=== PATIENT | male | born 1945 | race Caucasian/White ===

== ENCOUNTER 2018-08-20 19:29 | Inpatient (IN) | payer MEDICARE, OTHER, SELFPAY ==
[2018-08-20] VITALS (14 sets, daily range): BP systolic 101–150; BP diastolic 49–90; PULSE 93–110; RESP 18–23; TEMP 36.7–37.1; O2SAT 84–95; BMI 33.4; BMI 33.9
--- NOTE | 2018-08-20 19:34 | ED.RN ---
RN CALLED FOR EKG, PULLED OLD EKGS FOR
--- NOTE | 2018-08-20 19:51 | EKG12_ITS ---
Test Reason : CP Blood Pressure : / mmHG Vent. Rate : 104 BPM Atrial Rate : 104 BPM P-R Int : 174 ms QRS Dur : 156 ms QT Int : 384 ms P-R-T Axes : 076 -17 123 degrees QTc Int : 504 ms Sinus tachycardia Non-specific intra-ventricular conduction block Abnormal ECG Confirmed by STEPHANE LAW, ESTEVAN ([id number]), order editor SHIVA LOCKWOOD ([id number]) on 08/22/2018 9:30:23 AM Referred By: Alex Patel Confirmed By:ESTEVAN CALEDRÓN MD
--- NOTE | 2018-08-20 19:51 | RAD_ITS ---
STUDY: X-RAY CHEST REASON FOR EXAM: Male, 73 years old. Chest pain TECHNIQUE: Frontal view of the chest COMPARISON: None. FINDINGS: There are mild congestive changes noted. The lungs are otherwise clear. There are no pleural effusions. There is no pneumothorax. The heart is enlarged. The patient is status post sternotomy. The visualized osseous structures are within normal limits. RAD/Chest 1 View (Portable) IMPRESSION: Cardiomegaly with mild pulmonary vascular congestion. Electronically Signed: Jimmy Deluca, at 20:09 EDT Tel , Service support ,
--- NOTE | 2018-08-20 19:52 | ED.VISSUMM ---
- ER Visit Summary Date of Service: 08/20/18 Chief Complaint: Chest pain History of Present Illness: The patient is a 73 M who presents for chest pain since yesterday. Patient states he has worse pain under the left breast but radiating into the entire anterior chest. No radiation into the back, abdomen, neck or arms. Patient has associated shortness of breath, especially with mild exertion. Patient normally has good exercise tolerance. Patient has nausea. Denies fever, vomiting or diarrhea, back pain. Patient has history of bypass x2, COPD, hypertension, diabetes. He is currently on 81 mg aspirin daily but no blood thinners. He does not smoke. Physical Examination: Vital signs: afebrile, hemodynamically stable, 92% on nasal cannula, hypoxia on room air General: well nourished, well developed, in mild distress Skin: warm, dry, no rash, no pallor HEENT: normocephalic and atraumatic; PERRL, EOMI, moist mucous membranes Cardiovascular: regular rate and rhythm without murmurs, no peripheral edema, 2+ pulses all distal extremities Respiratory: Mild increased work of breathing with tachypnea, lungs are diffusely diminished with inspiratory rales and expiratory wheezes Abdominal: Abdomen is soft, nontender with normoactive bowel sounds, no guarding or rebound, no masses MSK: Moves all extremities, no deformities, normal strength Neuro: Awake and alert, oriented ?4. No facial droop, sensation and motor function intact and symmetric Test Results: Abnormal Lab Results 08/20/18 08/20/18 08/20/18 19:40 19:40 19:40 WBC 18.2 H RBC 4.17 L Hgb 11.4 L Hct 36.1 L MCV 86.6 MCH 27.3 MCHC 31.6 L RDW 16.3 H RDW Differential 52.0 H Plt Count 183 MPV 10.6 Immature Gran % (Auto) 0.200 Neut % (Auto) 78.9 H Lymph % (Auto) 13.1 L [place] % (Auto) 7.4 Eos % (Auto) 0.3 Baso % (Auto) 0.1 Absolute Neuts (auto) 14.4 H Absolute Lymphs (auto) 2.39 Total Counted Not Reportable PT 14.9 INR 1.2 APTT 33.8 Sodium 138 Potassium 4.3 Chloride 109 H Carbon Dioxide 23.0 Anion Gap 6 BUN 36 H Creatinine 1.87 H Estim Creat Clear Calc 31.52 Est GFR (MDRD) Af Amer 46 L Est GFR (MDRD) Non-Af 38 L BUN/Creatinine Ratio 19.3 Glucose 228 H Calcium 8.6 Troponin I 3.190 H* B-Natriuretic Peptide 08/20/18 19:40 WBC RBC Hgb Hct MCV MCH MCHC RDW RDW Differential Plt Count MPV Immature Gran % (Auto) Neut % (Auto) Lymph % (Auto) [place] % (Auto) Eos % (Auto) Baso % (Auto) Absolute Neuts (auto) Absolute Lymphs (auto) Total Counted PT INR APTT Sodium Potassium Chloride Carbon Dioxide Anion Gap BUN Creatinine Estim Creat Clear Calc Est GFR (MDRD) Af Amer Est GFR (MDRD) Non-Af BUN/Creatinine Ratio Glucose Calcium Troponin I B-Natriuretic Peptide 472.5 H Clinical Impression(s) from Imaging Studies Chest X-Ray 08/20/18 19:51 IMPRESSION: Cardiomegaly with mild pulmonary vascular congestion. Electronically Signed: Jimmy Deluca, at 20:09 EDT Tel , Service support , Medications Given Discontinued Medications Aspirin (Aspirin, Baby) 324 mg PO X1 STA Stop: 08/20/18 19:52 Last Admin: 08/20/18 19:58 Dose: 324 mg Clopidogrel Bisulfate (Plavix) 300 mg PO X1 ONE Stop: 08/20/18 20:51 Last Admin: 08/20/18 21:07 Dose: 300 mg Enoxaparin Sodium (Lovenox) 90 mg SC X1 ONE Stop: 08/20/18 20:51 Last Admin: 08/20/18 21:06 Dose: 90 mg Furosemide (Lasix) 40 mg IV X1 ONE Stop: 08/20/18 20:25 Last Admin: 08/20/18 20:51 Dose: 40 mg Nitroglycerin (Nitrostat) 0.4 mg SUBLINGUAL Q5M DONA Stop: 08/20/18 20:11 Last Admin: 08/20/18 20:11 Dose: Not Given Admin: 08/20/18 20:10 Dose: Not Given Admin: 08/20/18 19:58 Dose: 0.4 mg Nitroglycerin (Nitrostat) 0.4 mg SUBLINGUAL X1 ONE Stop: 08/20/18 21:43 Last Admin: 08/20/18 21:44 Dose: 1 tab Nitroglycerin (Nitrostat) 0.4 mg SUBLINGUAL X1 ONE Stop: 08/20/18 21:46 Last Admin: 08/20/18 21:50 Dose: 1 tab Emergency Department Course and Treatment: Patient presents with chest pain, shortness of breath worse on exertion, and lung exam concerning for acute CHF. EKG showed left bundle branch block with no STEMI per Sgarbossa criteria. Chest x-ray was consistent with acute CHF. Patient had leukocytosis of 18.2. Troponin was elevated at 3.19. BNP 472. At initial presentation patient had been given aspirin and sublingual nitroglycerin. He had complete resolution of his chest discomfort after the nitro. Because his presentation was concerning for acute CHF at that point, he was also given IV Lasix. After the elevated troponin came back, patient was discussed with Dr. Maynard for evaluation of concern for acute coronary syndrome. Patient was given subcutaneous Lovenox and loading dose of Plavix. Patient was evaluated by Dr. Maynard in the emergency department. He was admitted for further management of NSTEACS. Patient did have return of chest discomfort and was given additional nitro. A repeat EKG showed no changes from the initial one. Patient was discussed with the hospitalist for admission for further management of acute coronary syndrome. Critical care time of 40 minutes for initial evaluation and stabilization, coordination of care, discussion with master merchandiser and hospitalist, frequent reevaluations, interpretation of labs and EKGs, documentation. Treatment Plan: [] Disposition: [] Impression: non-ST elevation ACS (NSTEACS), acute CHF This note was generated with ECOation software. It may contain incorrect words, spelling, and punctuation that were not noted in review of the chart prior to signing ED Disposition - Plan for ED Patient: Disposition: Acute Care [facility]
[2018-08-20] MEDS: Aspirin 81 MG TAB.CHEW 324 MG PO (19:58)
[2018-08-20 20:08] LABS: Absolute Lymphocyte Count 2.39 X10^3/ul (0.83-4.51); Absolute Neutrophil Count 14.4 X10^3/uL (2.0-7.7); Basophil# 0.02 X10^3/uL; Basophil% 0.1 % (0-1); Eosinophil# 0.05 X10^3/uL; Eosinophils% 0.3 % (0-5); Hematocrit 36.1 % (40-54); Hemoglobin 11.4 g/dl (13.0-16.5); Lymphocyte # 2.39 X10^3/ul (4.0); Lymphocyte % 13.1 % (19-41); Mean Corp Hgb Conc 31.6 g/gl (32-36); Mean Corpuscular Hgb 27.3 pg (27.0-32.0); Mean Corpuscular Volume 86.6 fL (80-94); Mean Platelet Vol. 10.6 fl (6.2-12.0); Monocyte# 1.34 X10^3/uL; Monocyte% 7.4 % (0-10); Neutrophil # 14.36 X10^3/uL (2.7-7.7); Neutrophil % 78.9 % (47-70); Platelet Count 183 K/mm3 (150-450); RBC Distribution Width CV 16.3 % (11.6-14.6); Red Blood Count 4.17 M/mm3 (4.6-6.2); White Blood Count 18.2 K/mm3 (4.4-11.0)
[2018-08-20 20:11] LABS: POSITIVE COUNT NO; POSITIVE DIFFERENTIAL NO; POSITIVE MORPHOLOGY NO
[2018-08-20 20:20] LABS: International Normalized Ratio 1.2; Partial Thromboplast Time 33.8 Seconds (24.1-36.2); Prothrombin Time (Protime)PT. 14.9 SECONDS (11.7-14.9)
[2018-08-20 20:33] LABS: Anion Gap 6 (5-15); BUN 36 mg/dL (7-18); BUN/Creat Ratio 19.3 RATIO (10-20); Calcium,Total 8.6 mg/dL (8.5-10.1); Chloride 109 mmol/L (98-107); Creatinine, Serum 1.87 mg/dL (0.70-1.30); EST Glomerular Filtration Rate 38 mL/min (>60); Est Glom Filt Rate - Afr Amer 46 mL/min (>60); Estimated Creatinine Clearance 31.52 ml/min; Glucose 228 mg/dL (74-106); Potassium 4.3 mmol/L (3.5-5.1); Sodium Level 138 mmol/L (136-145)
--- NOTE | 2018-08-20 20:35 | ED.RN ---
LAB CALLED WITH CRITICAL LAB RESULTS. TROPIN LEVEL 3.912. DR. COLLINS MADE AWARE NO NEW ORDERS AT THIS TIME
[2018-08-20 20:42] LABS: BNP,B-Type NATRIURETIC PEPTIDE 472.5 pg/mL (0-100)
[2018-08-20] MEDS: Furosemide 40 MG/4 ML Vial IV (20:51)
[2018-08-20] MEDS: Enoxaparin 100 MG/ML Syringe 90 MG SC (21:06)
[2018-08-20] MEDS: Clopidogrel Bisulfate 300 MG Tablet PO (21:07)
--- NOTE | 2018-08-20 21:32 | PCM.HP.STD ---
Problem List (1) NSTEMI (non-ST elevated myocardial infarction) Status: Acute (2) Diabetes Status: Chronic (3) HTN (hypertension) Status: Chronic History of Present Illness Date of Admission: 08/21/18 Chief Complaint: chest pain The patient is a 73 year old M with a significant history of CAD status post CABG; and coronary stent; COPD; former smoker hypertension; and diabetes mellitus who presented to the emergency department with excruciating epigastric pain and precordial pain that started 2 days before presentation. Pain is nonradiating. It began while he was a passenger in a car. His pain is continuous. He rated his chest pain severity as a 10 out of 10. He received nitroglycerin at the emergency department that helped with the pain. His pain is exacerbated with walking. Associated with his symptoms is shortness of breath at rest which increases with exertion. EKG at the emergency department showed left bundle branch block. His troponin was severely elevated. Cardiology was consulted from the emergency department and patient received Lovenox and was loaded with Plavix. Past Medical History Past Medical History (Chronic Problems): Chronic Problems Diabetes (Chronic) HTN (hypertension) (Chronic) Allergies No Known Allergies Allergy (Verified 08/20/18 19:33) Home Medications: Ambulatory Orders Medication Instructions Recorded Aspirin [Aspirin, Baby] 81 mg PO DAILY@0800 08/20/18 Clopidogrel Bisulfate [Clopidogrel] 300 mg PO DAILY 08/20/18 Gabapentin [Neurontin] 400 mg PO TID 08/20/18 Glipizide 5 mg PO DAILY 08/20/18 Hydrocodone/Ibuprofen 1 each PO DAILY 08/20/18 [Hydrocodone-Ibuprofen 7.5-200] Metformin HCl [Glucophage] 500 mg PO BID 08/20/18 Sertraline HCl [Zoloft] 50 mg PO DAILY 08/20/18 Surgical History: coronary bypass surgery, - - CAD; bilateral femoropopliteals. Lives: Spouse/ Significant Other Smoking Status: Former smoker Alcohol: None - *Family History Maternal History Items: Heart Disease Paternal History Items: Heart Disease Review of Systems Constitutional: Denies: Chills, Fever, Weight Change HEENT: Denies: Head Aches, Sinus Congestion, Sinus Drainage Cardiovascular: Reports: Chest Pain. Denies: Palpitations Respiratory: Reports: Cough - Chronic, Shortness of breath at rest, Shortness of breath upon exertion, Wheezing. Denies: Sputum production Gastrointestinal: Reports: Abdominal Pain - Epigastric pain. Denies: Nausea, Vomiting Genitourinary: Denies: Dysuria Musculoskeletal: Denies: Joint Pain, Joint Tenderness Skin: Denies: Rash, Wounds Neurological: Denies: Numbness, Tingling, Focal weakness Psychiatric: Denies: Anxiety, Depression, Homicidal Ideations, Suicidal Ideations Hematologic/ Lymphatic: Denies: Easy Bruising, Easy Bleeding VTE Information - Inpt Only VTE Present on Admission: No VTE Mechan Device Prophylaxis: None VTE Pharm Prophylaxis ordered?: No Reason prophylaxis not ordered:: Treatment Not Indicated - Received therapeutic Lovenox for N STEMI Patient Problems: Active and Suspected Problems NSTEMI (non-ST elevated myocardial infarction) (Acute) - Physical Exam General: Alert, Oriented x3, Cooperative HEENT: Atraumatic, PERRLA, EOMI, Normocephalic Neck: Supple, No JVD, Negative Carotid Bruits Lungs: Tachypneic, Using Accessory Muscles, Wheezes Cardiovascular: No murmurs, Tachycardic Abdomen: Bowel Sounds Present, Soft, Non Tender Extremities: No edema, Capillary Refill Less than 3 Seconds Skin: No rashes, No breakdown Musculoskeletal: No Tenderness to Palpation of Joints or Extremities Neurological: Neuro grossly intact Psych/Mental Status: Normal Affect, Appropriate Vital Signs Temp Pulse Resp BP Pulse Ox 98.0 F 94 22 H 130/90 H 92 08/20/18 19:29 08/20/18 21:00 08/20/18 21:00 08/20/18 21:00 08/20/18 21:00 Oxygen Flow Rate (L/min) 4.5 Oxygen Delivery Method Nasal Cannula Weight: 91.1 kg Body Mass Index (BMI) 33.4 Laboratory Tests Past 24 Hrs 08/20/18 08/20/18 08/20/18 19:40 19:40 19:40 WBC 18.2 H RBC 4.17 L Hgb 11.4 L Hct 36.1 L MCV 86.6 MCH 27.3 MCHC 31.6 L RDW 16.3 H RDW Differential 52.0 H Plt Count 183 MPV 10.6 Immature Gran % (Auto) 0.200 Neut % (Auto) 78.9 H Lymph % (Auto) 13.1 L [place] % (Auto) 7.4 Eos % (Auto) 0.3 Baso % (Auto) 0.1 Absolute Neuts (auto) 14.4 H Absolute Lymphs (auto) 2.39 Total Counted Not Reportable PT 14.9 INR 1.2 APTT 33.8 Sodium 138 Potassium 4.3 Chloride 109 H Carbon Dioxide 23.0 Anion Gap 6 BUN 36 H Creatinine 1.87 H Estim Creat Clear Calc 31.52 Est GFR (MDRD) Af Amer 46 L Est GFR (MDRD) Non-Af 38 L BUN/Creatinine Ratio 19.3 Glucose 228 H Calcium 8.6 Troponin I 3.190 H* B-Natriuretic Peptide 08/20/18 19:40 WBC RBC Hgb Hct MCV MCH MCHC RDW RDW Differential Plt Count MPV Immature Gran % (Auto) Neut % (Auto) Lymph % (Auto) [place] % (Auto) Eos % (Auto) Baso % (Auto) Absolute Neuts (auto) Absolute Lymphs (auto) Total Counted PT INR APTT Sodium Potassium Chloride Carbon Dioxide Anion Gap BUN Creatinine Estim Creat Clear Calc Est GFR (MDRD) Af Amer Est GFR (MDRD) Non-Af BUN/Creatinine Ratio Glucose Calcium Troponin I B-Natriuretic Peptide 472.5 H Assessment/Plan All Active Problems NSTEMI (non-ST elevated myocardial infarction) (Acute) The patient is a 73 year old M with a significant history of CAD status post CABG; and coronary stent; hypertension; and diabetes mellitus who presented to the emergency department with excruciating epigastric pain and precordial pain and found to have left bundle branch block; and severely elevated troponin consistent with non-ST elevation RI. Non-ST elevation RI Admit to a monitored bed on PCU CXR independently reviewed confirms diffuse infiltrates. EKG independently reviewed confirms left bundle branch block. Received aspirin 325 mg at emergency department. Received loading dose of Plavix in the emergency department Plavix continued ASA 81 mg p.o. daily continue SL NTG 0.4 mg prn as needed for chest pain Morphine as needed for pain We will check lipid panel. Started on high intensity statin by cardiology. Review of labs showed elevated troponin of 3.190. Serial cardiac enzymes ordered Stat EKG as needed for chest pain Patient kept n.p.o. Cardiology is following. Plan is for cath in a.m. Congestive heart failure. Chest x-ray and independent review confirms bilateral infiltrates. Lasix 40 mg x1 ordered by cardiology. Patient started on beta-dileep and lisinopril. Cardiac cath planned in a.m. Hypertension On presentation his blood pressure was stable Started on goal-directed medication for heart failure by cardiology. Trend blood pressure and adjust blood pressure medications. Acute hypoxemic respiratory failure. Patient noted to be on 5 L with oxygen saturation in 93%. Denies home oxygen use. Patient wheezing; using accessory muscles of respiration and tachypnea. Probable viral infection. Patient noted to be wheezing that could also be from cardiac asthma Reportedly patient has a history of COPD reported that patient has been complaining of body aches. thinks that she herself has cold-like symptoms We will order a comprehensive respiratory pathogen panel. Obstructive sleep apnea Reportedly patient does not use any NPPV because of claustrophobia. On nasal cannula at this time because of hypoxia. Diabetes mellitus Presentation his blood glucose was not within goal. Home glipizide and metformin Accucheck qachs with correction scale insulin Hypoglycemia protocol ordered. Depression Zoloft continued. DVT prophylaxis Patient received therapeutic Lovenox for NSTEMI. Code Visit Inpatient E&M: 21053 Init Hosp L3
--- NOTE | 2018-08-20 21:44 | PCM.CONS.C ---
Reason for Consult Date of Consultation: 08/20/18 Reason for Consultation: Chest discomfort and abnormal cardiac enzymes History of Present Illness: The patient is a 73 year old M with a history of coronary artery bypass surgery, severe peripheral vascular disease status post previous femorofemoral bypass surgery, hypertension, dyslipidemia who presented to the emergency room today after complaining of shortness of breath and chest discomfort which has been going on for a few days. He previously has been followed up by a poultry hatchery manager in [place]. He denies any dizziness or diaphoresis no near syncope or syncope. He apparently has been compliant with his medications. In the emergency room he was noted to be short of breath and mildly hypertensive and tachycardic. His EKG demonstrated left bundle branch block. Cardiac enzymes came back and were noted to be abnormal. Cardiology was called for further evaluation and recommendations. At this particular time he is pain-free. He had been given sublingual nitroglycerin with significant improvement. [] Past Medical History Allergies/Adverse Reactions: Allergies No Known Allergies Allergy (Verified 08/20/18 19:33) Home Medications: Ambulatory Orders Medication Instructions Recorded Aspirin [Aspirin, Baby] 81 mg PO DAILY@0800 08/20/18 Clopidogrel Bisulfate [Clopidogrel] 300 mg PO DAILY 08/20/18 Gabapentin [Neurontin] 400 mg PO TID 08/20/18 Glipizide 5 mg PO DAILY 08/20/18 Hydrocodone/Ibuprofen 1 each PO DAILY 08/20/18 [Hydrocodone-Ibuprofen 7.5-200] Metformin HCl [Glucophage] 500 mg PO BID 08/20/18 Sertraline HCl [Zoloft] 50 mg PO DAILY 08/20/18 Surgical History: coronary bypass surgery, - - Peripheral vascular surgery Lives: Spouse/ Significant Other Smoking Status: Former smoker Tobacco Use: Non-smoker Alcohol: None Drugs: None Review of Systems - Review of Systems General: Denies: Fever, Night Sweats, Fatigue HEENT: Denies: Vision Change Cardiovascular: Reports: Chest Discomfort at Rest, Chest Discomfort with Exertion, Shortness of Breath at Rest, Peripheral Edema. Denies: Chest Discomfort, Shortness of Breath, Orthopnea, PND, Palpitations, Lightheadedness, Dizziness, Near Syncope, Syncope Respiratory: Denies: Cough, Sputum Production, Hemoptysis Gastrointestinal: Reports: Indigestion. Denies: Hematemesis, Hematochezia, Melena Genitourinary: Denies: Dysuria, Hematuria Muscoloskeletal: Denies: Myalgias Skin: Denies: Rash Neurological: Reports: Dizziness Psychiatric: Reports: Anxiety Endocrine: Reports: Heat Intolerance Hematologic/ Lymphatic: Denies: Anemia Subjectve: Pleasant gentleman in no apparent distress sitting in bed Objective: Vital Signs Temp Pulse Resp BP Pulse Ox 98.0 F 94 22 H 130/90 H 92 08/20/18 19:29 08/20/18 21:00 08/20/18 21:00 08/20/18 21:00 08/20/18 21:00 Oxygen Flow Rate (L/min) 4.5 Oxygen Delivery Method Nasal Cannula Weight: 200 lb 13.458 oz Body Mass Index (BMI) 33.4 General: Awake, Alert, Oriented x 3 HEENT: PERRL, EOMI, Sclera Non Icteric Neck: Supple, Good ROM, No Lymph Node Enlargement Lungs: Diminished Adrian Bases Cardiovascular: Regular Rhythm, Normal S1, Normal S2, No Murmurs, No Rubs, No Gallops Vascular: No Carotid Bruits, Normal Femoral Pulses, Normal Radial Pulses, Normal Dorsalis Pedal Pulse, Normal Posterior Tibial Pulses Abdomen: Bowel Sounds Present, Soft, Non Tender, No HSM, No Organomegaly Extremities: No Cyanosis, No Clubbing, Bilateral Edema +1 Musculoskeletal: No Erythema Skin: No Rashes Lymphatic: No Lymph Node Enlargement Neurological: No Focal Motor or Sensory Deficit Psych/Mental Status: Appropriate 08/20/18 19:40: WBC 18.2 H, RBC 4.17 L, Hgb 11.4 L, Hct 36.1 L, MCV 86.6, MCH 27.3, MCHC 31.6 L, RDW 16.3 H, RDW Differential 52.0 H, Plt Count 183, MPV 10.6, Immature Gran % (Auto) 0.200, Neut % (Auto) 78.9 H, Lymph % (Auto) 13.1 L, [place] % (Auto) 7.4, Eos % (Auto) 0.3, Baso % (Auto) 0.1, Absolute Neuts (auto) 14.4 H, Total Counted Not Reportable 08/20/18 19:40: PT 14.9, INR 1.2, APTT 33.8 08/20/18 19:40: Sodium 138, Potassium 4.3, Chloride 109 H, Carbon Dioxide 23.0, Anion Gap 6, BUN 36 H, Creatinine 1.87 H, Est GFR (MDRD) Af Amer 46 L, Est GFR (MDRD) Non-Af 38 L, BUN/Creatinine Ratio 19.3, Glucose 228 H, Calcium 8.6, Troponin I 3.190 H* 08/20/18 19:40: B-Natriuretic Peptide 472.5 H Rhythm: EKG: Sinus tachycardia with a left bundle branch block Assessment/Plan 1. Non-ST elevation myocardial infarction Patient presents with a non-ST elevation myocardial infarction. He does have known coronary artery disease. The exact bypass graft locations are not known. I would however recommend the following Aspirin 81 mg a day Clopidogrel loading with 300 mg Clopidogrel 75 mg a day Was scheduled for cardiac catheterization tomorrow via the left radial approach and depending on the findings further recommendations will be made. 2. Mild congestive heart failure Patient is noted to have mild congestive heart failure with the above secondary to the coronary artery disease Would recommend Lasix 40 mg x1 Echocardiogram to assess left ventricular function Start beta-dileep with Coreg 3.125 mg twice a day Start lisinopril 2.5 mg a day 3. Hypertension Blood pressure appears to be under decent control at this particular time we will start beta-dileep and ANTOINE inhibitor as noted above 4. Risk factor modification Will continue with aggressive risk factor modification Thank you for allowing me to participate in the care of your patient. Please don't hesitate to call if any issues arise
--- NOTE | 2018-08-20 21:46 | ED.RN ---
PT HAD INCREASED PAIN WITH EXERTION OF TAKING PANTS OFF AND TRYING TO URINATE. MD AWARE. ORDERED REMAINING TWO NTG SL. PT STABLE. WILL MONITOR.
--- NOTE | 2018-08-20 21:48 | CON.PCM_ITS ---
Reason for Consult Date of Consultation: 08/20/18 Reason for Consultation: Chest discomfort and abnormal cardiac enzymes History of Present Illness: The patient is a 73 year old M with a history of coronary artery bypass surgery, severe peripheral vascular disease status post previous femorofemoral bypass surgery, hypertension, dyslipidemia who presented to the emergency room today after complaining of shortness of breath and chest discomfort which has been going on for a few days. He previously has been followed up by a geriatric nurse in [place]. He denies any dizziness or diaphoresis no near syncope or syncope. He apparently has been compliant with his medications. In the emergency room he was noted to be short of breath and mildly hypertensive and tachycardic. His EKG demonstrated left bundle branch block. Cardiac enzymes came back and were noted to be abnormal. Cardiology was called for further evaluation and recommendations. At this particular time he is pain-free. He had been given sublingual nitroglycerin with significant improvement. [] Past Medical History Allergies/Adverse Reactions: Allergies No Known Allergies Allergy (Verified 08/20/18 19:33) Home Medications: Ambulatory Orders Medication Instructions Recorded Aspirin [Aspirin, Baby] 81 mg PO DAILY@0800 08/20/18 Clopidogrel Bisulfate [Clopidogrel] 300 mg PO DAILY 08/20/18 Gabapentin [Neurontin] 400 mg PO TID 08/20/18 Glipizide 5 mg PO DAILY 08/20/18 Hydrocodone/Ibuprofen 1 each PO DAILY 08/20/18 [Hydrocodone-Ibuprofen 7.5-200] Metformin HCl [Glucophage] 500 mg PO BID 08/20/18 Sertraline HCl [Zoloft] 50 mg PO DAILY 08/20/18 Surgical History: coronary bypass surgery, - - Peripheral vascular surgery Lives: Spouse/ Significant Other Smoking Status: Former smoker Tobacco Use: Non-smoker Alcohol: None Drugs: None Review of Systems - Review of Systems General: Denies: Fever, Night Sweats, Fatigue HEENT: Denies: Vision Change Cardiovascular: Reports: Chest Discomfort at Rest, Chest Discomfort with Exertion, Shortness of Breath at Rest, Peripheral Edema. Denies: Chest Discomfort, Shortness of Breath, Orthopnea, PND, Palpitations, Lightheadedness, Dizziness, Near Syncope, Syncope Respiratory: Denies: Cough, Sputum Production, Hemoptysis Gastrointestinal: Reports: Indigestion. Denies: Hematemesis, Hematochezia, Melena Genitourinary: Denies: Dysuria, Hematuria Muscoloskeletal: Denies: Myalgias Skin: Denies: Rash Neurological: Reports: Dizziness Psychiatric: Reports: Anxiety Endocrine: Reports: Heat Intolerance Hematologic/ Lymphatic: Denies: Anemia Subjectve: Pleasant gentleman in no apparent distress sitting in bed Objective: Vital Signs Temp Pulse Resp BP Pulse Ox 98.0 F 94 22 H 130/90 H 92 08/20/18 19:29 08/20/18 21:00 08/20/18 21:00 08/20/18 21:00 08/20/18 21:00 Oxygen Flow Rate (L/min) 4.5 Oxygen Delivery Method Nasal Cannula Weight: 200 lb 13.458 oz Body Mass Index (BMI) 33.4 General: Awake, Alert, Oriented x 3 HEENT: PERRL, EOMI, Sclera Non Icteric Neck: Supple, Good ROM, No Lymph Node Enlargement Lungs: Diminished Adrian Bases Cardiovascular: Regular Rhythm, Normal S1, Normal S2, No Murmurs, No Rubs, No Gallops Vascular: No Carotid Bruits, Normal Femoral Pulses, Normal Radial Pulses, Normal Dorsalis Pedal Pulse, Normal Posterior Tibial Pulses Abdomen: Bowel Sounds Present, Soft, Non Tender, No HSM, No Organomegaly Extremities: No Cyanosis, No Clubbing, Bilateral Edema +1 Musculoskeletal: No Erythema Skin: No Rashes Lymphatic: No Lymph Node Enlargement Neurological: No Focal Motor or Sensory Deficit Psych/Mental Status: Appropriate 08/20/18 19:40: WBC 18.2 H, RBC 4.17 L, Hgb 11.4 L, Hct 36.1 L, MCV 86.6, MCH 27.3, MCHC 31.6 L, RDW 16.3 H, RDW Differential 52.0 H, Plt Count 183, MPV 10.6, Immature Gran % (Auto) 0.200, Neut % (Auto) 78.9 H, Lymph % (Auto) 13.1 L, [place] % (Auto) 7.4, Eos % (Auto) 0.3, Baso % (Auto) 0.1, Absolute Neuts (auto) 14.4 H , Total Counted Not Reportable 08/20/18 19:40: PT 14.9, INR 1.2, APTT 33.8 08/20/18 19:40: Sodium 138, Potassium 4.3, Chloride 109 H, Carbon Dioxide 23.0, Anion Gap 6, BUN 36 H, Creatinine 1.87 H, Est GFR (MDRD) Af Amer 46 L, Est GFR (MDRD) Non-Af 38 L, BUN/Creatinine Ratio 19.3, Glucose 228 H, Calcium 8.6, Troponin I 3.190 H* 08/20/18 19:40: B-Natriuretic Peptide 472.5 H Rhythm: EKG: Sinus tachycardia with a left bundle branch block Assessment/Plan 1. Non-ST elevation myocardial infarction * Patient presents with a non-ST elevation myocardial infarction. He does have known coronary artery disease. The exact bypass graft locations are not known. I would however recommend the following * Aspirin 81 mg a day * Clopidogrel loading with 300 mg * Clopidogrel 75 mg a day * Was scheduled for cardiac catheterization tomorrow via the left radial approach and depending on the findings further recommendations will be made. * 2. Mild congestive heart failure * Patient is noted to have mild congestive heart failure with the above secondary to the coronary artery disease * Would recommend Lasix 40 mg x1 * Echocardiogram to assess left ventricular function * Start beta-dileep with Coreg 3.125 mg twice a day * Start lisinopril 2.5 mg a day * 3. Hypertension * Blood pressure appears to be under decent control at this particular time we will start beta-dileep and ANTOINE inhibitor as noted above * 4. Risk factor modification * Will continue with aggressive risk factor modification * * Thank you for allowing me to participate in the care of your patient. Please don't hesitate to call if any issues arise
--- NOTE | 2018-08-20 22:01 | EKG12_ITS ---
Test Reason : REPEAT CP Blood Pressure : / mmHG Vent. Rate : 104 BPM Atrial Rate : 104 BPM P-R Int : 172 ms QRS Dur : 148 ms QT Int : 378 ms P-R-T Axes : 078 -16 137 degrees QTc Int : 497 ms Sinus tachycardia Possible Left atrial enlargement Nonspecific intra ventricular conduction delay Abnormal ECG Confirmed by STEPHANE LAW, ESTEVAN ([id number]), news video editor SHIVA LOCKWOOD ([id number]) on 08/22/2018 9:31:09 AM Referred By: Alex Patel Confirmed By:ESTEVAN CALDERÓN MD
[2018-08-20] MEDS: Carvedilol 3.125 MG TABLET PO (23:26)
[2018-08-20] MEDS: Atorvastatin Calcium 40 MG Tablet PO (23:26)
[2018-08-20 23:40] LABS: Bedside Glucose 217 mg/dL (70-110)
--- NOTE | 2018-08-20 23:56 | EKG12_ITS ---
Test Reason : ADM EKG Blood Pressure : / mmHG Vent. Rate : 103 BPM Atrial Rate : 103 BPM P-R Int : 166 ms QRS Dur : 150 ms QT Int : 388 ms P-R-T Axes : 077 -16 122 degrees QTc Int : 508 ms Sinus tachycardia Possible Left atrial enlargement Left bundle branch block Abnormal ECG When compared with ECG of 17-JUL-2009 12:45, Vent. rate has increased BY 40 BPM Left bundle branch block is now Present Confirmed by DAX LAW, LIS ([id number]), supervising film or videotape editor SHIVA LOCKWOOD ([id number]) on 08/23/2018 9:54:01 AM Referred By: Alex Patel Confirmed By:LIS VERDUZCO MD
[2018-08-21] VITALS (15 sets, daily range): BP systolic 99–133; BP diastolic 50–82; PULSE 80–99; RESP 14–20; TEMP 36.6–36.8; O2SAT 91–94
[2018-08-21] MEDS: 0.9% NaCl Peripheral Flush Adult/Peds IV ×3 (00:55→16:55)
[2018-08-21] MEDS: Insulin Lispro 100 UNIT/ML INSULN.PEN SQ ×2 (00:57→16:58)
--- NOTE | 2018-08-21 05:55 | EKG12_ITS ---
Test Reason : AM EKG Blood Pressure : / mmHG Vent. Rate : 093 BPM Atrial Rate : 093 BPM P-R Int : 164 ms QRS Dur : 148 ms QT Int : 396 ms P-R-T Axes : 067 -16 131 degrees QTc Int : 492 ms Normal sinus rhythm Possible Left atrial enlargement Left bundle branch block Abnormal ECG When compared with ECG of 20-AUG-2018 23:56, MANUAL COMPARISON REQUIRED, DATA IS UNCONFIRMED Confirmed by DAX LAW, LIS ([id number]), manuscript editor SHIVA LOCKWOOD ([id number]) on 08/23/2018 9:52:15 AM Referred By: Alex Patel Confirmed By:LIS VERDUZCO MD
[2018-08-21] MEDS: Gabapentin 400 MG Capsule PO ×2 (06:14→13:03)
[2018-08-21] MEDS: Aspirin E.C. 81 MG Tablet PO (06:14)
[2018-08-21] MEDS: Clopidogrel Bisulfate 75 MG Tablet PO (06:14)
[2018-08-21] MEDS: Carvedilol 3.125 MG TABLET PO (06:14)
[2018-08-21] MEDS: 0.9% Normal Saline 1,000 ML 15 ML IV (06:15)
[2018-08-21 06:32] LABS: Absolute Lymphocyte Count 1.62 X10^3/ul (0.83-4.51); Absolute Neutrophil Count 10.8 X10^3/uL (2.0-7.7); Basophil# 0.01 X10^3/uL; Basophil% 0.1 % (0-1); Eosinophil# 0.05 X10^3/uL; Eosinophils% 0.4 % (0-5); Hematocrit 35.1 % (40-54); Hemoglobin 10.9 g/dl (13.0-16.5); Lymphocyte # 1.62 X10^3/ul (4.0); Lymphocyte % 11.9 % (19-41); Mean Corp Hgb Conc 31.1 g/gl (32-36); Mean Corpuscular Hgb 26.6 pg (27.0-32.0); Mean Corpuscular Volume 85.6 fL (80-94); Mean Platelet Vol. 10.6 fl (6.2-12.0); Monocyte# 1.15 X10^3/uL; Monocyte% 8.4 % (0-10); Neutrophil # 10.81 X10^3/uL (2.7-7.7); Platelet Count 162 K/mm3 (150-450); RBC Distribution Width CV 16.2 % (11.6-14.6); White Blood Count 13.7 K/mm3 (4.4-11.0)
[2018-08-21 06:35] LABS: Bedside Glucose 133 mg/dL (70-110)
[2018-08-21 06:37] LABS: POSITIVE COUNT NO; POSITIVE DIFFERENTIAL NO; POSITIVE MORPHOLOGY NO
[2018-08-21 06:41] LABS: International Normalized Ratio 1.2; Prothrombin Time (Protime)PT. 14.7 SECONDS (11.7-14.9)
--- NOTE | 2018-08-21 07:36 | NURSING ---
report called to laborer tanbark REGLA Eid
[2018-08-21 07:37] LABS: Anion Gap 2 (5-15); BUN 34 mg/dL (7-18); BUN/Creat Ratio 20.7 RATIO (10-20); Calcium,Total 8.8 mg/dL (8.5-10.1); Chloride 108 mmol/L (98-107); Cholesterol 113 mg/dL (200); Creatinine, Serum 1.64 mg/dL (0.70-1.30); EST Glomerular Filtration Rate 44 mL/min (>60); Est Glom Filt Rate - Afr Amer 54 mL/min (>60); Estimated Creatinine Clearance 35.94 ml/min; Glucose 128 mg/dL (74-106); High Density Lipoprotein 58 mg/dL; Potassium 4.2 mmol/L (3.5-5.1); Sodium Level 137 mmol/L (136-145); Triglycerides 123 mg/dL; Very Low Density Lipoprotein 25 mg/dL (5-40)
--- NOTE | 2018-08-21 09:33 | PN.CARD_ITS ---
Subjectve: Patient seen and evaluated. Objective: Vital Signs Temp Pulse Resp BP Pulse Ox 98.3 F 94 16 121/67 H 94 08/21/18 06:09 08/21/18 07:00 08/21/18 06:09 08/21/18 06:09 08/21/18 06:40 Oxygen Flow Rate (L/min) 4.5 Oxygen Delivery Method Nasal Cannula Weight: 203 lb 11.314 oz Body Mass Index (BMI) 33.9 Intake and Output for Last 24 Hours 08/19/18 08/20/18 08/21/18 23:59 23:59 23:59 Intake Total 400 / 400 Output Total 1250 / 1250 Balance -850 / -850 General: Awake, Alert, Oriented x 3 HEENT: PERRL, EOMI, Sclera Non Icteric Neck: Supple, Good ROM, No Lymph Node Enlargement Lungs: Clear to auscultation, Rales - Adrian Bases Cardiovascular: Regular Rhythm, Normal S1, Normal S2, No Murmurs, No Rubs, No Gallops Vascular: No Carotid Bruits, Normal Femoral Pulses, Normal Radial Pulses, Normal Dorsalis Pedal Pulse, Normal Posterior Tibial Pulses Abdomen: Bowel Sounds Present, Soft, Non Tender, No HSM, No Organomegaly Extremities: No Cyanosis, No Clubbing, No edema Neurological: No Focal Motor or Sensory Deficit Psych/Mental Status: Appropriate 08/20/18 19:40: WBC 18.2 H, RBC 4.17 L, Hgb 11.4 L, Hct 36.1 L, MCV 86.6, MCH 27.3, MCHC 31.6 L, RDW 16.3 H, RDW Differential 52.0 H, Plt Count 183, MPV 10.6, Immature Gran % (Auto) 0.200, Neut % (Auto) 78.9 H, Lymph % (Auto) 13.1 L, [place] % (Auto) 7.4, Eos % (Auto) 0.3, Baso % (Auto) 0.1, Absolute Neuts (auto) 14.4 H, Total Counted Not Reportable 08/20/18 19:40: PT 14.9, INR 1.2, APTT 33.8 08/20/18 19:40: Sodium 138, Potassium 4.3, Chloride 109 H, Carbon Dioxide 23.0, Anion Gap 6, BUN 36 H, Creatinine 1.87 H, Est GFR (MDRD) Af Amer 46 L, Est GFR ( MDRD) Non-Af 38 L, BUN/Creatinine Ratio 19.3, Glucose 228 H, Calcium 8.6, Troponin I 3.190 H* 08/20/18 19:40: B-Natriuretic Peptide 472.5 H 08/21/18 00:10: Troponin I 3.650 H* 08/21/18 03:26: Troponin I 4.580 H* 08/21/18 06:00: Sodium 137, Potassium 4.2, Chloride 108 H, Carbon Dioxide 27.0, Anion Gap 2 L, BUN 34 H, Creatinine 1.64 H, Est GFR (MDRD) Af Amer 54 L, Est GFR (MDRD) Non-Af 44 L, BUN/Creatinine Ratio 20.7 H, Glucose 128 H, Calcium 8.8, Troponin I 4.480 H*, Triglycerides 123, Cholesterol 113, LDL Cholesterol 30, VLDL Cholesterol 25, HDL Cholesterol 58 08/21/18 06:00: WBC 13.7 H, RBC 4.10 L, Hgb 10.9 L, Hct 35.1 L, MCV 85.6, MCH 26.6 L, MCHC 31.1 L, RDW 16.2 H, RDW Differential 51.0 H, Plt Count 162, MPV 10.6, Immature Gran % (Auto) 0.200, Neut % (Auto) 79.0 H, Lymph % (Auto) 11.9 L, [place] % (Auto) 8.4, Eos % (Auto) 0.4, Baso % (Auto) 0.1, Absolute Neuts (auto) 10.8 H, Total Counted Not Reportable 08/21/18 06:00: PT 14.7, INR 1.2, APTT 42.0 H Rhythm: EKG: ECHO: Stress Test: Cardiac Cath: PCI: CT Surgery: Holter monitor: EPS: PPM: CXR: Chest CT Scan: Medical Necessity - Tobacco Use Smoking Status: Former smoker Tobacco Use: Non-smoker Assessment/Plan 1. Non-ST elevation myocardial infarction * Patient presents with a non-ST elevation myocardial infarction. He does have known coronary artery disease. The exact bypass graft locations are not known. I would however recommend the following * Aspirin 81 mg a day * Clopidogrel loading with 300 mg * Cardiac catheterization demonstrated the following: Distal high-grade left main coronary artery lesion. Totally occluded right coronary arteries Totally occluded left anterior descending artery. Ramus intermedius with moderate disease. Nondominant circumflex with moderate disease. Left internal mammary artery to the left anterior descending artery which is patent with collaterals from the left to right. No other saphenous vein grafts identified. Based on the above angiographic findings will consider angioplasty to the distal left main coronary artery. We will see how he does and transfer him to a tertiary care facility for the above. 2. Mild congestive heart failure * Patient is noted to have mild congestive heart failure with the above secondary to the coronary artery disease * Would recommend Lasix 40 mg x1 * Echocardiogram to assess left ventricular function * Start beta-dileep with Coreg 3.125 mg twice a day * Start lisinopril 2.5 mg a day * 3. Hypertension * Blood pressure appears to be under decent control at this particular time we will start beta-dileep and ANTOINE inhibitor as noted above * 4. Risk factor modification * Will continue with aggressive risk factor modification * * Thank you for allowing me to participate in the care of your patient. Please don't hesitate to call if any issues arise
[2018-08-21] MEDS: Sertraline 50 MG Tablet PO (09:58)
[2018-08-21 11:10] LABS: Bedside Glucose 134 mg/dL (70-110)
--- NOTE | 2018-08-21 12:34 | NURSING ---
Called [facility] transfer center, spoke with Shelby about transfer today. Shelby will call PCU with update on bed availability.Mery ARAUZ aware in PCU about probable transfer today.
--- NOTE | 2018-08-21 16:23 | RAD_ITS ---
STUDY: X-RAY CHEST REASON FOR EXAM: Male, 73 years old. Shortness breath TECHNIQUE: Frontal view of the chest COMPARISON: 08/20/2018 FINDINGS: There are minimal congestive changes noted. This is decreased when compared with the prior exam for The lungs are otherwise clear. There are no pleural effusions. There is no pneumothorax. The heart is enlarged, but stable. Again noted are sternotomy wires. The visualized osseous structures are within normal limits. RAD/Chest 1 View (Portable) IMPRESSION: Minimal pulmonary vascular congestion which is decreased when compared with the prior exam. Electronically Signed: Jimmy Deluca, at 16:48 EDT Tel , Service support ,
--- NOTE | 2018-08-21 16:30 | CL.D_ITS ---
Patient Name: JONAH ALEXANDRA Study Date: 08/21/2018 Performing: Rodrigo Maynard MD Ht: 65 inches 165 cm : 1945 Wt: 203.1 lbs 92 kg Age: 73 Gender: male BSA: 1.99 PROCEDURE(S) PERFORMED UK20-DKT/COR/CABG DC11-AO ROOT ANGIO WITH HEART CATH CLINICAL PROFILE AND INDICATIONS Indications: Suspected CAD, Stable Known CAD Heart Failure: NYHA Class: 3, Newly Diagnosed: Yes, Heart Failure Type: Systolic Stress/Imaging Stress/Image Study Performed: No CONCLUSIONS Severe coronary artery disease with distal left main high-grade stenosis, moderate disease noted in t he left circumflex artery, totally occluded right coronary artery and left anterior descending artery , patent left internal mammary artery to the left anterior descending artery. RECOMMENDATIONS Medical therapy Consider PCI to Left main DESCRIPTION OF PROCEDURE The patient arrived to the procedure lab. The risks and benefits of the procedure as well as a full d escription of our services here and current unavailability of surgical backup were fully explained to the patient and/or their significant other prior to the catheterization. The Timeout was completed, verifying the correct patient and procedure. The patient's procedural site was prepped and draped in the usual fashion. Local anesthetic was given subcutaneously to left radial region with Lidocaine 2%. Using a modified Seldinger technique, arterial access was obtained via the left radial artery, a 6Fr sheath was inserted. Left internal mammary artery graft to the LAD selective angiography was perfor med in multiple views using a 5 Fr. IM catheter. Right Coronary Artery selective angiography was then performed in multiple views using a 5 Fr. 4.0 Frederica catheter. Saphenous Vein graft to the unknown ar mike (occluded graft) selective angiography was performed in single view using a 5 Fr. 4.0 Frederica catheter. Left Coronary Artery selective angiography was performed in multiple views using a 5 Fr. 4.0 Frederica catheter. Ascending (root) aorta selective angiography was then performed in single vie w. Ascending (root) aorta selective angiography was then performed in single view. Left Coronary Hellen ry selective angiography was performed in multiple views using a 5 Fr. JL 4.5 catheter. Left Coronary Artery selective angiography was performed in multiple views using a 5 Fr. JL3.5 catheter.The arteri al sheath was pulled and a TR Band was applied for hemostasis 13 cc air CORONARY ANGIOGRAPHY DOMINANCE: Right Dominant LEFT HEART ASSESSMENT Left Ventricular Ejection Fraction: Not assessed LEFT MAIN: Distal 90 LEFT ANTERIOR DECENDING ARTERY: is occluded CIRCUMFLEX ARTERY: MID CIRC: Moderate luminal irregularities up to 50% RAMUS: No significant disease noted RIGHT CORONARY ARTERY: PROX RCA: is occluded GRAFTS: COLIN graft to the Mid LAD is patent Saphenous Vein graft to the RPDA is totally occluded COLLATERAL FLOW: Collateral flow from Left to Right AORTIC ROOT: Dilated COMPLICATIONS No Complications PROCEDURE MEDICATIONS Versed 1 mg IV Oxygen: 4.5 L/min via nasal cannula Lasix 40 mg IV 08/21/2018 08:33:26 Heparin diluted in 23cc Heparinized saline. Patient given 5cc IA of this solution. 08/21/2018 08:40:4 0 Verapamil 2.5mg, Ntg 100mcgs, 2000 units of Heparin diluted in 23cc Heparinized saline. Patient give n 5cc IA of this solution. 08/21/2018 08:40:40 SUMMARY OF HEMODYNAMIC DATA Time AIR REST ECG 08:18:48 AO 110/55 (76) SA 08:43:09 LV 130/16, 36 09:21:28 LVp 133/13, 33 09:21:33 AOp 128/65 (90) 09:21:38 Signed By Rodrigo Maynard MD On 08/21/2018 16:29:53 Rodrigo Maynard MD
[2018-08-21] MEDS: Ipratropium/Albuterol Sulfate 3 ML AMPUL.NEB INHALATION (16:46)
[2018-08-21] MEDS: Furosemide 100 MG/10 ML Vial 80 MG IV (16:54)
[2018-08-21 17:06] LABS: Bedside Glucose 163 mg/dL (70-110)
[2018-08-21] MEDS: Ceftriaxone 1 GM/50 ML BAG IV (17:22)
--- NOTE | 2018-08-21 18:44 | PCM.DC.SUM ---
Discharge Date and Diagnosis - Problem List Patient Problems: Active and Suspected Problems NSTEMI (non-ST elevated myocardial infarction) (Acute) Date of Admission: 08/21/18 Date of Discharge: 08/21/18 - Primary Discharge Diagnosis Active and Suspected Problems NSTEMI (non-ST elevated myocardial infarction) (Acute) L basilar pneumonia - Secondary Discharge Diagnosis Chronic Problems Diabetes Type II (Chronic) HTN (hypertension) (Chronic) morbid obesity Hx of JAYNE - non-compliant with CPAP Diabetic peripheral polyneuropathy Peripheral vascular disease History of CABG Normocytic anemia with an elevated RDW Chronic renal failure stage III Hospital Course and Treatment Imaging Results: 08/21/18 16:23 Chest 1 View (Portable) [RAD] Urgent Clinical Impression(s) from Imaging Studies Chest X-Ray 08/20/18 19:51 IMPRESSION: Cardiomegaly with mild pulmonary vascular congestion. Electronically Signed: Jimmy Deluca, at 20:09 EDT Tel , Service support , Chest X-Ray 08/21/18 16:23 IMPRESSION: Minimal pulmonary vascular congestion which is decreased when compared with the prior exam. Electronically Signed: Jimmy Deluca, at 16:48 EDT Tel , Service support , Laboratory Tests 08/21/18 08/21/18 08/21/18 Range/Units 16:57 11:03 06:22 WBC (4.4-11.0) K/mm3 RBC (4.6-6.2) M/mm3 Hgb (13.0-16.5) g/dl Hct (40-54) % MCV (80-94) fL MCH (27.0-32.0) pg MCHC (32-36) g/gl RDW (11.6-14.6) % RDW Differential (35.1-43.9) fl Plt Count (150-450) K/mm3 MPV (6.2-12.0) fl Immature Gran % (Auto) (0.0-0.9) % Neut % (Auto) (47-70) % Lymph % (Auto) (19-41) % [place] % (Auto) (0-10) % Eos % (Auto) (0-5) % Baso % (Auto) (0-1) % Absolute Neuts (auto) (2.0-7.7) X10^3/uL Absolute Lymphs (auto) (0.83-4.51) X10^3/ul Total Counted PT (11.7-14.9) SECONDS INR APTT (24.1-36.2) Seconds Sodium (136-145) mmol/L Potassium (3.5-5.1) mmol/L Chloride (98-107) mmol/L Carbon Dioxide (21.0-32.0) mmol/L Anion Gap (5-15) BUN (7-18) mg/dL Creatinine (0.70-1.30) mg/dL Estim Creat Clear Calc ml/min Est GFR (MDRD) Af Amer (>60) mL/min Est GFR (MDRD) Non-Af (>60) mL/min BUN/Creatinine Ratio (10-20) RATIO Glucose (74-106) mg/dL Calcium (8.5-10.1) mg/dL Troponin I (<0.045) ng/mL B-Natriuretic Peptide (0-100) pg/mL Triglycerides ( - 199) mg/dL Cholesterol (200) mg/dL LDL Cholesterol (0-130) mg/dL VLDL Cholesterol (5-40) mg/dL HDL Cholesterol (40 - ) mg/dL POC Glucose 163 H 134 H 133 H (70-110) mg/dL 08/21/18 08/21/18 08/21/18 Range/Units 06:00 06:00 06:00 WBC 13.7 H (4.4-11.0) K/mm3 RBC 4.10 L (4.6-6.2) M/mm3 Hgb 10.9 L (13.0-16.5) g/dl Hct 35.1 L (40-54) % MCV 85.6 (80-94) fL MCH 26.6 L (27.0-32.0) pg MCHC 31.1 L (32-36) g/gl RDW 16.2 H (11.6-14.6) % RDW Differential 51.0 H (35.1-43.9) fl Plt Count 162 (150-450) K/mm3 MPV 10.6 (6.2-12.0) fl Immature Gran % (Auto) 0.200 (0.0-0.9) % Neut % (Auto) 79.0 H (47-70) % Lymph % (Auto) 11.9 L (19-41) % [place] % (Auto) 8.4 (0-10) % Eos % (Auto) 0.4 (0-5) % Baso % (Auto) 0.1 (0-1) % Absolute Neuts (auto) 10.8 H (2.0-7.7) X10^3/uL Absolute Lymphs (auto) 1.62 (0.83-4.51) X10^3/ul Total Counted Not Reportable PT 14.7 (11.7-14.9) SECONDS INR 1.2 APTT 42.0 H (24.1-36.2) Seconds Sodium 137 (136-145) mmol/L Potassium 4.2 (3.5-5.1) mmol/L Chloride 108 H (98-107) mmol/L Carbon Dioxide 27.0 (21.0-32.0) mmol/L Anion Gap 2 L (5-15) BUN 34 H (7-18) mg/dL Creatinine 1.64 H (0.70-1.30) mg/dL Estim Creat Clear Calc 35.94 ml/min Est GFR (MDRD) Af Amer 54 L (>60) mL/min Est GFR (MDRD) Non-Af 44 L (>60) mL/min BUN/Creatinine Ratio 20.7 H (10-20) RATIO Glucose 128 H (74-106) mg/dL Calcium 8.8 (8.5-10.1) mg/dL Troponin I 4.480 H* (<0.045) ng/mL B-Natriuretic Peptide (0-100) pg/mL Triglycerides 123 ( - 199) mg/dL Cholesterol 113 (200) mg/dL LDL Cholesterol 30 (0-130) mg/dL VLDL Cholesterol 25 (5-40) mg/dL HDL Cholesterol 58 (40 - ) mg/dL POC Glucose (70-110) mg/dL 08/21/18 08/21/18 08/20/18 Range/Units 03:26 00:10 23:37 WBC (4.4-11.0) K/mm3 RBC (4.6-6.2) M/mm3 Hgb (13.0-16.5) g/dl Hct (40-54) % MCV (80-94) fL MCH (27.0-32.0) pg MCHC (32-36) g/gl RDW (11.6-14.6) % RDW Differential (35.1-43.9) fl Plt Count (150-450) K/mm3 MPV (6.2-12.0) fl Immature Gran % (Auto) (0.0-0.9) % Neut % (Auto) (47-70) % Lymph % (Auto) (19-41) % [place] % (Auto) (0-10) % Eos % (Auto) (0-5) % Baso % (Auto) (0-1) % Absolute Neuts (auto) (2.0-7.7) X10^3/uL Absolute Lymphs (auto) (0.83-4.51) X10^3/ul Total Counted PT (11.7-14.9) SECONDS INR APTT (24.1-36.2) Seconds Sodium (136-145) mmol/L Potassium (3.5-5.1) mmol/L Chloride (98-107) mmol/L Carbon Dioxide (21.0-32.0) mmol/L Anion Gap (5-15) BUN (7-18) mg/dL Creatinine (0.70-1.30) mg/dL Estim Creat Clear Calc ml/min Est GFR (MDRD) Af Amer (>60) mL/min Est GFR (MDRD) Non-Af (>60) mL/min BUN/Creatinine Ratio (10-20) RATIO Glucose (74-106) mg/dL Calcium (8.5-10.1) mg/dL Troponin I 4.580 H* 3.650 H* (<0.045) ng/mL B-Natriuretic Peptide (0-100) pg/mL Triglycerides ( - 199) mg/dL Cholesterol (200) mg/dL LDL Cholesterol (0-130) mg/dL VLDL Cholesterol (5-40) mg/dL HDL Cholesterol (40 - ) mg/dL POC Glucose 217 H (70-110) mg/dL 08/20/18 08/20/1819 Range/Units 19:40 19:40 19:40 WBC (4.4-11.0) K/mm3 RBC (4.6-6.2) M/mm3 Hgb (13.0-16.5) g/dl Hct (40-54) % MCV (80-94) fL MCH (27.0-32.0) pg MCHC (32-36) g/gl RDW (11.6-14.6) % RDW Differential (35.1-43.9) fl Plt Count (150-450) K/mm3 MPV (6.2-12.0) fl Immature Gran % (Auto) (0.0-0.9) % Neut % (Auto) (47-70) % Lymph % (Auto) (19-41) % [place] % (Auto) (0-10) % Eos % (Auto) (0-5) % Baso % (Auto) (0-1) % Absolute Neuts (auto) (2.0-7.7) X10^3/uL Absolute Lymphs (auto) (0.83-4.51) X10^3/ul Total Counted PT 14.9 (11.7-14.9) SECONDS INR 1.2 APTT 33.8 (24.1-36.2) Seconds Sodium 138 (136-145) mmol/L Potassium 4.3 (3.5-5.1) mmol/L Chloride 109 H (98-107) mmol/L Carbon Dioxide 23.0 (21.0-32.0) mmol/L Anion Gap 6 (5-15) BUN 36 H (7-18) mg/dL Creatinine 1.87 H (0.70-1.30) mg/dL Estim Creat Clear Calc 31.52 ml/min Est GFR (MDRD) Af Amer 46 L (>60) mL/min Est GFR (MDRD) Non-Af 38 L (>60) mL/min BUN/Creatinine Ratio 19.3 (10-20) RATIO Glucose 228 H (74-106) mg/dL Calcium 8.6 (8.5-10.1) mg/dL Troponin I 3.190 H* (<0.045) ng/mL B-Natriuretic Peptide 472.5 H (0-100) pg/mL Triglycerides ( - 199) mg/dL Cholesterol (200) mg/dL LDL Cholesterol (0-130) mg/dL VLDL Cholesterol (5-40) mg/dL HDL Cholesterol (40 - ) mg/dL POC Glucose (70-110) mg/dL 08/20/18 Range/Units 19:40 WBC 18.2 H (4.4-11.0) K/mm3 RBC 4.17 L (4.6-6.2) M/mm3 Hgb 11.4 L (13.0-16.5) g/dl Hct 36.1 L (40-54) % MCV 86.6 (80-94) fL MCH 27.3 (27.0-32.0) pg MCHC 31.6 L (32-36) g/gl RDW 16.3 H (11.6-14.6) % RDW Differential 52.0 H (35.1-43.9) fl Plt Count 183 (150-450) K/mm3 MPV 10.6 (6.2-12.0) fl Immature Gran % (Auto) 0.200 (0.0-0.9) % Neut % (Auto) 78.9 H (47-70) % Lymph % (Auto) 13.1 L (19-41) % [place] % (Auto) 7.4 (0-10) % Eos % (Auto) 0.3 (0-5) % Baso % (Auto) 0.1 (0-1) % Absolute Neuts (auto) 14.4 H (2.0-7.7) X10^3/uL Absolute Lymphs (auto) 2.39 (0.83-4.51) X10^3/ul Total Counted Not Reportable PT (11.7-14.9) SECONDS INR APTT (24.1-36.2) Seconds Sodium (136-145) mmol/L Potassium (3.5-5.1) mmol/L Chloride (98-107) mmol/L Carbon Dioxide (21.0-32.0) mmol/L Anion Gap (5-15) BUN (7-18) mg/dL Creatinine (0.70-1.30) mg/dL Estim Creat Clear Calc ml/min Est GFR (MDRD) Af Amer (>60) mL/min Est GFR (MDRD) Non-Af (>60) mL/min BUN/Creatinine Ratio (10-20) RATIO Glucose (74-106) mg/dL Calcium (8.5-10.1) mg/dL Troponin I (<0.045) ng/mL B-Natriuretic Peptide (0-100) pg/mL Triglycerides ( - 199) mg/dL Cholesterol (200) mg/dL LDL Cholesterol (0-130) mg/dL VLDL Cholesterol (5-40) mg/dL HDL Cholesterol (40 - ) mg/dL POC Glucose (70-110) mg/dL Microbiology 08/21/18 05:13 Mucosa - Nasopharyngeal Respiratory Panel (PCR) [facility] None Procedures: Cardiac catheterization - 90% stenosis of the distal left main artery, left anterior descending artery is occluded, circumflex artery has moderate luminal irregularities up to 50%, ramus has no significant disease, proximal RCA is occluded, COLIN graft to the mid LAD is patent, saphenous vein graft to the RPDA is totally occluded. Left ventricular ejection fraction was not assessed. Summary of Care Provided: The patient is a 73 year old M with a past medical history of tobacco dependence (he has quit), hypertension, hyperlipidemia, left bundle branch block stage III chronic renal failure, coronary artery disease, history of CABG, peripheral vascular disease with history of stents, obstructive sleep apnea (noncompliant with CPAP), diabetes mellitus type 2 and morbid obesity who presented to the emergency department at [facility] on 08/20/2018 complaining of excruciating epigastric pain associated with chest pain. The pain had started at rest and was continuous. It was exacerbated by walking. It was associated with shortness of breath. He was given nitroglycerin in the emergency department which improved his pain. Pulse ox at presentation to the ER on room air was 84%. EKG in the emergency room showed a left bundle branch block. Troponin was elevated at 3.19. Chest x-ray showed findings consistent with acute congestive heart failure. There was also suspicion of infiltrate in the left base. The patient had been coughing and his though they both had a virus. Labs showed an elevated white blood cell count at 18.2 with a left shift. Hemoglobin was 11.4 with an MCV of 86.6 and increased RDW at 16.3. Platelets were within normal limits. Chemistry showed an elevated BUN at 36 with a creatinine of 1.87 and he is known to have stage III chronic renal failure. BNP was 472.5. He was admitted to a monitored bed on PCU with a diagnosis of NSTEMI and serial cardiac enzymes were ordered. Consultation with Dr. Rodrigo Maynard from cardiology was also ordered. He was loaded with Plavix 300 mg and scheduled for a cardiac catheterization on 08/21/18. IV Lasix was administered and he was started on lisinopril 2.5 mg daily and Coreg 3.125 mg. On 08/21/2018 he was afebrile with stable vital signs. He was 94% saturated on a 4-1/2 L nasal cannula. Lipid panel showed an LDL of 30 and an HDL of 58. Triglycerides were 123. Troponin peaked at 4.58. Creatinine actually improved with diuresis and was 1.64 with a BUN of 34. Blood sugars were well controlled. He was taken to the [facility] which showed a 90% occlusion of the distal left main, left anterior descending artery was totally occluded but the COLIN to the mid LAD was patent. The circumflex artery had up to 50% luminal irregularities and the ramus had no significant disease. The proximal RCA was occluded. Saphenous vein graft to the RPDA was totally occluded. Dr. Maynard was in communication with [facility] and the patient is to be transferred for possible stent. Prior to transfer he became acutely short of breath and had tachypnea with accessory muscle use on a 4-1/2 L nasal cannula. He is on 3 different type inhalers at home but he could not recall the names. He was given an aerosol with DuoNeb and a chest x-ray was obtained which showed good resolution of pulmonary vascular congestion but persistent patchy infiltrates in the left base which obscure the left heart border. White blood cell count is still elevated with left shift. He was given Rocephin and azithromycin. When he was examined again approximately 1 hour later his breathing had is improved and he denied shortness of breath. He was not tachypneic and there was no accessory muscle use. He is going to be transported to [facility]. General: alert, oriented X3, appears to be SOB and he is tachypneic Neck: supple, trachea midline, no nodes, no carotid bruits appreciated Lungs: Diminished breath sounds throughout, coarse crackles in the left base that persist after several deep breaths, no wheezing, no rhonchi, right base is clear to auscultation, symmetric chest expansion, tachypneic and using accessory muscles of respiration Heart: Regular rate and rhythm, normal S1, normal S2, no murmur, no gallop, no rub Abdomen: soft, NT, ND, BS's present, obese Extremities: no edema, no calf tenderness, peripheral pulses are normal, no cyanosis Patient was reexamined one hour later and still had persistent coarse crackles in the left base but he was no longer tachypneic and denied shortness of breath. This note was generated with [employer] dictation software. It may contain incorrect words, spelling, and punctuation that were not noted in checking the note before signing. Patient Problems: Active and Suspected Problems NSTEMI (non-ST elevated myocardial infarction) (Acute) - Physical Exam Vital Signs Temp Pulse Resp BP Pulse Ox 98.3 F 80 19 H 131/69 H 92 08/21/18 15:50 08/21/18 16:46 08/21/18 16:46 08/21/18 15:50 08/21/18 16:46 Oxygen Flow Rate (L/min) 3.5 Oxygen Delivery Method Nasal Cannula Weight: 203 lb 11.314 oz Body Mass Index (BMI) 33.9 Intake and Output for Last 24 Hours 08/19/18 08/20/18 08/21/18 23:59 23:59 23:59 Intake Total 1330 / 1330 Output Total 3000 / 3000 Balance -1670 / -1670 Microbiology Past 72 Hours 08/21/18 05:13 Respiratory Panel (PCR) - Final Mucosa - Nasopharyngeal Laboratory Tests Past 24 Hrs 08/20/18 08/20/18 08/20/18 19:40 19:40 19:40 WBC 18.2 H RBC 4.17 L Hgb 11.4 L Hct 36.1 L MCV 86.6 MCH 27.3 MCHC 31.6 L RDW 16.3 H RDW Differential 52.0 H Plt Count 183 MPV 10.6 Immature Gran % (Auto) 0.200 Neut % (Auto) 78.9 H Lymph % (Auto) 13.1 L [place] % (Auto) 7.4 Eos % (Auto) 0.3 Baso % (Auto) 0.1 Absolute Neuts (auto) 14.4 H Absolute Lymphs (auto) 2.39 Total Counted Not Reportable PT 14.9 INR 1.2 APTT 33.8 Sodium 138 Potassium 4.3 Chloride 109 H Carbon Dioxide 23.0 Anion Gap 6 BUN 36 H Creatinine 1.87 H Estim Creat Clear Calc 31.52 Est GFR (MDRD) Af Amer 46 L Est GFR (MDRD) Non-Af 38 L BUN/Creatinine Ratio 19.3 Glucose 228 H Calcium 8.6 Troponin I 3.190 H* B-Natriuretic Peptide Triglycerides Cholesterol LDL Cholesterol VLDL Cholesterol HDL Cholesterol 08/20/18 08/21/18 08/21/18 19:40 00:10 03:26 WBC RBC Hgb Hct MCV MCH MCHC RDW RDW Differential Plt Count MPV Immature Gran % (Auto) Neut % (Auto) Lymph % (Auto) [place] % (Auto) Eos % (Auto) Baso % (Auto) Absolute Neuts (auto) Absolute Lymphs (auto) Total Counted PT INR APTT Sodium Potassium Chloride Carbon Dioxide Anion Gap BUN Creatinine Estim Creat Clear Calc Est GFR (MDRD) Af Amer Est GFR (MDRD) Non-Af BUN/Creatinine Ratio Glucose Calcium Troponin I 3.650 H* 4.580 H* B-Natriuretic Peptide 472.5 H Triglycerides Cholesterol LDL Cholesterol VLDL Cholesterol HDL Cholesterol 08/21/18 08/21/18 08/21/18 06:00 06:00 06:00 WBC 13.7 H RBC 4.10 L Hgb 10.9 L Hct 35.1 L MCV 85.6 MCH 26.6 L MCHC 31.1 L RDW 16.2 H RDW Differential 51.0 H Plt Count 162 MPV 10.6 Immature Gran % (Auto) 0.200 Neut % (Auto) 79.0 H Lymph % (Auto) 11.9 L [place] % (Auto) 8.4 Eos % (Auto) 0.4 Baso % (Auto) 0.1 Absolute Neuts (auto) 10.8 H Absolute Lymphs (auto) 1.62 Total Counted Not Reportable PT 14.7 INR 1.2 APTT 42.0 H Sodium 137 Potassium 4.2 Chloride 108 H Carbon Dioxide 27.0 Anion Gap 2 L BUN 34 H Creatinine 1.64 H Estim Creat Clear Calc 35.94 Est GFR (MDRD) Af Amer 54 L Est GFR (MDRD) Non-Af 44 L BUN/Creatinine Ratio 20.7 H Glucose 128 H Calcium 8.8 Troponin I 4.480 H* B-Natriuretic Peptide Triglycerides 123 Cholesterol 113 LDL Cholesterol 30 VLDL Cholesterol 25 HDL Cholesterol 58 POC Glucose 08/21/18 08/21/18 08/21/18 16:57 11:03 06:22 POC Glucose 163 H 134 H 133 H 08/20/18 23:37 POC Glucose 217 H Home Medications: Medications to take at Discharge Gabapentin [Neurontin] 400 mg PO TID 08/20/18 Glipizide 5 mg PO DAILY 08/20/18 Sertraline HCl [Zoloft] 50 mg PO DAILY 08/20/18 Aspirin E.C. [Ecotrin] 81 mg PO DAILY@0800 tablet 08/21/18 Atorvastatin Calcium [Lipitor] 40 mg PO QHS tablet 08/21/18 Azithromycin [Zithromax IVPB] 500 mg IV Q24 vial 08/21/18 Carvedilol [Coreg (Beta Enrique)] 3.125 mg PO BID tablet 08/21/18 Ceftriaxone [Rocephin] 1 gm IV Q24 bag 08/21/18 Clopidogrel Bisulfate [Plavix] 75 mg PO DAILY tablet 08/21/18 Ipratropium/Albuterol Sulfate [Duoneb] 3 ml INHALATION Q4HWA.RT ampul.neb 08/21/18 Nitroglycerin [Nitrostat] 0.4 mg SUBLINGUAL Q5M PRN tablet 08/21/18 Primary Care Physician: Mich Rosales MD [Primary Care Provider] - Disposition: Acute care Hospital Minutes spent on discharge:: 45 Patient Condition:: Stable Medical Necessity - Tobacco Use Smoking Status: Former smoker Tobacco Use: Non-smoker Meaningful Use Info Meaningful Use Diagnoses (Choose all that apply): AMI - AMI Aspirin given w/in 24hrs of arrival?: Yes ASA at discharge?: Yes Statins at discharge?: Yes Antwon/ARB at discharge?: Yes Beta Enrique at discharge?: Yes Done w/ Acute ME measure.: Yes Code Visit Inpatient E&M: 22880 Disch Hosp
--- NOTE | 2018-08-21 18:49 | NURSING ---
report called to Easton ARAUZ at [facility]
--- NOTE | 2018-08-22 14:01 | CASEMGMT ---
This RN MATT received message from that pt does have current [facility] coverage but [facility] is [facility] as [facility] at this time. requests that clinicals be faxed to [facility] at this time. Call to Karen in registration and she is aware that pt does have [facility] and states will update chart at this time. Clinical[facility]ed [facility] at this time and call placed to Melissa at [facility] and she is updated on all at this time, voices understanding. Melissa voices no further questions/concerns/needs at this time. Alysa ARAUZ CM
== END 2018-08-21 19:25 | disposition short-term general hospital (02) | DRG 280 ==
LOC: ED 20:38 → PCU 22:30
PROVIDERS: Internal Medicine Cardiovascular Disease; Admitting Provider Hospitalist; Emergency Provider Emergency Medicine; Family Provider Family Medicine; PCP Family Medicine; Referring Provider Hospitalist; Visit Provider Internal Medicine
DX: I21.4 Non-ST elevation (NSTEMI) myocardial infarction (principal); J96.01 Acute respiratory failure with hypoxia; J18.9 Pneumonia, unspecified organism; I13.0 Hypertensive heart and chronic kidney disease with heart failure and stage 1 through stage 4 chronic kidney disease, or unspecified chronic kidney disease; I25.810 Atherosclerosis of coronary artery bypass graft(s) without angina pectoris; F32.9 Major depressive disorder, single episode, unspecified; E11.42 Type 2 diabetes mellitus with diabetic polyneuropathy; E11.22 Type 2 diabetes mellitus with diabetic chronic kidney disease; N18.3 Chronic kidney disease, stage 3 (moderate); I50.9 Heart failure, unspecified; I25.10 Atherosclerotic heart disease of native coronary artery without angina pectoris; G47.33 Obstructive sleep apnea (adult) (pediatric); Z91.19 Patient's noncompliance with other medical treatment and regimen; Z95.1 Presence of aortocoronary bypass graft; Z95.5 Presence of coronary angioplasty implant and graft; Z79.84 Long term (current) use of oral hypoglycemic drugs; Z87.891 Personal history of nicotine dependence; D64.9 Anemia, unspecified; E11.51 Type 2 diabetes mellitus with diabetic peripheral angiopathy without gangrene; E66.01 Morbid (severe) obesity due to excess calories; Z68.33 Body mass index [BMI] 33.0-33.9, adult; E78.5 Hyperlipidemia, unspecified; I44.7 Left bundle-branch block, unspecified
CPT/HCPCS: 36415; 71045; 80048; 80061; 82962; 83880; 84484; 85025; 85610; 85730; 87633; 93005; 93455; 93567; 94640; 97161; 97165; 99152; 99153; 99285; J7030; A4216; C1769; C1894; J1940; Q9967

== ENCOUNTER → 2018-10-09 22:44 | Outpatient (CLI) | payer MEDICARE, OTHER, SELFPAY ==
[2018-08-20 23:01] VITALS: BMI 33.9
== END ==
PROVIDERS: Family Provider Family Medicine; PCP Family Medicine; Referring Provider Family Medicine; Visit Provider Family Medicine
DX: G47.33 Obstructive sleep apnea (adult) (pediatric) (principal)
CPT/HCPCS: 95811

== ENCOUNTER 2022-02-06 18:20 | Emergency (ER) | payer OTHER, SELFPAY ==
[2022-02-06 18:21] VITALS: BP 114/48; PULSE 91; RESP 18; TEMP 36.1; O2SAT 92; BMI 29.9
--- NOTE | 2022-02-06 18:31 | EX.ED.UPPERE ---
HPI History of Present Illness Chief Complaint: Wound Narrative Narrative: 76-year-old male presenting with superficial skin tear to the dorsum of the right distal forearm/wrist. He states he was outside looking under his car and when he stood up with his cane he fell into his car striking his left wrist and causing a skin tear. He is on Plavix. He was able to control bleeding. He denies pain. Patient feels well at this time. PFSH PFSH Home Medications gabapentin 400 mg capsule 400 mg PO TID NERVE PAIN 08/20/18 [History Last Taken 08/20/18] glipizide 5 mg tablet 5 mg PO DAILY DM 08/20/18 [History Last Taken 08/20/18] sertraline 50 mg tablet 50 mg PO DAILY DEPRESSION 08/20/18 [History Last Taken 08/20/18] aspirin 81 mg tablet,delayed release 81 mg PO DAILY@0800 08/21/18 [Rx Last Taken Unknown] atorvastatin 40 mg tablet 40 mg PO QHS 08/21/18 [Rx Last Taken Unknown] azithromycin 500 mg intravenous solution 500 mg IV Q24 08/21/18 [Rx Last Taken Unknown] carvedilol 3.125 mg tablet 3.125 mg PO BID 08/21/18 [Rx Last Taken Unknown] ceftriaxone 1 gram/50 mL in dextrose (iso-osmot) intravenous piggyback 1 g IV Q24 08/21/18 [Rx Last Taken Unknown] clopidogrel 75 mg tablet 75 mg PO DAILY 08/21/18 [Rx Last Taken Unknown] ipratropium 0.5 mg-albuterol 3 mg (2.5 mg base)/3 mL nebulization soln 3 ml inhalation Q4HWA.RT 08/21/18 [Rx Last Taken Unknown] nitroglycerin 0.4 mg sublingual tablet 0.4 mg sublingual Q5M PRN Angina pain 08/21/18 [Rx Last Taken Unknown] Allergy/AdvReac Type Severity Reaction Status Date / Time No Known Allergies Allergy Verified 02/06/22 18:21 Social History Smoking Status: Former smoker ROS ROS ED Constitutional Constitutional ED: Denies chills or fever(s) Eyes Eyes: Denies change in vision or diplopia ENT ENT ED: Denies rhinorrhea or sore throat Cardiovascular Cardiovascular: Denies chest pain or palpitations Respiratory/Chest Respiratory/Chest: Denies cough or dyspnea Gastrointestinal Gastrointestinal: Denies abdominal pain or constipation Genitourinary Genitourinary ED: Denies dysuria or hematuria Musculoskeletal Musculoskeletal: Denies back pain or myalgias Integumentary Reports other Details: Skin tear left forearm ; Denies abscess EXAM Physical Exam Const Vital Signs: 02/06/22 18:21 Temperature 97 F L Temperature Source Temporal Pulse Rate 91 Respiratory Rate 18 Blood Pressure 114/48 L Blood Pressure Mean 70 Pulse Ox 92 Oxygen Delivery Method Room Air Positive well nourished General Appearance ED: NAD HEENT Reports moist mucous membranes Resp normal respiratory effort Cardio regular rate and regular rhythm Extremity Extremity Narrative: There is a 7 cm superficial skin tear with a flap of skin extending from lateral to medially. There is no tendon, bone exposure. This is very superficial. Bleeding is controlled. There is a small 1 cm superficial skin tear on the area between the second and third MCP and the third and fourth MCP. These are not actively bleeding. Patient does not have any bony pain in the left hand, left wrist, left forearm. Patient maintains full range of motion of all of these. There is no obvious bony deformity. Neuro oriented x3, CN's II-XII intact bilaterally, moves all extremities, no focal motor deficits and no sensory deficits noted Sensorium / Orientation: alert Motor Exam: strength 5/5 throughout Psych mental status grossly normal Skin Skin Narrative: As described above MDM MDM MDM Narrative Medical decision making narrative: 76-year-old male presenting with a skin tear. This will not need to be sutured. Tetanus was updated. Wound was cleaned and dressed. He has 2 superficial small skin tears on the left hand as well which will be cleaned and dressed. He does not have any bony tenderness or deformity. He denies any pain. I do not believe he needs any x-rays. Patient counseled he will need to follow-up with his PCP to ensure resolution. Patient discharged in stable condition. Impression: 1. Mechanical fall 2. 7 cm skin tear left forearm 3. 1 cm skin tear between second and third MCP 2. 1 cm skin tear between third and fourth MCP Lab Data Attestation: I reviewed the patient's lab results. Discharge Plan Triage Chief Complaint: Wound ED Provider: Ori Vazquez Dx/Rx/DC Orders Instructions: ED Skin Avulsion Prescriptions: No Action gabapentin 400 MG capsule 400 mg PO TID sertraline 50 MG tablet 50 mg PO DAILY glipizide 5 MG tablet 5 mg PO DAILY atorvastatin 40 MG tablet 40 mg PO QHS 0RF ipratropium-albuterol 3 ML Ampul.Neb 3 ml inhalation Q4HWA.RT 0RF clopidogrel 75 MG tablet 75 mg PO DAILY 0RF aspirin 81 MG tablet 81 mg PO DAILY@0800 0RF carvedilol 3.125 MG tablet 3.125 mg PO BID 0RF azithromycin 500 MG/5 ML Vial 500 mg IV Q24 0RF nitroglycerin 0.4 MG tablet 0.4 mg sublingual Q5M PRN (Reason: Angina pain) 0RF ceftriaxone in dextrose,iso-os 1 GM/50 ML Bag 1 g IV Q24 0RF Primary Care Provider: Mich Rosales Referrals: Mich Rosales MD [Primary Care Provider] - Disposition Disposition: Home, Self Care
[2022-02-06] MEDS: Diphth,Pertuss(Acell),Tet Vac 0.5 ML Vial IM (18:40)
== END 2022-02-06 18:52 | disposition home or self-care (01) ==
LOC: ED 18:41
PROVIDERS: Emergency Provider Student in an Organized Health Care Education/Training Program; PCP Family Medicine; Visit Provider Student in an Organized Health Care Education/Training Program
DX: S51.802A Unspecified open wound of left forearm, initial encounter (principal); S61.412A Laceration without foreign body of left hand, initial encounter; Z87.891 Personal history of nicotine dependence; S61.512A Laceration without foreign body of left wrist, initial encounter; S51.801A Unspecified open wound of right forearm, initial encounter; W18.09XA Striking against other object with subsequent fall, initial encounter
CPT/HCPCS: 90715; 99283

== ENCOUNTER 2022-12-30 16:01 | Inpatient (IN) | payer OTHER, SELFPAY ==
[2022-12-30] VITALS (8 sets, daily range): BP systolic 121–156; BP diastolic 47–67; PULSE 76–98; RESP 16–20; TEMP 36.1–36.7; O2SAT 88–99; BMI 30.7; BMI 29.2
--- NOTE | 2022-12-30 16:21 | CT_ITS ---
INDICATION: weakness EXAMINATION: CT BRAIN - CT Head or Brain W/O Contrast Injection TECHNIQUE: Multiple axial images were obtained of the head without intravenous contrast. A radiation dose optimization technique was used for this scan. IV Contrast dosage and agent: None. COMPARISON: None. FINDINGS: BRAIN PARENCHYMA: No intra- or extra-axial hemorrhage. No acute territorial infarction. Small focus of encephalomalacic area right occipital lobe consistent with chronic CVA. No intracranial mass or mass effect. Posterior fossa structures are unremarkable. Volume loss with low attenuation of the periventricular white matter typical of chronic small vessel disease. CSF SPACES: Appropriate for age. No hydrocephalus. Basal cisterns are patent. CALVARIUM, SKULL BASE, PARANASAL SINUSES AND MASTOID AIR CELLS: Clear. No discrete lytic or blastic abnormalities. CT/Brain/Head without Contrast IMPRESSION: Volume loss with chronic white matter changes. No acute intracranial findings. Electronically Signed: Vignesh Herrmann MD at 17:26 EDT ,
--- NOTE | 2022-12-30 16:22 | EX.ED.DYSGE1 ---
HPI History of Present Illness Chief Complaint: Weakness Informant: patient Narrative Narrative: Presents with generalized weakness. Patient states last few days he has been too weak to get up and move around his house. He does live at home with his . He has been having burning with urination for probably 3 days to a week. For the last 3 or 4 days he has been having more coughing and a little bit more sputum production. He does have COPD but is not on oxygen. He denies known fevers or chills. He states his appetite is down but he has not had nausea vomiting or abdominal pain. No rashes. His biggest complaints are generalized weakness and burning with urination. PFSH PFSH Home Medications gabapentin 400 mg capsule 400 mg PO TID NERVE PAIN 08/20/18 [History Last Taken 08/20/18] glipizide 5 mg tablet 5 mg PO DAILY DM 08/20/18 [History Last Taken 08/20/18] sertraline 50 mg tablet 50 mg PO DAILY DEPRESSION 08/20/18 [History Last Taken 08/20/18] aspirin 81 mg tablet,delayed release 81 mg PO DAILY@0800 08/21/18 [Rx Last Taken Unknown] atorvastatin 40 mg tablet 40 mg PO QHS 08/21/18 [Rx Last Taken Unknown] azithromycin 500 mg intravenous solution 500 mg IV Q24 08/21/18 [Rx Last Taken Unknown] carvedilol 3.125 mg tablet 3.125 mg PO BID 08/21/18 [Rx Last Taken Unknown] ceftriaxone 1 gram/50 mL in dextrose (iso-osmot) intravenous piggyback 1 g (50 mL) IV Q24 08/21/18 [Rx Last Taken Unknown] clopidogrel 75 mg tablet 75 mg PO DAILY 08/21/18 [Rx Last Taken Unknown] ipratropium 0.5 mg-albuterol 3 mg (2.5 mg base)/3 mL nebulization soln 3 ml inhalation Q4HWA.RT 08/21/18 [Rx Last Taken Unknown] nitroglycerin 0.4 mg sublingual tablet 0.4 mg sublingual Q5M PRN Angina pain 08/21/18 [Rx Last Taken Unknown] albuterol 90 mcg/actuation aerosol inhaler 90 mcg inhalation .4X A DAY PRN SOB 12/30/22 [History Last Taken Unknown] mometasone 200 mcg/actuation HFA aerosol inhaler (Asmanex HFA) 2 puff inhalation BID 12/30/22 [History Last Taken Unknown] rosuvastatin 40 mg tablet (Crestor) 40 mg PO QHS 12/30/22 [History Last Taken Unknown] tiotropium 2.5 mcg-olodaterol 2.5 mcg/actuation mist for inhalation (Stiolto Respimat) 2 inh inhalation DAILY 12/30/22 [History Last Taken Unknown] Allergy/AdvReac Type Severity Reaction Status Date / Time No Known Allergies Allergy Verified 12/30/22 16:03 Social History Smoking Status: Former smoker ROS ROS ED ROS Narrative A complete review of systems was performed and is negative except as documented in the history of present illness. Some specific details below. Constitutional: No recent fevers or chills. He does have malaise and generalized weakness EYE: No visual complaints or pain. ENT: No difficulty swallowing. No swelling. No pain. CV: No chest pain or palpitations. Respiratory: He has more coughing and slight sputum production that is clear to white. More wheezing. GI: No nausea vomiting diarrhea or pain. Appetite is down. : He has both frequency and dysuria. No hematuria. Musculoskeletal: No recent trauma. No pains. Skin: No rash. Nondiaphoretic. Neuro: No focal weakness or numbness. Endocrine: No polydipsia. He does feel thirsty and like he is not drinking enough but that is because his appetite has been down. EXAM Physical Exam Narrative Exam Narrative: CONSTITUTIONAL: Patient is nontoxic in appearance. But the patient does look worn out and tired. HEENT: No notable trauma. Mucous membranes do look rather dry. No sinus tenderness. No indication of pain with swallowing. EYES: No conjunctival injection. CARDIOVASCULAR: Regular rate. Regular rhythm. No notable murmur. No JVD. No prior median sternotomy scar. RESPIRATORY: No respiratory distress. Breathing is unlabored. Saturations were 88% on room air. This is hypoxic. Sats improved to mid to low 90s on 2 L. He does have expiratory wheezing throughout. A few coarse breath sounds. No rales. GASTROINTESTINAL: Not distended. Bowel sounds are normal. No tenderness. No guarding. No rebound. No palpable mass. No bruit. GENITOURINARY: No tenderness over the bladder. No CVA tenderness. MUSCULOSKELETAL: Atraumatic. Mild peripheral edema. No cord. No tenderness along the deep venous system. No asymmetry. NEUROLOGICAL: Patient is alert and appropriate. No focal deficit noted. He does seem tired. He is initially sleeping when I walk in the room. But then he wakes up and is a good informant. SKIN: No noted rashes. No diaphoresis. PSYCHIATRIC: Patient is calm. Mood is appropriate. Const Vital Signs: 12/30/22 16:03 12/30/22 16:08 12/30/22 16:09 Temperature 97.8 F Temperature Source Oral Pulse Rate 83 Respiratory Rate 20 H Respiratory Effort Short of Breath Respiratory Pattern Blood Pressure 131/47 H Blood Pressure Mean 75 Pulse Ox 89 88 Oxygen Delivery Method Room Air Room Air Oxygen Flow Rate (L/min) 12/30/22 16:12 12/30/22 16:37 Temperature Temperature Source Pulse Rate 80 Respiratory Rate 18 Respiratory Effort Respiratory Pattern Normal Blood Pressure Blood Pressure Mean Pulse Ox 94 Oxygen Delivery Method Nasal Cannula Oxygen Flow Rate (L/min) 2 MDM MDM MDM Narrative Medical decision making narrative: Management interpretation the patient's single view chest x-ray shows no sign of acute infiltrative process. Final reading is similar. My independent her potation's CT of the head without contrast shows no sign of bleeding. There is atrophy. Patient's white count is slightly elevated at 12.9. Hemoglobin is slightly low at 11. Platelets are normal. Patient's electrolytes do show high potassium and an acute kidney injury with high BUN and creatinine. This is much higher than 2019 and I believe that this is likely acute based on his symptoms and decreased p.o. intake. Lactic acid is normal at 0.6. Patient's now tells me he has been having some frequent small urination. Although I do not feel an enlarged bladder he had pressure. For this reason a Gonzalez catheter was placed. Initially very purulent looking urine came out. He does feel much better. He is passing good amount of urine. I will give him a dose of IV antibiotics. We are pending final urinalysis. But with this patient's overall weakness, acute kidney injury dehydration inability to ambulate he will need to come in the hospital. I gave him breathing treatment here and his lungs sound good now. He is not wheezing. I do not think he is having a major COPD exacerbation I think he just needed a breathing treatment. Does have longstanding COPD. I have hospitalist on page. Lab Data Attestation: I reviewed the patient's lab results. Labs: Laboratory Results - last 24 hr 12/30/22 12/30/22 12/30/22 16:10 16:33 17:25 WBC 12.9 H RBC 3.83 L Hgb 11.0 L Hct 34.7 L MCV 90.6 MCH 28.7 MCHC 31.7 L RDW Std Deviation 60.6 H RDW Coeff of Audi 18.2 H Plt Count 205 MPV 9.5 Immature Gran % (Auto) 0.700 Neut % (Auto) 90.8 H Lymph % (Auto) 3.7 L [place] % (Auto) 4.3 Eos % (Auto) 0.2 Baso % (Auto) 0.3 Absolute Neuts (auto) 11.7 H Absolute Lymphs (auto) 0.48 L Nucleated RBC % 0 Differential Comment SCANNED Sodium 138 Potassium 6.1 H* Chloride 113 H Carbon Dioxide 16.0 L Anion Gap 9 BUN 113 H* Creatinine 7.40 H Estim Creat Clear Calc 7.50 Est GFR (MDRD) Af Amer 9 L Est GFR (MDRD) Non-Af 8 L BUN/Creatinine Ratio 15.3 Glucose 74 Lactic Acid 0.6 Calcium 8.5 Urine Color Yellow Urine Clarity Sl. Cloudy Urine pH 5.0 Ur Specific [place] 1.015 Urine Protein 30 H Urine Glucose (UA) Normal Urine Ketones Negative Urine Occult Blood 150 H Urine Nitrite Negative Urine Bilirubin Negative Urine Urobilinogen Normal Ur Leukocyte Esterase 500 H Radiography Diagnostic Testing: Clinical Impression(s) from Imaging Studies Brain CT 12/30/22 16:21 IMPRESSION: Volume loss with chronic white matter changes. No acute intracranial findings. Electronically Signed: Vignesh Herrmann MD at 17:26 EDT Reading Location ID and State: [facility] / [place] Tel , Service support , Chest X-Ray 12/30/22 16:54 IMPRESSION: No radiographic evidence of acute cardiopulmonary disease. Electronically Signed: Vignesh Herrmann MD at 17:19 EDT Reading Location ID and State: [facility] / [place] Tel , Service support , EKG Initial EKG: Comments: My independent interpretation of the patient's EKG shows a normal sinus rhythm with overall rate of 76. There is left bundle branch block. Secondary changes related to this but no sign of acute ST elevation or depression. KS interval is borderline. QRS duration and QTc are long. But this EKG is similar to 21 August 2018 Discharge Plan Triage Chief Complaint: Weakness Other Complaint: Complaint ED Provider: Brenton Gaines Dx/Rx/DC Orders Clinical Impression: Acute kidney injury, Acute urinary obstruction, Unable to walk, Dehydration, Acute hyperkalemia Prescriptions: No Action gabapentin 400 MG capsule 400 mg PO TID sertraline 50 MG tablet 50 mg PO DAILY glipizide 5 MG tablet 5 mg PO DAILY atorvastatin 40 MG tablet 40 mg PO QHS 0RF ipratropium-albuterol 3 ML solution for nebulization 3 ml inhalation Q4HWA.RT 0RF clopidogrel 75 MG tablet 75 mg PO DAILY 0RF aspirin 81 MG tablet 81 mg PO DAILY@0800 0RF carvedilol 3.125 MG tablet 3.125 mg PO BID 0RF azithromycin 500 MG/5 ML recon soln 500 mg IV Q24 0RF nitroglycerin 0.4 MG tablet 0.4 mg sublingual Q5M PRN (Reason: Angina pain) 0RF ceftriaxone in dextrose,iso-os 1 GM/50 ML piggyback 1 g IV Q24 0RF Asmanex HFA 200 mcg/actuation HFA aerosol inhaler 2 puff inhalation BID Stiolto Respimat 2.5-2.5 mcg/actuation mist 2 inh inhalation DAILY rosuvastatin [Crestor] 40 mg tablet 40 mg PO QHS albuterol 90 mcg/actuation aerosol 90 mcg inhalation .4X A DAY PRN (Reason: SOB) Primary Care Provider: Mich Rosales Referrals: Mich Rosales MD [Primary Care Provider] - Disposition Disposition: [facility]
[2022-12-30 16:35] LABS: Absolute Lymphocyte Count 0.48 X10^3/uL (0.83-4.51); Absolute Neutrophil Count 11.7 X10^3/uL (2.0-7.7); Basophil# 0.04 X10^3/uL; Basophil% 0.3 % (0-1); Eosinophil# 0.03 X10^3/uL; Eosinophils% 0.2 % (0-5); Hematocrit 34.7 % (40-54); Lymphocyte # 0.48 X10^3/ul (0.83-4.51); Lymphocyte % 3.7 % (19-41); Mean Corp Hgb Conc 31.7 g/dL (32-36); Mean Corpuscular Hgb 28.7 pg (27.0-32.0); Mean Corpuscular Volume 90.6 fL (80-94); Mean Platelet Vol. 9.5 fl (6.2-12.0); Monocyte# 0.55 X10^3/uL; Monocyte% 4.3 % (0-10); NRBC Flagged by Analyzer 0 % (0-5); Neutrophil # 11.73 X10^3/uL (2.7-7.7); Neutrophil % 90.8 % (47-70); POSITIVE DIFFERENTIAL YES; Platelet Count 205 K/mm3 (150-450); RBC Distribution Width CV 18.2 % (11.6-14.6); RBC Distribution Width SD 60.6 fl (35.1-43.9); Red Blood Count 3.83 M/mm3 (4.6-6.2); White Blood Count 12.9 K/mm3 (4.4-11.0)
[2022-12-30] MEDS: Ipratropium/Albuterol Sulfate 3 ML AMPUL.NEB INHALATION (16:37)
[2022-12-30 16:39] LABS: Differential Indicated SCAN CRITERIA MET
--- NOTE | 2022-12-30 16:54 | RAD_ITS ---
INDICATION: SOB EXAMINATION/TECHNIQUE: X-RAY - portable upright AP chest x-ray COMPARISON: 08/21/2018 FINDINGS: LINES/DEVICES: None. LUNGS: No consolidation, edema or effusion. No pneumothorax. MEDIASTINUM AND CARDIOVASCULAR STRUCTURES: Cardiac silhouette not enlarged. Stable median sternotomy changes. BONES AND SOFT TISSUES: No acute changes. RAD/Chest 1 View (Portable) IMPRESSION: No radiographic evidence of acute cardiopulmonary disease. Electronically Signed: Vignesh Herrmann MD at 17:19 EDT ,
[2022-12-30 17:00] LABS: Anion Gap 9 (5-15); BUN 113 mg/dL (7-18); BUN/Creat Ratio 15.3 RATIO (10-20); Calcium,Total 8.5 mg/dL (8.5-10.1); Chloride 113 mmol/L (98-107); EST Glomerular Filtration Rate 8 mL/min (>60); Est Glom Filt Rate - Afr Amer 9 mL/min (>60); Glucose 74 mg/dL (74-106); Potassium 6.1 mmol/L (3.5-5.1); Sodium Level 138 mmol/L (136-145)
[2022-12-30 17:12] LABS: Lactic Acid 0.6 mmol/L (0.4-1.9)
[2022-12-30 17:15] LABS: Differential Comment SCANNED
[2022-12-30] MEDS: 0.9% Normal Saline 1,000 ML 999 ML IV (17:24)
[2022-12-30 17:55] LABS: Mucous, Urine 0 SEEN /hpf (<or=2+); Red Blood Cells-Urine 0 SEEN /hpf (0-5)
[2022-12-30 17:57] LABS: Color, Urine Yellow (Yellow); Glucose, Dipstick Normal (Normal); Ketone-Dipstick Negative (Negative); Leukocyte Esterase-Dipstick 500 /ul (Negative); Nitrite-Dipstick Negative (Negative); Occult Blood-Urine 150 /ul (Negative); Protein-Dipstick 30 mg/dl (Negative); Specific Gravity, Urine 1.015 (1.002-1.030); Urine Bilirubin Dipstick Negative (Negative); Urine Clarity Sl. Cloudy (Clear); Urine Urobilinogen Normal (Normal)
--- NOTE | 2022-12-30 18:04 | HP.PCM.HOS_ITS ---
HPI - General General Date of Admission: 12/30/22 Date of Service: 12/30/22 Chief Complaint: JOHN, debility HPI Narrative JONAH ALEXANDRA is a 77 M with history of CAD s/p CABG x1, type 2 diabetes, CKD, hypertension, COPD not on home O2 and depression who presented to [facility] ED on 12/30/22 with generalized weakness. Patient seen at bedside, no family present. Patient lying comfortably in bed, appears quite fatigued. Has slightly delayed responses but is answering all questions appropriately. Patient states that he has felt quite fatigued at home over the last few weeks. Has not been able to do much for himself around the house. Lives with his at home, however she is quite chronically ill and has been in and out of the hospital several times in the last few months. Patient denies any fevers or chills. He reports generalized aches and pains, but no specific areas of pain or discomfort. He denies any suprapubic pain. He reports urinary frequency but this has been present for him for some time. Denies any dysuria. No other acute concerns at this time Labs in the ED were notable for WBC count of 12.9, hemoglobin 11.0, sodium 138, potassium 6.1, creatinine 7.40, BUN 113. UA showed 30 protein, positive leukocyte esterase, negative nitrates, 50-100 white blood cells, 1+ bacteria. Chest x-ray and CT head were nonacute. [facility] Home Medications gabapentin 400 mg capsule 400 mg PO TID NERVE PAIN 08/20/18 [History Last Taken 08/20/18] glipizide 5 mg tablet 5 mg PO .BEFORE MEALS DM 08/20/18 [History Last Taken 08/20/18] sertraline 50 mg tablet 100 mg PO DAILY DEPRESSION 08/20/18 [History Last Taken 08/20/18] carvedilol 3.125 mg tablet 3.125 mg PO BID 08/21/18 [Rx Last Taken Unknown] ceftriaxone 1 gram/50 mL in dextrose (iso-osmot) intravenous piggyback 1 g (50 mL) IV Q24 08/21/18 [Rx Last Taken Unknown] clopidogrel 75 mg tablet 75 mg PO DAILY 08/21/18 [Rx Last Taken Unknown] albuterol 90 mcg/actuation aerosol inhaler 90 mcg inhalation .4X A DAY PRN SOB 12/30/22 [History Last Taken Unknown] amlodipine 10 mg tablet 10 mg PO DAILY 12/30/22 [History Last Taken Unknown] cholecalciferol (vitamin D3) 25 mcg (1,000 unit) capsule 75 mcg PO DAILY 12/30/22 [History Last Taken Unknown] cyanocobalamin (vitamin B-12) 1,000 mcg capsule 1,000 mcg PO DAILY 12/30/22 [History Last Taken Unknown] hydrocodone-acetaminophen 5-325mg 5mg-325mg 1 tab PO TID 12/30/22 [History Last Taken Unknown] insulin glargine 100 unit/mL subcutaneous solution 50 unit subcut QHS 12/30/22 [History Last Taken Unknown] metformin 500 mg 24 hr tablet,extended release (Glumetza) 500 mg PO BID 12/30/22 [History Last Taken Unknown] mometasone 200 mcg/actuation HFA aerosol inhaler (Asmanex HFA) 2 puff inhalation BID 12/30/22 [History Last Taken Unknown] rosuvastatin 40 mg tablet (Crestor) 40 mg PO QHS 12/30/22 [History Last Taken Unknown] tiotropium 2.5 mcg-olodaterol 2.5 mcg/actuation mist for inhalation (Stiolto Respimat) 2 inh inhalation DAILY 12/30/22 [History Last Taken Unknown] Allergy/AdvReac Type Severity Reaction Status Date / Time No Known Allergies Allergy Verified 12/30/22 19:34 Social History Smoking Status: Former smoker ROS Constitutional Constitutional: Reports fatigue and weakness; Denies chills or fever(s) Eyes Eyes: Denies change in vision Cardiovascular Cardiovascular: Denies chest pain, dyspnea on exertion or lightheadedness Respiratory/Chest Respiratory/Chest: Denies cough Gastrointestinal Gastrointestinal: Denies abdominal pain Genitourinary Genitourinary: Reports nocturia and urinary frequency; Denies dysuria or urinary urgency Musculoskeletal Musculoskeletal: Reports arthralgias and myalgias Vital Signs Vital Signs Vital Signs: 12/30/22 16:03 12/30/22 16:08 12/30/22 16:09 Temperature 97.8 F Temperature Source Oral Pulse Rate 83 Respiratory Rate 20 H Respiratory Effort Short of Breath Respiratory Pattern Blood Pressure 131/47 H Blood Pressure Mean 75 Pulse Ox 89 88 Oxygen Delivery Method Room Air Room Air Oxygen Flow Rate (L/min) 12/30/22 16:12 12/30/22 16:37 Temperature Temperature Source Pulse Rate 80 Respiratory Rate 18 Respiratory Effort Respiratory Pattern Normal Blood Pressure Blood Pressure Mean Pulse Ox 94 Oxygen Delivery Method Nasal Cannula Oxygen Flow Rate (L/min) 2 Weight Weight: 83.6 kg Body Mass Index (BMI) 30.7 Physical Exam Const alert Constitutional Narrative: Obese male, lying comfortably in bed, slowed responses but answering all questions appropriately, no acute distress. General Appearance: cooperative and comfortable HEENT normocephalic, head/scalp atraumatic, hearing grossly normal bilaterally, nasal mucous membranes and turbinates normal and moist oral mucous membranes Eyes PERRL, EOMs intact bilaterally and conjunctivae normal Neck full ROM, no lymphadenopathy and supple Lymph Lymphatic: no lymphadenopathy noted Chest inspection of chest normal Resp normal respiratory effort, normal air movement, no use of accessory muscles and clear to auscultation bilaterally Cardio regular rate, regular rhythm, no murmurs and peripheral pulses 2+ throughout GI normal to inspection, nondistended, normoactive bowel sounds, soft to palpation, non-tender and non-distended GI Narrative: No suprapubic tenderness noted. Back/Spine normal ROM Extremity normal to inspection, full ROM and no pedal edema Skin no rashes or lesions noted Psych mental status grossly normal Results Lab / Micro Data 12/30/22 16:10 12/30/22 16:10 Labs: Laboratory Results - last 24 hr 12/30/22 16:10: WBC 12.9 H, RBC 3.83 L, Hgb 11.0 L, Hct 34.7 L, MCV 90.6, MCH 28.7, MCHC 31.7 L, RDW Std Deviation 60.6 H, RDW Coeff of Audi 18.2 H, Plt Count 205, MPV 9.5, Immature Gran % (Auto) 0.700, Neut % (Auto) 90.8 H, Lymph % (Auto) 3.7 L, [place] % (Auto) 4.3, Eos % (Auto) 0.2, Baso % (Auto) 0.3, Absolute Neuts (auto) 11.7 H, Absolute Lymphs (auto) 0.48 L, Nucleated RBC % 0, Differential Comment SCANNED, Sodium 138, Potassium 6.1 H*, Chloride 113 H, Carbon Dioxide 16.0 L, Anion Gap 9, BUN 113 H*, Creatinine 7.40 H, Estim Creat Clear Calc 7.50, Est GFR (MDRD) Af Amer 9 L, Est GFR (MDRD) Non-Af 8 L, BUN/Creatinine Ratio 15.3, Glucose 74, Calcium 8.5 12/30/22 16:33: Lactic Acid 0.6 12/30/22 17:25: Urine Color Yellow, Urine Clarity Sl. Cloudy, Urine pH 5.0, Ur Specific [place] 1.015, Urine Protein 30 H, Urine Glucose (UA) Normal, Urine Ketones Negative, Urine Occult Blood 150 H, Urine Nitrite Negative, Urine Bilirubin Negative, Urine Urobilinogen Normal, Ur Leukocyte Esterase 500 H Radiology Impression Brain CT 12/30/22 16:21 IMPRESSION: Volume loss with chronic white matter changes. No acute intracranial findings. Electronically Signed: Vignesh Herrmann MD at 17:26 EDT Reading Location ID and State: [facility] / [place] Tel , Service support , Chest X-Ray 12/30/22 16:54 IMPRESSION: No radiographic evidence of acute cardiopulmonary disease. Electronically Signed: Vignesh Herrmann MD at 17:19 EDT , Assessment & Plan Assessment/Plan (1) Acute kidney injury: PLAN: Plan Patient is a 77-year-old male with history of CAD s/p CABG x1, type 2 diabetes, CKD, hypertension, COPD not on home O2 and depression who presented to [facility] ED on 12/30/22 with generalized weakness. 1. Severe JOHN on CKD Suspect multifactorial with prerenal component given very poor p.o. intake at home along with obstructive etiology as noted below. Creatinine 7.40 on admission, last known baseline of 1.6-1.8 in 2019. Gonzalez placed on admission as noted below, with good urine output. CKD presumed secondary to diabetes and hypertension. ?Nephrology consulted, appreciate recs. No acute needs for dialysis at this time. Monitor BMP and urine output. Urine sodium and creatinine ordered. Renal and bladder ultrasound ordered. Continue Gonzalez for now. Avoid nephrotoxins. Continue maintenance IV fluids through tomorrow morning, reassess BMP and volume status then; if patient has component of ATN, do not want to cause overt volume overload. 2. Urinary retention No noted history. Suspect this may be due to BPH. Patient notes that he has still been able to go to the bathroom at home, albeit small amounts. -Continue Gonzalez for now. Will likely need voiding trial prior to discharge. Can consider starting Flomax while inpatient. 3. Generalized weakness Likely acute on chronic weakness. Patient lives at home with his , who is also chronically ill and has had several hospitalizations recently. Patient states has not been able to do much around the house for the last few weeks. Unclear what his baseline functional status is. -PT/OT/case management consulted. 4. Concern for UTI ? UA on admit showed 500 leukocyte esterase, negative nitrates, 50-100 white blood cells, 1+ bacteria. Given 1 dose of IV ceftriaxone in the ED. Patient reports urinary frequency but denies any dysuria. Urine culture pending. Will treat empirically with ceftriaxone for now, narrow as able. 5. Hyperkalemia ? Secondary to JOHN as above. K 6.1 on admit. No EKG changes noted. Treated with IV fluids in the ED. Monitor BMP, treat medically as needed. 6. CAD s/p CABG x1 ? Continue home aspirin, Plavix and statin. 7. Type 2 diabetes ? Home medications of glipizide and metformin. Sliding scale insulin while in patient. 8. Depression ? Stable. Continue home sertraline. 9. COPD ? Does not require oxygen at home. Continue home inhalers. 10. Anemia ? Chronic, suspect due to CKD. Hemoglobin 11.0 on admit, baseline from 2019 was around 10-11. Iron studies ordered. DVT prophylaxis: Heparin subcu CODE STATUS: Full code, unverified Expected disposition: TBD Total clinical time spent by myself addressing the patient's medical issues, reviewing all the data, and collaborating with patient's care team: 55 minutes. Charges/Coding Visit Charges Inpatient E&M: 47043 Init Hosp L2
[2022-12-30 18:05] LABS: Bacteria 1+ /hpf (None Seen); Squamous Epithelial Cells - UA 0-5 SEEN /hpf (0-5); White Blood Cells 50-100 SEEN /hpf (0-5)
[2022-12-30] MEDS: Ceftriaxone 1 GM/50 ML BAG IV (18:16)
--- NOTE | 2022-12-30 18:21 | NURSING ---
MED SURG MARANDA JOHN, DEHYDRATION, URINARY RETENTION
--- NOTE | 2022-12-30 18:24 | US_ITS ---
INDICATION: JOHN, concern for urinary retention EXAMINATION: Ultrasound US Kidney(s) complete (eg, kidneys and bladder) TECHNIQUE: Olmos scale and color doppler images were obtained of the kidneys. COMPARISON: None. FINDINGS: RIGHT KIDNEY: 10.8 x 6.4 x 6.3 cm. There is no hydronephrosis. No shadowing calculus, focal lesion or perinephric collection is demonstrated. LEFT KIDNEY: 11.7 x 6.6 x 5.0 cm. There is no hydronephrosis. No shadowing calculus, focal lesion or perinephric collection is demonstrated. URINARY BLADDER: Drained by Gonzalez catheter. US/Kidney and Bladder IMPRESSION: Negative renal ultrasound. Electronically Signed: Vignesh Herrmann MD at 19:26 EDT ,
--- NOTE | 2022-12-30 18:35 | NURSING ---
CALLED [facility] AND GAVE THEM PATIENTS INFO AND DIAGNOSES. THEY SAID WE CAN ADMIT FOR THE TIME BEING AND SOMEONE WILL BE CALLING LATER TO GET UPDATE.
[2022-12-30 18:58] LABS: Ferritin 93 ng/mL (26-388); Iron 22 ug/dL (65-175); Iron Binding Capacity,Total 233 ug/dL (250-450); PERCENT IRON SATURATION 9.4 % (15.0-55.0)
--- NOTE | 2022-12-30 19:00 | NURSING ---
[facility] CALLED AND ASKED FOR THE CHART AND I FAXED IT TO [phone]
[2022-12-30 21:09] LABS: Bedside Glucose 106 mg/dL (74-106)
[2022-12-30] MEDS: Lactated Ringers 1,000 ML 100 ML IV (21:27)
[2022-12-30 21:44] LABS: Protein, Urine (Random) 84.5 mg/dL (<11.9); Protein:Creat Ratio 1394 mg/g CRE (0-200); Urine Sodium 65 mmol/L (Not Establ.)
[2022-12-30] MEDS: Gabapentin 100 MG Capsule 200 MG PO (23:08)
[2022-12-30] MEDS: Atorvastatin Calcium 80 MG Tablet PO (23:08)
[2022-12-30] MEDS: Carvedilol 3.125 MG TABLET PO (23:08)
[2022-12-30] MEDS: HYDROcodone Bitartrate/Apap 5/325 Tablet PO (23:09)
[2022-12-30] MEDS: 0.9% Saline Lock 10 ML Syringe IV (23:20)
[2022-12-30 23:41] LABS: Bedside Glucose 81 mg/dL (74-106)
[2022-12-31] VITALS (21 sets, daily range): BP systolic 91–151; BP diastolic 47–97; PULSE 71–119; RESP 15–24; TEMP 35.8–36.6; O2SAT 91–100; BMI 29.6
[2022-12-31 01:07] LABS: Bedside Glucose 122 mg/dL (74-106)
--- NOTE | 2022-12-31 01:46 | EKG12_ITS ---
Test Reason : Blood Pressure : / mmHG Vent. Rate : 109 BPM Atrial Rate : 109 BPM P-R Int : 156 ms QRS Dur : 144 ms QT Int : 388 ms P-R-T Axes : 014 076 -87 degrees QTc Int : 522 ms Sinus tachycardia Left bundle branch block Abnormal ECG When compared with ECG of 30-DEC-2022 16:40, MANUAL COMPARISON REQUIRED, DATA IS UNCONFIRMED Confirmed by DAX LAW, LIS ([id number]), make up editor DULCE SANDOVAL ([id number]) on 02/14/2023 1:48:21 PM Referred By: Markie Confirmed By:LIS VERDUZCO MD
[2022-12-31] MEDS: Albuterol 2.5 MG/3 ML VIAL.NEB. INHALATION ×2 (01:50→06:44)
[2022-12-31] MEDS: 0.9% Normal Saline 1,000 ML 100 ML IV ×2 (02:12→14:45)
[2022-12-31] MEDS: 0.9% Saline Lock 10 ML Syringe IV ×3 (02:13→16:08)
[2022-12-31 03:05] LABS: Bedside Glucose 124 mg/dL (74-106)
--- NOTE | 2022-12-31 03:17 | PCM.HOSP.N ---
Hospitalist Note This patient was complaining of cough with sputum production and now is requiring oxygen. He did have a leukocytosis on presentation. Check COVID swab, respiratory viral panel, sputum culture. Start ceftriaxone 2 g daily and azithromycin.
[2022-12-31 06:08] LABS: Hematocrit 36.3 % (40-54); Hemoglobin 11.3 g/dL (13.0-16.5); Mean Corp Hgb Conc 31.1 g/dL (32-36); Mean Corpuscular Hgb 28.3 pg (27.0-32.0); Mean Platelet Vol. 10.2 fl (6.2-12.0); Platelet Count 224 K/mm3 (150-450); RBC Distribution Width CV 18.2 % (11.6-14.6); Red Blood Count 3.99 M/mm3 (4.6-6.2); White Blood Count 15.4 K/mm3 (4.4-11.0)
[2022-12-31] MEDS: Budesonide Respules 0.5 MG/2 ML AMPUL.NEB. INHALATION ×2 (06:44→19:03)
[2022-12-31] MEDS: HYDROcodone Bitartrate/Apap 5/325 Tablet PO ×2 (06:58→21:09)
[2022-12-31] MEDS: Insulin Lispro 100 UNIT/ML INSULN.PEN SC (06:59)
[2022-12-31 07:24] LABS: Bedside Glucose 152 mg/dL (74-106)
[2022-12-31 07:28] LABS: Anion Gap 10 (5-15); BUN 119 mg/dL (7-18); BUN/Creat Ratio 16.9 RATIO (10-20); Calcium,Total 8.7 mg/dL (8.5-10.1); Chloride 111 mmol/L (98-107); Creatinine, Serum 7.04 mg/dL (0.70-1.30); EST Glomerular Filtration Rate 8 mL/min (>60); Est Glom Filt Rate - Afr Amer 10 mL/min (>60); Estimated Creatinine Clearance 7.89 ml/min; Glucose 119 mg/dL (74-106); Potassium 7.4 mmol/L (3.5-5.1); Sodium Level 139 mmol/L (136-145)
--- NOTE | 2022-12-31 07:31 | PN.HOSP_ITS ---
Reason for Visit Reason for Visit: Diagnoses Acute kidney failure, unspecified (12/30/22) Subjective Subjective Patient is a 77-year-old male with past medical history significant for chronic kidney disease stage III, coronary artery disease with previous CABG diabetes mellitus type 2 presented with increased generalized weakness. Patient creat inine on admission was 7.40 with potassium of 6.1 admitted to a monitored bed for subsequent management Objective Data Objective Data Vital Signs: Vital Signs Temp Pulse Resp BP Pulse Ox O2 Del Method O2 Flow Rate 97.8 F 88 20 H 125/54 H 98 Nasal Cannula 3 12/31/22 04:55 12/31/22 04:55 12/31/22 04:55 12/31/22 04:55 12/31/22 04:55 12/31/22 07:10 12/31/22 07:10 Oxygen Flow Rate (L/min) 3 Oxygen Delivery Method Nasal Cannula Weight: 79.878 kg Body Mass Index (BMI) 29.2 Intake & Output: Intake and Output for Last 24 Hours 12/29/22 12/30/22 12/31/22 23:59 23:59 23:59 Intake Total 1050 / 1305 770 / 770 Output Total 750 / 750 375 / 375 Balance 300 / 555 395 / 395 Lab / Micro Data 12/31/22 05:10 12/31/22 05:10 Labs: Laboratory Results - last 24 hr 12/30/22 16:10: WBC 12.9 H, RBC 3.83 L, Hgb 11.0 L, Hct 34.7 L, MCV 90.6, MCH 28.7, MCHC 31.7 L, RDW Std Deviation 60.6 H, RDW Coeff of Audi 18.2 H, Plt Count 205, MPV 9.5, Immature Gran % (Auto) 0.700, Neut % (Auto) 90.8 H, Lymph % (Auto) 3.7 L, [place] % (Auto) 4.3, Eos % (Auto) 0.2, Baso % (Auto) 0.3, Absolute Neuts (auto) 11.7 H, Absolute Lymphs (auto) 0.48 L, Nucleated RBC % 0, Differential Comment SCANNED, Sodium 138, Potassium 6.1 H*, Chloride 113 H, Carbon Dioxide 16.0 L, Anion Gap 9, BUN 113 H*, Creatinine 7.40 H, Estim Creat Clear Calc 7.50, Est GFR (MDRD) Af Amer 9 L, Est GFR (MDRD) Non-Af 8 L, BUN/Creatinine Ratio 15.3, Glucose 74, Calcium 8.5, Iron 22 L, TIBC 233 L, Iron Saturation 9.4 L, Ferritin 93 12/30/22 16:33: Lactic Acid 0.6 12/30/22 17:25: Urine Color Yellow, Urine Clarity Sl. Cloudy, Urine pH 5.0, Ur Specific [place] 1.015, Urine Protein 30 H, Urine Glucose (UA) Normal, Urine Ketones Negative, Urine Occult Blood 150 H, Urine Nitrite Negative, Urine Bilirubin Negative, Urine Urobilinogen Normal, Ur Leukocyte Esterase 500 H, Urine RBC 0 SEEN, Urine WBC 50-100 SEEN, Ur Squamous Epith Cells 0-5 SEEN, Urine Bacteria 1+, Urine Mucus 0 SEEN 12/30/22 18:25: U Random Total Protein 84.5 H, Ur Random Sodium 65, Urine Creatinine 60.60, Protein/Creatinin Ratio 1394 H 12/30/22 20:50: POC Glucose 106 12/30/22 23:07: POC Glucose 81 12/31/22 00:46: POC Glucose 122 H 12/31/22 02:44: POC Glucose 124 H 12/31/22 05:10: WBC 15.4 H, RBC 3.99 L, Hgb 11.3 L, Hct 36.3 L, MCV 91.0, MCH 28.3, MCHC 31.1 L, RDW Std Deviation 61.0 H, RDW Coeff of Audi 18.2 H, Plt Count 224, MPV 10.2, Sodium 139, Potassium 7.4 H*, Chloride 111 H, Carbon Dioxide 18.0 L, Anion Gap 10, BUN 119 H*, Creatinine 7.04 H, Estim Creat Clear Calc 7.89, Est GFR (MDRD) Af Amer 10 L, Est GFR (MDRD) Non-Af 8 L, BUN/Creatinine Ratio 16.9, Glucose 119 H, Calcium 8.7 12/31/22 06:56: POC Glucose 152 H Micro: Microbiology 12/31/22 03:40 Mucosa - Nose Respiratory Panel (PCR) - Final 12/31/22 04:30 Urine Catheter - Catheter Legionella Antigen - Final 12/31/22 04:30 Urine Catheter - Catheter Streptococcus pneumoniae Antigen (M - Final 12/31/22 03:00 Nasal Secretion SARS-CoV-2 Antigen (Rapid) - Final Radiography Diagnostic Testing: Radiology Impression Brain CT 12/30/22 16:21 IMPRESSION: Volume loss with chronic white matter changes. No acute intracranial findings. Electronically Signed: Vignesh Herrmann MD at 17:26 EDT , Chest X-Ray 12/30/22 16:54 IMPRESSION: No radiographic evidence of acute cardiopulmonary disease. Electronically Signed: Vignesh Herrmann MD at 17:19 EDT , Renal Ultrasound 12/30/22 18:24 IMPRESSION: Negative renal ultrasound. Electronically Signed: Vignesh Herrmann MD at 19:26 EDT , Physical Exam Narrative GENERAL: cooperative HEENT: Atraumatic; normocephalic EYES; Anicteric, Normal Conjunctiva NECK; supple, normal thyroid, RESPIRATORY: Diminished to auscultation CARDIOVASCULAR: Regular S1 S2, GI: soft, normoactive bowel sounds, : No Renal angle tenderness; EXTREMITIES: No edema, no clubbing, MUSCULOSKELETAL: no muscle wasting NEURO: Awake; no lateralizing signs. SKIN: No Rash PSYCH; Flat affect Assessment & Plan Assessment/Plan (1) Acute kidney injury: PLAN: Plan Patient is a 77-year-old male with past medical history significant for chronic kidney disease stage III, coronary artery disease with previous CABG diabetes mellitus type 2 presented with increased generalized weakness. Patient creatinine on admission was 7.40 with potassium of 6.1 admitted to a monitored bed for subsequent management 1. Acute kidney injury Baseline creatinine 1.7 creatinine on admission was 7.4. Patient was initially admitted to regular nursing floor transferred to the intensive care unit with rising potassium. Case discussed with nephrology patient may need dialysis given his significant hyperkalemia 2. Hyperkalemia ? Secondary to JOHN patient transferred to intensive care unit monitored joanna nuously on telemetry Case discussed with nephrology for possible dialysis in the meantime patient did receive calcium gluconate dextrose as well as Kayexalate 3. Acute urinary retention ? Patient had a Gonzalez catheter placed. This may be attributing to patient impaired kidney function subsequently started on Flomax 4. Pneumonia - Suspected to be secondary to streptococcal pneumonia, Blood and sputum cultures sent. Patient placed on Rocephin and Zithromax and placed on oxygen titrated to keep Pulse Ox greater than 90 5. Diabetes mellitus type II -patient's oral hypoglycemics held. Placed on long acting insulin, Accu-Cheks a.c. and at bedtime and covered with sliding scale insulin 6. Hypertension - Blood pressure controlled, home medications continued with dose adjustment as needed 7. Dyslipidemia -Patient is on statin therapy, continued at home dose 8. Coronary artery disease ? With previous CABG patient is on guideline directed medical therapy 9. Depression ? Patient is on SSRI 10. COPD ? Not in exacerbation aerosol treatment as needed 11. Anemia - Secondary to chronic disorder monitoring H&H and transfuse if patient becomes symptomatic or hemoglobin falls below 7 12. Chronic kidney disease stage III ? Patient presented with JOHN management as discussed above 13. Overweight with BMI of 29.3 ? Weight loss advised 14. DVT prophylaxis ? SC heparin Critical time spent in the patient's overall evaluation,decision-making process, review of diagnostic data, adjustment of management, discussion with other providers, nursing nursing and ancillary staff involved in patient's care documentation, 80 minutes Charges/Coding Multi Select Codes Hospitalists' Procedures Procedures: 05028 Critial Care 1st Hr and 52853 Critial Care Addl 30 Min
--- NOTE | 2022-12-31 07:44 | NURSING ---
steffen house supervisor informed of orders to transfer to ICU
--- NOTE | 2022-12-31 07:47 | NURSING ---
This RN aware of ICU transfer order and informed Kelly insulation power unit tender. This RN informed patient.
--- NOTE | 2022-12-31 07:53 | NURSING ---
nephrology answering service informed of consult
--- NOTE | 2022-12-31 07:55 | NURSING ---
Primary RN informed ICU6 bed assignment
--- NOTE | 2022-12-31 08:13 | NURSING ---
Attempted to call report to RN in ICU, will call this RN back.
--- NOTE | 2022-12-31 08:34 | NURSING ---
Report given to Pauline ARAUZ at this time. Azul Mackey, patients called and informed her of move to ICU room 6.
[2022-12-31] MEDS: Insulin Lispro 10 UNIT in Syringe 0 ML 6 UNIT IV (09:22)
[2022-12-31] MEDS: Dextrose 50%-Water 25 GM/50 ML DISP.SYRIN IV (09:22)
[2022-12-31] MEDS: Calcium Gluconate 1 GM/10 ML Vial IVP (09:22)
[2022-12-31] MEDS: Aspirin E.C. 81 MG Tablet PO (09:29)
[2022-12-31] MEDS: Gabapentin 100 MG Capsule 200 MG PO (09:29)
[2022-12-31] MEDS: Clopidogrel Bisulfate 75 MG Tablet PO (09:31)
[2022-12-31] MEDS: Carvedilol 3.125 MG TABLET PO ×2 (09:31→21:09)
[2022-12-31] MEDS: Menthol/Lanolin/Calamine/Znox 113 GM Tube 1 APPLIC TOPICAL ×2 (09:31→21:10)
[2022-12-31] MEDS: Sertraline 100 MG Tablet PO (09:31)
[2022-12-31] MEDS: Albuterol 2.5 MG/3 ML VIAL.NEB. 20 MG INHALATION (09:47)
--- NOTE | 2022-12-31 10:57 | RAD_ITS ---
STUDY: X-RAY CHEST REASON FOR EXAM: Male, 77 years old. worsening lung sounds TECHNIQUE: AP COMPARISON: 12/30/2022 FINDINGS: EKG leads project over the chest. Sternal wires and mediastinal surgical clips compatible with prior CABG. Patient is rotated. No airspace consolidation. Coarsened interstitial lung markings. There is no demonstrated pleural abnormality. Normal size heart. Normal mediastinum and loco. Normal visualized pulmonary arteries. There is atherosclerotic tortuosity of the aortic arch and descending thoracic aorta. No acute bony process. There is no demonstrated abnormality of the visualized soft tissue structures of the upper abdomen. RAD/Chest 1 View (Portable) IMPRESSION: 1. Nonacute portable x-ray examination of the chest. Electronically Signed: Silvestre Poe ([place]oks), at 18:00 EDT ,
--- NOTE | 2022-12-31 10:58 | PCM.CONS.R ---
Assessment & Plan Assessment/Plan (1) Acute hyperkalemia: PLAN: In view of life-threatening, worsening and refractory hyperkalemia, we will proceed with renal replacement therapy to correct potassium level and other metabolic abnormalities. (2) Acute kidney injury: PLAN: Considering that patient had no labs that done between 2018 and now, I am not sure how acute his kidney injury is at the moment. If he had for example diabetic nephropathy him I have progressed naturally over the last 6 years and ended up having end-stage kidney disease. Patient is uremic. We will do general work-up, check sedimentation rate, immunoelectrophoresis and other markers of autoimmune conditions. HPI Consult Data Date of Consult: 12/31/22 PCP / Referring MD: HPI Narrative Reason for Consultation: Acute kidney injury, hyperkalemia. HPI Narrative: JONAH ALEXANDRA, is a 77 M who presents With failure to thrive, weakness, fatigue, poor appetite, lethargy that lasted for several weeks. He has known underlying chronic kidney disease with baseline creatinine of 1.6. Last creatinine has been checked back in 2018. Upon arrival emergency room he was found to be in kidney failure with creatinine of 7.4, bicarb of 17, potassium of 6.1. He has been placed on antibiotics, had a Gonzalez catheter placed, was treated with antibiotics, but in spite of that his potassium ended up being at 7.4 today. His mental status has deteriorated as well. [facility] Medical History Anxiety Chest pain Chronic pain COPD (chronic obstructive pulmonary disease) Diabetes DVT (deep venous thrombosis) Former smoker Hearing loss, left Hearing loss, right Hypertension Kidney disease Kidney stones Myocardial infarct Sleep apnea Home Medications gabapentin 400 mg capsule 400 mg PO TID NERVE PAIN 08/20/18 [History Last Taken 08/20/18] glipizide 5 mg tablet 5 mg PO .BEFORE MEALS DM 08/20/18 [History Last Taken 08/20/18] sertraline 50 mg tablet 100 mg PO DAILY DEPRESSION 08/20/18 [History Last Taken 08/20/18] carvedilol 3.125 mg tablet 3.125 mg PO BID 08/21/18 [Rx Last Taken Unknown] ceftriaxone 1 gram/50 mL in dextrose (iso-osmot) intravenous piggyback 1 g (50 mL) IV Q24 08/21/18 [Rx Last Taken Unknown] clopidogrel 75 mg tablet 75 mg PO DAILY 08/21/18 [Rx Last Taken Unknown] albuterol 90 mcg/actuation aerosol inhaler 90 mcg inhalation .4X A DAY PRN SOB 12/30/22 [History Last Taken Unknown] amlodipine 10 mg tablet 10 mg PO DAILY 12/30/22 [History Last Taken Unknown] cholecalciferol (vitamin D3) 25 mcg (1,000 unit) capsule 75 mcg PO DAILY 12/30/22 [History Last Taken Unknown] cyanocobalamin (vitamin B-12) 1,000 mcg capsule 1,000 mcg PO DAILY 12/30/22 [History Last Taken Unknown] hydrocodone-acetaminophen 5-325mg 5mg-325mg 1 tab PO TID 12/30/22 [History Last Taken Unknown] insulin glargine 100 unit/mL subcutaneous solution 50 unit subcut QHS 12/30/22 [History Last Taken Unknown] metformin 500 mg 24 hr tablet,extended release (Glumetza) 500 mg PO BID 12/30/22 [History Last Taken Unknown] mometasone 200 mcg/actuation HFA aerosol inhaler (Asmanex HFA) 2 puff inhalation BID 12/30/22 [History Last Taken Unknown] rosuvastatin 40 mg tablet (Crestor) 40 mg PO QHS 12/30/22 [History Last Taken Unknown] tiotropium 2.5 mcg-olodaterol 2.5 mcg/actuation mist for inhalation (Stiolto Respimat) 2 inh inhalation DAILY 12/30/22 [History Last Taken Unknown] Allergy/AdvReac Type Severity Reaction Status Date / Time No Known Allergies Allergy Verified 12/30/22 19:34 Surgical History History of coronary artery stent placement Hx of CABG Social History Smoking Status: Former smoker ROS Review of Systems ROS Unobtainable: due to encephalopathy and due to mental condition Constitutional Constitutional: Reports weakness ENT HEENT: Reports dry mouth Cardiovascular Cardiovascular: Denies chest pain, claudication, diaphoresis, dyspnea on exertion, edema, irregular heart rhythm, leg edema, orthopnea, palpitations or syncope Respiratory/Chest Respiratory/Chest: Reports dyspnea on exertion and productive cough Genitourinary Genitourinary: Denies change in urinary stream, difficulty urinating, dribbling, dysuria, flank pain, hematuria, nocturia, oliguria, post void dribbling, urinary frequency, urinary hesitancy, urinary incontinence or urinary urgency Integumentary Integumentary: Reports dry skin Physical Exam Const Constitutional Narrative: Patient answers simple questions, but has myoclonic jerks and somewhat lethargic General Appearance: well developed Orientation / Consciousness: oriented to person HEENT normocephalic Head and Scalp: atraumatic Eyes PERRL Neck no lymphadenopathy Resp Auscultation: crackles right and wheezes GI Auscultation: normoactive bowel sounds Bladder / Kidney Exam: catheter in place Skin no rashes or lesions noted Neuro Sensorium / Orientation: lethargic Psych Memory / Cognition: cognition impaired Lab / Micro Data Attestation: I reviewed the patient's lab results. 12/31/22 05:10 12/31/22 05:10 Labs: Laboratory Results - last 24 hr 12/30/22 16:10: WBC 12.9 H, RBC 3.83 L, Hgb 11.0 L, Hct 34.7 L, MCV 90.6, MCH 28.7, MCHC 31.7 L, RDW Std Deviation 60.6 H, RDW Coeff of Audi 18.2 H, Plt Count 205, MPV 9.5, Immature Gran % (Auto) 0.700, Neut % (Auto) 90.8 H, Lymph % (Auto) 3.7 L, [place] % (Auto) 4.3, Eos % (Auto) 0.2, Baso % (Auto) 0.3, Absolute Neuts (auto) 11.7 H, Absolute Lymphs (auto) 0.48 L, Nucleated RBC % 0, Differential Comment SCANNED, Sodium 138, Potassium 6.1 H*, Chloride 113 H, Carbon Dioxide 16.0 L, Anion Gap 9, BUN 113 H*, Creatinine 7.40 H, Estim Creat Clear Calc 7.50, Est GFR (MDRD) Af Amer 9 L, Est GFR (MDRD) Non-Af 8 L, BUN/Creatinine Ratio 15.3, Glucose 74, Calcium 8.5, Iron 22 L, TIBC 233 L, Iron Saturation 9.4 L, Ferritin 93 12/30/22 16:33: Lactic Acid 0.6 12/30/22 17:25: Urine Color Yellow, Urine Clarity Sl. Cloudy, Urine pH 5.0, Ur Specific [place] 1.015, Urine Protein 30 H, Urine Glucose (UA) Normal, Urine Ketones Negative, Urine Occult Blood 150 H, Urine Nitrite Negative, Urine Bilirubin Negative, Urine Urobilinogen Normal, Ur Leukocyte Esterase 500 H, Urine RBC 0 SEEN, Urine WBC 50-100 SEEN, Ur Squamous Epith Cells 0-5 SEEN, Urine Bacteria 1+, Urine Mucus 0 SEEN 12/30/22 18:25: U Random Total Protein 84.5 H, Ur Random Sodium 65, Urine Creatinine 60.60, Protein/Creatinin Ratio 1394 H 12/30/22 20:50: POC Glucose 106 12/30/22 23:07: POC Glucose 81 12/31/22 00:46: POC Glucose 122 H 12/31/22 02:44: POC Glucose 124 H 12/31/22 05:10: WBC 15.4 H, RBC 3.99 L, Hgb 11.3 L, Hct 36.3 L, MCV 91.0, MCH 28.3, MCHC 31.1 L, RDW Std Deviation 61.0 H, RDW Coeff of Audi 18.2 H, Plt Count 224, MPV 10.2, Sodium 139, Potassium 7.4 H*, Chloride 111 H, Carbon Dioxide 18.0 L, Anion Gap 10, BUN 119 H*, Creatinine 7.04 H, Estim Creat Clear Calc 7.89, Est GFR (MDRD) Af Amer 10 L, Est GFR (MDRD) Non-Af 8 L, BUN/Creatinine Ratio 16.9, Glucose 119 H, Calcium 8.7 12/31/22 06:56: POC Glucose 152 H Micro: Microbiology 12/31/22 03:40 Mucosa - Nose Respiratory Panel (PCR) - Final 12/31/22 04:30 Urine Catheter - Catheter Legionella Antigen - Final 12/31/22 04:30 Urine Catheter - Catheter Streptococcus pneumoniae Antigen (M - Final 12/31/22 03:00 Nasal Secretion SARS-CoV-2 Antigen (Rapid) - Final Radiology Impression Brain CT 12/30/22 16:21 IMPRESSION: Volume loss with chronic white matter changes. No acute intracranial findings. Electronically Signed: Vignesh Herrmann MD at 17:26 EDT , Chest X-Ray 12/30/22 16:54 IMPRESSION: No radiographic evidence of acute cardiopulmonary disease. Electronically Signed: Vignesh Herrmann MD at 17:19 EDT , Renal Ultrasound 12/30/22 18:24 IMPRESSION: Negative renal ultrasound. Electronically Signed: Vignesh Herrmann MD at 19:26 EDT ,
--- NOTE | 2022-12-31 11:00 | NURSING ---
Equipment at bedside for Dr. Hobbs, including 16 cm curved and 20 cm straight catheters, in preparation for dialysis line placement.
[2022-12-31] MEDS: Lidocaine 2% (20 ml mdv) 20 ML Vial 5 ML INFILT (11:10)
--- NOTE | 2022-12-31 11:10 | NURSING ---
Dr. Hobbs at bedside placing right femoral dialysis line with 16 cm curved catheter.
--- NOTE | 2022-12-31 11:12 | OP.PCM_ITS ---
Operative Report Date of Procedure: 12/31/22 Right femoral double-lumen dialysis catheter placement Area over the right femoral vein was prepped and draped in the usual fashion and local anesthesia was obtained after subcutaneous injection with 2% lidocaine. Afterwards using Seldinger technique 15 cm curved double-lumen hemodialysis cat heter was introduced in the right femoral vein without difficulties. Patient tolerated procedure well. Catheter was flushed, sutures placed, dressing applied
[2022-12-31] MEDS: 0.9% Normal Saline 1,000 ML IV.SOLN. IV ×2 (11:30→18:07)
[2022-12-31] MEDS: PUREFLOW B SOLUTION 2K 5,000 ML BAG 9 BAG PF (11:30)
[2022-12-31 11:43] LABS: Magnesium 2.3 mg/dL (1.6-2.6)
[2022-12-31 11:46] LABS: Ionized Calcium 5.12 mg/dL (4.36-5.20)
[2022-12-31 11:46] LABS: Bedside Glucose 95 mg/dL (74-106)
[2022-12-31 12:03] LABS: Albumin, Serum 2.3 g/dL (3.2-5.0); BUN 108 mg/dL (7-18); BUN/Creat Ratio 15.6 RATIO (10-20); Calcium,Total 8.6 mg/dL (8.5-10.1); Chloride 114 mmol/L (98-107); Creatinine, Serum 6.93 mg/dL (0.70-1.30); EST Glomerular Filtration Rate 8 mL/min (>60); Est Glom Filt Rate - Afr Amer 10 mL/min (>60); Estimated Creatinine Clearance 8.01 ml/min; Glucose 110 mg/dL (74-106); Phosphorus 7.5 mg/dL (2.5-4.9); Potassium 6.4 mmol/L (3.5-5.1); Sodium Level 141 mmol/L (136-145)
--- NOTE | 2022-12-31 12:54 | CASEMGMT ---
Social Work Pt had stated does not have LW/POA and declined any further information when asked by vice president of contracts. PARADISE Ramos
[2022-12-31 13:31] LABS: Hemoglobin 10.6 g/dL (13.0-16.5); Mean Corp Hgb Conc 30.3 g/dL (32-36); Mean Corpuscular Hgb 27.7 pg (27.0-32.0); Mean Corpuscular Volume 91.4 fL (80-94); Mean Platelet Vol. 10.1 fl (6.2-12.0); Platelet Count 218 K/mm3 (150-450); RBC Distribution Width CV 18.4 % (11.6-14.6); RBC Distribution Width SD 61.9 fl (35.1-43.9); Red Blood Count 3.83 M/mm3 (4.6-6.2); White Blood Count 15.7 K/mm3 (4.4-11.0)
[2022-12-31] MEDS: Heparin 10,000 UNITS/10 ML Vial IV (16:09)
[2022-12-31 16:19] LABS: Hematocrit 35.2 % (40-54); Hemoglobin 10.8 g/dL (13.0-16.5); Mean Corp Hgb Conc 30.7 g/dL (32-36); Mean Corpuscular Hgb 27.9 pg (27.0-32.0); Mean Platelet Vol. 9.7 fl (6.2-12.0); Platelet Count 179 K/mm3 (150-450); RBC Distribution Width CV 18.3 % (11.6-14.6); RBC Distribution Width SD 61.2 fl (35.1-43.9); Red Blood Count 3.87 M/mm3 (4.6-6.2); White Blood Count 16.1 K/mm3 (4.4-11.0)
--- NOTE | 2022-12-31 16:28 | EX.PCM.CON.S ---
Assessment & Plan Assessment/Plan (1) Acute hyperkalemia: (2) Acute kidney injury: PLAN: Plan Plan to place temporary right IJ dialysis catheter for dialysis. Discussed the procedure with the patient including risk and benefits. He had no further questions this time. Also plan to pull the femoral catheter as well. Alix Koenig M.D. Pager: [phone] [facility] [address] [place] [address], [facility], [address] [place] [address] Office: [phone] HPI Consult Data Date of Consult: 12/31/22 HPI Narrative Reason for Consultation: Dialysis catheter HPI Narrative: JONAH ALEXANDRA, is a 77 M who who was initially mated to the floor change the ICU due to increasing creatinine as well as potassium. Nephrology saw patient and placed a femoral dialysis catheter however this is only able to run for about 4 hours due to multiple alarms and also clotting off the entire machine. Request for a new dialysis catheter. [facility] Medical History Anxiety Chest pain Chronic pain COPD (chronic obstructive pulmonary disease) Diabetes DVT (deep venous thrombosis) Former smoker Hearing loss, left Hearing loss, right Hypertension Kidney disease Kidney stones Myocardial infarct Sleep apnea Home Medications gabapentin 400 mg capsule 400 mg PO TID NERVE PAIN 08/20/18 [History Last Taken 08/20/18] glipizide 5 mg tablet 5 mg PO .BEFORE MEALS DM 08/20/18 [History Last Taken 08/20/18] sertraline 50 mg tablet 100 mg PO DAILY DEPRESSION 08/20/18 [History Last Taken 08/20/18] carvedilol 3.125 mg tablet 3.125 mg PO BID 08/21/18 [Rx Last Taken Unknown] ceftriaxone 1 gram/50 mL in dextrose (iso-osmot) intravenous piggyback 1 g (50 mL) IV Q24 08/21/18 [Rx Last Taken Unknown] clopidogrel 75 mg tablet 75 mg PO DAILY 08/21/18 [Rx Last Taken Unknown] albuterol 90 mcg/actuation aerosol inhaler 90 mcg inhalation .4X A DAY PRN SOB 12/30/22 [History Last Taken Unknown] amlodipine 10 mg tablet 10 mg PO DAILY 12/30/22 [History Last Taken Unknown] cholecalciferol (vitamin D3) 25 mcg (1,000 unit) capsule 75 mcg PO DAILY 12/30/22 [History Last Taken Unknown] cyanocobalamin (vitamin B-12) 1,000 mcg capsule 1,000 mcg PO DAILY 12/30/22 [History Last Taken Unknown] hydrocodone-acetaminophen 5-325mg 5mg-325mg 1 tab PO TID 12/30/22 [History Last Taken Unknown] insulin glargine 100 unit/mL subcutaneous solution 50 unit subcut QHS 12/30/22 [History Last Taken Unknown] metformin 500 mg 24 hr tablet,extended release (Glumetza) 500 mg PO BID 12/30/22 [History Last Taken Unknown] mometasone 200 mcg/actuation HFA aerosol inhaler (Asmanex HFA) 2 puff inhalation BID 12/30/22 [History Last Taken Unknown] rosuvastatin 40 mg tablet (Crestor) 40 mg PO QHS 12/30/22 [History Last Taken Unknown] tiotropium 2.5 mcg-olodaterol 2.5 mcg/actuation mist for inhalation (Stiolto Respimat) 2 inh inhalation DAILY 12/30/22 [History Last Taken Unknown] Allergy/AdvReac Type Severity Reaction Status Date / Time No Known Allergies Allergy Verified 12/30/22 19:34 Surgical History History of coronary artery stent placement Hx of CABG Social History Smoking Status: Former smoker Physical Exam Const alert and no apparent distress HEENT normocephalic Neck supple Resp normal respiratory effort Cardio Rate: regular rate GI soft to palpation, non-tender and non-distended Extremity normal to inspection Lab / Micro Data 12/31/22 16:00 12/31/22 16:00 Labs: Laboratory Results - last 24 hr 12/30/22 16:10: WBC 12.9 H, RBC 3.83 L, Hgb 11.0 L, Hct 34.7 L, MCV 90.6, MCH 28.7, MCHC 31.7 L, RDW Std Deviation 60.6 H, RDW Coeff of Audi 18.2 H, Plt Count 205, MPV 9.5, Immature Gran % (Auto) 0.700, Neut % (Auto) 90.8 H, Lymph % (Auto) 3.7 L, Barbour % (Auto) 4.3, Eos % (Auto) 0.2, Baso % (Auto) 0.3, Absolute Neuts (auto) 11.7 H, Absolute Lymphs (auto) 0.48 L, Nucleated RBC % 0, Differential Comment SCANNED, Sodium 138, Potassium 6.1 H*, Chloride 113 H, Carbon Dioxide 16.0 L, Anion Gap 9, BUN 113 H*, Creatinine 7.40 H, Estim Creat Clear Calc 7.50, Est GFR (MDRD) Af Amer 9 L, Est GFR (MDRD) Non-Af 8 L, BUN/Creatinine Ratio 15.3, Glucose 74, Calcium 8.5, Iron 22 L, TIBC 233 L, Iron Saturation 9.4 L, Ferritin 93 12/30/22 16:33: Lactic Acid 0.6 12/30/22 17:25: Urine Color Yellow, Urine Clarity Sl. Cloudy, Urine pH 5.0, Ur Specific Elwood 1.015, Urine Protein 30 H, Urine Glucose (UA) Normal, Urine Ketones Negative, Urine Occult Blood 150 H, Urine Nitrite Negative, Urine Bilirubin Negative, Urine Urobilinogen Normal, Ur Leukocyte Esterase 500 H, Urine RBC 0 SEEN, Urine WBC 50-100 SEEN, Ur Squamous Epith Cells 0-5 SEEN, Urine Bacteria 1+, Urine Mucus 0 SEEN 12/30/22 18:25: U Random Total Protein 84.5 H, Ur Random Sodium 65, Urine Creatinine 60.60, Protein/Creatinin Ratio 1394 H 12/30/22 20:50: POC Glucose 106 12/30/22 23:07: POC Glucose 81 12/31/22 00:46: POC Glucose 122 H 12/31/22 02:44: POC Glucose 124 H 12/31/22 05:10: WBC 15.4 H, RBC 3.99 L, Hgb 11.3 L, Hct 36.3 L, MCV 91.0, MCH 28.3, MCHC 31.1 L, RDW Std Deviation 61.0 H, RDW Coeff of Audi 18.2 H, Plt Count 224, MPV 10.2, Sodium 139, Potassium 7.4 H*, Chloride 111 H, Carbon Dioxide 18.0 L, Anion Gap 10, BUN 119 H*, Creatinine 7.04 H, Estim Creat Clear Calc 7.89, Est GFR (MDRD) Af Amer 10 L, Est GFR (MDRD) Non-Af 8 L, BUN/Creatinine Ratio 16.9, Glucose 119 H, Calcium 8.7 12/31/22 06:56: POC Glucose 152 H 12/31/22 11:00: WBC 15.7 H, RBC 3.83 L, Hgb 10.6 L, Hct 35.0 L, MCV 91.4, MCH 27.7, MCHC 30.3 L, RDW Std Deviation 61.9 H, RDW Coeff of Audi 18.4 H, Plt Count 218, MPV 10.1, Sodium 141, Potassium 6.4 H*, Chloride 114 H, Carbon Dioxide 16.0 L, BUN 108 H*, Creatinine 6.93 H, Estim Creat Clear Calc 8.01, Est GFR (MDRD) Af Amer 10 L, Est GFR (MDRD) Non-Af 8 L, BUN/Creatinine Ratio 15.6, Glucose 110 H, Calcium 8.6, Phosphorus 7.5 H, C-React Prot Ext Range 54.30 H, Albumin 2.3 L 12/31/22 11:25: Magnesium 2.3, POC Glucose 95 12/31/22 11:43: Ionized Calcium 5.12 12/31/22 16:00: WBC 16.1 H, RBC 3.87 L, Hgb 10.8 L, Hct 35.2 L, MCV 91.0, MCH 27.9, MCHC 30.7 L, RDW Std Deviation 61.2 H, RDW Coeff of Audi 18.3 H, Plt Count 179, MPV 9.7 Micro: Microbiology 12/30/22 17:25 Urine, Catheterized Urine Culture - Preliminary Presumptive E. coli 12/31/22 03:40 Mucosa - Nose Respiratory Panel (PCR) - Final 12/31/22 04:30 Urine Catheter - Catheter Legionella Antigen - Final 12/31/22 04:30 Urine Catheter - Catheter Streptococcus pneumoniae Antigen (M - Final 12/31/22 03:00 Nasal Secretion SARS-CoV-2 Antigen (Rapid) - Final Radiology Impression Brain CT 12/30/22 16:21 IMPRESSION: Volume loss with chronic white matter changes. No acute intracranial findings. Electronically Signed: Vignesh Herrmann MD at 17:26 EDT , Chest X-Ray 12/30/22 16:54 IMPRESSION: No radiographic evidence of acute cardiopulmonary disease. Electronically Signed: Vignesh Herrmann MD at 17:19 EDT , Renal Ultrasound 12/30/22 18:24 IMPRESSION: Negative renal ultrasound. Electronically Signed: Vignesh Herrmann MD at 19:26 EDT , Charges/Coding Visit Charges Inpatient E&M: 16266 Init Hosp L2
[2022-12-31 16:38] LABS: Albumin, Serum 2.3 g/dL (3.2-5.0); BUN 100 mg/dL (7-18); BUN/Creat Ratio 16.1 RATIO (10-20); Calcium,Total 8.6 mg/dL (8.5-10.1); Chloride 115 mmol/L (98-107); EST Glomerular Filtration Rate 9 mL/min (>60); Est Glom Filt Rate - Afr Amer 11 mL/min (>60); Estimated Creatinine Clearance 8.95 ml/min; Glucose 97 mg/dL (74-106); Phosphorus 6.2 mg/dL (2.5-4.9); Potassium 5.8 mmol/L (3.5-5.1); Sodium Level 139 mmol/L (136-145)
[2022-12-31 16:41] LABS: Bedside Glucose 93 mg/dL (74-106)
--- NOTE | 2022-12-31 16:45 | NURSING ---
Dr. Koenig at bedside to place RIJ temporary dialysis line
--- NOTE | 2022-12-31 17:00 | CASEMGMT ---
REGLA GUTIERREZ DC Planning assessment attempted. Pt undergoing a procedure. Will follow-up on Monday. Muriel Billingsley RN CM
--- NOTE | 2022-12-31 17:00 | OP.PCM_ITS ---
Report of Operation Date of Procedure: 12/31/22 Pre-Operative Diagnosis: Hyperkalemia, acute kidney injury Post-Operative Diagnosis: Same Surgery/Procedure Performed:: Insertion of right IJ dialysis catheter temporary, removal of right femoral dialysis catheter Surgeon: Alix Koenig Type of Anesthesia: Local Estimated Blood Loss (mL): < 10 cc Description of Procedure: Procedure: A time-out was completed to verify correct patient, indication, medication allergies, procedure, coagulation studies, informed consent signed, and equipment needed. The patient was placed in the supine position for a central line placement to the right IJ vein. The patients right neck was prepped using chlorhexidine and a full body sterile drape was applied. 1% lidocaine was used to anesthetize the surrounding skin. A Mahurkar Elite 11.5 Dominican x16 cm (ref [id number] lot [id number]) Temporary hemodialysis catheter introduced into the internal jugular vein using the modified Seldinger technique with the assistance of ultrasound. The site was dilated up twice in a stepwise fashion. The catheter was threaded smoothly over the guidewire, the guidewire was removed easily, nonpulsatile blood returned. All ports were aspirated of air and flushed with sterile saline ?was not flushed with heparin as patient will be starting on dialysis directly after x-ray. The catheter was sutured in place and covered with an occlusive dressing impregnated with chlorhexidine. Chest x-ray ordered. Addendum: X-ray shows dialysis catheter in place. No pneumothorax Patient's right femoral dialysis catheter was pulled after the suture was cut. Pressure was held for 15 minutes hemostasis was assured. Pressure dressing was placed. Grafts/Implants Used: Mahurkar Elite 11.5 Dominican x16 cm (ref [id number] lot [id number]) Complications none
--- NOTE | 2022-12-31 17:05 | RAD_ITS ---
STUDY: X-RAY CHEST REASON FOR EXAM: Male, 77 years old. line placement TECHNIQUE: AP COMPARISON: Earlier today FINDINGS: Right jugular dialysis catheter with tip overlying the lower SVC. Sternal wires and mediastinal surgical clips compatible with prior CABG. EKG leads project over the chest. Coarse interstitial lung markings stable. No airspace consolidation. There is no demonstrated pleural abnormality. Normal size heart. Normal mediastinum and loco. Normal visualized pulmonary arteries. Normal visualized aortic arch and descending thoracic aorta. No acute bony process. There is no demonstrated abnormality of the visualized soft tissue structures of the upper abdomen. RAD/CXR for Line Placement IMPRESSION: Right jugular dialysis catheter terminates in the lower SVC. No pneumothorax. Electronically Signed: Silvestre Poe ([place]), at 17:55 EDT ,
[2022-12-31] MEDS: Atorvastatin Calcium 80 MG Tablet PO (21:10)
[2022-12-31 21:20] LABS: Bedside Glucose 98 mg/dL (74-106)
[2022-12-31 22:10] LABS: Hematocrit 31.4 % (40-54); Hemoglobin 10.1 g/dL (13.0-16.5); Mean Corp Hgb Conc 32.2 g/dL (32-36); Mean Corpuscular Hgb 28.9 pg (27.0-32.0); Mean Corpuscular Volume 89.7 fL (80-94); Mean Platelet Vol. 9.5 fl (6.2-12.0); Platelet Count 159 K/mm3 (150-450); RBC Distribution Width CV 18.3 % (11.6-14.6); RBC Distribution Width SD 59.9 fl (35.1-43.9); White Blood Count 13.3 K/mm3 (4.4-11.0)
[2022-12-31 22:34] LABS: Albumin, Serum 2.1 g/dL (3.2-5.0); BUN 77 mg/dL (7-18); BUN/Creat Ratio 16.5 RATIO (10-20); Calcium,Total 8.5 mg/dL (8.5-10.1); Chloride 112 mmol/L (98-107); Creatinine, Serum 4.67 mg/dL (0.70-1.30); EST Glomerular Filtration Rate 13 mL/min (>60); Est Glom Filt Rate - Afr Amer 16 mL/min (>60); Estimated Creatinine Clearance 11.89 ml/min; Glucose 115 mg/dL (74-106); Phosphorus 4.9 mg/dL (2.5-4.9); Sodium Level 138 mmol/L (136-145)
[2022-12-31 23:51] LABS: Magnesium 1.8 mg/dL (1.6-2.6)
[2023-01-01] VITALS (27 sets, daily range): BP systolic 103–155; BP diastolic 45–94; PULSE 76–105; RESP 15–25; TEMP 36.1–37.7; O2SAT 90–98; BMI 28.8
[2023-01-01 02:38] LABS: Bedside Glucose 85 mg/dL (74-106)
[2023-01-01 04:15] LABS: Hematocrit 31.7 % (40-54); Hemoglobin 10.2 g/dL (13.0-16.5); Mean Corp Hgb Conc 32.2 g/dL (32-36); Mean Corpuscular Hgb 28.4 pg (27.0-32.0); Mean Corpuscular Volume 88.3 fL (80-94); Mean Platelet Vol. 9.5 fl (6.2-12.0); Platelet Count 159 K/mm3 (150-450); RBC Distribution Width CV 17.9 % (11.6-14.6); RBC Distribution Width SD 57.7 fl (35.1-43.9); Red Blood Count 3.59 M/mm3 (4.6-6.2); White Blood Count 13.1 K/mm3 (4.4-11.0)
[2023-01-01 04:39] LABS: Albumin, Serum 2.2 g/dL (3.2-5.0); BUN 50 mg/dL (7-18); BUN/Creat Ratio 15.8 RATIO (10-20); Calcium,Total 8.6 mg/dL (8.5-10.1); Chloride 110 mmol/L (98-107); Creatinine, Serum 3.17 mg/dL (0.70-1.30); EST Glomerular Filtration Rate 20 mL/min (>60); Est Glom Filt Rate - Afr Amer 25 mL/min (>60); Estimated Creatinine Clearance 17.51 ml/min; Glucose 85 mg/dL (74-106); Phosphorus 3.8 mg/dL (2.5-4.9); Potassium 4.4 mmol/L (3.5-5.1); Sodium Level 141 mmol/L (136-145)
[2023-01-01 05:05] LABS: Magnesium 1.8 mg/dL (1.6-2.6)
[2023-01-01] MEDS: HYDROcodone Bitartrate/Apap 5/325 Tablet PO ×3 (06:07→20:59)
[2023-01-01] MEDS: Budesonide Respules 0.5 MG/2 ML AMPUL.NEB. INHALATION ×2 (06:49→19:04)
--- NOTE | 2023-01-01 07:23 | PN.HOSP_ITS ---
Reason for Visit Reason for Visit: Diagnoses Hyperkalemia (12/30/22) Acute kidney failure, unspecified (12/30/22) Subjective Subjective Patient seen currently undergoing CRRT. Creatinine down to 3.17, potassium down to 4.4 Objective Data Objective Data Vital Signs: Vital Signs Temp Pulse Resp BP Pulse Ox O2 Del Method O2 Flow Rate 98.4 F 88 18 129/82 H 97 Nasal Cannula 3 01/01/23 07:00 01/01/23 07:00 01/01/23 07:00 01/01/23 07:00 01/01/23 07:00 01/01/23 06:51 01/01/23 07:00 Oxygen Flow Rate (L/min) 3 Oxygen Delivery Method Nasal Cannula Weight: 80.7 kg Body Mass Index (BMI) 29.6 Intake & Output: Intake and Output for Last 24 Hours 12/30/22 12/31/22 01/01/23 23:59 23:59 23:59 Intake Total 1050 / 1305 2250 / 2250 Output Total 750 / 750 407 / 407 Balance 300 / 555 1843 / 1843 Lab / Micro Data 01/01/23 04:00 01/01/23 04:00 Labs: Laboratory Results - last 24 hr 12/31/22 05:10: Sodium 139, Potassium 7.4 H*, Chloride 111 H, Carbon Dioxide 18.0 L, Anion Gap 10, BUN 119 H*, Creatinine 7.04 H, Estim Creat Clear Calc 7.89, Est GFR (MDRD) Af Amer 10 L, Est GFR (MDRD) Non-Af 8 L, BUN/Creatinine Ratio 16.9, Glucose 119 H, Calcium 8.7 12/31/22 06:56: POC Glucose 152 H 12/31/22 11:00: WBC 15.7 H, RBC 3.83 L, Hgb 10.6 L, Hct 35.0 L, MCV 91.4, MCH 27.7, MCHC 30.3 L, RDW Std Deviation 61.9 H, RDW Coeff of Audi 18.4 H, Plt Count 218, MPV 10.1, Sodium 141, Potassium 6.4 H*, Chloride 114 H, Carbon Dioxide 16.0 L, BUN 108 H*, Creatinine 6.93 H, Estim Creat Clear Calc 8.01, Est GFR (MDRD) Af Amer 10 L, Est GFR (MDRD) Non-Af 8 L, BUN/Creatinine Ratio 15.6, Glucose 110 H, Calcium 8.6, Phosphorus 7.5 H, C-React Prot Ext Range 54.30 H, Albumin 2.3 L 12/31/22 11:25: Magnesium 2.3, POC Glucose 95 12/31/22 11:43: Ionized Calcium 5.12 12/31/22 16:00: WBC 16.1 H, RBC 3.87 L, Hgb 10.8 L, Hct 35.2 L, MCV 91.0, MCH 27.9, MCHC 30.7 L, RDW Std Deviation 61.2 H, RDW Coeff of Audi 18.3 H, Plt Count 179, MPV 9.7, Sodium 139, Potassium 5.8 H, Chloride 115 H, Carbon Dioxide 18.0 L , BUN 100 H, Creatinine 6.20 H, Estim Creat Clear Calc 8.95, Est GFR (MDRD) Af Amer 11 L, Est GFR (MDRD) Non-Af 9 L, BUN/Creatinine Ratio 16.1, Glucose 97, Calcium 8.6, Phosphorus 6.2 H, Magnesium 2.0, Albumin 2.3 L 12/31/22 16:02: POC Glucose 93 12/31/22 20:59: POC Glucose 98 12/31/22 22:00: WBC 13.3 H, RBC 3.50 L, Hgb 10.1 L, Hct 31.4 L, MCV 89.7, MCH 28.9, MCHC 32.2, RDW Std Deviation 59.9 H, RDW Coeff of Audi 18.3 H, Plt Count 159, MPV 9.5, Sodium 138, Potassium 5.0, Chloride 112 H, Carbon Dioxide 21.0, BUN 77 H, Creatinine 4.67 H, Estim Creat Clear Calc 11.89, Est GFR (MDRD) Af Amer 16 L, Est GFR (MDRD) Non-Af 13 L, BUN/Creatinine Ratio 16.5, Glucose 115 H, Calcium 8.5, Phosphorus 4.9, Magnesium 1.8, Albumin 2.1 L 01/01/23 02:20: POC Glucose 85 01/01/23 04:00: WBC 13.1 H, RBC 3.59 L, Hgb 10.2 L, Hct 31.7 L, MCV 88.3, MCH 28.4, MCHC 32.2, RDW Std Deviation 57.7 H, RDW Coeff of Audi 17.9 H, Plt Count 159, MPV 9.5, Sodium 141, Potassium 4.4, Chloride 110 H, Carbon Dioxide 24.0, BUN 50 H, Creatinine 3.17 H, Estim Creat Clear Calc 17.51, Est GFR (MDRD) Af Amer 25 L, Est GFR (MDRD) Non-Af 20 L, BUN/Creatinine Ratio 15.8, Glucose 85, Calcium 8.6, Phosphorus 3.8, Magnesium 1.8, Albumin 2.2 L Micro: Microbiology 12/30/22 17:25 Urine, Catheterized Urine Culture - Preliminary Presumptive E. coli 12/31/22 03:40 Mucosa - Nose Respiratory Panel (PCR) - Final 12/31/22 04:30 Urine Catheter - Catheter Legionella Antigen - Final 12/31/22 04:30 Urine Catheter - Catheter Streptococcus pneumoniae Antigen (M - Final 12/31/22 03:00 Nasal Secretion SARS-CoV-2 Antigen (Rapid) - Final Radiography Diagnostic Testing: Radiology Impression Chest X-Ray 12/31/22 10:57 IMPRESSION: 1. Nonacute portable x-ray examination of the chest. Electronically Signed: Silvestre AnnaAlfreditoRickie Poe, at 18:00 EDT , Chest X-Ray 12/31/22 17:05 IMPRESSION: Right jugular dialysis catheter terminates in the lower SVC. No pneumothorax. Electronically Signed: Silvestre CastilloGlaserRickie Poe, at 17:55 EDT , Physical Exam Const alert Constitutional Narrative: Obese male, lying comfortably in bed, slowed responses but answering all questions appropriately, no acute distress. General Appearance: cooperative and comfortable HEENT normocephalic, head/scalp atraumatic, hearing grossly normal bilaterally, nasal mucous membranes and turbinates normal and moist oral mucous membranes Eyes PERRL, EOMs intact bilaterally and conjunctivae normal Neck full ROM, no lymphadenopathy and supple Lymph Lymphatic: no lymphadenopathy noted Chest inspection of chest normal Resp normal respiratory effort, normal air movement, no use of accessory muscles and clear to auscultation bilaterally Cardio regular rate, regular rhythm, no murmurs and peripheral pulses 2+ throughout GI normal to inspection, nondistended, normoactive bowel sounds, soft to palpation, non-tender and non-distended GI Narrative: No suprapubic tenderness noted. Back/Spine normal ROM Extremity normal to inspection, full ROM and no pedal edema Skin no rashes or lesions noted Psych mental status grossly normal Assessment & Plan Assessment/Plan (1) Acute kidney injury: PLAN: Plan Patient is a 77-year-old male with past medical history significant for chronic kidney disease stage III, coronary artery disease with previous CABG diabetes mellitus type 2 presented with increased generalized weakness. Patient creatinine on admission was 7.40 with potassium of 6.1 admitted to a monitored bed for subsequent management 1. Acute kidney injury Baseline creatinine 1.7 creatinine on admission was 7.4. Patient was initially admitted to regular nursing floor transferred to the intensive care unit with rising potassium. Case discussed with nephrology patient may need dialysis given his significant hyperkalemia -01/01/2023 patient did receive CRRT. Creatinine down to 3.17, potassium down to 4.4 2. Hyperkalemia ? Secondary to JOHN patient transferred to intensive care unit monitored continuously on telemetry Case discussed with nephrology for possible dialysis in the meantime patient did receive calcium gluconate dextrose as well as Kayexalate ? 01/01/2023 treated with CRRT 3. Acute urinary retention ? Patient had a Gonzalez catheter placed. This may be attributing to patient impaired kidney function subsequently started on Flomax 4. Pneumonia - Suspected to be secondary to streptococcal pneumonia, Blood and sputum cultures sent. Patient placed on Rocephin and Zithromax and placed on oxygen titrated to keep Pulse Ox greater than 90 5. Diabetes mellitus type II -patient's oral hypoglycemics held. Placed on long acting insulin, Accu-Cheks a.c. and at bedtime and covered with sliding scale insulin 6. Hypertension - Blood pressure controlled, home medications continued with dose adjustment as needed 7. Dyslipidemia -Patient is on statin therapy, continued at home dose 8. Coronary artery disease ? With previous CABG patient is on guideline directed medical therapy 9. Depression ? Patient is on SSRI 10. COPD ? Not in exacerbation aerosol treatment as needed 11. Anemia - Secondary to chronic disorder monitoring H&H and transfuse if patient becomes symptomatic or hemoglobin falls below 7 12. Chronic kidney disease stage III ? Patient presented with JOHN management as discussed above 13. Overweight with BMI of 29.3 ? Weight loss advised 14. DVT prophylaxis ? SC heparin Critical time spent in the patient's overall evaluation,decision-making process, review of diagnostic data, adjustment of management, discussion with other providers, nursing nursing and ancillary staff involved in patient's care documentation, 50 minutes Charges/Coding Visit Charges Inpatient E&M: 53129 Subs Hosp L3
[2023-01-01 08:31] LABS: Bedside Glucose 99 mg/dL (74-106)
[2023-01-01] MEDS: Gabapentin 100 MG Capsule 200 MG PO ×3 (08:58→17:46)
[2023-01-01] MEDS: Menthol/Lanolin/Calamine/Znox 113 GM Tube 1 APPLIC TOPICAL ×2 (08:59→20:59)
[2023-01-01] MEDS: Sertraline 100 MG Tablet PO (08:59)
[2023-01-01] MEDS: Carvedilol 3.125 MG TABLET PO ×2 (08:59→20:59)
[2023-01-01] MEDS: Clopidogrel Bisulfate 75 MG Tablet PO (08:59)
[2023-01-01] MEDS: Aspirin E.C. 81 MG Tablet PO (08:59)
[2023-01-01] MEDS: 0.9% Saline Lock 10 ML Syringe IV (09:03)
--- NOTE | 2023-01-01 09:54 | PCM.PN.SRG ---
Subjective Subjective Patient's right IJ catheter working well for dialysis, right femoral site no signs of hematoma Objective Data Objective Data Vital Signs: Vital Signs Temp Pulse Resp BP Pulse Ox O2 Del Method O2 Flow Rate 98.3 F 90 18 134/59 H 97 Nasal Cannula 2 01/01/23 09:00 01/01/23 09:00 01/01/23 09:00 01/01/23 09:00 01/01/23 09:00 01/01/23 09:00 01/01/23 09:00 Oxygen Flow Rate (L/min) 2 Oxygen Delivery Method Nasal Cannula Weight: 177 lb 14.609 oz Body Mass Index (BMI) 29.6 Intake & Output: Intake and Output for Last 24 Hours 12/30/22 12/31/22 01/01/23 23:59 23:59 23:59 Intake Total 1050 / 1305 2250 / 2250 Output Total 750 / 750 407 / 407 Balance 300 / 555 1843 / 1843 Lab / Micro Data 01/01/23 04:00 01/01/23 04:00 Labs: Laboratory Results - last 24 hr 12/31/22 11:00: WBC 15.7 H, RBC 3.83 L, Hgb 10.6 L, Hct 35.0 L, MCV 91.4, MCH 27.7, MCHC 30.3 L, RDW Std Deviation 61.9 H, RDW Coeff of Audi 18.4 H, Plt Count 218, MPV 10.1, Sodium 141, Potassium 6.4 H*, Chloride 114 H, Carbon Dioxide 16.0 L, BUN 108 H*, Creatinine 6.93 H, Estim Creat Clear Calc 8.01, Est GFR (MDRD) Af Amer 10 L, Est GFR (MDRD) Non-Af 8 L, BUN/Creatinine Ratio 15.6, Glucose 110 H, Calcium 8.6, Phosphorus 7.5 H, C-React Prot Ext Range 54.30 H, Albumin 2.3 L 12/31/22 11:25: Magnesium 2.3, POC Glucose 95 12/31/22 11:43: Ionized Calcium 5.12 12/31/22 16:00: WBC 16.1 H, RBC 3.87 L, Hgb 10.8 L, Hct 35.2 L, MCV 91.0, MCH 27.9, MCHC 30.7 L, RDW Std Deviation 61.2 H, RDW Coeff of Audi 18.3 H, Plt Count 179, MPV 9.7, Sodium 139, Potassium 5.8 H, Chloride 115 H, Carbon Dioxide 18.0 L, BUN 100 H, Creatinine 6.20 H, Estim Creat Clear Calc 8.95, Est GFR (MDRD) Af Amer 11 L, Est GFR (MDRD) Non-Af 9 L, BUN/Creatinine Ratio 16.1, Glucose 97, Calcium 8.6, Phosphorus 6.2 H, Magnesium 2.0, Albumin 2.3 L 12/31/22 16:02: POC Glucose 93 12/31/22 20:59: POC Glucose 98 12/31/22 22:00: WBC 13.3 H, RBC 3.50 L, Hgb 10.1 L, Hct 31.4 L, MCV 89.7, MCH 28.9, MCHC 32.2, RDW Std Deviation 59.9 H, RDW Coeff of Audi 18.3 H, Plt Count 159, MPV 9.5, Sodium 138, Potassium 5.0, Chloride 112 H, Carbon Dioxide 21.0, BUN 77 H, Creatinine 4.67 H, Estim Creat Clear Calc 11.89, Est GFR (MDRD) Af Amer 16 L, Est GFR (MDRD) Non-Af 13 L, BUN/Creatinine Ratio 16.5, Glucose 115 H, Calcium 8.5, Phosphorus 4.9, Magnesium 1.8, Albumin 2.1 L 01/01/23 02:20: POC Glucose 85 01/01/23 04:00: WBC 13.1 H, RBC 3.59 L, Hgb 10.2 L, Hct 31.7 L, MCV 88.3, MCH 28.4, MCHC 32.2, RDW Std Deviation 57.7 H, RDW Coeff of Audi 17.9 H, Plt Count 159, MPV 9.5, Sodium 141, Potassium 4.4, Chloride 110 H, Carbon Dioxide 24.0, BUN 50 H, Creatinine 3.17 H, Estim Creat Clear Calc 17.51, Est GFR (MDRD) Af Amer 25 L, Est GFR (MDRD) Non-Af 20 L, BUN/Creatinine Ratio 15.8, Glucose 85, Calcium 8.6, Phosphorus 3.8, Magnesium 1.8, Albumin 2.2 L 01/01/23 08:07: POC Glucose 99 Micro: Microbiology 12/30/22 17:25 Urine, Catheterized Urine Culture - Final Presumptive E. coli 12/31/22 03:40 Mucosa - Nose Respiratory Panel (PCR) - Final 12/31/22 04:30 Urine Catheter - Catheter Legionella Antigen - Final 12/31/22 04:30 Urine Catheter - Catheter Streptococcus pneumoniae Antigen (M - Final 12/31/22 03:00 Nasal Secretion SARS-CoV-2 Antigen (Rapid) - Final Radiography Diagnostic Testing: Radiology Impression Chest X-Ray 12/31/22 10:57 IMPRESSION: 1. Nonacute portable x-ray examination of the chest. Electronically Signed: Silvestre Poe ([place]), at 18:00 EDT , Chest X-Ray 12/31/22 17:05 IMPRESSION: Right jugular dialysis catheter terminates in the lower SVC. No pneumothorax. Electronically Signed: Silvestre Poe ([place]), at 17:55 EDT , Physical Exam Narrative She is withCurrently running dialysis right IJ dialysis catheter Const oriented x3 Resp normal respiratory effort Cardio regular rate Extremity Extremity Narrative: Right femoral previous dialysis catheter site dressed no signs of hematoma?soft Assessment & Plan Assessment/Plan (1) Acute hyperkalemia: (2) Acute kidney injury: PLAN: Plan No issues with current dialysis catheter right femoral site also no concerns or hematoma. Alix Koenig M.D. Pager: [phone] [facility] [address] [place] [address], [facility], [address] [place] [id number] Office: [phone] Charges/Coding Visit Charges Inpatient E&M: 28127 Subs Hosp L2
[2023-01-01 10:31] LABS: Hematocrit 31.7 % (40-54); Hemoglobin 10.3 g/dL (13.0-16.5); Mean Corp Hgb Conc 32.5 g/dL (32-36); Mean Corpuscular Hgb 28.9 pg (27.0-32.0); Mean Corpuscular Volume 88.8 fL (80-94); Mean Platelet Vol. 9.6 fl (6.2-12.0); Platelet Count 153 K/mm3 (150-450); RBC Distribution Width CV 17.7 % (11.6-14.6); RBC Distribution Width SD 57.4 fl (35.1-43.9); Red Blood Count 3.57 M/mm3 (4.6-6.2); White Blood Count 12.3 K/mm3 (4.4-11.0)
--- NOTE | 2023-01-01 10:38 | NURSING ---
1015 Pt upset and states that he wants all tubes out an he would like to leave. Pt educated about the lines/tubes and necessity. Educated pt on his current status. Distraction attempted. Pt A/O x3 Despite education pt still wants to leave AMA. called and updated. [address] Jc at to talk with patient about the risks of leaving AMA. Pt agreed to discuss with . 1035 , Azul, called and updated on patients status and wanting to pull tubes/ leave AMA. stated that she will be in with son to visit.
[2023-01-01 10:44] LABS: Albumin, Serum 2.2 g/dL (3.2-5.0); BUN 36 mg/dL (7-18); BUN/Creat Ratio 14.8 RATIO (10-20); Calcium,Total 8.6 mg/dL (8.5-10.1); Chloride 107 mmol/L (98-107); Creatinine, Serum 2.43 mg/dL (0.70-1.30); EST Glomerular Filtration Rate 28 mL/min (>60); Est Glom Filt Rate - Afr Amer 34 mL/min (>60); Estimated Creatinine Clearance 22.85 ml/min; Glucose 111 mg/dL (74-106); Phosphorus 3.1 mg/dL (2.5-4.9); Potassium 4.1 mmol/L (3.5-5.1); Sodium Level 137 mmol/L (136-145)
[2023-01-01 10:58] LABS: Magnesium 1.8 mg/dL (1.6-2.6)
[2023-01-01] MEDS: Heparin 10,000 UNITS/10 ML Vial IV (11:05)
[2023-01-01 12:44] LABS: Bedside Glucose 145 mg/dL (74-106)
[2023-01-01] MEDS: CHLORHEXIDINE GLUC 2% CLOTH 1 EACH TOWELETTE TOPICAL (13:51)
[2023-01-01 17:56] LABS: Bedside Glucose 129 mg/dL (74-106)
[2023-01-01] MEDS: Insulin Lispro 100 UNIT/ML INSULN.PEN SC (20:58)
[2023-01-01] MEDS: Atorvastatin Calcium 80 MG Tablet PO (20:59)
[2023-01-01] MEDS: Heparin Injection (Vial) 5,000 UNIT/ML VIAL 5000 UNIT SC (21:00)
[2023-01-01 21:29] LABS: Bedside Glucose 292 mg/dL (74-106)
[2023-01-02] VITALS (13 sets, daily range): BP systolic 98–150; BP diastolic 47–86; PULSE 83–100; RESP 18–22; TEMP 36.3–37.5; O2SAT 89–98
[2023-01-02] MEDS: HYDROcodone Bitartrate/Apap 5/325 Tablet PO ×3 (05:00→20:36)
[2023-01-02 06:31] LABS: Bedside Glucose 116 mg/dL (74-106)
[2023-01-02 07:16] LABS: Anion Gap 6 (5-15); BUN 42 mg/dL (7-18); BUN/Creat Ratio 12.9 RATIO (10-20); Calcium,Total 8.7 mg/dL (8.5-10.1); Chloride 107 mmol/L (98-107); Creatinine, Serum 3.25 mg/dL (0.70-1.30); EST Glomerular Filtration Rate 20 mL/min (>60); Est Glom Filt Rate - Afr Amer 24 mL/min (>60); Estimated Creatinine Clearance 17.08 ml/min; Glucose 121 mg/dL (74-106); Potassium 4.4 mmol/L (3.5-5.1); Sodium Level 139 mmol/L (136-145)
[2023-01-02] MEDS: Budesonide Respules 0.5 MG/2 ML AMPUL.NEB. INHALATION ×2 (08:07→18:56)
[2023-01-02] MEDS: Albuterol 2.5 MG/3 ML VIAL.NEB. INHALATION ×3 (08:09→18:56)
--- NOTE | 2023-01-02 08:21 | PCM.PN.SRG ---
Subjective Subjective Patient states he is ready to go home Objective Data Objective Data Vital Signs: Vital Signs Temp Pulse Resp BP Pulse Ox O2 Del Method O2 Flow Rate 97.3 F L 89 20 H 138/54 H 94 Nasal Cannula 2 01/02/23 05:00 01/02/23 05:00 01/02/23 05:00 01/02/23 05:00 01/02/23 05:00 01/02/23 05:00 01/02/23 05:00 Oxygen Flow Rate (L/min) 2 Oxygen Delivery Method Nasal Cannula Weight: 172 lb 13.478 oz Body Mass Index (BMI) 28.8 Intake & Output: Intake and Output for Last 24 Hours 12/31/22 01/01/23 01/02/23 23:59 23:59 23:59 Intake Total 2250 / 2250 305 / 305 Output Total 407 / 407 505 / 505 400 / 400 Balance 1843 / 1843 -200 / -200 -400 / -400 Lab / Micro Data 01/01/23 10:20 01/02/23 05:20 Labs: Laboratory Results - last 24 hr 01/01/23 08:07: POC Glucose 99 01/01/23 10:20: WBC 12.3 H, RBC 3.57 L, Hgb 10.3 L, Hct 31.7 L, MCV 88.8, MCH 28.9, MCHC 32.5, RDW Std Deviation 57.4 H, RDW Coeff of Audi 17.7 H, Plt Count 153, MPV 9.6, Sodium 137, Potassium 4.1, Chloride 107, Carbon Dioxide 26.0, BUN 36 H, Creatinine 2.43 H, Estim Creat Clear Calc 22.85, Est GFR (MDRD) Af Amer 34 L, Est GFR (MDRD) Non-Af 28 L, BUN/Creatinine Ratio 14.8, Glucose 111 H, Calcium 8.6, Phosphorus 3.1, Magnesium 1.8, Albumin 2.2 L 01/01/23 11:52: POC Glucose 145 H 01/01/23 17:38: POC Glucose 129 H 01/01/23 20:58: POC Glucose 292 H 01/02/23 02:12: POC Glucose 116 H 01/02/23 05:20: Sodium 139, Potassium 4.4, Chloride 107, Carbon Dioxide 26.0, Anion Gap 6, BUN 42 H, Creatinine 3.25 H, Estim Creat Clear Calc 17.08, Est GFR (MDRD) Af Amer 24 L, Est GFR (MDRD) Non-Af 20 L, BUN/Creatinine Ratio 12.9, Glucose 121 H, Calcium 8.7 Micro: Microbiology 12/30/22 17:25 Urine, Catheterized Urine Culture - Final Presumptive E. coli 12/31/22 03:40 Mucosa - Nose Respiratory Panel (PCR) - Final 12/31/22 04:30 Urine Catheter - Catheter Legionella Antigen - Final 12/31/22 04:30 Urine Catheter - Catheter Streptococcus pneumoniae Antigen (M - Final 12/31/22 03:00 Nasal Secretion SARS-CoV-2 Antigen (Rapid) - Final Physical Exam Narrative right IJ dialysis catheter in place Const oriented x3 Resp normal respiratory effort Cardio regular rate Assessment & Plan Assessment/Plan (1) Acute hyperkalemia: (2) Acute kidney injury: PLAN: Plan Right IJ dialysis catheter working well. We will continue to follow. Alix Koenig M.D. Pager: [phone] [facility] [address] [place] [address], [facility], [address] [place] [address] Office: [phone] Charges/Coding Visit Charges Inpatient E&M: 22999 Subs Hosp L2
[2023-01-02] MEDS: Carvedilol 3.125 MG TABLET PO ×2 (08:37→20:37)
[2023-01-02] MEDS: Menthol/Lanolin/Calamine/Znox 113 GM Tube 1 APPLIC TOPICAL ×2 (08:37→20:37)
[2023-01-02] MEDS: Clopidogrel Bisulfate 75 MG Tablet PO (08:37)
[2023-01-02] MEDS: Aspirin E.C. 81 MG Tablet PO (08:37)
[2023-01-02] MEDS: Sertraline 100 MG Tablet PO (08:37)
[2023-01-02] MEDS: Heparin Injection (Vial) 5,000 UNIT/ML VIAL 5000 UNIT SC ×2 (08:38→20:38)
[2023-01-02] MEDS: Gabapentin 100 MG Capsule 200 MG PO ×3 (08:40→16:30)
--- NOTE | 2023-01-02 09:33 | PCM.PN.REN ---
Subjective Subjective Sitting in chair. No overnight events. Hoping to go home today. Objective Data Objective Data Vital Signs: Vital Signs Temp Pulse Resp BP Pulse Ox O2 Del Method O2 Flow Rate 98.3 F 92 18 130/63 H 95 Nasal Cannula 2 01/02/23 09:32 01/02/23 09:32 01/02/23 09:32 01/02/23 09:32 01/02/23 09:32 01/02/23 09:32 01/02/23 09:32 Oxygen Flow Rate (L/min) 2 Oxygen Delivery Method Nasal Cannula Weight: 78.4 kg Body Mass Index (BMI) 28.8 Intake & Output: Intake and Output for Last 24 Hours 12/31/22 01/01/23 01/02/23 23:59 23:59 23:59 Intake Total 2250 / 2250 305 / 305 Output Total 407 / 407 505 / 505 400 / 400 Balance 1843 / 1843 -200 / -200 -400 / -400 Lab / Micro Data 01/01/23 10:20 01/02/23 05:20 Labs: Laboratory Results - last 24 hr 01/01/23 10:20: WBC 12.3 H, RBC 3.57 L, Hgb 10.3 L, Hct 31.7 L, MCV 88.8, MCH 28.9, MCHC 32.5, RDW Std Deviation 57.4 H, RDW Coeff of Audi 17.7 H, Plt Count 153, MPV 9.6, Sodium 137, Potassium 4.1, Chloride 107, Carbon Dioxide 26.0, BUN 36 H, Creatinine 2.43 H, Estim Creat Clear Calc 22.85, Est GFR (MDRD) Af Amer 34 L, Est GFR (MDRD) Non-Af 28 L, BUN/Creatinine Ratio 14.8, Glucose 111 H, Calcium 8.6, Phosphorus 3.1, Magnesium 1.8, Albumin 2.2 L 01/01/23 11:52: POC Glucose 145 H 01/01/23 17:38: POC Glucose 129 H 01/01/23 20:58: POC Glucose 292 H 01/02/23 02:12: POC Glucose 116 H 01/02/23 05:20: Sodium 139, Potassium 4.4, Chloride 107, Carbon Dioxide 26.0, Anion Gap 6, BUN 42 H, Creatinine 3.25 H, Estim Creat Clear Calc 17.08, Est GFR (MDRD) Af Amer 24 L, Est GFR (MDRD) Non-Af 20 L, BUN/Creatinine Ratio 12.9, Glucose 121 H, Calcium 8.7 Micro: Microbiology 12/30/22 17:25 Urine, Catheterized Urine Culture - Final Presumptive E. coli 12/31/22 03:40 Mucosa - Nose Respiratory Panel (PCR) - Final 12/31/22 04:30 Urine Catheter - Catheter Legionella Antigen - Final 12/31/22 04:30 Urine Catheter - Catheter Streptococcus pneumoniae Antigen (M - Final 12/31/22 03:00 Nasal Secretion SARS-CoV-2 Antigen (Rapid) - Final Physical Exam Narrative Alert and oriented x3, no apparent distress Cardiac: Rhythm and rate regular Respiratory: Lung sounds clear anteriorly and posteriorly GI: Abdomen soft, nontender Bull with clear yellow urine in bag Right IJ non-tunneled HD catheter dressing clean, dry and intact Assessment & Plan Assessment/Plan (1) Acute hyperkalemia: (2) Acute kidney injury: PLAN: 77-year-old male with past medical history significant for diabetes mellitus type 2, CAD status post CABG x1, COPD not on home O2, hypertension and CKD who presented to the emergency room on 12/30 with complaints of generalized weakness. Nephrology consulted for JOHN and hyperkalemia -JOHN versus CKD at baseline. Serum creatinine on admission 7.40 mg/dL. Last labs able to review are from August 2018. 08/21/2018 creatinine 1.64 mg/dL. 09/20/2016 creatinine 1.85 mg/dL. [facility] [place] [facility] We will obtain labs to determine baseline creatinine. -Because of JOHN, uremia and hyperkalemia (bicarb 16, K+ peaked 7.4) patient was started on CRRT 12/31 via femoral line. Femoral line was sluggish not functioning well for CRRT therefore femoral line removed and non-tunneled right IJ temporary HD catheter placed. Patient was taken off of CRRT 01/01 at 1050. Today SCr 3.25mg/dL. No uremic symptoms at this time, K+ 4.4, bicarb 26. UOP 400ml so far for this morning. Off metformin. Reviewed med list and does not look like patient was on ANTOINE-I, ARB or diuretic. Volume status stable and patient appears near euvolemic. No plan for GOLF TOURNAMENT CONSULTANT today. -Unclear if this is JOHN on CKD, unclear CKD stage versus ESRD. Discussed that with patient however patient is wanting to go home today. We will follow renal function trajectory. Serologies ordered and pending. UPC 1394mg/g. Renal US no hydro. CXR clear. - urinary retention s/p bull placed - pneumonia on antibiotics.
[2023-01-02 11:34] LABS: Bedside Glucose 166 mg/dL (74-106)
--- NOTE | 2023-01-02 12:22 | PN_ITS ---
Subjective Subjective Patient seen and examined. He had no complaints and had an uneventful night. He says he wants to go home. Review of systems is otherwise negative. Review of systems is otherwise negative. Objective Data Objective Data Vital Signs: Vital Signs Temp Pulse Resp BP Pulse Ox O2 Del Method O2 Flow Rate 98.3 F 92 18 130/63 H 95 Nasal Cannula 2 01/02/23 09:32 01/02/23 09:32 01/02/23 09:32 01/02/23 09:32 01/02/23 09:32 01/02/23 09:32 01/02/23 09:32 Oxygen Flow Rate (L/min) 2 Oxygen Delivery Method Nasal Cannula Weight: 172 lb 13.478 oz Body Mass Index (BMI) 28.8 Intake & Output: Intake and Output for Last 24 Hours 12/31/22 01/01/23 01/02/23 23:59 23:59 23:59 Intake Total 2250 / 2250 305 / 305 Output Total 407 / 407 505 / 505 700 / 700 Balance 1843 / 1843 -200 / -200 -700 / -700 Lab / Micro Data 01/01/23 10:20 01/02/23 05:20 Labs: Laboratory Results - last 24 hr 01/01/23 11:52: POC Glucose 145 H 01/01/23 17:38: POC Glucose 129 H 01/01/23 20:58: POC Glucose 292 H 01/02/23 02:12: POC Glucose 116 H 01/02/23 05:20: Sodium 139, Potassium 4.4, Chloride 107, Carbon Dioxide 26.0, Anion Gap 6, BUN 42 H, Creatinine 3.25 H, Estim Creat Clear Calc 17.08, Est GFR (MDRD) Af Amer 24 L, Est GFR (MDRD) Non-Af 20 L, BUN/Creatinine Ratio 12.9, Glucose 121 H, Calcium 8.7 01/02/23 11:16: POC Glucose 166 H Micro: Microbiology 01/01/23 08:45 Sputum, Expectorated/Coughed Respiratory Culture - Preliminary Gram negative pema 12/30/22 17:25 Urine, Catheterized Urine Culture - Final Presumptive E. coli 12/31/22 03:40 Mucosa - Nose Respiratory Panel (PCR) - Final 12/31/22 04:30 Urine Catheter - Catheter Legionella Antigen - Final 12/31/22 04:30 Urine Catheter - Catheter Streptococcus pneumoniae Antigen (M - Final 12/31/22 03:00 Nasal Secretion SARS-CoV-2 Antigen (Rapid) - Final Physical Exam Const alert, oriented x3 and no apparent distress HEENT normocephalic, head/scalp atraumatic and moist oral mucous membranes Eyes PERRL and EOMs intact bilaterally Neck no lymphadenopathy, supple and no JVD Lymph Lymphatic: no lymphadenopathy noted and no lymphedema noted Resp normal respiratory effort, normal air movement and clear to auscultation bilaterally Cardio regular rate, regular rhythm, S1 normal heart sound, S2 normal heart sound and no murmurs GI normal to inspection, nondistended, normoactive bowel sounds, soft to palpation, non-tender and non-distended Extremity normal capillary refill, no clubbing, cyanosis or edema and no calf tenderness Skin General Skin Exam: no breakdown and turgor normal Neuro CN's II-XII intact bilaterally, no focal motor deficits, no sensory deficits noted and deep tendon reflexes 2+ bilaterally Motor Exam: strength 5/5 throughout Psych thought process normal, cooperative and affect normal Appearance: appropriate Assessment & Plan Assessment/Plan (1) Acute kidney injury: PLAN: Plan #JHON with hyperkalemia * Cr on admissionw as 7.4. Now down to 3.35 * nephrology on board. Had CRRT over the weekend. * management as per nephrology * records requested from [place] in [place] where patient usually goes to get care to evaluate his renal function. * hyperkalemia has resolved. * * #Acute urinary retention: has Gonzalez catheter in place. On flomax #Community acquired pneumonia * thought to be due to Strep pneumoniae. * blood and sputum cultures pending. On rocephin and azithromycin. * titrate oxygen to maintain sats >90% * #Type 2 Diabetes mellitus with neuropathy * on lantus. ISS. Accuchecks ACHS * on gabapentin * #Hypertension: on carvedilol. #Hyperlipidemia: on statin #CAD: s/p CABG. On aspirin and statin as well as plavix. #Anemia: stable. Transfuse if Hb <7 #Depression; on sertraline. DVT prophylaxis: heparin Charges/Coding Visit Charges Inpatient E&M: 24770 Subs Hosp L2
--- NOTE | 2023-01-02 12:25 | CASEMGMT ---
Addendum entered by Lexa Temple 01/03/23 10:54: RN MATT spoke w/Shyla @ [facility]. She was made aware undetermined at this time when pt will be medically ready for discharge. She states they will re-look at the referral when pt is closer to discharge. Original Note: RN?CM?RN COMPLIANCE?CM?to room to meet with patient for initial transition planning/care coordination?assessment.?RN?CM?introduced self and role at [facility].? Pt voices understanding and consents to?assessment?at this time.? Pt sitting up in chair in room in no distress at this time.? Pt is A/O at this time and answers all questions appropriately.?? Care providers, pharmacy, and demographics verified/updated at this time. PCP: Dr Rosales Specialists:none Preferred Pharmacy: [facility] Retail Insurance: [facility], MCR A/B Prescription Benefit:?VA only Living Will/HPOA: Pt does not currently have LW/HCPOA and declines info at this time.? Pt made aware that he can contact as an out-pt and make appt in the future if he decides he would like to talk with someone about this or would like to utilize [facility] social work for advanced directive completion.?? LNOK: , Azul. 3 dtrs: Sara, Katheryn, and Cinda. GS: Jefry Living Arrangements: Lives w/his in bi-level home w/one step to enter into they foyer. Pt states he then has 7 steps to go up to the main level or 6 steps to go down to the basement. Pt states he is independent w/ADL's. does the home mgnt tasks. Jefry does the outside work. Transportation:?Pt states drives self and states no transportation concerns at this time.? DME: States has the following DME:?shower chair, grab bars, pulse ox, walker, and functioning glucometer w/supplies. Pt also has a PAP, but does not use it. Pt states no need for further DME at this time.? HHC/SNF: No hx of either. Pt denies need for SNF, stating he wants to go home. Discussed HHC and pt is interested in this. Pt wants [facility] and declines wanting of other HHC options. Call to Shyla @ [facility] and referral made for SN and PT/OT. Awaiting response. Pt wishes to return home and states has no concerns with going home at time of discharge.??CM?to follow for any further discharge planning/needs.? Pt voices no further concerns/needs at this time.? Advised pt to ask for?CM?if any further questions/concerns/needs arise.? Voices understanding. PLAN:??Home w/HHC. Rl BSN?RN?CM
[2023-01-02 13:07] LABS: ANTINUCLEAR ANTIBODIES DIRECT Negative (Negative)
--- NOTE | 2023-01-02 14:09 | CHAPLAIN ---
Type of Pastoral Visit _x__ Initial Visit ___ Follow-up Visit ___ On-call Visit ___ General Patient Visit ___ Spiritual Assessment ___ Family Conference ___ Bereavement ___ Rapid Response ___ Code Blue ___ Other (describe below) Pastoral Care Referral From _x__ Patient ___ Family ___ Nurse ___ Physician ___ Casting Director ___ Benzol Still Operator ___ Other (describe below) Sacrament/Intervention _x__ Active listening ___ Anointing ___ Nondenominational ___ Bereavement ___ Communion ___ Soha exploration ___ ___ Life review _x__ Prayer ___ Reconciliation ___ Sacrament of Sick _x__ Supportive presence ___ Wedding ___ Other (describe below) Pastoral Comments casual conversation and offer of presence and support given; patient was not able to answer question of where he lives; pt is pleasant but may not be a reliable source of answers; pt could not think of any needs or worries but did welcome a spoken prayer
[2023-01-02 16:09] LABS: Complement C3 131 mg/dL (82-167); Cytoplasmic Ab (C-ANCA) <1:20 titer (Neg:<1:20); Perinuclear Ab (P-ANCA) <1:20 titer (Neg:<1:20)
[2023-01-02] MEDS: Insulin Lispro 100 UNIT/ML INSULN.PEN SC ×2 (16:27→20:47)
--- NOTE | 2023-01-02 16:40 | CASEMGMT ---
REGLA GUTIERREZ NOTE: Call received from [place] transfer center requesting update on pt. Given at this time. He states he will call back in a couple of days for an update. Rl MCNAMARA RN CM
[2023-01-02 16:46] LABS: Bedside Glucose 188 mg/dL (74-106)
[2023-01-02] MEDS: Atorvastatin Calcium 80 MG Tablet PO (20:37)
[2023-01-02 21:09] LABS: Bedside Glucose 185 mg/dL (74-106)
[2023-01-03] VITALS (22 sets, daily range): BP systolic 106–209; BP diastolic 47–87; PULSE 86–100; RESP 14–20; TEMP 36.1–36.4; O2SAT 91–100; BMI 28.8; BMI 27.4
[2023-01-03 03:45] LABS: Absolute Lymphocyte Count 1.49 X10^3/uL (0.83-4.51); Absolute Neutrophil Count 9.3 X10^3/uL (2.0-7.7); Basophil# 0.07 X10^3/uL; Basophil% 0.5 % (0-1); Eosinophil# 0.68 X10^3/uL; Eosinophils% 5.3 % (0-5); Hematocrit 30.2 % (40-54); Hemoglobin 9.4 g/dL (13.0-16.5); Lymphocyte # 1.49 X10^3/ul (0.83-4.51); Lymphocyte % 11.7 % (19-41); Mean Corp Hgb Conc 31.1 g/dL (32-36); Mean Corpuscular Hgb 28.2 pg (27.0-32.0); Mean Corpuscular Volume 90.7 fL (80-94); Mean Platelet Vol. 9.6 fl (6.2-12.0); Monocyte# 1.14 X10^3/uL; NRBC Flagged by Analyzer 0 % (0-5); Neutrophil # 9.27 X10^3/uL (2.7-7.7); Neutrophil % 72.9 % (47-70); Platelet Count 152 K/mm3 (150-450); RBC Distribution Width SD 56.7 fl (35.1-43.9); Red Blood Count 3.33 M/mm3 (4.6-6.2); White Blood Count 12.7 K/mm3 (4.4-11.0)
[2023-01-03 03:57] LABS: Bedside Glucose 145 mg/dL (74-106)
[2023-01-03 04:02] LABS: Albumin, Serum 2.3 g/dL (3.2-5.0); BUN 53 mg/dL (7-18); BUN/Creat Ratio 12.9 RATIO (10-20); Calcium,Total 8.4 mg/dL (8.5-10.1); Chloride 108 mmol/L (98-107); Creatinine, Serum 4.11 mg/dL (0.70-1.30); EST Glomerular Filtration Rate 15 mL/min (>60); Est Glom Filt Rate - Afr Amer 18 mL/min (>60); Estimated Creatinine Clearance 13.51 ml/min; Glucose 163 mg/dL (74-106); Potassium 4.3 mmol/L (3.5-5.1); Sodium Level 140 mmol/L (136-145)
[2023-01-03 04:03] LABS: Anion Gap 6 (5-15); BUN 53 mg/dL (7-18); Calcium,Total 8.4 mg/dL (8.5-10.1); Chloride 108 mmol/L (98-107); Creatinine, Serum 4.08 mg/dL (0.70-1.30); EST Glomerular Filtration Rate 15 mL/min (>60); Est Glom Filt Rate - Afr Amer 19 mL/min (>60); Estimated Creatinine Clearance 13.61 ml/min; Glucose 161 mg/dL (74-106); Potassium 4.3 mmol/L (3.5-5.1); Sodium Level 140 mmol/L (136-145)
[2023-01-03] MEDS: HYDROcodone Bitartrate/Apap 5/325 Tablet PO ×3 (05:16→20:56)
[2023-01-03] MEDS: Budesonide Respules 0.5 MG/2 ML AMPUL.NEB. INHALATION ×2 (07:20→19:12)
--- NOTE | 2023-01-03 08:30 | PN.SURG_ITS ---
Subjective Subjective Patient's creatinine is 4.08 nephrology is currently looking into his baseline deciding if he will get dialysis again today or not. Objective Data Objective Data Vital Signs: Vital Signs Temp Pulse Resp BP Pulse Ox O2 Del Method O2 Flow Rate 97.5 F L 86 20 H 142/63 H 98 Nasal Cannula 2 01/03/23 02:30 01/03/23 02:30 01/03/23 02:30 01/03/23 02:30 01/03/23 02:30 01/03/23 02:30 01/03/23 02:30 Oxygen Flow Rate (L/min) 2 Oxygen Delivery Method Nasal Cannula Weight: 172 lb 13.478 oz Body Mass Index (BMI) 28.8 Intake & Output: Intake and Output for Last 24 Hours 01/01/23 01/02/23 01/03/23 23:59 23:59 23:59 Intake Total 305 / 305 545 / 545 Output Total 505 / 505 1300 / 1300 550 / 550 Balance -200 / -200 -755 / -755 -550 / -550 Lab / Micro Data 01/03/23 03:30 01/03/23 03:30 Labs: Laboratory Results - last 24 hr 12/31/22 11:25: YARELI Screen Negative, c-ANCA Antibody <1:20, Atypical p-ANCA <1:20, p-ANCA Antibody <1:20, JUNIOR-1 Antibody Not Reportable, SS-A/Ro IgG Antibody Not Reportable, SS-B/La IgG Antibody Not Reportable, Sm (Ceballos) Antibody Not Reportable, CHEESE FACTORY WORKER Antibody Not Reportable, Scl-70 Scleroderma Ab Not Reportable, Double Strand DNA Ab Not Reportable, Centromere B Antibody Not Reportable, Complement C3 131, Complement C4 32 01/02/23 11:16: POC Glucose 166 H 01/02/23 16:26: POC Glucose 188 H 01/02/23 20:46: POC Glucose 185 H 01/03/23 03:29: POC Glucose 145 H 01/03/23 03:30: WBC 12.7 H, RBC 3.33 L, Hgb 9.4 L, Hct 30.2 L, MCV 90.7, MCH 28.2, MCHC 31.1 L, RDW Std Deviation 56.7 H, RDW Coeff of Audi 17.0 H, Plt Count 152, MPV 9.6, Immature Gran % (Auto) 0.600, Neut % (Auto) 72.9 H, Lymph % (Auto) 11.7 L, Sharp % (Auto) 9.0, Eos % (Auto) 5.3 H, Baso % (Auto) 0.5, Absolute Neuts (auto) 9.3 H, Absolute Lymphs (auto) 1.49, Nucleated RBC % 0, Sodium 140 01/03/23 03:30: Sodium 140, Potassium 4.3 01/03/23 03:30: Potassium 4.3, Chloride 108 H 01/03/23 03:30: Chloride 108 H, Carbon Dioxide 27.0 01/03/23 03:30: Carbon Dioxide 26.0, Anion Gap 6, BUN 53 H 01/03/23 03:30: BUN 53 H, Creatinine 4.11 H 01/03/23 03:30: Creatinine 4.08 H, Estim Creat Clear Calc 13.51 01/03/23 03:30: Estim Creat Clear Calc 13.61, Est GFR (MDRD) Af Amer 18 L 01/03/23 03:30: Est GFR (MDRD) Af Amer 19 L, Est GFR (MDRD) Non-Af 15 L 01/03/23 03:30: Est GFR (MDRD) Non-Af 15 L, BUN/Creatinine Ratio 12.9 01/03/23 03:30: BUN/Creatinine Ratio 13.0, Glucose 163 H 01/03/23 03:30: Glucose 161 H, Calcium 8.4 L 01/03/23 03:30: Calcium 8.4 L, Phosphorus 5.0 H, Albumin 2.3 L Micro: Microbiology 12/30/22 16:33 Blood Culture (Wb) - Left Hand Blood Culture - Preliminary No growth in 48 hours. 12/30/22 16:33 Blood Culture (Wb) - Anticubital Left Blood Culture - Preliminary No growth in 48 hours. 01/01/23 08:45 Sputum, Expectorated/Coughed Gram Stain - Final 01/01/23 08:45 Sputum, Expectorated/Coughed Respiratory Culture - Preliminary Gram negative pema 12/30/22 17:25 Urine, Catheterized Urine Culture - Final Presumptive E. coli 12/31/22 03:40 Mucosa - Nose Respiratory Panel (PCR) - Final 12/31/22 04:30 Urine Catheter - Catheter Legionella Antigen - Final 12/31/22 04:30 Urine Catheter - Catheter Streptococcus pneumoniae Antigen (M - Final 12/31/22 03:00 Nasal Secretion SARS-CoV-2 Antigen (Rapid) - Final Physical Exam Narrative right IJ dialysis catheter in place Const oriented x3 Resp normal respiratory effort Cardio regular rate Assessment & Plan Assessment/Plan (1) Acute hyperkalemia: (2) Acute kidney injury: PLAN: Plan We will continue to follow. When initially asked patient did not seem to be completely against the idea of dialysis long-term if he needed it however he was also not completely understand the situation as he initially thought I was talking about something would help his breathing which he said he had a machine for at home. Alix Koenig M.D. Pager: [phone] [facility] [address] [place] [address], [address] [place] [address] Office: [phone] Charges/Coding Visit Charges Inpatient E&M: 39759 Subs Hosp L2
--- NOTE | 2023-01-03 09:25 | PCM.PN.REN ---
Subjective Subjective Resting in bed. No overnight events. Denies any complaints today. Denies any diarrhea. Objective Data Objective Data Vital Signs: Vital Signs Temp Pulse Resp BP Pulse Ox O2 Del Method O2 Flow Rate 97.5 F L 94 20 H 129/86 H 97 Nasal Cannula 2 01/03/23 09:20 01/03/23 09:20 01/03/23 09:20 01/03/23 09:20 01/03/23 09:20 01/03/23 09:20 01/03/23 09:20 Oxygen Flow Rate (L/min) 2 Oxygen Delivery Method Nasal Cannula Weight: 78.4 kg Body Mass Index (BMI) 28.8 Intake & Output: Intake and Output for Last 24 Hours 01/01/23 01/02/23 01/03/23 23:59 23:59 23:59 Intake Total 305 / 305 545 / 545 Output Total 505 / 505 1300 / 1300 550 / 550 Balance -200 / -200 -755 / -755 -550 / -550 Lab / Micro Data 01/03/23 03:30 01/03/23 03:30 Labs: Laboratory Results - last 24 hr 12/31/22 11:25: YARELI Screen Negative, c-ANCA Antibody <1:20, Atypical p-ANCA <1:20, p-ANCA Antibody <1:20, JUNIOR-1 Antibody Not Reportable, SS-A/Ro IgG Antibody Not Reportable, SS-B/La IgG Antibody Not Reportable, Sm (Ceballos) Antibody Not Reportable, TOGGLE PRESS OPERATOR Antibody Not Reportable, Scl-70 Scleroderma Ab Not Reportable, Double Strand DNA Ab Not Reportable, Centromere B Antibody Not Reportable, Complement C3 131, Complement C4 32 01/02/23 11:16: POC Glucose 166 H 01/02/23 16:26: POC Glucose 188 H 01/02/23 20:46: POC Glucose 185 H 01/03/23 03:29: POC Glucose 145 H 01/03/23 03:30: WBC 12.7 H, RBC 3.33 L, Hgb 9.4 L, Hct 30.2 L, MCV 90.7, MCH 28.2, MCHC 31.1 L, RDW Std Deviation 56.7 H, RDW Coeff of Audi 17.0 H, Plt Count 152, MPV 9.6, Immature Gran % (Auto) 0.600, Neut % (Auto) 72.9 H, Lymph % (Auto) 11.7 L, [place] % (Auto) 9.0, Eos % (Auto) 5.3 H, Baso % (Auto) 0.5, Absolute Neuts (auto) 9.3 H, Absolute Lymphs (auto) 1.49, Nucleated RBC % 0, Sodium 140 01/03/23 03:30: Sodium 140, Potassium 4.3 01/03/23 03:30: Potassium 4.3, Chloride 108 H 01/03/23 03:30: Chloride 108 H, Carbon Dioxide 27.0 01/03/23 03:30: Carbon Dioxide 26.0, Anion Gap 6, BUN 53 H 01/03/23 03:30: BUN 53 H, Creatinine 4.11 H 01/03/23 03:30: Creatinine 4.08 H, Estim Creat Clear Calc 13.51 01/03/23 03:30: Estim Creat Clear Calc 13.61, Est GFR (MDRD) Af Amer 18 L 01/03/23 03:30: Est GFR (MDRD) Af Amer 19 L, Est GFR (MDRD) Non-Af 15 L 01/03/23 03:30: Est GFR (MDRD) Non-Af 15 L, BUN/Creatinine Ratio 12.9 01/03/23 03:30: BUN/Creatinine Ratio 13.0, Glucose 163 H 01/03/23 03:30: Glucose 161 H, Calcium 8.4 L 01/03/23 03:30: Calcium 8.4 L, Phosphorus 5.0 H, Albumin 2.3 L Micro: Microbiology 12/30/22 16:33 Blood Culture (Wb) - Left Hand Blood Culture - Preliminary No growth in 48 hours. 12/30/22 16:33 Blood Culture (Wb) - Anticubital Left Blood Culture - Preliminary No growth in 48 hours. 01/01/23 08:45 Sputum, Expectorated/Coughed Gram Stain - Final 01/01/23 08:45 Sputum, Expectorated/Coughed Respiratory Culture - Preliminary Gram negative pema 12/30/22 17:25 Urine, Catheterized Urine Culture - Final Presumptive E. coli 12/31/22 03:40 Mucosa - Nose Respiratory Panel (PCR) - Final 12/31/22 04:30 Urine Catheter - Catheter Legionella Antigen - Final 12/31/22 04:30 Urine Catheter - Catheter Streptococcus pneumoniae Antigen (M - Final 12/31/22 03:00 Nasal Secretion SARS-CoV-2 Antigen (Rapid) - Final Physical Exam Narrative Alert and oriented x3, no apparent distress S1, S2, RRR Lung sounds clear Abdomen soft, nontender No edema Bull with clear urine in bag Right IJ non-tunneled HD catheter dressing clean, dry and intact Assessment & Plan Assessment/Plan (1) Acute hyperkalemia: (2) Acute kidney injury: PLAN: 77-year-old male with past medical history significant for diabetes mellitus type 2, CAD status post CABG x1, COPD not on home O2, hypertension [facility]30 with complaints of generalized weakness. Nephrology consulted for JOHN and hyperkalemia -JOHN superimposed on CKD stage IIIb (SCr 2.05 November 2022). Serum creatinine on admission 7.40 mg/dL. -Because of JOHN, uremia and hyperkalemia (bicarb 16, K+ peaked 7.4) patient was started on CRRT 12/31 via femoral line. Femoral line was sluggish not functioning well for CRRT therefore femoral line removed and non-tunneled right IJ temporary HD catheter placed. Patient was taken off of CRRT 01/01 at 1050. Today SCr up to 4.08mg/dL. We will plan for dialysis today. Monitor for renal recovery. Had 1.3L UOP yesterday. Off metformin. Reviewed med list and does not look like patient was on ANTOINE-I, ARB or diuretic. Volume status stable and patient appears near euvolemic. If no noted renal recovery patient will need tunneled HD catheter and outpatient dialysis arrangements. - Serologies ordered: YARELI, p-ANCA, c-ANCA negative, complements normal, rest of serologies pending. UPC 1394mg/g. Renal US no hydro. CXR clear. - urinary retention s/p bull placed - pneumonia on antibiotics.
[2023-01-03] MEDS: PureFlow B 2K Dialysis Soln 1 BAG 6 BAG PF (09:55)
[2023-01-03] MEDS: 0.9% Normal Saline 1,000 ML IV.SOLN. 1000 ML OPERA.SITE (09:55)
[2023-01-03] MEDS: 0.9% Saline Lock 10 ML Syringe IV ×2 (09:55→12:32)
--- NOTE | 2023-01-03 10:50 | PN_ITS ---
Subjective Subjective Patient seen and examined. Was about to get dialysis. He had no complaints and had an uneventful night. Review systems otherwise negative. He has remained hemodynamically stable. Objective Data Objective Data Vital Signs: Vital Signs Temp Pulse Resp BP Pulse Ox O2 Del Method O2 Flow Rate 96.9 F L 100 17 151/64 H 91 Nasal Cannula 3 01/03/23 09:45 01/03/23 10:45 01/03/23 10:45 01/03/23 10:45 01/03/23 10:45 01/03/23 10:45 01/03/23 10:45 Oxygen Flow Rate (L/min) 3 Oxygen Delivery Method Nasal Cannula Weight: 164 lb 14.492 oz Body Mass Index (BMI) 27.4 Intake & Output: Intake and Output for Last 24 Hours 01/01/23 01/02/23 01/03/23 23:59 23:59 23:59 Intake Total 305 / 305 545 / 545 Output Total 505 / 505 1300 / 1300 550 / 550 Balance -200 / -200 -755 / -755 -550 / -550 Lab / Micro Data 01/03/23 03:30 01/03/23 03:30 Labs: Laboratory Results - last 24 hr 12/31/22 11:25: YARELI Screen Negative, c-ANCA Antibody <1:20, Atypical p-ANCA <1:20, p-ANCA Antibody <1:20, JUNIOR-1 Antibody Not Reportable, SS-A/Ro IgG Antibody Not Reportable, SS-B/La IgG Antibody Not Reportable, Sm (Ceballos) Antibody Not Reportable, EVENTS [employer]ER Antibody Not Reportable, Scl-70 Scleroderma Ab Not Reportable, Double Strand DNA Ab Not Reportable, Centromere B Antibody Not Reportable, Complement C3 131, Complement C4 32 01/02/23 11:16: POC Glucose 166 H 01/02/23 16:26: POC Glucose 188 H 01/02/23 20:46: POC Glucose 185 H 01/03/23 03:29: POC Glucose 145 H 01/03/23 03:30: WBC 12.7 H, RBC 3.33 L, Hgb 9.4 L, Hct 30.2 L, MCV 90.7, MCH 28.2, MCHC 31.1 L, RDW Std Deviation 56.7 H, RDW Coeff of Audi 17.0 H, Plt Count 152, MPV 9.6, Immature Gran % (Auto) 0.600, Neut % (Auto) 72.9 H, Lymph % (Auto) 11.7 L, [place] % (Auto) 9.0, Eos % (Auto) 5.3 H, Baso % (Auto) 0.5, Absolute Neuts (auto) 9.3 H, Absolute Lymphs (auto) 1.49, Nucleated RBC % 0, Sodium 140 01/03/23 03:30: Sodium 140, Potassium 4.3 01/03/23 03:30: Potassium 4.3, Chloride 108 H 01/03/23 03:30: Chloride 108 H, Carbon Dioxide 27.0 01/03/23 03:30: Carbon Dioxide 26.0, Anion Gap 6, BUN 53 H 01/03/23 03:30: BUN 53 H, Creatinine 4.11 H 01/03/23 03:30: Creatinine 4.08 H, Estim Creat Clear Calc 13.51 01/03/23 03:30: Estim Creat Clear Calc 13.61, Est GFR (MDRD) Af Amer 18 L 01/03/23 03:30: Est GFR (MDRD) Af Amer 19 L, Est GFR (MDRD) Non-Af 15 L 01/03/23 03:30: Est GFR (MDRD) Non-Af 15 L, BUN/Creatinine Ratio 12.9 01/03/23 03:30: BUN/Creatinine Ratio 13.0, Glucose 163 H 01/03/23 03:30: Glucose 161 H, Calcium 8.4 L 01/03/23 03:30: Calcium 8.4 L, Phosphorus 5.0 H, Albumin 2.3 L Micro: Microbiology 01/01/23 08:45 Sputum, Expectorated/Coughed Gram Stain - Final 01/01/23 08:45 Sputum, Expectorated/Coughed Respiratory Culture - Final Achromobacter xylosoxidans 12/30/22 16:33 Blood Culture (Wb) - Left Hand Blood Culture - Preliminary No growth in 48 hours. 12/30/22 16:33 Blood Culture (Wb) - Anticubital Left Blood Culture - Preliminary No growth in 48 hours. 12/30/22 17:25 Urine, Catheterized Urine Culture - Final Presumptive E. coli 12/31/22 03:40 Mucosa - Nose Respiratory Panel (PCR) - Final 12/31/22 04:30 Urine Catheter - Catheter Legionella Antigen - Final 12/31/22 04:30 Urine Catheter - Catheter Streptococcus pneumoniae Antigen (M - Final 12/31/22 03:00 Nasal Secretion SARS-CoV-2 Antigen (Rapid) - Final Physical Exam Const alert, oriented x3 and no apparent distress Constitutional Narrative: Obese male, lying comfortably in bed, slowed responses but answering all questions appropriately, no acute distress. General Appearance: cooperative and comfortable HEENT normocephalic, head/scalp atraumatic, hearing grossly normal bilaterally, nasal mucous membranes and turbinates normal and moist oral mucous membranes Eyes PERRL, EOMs intact bilaterally and conjunctivae normal Neck full ROM, no lymphadenopathy, supple and no JVD Lymph Lymphatic: no lymphadenopathy noted and no lymphedema noted Chest inspection of chest normal Resp normal respiratory effort, normal air movement, no use of accessory muscles and clear to auscultation bilaterally Cardio regular rate, regular rhythm, S1 normal heart sound, S2 normal heart sound, no murmurs and peripheral pulses 2+ throughout GI normal to inspection, nondistended, normoactive bowel sounds, soft to palpation, non-tender and non-distended Back/Spine normal ROM Extremity normal to inspection, full ROM, normal capillary refill, no clubbing, cyanosis or edema, no calf tenderness and no pedal edema Extremity Narrative: dialysis catheter in situ in chest Skin no rashes or lesions noted General Skin Exam: no breakdown and turgor normal Neuro CN's II-XII intact bilaterally, no focal motor deficits, no sensory deficits noted and deep tendon reflexes 2+ bilaterally Motor Exam: strength 5/5 throughout Psych mental status grossly normal, thought process normal, cooperative and affect normal Appearance: appropriate Assessment & Plan Assessment/Plan (1) Acute kidney injury: PLAN: Plan #JOHN with hyperkalemia * Cr on admissionw as 7.4. Cr is 4.08. * nephrology on board. Had CRRT over the weekend. * management as per nephrology * records requested from [facility] in [place] where patient usually goes to get care to evaluate his renal function. * hyperkalemia has resolved. * now on hemodialysis. To get dialysis today. * renal USG was negative * #Acute urinary retention: has Gonzalez catheter in place. On flomax #Community acquired pneumonia * thought to be due to Strep pneumoniae. * blood and sputum cultures pending. On rocephin and azithromycin. * titrate oxygen to maintain sats >90% * #Type 2 Diabetes mellitus with neuropathy * on lantus. ISS. Accuchecks ACHS * on gabapentin * #Hypertension: on carvedilol. #Hyperlipidemia: on statin #CAD: s/p CABG. On aspirin and statin as well as plavix. #Anemia: stable. Transfuse if Hb <7. Hb today is 9.4. #Depression; on sertraline. DVT prophylaxis: heparin Charges/Coding Visit Charges Inpatient E&M: 56578 Subs Hosp L2
[2023-01-03] MEDS: Carvedilol 3.125 MG TABLET PO ×2 (11:54→20:56)
[2023-01-03] MEDS: Heparin 10,000 UNITS/10 ML Vial IV (12:33)
[2023-01-03 14:09] LABS: Albumin 2.3 g/dL (2.9-4.4); Alpha-1-Globulins 0.3 g/dL (0.0-0.4); Alpha-2-Globulins 1.1 g/dL (0.4-1.0); Gamma Globulin 0.8 g/dL (0.4-1.8); Immunoglobulin A 433 mg/dL (61-437); Immunoglobulin G 914 mg/dL (603-1613); Immunoglobulin M 31 mg/dL (15-143); PROEL- TOTAL PROTEIN 5.4 g/dL (6.0-8.5)
[2023-01-03] MEDS: Aspirin E.C. 81 MG Tablet PO (14:21)
[2023-01-03] MEDS: Sertraline 100 MG Tablet PO (14:22)
[2023-01-03] MEDS: Clopidogrel Bisulfate 75 MG Tablet PO (14:22)
[2023-01-03] MEDS: Gabapentin 100 MG Capsule 200 MG PO (14:22)
[2023-01-03] MEDS: Menthol/Lanolin/Calamine/Znox 113 GM Tube 1 APPLIC TOPICAL ×2 (14:22→21:39)
[2023-01-03 14:46] LABS: Bedside Glucose 133 mg/dL (74-106)
[2023-01-03] MEDS: Atorvastatin Calcium 80 MG Tablet PO (20:56)
[2023-01-03] MEDS: Heparin Injection (Vial) 5,000 UNIT/ML VIAL 5000 UNIT SC (20:56)
[2023-01-03] MEDS: Insulin Lispro 100 UNIT/ML INSULN.PEN SC (20:56)
[2023-01-03 21:20] LABS: Bedside Glucose 219 mg/dL (74-106)
[2023-01-04 02:15] VITALS: BP 134/56; PULSE 85; RESP 20; TEMP 36.6; O2SAT 95
[2023-01-04 03:55] LABS: Absolute Lymphocyte Count 1.46 X10^3/uL (0.83-4.51); Absolute Neutrophil Count 8.6 X10^3/uL (2.0-7.7); Basophil# 0.06 X10^3/uL; Basophil% 0.5 % (0-1); Eosinophil# 0.87 X10^3/uL; Eosinophils% 7.2 % (0-5); Hematocrit 30.5 % (40-54); Hemoglobin 9.6 g/dL (13.0-16.5); Lymphocyte # 1.46 X10^3/ul (0.83-4.51); Lymphocyte % 12.1 % (19-41); Mean Corp Hgb Conc 31.5 g/dL (32-36); Mean Corpuscular Hgb 28.2 pg (27.0-32.0); Mean Corpuscular Volume 89.7 fL (80-94); Mean Platelet Vol. 10.6 fl (6.2-12.0); Monocyte# 1.07 X10^3/uL; Monocyte% 8.8 % (0-10); NRBC Flagged by Analyzer 0 % (0-5); Neutrophil # 8.58 X10^3/uL (2.7-7.7); Neutrophil % 70.8 % (47-70); Platelet Count 171 K/mm3 (150-450); RBC Distribution Width CV 16.9 % (11.6-14.6); RBC Distribution Width SD 55.2 fl (35.1-43.9); White Blood Count 12.1 K/mm3 (4.4-11.0)
[2023-01-04 04:03] LABS: Bedside Glucose 126 mg/dL (74-106)
[2023-01-04 04:10] LABS: Anion Gap 7 (5-15); BUN 43 mg/dL (7-18); BUN/Creat Ratio 12.5 RATIO (10-20); Calcium,Total 8.6 mg/dL (8.5-10.1); Chloride 107 mmol/L (98-107); Creatinine, Serum 3.45 mg/dL (0.70-1.30); EST Glomerular Filtration Rate 19 mL/min (>60); Est Glom Filt Rate - Afr Amer 22 mL/min (>60); Estimated Creatinine Clearance 16.09 ml/min; Glucose 155 mg/dL (74-106); Potassium 4.2 mmol/L (3.5-5.1); Sodium Level 140 mmol/L (136-145)
[2023-01-04] MEDS: HYDROcodone Bitartrate/Apap 5/325 Tablet PO ×3 (05:18→21:50)
[2023-01-04 07:26] VITALS: PULSE 88; RESP 18; O2SAT 98
[2023-01-04] MEDS: Budesonide Respules 0.5 MG/2 ML AMPUL.NEB. INHALATION ×2 (07:28→18:51)
--- NOTE | 2023-01-04 08:13 | PCM.PN.SRG ---
Subjective Subjective Tolerated dialysis yesterday --no issues with the dialysis catheter Objective Data Objective Data Vital Signs: Vital Signs Temp Pulse Resp BP Pulse Ox O2 Del Method O2 Flow Rate 98 F 85 20 H 134/56 H 95 Nasal Cannula 2 01/04/23 02:15 01/04/23 02:15 01/04/23 02:15 01/04/23 02:15 01/04/23 02:15 01/04/23 02:15 01/04/23 02:15 Oxygen Flow Rate (L/min) 2 Oxygen Delivery Method Nasal Cannula Weight: 164 lb 14.492 oz Body Mass Index (BMI) 27.4 Intake & Output: Intake and Output for Last 24 Hours 01/02/23 01/03/23 01/04/23 23:59 23:59 23:59 Intake Total 545 / 545 305 / 305 Output Total 1300 / 1300 2049 / 2049 350 / 350 Balance -755 / -755 -1745 / -1745 -350 / -350 Lab / Micro Data 01/04/23 03:40 01/04/23 03:40 Labs: Laboratory Results - last 24 hr 12/31/22 13:29: Total Protein (PEP) 5.4 L, Globulin 3.1, IgG 914, IgA 433, IgM 31, Immunofixation Screen Comment, Albumin (JEMMA) 2.3 L, Albumin/Globulin (JEMMA) 0.8, Deejn-5-Vjxdztmjr JEMMA 0.3, Ihpgu-4-Vuhfzqauq JEMMA 1.1 H, Beta-Globulins (JEMMA) 0.9, Gamma Globulins (JEMMA) 0.8, JEMMA M-Delvis , JEMMA Comments Comment 01/03/23 14:11: POC Glucose 133 H 01/03/23 20:51: POC Glucose 219 H 01/04/23 03:37: POC Glucose 126 H 01/04/23 03:40: WBC 12.1 H, RBC 3.40 L, Hgb 9.6 L, Hct 30.5 L, MCV 89.7, MCH 28.2, MCHC 31.5 L, RDW Std Deviation 55.2 H, RDW Coeff of Audi 16.9 H, Plt Count 171, MPV 10.6, Immature Gran % (Auto) 0.600, Neut % (Auto) 70.8 H, Lymph % (Auto) 12.1 L, [place] % (Auto) 8.8, Eos % (Auto) 7.2 H, Baso % (Auto) 0.5, Absolute Neuts (auto) 8.6 H, Absolute Lymphs (auto) 1.46, Nucleated RBC % 0, Sodium 140, Potassium 4.2, Chloride 107, Carbon Dioxide 26.0, Anion Gap 7, BUN 43 H, Creatinine 3.45 H, Estim Creat Clear Calc 16.09, Est GFR (MDRD) Af Amer 22 L, Est GFR (MDRD) Non-Af 19 L, BUN/Creatinine Ratio 12.5, Glucose 155 H, Calcium 8.6 Micro: Microbiology 01/01/23 08:45 Sputum, Expectorated/Coughed Gram Stain - Final 01/01/23 08:45 Sputum, Expectorated/Coughed Respiratory Culture - Final Achromobacter xylosoxidans 12/30/22 16:33 Blood Culture (Wb) - Left Hand Blood Culture - Preliminary No growth in 48 hours. 12/30/22 16:33 Blood Culture (Wb) - Anticubital Left Blood Culture - Preliminary No growth in 48 hours. 12/30/22 17:25 Urine, Catheterized Urine Culture - Final Presumptive E. coli 12/31/22 03:40 Mucosa - Nose Respiratory Panel (PCR) - Final 12/31/22 04:30 Urine Catheter - Catheter Legionella Antigen - Final 12/31/22 04:30 Urine Catheter - Catheter Streptococcus pneumoniae Antigen (M - Final 12/31/22 03:00 Nasal Secretion SARS-CoV-2 Antigen (Rapid) - Final Physical Exam Narrative right IJ dialysis catheter in place Resp normal respiratory effort Cardio regular rate Assessment & Plan Assessment/Plan (1) Acute hyperkalemia: (2) Acute kidney injury: PLAN: Plan We will continue to follow. I will be out on Monday and Monday one of my partners will be covering. Alix Koenig M.D. Pager: [phone] [facility] [address] [place] [address], [facility], [address] [place] [id number] Office: [phone]
[2023-01-04 08:15] VITALS: BP 134/85; PULSE 84; RESP 15; TEMP 36.3; O2SAT 96
[2023-01-04] MEDS: Insulin Lispro 100 UNIT/ML INSULN.PEN SC ×3 (08:16→21:51)
[2023-01-04] MEDS: Carvedilol 3.125 MG TABLET PO ×2 (08:17→21:50)
[2023-01-04] MEDS: Gabapentin 100 MG Capsule 200 MG PO ×3 (08:17→17:18)
[2023-01-04] MEDS: Heparin Injection (Vial) 5,000 UNIT/ML VIAL 5000 UNIT SC ×2 (08:17→21:50)
[2023-01-04] MEDS: Aspirin E.C. 81 MG Tablet PO (08:17)
[2023-01-04] MEDS: Menthol/Lanolin/Calamine/Znox 113 GM Tube 1 APPLIC TOPICAL ×2 (08:18→21:49)
[2023-01-04] MEDS: Clopidogrel Bisulfate 75 MG Tablet PO (08:18)
[2023-01-04] MEDS: Sertraline 100 MG Tablet PO (08:18)
--- NOTE | 2023-01-04 10:47 | PN_ITS ---
Subjective Subjective Patient seen and examined. He had no complaints. He had an uneventful night. Review of systems is otherwise negative. He has remained hemodynamically stable. Objective Data Objective Data Vital Signs: Vital Signs Temp Pulse Resp BP Pulse Ox O2 Del Method O2 Flow Rate 97.3 F L 84 15 134/85 H 96 Nasal Cannula 2 01/04/23 08:15 01/04/23 08:15 01/04/23 08:15 01/04/23 08:15 01/04/23 08:15 01/04/23 09:00 01/04/23 09:00 Oxygen Flow Rate (L/min) 2 Oxygen Delivery Method Nasal Cannula Weight: 164 lb 14.492 oz Body Mass Index (BMI) 27.4 Intake & Output: Intake and Output for Last 24 Hours 01/02/23 01/03/23 01/04/23 23:59 23:59 23:59 Intake Total 545 / 545 305 / 305 Output Total 1300 / 1300 2050 / 2050 350 / 350 Balance -755 / -755 -1745 / -1745 -350 / -350 Lab / Micro Data 01/04/23 03:40 01/04/23 03:40 Labs: Laboratory Results - last 24 hr 12/31/22 13:29: Total Protein (PEP) 5.4 L, Globulin 3.1, IgG 914, IgA 433, IgM 31, Immunofixation Screen Comment, Albumin (JEMMA) 2.3 L, Albumin/Globulin (JEMMA) 0.8, Iplzm-0-Hvkxvhynx JEMMA 0.3, Cnvwe-1-Ttkaulxef JEMMA 1.1 H, Beta-Globulins (JEMMA) 0.9, Gamma Globulins (JEMMA) 0.8, JEMMA M-Delvis , JEMMA Comments Comment 01/03/23 14:11: POC Glucose 133 H 01/03/23 20:51: POC Glucose 219 H 01/04/23 03:37: POC Glucose 126 H 01/04/23 03:40: WBC 12.1 H, RBC 3.40 L, Hgb 9.6 L, Hct 30.5 L, MCV 89.7, MCH 28.2, MCHC 31.5 L, RDW Std Deviation 55.2 H, RDW Coeff of Audi 16.9 H, Plt Count 171, MPV 10.6, Immature Gran % (Auto) 0.600, Neut % (Auto) 70.8 H, Lymph % (Auto) 12.1 L, [place] % (Auto) 8.8, Eos % (Auto) 7.2 H, Baso % (Auto) 0.5, Absolute Neuts (auto) 8.6 H, Absolute Lymphs (auto) 1.46, Nucleated RBC % 0, Sodium 140, Potassium 4.2, Chloride 107, Carbon Dioxide 26.0, Anion Gap 7, BUN 43 H, Creatinine 3.45 H, Estim Creat Clear Calc 16.09, Est GFR (MDRD) Af Amer 22 L, Est GFR (MDRD) Non-Af 19 L, BUN/Creatinine Ratio 12.5, Glucose 155 H, Calcium 8.6 Micro: Microbiology 01/01/23 08:45 Sputum, Expectorated/Coughed Gram Stain - Final 01/01/23 08:45 Sputum, Expectorated/Coughed Respiratory Culture - Final Achromobacter xylosoxidans 12/30/22 16:33 Blood Culture (Wb) - Left Hand Blood Culture - Preliminary No growth in 48 hours. 12/30/22 16:33 Blood Culture (Wb) - Anticubital Left Blood Culture - Preliminary No growth in 48 hours. 12/30/22 17:25 Urine, Catheterized Urine Culture - Final Presumptive E. coli 12/31/22 03:40 Mucosa - Nose Respiratory Panel (PCR) - Final 12/31/22 04:30 Urine Catheter - Catheter Legionella Antigen - Final 12/31/22 04:30 Urine Catheter - Catheter Streptococcus pneumoniae Antigen (M - Final 12/31/22 03:00 Nasal Secretion SARS-CoV-2 Antigen (Rapid) - Final Physical Exam Const alert, oriented x3 and no apparent distress General Appearance: cooperative and comfortable HEENT normocephalic, head/scalp atraumatic, hearing grossly normal bilaterally, nasal mucous membranes and turbinates normal and moist oral mucous membranes Eyes PERRL, EOMs intact bilaterally and conjunctivae normal Neck full ROM, no lymphadenopathy, supple and no JVD Lymph Lymphatic: no lymphadenopathy noted and no lymphedema noted Chest inspection of chest normal Resp normal respiratory effort, normal air movement, no use of accessory muscles and clear to auscultation bilaterally Cardio regular rate, regular rhythm, S1 normal heart sound, S2 normal heart sound, no murmurs and peripheral pulses 2+ throughout GI normal to inspection, nondistended, normoactive bowel sounds, soft to palpation, non-tender and non-distended Back/Spine normal ROM Extremity normal to inspection, full ROM, normal capillary refill, no clubbing, cyanosis or edema, no calf tenderness and no pedal edema Extremity Narrative: dialysis catheter in situ in chest Skin no rashes or lesions noted General Skin Exam: no breakdown and turgor normal Neuro CN's II-XII intact bilaterally, no focal motor deficits, no sensory deficits noted and deep tendon reflexes 2+ bilaterally Motor Exam: strength 5/5 throughout Psych mental status grossly normal, thought process normal, cooperative and affect normal Appearance: appropriate Assessment & Plan Assessment/Plan (1) Acute kidney injury: PLAN: Plan #JOHN with hyperkalemia * Cr on admissionw as 7.4. Cr is 3.45 today * nephrology on board. Had CRRT over the weekend. * management as per nephrology * records requested from [facility] in [place] where patient usually goes to get care to evaluate his renal function. * hyperkalemia has resolved. * now on hemodialysis.Had dialysis yesterday; per nephro no dialysis today. * renal USG was negative for any acute renal pathology * #Acute urinary retention: has Gonzalez catheter in place. On flomax #Community acquired pneumonia * thought to be due to Strep pneumoniae. * blood and sputum cultures pending. On rocephin and azithromycin. * titrate oxygen to maintain sats >90% * #Type 2 Diabetes mellitus with neuropathy * on lantus. ISS. Accuchecks ACHS * on gabapentin * #Hypertension: on carvedilol. #Hyperlipidemia: on statin #CAD: s/p CABG. On aspirin and statin as well as plavix. #Anemia: stable. Transfuse if Hb <7. Hb today is 9.6. #Depression; on sertraline. DVT prophylaxis: heparin Charges/Coding Visit Charges Inpatient E&M: 39684 Subs Hosp L2
--- NOTE | 2023-01-04 11:17 | PCM.PN.REN ---
Subjective Subjective no new complaints. says he was wiped out after HD yesterday. urine output has improved. Objective Data Objective Data Vital Signs: Vital Signs Temp Pulse Resp BP Pulse Ox O2 Del Method O2 Flow Rate 97.3 F L 84 15 134/85 H 96 Nasal Cannula 2 01/04/23 08:15 01/04/23 08:15 01/04/23 08:15 01/04/23 08:15 01/04/23 08:15 01/04/23 09:00 01/04/23 09:00 Oxygen Flow Rate (L/min) 2 Oxygen Delivery Method Nasal Cannula Weight: 74.8 kg Body Mass Index (BMI) 27.4 Intake & Output: Intake and Output for Last 24 Hours 01/02/23 01/03/23 01/04/23 23:59 23:59 23:59 Intake Total 545 / 545 305 / 305 Output Total 1300 / 1300 2049 / 2049 350 / 350 Balance -755 / -755 -1745 / -1745 -350 / -350 Lab / Micro Data 01/04/23 03:40 01/04/23 03:40 Labs: Laboratory Results - last 24 hr 12/31/22 13:29: Total Protein (PEP) 5.4 L, Globulin 3.1, IgG 914, IgA 433, IgM 31, Immunofixation Screen Comment, Albumin (JEMMA) 2.3 L, Albumin/Globulin (JEMMA) 0.8, Rqpva-9-Cydsxydza JEMMA 0.3, Qtoid-4-Pimqnyqrz JEMMA 1.1 H, Beta-Globulins (JEMMA) 0.9, Gamma Globulins (JEMMA) 0.8, JEMMA M-Delvis , JEMMA Comments Comment 01/03/23 14:11: POC Glucose 133 H 01/03/23 20:51: POC Glucose 219 H 01/04/23 03:37: POC Glucose 126 H 01/04/23 03:40: WBC 12.1 H, RBC 3.40 L, Hgb 9.6 L, Hct 30.5 L, MCV 89.7, MCH 28.2, MCHC 31.5 L, RDW Std Deviation 55.2 H, RDW Coeff of Audi 16.9 H, Plt Count 171, MPV 10.6, Immature Gran % (Auto) 0.600, Neut % (Auto) 70.8 H, Lymph % (Auto) 12.1 L, [place] % (Auto) 8.8, Eos % (Auto) 7.2 H, Baso % (Auto) 0.5, Absolute Neuts (auto) 8.6 H, Absolute Lymphs (auto) 1.46, Nucleated RBC % 0, Sodium 140, Potassium 4.2, Chloride 107, Carbon Dioxide 26.0, Anion Gap 7, BUN 43 H, Creatinine 3.45 H, Estim Creat Clear Calc 16.09, Est GFR (MDRD) Af Amer 22 L, Est GFR (MDRD) Non-Af 19 L, BUN/Creatinine Ratio 12.5, Glucose 155 H, Calcium 8.6 Micro: Microbiology 01/01/23 08:45 Sputum, Expectorated/Coughed Gram Stain - Final 01/01/23 08:45 Sputum, Expectorated/Coughed Respiratory Culture - Final Achromobacter xylosoxidans 12/30/22 16:33 Blood Culture (Wb) - Left Hand Blood Culture - Preliminary No growth in 48 hours. 12/30/22 16:33 Blood Culture (Wb) - Anticubital Left Blood Culture - Preliminary No growth in 48 hours. 12/30/22 17:25 Urine, Catheterized Urine Culture - Final Presumptive E. coli 12/31/22 03:40 Mucosa - Nose Respiratory Panel (PCR) - Final 12/31/22 04:30 Urine Catheter - Catheter Legionella Antigen - Final 12/31/22 04:30 Urine Catheter - Catheter Streptococcus pneumoniae Antigen (M - Final 12/31/22 03:00 Nasal Secretion SARS-CoV-2 Antigen (Rapid) - Final Physical Exam Narrative Alert and oriented x3, no apparent distress S1, S2, RRR Lung sounds clear Abdomen soft, nontender No edema Bull with clear urine in bag Right IJ non-tunneled HD catheter dressing clean, dry and intact Const Constitutional Narrative: Patient answers simple questions, but has myoclonic jerks and somewhat lethargic General Appearance: well developed Orientation / Consciousness: oriented to person HEENT normocephalic Eyes PERRL Neck no lymphadenopathy Resp Auscultation: crackles right and wheezes GI Auscultation: normoactive bowel sounds Bladder / Kidney Exam: catheter in place Skin no rashes or lesions noted Neuro Sensorium / Orientation: lethargic Psych Memory / Cognition: cognition impaired Assessment & Plan Assessment/Plan (1) Acute hyperkalemia: (2) Acute kidney injury: PLAN: 77-year-old male with past medical history significant for diabetes mellitus type 2, CAD status post CABG x1, COPD not on home O2, hypertension and CKD followed by the [facility] who presented to the emergency room on 12/30 with complaints of generalized weakness. Nephrology consulted for JOHN and hyperkalemia -JOHN superimposed on CKD stage IIIb (SCr 2.05 November 2022). Serum creatinine on admission 7.40 mg/dL. -Because of JOHN, uremia and hyperkalemia (bicarb 16, K+ peaked 7.4) patient was started on CRRT 12/31 via femoral line. Femoral line was sluggish not functioning well for CRRT therefore femoral line removed and non-tunneled right IJ temporary HD catheter placed. Patient was taken off of CRRT 01/01 at 1050. - Serologies ordered: YARELI, p-ANCA, c-ANCA negative, complements normal, SPEP negative. UPC 1394mg/g. Renal US no hydro. CXR clear. - urinary retention s/p bull placed -urine output somewhat better. monitor for recovery. likely ATN. will assess for dialysis tomorrow again - pneumonia on antibiotics.
[2023-01-04 13:31] VITALS: BP 124/54; PULSE 88; RESP 20; TEMP 36.7; O2SAT 96
[2023-01-04 18:51] VITALS: PULSE 84; RESP 20
[2023-01-04] MEDS: Albuterol 2.5 MG/3 ML VIAL.NEB. INHALATION (18:51)
[2023-01-04 19:35] LABS: Bedside Glucose 169 mg/dL (74-106)
[2023-01-04 20:00] VITALS: BP 116/46; PULSE 81; RESP 19; TEMP 36; O2SAT 96
[2023-01-04] MEDS: Atorvastatin Calcium 80 MG Tablet PO (21:50)
[2023-01-04 22:24] LABS: Bedside Glucose 254 mg/dL (74-106)
[2023-01-05] VITALS (12 sets, daily range): BP systolic 114–149; BP diastolic 48–70; PULSE 76–91; RESP 13–20; TEMP 35.8–36.8; O2SAT 91–100
[2023-01-05] MEDS: Insulin Lispro 100 UNIT/ML INSULN.PEN SC ×4 (03:08→22:19)
[2023-01-05 03:27] LABS: Absolute Lymphocyte Count 1.88 X10^3/uL (0.83-4.51); Absolute Neutrophil Count 7.2 X10^3/uL (2.0-7.7); Basophil# 0.04 X10^3/uL; Basophil% 0.4 % (0-1); Eosinophil# 0.76 X10^3/uL; Eosinophils% 6.9 % (0-5); Hematocrit 29.5 % (40-54); Lymphocyte # 1.88 X10^3/ul (0.83-4.51); Lymphocyte % 17.1 % (19-41); Mean Corp Hgb Conc 30.5 g/dL (32-36); Mean Corpuscular Hgb 27.8 pg (27.0-32.0); Mean Platelet Vol. 10.2 fl (6.2-12.0); Monocyte# 1.04 X10^3/uL; Monocyte% 9.5 % (0-10); NRBC Flagged by Analyzer 0 % (0-5); Neutrophil # 7.23 X10^3/uL (2.7-7.7); Neutrophil % 65.6 % (47-70); Platelet Count 176 K/mm3 (150-450); RBC Distribution Width CV 16.7 % (11.6-14.6); RBC Distribution Width SD 55.8 fl (35.1-43.9); Red Blood Count 3.24 M/mm3 (4.6-6.2)
[2023-01-05 03:34] LABS: Bedside Glucose 163 mg/dL (74-106)
[2023-01-05] MEDS: HYDROcodone Bitartrate/Apap 5/325 Tablet PO ×3 (05:27→22:19)
[2023-01-05] MEDS: 0.9% Saline Lock 10 ML Syringe IV (05:28)
--- NOTE | 2023-01-05 07:07 | PN.HOSP_ITS ---
Reason for Visit Reason for Visit: Diagnoses Hyperkalemia (12/30/22) Acute kidney failure, unspecified (12/30/22) Subjective Subjective Decreased sats today. Objective Data Objective Data Vital Signs: Vital Signs Temp Pulse Resp BP Pulse Ox O2 Del Method O2 Flow Rate 36.0 C L 78 15 147/67 H 94 Nasal Cannula 2 01/05/23 02:00 01/05/23 02:00 01/05/23 02:00 01/05/23 02:00 01/05/23 02:00 01/05/23 03:00 01/05/23 03:00 Oxygen Flow Rate (L/min) 2 Oxygen Delivery Method Nasal Cannula Weight: 74.8 kg Body Mass Index (BMI) 27.4 Intake & Output: Intake and Output for Last 24 Hours 01/03/23 01/04/23 01/05/23 23:59 23:59 23:59 Intake Total 305 / 305 305 / 305 Output Total 2050 / 2050 700 / 1000 900 / 900 Balance -1745 / -1745 -395 / -695 -900 / -900 Lab / Micro Data 01/05/23 03:15 01/05/23 03:15 Labs: Laboratory Results - last 24 hr 01/04/23 17:17: POC Glucose 169 H 01/04/23 21:47: POC Glucose 254 H 01/05/23 03:01: POC Glucose 163 H 01/05/23 03:15: WBC 11.0, RBC 3.24 L, Hgb 9.0 L, Hct 29.5 L, MCV 91.0, MCH 27.8, MCHC 30.5 L, RDW Std Deviation 55.8 H, RDW Coeff of Audi 16.7 H, Plt Count 176, MPV 10.2, Immature Gran % (Auto) 0.500, Neut % (Auto) 65.6, Lymph % (Auto) 17.1 L, [place] % (Auto) 9.5, Eos % (Auto) 6.9 H, Baso % (Auto) 0.4, Absolute Neuts (auto) 7.2, Absolute Lymphs (auto) 1.88, Nucleated RBC % 0 Micro: Microbiology 12/30/22 16:33 Blood Culture (Wb) - Anticubital Left Blood Culture - Final No growth in 5 days. 12/30/22 16:33 Blood Culture (Wb) - Left Hand Blood Culture - Final No growth in 5 days. 01/01/23 08:45 Sputum, Expectorated/Coughed Gram Stain - Final 01/01/23 08:45 Sputum, Expectorated/Coughed Respiratory Culture - Final Achromobacter xylosoxidans 12/30/22 17:25 Urine, Catheterized Urine Culture - Final Presumptive E. coli 12/31/22 03:40 Mucosa - Nose Respiratory Panel (PCR) - Final 12/31/22 04:30 Urine Catheter - Catheter Legionella Antigen - Final 12/31/22 04:30 Urine Catheter - Catheter Streptococcus pneumoniae Antigen (M - Final 12/31/22 03:00 Nasal Secretion SARS-CoV-2 Antigen (Rapid) - Final Physical Exam Const alert and no apparent distress Neck Neck Narrative: subtle JVD. Resp Resp Narrative: diminished BS Cardio regular rate, regular rhythm, S1 normal heart sound and S2 normal heart sound GI normal to inspection, nondistended, normoactive bowel sounds, soft to palpation, non-tender and non-distended Extremity Extremity Narrative: non-pitting LE edema. Assessment & Plan Assessment/Plan (1) Acute kidney injury: PLAN: 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 Admission creatinine 7.4. Started on CRRT on 12/31 w femoral line. Transitioned to RIJ temporary HD catheter placed and CRRT completed on 01/01. Transitioned to HD Immunology work up unremarkable Kidney US negative. If tunneled catheter needed, will need to hold clopidogrel. Received 01/05. Curr ently on hold. (2) Acute urinary obstruction: PLAN: Acute urinary retention: has Gonzalez catheter in place. On flomax (3) Pneumonia: QUALIFIERS: Laterality: unspecified laterality Lung location: unspecified part of lung Pneumonia type: due to unspecified organism Qualified Code(s): J18.9 - Pneumonia, unspecified organism PLAN: Doubt true infection. SCx positive for Achromobacter xylosoxidans (Gram negative), sensitive to TMP/SMX CXR on 12/31 negative for infiltrate Repeat CXR not suggestive of pneumonia on 01/05 (4) UTI (urinary tract infection): QUALIFIERS: Hematuria presence: without hematuria Urinary tract infection type: acute cystitis Qualified Code(s): N30.00 - Acute cystitis without hematuria PLAN: E. coli, chin-sensitive on UCx Continue CTX () (5) COPD exacerbation: PLAN: Continue BDs Add methylprednisolone. 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 ISS. Accuchecks ACHS.on gabapentin * hypertension: on carvedilol. * Hyperlipidemia: on statin * CAD: s/p CABG. On aspirin and statin. Clopidogrel held. * Anemia: stable. Transfuse if Hb <7. Hb today is 9.6. * Depression; on sertraline. DVT prophylaxis: heparin Charges/Coding Visit Charges Inpatient E&M: 36905 Subs Hosp L2
--- NOTE | 2023-01-05 07:55 | RAD_ITS ---
STUDY: X-RAY CHEST REASON FOR EXAM: Male, 77 years old. Fever and cough TECHNIQUE: Single AP portable view of the chest. COMPARISON: 12/31/2022 FINDINGS: EKG leads overlie the chest. Stable appearance of the right IJ central venous catheter. Chronic interstitial changes in both lung harmon with persistent superimposed interstitial edema and opacification the right cardiophrenic angle, likely atelectasis or early infiltrate. No demonstrated effusion. Follow-up recommended to ensure resolution Sternal cerclage wires and vascular clips are present from a prior sternotomy and coronary artery bypass graft procedure (CABG). Normal mediastinum and loco. Normal visualized pulmonary arteries. Normal visualized aortic arch and descending thoracic aorta. Normal visualized thoracic spine. Normal visualized ribs, clavicles, and shoulders. There is no demonstrated abnormality of the visualized soft tissue structures of the upper abdomen. RAD/Chest PA and Lateral IMPRESSION: Chronic interstitial changes with persistent interstitial edema and opacification in the right cardiophrenic angle likely atelectasis or early infiltrate. Electronically Signed: Rodríguez Hector MD at 8:19 EDT ,
[2023-01-05] MEDS: Aspirin E.C. 81 MG Tablet PO (08:21)
[2023-01-05] MEDS: Budesonide Respules 0.5 MG/2 ML AMPUL.NEB. INHALATION ×2 (08:31→18:59)
[2023-01-05] MEDS: Albuterol 2.5 MG/3 ML VIAL.NEB. INHALATION ×2 (08:31→10:47)
--- NOTE | 2023-01-05 08:42 | PCM.PN.SRG ---
Subjective Subjective no dialysis today- planning for tomorrow Objective Data Objective Data Vital Signs: Vital Signs Temp Pulse Resp BP Pulse Ox O2 Del Method O2 Flow Rate 96.5 F L 84 20 H 132/56 H 93 Nasal Cannula 2 01/05/23 07:34 01/05/23 07:34 01/05/23 07:34 01/05/23 07:34 01/05/23 07:34 01/05/23 07:34 01/05/23 07:34 Oxygen Flow Rate (L/min) 2 Oxygen Delivery Method Nasal Cannula Weight: 164 lb 14.492 oz Body Mass Index (BMI) 27.4 Intake & Output: Intake and Output for Last 24 Hours 01/03/23 01/04/23 01/05/23 23:59 23:59 23:59 Intake Total 305 / 305 305 / 305 21.25 / 21.25 Output Total 2049 / 2049 700 / 1000 900 / 900 Balance -1745 / -1745 -395 / -695 -878.75 / -878.75 Lab / Micro Data 01/05/23 03:15 01/05/23 03:15 Labs: Laboratory Results - last 24 hr 01/04/23 17:17: POC Glucose 169 H 01/04/23 21:47: POC Glucose 254 H 01/05/23 03:01: POC Glucose 163 H 01/05/23 03:15: WBC 11.0, RBC 3.24 L, Hgb 9.0 L, Hct 29.5 L, MCV 91.0, MCH 27.8, MCHC 30.5 L, RDW Std Deviation 55.8 H, RDW Coeff of Audi 16.7 H, Plt Count 176, MPV 10.2, Immature Gran % (Auto) 0.500, Neut % (Auto) 65.6, Lymph % (Auto) 17.1 L, [place] % (Auto) 9.5, Eos % (Auto) 6.9 H, Baso % (Auto) 0.4, Absolute Neuts (auto) 7.2, Absolute Lymphs (auto) 1.88, Nucleated RBC % 0 Micro: Microbiology 12/30/22 16:33 Blood Culture (Wb) - Anticubital Left Blood Culture - Final No growth in 5 days. 12/30/22 16:33 Blood Culture (Wb) - Left Hand Blood Culture - Final No growth in 5 days. 01/01/23 08:45 Sputum, Expectorated/Coughed Gram Stain - Final 01/01/23 08:45 Sputum, Expectorated/Coughed Respiratory Culture - Final Achromobacter xylosoxidans 12/30/22 17:25 Urine, Catheterized Urine Culture - Final Presumptive E. coli 12/31/22 03:40 Mucosa - Nose Respiratory Panel (PCR) - Final 12/31/22 04:30 Urine Catheter - Catheter Legionella Antigen - Final 12/31/22 04:30 Urine Catheter - Catheter Streptococcus pneumoniae Antigen (M - Final 12/31/22 03:00 Nasal Secretion SARS-CoV-2 Antigen (Rapid) - Final Radiography Diagnostic Testing: Radiology Impression Chest X-Ray 01/05/23 07:55 IMPRESSION: Chronic interstitial changes with persistent interstitial edema and opacification in the right cardiophrenic angle likely atelectasis or early infiltrate. Electronically Signed: Rodríguez Hector MD at 8:19 EDT , Physical Exam Narrative right IJ dialysis catheter in place Resp normal respiratory effort Cardio regular rate Assessment & Plan Assessment/Plan (1) Acute hyperkalemia: (2) Acute kidney injury: PLAN: Plan We will continue to follow. I will be out on Monday and Monday Dr. Harrington will be covering. I would be able to place a tunneled dialysis catheter on Monday or after --Plavix currently being held Alix Koenig M.D. Pager: [phone] [facility] [address] [place] [address], [facility], [address] [place] [address] Office: [phone] Charges/Coding Visit Charges Inpatient E&M: 89993 Subs Hosp L2
[2023-01-05 08:47] LABS: Bedside Glucose 148 mg/dL (74-106)
[2023-01-05 09:10] LABS: Anion Gap 6 (5-15); BUN 55 mg/dL (7-18); BUN/Creat Ratio 13.8 RATIO (10-20); Calcium,Total 8.6 mg/dL (8.5-10.1); Chloride 107 mmol/L (98-107); Creatinine, Serum 3.98 mg/dL (0.70-1.30); EST Glomerular Filtration Rate 16 mL/min (>60); Est Glom Filt Rate - Afr Amer 19 mL/min (>60); Estimated Creatinine Clearance 13.95 ml/min; Glucose 183 mg/dL (74-106); Sodium Level 140 mmol/L (136-145)
[2023-01-05] MEDS: Gabapentin 100 MG Capsule 200 MG PO ×3 (10:06→16:57)
[2023-01-05] MEDS: Carvedilol 3.125 MG TABLET PO ×2 (10:06→22:54)
[2023-01-05] MEDS: Sertraline 100 MG Tablet PO (10:06)
[2023-01-05] MEDS: Heparin Injection (Vial) 5,000 UNIT/ML VIAL 5000 UNIT SC ×2 (10:06→22:18)
[2023-01-05] MEDS: Clopidogrel Bisulfate 75 MG Tablet PO (10:06)
[2023-01-05] MEDS: Menthol/Lanolin/Calamine/Znox 113 GM Tube 1 APPLIC TOPICAL ×2 (10:07→22:17)
[2023-01-05] MEDS: Methylprednisolone Sod Succ 40 MG/ML VIAL IV ×2 (12:16→22:18)
[2023-01-05 12:18] LABS: Bedside Glucose 228 mg/dL (74-106)
--- NOTE | 2023-01-05 15:00 | PN.RENAL_ITS ---
Subjective Subjective no new complanints urine output is good Objective Data Objective Data Vital Signs: Vital Signs Temp Pulse Resp BP Pulse Ox O2 Del Method O2 Flow Rate 97.5 F L 76 18 146/70 H 100 Venturi Mask 6 01/05/23 12:58 01/05/23 12:58 01/05/23 12:58 01/05/23 12:58 01/05/23 12:58 01/05/23 12:58 01/05/23 12:58 FiO2 31 01/05/23 11:24 Oxygen Flow Rate (L/min) 6 Oxygen Delivery Method Venturi Mask Weight: 74.8 kg Body Mass Index (BMI) 27.4 Intake & Output: Intake and Output for Last 24 Hours 01/03/23 01/04/23 01/05/23 23:59 23:59 23:59 Intake Total 305 / 305 305 / 305 21.25 / 21.25 Output Total 2049 / 2049 700 / 1000 1200 / 1200 Balance -1745 / -1745 -395 / -695 -1178.75 / -1178.75 Lab / Micro Data 01/05/23 03:15 01/05/23 03:15 Labs: Laboratory Results - last 24 hr 01/04/23 17:17: POC Glucose 169 H 01/04/23 21:47: POC Glucose 254 H 01/05/23 03:01: POC Glucose 163 H 01/05/23 03:15: WBC 11.0, RBC 3.24 L, Hgb 9.0 L, Hct 29.5 L, MCV 91.0, MCH 27.8, MCHC 30.5 L, RDW Std Deviation 55.8 H, RDW Coeff of Audi 16.7 H, Plt Count 176, MPV 10.2, Immature Gran % (Auto) 0.500, Neut % (Auto) 65.6, Lymph % (Auto) 17.1 L, [place] % (Auto) 9.5, Eos % (Auto) 6.9 H, Baso % (Auto) 0.4, Absolute Neuts (auto) 7.2, Absolute Lymphs (auto) 1.88, Nucleated RBC % 0, Sodium 140, Potassium 4.0, Chloride 107, Carbon Dioxide 27.0, Anion Gap 6, BUN 55 H, Creati nine 3.98 H, Estim Creat Clear Calc 13.95, Est GFR (MDRD) Af Amer 19 L, Est GFR (MDRD) Non-Af 16 L, BUN/Creatinine Ratio 13.8, Glucose 183 H, Calcium 8.6 01/05/23 08:25: POC Glucose 148 H 01/05/23 12:00: POC Glucose 228 H Micro: Microbiology 12/30/22 16:33 Blood Culture (Wb) - Anticubital Left Blood Culture - Final No growth in 5 days. 12/30/22 16:33 Blood Culture (Wb) - Left Hand Blood Culture - Final No growth in 5 days. 01/01/23 08:45 Sputum, Expectorated/Coughed Gram Stain - Final 01/01/23 08:45 Sputum, Expectorated/Coughed Respiratory Culture - Final Achromobacter xylosoxidans 12/30/22 17:25 Urine, Catheterized Urine Culture - Final Presumptive E. coli 12/31/22 03:40 Mucosa - Nose Respiratory Panel (PCR) - Final 12/31/22 04:30 Urine Catheter - Catheter Legionella Antigen - Final 12/31/22 04:30 Urine Catheter - Catheter Streptococcus pneumoniae Antigen (M - Final 12/31/22 03:00 Nasal Secretion SARS-CoV-2 Antigen (Rapid) - Final Radiography Diagnostic Testing: Radiology Impression Chest X-Ray 01/05/23 07:55 IMPRESSION: Chronic interstitial changes with persistent interstitial edema and opacification in the right cardiophrenic angle likely atelectasis or early infiltrate. Electronically Signed: Rodríguez Hector MD at 8:19 EDT Reading Location ID and State: [address] [place] [address] , Service support , Physical Exam Narrative Alert and oriented x3, no apparent distress S1, S2, RRR Lung sounds clear Abdomen soft, nontender No edema Bull with clear urine in bag Right IJ non-tunneled HD catheter dressing clean, dry and intact Const Constitutional Narrative: Patient answers simple questions, but has myoclonic jerks and somewhat lethargic General Appearance: well developed Orientation / Consciousness: oriented to person HEENT normocephalic Eyes PERRL Neck no lymphadenopathy Resp Auscultation: crackles right and wheezes GI Auscultation: normoactive bowel sounds Bladder / Kidney Exam: catheter in place Skin no rashes or lesions noted Neuro Sensorium / Orientation: lethargic Psych Memory / Cognition: cognition impaired Assessment & Plan Assessment/Plan (1) Acute hyperkalemia: (2) Acute kidney injury: PLAN: 77-year-old male with past medical history significant for diabetes mellitus type 2, CAD status post CABG x1, COPD not on home O2, hypertension and CKD followed by the [place] who presented to the emergency room on 12/30 with complaints of generalized weakness. Nephrology consulted for JOHN and hyperkalemia -JOHN superimposed on CKD stage IIIb (SCr 2.05 November 2022). Serum creatinine on admission 7.40 mg/dL. -Because of JOHN, uremia and hyperkalemia (bicarb 16, K+ peaked 7.4) patient was started on CRRT 12/31 via femoral line. Femoral line was sluggish not functioning well for CRRT therefore femoral line removed and non-tunneled right IJ temporary HD catheter placed. Patient was taken off of CRRT 01/01 at 1050. - Serologies ordered: YARELI, p-ANCA, c-ANCA negative, complements normal, SPEP negative. UPC 1394mg/g. Renal US no hydro. CXR clear. - urinary retention s/p bull placed -urine output somewhat better. monitor for recovery. likely ATN. hold HD today. - pneumonia on antibiotics.
[2023-01-05 17:38] LABS: Bedside Glucose 260 mg/dL (74-106)
[2023-01-05 20:39] LABS: Bedside Glucose 296 mg/dL (74-106)
[2023-01-05] MEDS: Atorvastatin Calcium 80 MG Tablet PO (22:18)
[2023-01-06] VITALS (9 sets, daily range): BP systolic 125–145; BP diastolic 50–74; PULSE 73–88; RESP 14–20; TEMP 36.1–36.8; O2SAT 93–99
[2023-01-06] MEDS: Insulin Lispro 100 UNIT/ML INSULN.PEN SC ×5 (03:06→21:57)
[2023-01-06 03:28] LABS: Bedside Glucose 199 mg/dL (74-106)
[2023-01-06 05:59] LABS: Absolute Lymphocyte Count 0.92 X10^3/uL (0.83-4.51); Basophil# 0.02 X10^3/uL; Basophil% 0.2 % (0-1); Eosinophil# 0.01 X10^3/uL; Eosinophils% 0.1 % (0-5); Hemoglobin 8.8 g/dL (13.0-16.5); Lymphocyte # 0.92 X10^3/ul (0.83-4.51); Lymphocyte % 8.9 % (19-41); Mean Corp Hgb Conc 30.3 g/dL (32-36); Mean Corpuscular Hgb 27.5 pg (27.0-32.0); Mean Corpuscular Volume 90.6 fL (80-94); Mean Platelet Vol. 10.5 fl (6.2-12.0); Monocyte# 0.36 X10^3/uL; Monocyte% 3.5 % (0-10); NRBC Flagged by Analyzer 0 % (0-5); Neutrophil # 8.99 X10^3/uL (2.7-7.7); Neutrophil % 86.4 % (47-70); Platelet Count 181 K/mm3 (150-450); RBC Distribution Width CV 16.5 % (11.6-14.6); RBC Distribution Width SD 54.6 fl (35.1-43.9); White Blood Count 10.4 K/mm3 (4.4-11.0)
[2023-01-06] MEDS: HYDROcodone Bitartrate/Apap 5/325 Tablet PO ×3 (06:07→21:46)
[2023-01-06] MEDS: Methylprednisolone Sod Succ 40 MG/ML VIAL IV ×3 (06:07→21:40)
[2023-01-06 06:39] LABS: Bedside Glucose 192 mg/dL (74-106)
[2023-01-06 06:41] LABS: Anion Gap 7 (5-15); BUN 62 mg/dL (7-18); BUN/Creat Ratio 14.6 RATIO (10-20); Calcium,Total 8.4 mg/dL (8.5-10.1); Chloride 107 mmol/L (98-107); Creatinine, Serum 4.24 mg/dL (0.70-1.30); EST Glomerular Filtration Rate 15 mL/min (>60); Est Glom Filt Rate - Afr Amer 18 mL/min (>60); Estimated Creatinine Clearance 13.09 ml/min; Glucose 204 mg/dL (74-106); Potassium 4.8 mmol/L (3.5-5.1); Sodium Level 139 mmol/L (136-145)
[2023-01-06] MEDS: Budesonide Respules 0.5 MG/2 ML AMPUL.NEB. INHALATION ×2 (07:08→19:14)
--- NOTE | 2023-01-06 07:50 | PN.HOSP_ITS ---
Reason for Visit Reason for Visit: Diagnoses Hyperkalemia (12/30/22) Pneumonia, unspecified organism (12/30/22) Chronic obstructive pulmonary disease with (acute) exacerbation (12/30/22) Obstructive and reflux uropathy, unspecified (12/30/22) Acute kidney failure, unspecified (12/30/22) Acute cystitis without hematuria (12/30/22) Subjective Subjective Concerned about his as there is no one there to care for her. Thinks he may need to leave. Objective Data Objective Data Vital Signs: Vital Signs Temp Pulse Resp BP Pulse Ox O2 Del Method O2 Flow Rate 36.8 C 83 14 145/74 H 97 Nasal Cannula 3 01/06/23 03:00 01/06/23 03:00 01/06/23 03:00 01/06/23 03:00 01/06/23 03:00 01/06/23 03:00 01/06/23 03:00 FiO2 31 01/05/23 11:24 Oxygen Flow Rate (L/min) 3 Oxygen Delivery Method Nasal Cannula Weight: 74.8 kg Body Mass Index (BMI) 27.4 Intake & Output: Intake and Output for Last 24 Hours 01/04/23 01/05/23 01/06/23 23:59 23:59 23:59 Intake Total 305 / 305 446.25 / 446.25 50 / 50 Output Total 700 / 1000 1950 / 1950 Balance -395 / -695 -1503.75 / -1503.75 50 / 50 Lab / Micro Data 01/06/23 05:15 01/06/23 05:15 Labs: Laboratory Results - last 24 hr 01/05/23 03:15: Sodium 140, Potassium 4.0, Chloride 107, Carbon Dioxide 27.0, Anion Gap 6, BUN 55 H, Creatinine 3.98 H, Estim Creat Clear Calc 13.95, Est GFR (MDRD) Af Amer 19 L, Est GFR (MDRD) Non-Af 16 L, BUN/Creatinine Ratio 13.8, Glucose 183 H, Calcium 8.6 01/05/23 08:25: POC Glucose 148 H 01/05/23 12:00: POC Glucose 228 H 01/05/23 16:51: POC Glucose 260 H 01/05/23 20:14: POC Glucose 296 H 01/06/23 03:04: POC Glucose 199 H 01/06/23 05:15: WBC 10.4, RBC 3.20 L, Hgb 8.8 L, Hct 29.0 L, MCV 90.6, MCH 27.5, MCHC 30.3 L, RDW Std Deviation 54.6 H, RDW Coeff of Audi 16.5 H, Plt Count 181, MPV 10.5, Immature Gran % (Auto) 0.900, Neut % (Auto) 86.4 H, Lymph % (Auto) 8.9 L, [place] % (Auto) 3.5, Eos % (Auto) 0.1, Baso % (Auto) 0.2, Absolute Neuts (auto) 9.0 H, Absolute Lymphs (auto) 0.92, Nucleated RBC % 0, Sodium 139, Potassium 4.8, Chloride 107, Carbon Dioxide 25.0, Anion Gap 7, BUN 62 H, Creatinine 4.24 H , Estim Creat Clear Calc 13.09, Est GFR (MDRD) Af Amer 18 L, Est GFR (MDRD) Non- Af 15 L, BUN/Creatinine Ratio 14.6, Glucose 204 H, Calcium 8.4 L 01/06/23 06:06: POC Glucose 192 H Micro: Microbiology 12/30/22 16:33 Blood Culture (Wb) - Anticubital Left Blood Culture - Final No growth in 5 days. 12/30/22 16:33 Blood Culture (Wb) - Left Hand Blood Culture - Final No growth in 5 days. 01/01/23 08:45 Sputum, Expectorated/Coughed Gram Stain - Final 01/01/23 08:45 Sputum, Expectorated/Coughed Respiratory Culture - Final Achromobacter xylosoxidans 12/30/22 17:25 Urine, Catheterized Urine Culture - Final Presumptive E. coli 12/31/22 03:40 Mucosa - Nose Respiratory Panel (PCR) - Final 12/31/22 04:30 Urine Catheter - Catheter Legionella Antigen - Final 12/31/22 04:30 Urine Catheter - Catheter Streptococcus pneumoniae Antigen (M - Final 12/31/22 03:00 Nasal Secretion SARS-CoV-2 Antigen (Rapid) - Final Radiography Diagnostic Testing: Radiology Impression Chest X-Ray 01/05/23 07:55 IMPRESSION: Chronic interstitial changes with persistent interstitial edema and opacification in the right cardiophrenic angle likely atelectasis or early infiltrate. Electronically Signed: Rodríguez Hector MD at 8:19 EDT , Physical Exam Const alert and no apparent distress HEENT head/scalp atraumatic Resp Resp Narrative: bibasilar crackles. Cardio regular rate, regular rhythm, S1 normal heart sound and S2 normal heart sound GI normal to inspection, nondistended, normoactive bowel sounds, soft to palpation, non-tender and non-distended Neuro Sensorium / Orientation: awake and alert Assessment & Plan Assessment/Plan (1) Acute kidney injury: PLAN: 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 Admission creatinine 7.4. Started on CRRT on 12/31 w femoral line. Transitioned to RIJ temporary HD catheter placed and CRRT completed on 01/01. Transitioned to HD Immunology work up unremarkable Kidney US negative. If tunneled catheter needed, will need to hold clopidogrel. Received 01/05. Currently on hold. (2) Acute urinary obstruction: PLAN: Acute urinary retention 2/2 B[address] catheter in [address] Continue tamsulosin (3) Pneumonia: QUALIFIERS: Laterality: unspecified laterality Lung location: unspecified part of lung Pneumonia type: due to unspecified organism Qualified Code(s): J18.9 - Pneumonia, unspecified organism PLAN: Doubt true infection. SCx positive for Achromobacter xylosoxidans (Gram negative), sensitive to TMP/SMX CXR on 12/31 negative for infiltrate Repeat CXR not suggestive of pneumonia on 01/05 (4) UTI (urinary tract infection): QUALIFIERS: Hematuria presence: without hematuria Urinary tract infection type: acute cystitis Qualified Code(s): N30.00 - Acute cystitis w ithout hematuria PLAN: E. coli, chin-sensitive on UCx Continue CTX (12/31-) (5) COPD exacerbation: PLAN: Improving Continue BDs methylprednisolone. 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 ISS. Accuchecks ACHS.on gabapentin * hypertension: on carvedilol. * Hyperlipidemia: on statin * CAD: s/p CABG. On aspirin and statin. Clopidogrel held. * Anemia: stable. Transfuse if Hb <7. Hb today is 9.6. * Depression; on sertraline. DVT prophylaxis: heparin Patient was talking about leaving so he could care for his . I discouraged it stating that we are waiting on improvement of his kidney function and also he is on oxygen. I recommended staying until he is determined stable for discharge. I told him to think about it and let us know. I did also tell him that if he leaves A, that we would remove his dialysis catheter. Charges/Coding Visit Charges Inpatient E&M: 61364 Subs Hosp L2
[2023-01-06] MEDS: Heparin Injection (Vial) 5,000 UNIT/ML VIAL 5000 UNIT SC ×2 (08:48→21:39)
[2023-01-06] MEDS: Gabapentin 100 MG Capsule 200 MG PO ×3 (08:49→15:59)
[2023-01-06] MEDS: Menthol/Lanolin/Calamine/Znox 113 GM Tube 1 APPLIC TOPICAL ×2 (08:50→21:39)
--- NOTE | 2023-01-06 09:56 | PCM.PN.REN ---
Subjective Subjective Resting in bed eating breakfast. No overnight events. Denies any complaints. Denies any nausea, vomiting or diarrhea Objective Data Objective Data Vital Signs: Vital Signs Temp Pulse Resp BP Pulse Ox O2 Del Method O2 Flow Rate 97.0 F L 83 18 138/59 H 93 Nasal Cannula 3 01/06/23 08:34 01/06/23 08:34 01/06/23 08:34 01/06/23 08:34 01/06/23 08:34 01/06/23 08:37 01/06/23 08:37 FiO2 31 01/05/23 11:24 Oxygen Flow Rate (L/min) 3 Oxygen Delivery Method Nasal Cannula Weight: 74.8 kg Body Mass Index (BMI) 27.4 Intake & Output: Intake and Output for Last 24 Hours 01/04/23 01/05/23 01/06/23 23:59 23:59 23:59 Intake Total 305 / 305 446.25 / 446.25 50 / 50 Output Total 700 / 1000 1950 / 1950 Balance -395 / -695 -1503.75 / -1503.75 50 / 50 Lab / Micro Data 01/06/23 05:15 01/06/23 05:15 Labs: Laboratory Results - last 24 hr 01/05/23 12:00: POC Glucose 228 H 01/05/23 16:51: POC Glucose 260 H 01/05/23 20:14: POC Glucose 296 H 01/06/23 03:04: POC Glucose 199 H 01/06/23 05:15: WBC 10.4, RBC 3.20 L, Hgb 8.8 L, Hct 29.0 L, MCV 90.6, MCH 27.5, MCHC 30.3 L, RDW Std Deviation 54.6 H, RDW Coeff of Audi 16.5 H, Plt Count 181, MPV 10.5, Immature Gran % (Auto) 0.900, Neut % (Auto) 86.4 H, Lymph % (Auto) 8.9 L, [place] % (Auto) 3.5, Eos % (Auto) 0.1, Baso % (Auto) 0.2, Absolute Neuts (auto) 9.0 H, Absolute Lymphs (auto) 0.92, Nucleated RBC % 0, Sodium 139, Potassium 4.8, Chloride 107, Carbon Dioxide 25.0, Anion Gap 7, BUN 62 H, Creatinine 4.24 H, Estim Creat Clear Calc 13.09, Est GFR (MDRD) Af Amer 18 L, Est GFR (MDRD) Non-Af 15 L, BUN/Creatinine Ratio 14.6, Glucose 204 H, Calcium 8.4 L 01/06/23 06:06: POC Glucose 192 H Micro: Microbiology 12/30/22 16:33 Blood Culture (Wb) - Anticubital Left Blood Culture - Final No growth in 5 days. 12/30/22 16:33 Blood Culture (Wb) - Left Hand Blood Culture - Final No growth in 5 days. 01/01/23 08:45 Sputum, Expectorated/Coughed Gram Stain - Final 01/01/23 08:45 Sputum, Expectorated/Coughed Respiratory Culture - Final Achromobacter xylosoxidans 12/30/22 17:25 Urine, Catheterized Urine Culture - Final Presumptive E. coli 12/31/22 03:40 Mucosa - Nose Respiratory Panel (PCR) - Final 12/31/22 04:30 Urine Catheter - Catheter Legionella Antigen - Final 12/31/22 04:30 Urine Catheter - Catheter Streptococcus pneumoniae Antigen (M - Final 12/31/22 03:00 Nasal Secretion SARS-CoV-2 Antigen (Rapid) - Final Physical Exam Narrative Alert and oriented x3, no apparent distress Cardiac: Rhythm and rate regular Respiratory: Lung sounds clear anteriorly and posteriorly GI: Abdomen soft, nontender Bull with clear yellow urine in bag Right IJ non-tunneled HD catheter dressing clean, dry and intact Assessment & Plan Assessment/Plan (1) Acute hyperkalemia: (2) Acute kidney injury: PLAN: 77-year-old male with past medical history significant for diabetes mellitus type 2, CAD status post CABG x1, COPD not on home O2, hypertension and CKD followed by the [place] who presented to the emergency room on 12/30 with complaints of generalized weakness. Nephrology consulted for JOHN and hyperkalemia -JOHN superimposed on CKD stage IIIb (SCr 2.05 November 2022). Serum creatinine on admission 7.40 mg/dL. -Because of JOHN, uremia and hyperkalemia (bicarb 16, K+ peaked 7.4) patient was started on CRRT 12/31 via femoral line. Femoral line was sluggish not functioning well for CRRT therefore femoral line removed and non-tunneled right IJ temporary HD catheter placed. Patient was taken off of CRRT 01/01 at 1050. Patient had intermittent hemodialysis on 01/03 with no fluid removal. - Serologies ordered: YARELI, p-ANCA, c-ANCA negative, complements normal, SPEP negative. UPC 1394mg/g. Renal US no hydro. CXR clear. - urinary retention s/p bull placed -Though serum creatinine 4.24 mg/dL today, there is no acute indication for PNEUMATIC RIVETER today, potassium and bicarb normal, volume status euvolemic. Urine output somewhat better. Monitor for recovery. JOHN likely secondary to ATN. Last dialysis 01/03. Labs ordered for morning. We will keep temporary HD line in in case acute need for PNEUMATIC RIVETER. - pneumonia on antibiotics and IV steroids. - discussed nephrology plan with Dr. Redd.
[2023-01-06] MEDS: Carvedilol 3.125 MG TABLET PO ×2 (12:01→21:40)
[2023-01-06 12:20] LABS: Bedside Glucose 326 mg/dL (74-106)
[2023-01-06] MEDS: 0.9% Saline Lock 10 ML Syringe IV ×2 (14:53→21:48)
[2023-01-06] MEDS: Aspirin E.C. 81 MG Tablet PO (15:59)
[2023-01-06] MEDS: Sertraline 100 MG Tablet PO (15:59)
[2023-01-06 16:25] LABS: Bedside Glucose 264 mg/dL (74-106)
[2023-01-06] MEDS: Albuterol 2.5 MG/3 ML VIAL.NEB. INHALATION (19:14)
[2023-01-06] MEDS: Atorvastatin Calcium 80 MG Tablet PO (21:39)
[2023-01-07] VITALS (10 sets, daily range): BP systolic 128–144; BP diastolic 50–70; PULSE 74–90; RESP 17–80; TEMP 36.1–36.6; O2SAT 94–99
[2023-01-07 00:16] LABS: Bedside Glucose 296 mg/dL (74-106)
[2023-01-07] MEDS: Insulin Lispro 100 UNIT/ML INSULN.PEN SC ×5 (02:50→20:54)
[2023-01-07 03:13] LABS: Bedside Glucose 306 mg/dL (74-106)
[2023-01-07] MEDS: HYDROcodone Bitartrate/Apap 5/325 Tablet PO ×3 (06:21→20:53)
[2023-01-07] MEDS: Methylprednisolone Sod Succ 40 MG/ML VIAL IV ×3 (06:21→20:54)
[2023-01-07] MEDS: 0.9% Saline Lock 10 ML Syringe IV (06:23)
[2023-01-07 06:48] LABS: Bedside Glucose 298 mg/dL (74-106)
[2023-01-07] MEDS: Albuterol 2.5 MG/3 ML VIAL.NEB. INHALATION (07:32)
[2023-01-07] MEDS: Budesonide Respules 0.5 MG/2 ML AMPUL.NEB. INHALATION ×2 (07:32→19:45)
[2023-01-07 07:36] LABS: Basophil# 0.01 X10^3/uL; Basophil% 0.1 % (0-1); Hematocrit 28.4 % (40-54); Hemoglobin 8.7 g/dL (13.0-16.5); Lymphocyte % 10.9 % (19-41); Mean Corp Hgb Conc 30.6 g/dL (32-36); Mean Corpuscular Hgb 28.2 pg (27.0-32.0); Mean Corpuscular Volume 91.9 fL (80-94); Mean Platelet Vol. 10.5 fl (6.2-12.0); Monocyte% 4.2 % (0-10); NRBC Flagged by Analyzer 0 % (0-5); Neutrophil # 10.04 X10^3/uL (2.7-7.7); Platelet Count 194 K/mm3 (150-450); RBC Distribution Width CV 16.6 % (11.6-14.6); RBC Distribution Width SD 55.8 fl (35.1-43.9); Red Blood Count 3.09 M/mm3 (4.6-6.2); White Blood Count 11.9 K/mm3 (4.4-11.0)
--- NOTE | 2023-01-07 07:44 | PN.HOSP_ITS ---
Reason for Visit Reason for Visit: Diagnoses Hyperkalemia (12/30/22) Pneumonia, unspecified organism (12/30/22) Chronic obstructive pulmonary disease with (acute) exacerbation (12/30/22) Obstructive and reflux uropathy, unspecified (12/30/22) Acute kidney failure, unspecified (12/30/22) Acute cystitis without hematuria (12/30/22) Subjective Subjective No new events. Objective Data Objective Data Vital Signs: Vital Signs Temp Pulse Resp BP Pulse Ox O2 Del Method O2 Flow Rate 36.2 C L 74 18 142/50 H 97 Nasal Cannula 2 01/07/23 04:05 01/07/23 04:05 01/07/23 04:05 01/07/23 04:05 01/07/23 04:05 01/07/23 04:27 01/07/23 04:27 FiO2 31 01/05/23 11:24 Oxygen Flow Rate (L/min) 2 Oxygen Delivery Method Nasal Cannula Weight: 74.8 kg Body Mass Index (BMI) 27.4 Intake & Output: Intake and Output for Last 24 Hours 01/05/23 01/06/23 01/07/23 23:59 23:59 23:59 Intake Total 446.25 / 446.25 950 / 1190 695 / 695 Output Total 1950 / 1950 600 / 1050 750 / 750 Balance -1503.75 / -1503.75 350 / 140 -55 / -55 Lab / Micro Data 01/07/23 06:50 01/07/23 06:50 Labs: Laboratory Results - last 24 hr 01/06/23 11:59: POC Glucose 326 H 01/06/23 16:01: POC Glucose 264 H 01/06/23 21:57: POC Glucose 296 H 01/07/23 02:48: POC Glucose 306 H 01/07/23 06:26: POC Glucose 298 H 01/07/23 06:50: WBC 11.9 H, RBC 3.09 L, Hgb 8.7 L, Hct 28.4 L, MCV 91.9, MCH 28.2, MCHC 30.6 L, RDW Std Deviation 55.8 H, RDW Coeff of Audi 16.6 H, Plt Count 194, MPV 10.5, Immature Gran % (Auto) 0.800, Neut % (Auto) 84.0 H, Lymph % (Aut o) 10.9 L, [place] % (Auto) 4.2, Eos % (Auto) 0.0, Baso % (Auto) 0.1, Absolute N euts (auto) 10.0 H, Absolute Lymphs (auto) 1.30, Nucleated RBC % 0 Micro: Microbiology 12/30/22 16:33 Blood Culture (Wb) - Anticubital Left Blood Culture - Final No growth in 5 days. 12/30/22 16:33 Blood Culture (Wb) - Left Hand Blood Culture - Final No growth in 5 days. 01/01/23 08:45 Sputum, Expectorated/Coughed Gram Stain - Final 01/01/23 08:45 Sputum, Expectorated/Coughed Respiratory Culture - Final Achromobacter xylosoxidans 12/30/22 17:25 Urine, Catheterized Urine Culture - Final Presumptive E. coli 12/31/22 03:40 Mucosa - Nose Respiratory Panel (PCR) - Final 12/31/22 04:30 Urine Catheter - Catheter Legionella Antigen - Final 12/31/22 04:30 Urine Catheter - Catheter Streptococcus pneumoniae Antigen (M - Final 12/31/22 03:00 Nasal Secretion SARS-CoV-2 Antigen (Rapid) - Final Physical Exam Const alert and no apparent distress Resp Resp Narrative: improved air movement. faint wheezes. bilateral crackles. Cardio regular rate and regular rhythm Assessment & Plan Assessment/Plan (1) Acute kidney injury: PLAN: 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 Admission creatinine 7.4. Started on CRRT on 12/31 w femoral line. Transitioned to [facility] temporary HD catheter placed and CRRT completed on 01/01. Transitioned to HD. Last HD was 01/03 Immunology work up unremarkable Kidney US negative. If tunneled catheter needed, will need to hold clopidogrel. Received 01/05. Currently on hold. (2) Acute urinary obstruction: PLAN: Acute urinary retention 2/[address] B[address] catheter in [address] Continue tamsulosin Follow up with urology as outpt. (3) Pneumonia: QUALIFIERS: Laterality: unspecified laterality Lung location: uns pecified part of lung Pneumonia type: due to unspecified organism Qualified Code(s): J18.9 - Pneumonia, unspecified organism PLAN: Doubt true infection. SCx positive for Achromobacter xylosoxidans (Gram negative), sensitive to TMP/SMX CXR on 12/31 negative for infiltrate Repeat CXR not suggestive of pneumonia on 01/05 (4) UTI (urinary tract infection): QUALIFIERS: Hematuria presence: without hematuria Urinary tract infection type: acute cystitis Qualified Code(s): N30.00 - Acute cystitis without hematuria PLAN: E. coli, chin-sensitive on UCx Completed CTX (12/31-) (5) COPD exacerbation: PLAN: Improving Continue BDs methylprednisolone. 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 ISS. Accuchecks ACHS.on gabapentin * hypertension: on carvedilol. * Hyperlipidemia: on statin * CAD: s/p CABG. On aspirin and statin. Clopidogrel held. * Anemia: stable. Transfuse if Hb <7. Hb today is 9.6. * Depression; on sertraline. DVT prophylaxis: heparin 01/06: Patient was talking about leaving so he could care for his . I discouraged it stating that we are waiting on improvement of his kidney function and also he is on oxygen. I recommended staying until he is determined stable for discharge. I told him to think about it and let us know. I did also tell him that if he leaves AMA, that we would remove his dialysis catheter. 01/07: discussed need for more time to see how patient does. Obviously, the hope is that he will not require HD, but no sign that is the case at this time. Recommended following daily labs for improvement/worsening. Pt expressed understanding. Charges/Coding Visit Charges Inpatient E&M: 52922 Subs Hosp L2
[2023-01-07 08:01] LABS: Albumin, Serum 2.4 g/dL (3.2-5.0); BUN 73 mg/dL (7-18); BUN/Creat Ratio 16.6 RATIO (10-20); Calcium,Total 8.6 mg/dL (8.5-10.1); Chloride 102 mmol/L (98-107); Creatinine, Serum 4.39 mg/dL (0.70-1.30); EST Glomerular Filtration Rate 14 mL/min (>60); Est Glom Filt Rate - Afr Amer 17 mL/min (>60); Estimated Creatinine Clearance 12.65 ml/min; Glucose 288 mg/dL (74-106); Phosphorus 5.3 mg/dL (2.5-4.9); Potassium 4.6 mmol/L (3.5-5.1); Sodium Level 137 mmol/L (136-145)
--- NOTE | 2023-01-07 10:26 | PCM.PN.BLA ---
Progress Note Patient seen and examined briefly during AM rounds. He is found resting in bed. He denies any issues with dialysis of late. He denies any complaints and is waiting for breakfast this morning. His catheter is examined and appears appropriate in the right neck with scant crusted blood around the insertion site. The lumens appear locked. Is noted that he has an elevated white blood cell count again today. Should he fever recommend repeating blood cultures. For now, however, continue to hold antiplatelet therapy in anticipation for probable tunneled hemodialysis catheter insertion next week with Dr. Koenig.
[2023-01-07] MEDS: Aspirin E.C. 81 MG Tablet PO (10:36)
[2023-01-07] MEDS: Carvedilol 3.125 MG TABLET PO ×2 (10:37→20:54)
[2023-01-07] MEDS: Menthol/Lanolin/Calamine/Znox 113 GM Tube 1 APPLIC TOPICAL ×2 (10:37→20:52)
[2023-01-07] MEDS: Sertraline 100 MG Tablet PO (10:38)
[2023-01-07] MEDS: Heparin Injection (Vial) 5,000 UNIT/ML VIAL 5000 UNIT SC ×2 (10:39→20:53)
[2023-01-07] MEDS: Gabapentin 100 MG Capsule 200 MG PO ×3 (10:45→18:06)
[2023-01-07 13:10] LABS: Bedside Glucose 413 mg/dL (74-106)
[2023-01-07 17:22] LABS: Bedside Glucose 319 mg/dL (74-106)
[2023-01-07] MEDS: Atorvastatin Calcium 80 MG Tablet PO (20:53)
[2023-01-07] MEDS: Insulin Glargine-YFGN 100 UNIT/ML Pen 50 UNIT SC (21:00)
[2023-01-07 21:08] LABS: Bedside Glucose 365 mg/dL (74-106)
[2023-01-08] VITALS (11 sets, daily range): BP systolic 116–161; BP diastolic 49–90; PULSE 68–83; RESP 16–18; TEMP 36.4–36.7; O2SAT 90–99; BMI 29.2
[2023-01-08] MEDS: Insulin Lispro 100 UNIT/ML INSULN.PEN SC ×6 (02:32→23:39)
[2023-01-08 02:53] LABS: Bedside Glucose 322 mg/dL (74-106)
[2023-01-08] MEDS: HYDROcodone Bitartrate/Apap 5/325 Tablet PO ×3 (06:33→23:13)
[2023-01-08] MEDS: Methylprednisolone Sod Succ 40 MG/ML VIAL IV (06:33)
[2023-01-08 06:34] LABS: Absolute Lymphocyte Count 1.14 X10^3/uL (0.83-4.51); Absolute Neutrophil Count 11.5 X10^3/uL (2.0-7.7); Basophil# 0.01 X10^3/uL; Basophil% 0.1 % (0-1); Hematocrit 28.5 % (40-54); Hemoglobin 8.9 g/dL (13.0-16.5); Lymphocyte # 1.14 X10^3/ul (0.83-4.51); Lymphocyte % 8.5 % (19-41); Mean Corp Hgb Conc 31.2 g/dL (32-36); Mean Corpuscular Hgb 28.5 pg (27.0-32.0); Mean Corpuscular Volume 91.3 fL (80-94); Mean Platelet Vol. 10.4 fl (6.2-12.0); Monocyte# 0.65 X10^3/uL; Monocyte% 4.8 % (0-10); NRBC Flagged by Analyzer 0 % (0-5); Neutrophil # 11.49 X10^3/uL (2.7-7.7); Neutrophil % 85.7 % (47-70); Platelet Count 212 K/mm3 (150-450); RBC Distribution Width CV 16.6 % (11.6-14.6); RBC Distribution Width SD 55.8 fl (35.1-43.9); Red Blood Count 3.12 M/mm3 (4.6-6.2); White Blood Count 13.4 K/mm3 (4.4-11.0)
[2023-01-08 07:06] LABS: Bedside Glucose 263 mg/dL (74-106)
[2023-01-08] MEDS: Budesonide Respules 0.5 MG/2 ML AMPUL.NEB. INHALATION ×2 (07:07→20:00)
--- NOTE | 2023-01-08 07:14 | PN.HOSP_ITS ---
Reason for Visit Reason for Visit: Diagnoses Hyperkalemia (12/30/22) Pneumonia, unspecified organism (12/30/22) Chronic obstructive pulmonary disease with (acute) exacerbation (12/30/22) Obstructive and reflux uropathy, unspecified (12/30/22) Acute kidney failure, unspecified (12/30/22) Acute cystitis without hematuria (12/30/22) Subjective Subjective No new issues. Objective Data Objective Data Vital Signs: Vital Signs Temp Pulse Resp BP Pulse Ox O2 Del Method O2 Flow Rate 36.4 C L 80 18 161/90 H 97 Nasal Cannula 2 01/08/23 02:30 01/08/23 02:30 01/08/23 02:30 01/08/23 02:30 01/08/23 02:30 01/08/23 04:40 01/08/23 04:40 FiO2 2 01/08/23 02:30 Oxygen Flow Rate (L/min) 2 Oxygen Delivery Method Nasal Cannula Weight: 79.7 kg Body Mass Index (BMI) 29.2 Intake & Output: Intake and Output for Last 24 Hours 01/06/23 01/07/23 01/08/23 23:59 23:59 23:59 Intake Total 950 / 1190 1910 / 1910 0 / 0 Output Total 600 / 1050 1770 / 2220 850 / 850 Balance 350 / 140 140 / -310 -850 / -850 Lab / Micro Data 01/08/23 05:52 01/08/23 05:32 Labs: Laboratory Results - last 24 hr 01/07/23 06:50: WBC 11.9 H, RBC 3.09 L, Hgb 8.7 L, Hct 28.4 L, MCV 91.9, MCH 28.2, MCHC 30.6 L, RDW Std Deviation 55.8 H, RDW Coeff of Audi 16.6 H, Plt Count 194, MPV 10.5, Immature Gran % (Auto) 0.800, Neut % (Auto) 84.0 H, Lymph % (Auto) 10.9 L, [place] % (Auto) 4.2, Eos % (Auto) 0.0, Baso % (Auto) 0.1, Absolute Neuts (auto) 10.0 H, Absolute Lymphs (auto) 1.30, Nucleated RBC % 0, Sodium 137, Potassium 4.6, Chloride 102, Carbon Dioxide 25.0, BUN 73 H, Creatinine 4.39 H, Estim Creat Clear Calc 12.65, Est GFR (MDRD) Af Amer 17 L, Est GFR (MDRD) Non-Af 14 L, BUN/Creatinine Ratio 16.6, Glucose 288 H, Calcium 8.6, Phosphorus 5.3 H, Albumin 2.4 L 01/07/23 12:47: POC Glucose 413 H 01/07/23 16:58: POC Glucose 319 H 01/07/23 20:50: POC Glucose 365 H 01/08/23 02:31: POC Glucose 322 H 01/08/23 05:52: WBC 13.4 H, RBC 3.12 L, Hgb 8.9 L, Hct 28.5 L, MCV 91.3, MCH 28.5, MCHC 31.2 L, RDW Std Deviation 55.8 H, RDW Coeff of Audi 16.6 H, Plt Count 212, MPV 10.4, Immature Gran % (Auto) 0.900, Neut % (Auto) 85.7 H, Lymph % (Auto) 8.5 L, [place] % (Auto) 4.8, Eos % (Auto) 0.0, Baso % (Auto) 0.1, Absolute Neuts (auto) 11.5 H, Absolute Lymphs (auto) 1.14, Nucleated RBC % 0 01/08/23 06:48: POC Glucose 263 H Micro: Microbiology 12/30/22 16:33 Blood Culture (Wb) - Anticubital Left Blood Culture - Final No growth in 5 days. 12/30/22 16:33 Blood Culture (Wb) - Left Hand Blood Culture - Final No growth in 5 days. 01/01/23 08:45 Sputum, Expectorated/Coughed Gram Stain - Final 01/01/23 08:45 Sputum, Expectorated/Coughed Respiratory Culture - Final Achromobacter xylosoxidans 12/30/22 17:25 Urine, Catheterized Urine Culture - Final Presumptive E. coli 12/31/22 03:40 Mucosa - Nose Respiratory Panel (PCR) - Final 12/31/22 04:30 Urine Catheter - Catheter Legionella Antigen - Final 12/31/22 04:30 Urine Catheter - Catheter Streptococcus pneumoniae Antigen (M - Final 12/31/22 03:00 Nasal Secretion SARS-CoV-2 Antigen (Rapid) - Final Physical Exam Const alert and no apparent distress Resp normal respiratory effort, no retractions, no use of accessory muscles and clear to auscultation bilaterally Cardio regular rate, regular rhythm, S1 normal heart sound and S2 normal heart sound GI normal to inspection, nondistended, normoactive bowel sounds, soft to palpation, non-tender and non-distended Assessment & Plan Assessment/Plan (1) Acute kidney injury: PLAN: 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 Admission creatinine 7.4. Started on CRRT on 12/31 w femoral line. Transitioned to RIJ temporary HD catheter placed and CRRT completed on 01/01. Transitioned to HD. Last HD was 01/03 Immunology work up unremarkable Kidney US negative. If tunneled catheter needed, will need to hold clopidogrel. Received 01/05. Currently on hold. (2) Acute urinary obstruction: PLAN: Acute urinary retention / BPH Gonzalez catheter in place. Continue tamsulosin Follow up with urology as outpt. (3) Pneumonia: QUALIFIERS: Laterality: unspecified laterality Lung location: unspecified part of lung Pneumonia type: due to unspecified organism Qualified Code(s): J18.9 - Pneumonia, unspecified organism PLAN: Doubt true infection. SCx positive for Achromobacter xylosoxidans (Gram negative), sensitive to TMP/SMX CXR on 12/31 negative for infiltrate Repeat CXR not suggestive of pneumonia on 01/05 (4) UTI (urinary tract infection): QUALIFIERS: Hematuria presence: without hematuria Urinary tract infection type: acute cystitis Qualified Code(s): N30.00 - Acute cystitis w ithout hematuria PLAN: E. coli, chin-sensitive on UCx Completed CTX (12/31-) (5) COPD exacerbation: PLAN: Improving Continue BDs Change methylprednisolone to prednisone burst. 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 ISS. Accuchecks ACHS.on gabapentin * hypertension: on carvedilol. * Hyperlipidemia: on statin * CAD: s/p CABG. On aspirin and statin. Clopidogrel held. * Anemia: stable. Transfuse if Hb <7. Hb today is 9.6. * Depression; on sertraline. DVT prophylaxis: heparin 01/06: Patient was talking about leaving so he could care for his . I discouraged it stating that we are waiting on improvement of his kidney function and also he is on oxygen. I recommended staying until he is determined stable for discharge. I told him to think about it and let us know. I did also tell him that if he leaves AMA, that we would remove his dialysis catheter. 01/07: discussed need for more time to see how patient does. Obviously, the hope is that he will not require HD, but no sign that is the case at this time. Recommended following daily labs for improvement/worsening. Pt expressed understanding. Charges/Coding Visit Charges Inpatient E&M: 35195 Subs Hosp L2
--- NOTE | 2023-01-08 08:15 | PN.RENAL_ITS ---
Objective Data Objective Data Vital Signs: Vital Signs Temp Pulse Resp BP Pulse Ox O2 Del Method O2 Flow Rate 97.5 F L 75 16 161/90 H 93 Nasal Cannula 2 01/08/23 02:30 01/08/23 07:07 01/08/23 07:07 01/08/23 02:30 01/08/23 07:07 01/08/23 07:07 01/08/23 07:07 FiO2 2 01/08/23 02:30 Oxygen Flow Rate (L/min) 2 Oxygen Delivery Method Nasal Cannula Weight: 79.7 kg Body Mass Index (BMI) 29.2 Intake & Output: Intake and Output for Last 24 Hours 01/06/23 01/07/23 01/08/23 23:59 23:59 23:59 Intake Total 950 / 1190 1910 / 1910 0 / 0 Output Total 600 / 1050 1770 / 2220 850 / 850 Balance 350 / 140 140 / -310 -850 / -850 Lab / Micro Data 01/08/23 05:52 01/07/23 06:50 Labs: Laboratory Results - last 24 hr 01/07/23 12:47: POC Glucose 413 H 01/07/23 16:58: POC Glucose 319 H 01/07/23 20:50: POC Glucose 365 H 01/08/23 02:31: POC Glucose 322 H 01/08/23 05:52: WBC 13.4 H, RBC 3.12 L, Hgb 8.9 L, Hct 28.5 L, MCV 91.3, MCH 28.5, MCHC 31.2 L, RDW Std Deviation 55.8 H, RDW Coeff of Audi 16.6 H, Plt Count 212, MPV 10.4, Immature Gran % (Auto) 0.900, Neut % (Auto) 85.7 H, Lymph % (Auto) 8.5 L, [place] % (Auto) 4.8, Eos % (Auto) 0.0, Baso % (Auto) 0.1, Absolute Neuts (auto) 11.5 H, Absolute Lymphs (auto) 1.14, Nucleated RBC % 0 01/08/23 06:48: POC Glucose 263 H Micro: Microbiology 12/30/22 16:33 Blood Culture (Wb) - Anticubital Left Blood Culture - Final No growth in 5 days. 12/30/22 16:33 Blood Culture (Wb) - Left Hand Blood Culture - Final No growth in 5 days. 01/01/23 08:45 Sputum, Expectorated/Coughed Gram Stain - Final 01/01/23 08:45 Sputum, Expectorated/Coughed Respiratory Culture - Final Achromobacter xylosoxidans 12/30/22 17:25 Urine, Catheterized Urine Culture - Final Presumptive E. coli 12/31/22 03:40 Mucosa - Nose Respiratory Panel (PCR) - Final 12/31/22 04:30 Urine Catheter - Catheter Legionella Antigen - Final 12/31/22 04:30 Urine Catheter - Catheter Streptococcus pneumoniae Antigen (M - Final 12/31/22 03:00 Nasal Secretion SARS-CoV-2 Antigen (Rapid) - Final Physical Exam Narrative Alert and oriented x3, no apparent distress Cardiac: Rhythm and rate regular Respiratory: Lung sounds clear anteriorly and posteriorly GI: Abdomen soft, nontender Bull with clear yellow urine in bag Right IJ non-tunneled HD catheter dressing clean, dry and intact Const Constitutional Narrative: Patient answers simple questions, but has myoclonic jerks and somewhat lethargic General Appearance: well developed Orientation / Consciousness: oriented to person HEENT normocephalic Eyes PERRL Neck no lymphadenopathy Resp Auscultation: crackles right and wheezes GI Auscultation: normoactive bowel sounds Bladder / Kidney Exam: catheter in place Skin no rashes or lesions noted Neuro Sensorium / Orientation: lethargic Psych Memory / Cognition: cognition impaired Assessment & Plan Assessment/Plan (1) Acute hyperkalemia: (2) Acute kidney injury: PLAN: 77-year-old male with past medical history significant for diabetes mellitus type 2, CAD status post CABG x1, COPD not on home O2, hypertension and CKD followed by the [facility] who presented to the emergency room on 12/30 with complaints of generalized weakness. Nephrology consulted for JOHN and hyperkalemia -JOHN superimposed on CKD stage IIIb (SCr 2.05 November 2022). Serum creatinine on admission 7.40 mg/dL. JOHN is likely due to ATN. -Because of JOHN, uremia and hyperkalemia (bicarb 16, K+ peaked 7.4) patient was started on CRRT 12/31 via femoral line. Femoral line was sluggish not functioning well for CRRT therefore femoral line removed and non-tunneled right IJ temporary HD catheter placed. Patient was taken off of CRRT 01/01 at 1050. Patient last had intermittent hemodialysis on 01/03 with no fluid removal. - Serologies ordered: YARELI, p-ANCA, c-ANCA negative, complements normal, SPEP negative. UPC 1394mg/g. Renal US no hydro. CXR clear. -The patient does have urinary retention s/p bull placed -Though serum creatinine 4.39 on 01/07/2023 mg/dL yesterday, there is no urgent indication for [employer], potassium and bicarb normal, volume status is acceptable. Urine output has been adequate. Monitor for recovery. Labs ordered for morning. We will keep temporary HD line in for now in case acute need for [employer] SCI[employer]. -Awaiting labs today. - pneumonia on antibiotics and IV steroids. Hyperphosphatemia. Serum phosphorus is 5.3 mg/dL on 01/07/2023. Hyperphosphatemia is likely due to JOHN/CKD. However, phosphorus not high enough to require phosphorus binder. Will monitor levels.
[2023-01-08 08:35] LABS: Bedside Glucose 233 mg/dL (74-106)
[2023-01-08 08:44] LABS: Anion Gap 7 (5-15); BUN 89 mg/dL (7-18); BUN/Creat Ratio 19.7 RATIO (10-20); Calcium,Total 8.6 mg/dL (8.5-10.1); Chloride 104 mmol/L (98-107); Creatinine, Serum 4.51 mg/dL (0.70-1.30); EST Glomerular Filtration Rate 14 mL/min (>60); Est Glom Filt Rate - Afr Amer 16 mL/min (>60); Estimated Creatinine Clearance 12.31 ml/min; Glucose 278 mg/dL (74-106); Potassium 4.8 mmol/L (3.5-5.1); Sodium Level 135 mmol/L (136-145)
[2023-01-08] MEDS: Aspirin E.C. 81 MG Tablet PO (09:48)
[2023-01-08] MEDS: Menthol/Lanolin/Calamine/Znox 113 GM Tube 1 APPLIC TOPICAL ×2 (09:48→20:53)
[2023-01-08] MEDS: Gabapentin 100 MG Capsule 200 MG PO ×3 (09:48→17:14)
[2023-01-08] MEDS: Sertraline 100 MG Tablet PO (09:49)
[2023-01-08] MEDS: Heparin Injection (Vial) 5,000 UNIT/ML VIAL 5000 UNIT SC ×2 (09:49→23:06)
[2023-01-08] MEDS: Carvedilol 3.125 MG TABLET PO ×2 (09:49→23:07)
[2023-01-08 11:47] LABS: Bedside Glucose 396 mg/dL (74-106)
[2023-01-08] MEDS: predniSONE 20 MG Tablet 40 MG PO (13:03)
[2023-01-08 17:38] LABS: Bedside Glucose 347 mg/dL (74-106)
--- NOTE | 2023-01-08 18:22 | NURSING ---
between 1600 and 1800 this nurse attempted to wean PT. off O2. Tolerated @ 1L, SpO2 staying between 96-98%. Once moved to room air, SpO2 fluctuated between 86-90%. Placed back on 1L- SpO2 @ 96%.
[2023-01-08] MEDS: 0.9% Saline Lock 10 ML Syringe IV (20:52)
[2023-01-08] MEDS: Insulin Glargine-YFGN 100 UNIT/ML Pen 50 UNIT SC (23:06)
[2023-01-08] MEDS: Atorvastatin Calcium 80 MG Tablet PO (23:07)
[2023-01-08] MEDS: Senna/Docusate Sodium 1 Tablet 2 TABLET PO (23:07)
[2023-01-08 23:34] LABS: Bedside Glucose > 500 mg/dL (74-106)
[2023-01-08 23:34] LABS: Glucose 555 mg/dL (74-106)
[2023-01-09] VITALS (9 sets, daily range): BP systolic 134–143; BP diastolic 56–63; PULSE 75–90; RESP 16–18; TEMP 36.6–36.9; O2SAT 96–98; BMI 29.1
[2023-01-09] MEDS: Insulin Lispro 100 UNIT/ML INSULN.PEN SC ×5 (02:23→21:40)
[2023-01-09 02:53] LABS: Bedside Glucose 361 mg/dL (74-106)
[2023-01-09 04:25] LABS: Absolute Lymphocyte Count 0.96 X10^3/uL (0.83-4.51); Absolute Neutrophil Count 10.6 X10^3/uL (2.0-7.7); Basophil# 0.01 X10^3/uL; Basophil% 0.1 % (0-1); Hematocrit 29.9 % (40-54); Hemoglobin 9.3 g/dL (13.0-16.5); Lymphocyte # 0.96 X10^3/ul (0.83-4.51); Lymphocyte % 7.9 % (19-41); Mean Corp Hgb Conc 31.1 g/dL (32-36); Mean Corpuscular Hgb 28.4 pg (27.0-32.0); Mean Corpuscular Volume 91.4 fL (80-94); Mean Platelet Vol. 9.9 fl (6.2-12.0); Monocyte# 0.53 X10^3/uL; Monocyte% 4.3 % (0-10); NRBC Flagged by Analyzer 0 % (0-5); Neutrophil # 10.57 X10^3/uL (2.7-7.7); Neutrophil % 86.5 % (47-70); Platelet Count 202 K/mm3 (150-450); RBC Distribution Width CV 16.7 % (11.6-14.6); RBC Distribution Width SD 55.8 fl (35.1-43.9); Red Blood Count 3.27 M/mm3 (4.6-6.2); White Blood Count 12.2 K/mm3 (4.4-11.0)
[2023-01-09 05:08] LABS: Anion Gap 8 (5-15); BUN 96 mg/dL (7-18); Calcium,Total 8.6 mg/dL (8.5-10.1); Chloride 106 mmol/L (98-107); Creatinine, Serum 4.58 mg/dL (0.70-1.30); EST Glomerular Filtration Rate 13 mL/min (>60); Est Glom Filt Rate - Afr Amer 16 mL/min (>60); Estimated Creatinine Clearance 12.12 ml/min; Glucose 305 mg/dL (74-106); Potassium 4.6 mmol/L (3.5-5.1); Sodium Level 137 mmol/L (136-145)
[2023-01-09 05:26] LABS: Phosphorus 4.8 mg/dL (2.5-4.9)
[2023-01-09] MEDS: HYDROcodone Bitartrate/Apap 5/325 Tablet PO ×3 (06:39→23:03)
[2023-01-09 07:06] LABS: Bedside Glucose 251 mg/dL (74-106)
[2023-01-09] MEDS: Budesonide Respules 0.5 MG/2 ML AMPUL.NEB. INHALATION ×2 (07:26→18:48)
--- NOTE | 2023-01-09 08:06 | PN.SURG_ITS ---
Subjective Subjective Patient seen and examined during AM rounds. He is found sitting out of bed eating breakfast. He denies any neck discomfort or shortness of breath. He states he is unaware of what nephrology's plans are ultimately for dialysis. He does report an awareness that he may require a new catheter if dialysis is sought long-term. Objective Data Objective Data Vital Signs: Vital Signs Temp Pulse Resp BP Pulse Ox O2 Del Method O2 Flow Rate 98.4 F 83 17 136/63 H 97 Nasal Cannula 2 01/09/23 06:38 01/09/23 06:38 01/09/23 06:38 01/09/23 06:38 01/09/23 06:38 01/09/23 06:38 01/09/23 06:38 FiO2 2 01/08/23 02:30 Oxygen Flow Rate (L/min) 2 Oxygen Delivery Method Nasal Cannula Weight: 175 lb 4.28 oz Body Mass Index (BMI) 29.1 Intake & Output: Intake and Output for Last 24 Hours 01/07/23 01/08/23 01/09/23 23:59 23:59 23:59 Intake Total 1910 / 1910 1842.5 / 1842.5 Output Total 1770 / 2220 2200 / 2200 850 / 850 Balance 140 / -310 -357.5 / -357.5 -850 / -850 Lab / Micro Data 01/09/23 04:00 01/09/23 04:00 Labs: Laboratory Results - last 24 hr 01/08/23 05:32: Sodium 135 L, Potassium 4.8, Chloride 104, Carbon Dioxide 24.0, Anion Gap 7, BUN 89 H, Creatinine 4.51 H, Estim Creat Clear Calc 12.31, Est GFR (MDRD) Af Amer 16 L, Est GFR (MDRD) Non-Af 14 L, BUN/Creatinine Ratio 19.7, Glucose 278 H, Calcium 8.6 01/08/23 08:09: POC Glucose 233 H 01/08/23 11:28: POC Glucose 396 H 01/08/23 17:07: POC Glucose 347 H 01/08/23 22:30: POC Glucose > 500 H* 01/08/23 22:41: Glucose 555 H* 01/09/23 02:20: POC Glucose 361 H 01/09/23 04:00: WBC 12.2 H, RBC 3.27 L, Hgb 9.3 L, Hct 29.9 L, MCV 91.4, MCH 28.4, MCHC 31.1 L, RDW Std Deviation 55.8 H, RDW Coeff of Audi 16.7 H, Plt Count 202, MPV 9.9, Immature Gran % (Auto) 1.200 H, Neut % (Auto) 86.5 H, Lymph % (Auto) 7.9 L, [place] % (Auto) 4.3, Eos % (Auto) 0.0, Baso % (Auto) 0.1, Absolute Neuts (auto) 10.6 H, Absolute Lymphs (auto) 0.96, Nucleated RBC % 0, Sodium 137, Potassium 4.6, Chloride 106, Carbon Dioxide 23.0, Anion Gap 8, BUN 96 H, Creatinine 4.58 H, Estim Creat Clear Calc 12.12, Est GFR (MDRD) Af Amer 16 L, Est GFR (MDRD) Non-Af 13 L, BUN/Creatinine Ratio 21.0 H, Glucose 305 H, Calcium 8.6, Phosphorus 4.8 01/09/23 06:37: POC Glucose 251 H Micro: Microbiology 12/30/22 16:33 Blood Culture (Wb) - Anticubital Left Blood Culture - Final No growth in 5 days. 12/30/22 16:33 Blood Culture (Wb) - Left Hand Blood Culture - Final No growth in 5 days. 01/01/23 08:45 Sputum, Expectorated/Coughed Gram Stain - Final 01/01/23 08:45 Sputum, Expectorated/Coughed Respiratory Culture - Final Achromobacter xylosoxidans 12/30/22 17:25 Urine, Catheterized Urine Culture - Final Presumptive E. coli 12/31/22 03:40 Mucosa - Nose Respiratory Panel (PCR) - Final 12/31/22 04:30 Urine Catheter - Catheter Legionella Antigen - Final 12/31/22 04:30 Urine Catheter - Catheter Streptococcus pneumoniae Antigen (M - Final 12/31/22 03:00 Nasal Secretion SARS-CoV-2 Antigen (Rapid) - Final Physical Exam Const oriented x3 and no apparent distress Neck Neck Narrative: Right IJ temporary hemodialysis catheter in place with chlorhexidine dressing intact. Lumens appear to be locked. Resp normal respiratory effort Assessment & Plan Assessment/Plan (1) Acute kidney injury: PLAN: This is a 77-year-old male with JOHN superimposed on CKD who is currently undergoing hemodialysis per nephrology via a temporary hemodialysis catheter in the right IJ position. According to nephrology, there is no strong indication to pursue dialysis today based on electrolytes and volume status. However, patient's creatinine has deteriorated further since labs were last checked. Anticipation of possible long-term dialysis plans, I do recommend that patient is made n.p.o. past midnight so he may be eligible for placement of a tunneled hemodialysis catheter tomorrow if that becomes the ultimate decision. Plan was discussed with patient and primary team. Continue to hold Plavix. Charges/Coding Visit Charges Inpatient E&M: 34674 Subs Hosp L2
[2023-01-09] MEDS: Gabapentin 100 MG Capsule 200 MG PO ×3 (09:06→16:38)
[2023-01-09] MEDS: predniSONE 20 MG Tablet 40 MG PO (09:09)
[2023-01-09] MEDS: Heparin Injection (Vial) 5,000 UNIT/ML VIAL 5000 UNIT SC ×2 (09:09→21:40)
[2023-01-09] MEDS: Carvedilol 3.125 MG TABLET PO ×2 (09:09→21:41)
[2023-01-09] MEDS: Senna/Docusate Sodium 1 Tablet 2 TABLET PO (09:09)
[2023-01-09] MEDS: Aspirin E.C. 81 MG Tablet PO (09:09)
[2023-01-09] MEDS: Sertraline 100 MG Tablet PO (09:09)
[2023-01-09] MEDS: Menthol/Lanolin/Calamine/Znox 113 GM Tube 1 APPLIC TOPICAL ×2 (09:10→21:39)
--- NOTE | 2023-01-09 09:26 | PCM.PN.REN ---
Subjective Subjective Following for JOHN on CKD. The patient denies current chest pain, shortness of breath, or nausea. Appetite is good. Objective Data Objective Data Vital Signs: Vital Signs Temp Pulse Resp BP Pulse Ox O2 Del Method O2 Flow Rate 97.9 F 80 18 143/58 H 98 Nasal Cannula 2 01/09/23 09:00 01/09/23 09:00 01/09/23 09:00 01/09/23 09:00 01/09/23 09:00 01/09/23 09:01 01/09/23 09:01 FiO2 2 01/08/23 02:30 Oxygen Flow Rate (L/min) 2 Oxygen Delivery Method Nasal Cannula Weight: 79.5 kg Body Mass Index (BMI) 29.1 Intake & Output: Intake and Output for Last 24 Hours 01/07/23 01/08/23 01/09/23 23:59 23:59 23:59 Intake Total 1910 / 1910 1842.5 / 1842.5 Output Total 1770 / 2220 2200 / 2200 850 / 850 Balance 140 / -310 -357.5 / -357.5 -850 / -850 Lab / Micro Data 01/09/23 04:00 01/09/23 04:00 Labs: Laboratory Results - last 24 hr 01/08/23 11:28: POC Glucose 396 H 01/08/23 17:07: POC Glucose 347 H 01/08/23 22:30: POC Glucose > 500 H* 01/08/23 22:41: Glucose 555 H* 01/09/23 02:20: POC Glucose 361 H 01/09/23 04:00: WBC 12.2 H, RBC 3.27 L, Hgb 9.3 L, Hct 29.9 L, MCV 91.4, MCH 28.4, MCHC 31.1 L, RDW Std Deviation 55.8 H, RDW Coeff of Audi 16.7 H, Plt Count 202, MPV 9.9, Immature Gran % (Auto) 1.200 H, Neut % (Auto) 86.5 H, Lymph % (Auto) 7.9 L, [place] % (Auto) 4.3, Eos % (Auto) 0.0, Baso % (Auto) 0.1, Absolute Neuts (auto) 10.6 H, Absolute Lymphs (auto) 0.96, Nucleated RBC % 0, Sodium 137, Potassium 4.6, Chloride 106, Carbon Dioxide 23.0, Anion Gap 8, BUN 96 H, Creatinine 4.58 H, Estim Creat Clear Calc 12.12, Est GFR (MDRD) Af Amer 16 L, Est GFR (MDRD) Non-Af 13 L, BUN/Creatinine Ratio 21.0 H, Glucose 305 H, Calcium 8.6, Phosphorus 4.8 01/09/23 06:37: POC Glucose 251 H Micro: Microbiology 12/30/22 16:33 Blood Culture (Wb) - Anticubital Left Blood Culture - Final No growth in 5 days. 12/30/22 16:33 Blood Culture (Wb) - Left Hand Blood Culture - Final No growth in 5 days. 01/01/23 08:45 Sputum, Expectorated/Coughed Gram Stain - Final 01/01/23 08:45 Sputum, Expectorated/Coughed Respiratory Culture - Final Achromobacter xylosoxidans 12/30/22 17:25 Urine, Catheterized Urine Culture - Final Presumptive E. coli 12/31/22 03:40 Mucosa - Nose Respiratory Panel (PCR) - Final 12/31/22 04:30 Urine Catheter - Catheter Legionella Antigen - Final 12/31/22 04:30 Urine Catheter - Catheter Streptococcus pneumoniae Antigen (M - Final 12/31/22 03:00 Nasal Secretion SARS-CoV-2 Antigen (Rapid) - Final Physical Exam Narrative Alert and oriented x3, no apparent distress Cardiac: Rhythm and rate regular Respiratory: Lung sounds clear anteriorly and posteriorly GI: Abdomen soft, nontender Gonzalez with clear yellow urine in bag Right IJ non-tunneled HD catheter dressing clean, dry and intact Const Constitutional Narrative: Patient answers simple questions, but has myoclonic jerks and somewhat lethargic General Appearance: well developed Orientation / Consciousness: oriented to person HEENT normocephalic Eyes PERRL Neck no lymphadenopathy Resp Auscultation: crackles right and wheezes GI Auscultation: normoactive bowel sounds Bladder / Kidney Exam: catheter in place Skin no rashes or lesions noted Neuro Sensorium / Orientation: lethargic Psych Memory / Cognition: cognition impaired Assessment & Plan Assessment/Plan (1) Acute hyperkalemia: (2) Acute kidney injury: PLAN: Impression/Plan: 77-year-old male with past medical history significant for diabetes mellitus type 2, CAD status post CABG x1, COPD not on home O2, hypertension and CKD followed by the [facility] who presented to the emergency room on 12/30 with complaints of generalized weakness. Nephrology consulted for JOHN and hyperkalemia -JOHN superimposed on CKD stage IIIb (SCr 2.05 November 2022). Serum creatinine on admission 7.40 mg/dL. JOHN is likely due to ATN. -Because of JOHN, uremia and hyperkalemia (bicarb 16, K+ peaked 7.4) patient was started on CRRT 12/31 via femoral line. Femoral line was sluggish not functioning well for CRRT therefore femoral line removed and non-tunneled right IJ temporary HD catheter placed. Patient was taken off of CRRT 01/01 at 1050. Patient last had intermittent hemodialysis on 01/03 with no fluid removal. - Serologies ordered: YARELI, p-ANCA, c-ANCA negative, complements normal, SPEP negative. UPC 1394mg/g. Renal US no hydro. CXR clear. -The patient does have urinary retention s/p Gonzalez catheter placement. -Although serum creatinine has been rising slowly since 01/04/2023 (serum creatinine has increased from 3.45 mg/dL on 01/04/2023 up to 4.58 mg/dL today on 01/09/2023), there is no urgent need for dialysis today. He is not hyperkalemic or acidotic. He does not appear to be volume overloaded. -Recheck renal function, volume status, acid-base status and electrolytes again tomorrow. Leave dialysis catheter in for now. Hyperphosphatemia. Serum phosphorus is 5.3 mg/dL on 01/07/2023. Hyperphosphatemia is likely due to JOHN/CKD. However, phosphorus not high enough to require phosphorus binder. Phosphorus level is better today at 4.8 mg/dL on 01/09/2023. Will monitor levels.
[2023-01-09] MEDS: Polyethylene Glycol 3350 17 GM PACKET PO ×2 (09:30→23:04)
--- NOTE | 2023-01-09 11:21 | PN.HOSP_ITS ---
Subjective Subjective Feels better, no issues overnight. Would like to go home however understands the need to decide whether or not hemodialysis is necessary at this point Objective Data Objective Data Vital Signs: Vital Signs Temp Pulse Resp BP Pulse Ox O2 Del Method O2 Flow Rate 97.9 F 80 18 143/58 H 98 Nasal Cannula 2 01/09/23 09:00 01/09/23 09:00 01/09/23 09:00 01/09/23 09:00 01/09/23 09:00 01/09/23 09:01 01/09/23 09:01 FiO2 2 01/08/23 02:30 Oxygen Flow Rate (L/min) 2 Oxygen Delivery Method Nasal Cannula Weight: 175 lb 4.28 oz Body Mass Index (BMI) 29.1 Intake & Output: Intake and Output for Last 24 Hours 01/08/23 01/09/23 01/10/23 03:59 03:59 03:59 Intake Total 1415 / 1415 1842.5 / 1842.5 Output Total 1770 / 1770 1750 / 1750 850 / 850 Balance -355 / -355 92.5 / 92.5 -850 / -850 Lab / Micro Data 01/09/23 04:00 01/09/23 04:00 Labs: Laboratory Results - last 24 hr 01/08/23 11:28: POC Glucose 396 H 01/08/23 17:07: POC Glucose 347 H 01/08/23 22:30: POC Glucose > 500 H* 01/08/23 22:41: Glucose 555 H* 01/09/23 02:20: POC Glucose 361 H 01/09/23 04:00: WBC 12.2 H, RBC 3.27 L, Hgb 9.3 L, Hct 29.9 L, MCV 91.4, MCH 28.4, MCHC 31.1 L, RDW Std Deviation 55.8 H, RDW Coeff of Audi 16.7 H, Plt Count 202, MPV 9.9, Immature Gran % (Auto) 1.200 H, Neut % (Auto) 86.5 H, Lymph % (Auto) 7.9 L, Hall % (Auto) 4.3, Eos % (Auto) 0.0, Baso % (Auto) 0.1, Absolute Neuts (auto) 10.6 H, Absolute Lymphs (auto) 0.96, Nucleated RBC % 0, Sodium 137, Potassium 4.6, Chloride 106, Carbon Dioxide 23.0, Anion Gap 8, BUN 96 H, Creatinine 4.58 H, Estim Creat Clear Calc 12.12, Est GFR (MDRD) Af Amer 16 L, Est GFR (MDRD) Non-Af 13 L, BUN/Creatinine Ratio 21.0 H, Glucose 305 H, Calcium 8.6, Phosphorus 4.8 01/09/23 06:37: POC Glucose 251 H Micro: Microbiology 12/30/22 16:33 Blood Culture (Wb) - Anticubital Left Blood Culture - Final No growth in 5 days. 12/30/22 16:33 Blood Culture (Wb) - Left Hand Blood Culture - Final No growth in 5 days. 01/01/23 08:45 Sputum, Expectorated/Coughed Gram Stain - Final 01/01/23 08:45 Sputum, Expectorated/Coughed Respiratory Culture - Final Achromobacter xylosoxidans 12/30/22 17:25 Urine, Catheterized Urine Culture - Final Presumptive E. coli 12/31/22 03:40 Mucosa - Nose Respiratory Panel (PCR) - Final 12/31/22 04:30 Urine Catheter - Catheter Legionella Antigen - Final 12/31/22 04:30 Urine Catheter - Catheter Streptococcus pneumoniae Antigen (M - Final 12/31/22 03:00 Nasal Secretion SARS-CoV-2 Antigen (Rapid) - Final Physical Exam Narrative General: Alert, Oriented x3, Cooperative, No apparent distress HEENT: Atraumatic, PERRLA, EOMI, Normocephalic Oral: Moist Mucosa Neck: Supple, No JVD, dialysis catheter in his right neck Lungs: Diminished, Normal air movement, No rhonchi, No wheeze, No rales Cardiovascular: Regular rate, Regular Rhythm, Normal S1, Normal S2, No murmurs Abdomen: Soft, Non Tender, Non-Distended, No Hepato-splenomegaly Extremities: No edema, Capillary Refill Less than 3 Seconds Skin: No rashes, No breakdown Musculoskeletal: No Tenderness to Palpation of Joints or Extremities Neurological: Motor Exam 5/5 strength throughout, Sensory exam intact to light touch and pain, nonfocal Psych/Mental Status: Normal Affect, Appropriate Assessment & Plan Assessment/Plan (1) Acute kidney injury: PLAN: 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 Admission creatinine 7.4. Started on CRRT on 12/31 w femoral line. Transitioned to RIJ temporary HD catheter placed and CRRT completed on 01/01. Transitioned to HD. Last HD was 01/03 Immunology work up unremarkable Kidney US negative. If tunneled catheter needed, will need to hold clopidogrel. Received 01/05. Currently on hold. 01/09/2023: Creatinine continues to climb though slowly, he is making urine output we will leave it up to nephrology to decide on trigger for tunneled catheter and hemodialysis (2) Acute urinary obstruction: PLAN: Acute urinary retention 2/2 BPH Gonzalez catheter in place. Continue tamsulosin 01/09/2023: Follow up with urology as outpt. We will leave Gonzalez ice (3) Pneumonia: QUALIFIERS: Pneumonia type: due to unspecified organism Laterality: unspecified laterality Lung location: unspecified part of lung Qualified Code(s): J18.9 - Pneumonia, unspecified organism PLAN: Doubt true infection. SCx positive for Achromobacter xylosoxidans (Gram negative), sensitive to T MP/SMX CXR on 12/31 negative for infiltrate Repeat CXR not suggestive of pneumonia on 01/05 (4) UTI (urinary tract infection): QUALIFIERS: Urinary tract infection type: acute cystitis Hematuria presence: without hematuria Qualified Code(s): N30.00 - Acute cystitis without hematuria PLAN: E. coli, chin-sensitive on UCx Completed CTX (12/31-) (5) COPD exacerbation: PLAN: Improving Continue BDs Change methylprednisolone to prednisone burst. 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 ISS. Accuchecks ACHS.on gabapentin * hypertension: on carvedilol. * Hyperlipidemia: on statin * CAD: s/p CABG. On aspirin and statin. Clopidogrel held. * Anemia: stable. Transfuse if Hb <7. Will monitor * Depression; on sertraline. DVT prophylaxis: heparin Charges/Coding Visit Charges Inpatient E&M: 42698 Subs Hosp L2
[2023-01-09 12:16] LABS: Bedside Glucose 344 mg/dL (74-106)
[2023-01-09 17:05] LABS: Bedside Glucose 422 mg/dL (74-106)
[2023-01-09] MEDS: Atorvastatin Calcium 80 MG Tablet PO (21:39)
[2023-01-09] MEDS: Insulin Glargine-YFGN 100 UNIT/ML Pen 50 UNIT SC (21:41)
[2023-01-09 23:25] LABS: Bedside Glucose 423 mg/dL (74-106)
[2023-01-10] VITALS (17 sets, daily range): BP systolic 118–255; BP diastolic 44–78; PULSE 65–86; RESP 12–20; TEMP 36.1–36.8; O2SAT 91–100; BMI 29.0; BMI 28.8
[2023-01-10] MEDS: Insulin Lispro 100 UNIT/ML INSULN.PEN SC ×4 (05:43→21:29)
[2023-01-10 06:03] LABS: Bedside Glucose 268 mg/dL (74-106)
[2023-01-10] MEDS: HYDROcodone Bitartrate/Apap 5/325 Tablet PO ×3 (06:30→21:29)
[2023-01-10] MEDS: Budesonide Respules 0.5 MG/2 ML AMPUL.NEB. INHALATION ×2 (06:55→19:25)
[2023-01-10 07:09] LABS: Absolute Lymphocyte Count 1.78 X10^3/uL (0.83-4.51); Absolute Neutrophil Count 12.6 X10^3/uL (2.0-7.7); Basophil# 0.02 X10^3/uL; Basophil% 0.1 % (0-1); Eosinophil# 0.01 X10^3/uL; Eosinophils% 0.1 % (0-5); Hematocrit 30.2 % (40-54); Hemoglobin 9.2 g/dL (13.0-16.5); Lymphocyte # 1.78 X10^3/ul (0.83-4.51); Lymphocyte % 11.3 % (19-41); Mean Corp Hgb Conc 30.5 g/dL (32-36); Mean Corpuscular Hgb 27.6 pg (27.0-32.0); Mean Corpuscular Volume 90.7 fL (80-94); Mean Platelet Vol. 10.3 fl (6.2-12.0); Monocyte# 1.16 X10^3/uL; Monocyte% 7.4 % (0-10); NRBC Flagged by Analyzer 0 % (0-5); Neutrophil # 12.59 X10^3/uL (2.7-7.7); Neutrophil % 79.8 % (47-70); Platelet Count 228 K/mm3 (150-450); RBC Distribution Width CV 16.6 % (11.6-14.6); RBC Distribution Width SD 55.2 fl (35.1-43.9); Red Blood Count 3.33 M/mm3 (4.6-6.2); White Blood Count 15.8 K/mm3 (4.4-11.0)
--- NOTE | 2023-01-10 07:15 | PN.SURG_ITS ---
Subjective Subjective labs pending--possible dialysis today Objective Data Objective Data Vital Signs: Vital Signs Temp Pulse Resp BP Pulse Ox O2 Del Method O2 Flow Rate 97.9 F 90 18 136/62 H 98 Nasal Cannula 2 01/09/23 22:42 01/09/23 22:42 01/09/23 22:42 01/09/23 22:42 01/09/23 22:42 01/10/23 04:33 01/10/23 04:33 FiO2 2 01/08/23 02:30 Oxygen Flow Rate (L/min) 2 Oxygen Delivery Method Nasal Cannula Weight: 174 lb 13.225 oz Body Mass Index (BMI) 29.0 Intake & Output: Intake and Output for Last 24 Hours 01/08/23 01/09/23 01/10/23 23:59 23:59 23:59 Intake Total 1842.5 / 1842.5 400 / 400 Output Total 2200 / 2200 1250 / 1750 800 / 800 Balance -357.5 / -357.5 -850 / -1350 -800 / -800 Lab / Micro Data 01/10/23 06:07 01/10/23 06:07 Labs: Laboratory Results - last 24 hr 01/09/23 11:16: POC Glucose 344 H 01/09/23 16:36: POC Glucose 422 H 01/09/23 21:34: POC Glucose 423 H 01/10/23 05:40: POC Glucose 268 H 01/10/23 06:07: WBC 15.8 H, RBC 3.33 L, Hgb 9.2 L, Hct 30.2 L, MCV 90.7, MCH 27.6, MCHC 30.5 L, RDW Std Deviation 55.2 H, RDW Coeff of Audi 16.6 H, Plt Count 228, MPV 10.3, Immature Gran % (Auto) 1.300 H, Neut % (Auto) 79.8 H, Lymph % (Auto) 11.3 L, [place] % (Auto) 7.4, Eos % (Auto) 0.1, Baso % (Auto) 0.1, Absolute Neuts (auto) 12.6 H, Absolute Lymphs (auto) 1.78, Nucleated RBC % 0 Micro: Microbiology 12/30/22 16:33 Blood Culture (Wb) - Anticubital Left Blood Culture - Final No growth in 5 days. 12/30/22 16:33 Blood Culture (Wb) - Left Hand Blood Culture - Final No growth in 5 days. 01/01/23 08:45 Sputum, Expectorated/Coughed Gram Stain - Final 01/01/23 08:45 Sputum, Expectorated/Coughed Respiratory Culture - Final Achromobacter xylosoxidans 12/30/22 17:25 Urine, Catheterized Urine Culture - Final Presumptive E. coli 12/31/22 03:40 Mucosa - Nose Respiratory Panel (PCR) - Final 12/31/22 04:30 Urine Catheter - Catheter Legionella Antigen - Final 12/31/22 04:30 Urine Catheter - Catheter Streptococcus pneumoniae Antigen (M - Final 12/31/22 03:00 Nasal Secretion SARS-CoV-2 Antigen (Rapid) - Final Physical Exam Narrative right IJ dialysis catheter in place Resp normal respiratory effort Cardio regular rate Assessment & Plan Assessment/Plan (1) Acute hyperkalemia: (2) Acute kidney injury: PLAN: Plan Await labs this morning and nephrology decision if patient needs a tunneled. Okay for diet today--Plavix currently being held. addendum- will plan for tunnelled dialysis catheter- tomorrow. Alix Koenig M.D. Pager: [phone] [facility] [address] [place] [address], [facility], [address] [place] [id number] Office: [phone]
[2023-01-10 07:55] LABS: Anion Gap 10 (5-15); BUN 114 mg/dL (7-18); BUN/Creat Ratio 25.6 RATIO (10-20); Calcium,Total 8.7 mg/dL (8.5-10.1); Chloride 104 mmol/L (98-107); Creatinine, Serum 4.46 mg/dL (0.70-1.30); EST Glomerular Filtration Rate 14 mL/min (>60); Est Glom Filt Rate - Afr Amer 17 mL/min (>60); Estimated Creatinine Clearance 12.45 ml/min; Glucose 265 mg/dL (74-106); Potassium 4.2 mmol/L (3.5-5.1); Sodium Level 135 mmol/L (136-145)
[2023-01-10] MEDS: predniSONE 20 MG Tablet 40 MG PO (07:59)
[2023-01-10] MEDS: Aspirin E.C. 81 MG Tablet PO (07:59)
[2023-01-10] MEDS: Gabapentin 100 MG Capsule 200 MG PO ×3 (08:01→18:12)
--- NOTE | 2023-01-10 08:42 | PCM.PN.HOSP ---
Subjective Subjective Doing well today, no issues overnight. Awaiting lab work to decide on tunneled catheter and hemodialysis or not Objective Data Objective Data Vital Signs: Vital Signs Temp Pulse Resp BP Pulse Ox O2 Del Method O2 Flow Rate 98.1 F 79 18 144/57 H 94 Nasal Cannula 2 01/10/23 07:56 01/10/23 07:56 01/10/23 07:56 01/10/23 07:56 01/10/23 07:56 01/10/23 07:56 01/10/23 07:56 FiO2 2 01/08/23 02:30 Oxygen Flow Rate (L/min) 2 Oxygen Delivery Method Nasal Cannula Weight: 174 lb 13.225 oz Body Mass Index (BMI) 29.0 Intake & Output: Intake and Output for Last 24 Hours 01/09/23 01/10/23 01/11/23 03:59 03:59 03:59 Intake Total 1842.5 / 1842.5 400 / 400 Output Total 1750 / 1750 1750 / 1750 300 / 300 Balance 92.5 / 92.5 -1350 / -1350 -300 / -300 Lab / Micro Data 01/10/23 06:07 01/10/23 06:07 Labs: Laboratory Results - last 24 hr 01/09/23 11:16: POC Glucose 344 H 01/09/23 16:36: POC Glucose 422 H 01/09/23 21:34: POC Glucose 423 H 01/10/23 05:40: POC Glucose 268 H 01/10/23 06:07: WBC 15.8 H, RBC 3.33 L, Hgb 9.2 L, Hct 30.2 L, MCV 90.7, MCH 27.6, MCHC 30.5 L, RDW Std Deviation 55.2 H, RDW Coeff of Audi 16.6 H, Plt Count 228, MPV 10.3, Immature Gran % (Auto) 1.300 H, Neut % (Auto) 79.8 H, Lymph % (Auto) 11.3 L, [place] % (Auto) 7.4, Eos % (Auto) 0.1, Baso % (Auto) 0.1, Absolute Neuts (auto) 12.6 H, Absolute Lymphs (auto) 1.78, Nucleated RBC % 0, Sodium 135 L, Potassium 4.2, Chloride 104, Carbon Dioxide 21.0, Anion Gap 10, BUN 114 H*, Creatinine 4.46 H, Estim Creat Clear Calc 12.45, Est GFR (MDRD) Af Amer 17 L, Est GFR (MDRD) Non-Af 14 L, BUN/Creatinine Ratio 25.6 H, Glucose 265 H, Calcium 8.7 Micro: Microbiology 12/30/22 16:33 Blood Culture (Wb) - Anticubital Left Blood Culture - Final No growth in 5 days. 12/30/22 16:33 Blood Culture (Wb) - Left Hand Blood Culture - Final No growth in 5 days. 01/01/23 08:45 Sputum, Expectorated/Coughed Gram Stain - Final 01/01/23 08:45 Sputum, Expectorated/Coughed Respiratory Culture - Final Achromobacter xylosoxidans 12/30/22 17:25 Urine, Catheterized Urine Culture - Final Presumptive E. coli 12/31/22 03:40 Mucosa - Nose Respiratory Panel (PCR) - Final 12/31/22 04:30 Urine Catheter - Catheter Legionella Antigen - Final 12/31/22 04:30 Urine Catheter - Catheter Streptococcus pneumoniae Antigen (M - Final 12/31/22 03:00 Nasal Secretion SARS-CoV-2 Antigen (Rapid) - Final Physical Exam Narrative General: Alert, Oriented x3, Cooperative, No apparent distress HEENT: Atraumatic, PERRLA, EOMI, Normocephalic Oral: Moist Mucosa Neck: Supple, No JVD, dialysis catheter in his right neck Lungs: Diminished, Normal air movement, No rhonchi, No wheeze, No rales Cardiovascular: Regular rate, Regular Rhythm, Normal S1, Normal S2, No murmurs Abdomen: Soft, Non Tender, Non-Distended, No Hepato-splenomegaly Extremities: No edema, Capillary Refill Less than 3 Seconds Skin: No rashes, No breakdown Musculoskeletal: No Tenderness to Palpation of Joints or Extremities Neurological: Motor Exam 5/5 strength throughout, Sensory exam intact to light touch and pain, nonfocal Psych/Mental Status: Normal Affect, Appropriate Assessment & Plan Assessment/Plan (1) Acute kidney injury: PLAN: 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 Admission creatinine 7.4. Started on CRRT on 12/31 w femoral line. Transitioned to RIJ temporary HD catheter placed and CRRT completed on 01/01. Transitioned to HD. Last HD was 01/03 Immunology work up unremarkable Kidney US negative. If tunneled catheter needed, will need to hold clopidogrel. Received 01/05. Currently on hold. 01/09/2023: Creatinine continues to climb though slowly, he is making urine output we will leave it up to nephrology to decide on trigger for tunneled catheter and hemodialysis 01/10/2023: Awaiting BMP to monitor renal function to decide on dialysis or not (2) Acute urinary obstruction: PLAN: Acute urinary retention 2/2 BPH Gonzalez catheter in place. Continue tamsulosin 01/09/2023: Follow up with urology as outpt. We will leave Gonzalez ice (3) Pneumonia: QUALIFIERS: Pneumonia type: due to unspecified organism Laterality: unspecified laterality Lung location: unspecified part of lung Qualified Code(s): J18.9 - Pneumonia, unspecified organism PLAN: Doubt true infection. SCx positive for Achromobacter xylosoxidans (Gram negative), sensitive to TMP/SMX CXR on 12/31 negative for infiltrate Repeat CXR not suggestive of pneumonia on 01/05 (4) UTI (urinary tract infection): QUALIFIERS: Urinary tract infection type: acute cystitis Hematuria presence: without hematuria Qualified Code(s): N30.00 - Acute cystitis without hematuria PLAN: E. coli, chin-sensitive on UCx Completed CTX (12/31-) (5) COPD exacerbation: PLAN: Improving Continue BDs Change methylprednisolone to prednisone burst. 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 ISS. Accuchecks ACHS.on gabapentin, will monitor and make adjustments as necessary hypertension: on carvedilol. Hyperlipidemia: on statin CAD: s/p CABG. On aspirin and statin. Clopidogrel held. Anemia: stable. Transfuse if Hb <7. Will monitor Depression; on sertraline. DVT: Heparin Charges/Coding Visit Charges Inpatient E&M: 46038 Subs Hosp L2
[2023-01-10] MEDS: 0.9% Normal Saline 1,000 ML IV.SOLN. 1000 ML OPERA.SITE (09:40)
[2023-01-10] MEDS: PureFlow B 2K Dialysis Soln 1 BAG 6 BAG PF (09:41)
[2023-01-10] MEDS: 0.9% Saline Lock 10 ML Syringe IV (09:41)
[2023-01-10] MEDS: Heparin Injection (Vial) 5,000 UNIT/ML VIAL 5000 UNIT SC ×2 (10:36→21:31)
[2023-01-10 13:38] LABS: Bedside Glucose 186 mg/dL (74-106)
[2023-01-10] MEDS: Menthol/Lanolin/Calamine/Znox 113 GM Tube 1 APPLIC TOPICAL ×2 (14:13→21:28)
[2023-01-10] MEDS: Insulin Lispro 100 UNIT/ML INSULN.PEN 10 UNIT SC (16:57)
[2023-01-10 17:17] LABS: Bedside Glucose 156 mg/dL (74-106)
--- NOTE | 2023-01-10 18:56 | PCM.PN.REN ---
Subjective Subjective no new complaints. urine output is good. however BUN and cr remains high Objective Data Objective Data Vital Signs: Vital Signs Temp Pulse Resp BP Pulse Ox O2 Del Method O2 Flow Rate 97.4 F L 73 13 139/56 H 100 Nasal Cannula 2 01/10/23 12:37 01/10/23 12:37 01/10/23 12:37 01/10/23 12:37 01/10/23 12:37 01/10/23 14:38 01/10/23 14:38 FiO2 2 01/08/23 02:30 Oxygen Flow Rate (L/min) 2 Oxygen Delivery Method Nasal Cannula Weight: 78.4 kg Body Mass Index (BMI) 28.8 Intake & Output: Intake and Output for Last 24 Hours 01/08/23 01/09/23 01/10/23 23:59 23:59 23:59 Intake Total 1842.5 / 1842.5 400 / 400 Output Total 2200 / 2200 1250 / 1750 2350 / 2350 Balance -357.5 / -357.5 -850 / -1350 -2350 / -2350 Lab / Micro Data 01/10/23 06:07 01/10/23 06:07 Labs: Laboratory Results - last 24 hr 01/09/23 21:34: POC Glucose 423 H 01/10/23 05:40: POC Glucose 268 H 01/10/23 06:07: WBC 15.8 H, RBC 3.33 L, Hgb 9.2 L, Hct 30.2 L, MCV 90.7, MCH 27.6, MCHC 30.5 L, RDW Std Deviation 55.2 H, RDW Coeff of Audi 16.6 H, Plt Count 228, MPV 10.3, Immature Gran % (Auto) 1.300 H, Neut % (Auto) 79.8 H, Lymph % (Auto) 11.3 L, [place] % (Auto) 7.4, Eos % (Auto) 0.1, Baso % (Auto) 0.1, Absolute Neuts (auto) 12.6 H, Absolute Lymphs (auto) 1.78, Nucleated RBC % 0, Sodium 135 L, Potassium 4.2, Chloride 104, Carbon Dioxide 21.0, Anion Gap 10, BUN 114 H*, Creatinine 4.46 H, Estim Creat Clear Calc 12.45, Est GFR (MDRD) Af Amer 17 L, Est GFR (MDRD) Non-Af 14 L, BUN/Creatinine Ratio 25.6 H, Glucose 265 H, Calcium 8.7 01/10/23 10:34: POC Glucose 186 H 01/10/23 16:52: POC Glucose 156 H Micro: Microbiology 12/30/22 16:33 Blood Culture (Wb) - Anticubital Left Blood Culture - Final No growth in 5 days. 12/30/22 16:33 Blood Culture (Wb) - Left Hand Blood Culture - Final No growth in 5 days. 01/01/23 08:45 Sputum, Expectorated/Coughed Gram Stain - Final 01/01/23 08:45 Sputum, Expectorated/Coughed Respiratory Culture - Final Achromobacter xylosoxidans 12/30/22 17:25 Urine, Catheterized Urine Culture - Final Presumptive E. coli 12/31/22 03:40 Mucosa - Nose Respiratory Panel (PCR) - Final 12/31/22 04:30 Urine Catheter - Catheter Legionella Antigen - Final 12/31/22 04:30 Urine Catheter - Catheter Streptococcus pneumoniae Antigen (M - Final 12/31/22 03:00 Nasal Secretion SARS-CoV-2 Antigen (Rapid) - Final Physical Exam Narrative Alert and oriented x3, no apparent distress Cardiac: Rhythm and rate regular Respiratory: Lung sounds clear anteriorly and posteriorly GI: Abdomen soft, nontender Gonzalez with clear yellow urine in bag Right IJ non-tunneled HD catheter dressing clean, dry and intact Const Constitutional Narrative: Patient answers simple questions, but has myoclonic jerks and somewhat lethargic General Appearance: well developed Orientation / Consciousness: oriented to person HEENT normocephalic Eyes PERRL Neck no lymphadenopathy Resp Auscultation: crackles right and wheezes GI Auscultation: normoactive bowel sounds Bladder / Kidney Exam: catheter in place Skin no rashes or lesions noted Neuro Sensorium / Orientation: lethargic Psych Memory / Cognition: cognition impaired Assessment & Plan Assessment/Plan (1) Acute hyperkalemia: (2) Acute kidney injury: PLAN: Impression/Plan: 77-year-old male with past medical history significant for diabetes mellitus type 2, CAD status post CABG x1, COPD not on home O2, hypertension [facility] with complaints of generalized weakness. Nephrology consulted for JOHN and hyperkalemia -JOHN superimposed on CKD stage IIIb (SCr 2.05 November 2022). Serum creatinine on admission 7.40 mg/dL. JOHN is likely due to ATN. -Because of JOHN, uremia and hyperkalemia (bicarb 16, K+ peaked 7.4) patient was started on CRRT 12/31 via femoral line. Femoral line was sluggish not functioning well for CRRT therefore femoral line removed and non-tunneled right IJ temporary HD catheter placed. Patient was taken off of CRRT 01/01 at 1050. Patient last had intermittent hemodialysis on 01/03 with no fluid removal. - Serologies ordered: YARELI, p-ANCA, c-ANCA negative, complements normal, SPEP negative. UPC 1394mg/g. Renal US no hydro. CXR clear. -The patient does have urinary retention s/p Gonzalez catheter placement. -BUN and cr remain high. dont think I can send him home with these numbers. will likely take a little longer to recover. resume HD. seen on HD today. dw surgery. tunneled line will be placed. dc plans Hyperphosphatemia. Serum phosphorus is 5.3 mg/dL on 01/07/2023. Hyperphosphatemia is likely due to JOHN/CKD. However, phosphorus not high enough to require phosphorus binder. Phosphorus level is better today at 4.8 mg/dL on 01/09/2023. Will monitor levels.
--- NOTE | 2023-01-10 19:14 | NURSING ---
Reviewed charting with Nicol Tolliver RN
[2023-01-10] MEDS: Insulin Glargine-YFGN 100 UNIT/ML Pen 30 UNIT SC (21:30)
[2023-01-10] MEDS: Carvedilol 3.125 MG TABLET PO (21:31)
[2023-01-10] MEDS: Atorvastatin Calcium 80 MG Tablet PO (21:31)
[2023-01-10 21:53] LABS: Bedside Glucose 418 mg/dL (74-106)
[2023-01-11] VITALS (19 sets, daily range): BP systolic 82–133; BP diastolic 36–81; PULSE 67–92; RESP 14–20; TEMP 36.1–36.9; O2SAT 90–97; BMI 28.8; BMI 29.5
[2023-01-11] MEDS: Insulin Lispro 100 UNIT/ML INSULN.PEN SC ×2 (02:46→21:25)
[2023-01-11 03:06] LABS: Bedside Glucose 281 mg/dL (74-106)
[2023-01-11 05:53] LABS: Anion Gap 6 (5-15); BUN 82 mg/dL (7-18); BUN/Creat Ratio 23.8 RATIO (10-20); Calcium,Total 8.5 mg/dL (8.5-10.1); Chloride 108 mmol/L (98-107); Creatinine, Serum 3.45 mg/dL (0.70-1.30); EST Glomerular Filtration Rate 19 mL/min (>60); Est Glom Filt Rate - Afr Amer 22 mL/min (>60); Estimated Creatinine Clearance 16.09 ml/min; Glucose 172 mg/dL (74-106); Sodium Level 140 mmol/L (136-145)
[2023-01-11] MEDS: HYDROcodone Bitartrate/Apap 5/325 Tablet PO ×3 (06:11→21:36)
[2023-01-11 06:42] LABS: Bedside Glucose 150 mg/dL (74-106)
[2023-01-11] MEDS: Budesonide Respules 0.5 MG/2 ML AMPUL.NEB. INHALATION ×2 (06:51→18:50)
--- NOTE | 2023-01-11 08:21 | PCM.PN.SRG ---
Subjective Subjective Temporary dialysis catheter removed yesterday after dialysis. Objective Data Objective Data Vital Signs: Vital Signs Temp Pulse Resp BP Pulse Ox O2 Del Method O2 Flow Rate 98.0 F 73 18 128/55 H 94 Nasal Cannula 2 01/11/23 07:35 01/11/23 07:35 01/11/23 07:35 01/11/23 07:35 01/11/23 07:35 01/11/23 07:40 01/11/23 07:40 FiO2 2 01/08/23 02:30 Oxygen Flow Rate (L/min) 2 Oxygen Delivery Method Nasal Cannula Weight: 173 lb 1.006 oz Body Mass Index (BMI) 28.8 Intake & Output: Intake and Output for Last 24 Hours 01/09/23 01/10/23 01/11/23 23:59 23:59 23:59 Intake Total 400 / 400 400 / 400 Output Total 1250 / 1750 3200 / 4200 1500 / 1500 Balance -850 / -1350 -2800 / -3800 -1500 / -1500 Lab / Micro Data 01/10/23 06:07 01/11/23 04:56 Labs: Laboratory Results - last 24 hr 01/10/23 10:34: POC Glucose 186 H 01/10/23 16:52: POC Glucose 156 H 01/10/23 21:26: POC Glucose 418 H 01/11/23 02:44: POC Glucose 281 H 01/11/23 04:56: Sodium 140, Potassium 4.0, Chloride 108 H, Carbon Dioxide 26.0, Anion Gap 6, BUN 82 H, Creatinine 3.45 H, Estim Creat Clear Calc 16.09, Est GFR (MDRD) Af Amer 22 L, Est GFR (MDRD) Non-Af 19 L, BUN/Creatinine Ratio 23.8 H, Glucose 172 H, Calcium 8.5 01/11/23 06:13: POC Glucose 150 H Micro: Microbiology 12/30/22 16:33 Blood Culture (Wb) - Anticubital Left Blood Culture - Final No growth in 5 days. 12/30/22 16:33 Blood Culture (Wb) - Left Hand Blood Culture - Final No growth in 5 days. 01/01/23 08:45 Sputum, Expectorated/Coughed Gram Stain - Final 01/01/23 08:45 Sputum, Expectorated/Coughed Respiratory Culture - Final Achromobacter xylosoxidans 12/30/22 17:25 Urine, Catheterized Urine Culture - Final Presumptive E. coli 12/31/22 03:40 Mucosa - Nose Respiratory Panel (PCR) - Final 12/31/22 04:30 Urine Catheter - Catheter Legionella Antigen - Final 12/31/22 04:30 Urine Catheter - Catheter Streptococcus pneumoniae Antigen (M - Final 12/31/22 03:00 Nasal Secretion SARS-CoV-2 Antigen (Rapid) - Final Physical Exam Narrative Right neck dressed clean dry and intact Const oriented x3 and no apparent distress Resp normal respiratory effort Cardio regular rate Assessment & Plan Assessment/Plan (1) Acute hyperkalemia: (2) Acute kidney injury: PLAN: Plan Insertion tunneled dialysis catheter today about 1 PM. Discussed procedure with patient and no further questions at this time. Alix Koenig M.D. Pager: [phone] [facility] [address] [place] [address], [facility], [address] [place] [address] Office: [phone]
--- NOTE | 2023-01-11 08:50 | PN.HOSP_ITS ---
Subjective Subjective Doing well, no issues overnight. His temporary dialysis catheter was removed in anticipation of a tunneled dialysis catheter today around 1 PM Objective Data Objective Data Vital Signs: Vital Signs Temp Pulse Resp BP Pulse Ox O2 Del Method O2 Flow Rate 98.5 F 71 19 H 100/81 H 95 Nasal Cannula 2 01/11/23 08:33 01/11/23 08:33 01/11/23 08:33 01/11/23 08:33 01/11/23 08:33 01/11/23 08:33 01/11/23 08:33 FiO2 2 01/08/23 02:30 Oxygen Flow Rate (L/min) 2 Oxygen Delivery Method Nasal Cannula Weight: 173 lb 1.006 oz Body Mass Index (BMI) 28.8 Intake & Output: Intake and Output for Last 24 Hours 01/10/23 01/11/23 01/12/23 03:59 03:59 03:59 Intake Total 400 / 400 400 / 400 Output Total 1750 / 1750 3700 / 3700 500 / 500 Balance -1350 / -1350 -3300 / -3300 -500 / -500 Lab / Micro Data 01/10/23 06:07 01/11/23 04:56 Labs: Laboratory Results - last 24 hr 01/10/23 10:34: POC Glucose 186 H 01/10/23 16:52: POC Glucose 156 H 01/10/23 21:26: POC Glucose 418 H 01/11/23 02:44: POC Glucose 281 H 01/11/23 04:56: Sodium 140, Potassium 4.0, Chloride 108 H, Carbon Dioxide 26.0, Anion Gap 6, BUN 82 H, Creatinine 3.45 H, Estim Creat Clear Calc 16.09, Est GFR (MDRD) Af Amer 22 L, Est GFR (MDRD) Non-Af 19 L, BUN/Creatinine Ratio 23.8 H, Glucose 172 H, Calcium 8.5 01/11/23 06:13: POC Glucose 150 H Micro: Microbiology 12/30/22 16:33 Blood Culture (Wb) - Anticubital Left Blood Culture - Final No growth in 5 days. 12/30/22 16:33 Blood Culture (Wb) - Left Hand Blood Culture - Final No growth in 5 days. 01/01/23 08:45 Sputum, Expectorated/Coughed Gram Stain - Final 01/01/23 08:45 Sputum, Expectorated/Coughed Respiratory Culture - Final Achromobacter xylosoxidans 12/30/22 17:25 Urine, Catheterized Urine Culture - Final Presumptive E. coli 12/31/22 03:40 Mucosa - Nose Respiratory Panel (PCR) - Final 12/31/22 04:30 Urine Catheter - Catheter Legionella Antigen - Final 12/31/22 04:30 Urine Catheter - Catheter Streptococcus pneumoniae Antigen (M - Final 12/31/22 03:00 Nasal Secretion SARS-CoV-2 Antigen (Rapid) - Final Physical Exam Narrative General: Alert, Oriented x3, Cooperative, No apparent distress HEENT: Atraumatic, PERRLA, EOMI, Normocephalic Oral: Moist Mucosa Neck: Supple, No JVD Lungs: Diminished, Normal air movement, No rhonchi, No wheeze, No rales Cardiovascular: Regular rate, Regular Rhythm, Normal S1, Normal S2, No murmurs Abdomen: Soft, Non Tender, Non-Distended, No Hepato-splenomegaly Extremities: No edema, Capillary Refill Less than 3 Seconds Skin: No rashes, No breakdown Musculoskeletal: No Tenderness to Palpation of Joints or Extremities Neurological: Motor Exam 5/5 strength throughout, Sensory exam intact to light touch and pain, nonfocal Psych/Mental Status: Normal Affect, Appropriate Assessment & Plan Assessment/Plan (1) Acute kidney injury: PLAN: 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 Admission creatinine 7.4. Started on CRRT on 12/31 w femoral line. Transitioned to [facility] temporary HD catheter placed and CRRT completed on 01/01. Transitioned to HD. Last HD was 01/03 Immunology work up unremarkable Kidney US negative. If tunneled catheter needed, will need to hold clopidogrel. Received 01/05. Currently on hold. 01/09/2023: Creatinine continues to climb though slowly, he is making urine output we will leave it up to nephrology to decide on trigger for tunneled catheter and hemodialysis 01/10/2023: Awaiting BMP to monitor renal function to decide on dialysis or not 01/11/2023: Creatinine is down to 3.45 today BUN is improved anticipate tunneled dialysis catheter today (2) Acute urinary obstruction: PLAN: Acute urinary retention 2/2 B[address] catheter in [address] Continue tamsulosin 01/09/2023: Follow up with urology as outpt. We will leave Gonzalez in place (3) Pneumonia: QUALIFIERS: Pneumonia type: due to unspecified organism Laterality: unspecified laterality Lung location: unspecified part of lung Qualified Code(s): J18.9 - Pneumonia, unspecified organism PLAN: Doubt true infection. SCx positive for Achromobacter xylosoxidans (Gram negative), sensitive to TMP/SMX CXR on 12/31 negative for infiltrate Repeat CXR not suggestive of pneumonia on 01/05 (4) UTI (urinary tract infection): QUALIFIERS: Urinary tract infection type: acute cystitis Hematuria presence: without hematuria Qualified Code(s): N30.00 - Acute cystitis without hematuria PLAN: E. coli, chin-sensitive on UCx Completed CTX (12/31-) (5) COPD exacerbation: PLAN: Improving Continue BDs Change methylprednisolone to prednisone burst. 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 ISS. Accuchecks ACHS.on gabapentin, will monitor and make adjustments as necessary * hypertension: on carvedilol. * Hyperlipidemia: on statin * CAD: s/p CABG. On aspirin and statin. Clopidogrel held. * Anemia: stable. Transfuse if Hb <7. Will monitor * Depression; on sertraline. DVT: Heparin Charges/Coding Visit Charges Inpatient E&M: 14041 Subs Hosp L2
[2023-01-11 08:57] LABS: Bedside Glucose 104 mg/dL (74-106)
[2023-01-11 12:07] LABS: Bedside Glucose 115 mg/dL (74-106)
[2023-01-11] MEDS: Cefazolin 2 GM in 0.9% Normal Saline 100 ML IV (12:57)
[2023-01-11] MEDS: Bupivacaine 0.25% 30 ML Vial (13:20)
[2023-01-11] MEDS: Heparin 10,000 UNITS/10 ML Vial 10000 UNITS (13:20)
[2023-01-11] MEDS: Lidocaine 1% /Epi 1:100 (20ml) 20 ML Vial (13:20)
--- NOTE | 2023-01-11 13:31 | PCM.OPRPT ---
Report of Operation Date of Procedure: 01/11/23 Pre-Operative Diagnosis: Acute kidney failure Post-Operative Diagnosis: Same Surgery/Procedure Performed:: Insertion of right IJ tunneled dialysis catheter Use of fluoroscopy Use of ultrasound Surgeon: Alix Koenig Type of Anesthesia: Local MAC Anesthesiologist: Bartolo Westbrook Special Medications: Ancef 2 g IV x1 Estimated Blood Loss (mL): < 10 cc Description of Procedure: After informed consent was given, the patient was brought to the operating room and placed in the supine position. Appropriate time out protocol was followed. He was then given IV conscious sedation for anesthesia. The patient's right upper chest and neck were then prepped with a surgical skin preparation and sterile surgical drapes were placed. After proper landmarks were ascertained, the skin at the upper right chest area was then infiltrated with 1% lidocaine with epinephrine A needle trocar was then inserted into the right internal jugular vein with ultrasound guidance-multiple vessels were viewed with u/s and the right IJ was chosen-- and there was good aspiration of venous blood. A wire was then threaded into the needle trocar and this was visualized under fluoroscopy to ensure that the wire was in the superior vena cava. Once this was done, then the needle trocar was removed. A small incision was made with an 11 blade knife at the wire entrance site. The dilator x2 with the introducer sheath attached was then placed over the wire into the right internal jugular vein via the Seldinger technique and this was visualized under fluoroscopy. Next the introducer and sheath were in proper position as visualized by fluoroscopy. The location of the cuffed was estimated on the skin, an incision was made with a 15 blade scalpel. The 14.5 Fr x 19 cm Palindrome dual lumen (Lot [id number] reference [id number]) was tunneled from the chest incision to the right neck incision. The sheath was removed. The catheter was placed through the introducer and was positioned with its tip at the junction of the superior vena cava and the right atrium as visualized under fluoroscopy. The cuff of the catheter was in the subcutaneous tissue. The catheter flushed and tonya well with saline. Catheter was also flushed with 1.6 cc of 1-10,000 of heparin. Hemostasis was assured. Silver dressing was placed at the catheter exit site. Catheter was sutured with 3-0 nylon sutures. The neck incision was sutured with interrupted 3-0 Vicryl interrupted sutures x2 and Steri-Strips were placed. A large OpSite was placed over the catheter site and a small OpSite over the neck incision. The patient tolerated the procedure well. Grafts/Implants Used: 14.5 Fr x 19 cm Palindrome dual lumen (Lot [id number] reference [id number] Complications none
--- NOTE | 2023-01-11 13:51 | RAD_ITS ---
STUDY: X-RAY CHEST REASON FOR EXAM: Male, 77 years old. Dialysis catheter -- pacu TECHNIQUE: Single AP portable view of the chest. COMPARISON: Comparison is made with prior study January 05, 2023. FINDINGS: A right-sided temporary dialysis catheter has been placed with the tip at the junction of the superior vena cava and right atrium. EKG electrodes are seen. The lungs are clear and expanded. There is no demonstrated pleural abnormality. Sternal cerclage wires and vascular clips are present from a prior sternotomy and coronary artery bypass graft procedure (CABG). Borderline cardiomegaly. Normal mediastinum and loco. Normal visualized pulmonary arteries. Normal visualized aortic arch and descending thoracic aorta. Normal visualized thoracic spine. Normal visualized ribs, clavicles, and shoulders. There is no demonstrated abnormality of the visualized soft tissue structures of the upper abdomen. RAD/Chest 1 View (Portable) IMPRESSION: The tip of the temporary dialysis catheter is at the junction of the superior vena cava and right atrium. Electronically Signed: Randolph Joyce MD at 14:28 EDT ,
--- NOTE | 2023-01-11 15:30 | CASEMGMT ---
REGLA GUTIERREZ notified that patient will need outpatient HD at discharge. REGLA CM in to discuss outpatient HD setup. Patient prefers [facility] for outpatient HD. [facility]RE[email or web address] CM will continue to follow this patient and plan for a safe discharge.
[2023-01-11] MEDS: Menthol/Lanolin/Calamine/Znox 113 GM Tube 1 APPLIC TOPICAL ×2 (15:44→21:25)
[2023-01-11] MEDS: predniSONE 20 MG Tablet 40 MG PO (15:52)
[2023-01-11] MEDS: Sertraline 100 MG Tablet PO (15:52)
[2023-01-11] MEDS: Senna/Docusate Sodium 1 Tablet 2 TABLET PO ×2 (15:52→21:26)
--- NOTE | 2023-01-11 16:37 | PCM.PN.REN ---
Subjective Subjective No new complaints today. Objective Data Objective Data Vital Signs: Vital Signs Temp Pulse Resp BP Pulse Ox O2 Del Method O2 Flow Rate 97.6 F L 73 18 133/58 H 94 Nasal Cannula 2 01/11/23 14:41 01/11/23 14:41 01/11/23 14:41 01/11/23 14:41 01/11/23 14:41 01/11/23 14:48 01/11/23 14:41 FiO2 2 01/08/23 02:30 Oxygen Flow Rate (L/min) 2 Oxygen Delivery Method Nasal Cannula Weight: 78.5 kg Body Mass Index (BMI) 28.8 Intake & Output: Intake and Output for Last 24 Hours 01/09/23 01/10/23 01/11/23 23:59 23:59 23:59 Intake Total 400 / 400 400 / 400 166.75 / 166.75 Output Total 1250 / 1750 3200 / 4200 1974 / 1974 Balance -850 / -1350 -2800 / -3800 -1808.25 / -1808.25 Lab / Micro Data 01/10/23 06:07 01/11/23 04:56 Labs: Laboratory Results - last 24 hr 01/10/23 16:52: POC Glucose 156 H 01/10/23 21:26: POC Glucose 418 H 01/11/23 02:44: POC Glucose 281 H 01/11/23 04:56: Sodium 140, Potassium 4.0, Chloride 108 H, Carbon Dioxide 26.0, Anion Gap 6, BUN 82 H, Creatinine 3.45 H, Estim Creat Clear Calc 16.09, Est GFR (MDRD) Af Amer 22 L, Est GFR (MDRD) Non-Af 19 L, BUN/Creatinine Ratio 23.8 H, Glucose 172 H, Calcium 8.5 01/11/23 06:13: POC Glucose 150 H 01/11/23 08:30: POC Glucose 104 01/11/23 11:49: POC Glucose 115 H Micro: Microbiology 12/30/22 16:33 Blood Culture (Wb) - Anticubital Left Blood Culture - Final No growth in 5 days. 12/30/22 16:33 Blood Culture (Wb) - Left Hand Blood Culture - Final No growth in 5 days. 01/01/23 08:45 Sputum, Expectorated/Coughed Gram Stain - Final 01/01/23 08:45 Sputum, Expectorated/Coughed Respiratory Culture - Final Achromobacter xylosoxidans 12/30/22 17:25 Urine, Catheterized Urine Culture - Final Presumptive E. coli 12/31/22 03:40 Mucosa - Nose Respiratory Panel (PCR) - Final 12/31/22 04:30 Urine Catheter - Catheter Legionella Antigen - Final 12/31/22 04:30 Urine Catheter - Catheter Streptococcus pneumoniae Antigen (M - Final 12/31/22 03:00 Nasal Secretion SARS-CoV-2 Antigen (Rapid) - Final Radiography Diagnostic Testing: Radiology Impression Chest X-Ray 01/11/23 13:51 IMPRESSION: The tip of the temporary dialysis catheter is at the junction of the superior vena cava and right atrium. Electronically Signed: Randolph Joyce MD at 14:28 EDT , Physical Exam Narrative Alert and oriented x3, no apparent distress Cardiac: Rhythm and rate regular Respiratory: Lung sounds clear anteriorly and posteriorly GI: Abdomen soft, nontender Gonzalez with clear yellow urine in bag Const Constitutional Narrative: Patient answers simple questions, but has myoclonic jerks and somewhat lethargic General Appearance: well developed Orientation / Consciousness: oriented to person HEENT normocephalic Eyes PERRL Neck no lymphadenopathy Resp Auscultation: crackles right and wheezes GI Auscultation: normoactive bowel sounds Bladder / Kidney Exam: catheter in place Skin no rashes or lesions noted Neuro Sensorium / Orientation: lethargic Psych Memory / Cognition: cognition impaired Assessment & Plan Assessment/Plan (1) Acute hyperkalemia: (2) Acute kidney injury: PLAN: Impression/Plan: 77-year-old male with past medical history significant for diabetes mellitus type 2, CAD status post CABG x1, COPD not on home O2, [facility] with complaints of generalized weakness. Nephrology consulted for JOHN and hyperkalemia -JOHN superimposed on CKD stage IIIb (SCr 2.05 November 2022). Serum creatinine on admission 7.40 mg/dL. JOHN is likely due to ATN. -Because of JOHN, uremia and hyperkalemia (bicarb 16, K+ peaked 7.4) patient was started on CRRT 12/31 via femoral line. Femoral line was sluggish not functioning well for CRRT therefore femoral line removed and non-tunneled right IJ temporary HD catheter placed. Patient was taken off of CRRT 01/01 at 1050. Patient last had intermittent hemodialysis on 01/03 with no fluid removal. - Serologies ordered: YARELI, p-ANCA, c-ANCA negative, complements normal, SPEP negative. UPC 1394mg/g. Renal US no hydro. CXR clear. -The patient does have urinary retention s/p Gonzalez catheter placement. -BUN and cr remain high. Restarted dialysis 01/10/2023. Will maintain a Monday, , Monday schedule. Right IJ temporary dialysis catheter has been removed yesterday. He is on scheduled for a tunneled dialysis catheter placement today. Okay to make discharge plans. Diagnosis is acute renal failure. Hyperphosphatemia. Stable
[2023-01-11] MEDS: Gabapentin 100 MG Capsule 200 MG PO (16:57)
[2023-01-11 17:16] LABS: Hepatitis B Surface Antigen Non-Reactive (Nonreactive)
[2023-01-11 17:16] LABS: Bedside Glucose 129 mg/dL (74-106)
[2023-01-11] MEDS: Albuterol 2.5 MG/3 ML VIAL.NEB. INHALATION (18:50)
[2023-01-11] MEDS: Carvedilol 3.125 MG TABLET PO (21:25)
[2023-01-11] MEDS: Insulin Glargine-YFGN 100 UNIT/ML Pen 30 UNIT SC (21:26)
[2023-01-11] MEDS: Polyethylene Glycol 3350 17 GM PACKET PO (21:27)
[2023-01-11] MEDS: Atorvastatin Calcium 80 MG Tablet PO (21:27)
[2023-01-12] VITALS (12 sets, daily range): BP systolic 123–217; BP diastolic 39–59; PULSE 64–88; RESP 12–18; TEMP 36.2–37.2; O2SAT 96–100; BMI 29.0; BMI 28.3
[2023-01-12 01:30] LABS: Bedside Glucose 392 mg/dL (74-106)
[2023-01-12] MEDS: Insulin Lispro 100 UNIT/ML INSULN.PEN SC ×4 (02:33→22:26)
[2023-01-12 02:53] LABS: Bedside Glucose 403 mg/dL (74-106)
[2023-01-12 06:15] LABS: Absolute Lymphocyte Count 1.66 X10^3/uL (0.83-4.51); Absolute Neutrophil Count 12.7 X10^3/uL (2.0-7.7); Basophil# 0.02 X10^3/uL; Basophil% 0.1 % (0-1); Hematocrit 29.4 % (40-54); Hemoglobin 8.9 g/dL (13.0-16.5); Lymphocyte # 1.66 X10^3/ul (0.83-4.51); Lymphocyte % 10.6 % (19-41); Mean Corp Hgb Conc 30.3 g/dL (32-36); Mean Corpuscular Hgb 27.6 pg (27.0-32.0); Mean Corpuscular Volume 91.3 fL (80-94); Mean Platelet Vol. 10.4 fl (6.2-12.0); Monocyte# 1.08 X10^3/uL; Monocyte% 6.9 % (0-10); NRBC Flagged by Analyzer 0 % (0-5); Neutrophil # 12.65 X10^3/uL (2.7-7.7); Neutrophil % 80.9 % (47-70); Platelet Count 217 K/mm3 (150-450); RBC Distribution Width CV 17.1 % (11.6-14.6); RBC Distribution Width SD 57.1 fl (35.1-43.9); Red Blood Count 3.22 M/mm3 (4.6-6.2); White Blood Count 15.7 K/mm3 (4.4-11.0)
[2023-01-12 06:50] LABS: Anion Gap 5 (5-15); BUN 92 mg/dL (7-18); BUN/Creat Ratio 23.7 RATIO (10-20); Calcium,Total 8.4 mg/dL (8.5-10.1); Chloride 110 mmol/L (98-107); Creatinine, Serum 3.89 mg/dL (0.70-1.30); EST Glomerular Filtration Rate 16 mL/min (>60); Est Glom Filt Rate - Afr Amer 20 mL/min (>60); Estimated Creatinine Clearance 14.27 ml/min; Glucose 215 mg/dL (74-106); Potassium 4.7 mmol/L (3.5-5.1); Sodium Level 141 mmol/L (136-145)
[2023-01-12] MEDS: Albuterol 2.5 MG/3 ML VIAL.NEB. INHALATION (07:18)
[2023-01-12] MEDS: Budesonide Respules 0.5 MG/2 ML AMPUL.NEB. INHALATION (07:18)
[2023-01-12 08:18] LABS: Bedside Glucose 154 mg/dL (74-106)
[2023-01-12] MEDS: 0.9% Normal Saline 1,000 ML IV.SOLN. 1000 ML OPERA.SITE (08:35)
[2023-01-12] MEDS: PureFlow B 2K Dialysis Soln 1 BAG 6 BAG PF (08:36)
[2023-01-12] MEDS: 0.9% Saline Lock 10 ML Syringe IV ×2 (08:36→10:05)
--- NOTE | 2023-01-12 08:50 | PN.HOSP_ITS ---
Subjective Subjective Doing well, receiving dialysis today. No issues overnight Objective Data Objective Data Vital Signs: Vital Signs Temp Pulse Resp BP Pulse Ox O2 Del Method O2 Flow Rate 98.9 F 67 12 138/39 H 100 Nasal Cannula 2 01/12/23 03:23 01/12/23 08:30 01/12/23 08:30 01/12/23 08:30 01/12/23 08:30 01/12/23 08:30 01/12/23 08:30 FiO2 2 01/08/23 02:30 Oxygen Flow Rate (L/min) 2 Oxygen Delivery Method Nasal Cannula Weight: 174 lb 9.698 oz Body Mass Index (BMI) 29.0 Intake & Output: Intake and Output for Last 24 Hours 01/11/23 01/12/23 01/13/23 03:59 03:59 03:59 Intake Total 400 / 400 736.75 / 736.75 100 / 100 Output Total 3700 / 3700 1625 / 1625 300 / 300 Balance -3300 / -3300 -888.25 / -888.25 -200 / -200 Lab / Micro Data 01/12/23 05:32 01/12/23 05:32 Labs: Laboratory Results - last 24 hr 01/11/23 06:07: Hep Bs Antigen Non-Reactive 01/11/23 08:30: POC Glucose 104 01/11/23 11:49: POC Glucose 115 H 01/11/23 16:56: POC Glucose 129 H 01/11/23 21:22: POC Glucose 392 H 01/12/23 02:32: POC Glucose 403 H 01/12/23 05:32: WBC 15.7 H, RBC 3.22 L, Hgb 8.9 L, Hct 29.4 L, MCV 91.3, MCH 27.6, MCHC 30.3 L, RDW Std Deviation 57.1 H, RDW Coeff of Audi 17.1 H, Plt Count 217, MPV 10.4, Immature Gran % (Auto) 1.500 H, Neut % (Auto) 80.9 H, Lymph % (Auto) 10.6 L, Coal % (Auto) 6.9, Eos % (Auto) 0.0, Baso % (Auto) 0.1, Absolute Neuts (auto) 12.7 H, Absolute Lymphs (auto) 1.66, Nucleated RBC % 0, Sodium 141, Potassium 4.7, Chloride 110 H, Carbon Dioxide 26.0, Anion Gap 5, BUN 92 H, Creatinine 3.89 H, Estim Creat Clear Calc 14.27, Est GFR (MDRD) Af Amer 20 L, Est GFR (MDRD) Non-Af 16 L, BUN/Creatinine Ratio 23.7 H, Glucose 215 H, Calcium 8.4 L 01/12/23 07:58: POC Glucose 154 H Micro: Microbiology 12/30/22 16:33 Blood Culture (Wb) - Anticubital Left Blood Culture - Final No growth in 5 days. 12/30/22 16:33 Blood Culture (Wb) - Left Hand Blood Culture - Final No growth in 5 days. 01/01/23 08:45 Sputum, Expectorated/Coughed Gram Stain - Final 01/01/23 08:45 Sputum, Expectorated/Coughed Respiratory Culture - Final Achromobacter xylosoxidans 12/30/22 17:25 Urine, Catheterized Urine Culture - Final Presumptive E. coli 12/31/22 03:40 Mucosa - Nose Respiratory Panel (PCR) - Final 12/31/22 04:30 Urine Catheter - Catheter Legionella Antigen - Final 12/31/22 04:30 Urine Catheter - Catheter Streptococcus pneumoniae Antigen (M - Final 12/31/22 03:00 Nasal Secretion SARS-CoV-2 Antigen (Rapid) - Final Radiography Diagnostic Testing: Radiology Impression Chest X-Ray 01/11/23 13:51 IMPRESSION: The tip of the temporary dialysis catheter is at the junction of the superior vena cava and right atrium. Electronically Signed: Randolph Joyce MD at 14:28 EDT , Physical Exam Narrative General: Alert, Oriented x3, Cooperative, No apparent distress HEENT: Atraumatic, PERRLA, EOMI, Normocephalic Oral: Moist Mucosa Neck: Supple, No JVD Lungs: Diminished, Normal air movement, No rhonchi, No wheeze, No rales Cardiovascular: Regular rate, Regular Rhythm, Normal S1, Normal S2, No murmurs, tunneled dialysis catheter right chest Abdomen: Soft, Non Tender, Non-Distended, No Hepato-splenomegaly Extremities: No edema, Capillary Refill Less than 3 Seconds Skin: No rashes, No breakdown Musculoskeletal: No Tenderness to Palpation of Joints or Extremities Neurological: Motor Exam 5/5 strength throughout, Sensory exam intact to light touch and pain, nonfocal Psych/Mental Status: Normal Affect, Appropriate Assessment & Plan Assessment/Plan (1) Acute kidney injury: PLAN: 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 Admission creatinine 7.4. Started on CRRT on 12/31 w femoral line. Transitioned to RIJ temporary HD catheter placed and CRRT completed on 01/01. Transitioned to HD. Last HD was 01/03 Immunology work up unremarkable Kidney US negative. If tunneled catheter needed, will need to hold clopidogrel. Received 01/05. Currently on hold. 01/09/2023: Creatinine continues to climb though slowly, he is making urine output we will leave it up to nephrology to decide on trigger for tunneled catheter and hemodialysis 01/10/2023: Awaiting BMP to monitor renal function to decide on dialysis or not 01/11/2023: Creatinine is down to 3.45 today BUN is improved anticipate tunneled dialysis catheter today 01/12/2023: Creatinine today is 3.89, receiving dialysis as long as he tolerates today and we can guarantee that he has dialysis spot can plan for discharge in the next 24 to 48 hours pending response to HD (2) Acute urinary obstruction: PLAN: Acute urinary retention 2/2 BPH [address] catheter in place. Continue tamsulosin 01/09/2023: Follow up with urology as outpt. We will leave Gonzalez in place (3) Pneumonia: QUALIFIERS: Pneumonia type: due to unspecified organism Laterality: unspecified laterality Lung location: unspecified part of lung Qualified Code(s): J18.9 - Pneumonia, unspecified organism PLAN: Doubt true infection. SCx positive for Achromobacter xylosoxidans (Gram negative), sensitive to TMP/SMX CXR on 12/31 negative for infiltrate Repeat CXR not suggestive of pneumonia on 01/05 (4) UTI (urinary tract infection): QUALIFIERS: Urinary tract infection type: acute cystitis Hematuria presence: without hematuria Qualified Code(s): N30.00 - Acute cystitis without hematuria PLAN: E. coli, chin-sensitive on UCx Completed CTX (12/31-) (5) COPD exacerbation: PLAN: Improving Continue BDs Change methylprednisolone to prednisone burst. 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 ISS. Accuchecks ACHS.on gabapentin, will monitor and make adjustments as necessary * hypertension: on carvedilol. * Hyperlipidemia: on statin * CAD: s/p CABG. On aspirin and statin. Clopidogrel held. * Anemia: stable. Transfuse if Hb <7. Will monitor * Depression; on sertraline. DVT: Heparin Charges/Coding Visit Charges Inpatient E&M: 77109 Subs Hosp L2
--- NOTE | 2023-01-12 09:56 | PCM.PN.REN ---
Subjective Subjective Seen and examined on dialysis today. No overnight events. Patient reports feeling better overall. Objective Data Objective Data Vital Signs: Vital Signs Temp Pulse Resp BP Pulse Ox O2 Del Method O2 Flow Rate 98.9 F 64 12 151/59 H 100 Nasal Cannula 2 01/12/23 03:23 01/12/23 09:27 01/12/23 09:27 01/12/23 09:27 01/12/23 09:27 01/12/23 09:27 01/12/23 09:27 FiO2 2 01/08/23 02:30 Oxygen Flow Rate (L/min) 2 Oxygen Delivery Method Nasal Cannula Weight: 79.2 kg Body Mass Index (BMI) 29.0 Intake & Output: Intake and Output for Last 24 Hours 01/10/23 01/11/23 01/12/23 23:59 23:59 23:59 Intake Total 400 / 400 736.75 / 736.75 100 / 100 Output Total 3200 / 4200 2625 / 2625 300 / 300 Balance -2800 / -3800 -1888.25 / -1888.25 -200 / -200 Lab / Micro Data 01/12/23 05:32 01/12/23 05:32 Labs: Laboratory Results - last 24 hr 01/11/23 06:07: Hep Bs Antigen Non-Reactive 01/11/23 11:49: POC Glucose 115 H 01/11/23 16:56: POC Glucose 129 H 01/11/23 21:22: POC Glucose 392 H 01/12/23 02:32: POC Glucose 403 H 01/12/23 05:32: WBC 15.7 H, RBC 3.22 L, Hgb 8.9 L, Hct 29.4 L, MCV 91.3, MCH 27.6, MCHC 30.3 L, RDW Std Deviation 57.1 H, RDW Coeff of Audi 17.1 H, Plt Count 217, MPV 10.4, Immature Gran % (Auto) 1.500 H, Neut % (Auto) 80.9 H, Lymph % (Auto) 10.6 L, [place] % (Auto) 6.9, Eos % (Auto) 0.0, Baso % (Auto) 0.1, Absolute Neuts (auto) 12.7 H, Absolute Lymphs (auto) 1.66, Nucleated RBC % 0, Sodium 141, Potassium 4.7, Chloride 110 H, Carbon Dioxide 26.0, Anion Gap 5, BUN 92 H, Creatinine 3.89 H, Estim Creat Clear Calc 14.27, Est GFR (MDRD) Af Amer 20 L, Est GFR (MDRD) Non-Af 16 L, BUN/Creatinine Ratio 23.7 H, Glucose 215 H, Calcium 8.4 L 01/12/23 07:58: POC Glucose 154 H Micro: Microbiology 12/30/22 16:33 Blood Culture (Wb) - Anticubital Left Blood Culture - Final No growth in 5 days. 12/30/22 16:33 Blood Culture (Wb) - Left Hand Blood Culture - Final No growth in 5 days. 01/01/23 08:45 Sputum, Expectorated/Coughed Gram Stain - Final 01/01/23 08:45 Sputum, Expectorated/Coughed Respiratory Culture - Final Achromobacter xylosoxidans 12/30/22 17:25 Urine, Catheterized Urine Culture - Final Presumptive E. coli 12/31/22 03:40 Mucosa - Nose Respiratory Panel (PCR) - Final 12/31/22 04:30 Urine Catheter - Catheter Legionella Antigen - Final 12/31/22 04:30 Urine Catheter - Catheter Streptococcus pneumoniae Antigen (M - Final 12/31/22 03:00 Nasal Secretion SARS-CoV-2 Antigen (Rapid) - Final Radiography Diagnostic Testing: Radiology Impression Chest X-Ray 01/11/23 13:51 IMPRESSION: The tip of the temporary dialysis catheter is at the junction of the superior vena cava and right atrium. Electronically Signed: Randolph Joyce MD at 14:28 EDT , Physical Exam Narrative Alert and oriented x3, no apparent distress S1, S2, RRR Lung sounds clear anteriorly, diminished breath sounds posterior bases. On nasal O2 Abdomen soft, nontender Trace edema bilateral legs Bull with clear urine in bag Tunneled HD catheter dressing clean, dry and intact. Accessed for hemodialysis Assessment & Plan Assessment/Plan (1) Acute hyperkalemia: (2) Acute kidney injury: PLAN: Impression/Plan: 77-year-old male with past medical history significant for diabetes mellitus type 2, CAD status post CABG x1, COPD not on home O2, hypertension [facility] with complaints of generalized weakness. Nephrology consulted for JOHN and hyperkalemia -JOHN superimposed on CKD stage IIIb (SCr 2.05 November 2022). Serum creatinine on admission 7.40 mg/dL. JOHN is likely due to ATN. -Because of JOHN, uremia and hyperkalemia (bicarb 16, K+ peaked 7.4) patient was started on CRRT 12/31 via femoral line. Femoral line was sluggish not functioning well for CRRT therefore femoral line removed and non-tunneled right IJ temporary HD catheter placed. Patient was taken off of CRRT 01/01. Patient last had intermittent hemodialysis on 01/03 with no fluid removal. - Serologies ordered: YARELI, p-ANCA, c-ANCA negative, complements normal, SPEP negative. UPC 1394mg/g. Renal US no hydro. CXR clear. -The patient does have urinary retention s/p Bull catheter placement. To be discharged home with bull -BUN and cr remained high. Restarted dialysis 01/10/2023. Tunneled HD catheter placed. Patient to dialyze today and attempt around 2 L fluid removal as patient/blood pressure tolerates. We will evaluate for dialysis needs tomorrow. -Discharge planning in progress, to arrange for outpatient dialysis at [facility], diagnosis JOHN. Once outpatient dialysis arranged and confirmed with patient then okay for discharge per renal when cleared by primary team.
[2023-01-12] MEDS: Heparin 10,000 UNITS/10 ML Vial IV (10:03)
[2023-01-12] MEDS: Menthol/Lanolin/Calamine/Znox 113 GM Tube 1 APPLIC TOPICAL ×2 (11:27→22:21)
[2023-01-12] MEDS: Gabapentin 100 MG Capsule 200 MG PO ×2 (11:27→18:08)
[2023-01-12] MEDS: Polyethylene Glycol 3350 17 GM PACKET PO (11:28)
[2023-01-12] MEDS: Carvedilol 3.125 MG TABLET PO ×2 (11:28→22:22)
[2023-01-12] MEDS: Insulin Glargine-YFGN 100 UNIT/ML Pen 30 UNIT SC ×2 (11:30→22:27)
--- NOTE | 2023-01-12 11:46 | CASEMGMT ---
REGLA CM called [facility]. Referral made. Awaiting call back for acceptance. CM will continue to follow this patient and plan for a safe discharge. Grace CASTILLON. RN, CM
[2023-01-12] MEDS: Senna/Docusate Sodium 1 Tablet 2 TABLET PO ×2 (12:24→22:22)
[2023-01-12] MEDS: Sertraline 100 MG Tablet PO (12:24)
--- NOTE | 2023-01-12 12:37 | PN.SURG_ITS ---
Subjective Subjective Patient tolerated dialysis well today with the new tunneled dialysis catheter. Patient currently eating has no complaints. Objective Data Objective Data Vital Signs: Vital Signs Temp Pulse Resp BP Pulse Ox O2 Del Method O2 Flow Rate 97.8 F 73 18 132/57 H 97 Nasal Cannula 2 01/12/23 11:22 01/12/23 11:22 01/12/23 11:22 01/12/23 11:22 01/12/23 11:22 01/12/23 11:22 01/12/23 11:22 FiO2 2 01/08/23 02:30 Oxygen Flow Rate (L/min) 2 Oxygen Delivery Method Nasal Cannula Weight: 170 lb 10.205 oz Body Mass Index (BMI) 28.3 Intake & Output: Intake and Output for Last 24 Hours 01/10/23 01/11/23 01/12/23 23:59 23:59 23:59 Intake Total 400 / 400 736.75 / 736.75 460 / 460 Output Total 3200 / 4200 2625 / 2625 4450 / 4450 Balance -2800 / -3800 -1888.25 / -1888.25 -3990 / -3990 Lab / Micro Data 01/12/23 05:32 01/12/23 05:32 Labs: Laboratory Results - last 24 hr 01/11/23 06:07: Hep Bs Antigen Non-Reactive 01/11/23 16:56: POC Glucose 129 H 01/11/23 21:22: POC Glucose 392 H 01/12/23 02:32: POC Glucose 403 H 01/12/23 05:32: WBC 15.7 H, RBC 3.22 L, Hgb 8.9 L, Hct 29.4 L, MCV 91.3, MCH 27.6, MCHC 30.3 L, RDW Std Deviation 57.1 H, RDW Coeff of Audi 17.1 H, Plt Count 217, MPV 10.4, Immature Gran % (Auto) 1.500 H, Neut % (Auto) 80.9 H, Lymph % (Auto) 10.6 L, [place] % (Auto) 6.9, Eos % (Auto) 0.0, Baso % (Auto) 0.1, Absolute Neuts (auto) 12.7 H, Absolute Lymphs (auto) 1.66, Nucleated RBC % 0, Sodium 141, Potassium 4.7, Chloride 110 H, Carbon Dioxide 26.0, Anion Gap 5, BUN 92 H, Creatinine 3.89 H, Estim Creat Clear Calc 14.27, Est GFR (MDRD) Af Amer 20 L, Est GFR (MDRD) Non-Af 16 L, BUN/Creatinine Ratio 23.7 H, Glucose 215 H, Calcium 8.4 L 01/12/23 07:58: POC Glucose 154 H Micro: Microbiology 12/30/22 16:33 Blood Culture (Wb) - Anticubital Left Blood Culture - Final No growth in 5 days. 12/30/22 16:33 Blood Culture (Wb) - Left Hand Blood Culture - Final No growth in 5 days. 01/01/23 08:45 Sputum, Expectorated/Coughed Gram Stain - Final 01/01/23 08:45 Sputum, Expectorated/Coughed Respiratory Culture - Final Achromobacter xylosoxidans 12/30/22 17:25 Urine, Catheterized Urine Culture - Final Presumptive E. coli 12/31/22 03:40 Mucosa - Nose Respiratory Panel (PCR) - Final 12/31/22 04:30 Urine Catheter - Catheter Legionella Antigen - Final 12/31/22 04:30 Urine Catheter - Catheter Streptococcus pneumoniae Antigen (M - Final 12/31/22 03:00 Nasal Secretion SARS-CoV-2 Antigen (Rapid) - Final Radiography Diagnostic Testing: Radiology Impression Chest X-Ray 01/11/23 13:51 IMPRESSION: The tip of the temporary dialysis catheter is at the junction of the superior vena cava and right atrium. Electronically Signed: Randolph Joyce MD at 14:28 EDT Reading Location ID and State: [facility] / [place] , Service support , Physical Exam Narrative Right IJ tunneled dialysis catheter in place no signs of infection Const oriented x3 and no apparent distress Assessment & Plan Assessment/Plan (1) Acute hyperkalemia: (2) Acute kidney injury: PLAN: Plan Tunneled dialysis catheter working well. Follow-up prn. Alix Koenig M.D. Pager: [phone] [facility] [address] [place] [address], Outpatient Pavilion, [address] [place] [address] Office: [phone]
--- NOTE | 2023-01-12 13:41 | CASEMGMT ---
REGLA GUTIERREZ received call back from Tana at [facility]. Patient is scheduled for [facility] on TTS at 9am. REGLA GUTIERREZ updated trust evaluation supervisor and hospitalist. REGLA GUTIERREZ received call back from [facility] and they are able to accept the patient with planned start of care for Monday01/18/23. REGLA GUTIERREZ to update patient. CM will continue to follow this patient and plan for safe discharge.
[2023-01-12] MEDS: HYDROcodone Bitartrate/Apap 5/325 Tablet PO ×2 (14:12→22:22)
[2023-01-12 17:38] LABS: Bedside Glucose 153 mg/dL (74-106)
[2023-01-12] MEDS: Insulin Lispro 100 UNIT/ML INSULN.PEN 10 UNIT SC (18:08)
[2023-01-12 18:35] LABS: Bedside Glucose 342 mg/dL (74-106)
[2023-01-12] MEDS: Atorvastatin Calcium 80 MG Tablet PO (22:22)
[2023-01-12 22:57] LABS: Bedside Glucose 207 mg/dL (74-106)
[2023-01-13 04:01] VITALS: BMI 28.4
[2023-01-13 04:06] VITALS: BP 111/44; PULSE 81; RESP 16; TEMP 36.3; O2SAT 97
[2023-01-13] MEDS: Insulin Lispro 100 UNIT/ML INSULN.PEN SC ×2 (04:12→11:44)
[2023-01-13 05:05] LABS: Absolute Lymphocyte Count 2.48 X10^3/uL (0.83-4.51); Absolute Neutrophil Count 8.6 X10^3/uL (2.0-7.7); Basophil# 0.02 X10^3/uL; Basophil% 0.2 % (0-1); Eosinophil# 0.25 X10^3/uL; Hematocrit 29.1 % (40-54); Hemoglobin 9.2 g/dL (13.0-16.5); Lymphocyte # 2.48 X10^3/ul (0.83-4.51); Lymphocyte % 19.7 % (19-41); Mean Corp Hgb Conc 31.6 g/dL (32-36); Mean Corpuscular Hgb 28.8 pg (27.0-32.0); Mean Corpuscular Volume 90.9 fL (80-94); Mean Platelet Vol. 11.1 fl (6.2-12.0); Monocyte% 8.7 % (0-10); NRBC Flagged by Analyzer 0 % (0-5); Neutrophil # 8.59 X10^3/uL (2.7-7.7); Neutrophil % 68.2 % (47-70); Platelet Count 208 K/mm3 (150-450); RBC Distribution Width CV 17.2 % (11.6-14.6); RBC Distribution Width SD 57.2 fl (35.1-43.9); White Blood Count 12.6 K/mm3 (4.4-11.0)
[2023-01-13 05:30] LABS: Anion Gap 4 (5-15); BUN 73 mg/dL (7-18); BUN/Creat Ratio 21.9 RATIO (10-20); Calcium,Total 8.2 mg/dL (8.5-10.1); Chloride 110 mmol/L (98-107); Creatinine, Serum 3.34 mg/dL (0.70-1.30); EST Glomerular Filtration Rate 19 mL/min (>60); Est Glom Filt Rate - Afr Amer 23 mL/min (>60); Estimated Creatinine Clearance 16.62 ml/min; Glucose 200 mg/dL (74-106); Potassium 4.2 mmol/L (3.5-5.1); Sodium Level 141 mmol/L (136-145)
[2023-01-13 06:06] LABS: Bedside Glucose 176 mg/dL (74-106)
[2023-01-13] MEDS: HYDROcodone Bitartrate/Apap 5/325 Tablet PO ×2 (06:23→13:41)
[2023-01-13 07:08] VITALS: PULSE 85; RESP 20; O2SAT 96
[2023-01-13] MEDS: Budesonide Respules 0.5 MG/2 ML AMPUL.NEB. INHALATION (07:08)
[2023-01-13 07:52] VITALS: BP 116/51; PULSE 74; RESP 16; TEMP 36.2; O2SAT 95
[2023-01-13] MEDS: Sertraline 100 MG Tablet PO (07:55)
[2023-01-13] MEDS: Carvedilol 3.125 MG TABLET PO (07:55)
[2023-01-13] MEDS: Menthol/Lanolin/Calamine/Znox 113 GM Tube 1 APPLIC TOPICAL (07:55)
[2023-01-13] MEDS: Gabapentin 100 MG Capsule 200 MG PO ×2 (07:58→11:43)
[2023-01-13 08:07] VITALS: O2SAT 94
[2023-01-13 08:29] LABS: Bedside Glucose 106 mg/dL (74-106)
[2023-01-13 11:01] VITALS: O2SAT 94
[2023-01-13] MEDS: Insulin Glargine-YFGN 100 UNIT/ML Pen 30 UNIT SC (11:43)
[2023-01-13] MEDS: Insulin Lispro 100 UNIT/ML INSULN.PEN 10 UNIT SC (11:44)
--- NOTE | 2023-01-13 11:52 | DCINST_ITS ---
Discharge Instructions Diet Discharge Diet: Low fat / Low cholesterol Activity Discharge Activity: Return to Normal Activity Weight Bearing Status: Weight bearing as tolerated Dressing / Incision Call your doctor if you observe: Fever of 101 or Higher, Shortness of breath, Swelling in the ankles, Chest pain and Increased palpitations (irregular heartbeat) Follow Up Care Test Results: Test results from this visit will be discussed in further detail at your follow- up appointment, if applicable. Discharge Plan Admission Admit Date/Time: 12/30/22 18:18 Primary Reason for Your Visit: JOHN Attending Provider: Rubina Townsend Primary Care Provider: Mich Rosales Consulting Providers: Gera Aden; Derrell Vann; Alix Koenig; Richard Jc; Rubina Townsend; rBo Redd; Christofer Hernandez Instructions Patient Instructions: ED Hemodialysis Additional Instructions / Restrictions: to have dialysis on outpatient basis Tuesdays, and Saturdays as scheduled. Discharge Orders/Prescriptions Prescriptions: Continued gabapentin 400 MG capsule 400 mg PO TID sertraline 50 MG tablet 100 mg PO DAILY glipizide 5 MG tablet 5 mg PO .BEFORE MEALS clopidogrel 75 MG tablet 75 mg PO DAILY 0RF carvedilol 3.125 MG tablet 3.125 mg PO BID 0RF ceftriaxone in dextrose,iso-os 1 GM/50 ML piggyback 1 g IV Q24 0RF Asmanex HFA 200 mcg/actuation HFA aerosol inhaler 2 puff inhalation BID Stiolto Respimat 2.5-2.5 mcg/actuation mist 2 inh inhalation DAILY rosuvastatin [Crestor] 40 mg tablet 40 mg PO QHS albuterol 90 mcg/actuation aerosol 90 mcg inhalation .4X A DAY PRN (Reason: SOB) amlodipine 10 mg tablet 10 mg PO DAILY cyanocobalamin (vitamin B-12) 1,000 mcg capsule 1,000 mcg PO DAILY cholecalciferol (vitamin D3) 25 mcg (1,000 unit) capsule 75 mcg PO DAILY hydrocodone-acetaminophen 5-325 mg tablet 1 tab PO TID Patient Comments: Take 1 tablet by mouth every 8 hours as needed for pain. insulin glargine 100 unit/mL solution 50 unit subcut QHS Discontinued metformin [Glumetza] 500 mg tablet,ER mando.retention 24 hr 500 mg PO BID Referrals / Follow Up: Derrell Vann MD [Med Staff - Consulting] - Within 1 Week Mich Rosales MD [Primary Care Provider] - Within 2 Weeks Disposition Disposition (needs filled in before D/C Order can be placed): Home, Self Care
--- NOTE | 2023-01-13 11:53 | DS.PCM_ITS ---
Providers Date of Admission: 12/30/22 Primary Care Physician: Dr. Mich Rosales MD Consultations 12/31/22 07:21 Consult: Nephrology Routine Consulting Provider: Danita Jackson Reason for Consult: bun 113 creat 7.4 EMERGENT Consult: No Notified: No Date Notified: 12/31/22 Time Notified: 07:21 12/31/22 07:34 Consult: Nephrology Routine Consulting Provider: Derrell Vann Reason for Consult: JOHN EMERGENT Consult: Yes MD Notified: Yes Date Notified: 12/31/22 Time Notified: 07:35 Method of Notification: Verbal 12/31/22 16:07 Consult: General Surgery Routine Consulting Provider: Alix Koenig Reason for Consult: dialysis line placement EMERGENT Consult: No Notified: Yes Date Notified: 12/31/22 Time Notified: 16:07 Method of Notification: Verbal Reason For Visit: JOHN, DEBILITY Diagnosis Discharge Diagnosis (1) Acute hyperkalemia: Status: Acute Code(s): E87.5 - Hyperkalemia (2) Acute kidney injury: Status: Acute Code(s): N17.9 - Acute kidney failure, unspecified Plan #JOHN with hyperkalemia * Cr on admissionw as 7.4. Cr is 3.45 today * nephrology on board. Had CRRT over the weekend. * management as per nephrology * records requested from [place] in [place] where patient usually goes to get care to evaluate his renal function. * hyperkalemia has resolved. * now on hemodialysis.Had dialysis yesterday; per nephro no dialysis today. * renal USG was negative for any acute renal pathology * #Acute urinary retention: has Gonzalez catheter in place. On flomax #Community acquired pneumonia * thought to be due to Strep pneumoniae. * blood and sputum cultures pending. On rocephin and azithromycin. * titrate oxygen to maintain sats >90% * #Type 2 Diabetes mellitus with neuropathy * on lantus. ISS. Accuchecks ACHS * on gabapentin * #Hypertension: on carvedilol. #Hyperlipidemia: on statin #CAD: s/p CABG. On aspirin and statin as well as plavix. #Anemia: stable. Transfuse if Hb <7. Hb today is 9.6. #Depression; on sertraline. DVT prophylaxis: heparin Medications at Discharge Home Medications gabapentin 400 mg capsule 400 mg PO TID NERVE PAIN 08/20/18 glipizide 5 mg tablet 5 mg PO .BEFORE MEALS DM 08/20/18 sertraline 50 mg tablet 100 mg PO DAILY DEPRESSION 08/20/18 carvedilol 3.125 mg tablet 3.125 mg PO BID 08/21/18 clopidogrel 75 mg tablet 75 mg PO DAILY 08/21/18 albuterol 90 mcg/actuation aerosol inhaler 90 mcg inhalation .4X A DAY PRN SOB 12/30/22 amlodipine 10 mg tablet 10 mg PO DAILY 12/30/22 cholecalciferol (vitamin D3) 25 mcg (1,000 unit) capsule 75 mcg PO DAILY 12/30/22 cyanocobalamin (vitamin B-12) 1,000 mcg capsule 1,000 mcg PO DAILY 12/30/22 hydrocodone-acetaminophen 5-325mg 5mg-325mg 1 tab PO TID 12/30/22 insulin glargine 100 unit/mL subcutaneous solution 50 unit subcut QHS 12/30/22 mometasone 200 mcg/actuation HFA aerosol inhaler (Asmanex HFA) 2 puff inhalation BID 12/30/22 rosuvastatin 40 mg tablet (Crestor) 40 mg PO QHS 12/30/22 tiotropium 2.5 mcg-olodaterol 2.5 mcg/actuation mist for inhalation (Stiolto Respimat) 2 inh inhalation DAILY 12/30/22 tamsulosin 0.4 mg capsule 0.4 mg PO DAILY #30 caps 01/13/23 Hospital Course Procedures Dialysis and - (dialysis catheter insertion) Summary of Care Provided Minutes Spent on Discharge: 45 Hospital Course: Patient is a 77-year-old male with past medical history as outlined was admitted through the ED on 12/30/2022 with a complaint of generalized weakness. He had b een feeling fatigued for several weeks prior to admission and could not do much at home. He denied any fever or chills but admitted to generalized aches and pains. He complained of urinary frequency though this was chronic. On admission potassium was 6.1 and creatinine was 7.4. Urinalysis showed 1+ bacteria. Chest x-ray showed no acute cardiopulmonary pathology and CT of the brain showed no acute intracranial pathology. He was admitted and managed for JOHN on CKD stage IV. He was also managed for urinary retention. Nephrology was consulted and he was started on hydration with IV fluids. Was started on IV ceftriaxone for UTI as well and treated with Kayexalate for her hyperkalemia. Darrian lane had a temporary dialysis catheter inserted by general surgery. He was started on CRRT and subsequently converted to hemodialysis. Metformin was discontinued. Serologies were ordered and YARELI, p-ANCA and c-ANCA were negative. Renal ultrasound showed no evidence of hydronephrosis. Creatinine gradually trended downwards. Gonzalez catheter had to be inserted on account of BPH and urinary retention. Of note urine cultures were positive for, back to her which was sensitive to Bactrim. He completed a course of antibiotics. It was determined by nephrology that patient needed outpatient dialysis and this was set up for patient to have dialysis on Tuesdays, and Saturdays. His metformin was discontinued. Of note, JOHN was thought to be due to ATN he remained stable and was discharged home on 01/13/2023. He was discharged with a Gonzalez catheter in situ and was started on p.o. Flomax 0.4 mg daily. He is to follow-up with his primary care doctor and nephrology and was also referred to urology on outpatient basis. Physical Exam Const alert, oriented x3 and no apparent distress General Appearance: cooperative, comfortable and well kempt HEENT normocephalic, head/scalp atraumatic, hearing grossly normal bilaterally, nasal mucous membranes and turbinates normal and moist oral mucous membranes Mouth: oral and palatal mucosa normal Eyes PERRL, EOMs intact bilaterally and conjunctivae normal Neck full ROM, no lymphadenopathy, supple and no JVD Lymph Lymphatic: no lymphadenopathy noted and no lymphedema noted Chest inspection of chest normal Resp normal respiratory effort, normal air movement, no retractions, no use of accessory muscles and clear to auscultation bilaterally Cardio regular rate, regular rhythm, S1 normal heart sound, S2 normal heart sound, no murmurs and peripheral pulses 2+ throughout GI normal to inspection, nondistended, normoactive bowel sounds, soft to palpation, non-tender and non-distended Back/Spine normal ROM Extremity normal to inspection, full ROM, normal capillary refill, no clubbing, cyanosis or edema, no calf tenderness and no pedal edema Skin no rashes or lesions noted Skin Narrative: tunneled dialysis catheter in situ General Skin Exam: no breakdown and turgor normal Neuro oriented x3, CN's II-XII intact bilaterally, moves all extremities, no focal motor deficits, no sensory deficits noted and deep tendon reflexes 2+ bilate rally Sensorium / Orientation: awake and alert Motor Exam: strength 5/5 throughout Psych mental status grossly normal, thought process normal, cooperative and affect normal Appearance: appropriate Weight / BMI Weight Weight: 171 lb 1.259 oz Body Mass Index (BMI) 28.4 ABG / Lab / Microbiology Data 01/13/23 04:20 01/13/23 04:20 Laboratory: Laboratory Results - last 24 hr 01/12/23 11:26: POC Glucose 153 H 01/12/23 18:07: POC Glucose 342 H 01/12/23 22:25: POC Glucose 207 H 01/13/23 04:11: POC Glucose 176 H 01/13/23 04:20: WBC 12.6 H, RBC 3.20 L, Hgb 9.2 L, Hct 29.1 L, MCV 90.9, MCH 28.8, MCHC 31.6 L, RDW Std Deviation 57.2 H, RDW Coeff of Audi 17.2 H, Plt Count 208, MPV 11.1, Immature Gran % (Auto) 1.200 H, Neut % (Auto) 68.2, Lymph % (Auto) 19.7, [place] % (Auto) 8.7, Eos % (Auto) 2.0, Baso % (Auto) 0.2, Absolute Neuts (auto) 8.6 H, Absolute Lymphs (auto) 2.48, Nucleated RBC % 0, Sodium 141, Potassium 4.2, Chloride 110 H, Carbon Dioxide 27.0, Anion Gap 4 L, BUN 73 H, Creatinine 3.34 H, Estim Creat Clear Calc 16.62, Est GFR (MDRD) Af Amer 23 L, Est GFR (MDRD) Non-Af 19 L, BUN/Creatinine Ratio 21.9 H, Glucose 200 H, Calcium 8.2 L 01/13/23 07:49: POC Glucose 106 Microbiology: Microbiology 12/30/22 16:33 Blood Culture (Wb) - Anticubital Left Blood Culture - Final No growth in 5 days. 12/30/22 16:33 Blood Culture (Wb) - Left Hand Blood Culture - Final No growth in 5 days. 01/01/23 08:45 Sputum, Expectorated/Coughed Gram Stain - Final 01/01/23 08:45 Sputum, Expectorated/Coughed Respiratory Culture - Final Achromobacter xylosoxidans 12/30/22 17:25 Urine, Catheterized Urine Culture - Final Presumptive E. coli 12/31/22 03:40 Mucosa - Nose Respiratory Panel (PCR) - Final 12/31/22 04:30 Urine Catheter - Catheter Legionella Antigen - Final 12/31/22 04:30 Urine Catheter - Catheter Streptococcus pneumoniae Antigen (M - Final 12/31/22 03:00 Nasal Secretion SARS-CoV-2 Antigen (Rapid) - Final D/C Instructions Discharge Diet: Low fat / Low cholesterol Discharge Activity: Return to Normal Activity Weight Bearing Status: Weight bearing as tolerated Call your doctor if you observe: Fever of 101 or Higher, Shortness of breath, Swelling in the ankles, Chest pain and Increased palpitations (irregular heartbeat) Meaningful Use Info Meaningful Use Diagnoses (Choose all that apply): None applicable Discharge Plan Admission Admit Date/Time: 12/30/22 18:18 Primary Reason for Your Visit: JOHN Attending Provider: Rubina Townsend Primary Care Provider: Mich Rosales Consulting Providers: Gera Aden; Derrell Vann; Alix Koeing; Richard Jc; Rubina Townsend; Bro Redd; Christofer Hernandez Instructions Patient Instructions: ED Hemodialysis Additional Instructions / Restrictions: to have dialysis on outpatient basis Tuesdays, and Saturdays as scheduled. TO go with Gonzalez catheter in situ Discharge Orders/Prescriptions Prescriptions: New tamsulosin 0.4 mg capsule 0.4 mg PO DAILY Qty: 30 2RF Continued gabapentin 400 MG capsule 400 mg PO TID sertraline 50 MG tablet 100 mg PO DAILY glipizide 5 MG tablet 5 mg PO .BEFORE MEALS clopidogrel 75 MG tablet 75 mg PO DAILY 0RF carvedilol 3.125 MG tablet 3.125 mg PO BID 0RF Asmanex HFA 200 mcg/actuation HFA aerosol inhaler 2 puff inhalation BID Stiolto Respimat 2.5-2.5 mcg/actuation mist 2 inh inhalation DAILY rosuvastatin [Crestor] 40 mg tablet 40 mg PO QHS albuterol 90 mcg/actuation aerosol 90 mcg inhalation .4X A DAY PRN (Reason: SOB) amlodipine 10 mg tablet 10 mg PO DAILY cyanocobalamin (vitamin B-12) 1,000 mcg capsule 1,000 mcg PO DAILY cholecalciferol (vitamin D3) 25 mcg (1,000 unit) capsule 75 mcg PO DAILY hydrocodone-acetaminophen 5-325 mg tablet 1 tab PO TID Patient Comments: Take 1 tablet by mouth every 8 hours as needed for pain. insulin glargine 100 unit/mL solution 50 unit subcut QHS Discontinued ceftriaxone in dextrose,iso-os 1 GM/50 ML piggyback 1 g IV Q24 0RF metformin [Glumetza] 500 mg tablet,ER mando.retention 24 hr 500 mg PO BID Referrals / Follow Up: [facility] [Outside] - 01/14/23 5:30 am (First visit is 01/14/23 at 5:30am. Then Wednesday 01/17 at 9:00am) Derrell Vann MD [Med Staff - Consulting] - 01/19/23 2:30 pm (Appointment is in the [place] Office due to scheduling needs. Future appointments will be in [place].) David Caal MD [Med Staff - Active Staff] - Within 2 Weeks (follow with urology for evaluation for urinary retention) Mich Rosales MD [Primary Care Provider] - 01/24/23 10:00 am Disposition Disposition (needs filled in before D/C Order can be placed): Home, Self Care Charges/Coding Visit Charges Inpatient E&M: 25228 Disch Hosp >30min
[2023-01-13 12:08] LABS: Bedside Glucose 285 mg/dL (74-106)
[2023-01-13 13:42] VITALS: BP 110/54; PULSE 87; RESP 16; TEMP 36.5; O2SAT 97
--- NOTE | 2023-01-13 14:13 | PCM.PN.REN ---
Subjective Subjective No new complaints Objective Data Objective Data Vital Signs: Vital Signs Temp Pulse Resp BP Pulse Ox O2 Del Method O2 Flow Rate 97.7 F L 87 16 110/54 L 97 Room Air 2 01/13/23 13:42 01/13/23 13:42 01/13/23 13:42 01/13/23 13:42 01/13/23 13:42 01/13/23 13:48 01/13/23 07:52 FiO2 2 01/08/23 02:30 Oxygen Flow Rate (L/min) 2 Oxygen Delivery Method Room Air Weight: 77.6 kg Body Mass Index (BMI) 28.4 Intake & Output: Intake and Output for Last 24 Hours 01/11/23 01/12/23 01/13/23 23:59 23:59 23:59 Intake Total 736.75 / 736.75 1020 / 1220 320 / 320 Output Total 2625 / 2625 4850 / 5450 1400 / 1400 Balance -1888.25 / -1888.25 -3830 / -4230 -1080 / -1080 Lab / Micro Data 01/13/23 04:20 01/13/23 04:20 Labs: Laboratory Results - last 24 hr 01/12/23 11:26: POC Glucose 153 H 01/12/23 18:07: POC Glucose 342 H 01/12/23 22:25: POC Glucose 207 H 01/13/23 04:11: POC Glucose 176 H 01/13/23 04:20: WBC 12.6 H, RBC 3.20 L, Hgb 9.2 L, Hct 29.1 L, MCV 90.9, MCH 28.8, MCHC 31.6 L, RDW Std Deviation 57.2 H, RDW Coeff of Audi 17.2 H, Plt Count 208, MPV 11.1, Immature Gran % (Auto) 1.200 H, Neut % (Auto) 68.2, Lymph % (Auto) 19.7, [place] % (Auto) 8.7, Eos % (Auto) 2.0, Baso % (Auto) 0.2, Absolute Neuts (auto) 8.6 H, Absolute Lymphs (auto) 2.48, Nucleated RBC % 0, Sodium 141, Potassium 4.2, Chloride 110 H, Carbon Dioxide 27.0, Anion Gap 4 L, BUN 73 H, Creatinine 3.34 H, Estim Creat Clear Calc 16.62, Est GFR (MDRD) Af Amer 23 L, Est GFR (MDRD) Non-Af 19 L, BUN/Creatinine Ratio 21.9 H, Glucose 200 H, Calcium 8.2 L 01/13/23 07:49: POC Glucose 106 01/13/23 11:42: POC Glucose 285 H Micro: Microbiology 12/30/22 16:33 Blood Culture (Wb) - Anticubital Left Blood Culture - Final No growth in 5 days. 12/30/22 16:33 Blood Culture (Wb) - Left Hand Blood Culture - Final No growth in 5 days. 01/01/23 08:45 Sputum, Expectorated/Coughed Gram Stain - Final 01/01/23 08:45 Sputum, Expectorated/Coughed Respiratory Culture - Final Achromobacter xylosoxidans 12/30/22 17:25 Urine, Catheterized Urine Culture - Final Presumptive E. coli 12/31/22 03:40 Mucosa - Nose Respiratory Panel (PCR) - Final 12/31/22 04:30 Urine Catheter - Catheter Legionella Antigen - Final 12/31/22 04:30 Urine Catheter - Catheter Streptococcus pneumoniae Antigen (M - Final 12/31/22 03:00 Nasal Secretion SARS-CoV-2 Antigen (Rapid) - Final Physical Exam Narrative Alert and oriented x3, no apparent distress S1, S2, RRR Lung sounds clear anteriorly, diminished breath sounds posterior bases. On nasal O2 Abdomen soft, nontender Trace edema bilateral legs Bull with clear urine in bag Tunneled HD catheter dressing clean, dry and intact Const Constitutional Narrative: Patient answers simple questions, but has myoclonic jerks and somewhat lethargic General Appearance: well developed Orientation / Consciousness: oriented to person HEENT normocephalic Eyes PERRL Neck no lymphadenopathy Resp Auscultation: crackles right and wheezes GI Auscultation: normoactive bowel sounds Bladder / Kidney Exam: catheter in place Skin no rashes or lesions noted Neuro Sensorium / Orientation: lethargic Psych Memory / Cognition: cognition impaired Assessment & Plan Assessment/Plan (1) Acute hyperkalemia: (2) Acute kidney injury: PLAN: Impression/Plan: 77-year-old male with past medical history significant for diabetes mellitus type 2, CAD status post CABG x1, COPD not on home O2, hypertension [facility] with complaints of generalized weakness. Nephrology consulted for JOHN and hyperkalemia -JOHN superimposed on CKD stage IIIb (SCr 2.05 November 2022). Serum creatinine on admission 7.40 mg/dL. JOHN is likely due to ATN. -Because of JOHN, uremia and hyperkalemia (bicarb 16, K+ peaked 7.4) patient was started on CRRT 12/31 via femoral line. Femoral line was sluggish not functioning well for CRRT therefore femoral line removed and non-tunneled right IJ temporary HD catheter placed. Patient was taken off of CRRT 01/01. Patient last had intermittent hemodialysis on 01/03 with no fluid removal. - Serologies ordered: YARELI, p-ANCA, c-ANCA negative, complements normal, SPEP negative. UPC 1394mg/g. Renal US no hydro. CXR clear. -The patient does have urinary retention s/p Bull catheter placement. To be discharged home with bull -BUN and cr remained high. Restarted dialysis 01/10/2023. Tunneled HD catheter placed. -Discharge today, dialysis tomorrow
--- NOTE | 2023-01-13 14:47 | CASEMGMT ---
REGLA GUTIERREZ received call from Tana at [facility] and patient is able to have start of care for outpatient HD for tomorrow at 5:30 and then will start at 9:00am TTS on 01/17/23. REGLA GUTIERREZ updated patient regarding plan for discharge today with HD starting tomorrow. REGLA GUTIERREZ updated patient that [facility] will be starting 01/18 and patient agreeable. With patient's permission, REGLA GUTIERREZ updated son and regarding progress with therapy, [facility] setup, and HD start of care for tomorrow. REGLA GUTIERREZ updated by son that patient will need help with transport to HD, REGLA GUTIERREZ told son that [facility] would be able to facility transport but son would need to assist for first week or two, son voiced understanding. REGLA GUTIERREZ called [facility] and updated regard request for assistance with transport. Patient and family had no further questions or concerns at this time.
[2023-01-13 19:07] LABS: Anti-Glomerular Basement Memb < 0.2 units (0.0-0.9)
== END 2023-01-13 15:16 | disposition home or self-care (01) | DRG 682 ==
LOC: ED 18:05 → MS3 19:27 → ICU 12-31 09:47 → PCU 01-05 12:23
PROVIDERS: Family Medicine; Hospitalist; Internal Medicine; Internal Medicine Nephrology; Nurse Practitioner Adult Health; Surgery; Admitting Provider Hospitalist; Emergency Provider Emergency Medicine; PCP Family Medicine; Visit Provider Student in an Organized Health Care Education/Training Program
PROC: 02HV33Z Insertion of Infusion Device into Superior Vena Cava, Percutaneous Approach (ICD-10-PCS; principal; 2023-01-11 12:45)
DX: N17.0 Acute kidney failure with tubular necrosis (principal); J15.4 Pneumonia due to other streptococci; J44.1 Chronic obstructive pulmonary disease with (acute) exacerbation; N30.00 Acute cystitis without hematuria; D63.1 Anemia in chronic kidney disease; E11.22 Type 2 diabetes mellitus with diabetic chronic kidney disease; B96.20 Unspecified Escherichia coli [E. coli] as the cause of diseases classified elsewhere; N18.4 Chronic kidney disease, stage 4 (severe); I12.9 Hypertensive chronic kidney disease with stage 1 through stage 4 chronic kidney disease, or unspecified chronic kidney disease; F32.A Depression, unspecified; E87.5 Hyperkalemia; E78.5 Hyperlipidemia, unspecified; I25.10 Atherosclerotic heart disease of native coronary artery without angina pectoris; E66.3 Overweight; G89.29 Other chronic pain; Z79.02 Long term (current) use of antithrombotics/antiplatelets; Z87.891 Personal history of nicotine dependence; N13.9 Obstructive and reflux uropathy, unspecified; Z79.84 Long term (current) use of oral hypoglycemic drugs; Z79.899 Other long term (current) drug therapy; Z95.5 Presence of coronary angioplasty implant and graft; Z79.51 Long term (current) use of inhaled steroids; N40.1 Benign prostatic hyperplasia with lower urinary tract symptoms; Z95.1 Presence of aortocoronary bypass graft
CPT/HCPCS: 36415; 51702; 70450; 71045; 71046; 76770; 77001; 80048; 80069; 81001; 82330; 82570; 82728; 82784; 82947; 82962; 83520; 83540; 83550; 83605; 83735; 84100; 84156; 84165; 84300; 85025; 85027; 86038; 86140; 86160; 86225; 86235; 86256; 86334; 87040; 87070; 87077; 87086; 87088; 87186; 87205; 87340; 87426; 87449; 87633; 90937; 90947; 93005; 94640; 94668; 97110; 97116; 97162; 97166; 97530; 97535; 99285; J7030; J7040; J7050; J7120; A4216; C1750; C1752; G0257; J0612; J0696; J2405

== ENCOUNTER 2023-01-24 22:20 | Emergency (ER) | payer OTHER, SELFPAY ==
[2023-01-24 22:21] VITALS: BP 95/52; PULSE 93; RESP 15; TEMP 36.6; O2SAT 94; BMI 27.9
[2023-01-24 23:40] LABS: Mucous, Urine 0 SEEN /hpf (<or=2+); Squamous Epithelial Cells - UA 0 SEEN /hpf (0-5)
[2023-01-24 23:42] LABS: Color, Urine Yellow (Yellow); Glucose, Dipstick 50 mg/dl (Normal); Ketone-Dipstick Negative (Negative); Leukocyte Esterase-Dipstick 500 /ul (Negative); Nitrite-Dipstick Negative (Negative); Occult Blood-Urine 250 /ul (Negative); Protein-Dipstick 100 mg/dl (Negative); Urine Bilirubin Dipstick Negative (Negative); Urine Clarity Cloudy (Clear); Urine Urobilinogen Normal (Normal)
--- NOTE | 2023-01-24 23:47 | EDS_ITS ---
HPI History of Present Illness Chief Complaint: Complaint Informant: patient Narrative Narrative: Patient presents because he wants his catheter out. He did note a little bit of pink in there today. He states he has had a catheter for 3 weeks and it was placed because he could not urinate. He was placed on Flomax and has been taking it. He is also started on dialysis about 10 days ago. He had full term of dialysis earlier this evening with no difficulties. He states he feels perfectly fine. He does not feel pain in the bladder or abdomen. No nausea vomiting trouble eating's. His only complaint is that he noticed a little bit of pink color to the urine and he wants the catheter out. No fevers or chills. He is on Plavix and aspirin but no other blood thinners. He denies Eliquis, Xarelto or Coumadin. [facility] Medical History Acute kidney injury Anxiety Chest pain Chronic pain COPD (chronic obstructive pulmonary disease) Diabetes DVT (deep venous thrombosis) Former smoker Hearing loss, left Hearing loss, right Hypertension Kidney disease Kidney stones Myocardial infarct Sleep apnea Unable to walk Home Medications gabapentin 400 mg capsule 400 mg PO TID NERVE PAIN 08/20/18 [History Last Taken 08/20/18] glipizide 5 mg tablet 5 mg PO .BEFORE MEALS DM 08/20/18 [History Last Taken 08/20/18] sertraline 50 mg tablet 100 mg PO DAILY DEPRESSION 08/20/18 [History Last Taken 08/20/18] carvedilol 3.125 mg tablet 3.125 mg PO BID 08/21/18 [Rx Last Taken Unknown] clopidogrel 75 mg tablet 75 mg PO DAILY 08/21/18 [Rx Last Taken Unknown] albuterol 90 mcg/actuation aerosol inhaler 90 mcg inhalation .4X A DAY PRN SOB 12/30/22 [History Last Taken Unknown] amlodipine 10 mg tablet 10 mg PO DAILY 12/30/22 [History Last Taken Unknown] cholecalciferol (vitamin D3) 25 mcg (1,000 unit) capsule 75 mcg PO DAILY 12/30/22 [History Last Taken Unknown] cyanocobalamin (vitamin B-12) 1,000 mcg capsule 1,000 mcg PO DAILY 12/30/22 [History Last Taken Unknown] hydrocodone-acetaminophen 5-325mg 5mg-325mg 1 tab PO TID 12/30/22 [History Last Taken Unknown] insulin glargine 100 unit/mL subcutaneous solution 50 unit subcut QHS 12/30/22 [History Last Taken Unknown] mometasone 200 mcg/actuation HFA aerosol inhaler (Asmanex HFA) 2 puff inhalation BID 12/30/22 [History Last Taken Unknown] rosuvastatin 40 mg tablet (Crestor) 40 mg PO QHS 12/30/22 [History Last Taken Unknown] tiotropium 2.5 mcg-olodaterol 2.5 mcg/actuation mist for inhalation (Stiolto Respimat) 2 inh inhalation DAILY 12/30/22 [History Last Taken Unknown] tamsulosin 0.4 mg capsule 0.4 mg PO DAILY #30 caps 01/13/23 [Rx Last Taken Unknown] cephalexin 250 mg capsule 250 mg PO BID #14 caps 01/25/23 [Rx Last Taken Unknown] Allergy/AdvReac Type Severity Reaction Status Date / Time No Known Allergies Allergy Verified 01/24/23 22:25 Surgical History History of coronary artery stent placement Hx of CABG Social History Smoking Status: Former smoker ROS ROS ED Constitutional Constitutional ED: Denies chills, fever(s) or subjective ENT ENT ED: Denies rhinorrhea Cardiovascular Cardiovascular: Denies chest pain or palpitations Respiratory/Chest Respiratory/Chest: Denies cough or dyspnea Gastrointestinal Gastrointestinal: Denies abdominal pain, diarrhea, nausea or vomiting Genitourinary Genitourinary ED: Reports hematuria and other Details: As he has normal output of about 2 bags a day. That has not changed. ; Denies dysuria or urinary frequency Musculoskeletal Musculoskeletal: Denies back pain Integumentary Denies rash Neurologic Neurologic: Denies headache(s) Hematologic/Lymphatic Hematologic/Lymphatic: Reports easy bleeding and easy bruising Allergic/Immunologic Allergic/Immunologic ED: Denies urticaria EXAM Physical Exam Narrative Exam Narrative: Is awake alert no acute distress. HEENT shows no trauma. Mucous membranes seem reasonably moist. Neck is supple. There is no JVD that I note. Lungs are clear. No rhonchi or rales. No trouble with a deep breath. Saturations are normal at 95% on room air showing no hypoxia. Heart actually sounds regular. Rate is about 85?90. Abdomen is soft nondistended. He has some bruising from insulin shots. But he has no tenderness. He is not distended. His bowel sounds are normal. Overall benign exam. Gonzalez catheter does have cloudy urine. But he states its look that way for a while. We have a sample that has just the absolute minimal amount of pink. No clots are seen. The Gonzalez does seem to be draining well. He has no CVA or suprapubic tenderness. Const Vital Signs: 01/24/23 22:21 Temperature 97.9 F Temperature Source Temporal Pulse Rate 93 Respiratory Rate 15 Blood Pressure 95/52 L Blood Pressure Mean 66 Pulse Ox 94 Oxygen Delivery Method Room Air MDM MDM MDM Narrative Medical decision making narrative: When in the room, the patient stated he wants his catheter out. He states if we do not take it out he will pull it. I talked to him about why it was placed. I explained that although he has been on tamsulosin for 3 weeks, there is a high likelihood that when we take this catheter out, he will not be able to urinate. This puts him at risk of return, potential trauma getting the catheter back in, and possibly worsening kidney function that could even lead to . He states if he cannot pee he will come back but he wants the catheter out now. He states he will pull it if we do not take it out. I will follow with the patient's request. He has the capacity to make his own decisions and can repeat back the risks to me. Patient's urine is cloudy with greater than 100 red cells white cells and 4+ bacteria. He is not having fevers chills nausea vomiting. But I would treat this urine is potentially infected based on its appearance pending cultures. I will give him 1 dose of Keflex here. I will then give him 250 twice daily because of his renal failure. We discussed reasons to return. He has an appointment with his urologist in 5 days. Lab Data Labs: Laboratory Results - last 24 hr 01/24/23 23:30 Urine Color Yellow Urine Clarity Cloudy Urine pH 6.0 Ur Specific [place] 1.010 Urine Protein 100 H Urine Glucose (UA) 50 H Urine Ketones Negative Urine Occult Blood 250 H Urine Nitrite Negative Urine Bilirubin Negative Urine Urobilinogen Normal Ur Leukocyte Esterase 500 H Urine RBC > 100 SEEN Urine WBC >100 SEEN Ur Squamous Epith Cells 0 SEEN Urine Bacteria 4+ Urine Mucus 0 SEEN Discharge Plan Triage Chief Complaint: Complaint ED Provider: Brenton Gaines Dx/Rx/DC Orders Clinical Impression: Urinary catheter present, Acute UTI Instructions: ED Urinary Tract Infections in Men Prescriptions: New cephalexin 250 mg capsule 250 mg PO BID Qty: 14 0RF No Action gabapentin 400 MG capsule 400 mg PO TID sertraline 50 MG tablet 100 mg PO DAILY glipizide 5 MG tablet 5 mg PO .BEFORE MEALS clopidogrel 75 MG tablet 75 mg PO DAILY 0RF carvedilol 3.125 MG tablet 3.125 mg PO BID 0RF Asmanex HFA 200 mcg/actuation HFA aerosol inhaler 2 puff inhalation BID Stiolto Respimat 2.5-2.5 mcg/actuation mist 2 inh inhalation DAILY rosuvastatin [Crestor] 40 mg tablet 40 mg PO QHS albuterol 90 mcg/actuation aerosol 90 mcg inhalation .4X A DAY PRN (Reason: SOB) amlodipine 10 mg tablet 10 mg PO DAILY cyanocobalamin (vitamin B-12) 1,000 mcg capsule 1,000 mcg PO DAILY cholecalciferol (vitamin D3) 25 mcg (1,000 unit) capsule 75 mcg PO DAILY hydrocodone-acetaminophen 5-325 mg tablet 1 tab PO TID Patient Comments: Take 1 tablet by mouth every 8 hours as needed for pain. insulin glargine 100 unit/mL solution 50 unit subcut QHS tamsulosin 0.4 mg capsule 0.4 mg PO DAILY Qty: 30 2RF Primary Care Provider: Mich Rosales Referrals: Mich Rosales MD [Primary Care Provider] - Activity Restrictions/Additional Instructions: Follow-up with your urologist as scheduled on Monday. Disposition Disposition: Home, Self Care
[2023-01-25 00:07] LABS: Bacteria 4+ /hpf (None Seen); Red Blood Cells-Urine > 100 SEEN /hpf (0-5); White Blood Cells >100 SEEN /hpf (0-5)
[2023-01-25] MEDS: Cephalexin 250 MG Capsule 500 MG PO (01:54)
[2023-01-25 01:55] VITALS: BP 100/52; PULSE 88; RESP 18; O2SAT 95
== END 2023-01-25 01:57 | disposition home or self-care (01) ==
PROVIDERS: Emergency Provider Emergency Medicine; PCP Family Medicine; Visit Provider Emergency Medicine
DX: N39.0 Urinary tract infection, site not specified (principal); J44.9 Chronic obstructive pulmonary disease, unspecified; E11.9 Type 2 diabetes mellitus without complications; N19 Unspecified kidney failure; I10 Essential (primary) hypertension; Z87.891 Personal history of nicotine dependence; I25.2 Old myocardial infarction; Z87.442 Personal history of urinary calculi; Z86.718 Personal history of other venous thrombosis and embolism
CPT/HCPCS: 81001; 87077; 87086; 87088; 87186; 99283

== ENCOUNTER 2023-01-30 11:46 | Outpatient (CLI) | payer MEDICARE, OTHER, SELFPAY ==
[2023-01-30 12:21] LABS: Hematocrit 35.2 % (40-54); Hemoglobin 10.6 g/dL (13.0-16.5); Mean Corp Hgb Conc 30.1 g/dL (32-36); Mean Corpuscular Hgb 29.9 pg (27.0-32.0); Mean Corpuscular Volume 99.4 fL (80-94); Mean Platelet Vol. 9.9 fl (6.2-12.0); Platelet Count 181 K/mm3 (150-450); RBC Distribution Width CV 16.9 % (11.6-14.6); Red Blood Count 3.54 M/mm3 (4.6-6.2); White Blood Count 8.9 K/mm3 (4.4-11.0)
[2023-01-30 12:56] LABS: ALB/GLOB Ratio 0.7 RATIO (0.9-2.4); AST(SGOT) 20 U/L (15-37); Alanine Aminotransfer ALT/SGPT 18 U/L (16-61); Albumin, Serum 2.9 g/dL (3.2-5.0); Alkaline Phosphatase 93 U/L (45-117); Anion Gap 8 (5-15); BUN 30 mg/dL (7-18); BUN/Creat Ratio 9.9 RATIO (10-20); Calcium,Total 8.5 mg/dL (8.5-10.1); Chloride 102 mmol/L (98-107); Creatinine, Serum 3.04 mg/dL (0.70-1.30); EST Glomerular Filtration Rate 21 mL/min (>60); Est Glom Filt Rate - Afr Amer 26 mL/min (>60); Globulin 4.2 g/dL (2.2-4.2); Glucose 187 mg/dL (74-106); PSA,Total- Diagnostic 0.96 ng/mL (0.0-4.0); Potassium 3.4 mmol/L (3.5-5.1); Protein, Total 7.1 g/dL (6.4-8.2); Sodium Level 136 mmol/L (136-145)
== END 2023-01-30 23:59 | disposition home or self-care (01) ==
LOC: LAB 11:50
PROVIDERS: PCP Family Medicine; Referring Provider Urology; Visit Provider Urology
DX: N40.1 Benign prostatic hyperplasia with lower urinary tract symptoms (principal); Z12.5 Encounter for screening for malignant neoplasm of prostate; R33.8 Other retention of urine
CPT/HCPCS: 36415; 80053; 84153; 85027

== ENCOUNTER 2023-12-05 17:53 | Inpatient (IN) | payer OTHER, SELFPAY ==
[2023-12-05] VITALS (13 sets, daily range): BP systolic 101–128; BP diastolic 57–85; PULSE 80–95; RESP 16–20; TEMP 35.6–36.6; O2SAT 81–96; BMI 26.5
--- NOTE | 2023-12-05 17:59 | EKG12_ITS ---
Test Reason : SOB Blood Pressure : / mmHG Vent. Rate : 095 BPM Atrial Rate : 095 BPM P-R Int : 160 ms QRS Dur : 164 ms QT Int : 404 ms P-R-T Axes : 074 -59 081 degrees QTc Int : 507 ms Normal sinus rhythm Possible Left atrial enlargement Left axis deviation Left bundle branch block Abnormal ECG Confirmed by RUPSEH LAW, ANDREI ([id number]), editorial director DULCE SANDOVAL ([id number]) on 12/08/2023 10:20:02 AM Referred By: ASIA Confirmed By:SUZETTE GODDARD MD
[2023-12-05 18:14] LABS: Absolute Lymphocyte Count 1.22 X10^3/uL (0.83-4.51); Absolute Neutrophil Count 6.8 X10^3/uL (2.0-7.7); Basophil# 0.07 X10^3/uL; Basophil% 0.8 % (0-1); Eosinophil# 0.05 X10^3/uL; Eosinophils% 0.6 % (0-5); Hematocrit 45.9 % (40-54); Hemoglobin 14.2 g/dL (13.0-16.5); Lymphocyte # 1.22 X10^3/ul (0.83-4.51); Mean Corp Hgb Conc 30.9 g/dL (32-36); Mean Corpuscular Hgb 28.8 pg (27.0-32.0); Mean Corpuscular Volume 93.1 fL (80-94); Mean Platelet Vol. 10.7 fl (6.2-12.0); Monocyte# 0.54 X10^3/uL; Monocyte% 6.2 % (0-10); NRBC Flagged by Analyzer 0 % (0-5); Neutrophil # 6.79 X10^3/uL (2.7-7.7); Neutrophil % 78.1 % (47-70); Platelet Count 167 K/mm3 (150-450); RBC Distribution Width CV 15.4 % (11.6-14.6); RBC Distribution Width SD 52.1 fl (35.1-43.9); Red Blood Count 4.93 M/mm3 (4.6-6.2); White Blood Count 8.7 K/mm3 (4.4-11.0)
[2023-12-05 18:14] LABS: Base Excess 6 mmol/L (-2 to +2); Bicarbonate 31.6 mmol/L (22-26); Blood Gas Specimen Type ART; Mode Not entered; O2 Delivery Device Venti Mask; PO2 71 mmHG (75-100); SITE L Radial; SO2 92 % (95-99); Total Carbon Dioxide 34 mmol/L; pCO2 60.5 mmHg (35-45); pH 7.33 (7.35-7.45)
--- NOTE | 2023-12-05 18:18 | RAD_ITS ---
EXAM: XR CHEST, 1 VIEW CLINICAL INDICATION: Respiratory failure, bilateral rales TECHNIQUE: Frontal view of the chest. COMPARISON: 01/11/2023 FINDINGS: LUNGS AND PLEURAL SPACES: There is bilateral airspace disease which may represent edema. There are small bilateral pleural effusions. No pneumothorax. HEART: Unremarkable. Cardiac silhouette not enlarged. MEDIASTINUM: Central airways and mediastinal contour are unremarkable. BONES/JOINTS: Unremarkable. No acute fracture. SOFT TISSUES: See above. RAD/Chest 1 View (Portable) IMPRESSION: Bilateral effusions with patchy bilateral airspace disease which may represent edema. Electronically Signed: Kris Burdick MD at 18:55 EDT ,
[2023-12-05 18:32] LABS: BNP,B-Type NATRIURETIC PEPTIDE 293.4 pg/mL (0-100)
[2023-12-05] MEDS: Furosemide 20 MG/2 ML VIAL IV (18:41)
[2023-12-05 18:43] LABS: Lactic Acid 1.1 mmol/L (0.4-1.9)
[2023-12-05 18:45] LABS: ALB/GLOB Ratio 0.6 RATIO (0.9-2.4); AST(SGOT) 14 U/L (15-37); Alanine Aminotransfer ALT/SGPT 15 U/L (16-61); Albumin, Serum 2.8 g/dL (3.2-5.0); Alkaline Phosphatase 76 U/L (45-117); Anion Gap 5 (5-15); BUN 43 mg/dL (7-18); BUN/Creat Ratio 18.5 RATIO (10-20); Calcium,Total 8.9 mg/dL (8.5-10.1); Chloride 101 mmol/L (98-107); Creatinine, Serum 2.33 mg/dL (0.70-1.30); EST Glomerular Filtration Rate 29 mL/min (>60); Est Glom Filt Rate - Afr Amer 35 mL/min (>60); Estimated Creatinine Clearance 23.46 ml/min; Globulin 4.6 g/dL (2.2-4.2); Glucose 205 mg/dL (74-106); Protein, Total 7.4 g/dL (6.4-8.2); Sodium Level 137 mmol/L (136-145); Troponin-I HS (w/2H Reflex) 140 pg/mL (3.0-78.0)
--- NOTE | 2023-12-05 18:56 | EDS_ITS ---
HPI History of Present Illness Chief Complaint: Shortness of Breath Detail of Chief Complaint: Shortness of breath got worse today and called squad Informant: patient and EMS (Pulse ox 65% on room air.) Onset/Context/Timing Onset: Weeks (Shortness of breath started 2 to 3 weeks ago with orthopnea.) Timing: Continuous and Waxes and wanes Current Severity: Mild Maximum Severity: Severe Worsened by: Exertion and Lying flat Relieved by: Nothing Associated Symptoms cough and clear sputum; Negative for rhinorrhea, post nasal drip, ear pain, fever, sore throat, subjective, chills, sweats, white sputum, yellow sputum or green sputum Chest Pain: Positive for Intermittent and Pressure Narrative Narrative: Patient is a 78-year-old male. He has history of diabetes, hypertension, renal disease and non-ST elevation CO who presents from home by squad because of worsening shortness of breath over the past 2 to 3 weeks with increasing orthopnea. Denies PND. He has had intermittent chest pressure over the past week. He cannot tell me how long the discomfort lasted for. He did have associated increased shortness of breath. He denies leg pain or discoloration. He does report swelling which started 3 weeks ago. He denies fever, chills night sweats. Denies headache, visual, ocular auditory symptoms. He denies rhinorrhea, congestion, postnasal drainage sore throat. Denies ear pain. He denies abdominal pain, nausea, vomiting or diarrhea. He denies dysuria, frequency, urgency or hematuria. PE Risk Factors: Negative for Cancer, OCP + Smoking + > 35, Prior DVT or PE, Recent immobilization, Recent surgery or Recent travel Prior similar symptoms: No Recent Illness/Hospitalization: No [facility] Medical History Hearing loss, left Hearing loss, right Anxiety Diabetes Chronic pain Kidney stones Kidney disease Former smoker Sleep apnea COPD (chronic obstructive pulmonary disease) Chest pain Myocardial infarct Hypertension DVT (deep venous thrombosis) Unable to walk Acute kidney injury Home Medications ?Medication ?Instructions ?Recorded ?Last Taken ?Type gabapentin 400 mg capsule 400 mg PO TID NERVE PAIN 08/20/18 08/20/18 History glipizide 5 mg tablet 5 mg PO .BEFORE MEALS DM 08/20/18 08/20/18 History sertraline 50 mg tablet 100 mg PO DAILY DEPRESSION 08/20/18 08/20/18 History carvedilol 3.125 mg tablet 3.125 mg PO BID 08/21/18 Unknown Rx clopidogrel 75 mg tablet 75 mg PO DAILY 08/21/18 Unknown Rx albuterol 90 mcg/actuation aerosol 90 mcg inhalation .4X A DAY PRN SOB 12/30/22 Unknown History inhaler amlodipine 10 mg tablet 10 mg PO DAILY 12/30/22 Unknown History cholecalciferol (vitamin D3) 25 75 mcg PO DAILY 12/30/22 Unknown History mcg (1,000 unit) capsule cyanocobalamin (vitamin B-12) 1,000 mcg PO DAILY 12/30/22 Unknown History 1,000 mcg capsule hydrocodone-acetaminophen 5-325mg 1 tab PO TID 12/30/22 Unknown History 5mg-325mg insulin glargine 100 unit/mL 50 unit subcut QHS 12/30/22 Unknown History subcutaneous solution mometasone 200 mcg/actuation HFA 2 puff inhalation BID 12/30/22 Unknown History aerosol inhaler (Asmanex HFA) rosuvastatin 40 mg tablet (Crestor) 40 mg PO QHS 12/30/22 Unknown History tiotropium 2.5 mcg-olodaterol 2.5 2 inh inhalation DAILY 12/30/22 Unknown History mcg/actuation mist for inhalation (Stiolto Respimat) tamsulosin 0.4 mg capsule 0.4 mg PO DAILY #30 caps 01/13/23 Unknown Rx cephalexin 250 mg capsule 250 mg PO BID #14 caps 01/25/23 Unknown Rx Allergy/AdvReac Type Severity Reaction Status Date / Time No Known Allergies Allergy Verified 04/27/23 08:45 Surgical History Hx of CABG History of coronary artery stent placement Social History (Updated 12/05/23 @ 18:[address] Vern Wells MD) household members: spouse Smoking Status: Former smoker ROS ROS ED Constitutional Constitutional ED: Denies chills, fever(s) or sweats Eyes Eyes: Denies blurry vision or change in vision ENT ENT ED: Denies ear pain, rhinorrhea or sore throat Cardiovascular Cardiovascular: Reports chest pain and orthopnea; Denies palpitations, paroxysmal nocturnal dyspnea or racing heartbeat Respiratory/Chest Respiratory/Chest: Reports cough, dyspnea, dyspnea on exertion, orthopnea and other Details: Patient states she is sitting in a chair to sleep. ; Denies paroxysmal nocturnal dyspnea Gastrointestinal Gastrointestinal: Denies abdominal pain, melena, nausea or vomiting Genitourinary Genitourinary ED: Denies dysuria, hematuria or urinary frequency Musculoskeletal Musculoskeletal: Denies back pain or neck pain Integumentary Denies abscess or Abrasions Neurologic Neurologic: Denies headache(s), paresthesias or weakness Endocrine Endocrinology: Denies cold intolerance or heat intolerance Hematologic/Lymphatic Hematologic/Lymphatic: Denies easy bleeding or easy bruising EXAM Physical Exam Const Vital Signs: 12/05/23 17:54 12/05/23 17:58 12/05/23 17:59 Temperature 96.0 F L 96.0 F L Temperature Source Temporal Temporal Pulse Rate 95 95 Respiratory Rate 20 H 18 Respiratory Effort Respiratory Depth Respiratory Pattern Blood Pressure 112/63 110/85 H Blood Pressure Mean 79 93 Blood Pressure Source Pulse Ox 92 89 94 Oxygen Delivery Method Nasal Cannula Nasal Cannula Venturi Mask Oxygen Flow Rate (L/min) 6 6 12 Fraction of Inspired Oxygen (FIO2) 12 12/05/23 18:01 12/05/23 18:19 12/05/23 18:58 Temperature 97.8 F Temperature Source Temporal Pulse Rate 90 Respiratory Rate 18 Respiratory Effort Short of Breath Respiratory Depth Shallow Respiratory Pattern Irregular Blood Pressure 119/68 Blood Pressure Mean 85 Blood Pressure Source Pulse Ox 95 96 Oxygen Delivery Method Venturi Mask Venturi Mask Venturi Mask Oxygen Flow Rate (L/min) 12 12 12 Fraction of Inspired Oxygen (FIO2) 50 50 50 12/05/23 18:58 12/05/23 19:08 Temperature 97.8 F Temperature Source Temporal Pulse Rate 91 89 Respiratory Rate 18 Respiratory Effort Respiratory Depth Respiratory Pattern Blood Pressure 119/68 119/68 Blood Pressure Mean 85 85 Blood Pressure Source Monitor Pulse Ox 95 Oxygen Delivery Method Venturi Mask Oxygen Flow Rate (L/min) 12 Fraction of Inspired Oxygen (FIO2) 50 Positive well nourished and well developed Constitutional Narrative: Patient is tachypneic with use of accessory muscles. General Appearance ED: well developed; Negative for NAD HEENT Reports TM's clear and dry mucous membranes atraumatic; Negative for tenderness Tympanic Membrane ED: Yes TM's clear Mouth ED: Yes dry mucous membranes Mouth: dry mucous membranes Eyes PERRL and EOMs intact bilaterally General Eye ED: Negative for pale conjunctiva or scleral icterus Neck no lymphadenopathy, supple, no meningeal signs and no JVD Resp No normal respiratory effort and No clear to auscultation bilaterally Auscultation: rales bilateral and diffuse and wheezes expiratory wheezes and scattered wheezes Cardio regular rate, regular rhythm, S1 normal heart sound, S2 normal heart sound and no murmurs GI non-tender, non-distended and no masses Auscultation: normoactive bowel sounds Palpation: soft Back/Spine no CVA tenderness and normal to inspection Extremity General Extremety ED: Yes edema General Extremity: edema Neuro oriented x3, CN's II-XII intact bilaterally and no sensory deficits noted [place] Coma Scale: document GCS findings Spontaneous Obeys Commands Oriented 15 Sensorium / Orientation: alert Psych mental status grossly normal Thought Process: normal thought process Skin no wounds and skin turgor normal Lesions: no lesions Rashes: no rashes MDM MDM MDM Narrative Medical decision making narrative: Differential diagnosis includes CHF, cardiac ischemia, pneumonia, pneumothorax, exacerbation of COPD. Suspect patient had a cardiac event causing him to have heart failure. EKG, chest x-ray appropriate laboratory studies were obtained. History & Record Review Discussion w/independent historian: EMS personnel and Patient Lab Data Attestation: I reviewed the patient's lab results. Lab results narrative: White count is normal with a normal H&H. Indices are normal. Electrolyte panel is remarkable for BUN of 43 and a creatinine of 2.33. Estimated GFR 29. Glucose is elevated at 205 with a normal CO2 anion gap. Troponin is elevated 140. BNP is elevated at 293. Labs: Laboratory Results - last 24 hr 12/05/23 18:00 WBC 8.7 RBC 4.93 Hgb 14.2 Hct 45.9 MCV 93.1 MCH 28.8 MCHC 30.9 L RDW Std Deviation 52.1 H RDW Coeff of Audi 15.4 H Plt Count 167 MPV 10.7 Immature Gran % (Auto) 0.300 Neut % (Auto) 78.1 H Lymph % (Auto) 14.0 L [place] % (Auto) 6.2 Eos % (Auto) 0.6 Baso % (Auto) 0.8 Absolute Neuts (auto) 6.8 Absolute Lymphs (auto) 1.22 Nucleated RBC % 0 Sodium 137 Potassium 4.0 Chloride 101 Carbon Dioxide 31.0 Anion Gap 5 BUN 43 H Creatinine 2.33 H Estim Creat Clear Calc 23.46 Est GFR (MDRD) Af Amer 35 L Est GFR (MDRD) Non-Af 29 L BUN/Creatinine Ratio 18.5 Glucose 205 H Lactic Acid 1.1 Calcium 8.9 Total Bilirubin 0.30 AST 14 L ALT 15 L Alkaline Phosphatase 76 Troponin I High Sens 140 H* B-Natriuretic Peptide 293.4 H Total Protein 7.4 Albumin 2.8 L Globulin 4.6 H Albumin/Globulin Ratio 0.6 L ABG Data Attestation: I personally reviewed and interpreted this ABG as follows: Interpretation: Acidosis with acute on chronic CO2 retention and significant AA gradient. Patient on 50% Venturi mask. ABG results: ABG 12/05/23 12/05/23 18:09 18:54 Specimen Type ART ART Sample Site L Radial L Radial pH 7.33 L 7.32 L Bicarbonate Actual 31.6 H 30.0 H Total CO2 34 32 Base Excess 6 H 4 H O2 Saturation 92 L 89 L O2 % 50.0 50.0 ABG pCO2 60.5 H 58.4 H ABG pO2 71 L 63 L [place] Test Positive O2 Delivery Device Venti Mask Venti Mask Vent Mode Not entered Not entered Radiography Chest X-Ray - ED: 1 View and Read by ED Physician (Single portable chest x-ray shows bilateral pleural effusion with interstitial increased markings consistent with edema. Clinically patient's and heart failure.) Diagnostic Testing: Clinical Impression(s) from Imaging Studies Chest X-Ray 12/05/23 18:18 IMPRESSION: Bilateral effusions with patchy bilateral airspace disease which may represent edema. Electronically Signed: Kris Burdick MD at 18:55 EDT , EKG Initial EKG: Attestation: I personally reviewed and interpreted this EKG as follows: Interpretation: Sinus Rhythm (Rate is 95. Patient has a left bundle branch block with left axis. NV interval is 160 ms. QRS duration 164 ms. QT duration 3 and 52 ms.) Management Discussion w/another healthcare provider: Hospitalist (Dr. Redd will see patient and determine placement.) and Drying Machine Back Tender Treatment and Re-Evaluation :: 20 mg of Lasix was ordered after reviewing the x-ray. He also started on nitro drip for CHF. Patient appears more somnolent. Repeat ABG reveals no increased CO2 retention. Since patient's had a non-STEMI respiratory failure with significant CHF squilgeer was paged to discuss anticoagulation. Critical Care Time Critical Care Time: Yes Critical care time (excluding procedures): 30-74 minutes (49), Including time spent: (History, physical, documentation, review of prior records, independent rotation laboratory results, images and EKG), Discussing w/Patient &/or Family/Horticulture/Floriculture Teacher, Discussing w/Consultants and Arranging Admission or Transfer Discharge Plan Dx/Rx/DC Orders Clinical Impression: Acute respiratory failure with hypoxia and hypercarbia, Non-ST elevated myocardial infarction, Diabetes, HTN (hypertension), Acute cardiac pulmonary edema, Bilateral pleural effusion, Chronic kidney disease Disposition Disposition: Acute Care Hospital [facility]
[2023-12-05 18:59] LABS: Allen Test Positive; Base Excess 4 mmol/L (-2 to +2); Blood Gas Specimen Type ART; Mode Not entered; O2 Delivery Device Venti Mask; PO2 63 mmHG (75-100); SITE L Radial; SO2 89 % (95-99); Total Carbon Dioxide 32 mmol/L; pCO2 58.4 mmHg (35-45); pH 7.32 (7.35-7.45)
[2023-12-05] MEDS: Nitroglycerin Infusion 250 ML 3 MG CONT INF (19:08)
[2023-12-05] MEDS: Heparin Injection (Vial) 5,000 UNIT/ML VIAL 4000 UNIT IV (19:29)
[2023-12-05] MEDS: HEPARIN/D5w 25,000 UNITS 25,000 UNITS/250 ML IV.SOLN. 9 UNITS CONT INF (19:29)
[2023-12-05 19:37] LABS: International Normalized Ratio 1.1
--- NOTE | 2023-12-05 20:01 | HP.PCM.HOS_ITS ---
HPI - General General Date of Service: 12/05/23 Chief Complaint: Shortness of breath HPI Narrative JONAH ALEXANDRA, is a 78 M who presents with shortness of breath. Symptoms have been developing over the past few weeks, more short of breath. Reached the peak today where he was very short of breath and EMS was called. When EMS arrived his pulse ox was in 60s. Patient was placed on nasal cannula and subsequently on a Ventimask and he was breathing better. In the emergency room, it was noted that his troponins were elevated at 140. He was started on heparin drip, nitroglycerin drip and received 20 mg of IV furosemide. By time I had seen him he was feeling much better at that time. He states that he does have lower extremity edema but is been no change with that and states that he has been actually losing weight. States he is also been having chest pain during this time as well. [facility] Medical History Hearing loss, left Hearing loss, right Anxiety Diabetes Chronic pain Kidney stones Kidney disease Former smoker Sleep apnea COPD (chronic obstructive pulmonary disease) Chest pain Myocardial infarct Hypertension DVT (deep venous thrombosis) Unable to walk Acute kidney injury Home Medications ?Medication ?Instructions ?Recorded ?Last Taken ?Type gabapentin 400 mg capsule 400 mg PO TID NERVE PAIN 08/20/18 12/05/23 History glipizide 5 mg tablet 5 mg PO .BEFORE MEALS DM 08/20/18 12/05/23 History sertraline 50 mg tablet 100 mg PO DAILY DEPRESSION 08/20/18 12/05/23 History carvedilol 3.125 mg tablet 3.125 mg PO BID 08/21/18 12/05/23 Rx clopidogrel 75 mg tablet 75 mg PO DAILY 08/21/18 12/05/23 Rx albuterol 90 mcg/actuation aerosol 90 mcg inhalation .4X A DAY PRN SOB 12/30/22 Unknown History inhaler amlodipine 10 mg tablet 10 mg PO DAILY 12/30/22 Unknown History cholecalciferol (vitamin D3) 25 75 mcg PO DAILY 12/30/22 12/05/23 History mcg (1,000 unit) capsule cyanocobalamin (vitamin B-12) 1,000 mcg PO DAILY 12/30/22 12/05/23 History 1,000 mcg capsule hydrocodone-acetaminophen 5-325mg 1 tab PO TID 12/30/22 12/05/23 History 5mg-325mg insulin glargine 100 unit/mL 50 unit subcut QHS 12/30/22 12/04/23 History subcutaneous solution mometasone 200 mcg/actuation HFA 2 puff inhalation BID 12/30/22 12/05/23 History aerosol inhaler (Asmanex HFA) rosuvastatin 40 mg tablet (Crestor) 40 mg PO QHS 12/30/22 12/04/23 History tiotropium 2.5 mcg-olodaterol 2.5 2 inh inhalation DAILY 12/30/22 12/05/23 History mcg/actuation mist for inhalation (Stiolto Respimat) aspirin 81 mg tablet,delayed 81 mg PO DAILY 12/05/23 12/05/23 History release (Adult Aspirin Regimen) furosemide 40 mg tablet 40 mg PO DAILY 12/05/23 12/05/23 History Allergy/AdvReac Type Severity Reaction Status Date / Time No Known Allergies Allergy Verified 04/27/23 08:45 Surgical History Hx of CABG History of coronary artery stent placement Social History household members: spouse Smoking Status: Former smoker ROS ROS Narrative No fever or chills. No nausea or vomiting. No abdominal pain. All review of systems were negative except as mentioned above in the history of present illness and the other review of systems. Vital Signs Vital Signs Vital Signs: 12/05/23 17:54 12/05/23 17:58 12/05/23 17:59 Temperature 35.6 C L 35.6 C L Temperature Source Temporal Temporal Pulse Rate 95 95 Respiratory Rate 20 H 18 Respiratory Effort Respiratory Depth Respiratory Pattern Blood Pressure 112/63 110/85 H Blood Pressure Mean 79 93 Blood Pressure Source Pulse Ox 92 89 94 Oxygen Delivery Method Nasal Cannula Nasal Cannula Venturi Mask Oxygen Flow Rate (L/min) 6 6 12 Fraction of Inspired Oxygen (FIO2) 12 12/05/23 18:01 12/05/23 18:19 12/05/23 18:58 Temperature 36.6 C Temperature Source Temporal Pulse Rate 90 Respiratory Rate 18 Respiratory Effort Short of Breath Respiratory Depth Shallow Respiratory Pattern Irregular Blood Pressure 119/68 Blood Pressure Mean 85 Blood Pressure Source Pulse Ox 95 96 Oxygen Delivery Method Venturi Mask Venturi Mask Venturi Mask Oxygen Flow Rate (L/min) 12 12 12 Fraction of Inspired Oxygen (FIO2) 50 50 50 12/05/23 18:58 12/05/23 19:08 12/05/23 19:40 Temperature 36.6 C 36.3 C L Temperature Source Temporal Pulse Rate 91 89 84 Respiratory Rate 18 17 Respiratory Effort Respiratory Depth Respiratory Pattern Blood Pressure 119/68 119/68 119/57 L Blood Pressure Mean 85 85 77 Blood Pressure Source Monitor Pulse Ox 95 94 Oxygen Delivery Method Venturi Mask Oxygen Flow Rate (L/min) 12 Fraction of Inspired Oxygen (FIO2) 50 Weight Weight: 72.4 kg Body Mass Index (BMI) 26.5 Physical Exam Const alert and no apparent distress Constitutional Narrative: In bed. On Venturi mask. No respiratory distress. No conversational dyspnea. HEENT normocephalic and head/scalp atraumatic Eyes Eyes Narrative: No icterus. Glasses. Neck no lymphadenopathy and no JVD Resp normal respiratory effort and no use of accessory muscles Resp Narrative: Bilateral crackles Cardio regular rate, regular rhythm, S1 normal heart sound and S2 normal heart sound GI normal to inspection, nondistended, normoactive bowel sounds, soft to palpation, non-tender, non-distended and hepatosplenomegaly Extremity Extremity Narrative: Bilateral lower extremity edema Skin Skin Narrative: Dry skin lower extremities. Neuro moves all extremities and no focal motor deficits Sensorium / Orientation: awake and alert Psych affect normal Results Lab / Micro Data Attestation: I reviewed the patient's lab results. 12/05/23 18:00 12/05/23 18:00 Labs: Laboratory Results - last 24 hr 12/05/23 18:00: WBC 8.7, RBC 4.93, Hgb 14.2, Hct 45.9, MCV 93.1, MCH 28.8, MCHC 30.9 L, RDW Std Deviation 52.1 H, RDW Coeff of Audi 15.4 H, Plt Count 167, MPV 10.7, Immature Gran % (Auto) 0.300, Neut % (Auto) 78.1 H, Lymph % (Auto) 14.0 L, [place] % (Auto) 6.2, Eos % (Auto) 0.6, Baso % (Auto) 0.8, Absolute Neuts (auto) 6.8, Absolute Lymphs (auto) 1.22, Nucleated RBC % 0, PT 14.0, INR 1.1, APTT 32.0, Sodium 137, Potassium 4.0, Chloride 101, Carbon Dioxide 31.0, Anion Gap 5, BUN 43 H, Creatinine 2.33 H, Estim Creat Clear Calc 23.46, Est GFR (MDRD) Af Amer 35 L, Est GFR (MDRD) Non-Af 29 L, BUN/Creatinine Ratio 18.5, Glucose 205 H, Lactic Acid 1.1, Calcium 8.9, Total Bilirubin 0.30, AST 14 L, ALT 15 L, Alkaline Phosphatase 76, Troponin I High Sens 140 H*, B-Natriuretic Peptide 293.4 H, Total Protein 7.4, Albumin 2.8 L, Globulin 4.6 H, Albumin/Globulin Ratio 0.6 L ABG Data ABG results: ABG 12/05/23 12/05/23 18:09 18:54 Specimen Type ART ART Sample Site L Radial L Radial pH 7.33 L 7.32 L Bicarbonate Actual 31.6 H 30.0 H Total CO2 34 32 Base Excess 6 H 4 H O2 Saturation 92 L 89 L O2 % 50.0 50.0 ABG pCO2 60.5 H 58.4 H ABG pO2 71 L 63 L [place] Test Positive O2 Delivery Device Venti Mask Venti Mask Vent Mode Not entered Not entered EKG Initial EKG: Attestation: I personally reviewed and interpreted this EKG as follows: Prior EKG tracings: available for review EKG Rhythm Intrepretation: Sinus Rhythm (Left bundle branch block) Imaging Radiology Impression Chest X-Ray 12/05/23 18:18 IMPRESSION: Bilateral effusions with patchy bilateral airspace disease which may represent edema. Electronically Signed: Kris Burdick MD at 18:55 EDT , Assessment & Plan Assessment/Plan (1) Acute respiratory failure with hypoxia and hypercarbia: (2) Non-ST elevated myocardial infarction: (3) CHF exacerbation: PLAN: Plan Acute hypoxic and hypercapnic respiratory failure * Pulse ox was in the 60s EMS arrived. This is due to CHF exacerbation, pleural effusions. Currently doing well on Venturi mask and I feel the patient can likely be weaned down to nasal cannula. Patient had been on 6 L but was satting around 89%. But after the treatments that he is received in the emergency room he can probably be weaned down. * Bronchodilators as needed. Acute heart failure exacerbation * Unclear type at this time * Patient received 20 mg of IV furosemide in the emergency room. Will initiate an IV furosemide drip. * Given the patient's chronic kidney disease, not a candidate for ANTOINE inhibitors nor angiotensin receptor blockers at this time. * Continue without carvedilol. * Check echo Non-STEMI * Suspect type II given the severe hypoxia experiencing. * Continue to cycle troponins * Consult cardiology. Check echo. Chronic conditions * Diabetes mellitus type 2, insulin-dependent. Continue with insulin glargine, glipizide. Add sliding scale insulin. Check an A1c. * Depression: Continue sertraline * Hyperlipidemia: Continue rosuvastatin. * CAD: Continue with aspirin, statin and clopidogrel. * Chronic kidney disease a stage IV: Appears improved from previous. Patient had been on dialysis temporarily which was discontinued around April. Patient had his dialysis catheter subsequently removed thereafter. I will monitor his kidney function closely particularly while he is on the IV furosemide. VTE prophylaxis with enoxaparin CODE STATUS: Addressed with the patient. Patient wishes to be full code. Charges/Coding Visit Charges Inpatient E&M: 66721 Init Hosp L3
[2023-12-05 20:08] LABS: Reflex Troponin-HS? (from REC) Y
[2023-12-05 20:48] LABS: Troponin-I HS 163 pg/mL (3.0-78.0)
--- NOTE | 2023-12-05 22:06 | ECHOCS_ITS ---
Reason For Study: CONGESTIVE HEART FAILURE Procedure This was a 2D Doppler, Color Flow transthoracic echocardiogram. The study was technically difficult. Contrast injection was performed. Exam performed portable in patient room. Left Ventricle Mildly dilated left ventricle. The estimated ejection fraction is 20-25 %. There is evidence of diastolic dysfunction. There is severe global hypokinesis of the left ventricle. Right Ventricle Normal RV size. Normal systolic function. Atria There is mild biatrial dilatation. No doppler evidence for ASD. Mitral Valve There is no mitral valve stenosis. No mitral valve insufficiency. Tricuspid Valve There is no tricuspid stenosis. Unable to estimate RV systolic pressure due to inadequate jet, pulmonary artery pressure probably normal. Aortic Valve Trisinus/trileaflet aortic valve. There is no aortic stenosis. No aortic valve insufficiency. Pulmonic Valve There is no pulmonic valvular stenosis. No pulmonic valve insufficiency. Great Vessels Normal aortic root. Pericardium/Pleural No pericardial effusion. Medication Diluted definity 3ml given slow IV push to enhance endocardial definition. MMode/2D Measurements & Calculations LVIDd: 5.1 cm IVSd: 1.1 cm LVOT diam: 1.9 cm LVIDs: 4.2 cm LVPWd: 1.1 cm RVDd: 4.1 cm FS: 16.7 % LVOT area: 2.7 cm2 Ao root diam: 2.9 cm LAV(MOD-bp): 41.5 ml LVAd ap4: 34.5 cm2 LAV(MOD-bp) Indexed: 23.1 ml/m2 LVLd ap4: 7.9 cm LAV(MOD-sp2): 37.1 ml EDV(MOD-sp4): 123.9 ml LAV(MOD-sp4): 43.0 ml EDV(sp4-el): 127.5 ml LVAs ap4: 29.4 cm2 LVLs ap4: 7.5 cm ESV(MOD-sp4): 95.3 ml ESV(sp4-el): 97.4 ml EF(MOD-sp4): 23.1 % EF(sp4-el): 23.6 % LVAd ap2: 39.6 cm2 SV(MOD-sp4): 28.6 ml SV(MOD-sp2): 50.0 ml LVLd ap2: 8.4 cm EDV(MOD-sp2): 155.8 ml EDV(sp2-el): 158.8 ml LVAs ap2: 31.1 cm2 LVLs ap2: 7.4 cm ESV(MOD-sp2): 105.8 ml ESV(sp2-el): 110.6 ml EF(MOD-sp2): 32.1 % SV(sp4-el): 30.2 ml LA dimension(2D): 4.0 cm LA A4 area: 16.5 cm2 RA A4 area: 11.5 cm2 TAPSE: 1.6 cm Time Measurements MV dec time: 0.11 sec Doppler Measurements & Calculations MV E max vini: 80.8 cm/sec Lat Peak E' Vini: 6.7 cm/sec Med Peak E' Vini: 4.3 cm/sec MV A max vini: 109.3 cm/sec E/E' lat: 12.1 E/E' med: 18.7 MV E/A: 0.74 Ao V2 max: 141.4 cm/sec LV V1 max: 96.9 cm/sec MV dec slope: 759.1 cm/sec2 Ao max P.0 mmHg LV V1 max P.8 mmHg Ao V2 mean: 114.5 cm/sec LV V1 mean P.5 mmHg Ao mean P.4 mmHg LV V1 mean: 77.6 cm/sec Ao V2 VTI: 29.7 cm LV V1 VTI: 17.9 cm AV (velocity ratio): 0.60 GEOVANI(I,D): 1.6 cm2 GEOVANI(V,D): 1.8 cm2 SV(LVOT): 48.4 ml PA V2 max: 79.4 cm/sec PA max PG (full): 1.7 mmHg ECHO/Echo Complete W/ Contrast Interpretation Summary Mildly dilated left ventricle. The estimated ejection fraction is 20-25 %. There is severe global hypokinesis of the left ventricle. There is evidence of diastolic dysfunction. Ordering Physician: Bro Redd Referring Physician: MD Mich Rosales Performed By: Fausto, Olga, RDCS
[2023-12-05] MEDS: Insulin Glargine-YFGN 100 UNIT/ML Pen 50 UNIT SC (22:43)
[2023-12-05] MEDS: Furosemide 500 MG in Empty Viaflex 50 mL 1 EACH CONT INF (22:45)
[2023-12-05] MEDS: 0.9% Saline Lock 10 ML Syringe IV (22:55)
[2023-12-05 22:56] LABS: Bedside Glucose 133 mg/dL (74-106)
[2023-12-05] MEDS: Ipratropium/Albuterol Sulfate 3 ML AMPUL.NEB INHALATION (23:55)
[2023-12-06] VITALS (16 sets, daily range): BP systolic 104–126; BP diastolic 45–63; PULSE 77–93; RESP 14–22; TEMP 36.3–36.9; O2SAT 90–99; BMI 26.1
[2023-12-06 00:49] LABS: Troponin-I HS 192 pg/mL (3.0-78.0)
[2023-12-06 01:56] LABS: Partial Thromboplast Time 77.4 Seconds (24.1-36.2)
[2023-12-06] MEDS: HYDROcodone Bitartrate/Apap 5/325 Tablet PO (05:17)
[2023-12-06] MEDS: CLARIFY ORDER NOTE (05:17)
[2023-12-06] MEDS: Menthol/Lanolin/Calamine/Znox 113 GM Tube 1 APPLIC TOPICAL ×3 (05:18→21:20)
[2023-12-06] MEDS: Gabapentin 400 MG Capsule PO ×3 (05:18→21:21)
[2023-12-06 06:15] LABS: Hematocrit 42.2 % (40-54); Hemoglobin 13.3 g/dL (13.0-16.5); Mean Corp Hgb Conc 31.5 g/dL (32-36); Mean Corpuscular Hgb 29.1 pg (27.0-32.0); Mean Corpuscular Volume 92.3 fL (80-94); Mean Platelet Vol. 10.8 fl (6.2-12.0); Platelet Count 155 K/mm3 (150-450); RBC Distribution Width CV 15.2 % (11.6-14.6); RBC Distribution Width SD 51.4 fl (35.1-43.9); Red Blood Count 4.57 M/mm3 (4.6-6.2); White Blood Count 10.7 K/mm3 (4.4-11.0)
[2023-12-06] MEDS: Ipratropium/Albuterol Sulfate 3 ML AMPUL.NEB INHALATION ×3 (06:38→19:32)
[2023-12-06] MEDS: Budesonide Respules 0.5 MG/2 ML AMPUL.NEB. INHALATION ×2 (06:38→19:32)
[2023-12-06 07:11] LABS: Bedside Glucose 67 mg/dL (74-106)
[2023-12-06 07:11] LABS: Bedside Glucose 55 mg/dL (74-106)
[2023-12-06 07:11] LABS: Bedside Glucose 100 mg/dL (74-106)
[2023-12-06 07:55] LABS: Anion Gap 9 (5-15); BUN 42 mg/dL (7-18); BUN/Creat Ratio 21.1 RATIO (10-20); Calcium,Total 8.9 mg/dL (8.5-10.1); Chloride 102 mmol/L (98-107); Cholesterol 113 mg/dL (200); Creatinine, Serum 1.99 mg/dL (0.70-1.30); EST Glomerular Filtration Rate 35 mL/min (>60); Est Glom Filt Rate - Afr Amer 42 mL/min (>60); Estimated Creatinine Clearance 27.47 ml/min; Glucose 88 mg/dL (74-106); High Density Lipoprotein 60 mg/dL; Potassium 3.5 mmol/L (3.5-5.1); Sodium Level 141 mmol/L (136-145); Triglycerides 81 mg/dL; Very Low Density Lipoprotein 16 mg/dL (5-40)
[2023-12-06] MEDS: Aspirin E.C. 81 MG Tablet PO (08:56)
[2023-12-06] MEDS: Sertraline 100 MG Tablet PO (08:56)
[2023-12-06] MEDS: amLODIPine 10 MG Tablet PO (08:56)
[2023-12-06] MEDS: Carvedilol 3.125 MG TABLET PO ×2 (08:56→21:21)
[2023-12-06] MEDS: Clopidogrel Bisulfate 75 MG Tablet PO (08:56)
--- NOTE | 2023-12-06 09:54 | CASEMGMT ---
REGLA GUTIERREZ Assessment Face to Face with patient for initial transition planning/care coordination assessment. REGLA GUTIERREZ introduced self and role at [facility], pt voices understanding. Pt is A&Ox4 and is resting comfortably in bed and is calm. Care providers, pharmacy, and demographics verified. Admitting dx: CHF Exacerbation PCP: Mich Rosales Specialists: Pt denies seeing any specialists Preferred Pharmacy: [facility] [place]: [place], [facility] A/B Prescription Benefit: Yes LNOK: Azul Mackey (W), Sara Calderon (Josselin) Living Arrangements: Pt lives with his in a Bi-Level home with one step to enter ADLs/IADLs: Pt states that he is ind at baseline Transportation: Pt states that he and his drive and denies concerns DME: Pt utilizes a cane.Pt states that he also has a FWW. Pt is currently on 10L of additional O2. A verbal list of local in network DME companies provided to the pt at this time. Pt prefers [employer] for potential DME needs. HHC/SNF: Pt states that his has had [facility] HHC before but he personally has not. Pt denies SNF Hx HD: Pt states that he used to attend HD at [facility] T/Th/S but states that he does not need to anymore. Pt states that if he is advised to f/u with HD after DC that he prefers to return to [facility]. CM to follow. Pt?s goal: Return to PLOF Plan: TBD. PT/OT Pending. If pt DC's home, follow for oxygen, HD, and HHC/OP Tx needs. CM and SW to follow pt progression in the hospital to determine the safest DC plan moving forward. Report given to LINOLEUM PRINTERIsael Tavarez RN, CM
[2023-12-06 10:11] LABS: Hemoglobin A1c 7.3 % (3.8-5.6)
[2023-12-06 10:41] LABS: Partial Thromboplast Time 46.9 Seconds (24.1-36.2)
[2023-12-06] MEDS: Dextrose 10%-Water 250 ML 999 ML IV ×2 (11:27→16:47)
[2023-12-06] MEDS: 0.9% Saline Lock 10 ML Syringe IV ×4 (11:28→16:58)
[2023-12-06 11:40] LABS: Bedside Glucose 59 mg/dL (74-106)
[2023-12-06 12:26] LABS: Bedside Glucose 97 mg/dL (74-106)
--- NOTE | 2023-12-06 12:46 | PCM.PROGNOTE ---
Subjective Subjective Patient seen and examined. He is being managed for acute hypoxic respiratory failure due to heart failure with unknown EF. He states he feels his breathing is improving. He denies any cough, chest pain, palpitations, dizziness, nausea or vomiting or any other symptoms. Review of systems otherwise negative. He is now off BiPAP and on 10 L of oxygen. Troponins also trended up slightly to a peak of 192. Objective Data Objective Data Vital Signs: Vital Signs Temp Pulse Resp BP Pulse Ox O2 Del Method O2 Flow Rate 97.8 F 81 22 H 122/45 H 92 Nasal Cannula 10 12/06/23 08:55 12/06/23 12:28 12/06/23 12:28 12/06/23 08:55 12/06/23 08:55 12/06/23 08:55 12/06/23 08:55 FiO2 40 12/06/23 04:00 Oxygen Flow Rate (L/min) 10 Oxygen Delivery Method Nasal Cannula Weight: 156 lb 11.979 oz Body Mass Index (BMI) 26.1 Intake & Output: Intake and Output for Last 24 Hours 12/04/23 12/05/23 12/06/23 23:59 23:59 23:59 Intake Total 8.9 / 8.9 265.17 / 265.17 Output Total 1950 / 1950 Balance 8.9 / -391.1 -1684.83 / -1684.83 Lab / Micro Data 12/06/23 06:00 12/06/23 06:00 Labs: Laboratory Results - last 24 hr 12/05/23 18:00: WBC 8.7, RBC 4.93, Hgb 14.2, Hct 45.9, MCV 93.1, MCH 28.8, MCHC 30.9 L, RDW Std Deviation 52.1 H, RDW Coeff of Audi 15.4 H, Plt Count 167, MPV 10.7, Immature Gran % (Auto) 0.300, Neut % (Auto) 78.1 H, Lymph % (Auto) 14.0 L, Sibley % (Auto) 6.2, Eos % (Auto) 0.6, Baso % (Auto) 0.8, Absolute Neuts (auto) 6.8, Absolute Lymphs (auto) 1.22, Nucleated RBC % 0, PT 14.0, INR 1.1, APTT 32.0, Sodium 137, Potassium 4.0, Chloride 101, Carbon Dioxide 31.0, Anion Gap 5, BUN 43 H, Creatinine 2.33 H, Estim Creat Clear Calc 23.46, Est GFR (MDRD) Af Amer 35 L, Est GFR (MDRD) Non-Af 29 L, BUN/Creatinine Ratio 18.5, Glucose 205 H, Lactic Acid 1.1, Calcium 8.9, Total Bilirubin 0.30, AST 14 L, ALT 15 L, Alkaline Phosphatase 76, Troponin I High Sens 140 H*, B-Natriuretic Peptide 293.4 H, Total Protein 7.4, Albumin 2.8 L, Globulin 4.6 H, Albumin/Globulin Ratio 0.6 L 12/05/23 20:14: Troponin I High Sens 163 H* 12/05/23 22:33: POC Glucose 133 H 12/06/23 00:00: Troponin I High Sens 192 H* 12/06/23 01:30: APTT 77.4 H 12/06/23 05:25: POC Glucose 55 L 12/06/23 05:46: POC Glucose 67 L 12/06/23 06:00: WBC 10.7, RBC 4.57 L, Hgb 13.3, Hct 42.2, MCV 92.3, MCH 29.1, MCHC 31.5 L, RDW Std Deviation 51.4 H, RDW Coeff of Audi 15.2 H, Plt Count 155, MPV 10.8, Sodium 141, Potassium 3.5, Chloride 102, Carbon Dioxide 30.0, Anion Gap 9, BUN 42 H, Creatinine 1.99 H, Estim Creat Clear Calc 27.47, Est GFR (MDRD) Af Amer 42 L, Est GFR (MDRD) Non-Af 35 L, BUN/Creatinine Ratio 21.1 H, Glucose 88, Hemoglobin A1c 7.3 H, Calcium 8.9, Triglycerides 81, Cholesterol 113, LDL Cholesterol 37, VLDL Cholesterol 16, HDL Cholesterol 60 12/06/23 06:11: POC Glucose 100 12/06/23 10:21: APTT 46.9 H 12/06/23 11:20: POC Glucose 59 L 12/06/23 12:06: POC Glucose 97 ABG Data ABG results: ABG 12/05/23 12/05/23 18:09 18:54 Specimen Type ART ART Sample Site L Radial L Radial pH 7.33 L 7.32 L Bicarbonate Actual 31.6 H 30.0 H Total CO2 34 32 Base Excess 6 H 4 H O2 Saturation 92 L 89 L O2 % 50.0 50.0 ABG pCO2 60.5 H 58.4 H ABG pO2 71 L 63 L Meliton Test Positive O2 Delivery Device Venti Mask Venti Mask Vent Mode Not entered Not entered Radiography Diagnostic Testing: Radiology Impression Chest X-Ray 12/05/23 18:18 IMPRESSION: Bilateral effusions with patchy bilateral airspace disease which may represent edema. Electronically Signed: Kris Burdick MD at 18:55 EDT , Echocardiogram 12/05/23 22:06 Interpretation Summary Mildly dilated left ventricle. The estimated ejection fraction is 20-25 %. There is severe global hypokinesis of the left ventricle. There is evidence of diastolic dysfunction. Ordering Physician: Bro Redd Referring Physician: MD Connie Mich Performed By: Olga Lambert, [facility] Physical Exam Const alert, oriented x3 and no apparent distress General Appearance: cooperative HEENT normocephalic, head/scalp atraumatic, moist oral mucous membranes and oropharynx normal Eyes PERRL and EOMs intact bilaterally Neck supple and no JVD Lymph Lymphatic: no lymphadenopathy noted and no lymphedema noted Resp Resp Narrative: Moderately diminished breath sounds bilaterally. Mild wheezes and few crackles bilaterally. On 10 L of oxygen via nasal cannula. Cardio regular rate, regular rhythm, S1 normal heart sound, S2 normal heart sound and no murmurs GI normal to inspection, nondistended, normoactive bowel sounds, soft to palpation, non-tender and non-distended Extremity normal capillary refill, no clubbing, cyanosis or edema and no calf tenderness General Extremity: no tenderness to palpation of joints or extremities Skin General Skin Exam: no breakdown Neuro CN's II-XII intact bilaterally and no focal motor deficits Coordination / Balance: [id number] test normal Motor Exam: strength 5/5 throughout and general weakness Psych thought process normal and cooperative Appearance: appropriate Assessment & Plan Assessment/Plan (1) CHF exacerbation: (2) Non-ST elevated myocardial infarction: PLAN: Plan #Acute hypoxic and hypercapnic respiratory failure due to acute heart failure with reduced EF Now off BiPAP and down to 10 L of oxygen. Chest x-ray showed bilateral pleural effusions and evidence of fluid overload. 2D echo ordered showed EF of 20 to 25% and severe global hypokinesis of left ventricle ventricle with evidence of diastolic dysfunction and mildly dilated left ventricle. On IV Lasix drip. Breathing treatments and bronchodilators. Titrate oxygen to maintain saturation above 90%. Cardiology consulted on account of non-STEMI also. #Non-STEMI: Initial troponin was elevated and trended up somewhat with peak of 192. On heparin drip and aspirin as well as high intensity statin. This may also be due to troponin leak from the respiratory failure as patient denies any chest pain. Cardiology consulted. Await recs. 2D echo done and results pending. #Type 2 diabetes mellitus: On Lantus and glipizide. Insulin sliding scale. Accu-Cheks ACHS. #Depression: On sertraline #Hyperlipidemia: On statin CAD: On aspirin, statin and Plavix #CKD stage IV: Patient used to be on dialysis but this was Discontinued in April 2024 per nephrology. Monitor kidney function. Creatinine is 1.99 today down from 2.33 on admission. His baseline seems to be around 3-3.4 CODE STATUS: Full code Charges/Coding Visit Charges Inpatient E&M: 73391 Subs Hosp L3
--- NOTE | 2023-12-06 14:07 | CON.PCM.CA_ITS ---
Assessment & Plan Assessment/Plan (1) CHF exacerbation: QUALIFIERS: Heart failure type: systolic Qualified Code(s): I 50.23 - Acute on chronic systolic (congestive) heart failure PLAN: Agree with continuing Lasix drip for another day. Continue Coreg. No ANTOINE inhibitor because of CKD. In the past patient had presented with severe hyperkalemia and acute on chronic renal failure requiring dialysis for a brief time. (2) Non-ST elevated myocardial infarction: PLAN: Likely type II ID secondary to hypoxia and CHF. As an outpatient stress test could be considered. Okay to discontinue heparin. (3) Chronic kidney disease: QUALIFIERS: Chronic kidney disease stage: unspecified stage Q ualified Code(s): N18.9 - Chronic kidney disease, unspecified HPI Consult Data Date of Consult: 12/06/23 HPI Narrative Reason for Consultation: Shortness of breath, CHF HPI Narrative: JONAH ALEXANDRA, is a 78 M who presents with shortness of breath. He was found to be volume overloaded and was started on a Lasix drip. His shortness of breath has improved significantly. Patient has history of coronary artery disease status post CABG, possible left main stent after that, CKD with acute on chronic renal failure last admission requiring dialysis for a brief period, history of CHF, hypertension. He has not been following with a yard worker for some time. He was last seen by our cardiology service in 2019. At that time he had a yard worker in [place]. 2D echo done today revealed an EF of 20 to 25%. In 2019 coronary angiography revealed patent COLIN to LAD. He had severe left main stenosis for which he was sent to [facility] for PCI. Patient states he had PCI at that time. [facility] Medical History Hearing loss, left Hearing loss, right Anxiety Diabetes Chronic pain Kidney stones Kidney disease Former smoker Sleep apnea COPD (chronic obstructive pulmonary disease) Chest pain Myocardial infarct Hypertension DVT (deep venous thrombosis) Unable to walk Acute kidney injury Home Medications ?Medication ?Instructions ?Recorded ?Last Taken ?Type gabapentin 400 mg capsule 400 mg PO TID NERVE PAIN 08/20/18 12/05/23 History glipizide 5 mg tablet 5 mg PO .BEFORE MEALS DM 08/20/18 12/05/23 History sertraline 50 mg tablet 100 mg PO DAILY DEPRESSION 08/20/18 12/05/23 History carvedilol 3.125 mg tablet 3.125 mg PO BID 08/21/18 12/05/23 Rx clopidogrel 75 mg tablet 75 mg PO DAILY 08/21/18 12/05/23 Rx albuterol 90 mcg/actuation aerosol 90 mcg inhalation .4X A DAY PRN SOB 12/30/22 Unknown History inhaler amlodipine 10 mg tablet 10 mg PO DAILY 12/30/22 Unknown History cholecalciferol (vitamin D3) 25 75 mcg PO DAILY 12/30/22 12/05/23 History mcg (1,000 unit) capsule cyanocobalamin (vitamin B-12) 1,000 mcg PO DAILY 12/30/22 12/05/23 History 1,000 mcg capsule hydrocodone-acetaminophen 5-325mg 1 tab PO TID 12/30/22 12/05/23 History 5mg-325mg insulin glargine 100 unit/mL 50 unit subcut QHS 12/30/22 12/04/23 History subcutaneous solution mometasone 200 mcg/actuation HFA 2 puff inhalation BID 12/30/22 12/05/23 History aerosol inhaler (Asmanex HFA) rosuvastatin 40 mg tablet (Crestor) 40 mg PO QHS 12/30/22 12/04/23 History tiotropium 2.5 mcg-olodaterol 2.5 2 inh inhalation DAILY 12/30/22 12/05/23 History mcg/actuation mist for inhalation (Stiolto Respimat) aspirin 81 mg tablet,delayed 81 mg PO DAILY 12/05/23 12/05/23 History release (Adult Aspirin Regimen) furosemide 40 mg tablet 40 mg PO DAILY 12/05/23 12/05/23 History Allergy/AdvReac Type Severity Reaction Status Date / Time No Known Allergies Allergy Verified 04/27/23 08:45 Surgical History Hx of CABG History of coronary artery stent placement Social History household members: spouse Smoking Status: Former smoker Physical Exam Const alert and oriented x3 HEENT normocephalic Eyes no scleral icterus Resp normal respiratory effort Resp Narrative: Bibasal crackles. Auscultation: wheezes expiratory wheezes and throughout Extremity no pedal edema Risk Stratification Risk Stratification Applicable: No Charges/Coding Visit Charges Inpatient E&M: 50583 Init Hosp L2 Objective Data Vital Signs: Vital Signs Temp Pulse Resp BP Pulse Ox O2 Del Method O2 Flow Rate 97.8 F 81 22 H 122/45 H 92 Nasal Cannula 10 12/06/23 08:55 12/06/23 12:28 12/06/23 12:28 12/06/23 08:55 12/06/23 08:55 12/06/23 08:55 12/06/23 08:55 FiO2 40 12/06/23 04:00 Oxygen Flow Rate (L/min) 10 Oxygen Delivery Method Nasal Cannula Weight: 156 lb 11.979 oz Body Mass Index (BMI) 26.1 Intake & Output: Intake and Output for Last 24 Hours 12/04/23 12/05/23 12/06/23 23:59 23:59 23:59 Intake Total 8.9 / 8.9 265.17 / 265.17 Output Total 1950 / 1950 Balance 8.9 / -391.1 -1684.83 / -1684.83 Lab / Micro Data 12/06/23 06:00 12/06/23 06:00 Labs: Laboratory Results - last 24 hr 12/05/23 18:00: WBC 8.7, RBC 4.93, Hgb 14.2, Hct 45.9, MCV 93.1, MCH 28.8, MCHC 30.9 L, RDW Std Deviation 52.1 H, RDW Coeff of Audi 15.4 H, Plt Count 167, MPV 10.7, Immature Gran % (Auto) 0.300, Neut % (Auto) 78.1 H, Lymph % (Auto) 14.0 L, Alpine % (Auto) 6.2, Eos % (Auto) 0.6, Baso % (Auto) 0.8, Absolute Neuts (auto) 6.8, Absolute Lymphs (auto) 1.22, Nucleated RBC % 0, PT 14.0, INR 1.1, APTT 32.0, Sodium 137, Potassium 4.0, Chloride 101, Carbon Dioxide 31.0, Anion Gap 5, BUN 43 H, Creatinine 2.33 H, Estim Creat Clear Calc 23.46, Est GFR (MDRD) Af Amer 35 L, Est GFR (MDRD) Non-Af 29 L, BUN/Creatinine Ratio 18.5, Glucose 205 H, Lactic Acid 1.1, Calcium 8.9, Total Bilirubin 0.30, AST 14 L, ALT 15 L, Alkaline Phosphatase 76, Troponin I High Sens 140 H*, B-Natriuretic Peptide 293.4 H, Total Protein 7.4, Albumin 2.8 L, Globulin 4.6 H, Albumin/Globulin Ratio 0.6 L 12/05/23 20:14: Troponin I High Sens 163 H* 12/05/23 22:33: POC Glucose 133 H 12/06/23 00:00: Troponin I High Sens 192 H* 12/06/23 01:30: APTT 77.4 H 12/06/23 05:25: POC Glucose 55 L 12/06/23 05:46: POC Glucose 67 L 12/06/23 06:00: WBC 10.7, RBC 4.57 L, Hgb 13.3, Hct 42.2, MCV 92.3, MCH 29.1, M CHC 31.5 L, RDW Std Deviation 51.4 H, RDW Coeff of Audi 15.2 H, Plt Count 155, MPV 10.8, Sodium 141, Potassium 3.5, Chloride 102, Carbon Dioxide 30.0, Anion Gap 9, BUN 42 H, Creatinine 1.99 H, Estim Creat Clear Calc 27.47, Est GFR (MDRD) Af Amer 42 L, Est GFR (MDRD) Non-Af 35 L, BUN/Creatinine Ratio 21.1 H, Glucose 88, Hemoglobin A1c 7.3 H, Calcium 8.9, Triglycerides 81, Cholesterol 113, LDL Cholesterol 37, VLDL Cholesterol 16, HDL Cholesterol 60 12/06/23 06:11: POC Glucose 100 12/06/23 10:21: APTT 46.9 H 12/06/23 11:20: POC Glucose 59 L 12/06/23 12:06: POC Glucose 97 ABG Data ABG results: ABG 12/05/23 12/05/23 18:09 18:54 Specimen Type ART ART Sample Site L Radial L Radial pH 7.33 L 7.32 L Bicarbonate Actual 31.6 H 30.0 H Total CO2 34 32 Base Excess 6 H 4 H O2 Saturation 92 L 89 L O2 % 50.0 50.0 ABG pCO2 60.5 H 58.4 H ABG pO2 71 L 63 L Meliton Test Positive O2 Delivery Device Venti Mask Venti Mask Vent Mode Not entered Not entered Cardiology Labs/Tests 12/05/23 18:00: WBC 8.7, RBC 4.93, Hgb 14.2, Hct 45.9, MCV 93.1, MCH 28.8, MCHC 30.9 L, Plt Count 167, MPV 10.7, Immature Gran % (Auto) 0.300, Neut % (Auto) 78.1 H, Lymph % (Auto) 14.0 L, Alpine % (Auto) 6.2, Eos % (Auto) 0.6, Baso % (Auto) 0.8, Absolute Neuts (auto) 6.8, Nucleated RBC % 0, PT 14.0, INR 1.1, APTT 32.0, Sodium 137, Potassium 4.0, Chloride 101, Carbon Dioxide 31.0, Anion Gap 5, BUN 43 H, Creatinine 2.33 H, Est GFR (MDRD) Af Amer 35 L, Est GFR (MDRD) Non-Af 29 L, BUN/Creatinine Ratio 18.5, Glucose 205 H, Lactic Acid 1.1, Calcium 8.9, Total Bilirubin 0.30, B-Natriuretic Peptide 293.4 H 12/05/23 18:09: pH 7.33 L, Bicarbonate Actual 31.6 H, Base Excess 6 H, O2 Saturation 92 L, ABG pCO2 60.5 H, ABG pO2 71 L 12/05/23 18:54: pH 7.32 L, Bicarbonate Actual 30.0 H, Base Excess 4 H, O2 Saturation 89 L, ABG pCO2 58.4 H, ABG pO2 63 L, Meliton Test Positive 12/06/23 01:30: APTT 77.4 H 12/06/23 06:00: WBC 10.7, RBC 4.57 L, Hgb 13.3, Hct 42.2, MCV 92.3, MCH 29.1, M CHC 31.5 L, Plt Count 155, MPV 10.8, Sodium 141, Potassium 3.5, Chloride 102, Carbon Dioxide 30.0, Anion Gap 9, BUN 42 H, Creatinine 1.99 H, Est GFR (MDRD) Af Amer 42 L, Est GFR (MDRD) Non-Af 35 L, BUN/Creatinine Ratio 21.1 H, Glucose 88, Hemoglobin A1c 7.3 H, Calcium 8.9, Triglycerides 81, Cholesterol 113, LDL Cholesterol 37, VLDL Cholesterol 16, HDL Cholesterol 60 12/06/23 10:21: APTT 46.9 H Rhythm: EKG: ECHO: Stress Test: Cardiac Cath: PCI: CT Surgery: Holter monitor: EPS: PPM: CXR: Chest CT Scan: Radiography Diagnostic Testing: Radiology Impression Chest X-Ray 12/05/23 18:18 IMPRESSION: Bilateral effusions with patchy bilateral airspace disease which may represent edema. Electronically Signed: Kris Burdick MD at 18:55 EDT , Echocardiogram 12/05/23 22:06 Interpretation Summary Mildly dilated left ventricle. The estimated ejection fraction is 20-25 %. There is severe global hypokinesis of the left ventricle. There is evidence of diastolic dysfunction. Ordering Physician: Bro Redd Referring Physician: MD Mich Rosales Performed By: Olga Lambert RDCS
--- NOTE | 2023-12-06 14:18 | CASEMGMT ---
Per admission questions patient does not have advance directives and patient is not interested in documents. Chen [employer] DAVID
[2023-12-06 16:57] LABS: Bedside Glucose 46 mg/dL (74-106)
[2023-12-06 17:37] LABS: Bedside Glucose 142 mg/dL (74-106)
--- NOTE | 2023-12-06 18:22 | NURSING ---
Reviewed and agreed on charting with Jenna Whitaker RN
[2023-12-06] MEDS: ROSUVASTATIN CALCIUM 40 MG TABLET PO (21:21)
[2023-12-06 22:42] LABS: Bedside Glucose 127 mg/dL (74-106)
[2023-12-07] VITALS (14 sets, daily range): BP systolic 97–128; BP diastolic 47–77; PULSE 21–94; RESP 18–78; TEMP 36–36.7; O2SAT 92–100; BMI 25.1
[2023-12-07] MEDS: HYDROcodone Bitartrate/Apap 5/325 Tablet PO ×3 (01:50→21:48)
[2023-12-07] MEDS: Menthol/Lanolin/Calamine/Znox 113 GM Tube 1 APPLIC TOPICAL ×3 (05:59→21:50)
[2023-12-07] MEDS: Gabapentin 400 MG Capsule PO ×3 (05:59→21:49)
[2023-12-07] MEDS: Budesonide Respules 0.5 MG/2 ML AMPUL.NEB. INHALATION ×2 (06:33→18:51)
[2023-12-07] MEDS: Ipratropium/Albuterol Sulfate 3 ML AMPUL.NEB INHALATION ×3 (06:33→18:51)
[2023-12-07 06:41] LABS: Bedside Glucose 110 mg/dL (74-106)
[2023-12-07] MEDS: Furosemide 500 MG in Empty Viaflex 50 mL 1 EACH CONT INF (07:34)
[2023-12-07 08:10] LABS: Absolute Neutrophil Count 7.4 X10^3/uL (2.0-7.7); Basophil# 0.05 X10^3/uL; Basophil% 0.5 % (0-1); Eosinophil# 0.11 X10^3/uL; Eosinophils% 1.1 % (0-5); Hematocrit 45.7 % (40-54); Hemoglobin 14.4 g/dL (13.0-16.5); Lymphocyte % 17.3 % (19-41); Mean Corp Hgb Conc 31.5 g/dL (32-36); Mean Corpuscular Hgb 29.3 pg (27.0-32.0); Mean Corpuscular Volume 93.1 fL (80-94); Monocyte# 1.04 X10^3/uL; NRBC Flagged by Analyzer 0 % (0-5); Neutrophil # 7.38 X10^3/uL (2.7-7.7); Neutrophil % 70.7 % (47-70); Platelet Count 163 K/mm3 (150-450); RBC Distribution Width CV 15.1 % (11.6-14.6); RBC Distribution Width SD 51.3 fl (35.1-43.9); Red Blood Count 4.91 M/mm3 (4.6-6.2); White Blood Count 10.4 K/mm3 (4.4-11.0)
[2023-12-07 08:51] LABS: Anion Gap 3 (5-15); BUN 42 mg/dL (7-18); BUN/Creat Ratio 20.1 RATIO (10-20); Chloride 99 mmol/L (98-107); Creatinine, Serum 2.09 mg/dL (0.70-1.30); EST Glomerular Filtration Rate 33 mL/min (>60); Est Glom Filt Rate - Afr Amer 40 mL/min (>60); Estimated Creatinine Clearance 26.16 ml/min; Glucose 112 mg/dL (74-106); Potassium 3.6 mmol/L (3.5-5.1); Sodium Level 138 mmol/L (136-145)
[2023-12-07] MEDS: amLODIPine 10 MG Tablet PO (09:16)
[2023-12-07] MEDS: Aspirin E.C. 81 MG Tablet PO (09:16)
[2023-12-07] MEDS: Carvedilol 3.125 MG TABLET PO ×2 (09:16→21:47)
[2023-12-07] MEDS: Clopidogrel Bisulfate 75 MG Tablet PO (09:17)
[2023-12-07] MEDS: Sertraline 100 MG Tablet PO (09:17)
--- NOTE | 2023-12-07 09:31 | EX.PCM.CONCC ---
Assessment & Plan Assessment/Plan (1) Acute respiratory failure with hypoxia and hypercarbia: PLAN: Plan RECOMMENDATIONS: 1. Continue ongoing attempts at diuresis as tolerated by hemodynamics and renal function. 2. Monitor bicarbonate closely. If continues to rise, I would advocate decreasing diuresis to prevent further contraction alkalosis. 3. Agree with scheduled bronchodilators. 4. Will obtain follow-up chest x-ray and check respiratory viral panel. 5. Continue to wean FiO2 to maintain saturations at or above 90%. IMPRESSIONS: 1. Acute respiratory failure with hypoxemia and hypercapnia Clinical suspicion for underlying decompensated heart failure coupled with possible chronic obstructive pulmonary disease. The patient does have a tobacco abuse history, but is not currently followed by a geospatial imagery intelligence analyst. He is being actively diuresed, but remains tenuous from a respiratory perspective. Will plan to obtain follow-up chest x-ray today and obtain respiratory viral panel. The patient's chemistry profile will need to be followed closely for further elevation in his serum bicarbonate. If this continues to rise, I would advocate that we decrease his Lasix to prevent further contraction alkalosis and compensatory CO2 retention. The patient is afebrile with a normal white blood cell count and no cough. Therefore, I do not see an indication for antimicrobials. Continue supportive care with supplemental oxygen to maintain saturations at or above 90%. I agree with continuing scheduled bronchodilator therapy. 2. NSTEMI Agree that this was most likely secondary to presenting hypoxemia. Cardiology is currently following. Will defer additional medical management accordingly. 3. History of tobacco dependency/coronary artery disease/chronic kidney disease/diabetes mellitus Complicates care, management, recovery and prognosis. Continue current supportive care as noted above. This note was generated with [employer] dictation software. It may contain incorrect words, spelling, and punctuation that were not noted in checking the note before signing. HPI Consult Data Date of Consult: 12/07/23 HPI Narrative Reason for Consultation: Respiratory failure HPI Narrative: The patient is a 78-year-old male, with a history as outlined below, who presented to the emergency department on December 04 with reported shortness of breath. The patient does have a tobacco abuse history and questionable COPD, but has not followed by a geospatial imagery intelligence analyst on an outpatient basis. He reported that he does not regularly utilize supplemental oxygen at his baseline. The patient currently denies the presence of a cough or sputum production. On presentation to the emergency department, the patient was documented to have a temperature of 96 ?F. He was otherwise hemodynamically stable maintaining saturation of 92% on 6 L/min. Laboratory evaluation revealed a normal white blood cell count. Chemistry profile was notable for a BUN of 43 and creatinine of 2.3. Lactate was within normal limits. Troponin was elevated at 140 with a BNP of 293. Chest x-ray demonstrated bilateral pleural effusions with patchy airspace disease. Surface echocardiogram completed on December 05 demonstrated severe hypokinesis of the LV with an ejection fraction of 20 to 25%. The patient was seen in consultation by cardiology, who recommended ongoing attempts at diuresis. This morning, the patient's bicarbonate has increased to 36. Creatinine is relatively stable at 2.09. [facility] Medical History Hearing loss, left Hearing loss, right Anxiety Diabetes Chronic pain Kidney stones Kidney disease Former smoker Sleep apnea COPD (chronic obstructive pulmonary disease) Chest pain Myocardial infarct Hypertension DVT (deep venous thrombosis) Unable to walk Acute kidney injury Home Medications ?Medication ?Instructions ?Recorded ?Last Taken ?Type gabapentin 400 mg capsule 400 mg PO TID NERVE PAIN 08/20/18 12/05/23 History glipizide 5 mg tablet 5 mg PO .BEFORE MEALS DM 08/20/18 12/05/23 History sertraline 50 mg tablet 100 mg PO DAILY DEPRESSION 08/20/18 12/05/23 History carvedilol 3.125 mg tablet 3.125 mg PO BID 08/21/18 12/05/23 Rx clopidogrel 75 mg tablet 75 mg PO DAILY 08/21/18 12/05/23 Rx albuterol 90 mcg/actuation aerosol 90 mcg inhalation .4X A DAY PRN SOB 12/30/22 Unknown History inhaler amlodipine 10 mg tablet 10 mg PO DAILY 12/30/22 Unknown History cholecalciferol (vitamin D3) 25 75 mcg PO DAILY 12/30/22 12/05/23 History mcg (1,000 unit) capsule cyanocobalamin (vitamin B-12) 1,000 mcg PO DAILY 12/30/22 12/05/23 History 1,000 mcg capsule hydrocodone-acetaminophen 5-325mg 1 tab PO TID 12/30/22 12/05/23 History 5mg-325mg insulin glargine 100 unit/mL 50 unit subcut QHS 12/30/22 12/04/23 History subcutaneous solution mometasone 200 mcg/actuation HFA 2 puff inhalation BID 12/30/22 12/05/23 History aerosol inhaler (Asmanex HFA) rosuvastatin 40 mg tablet (Crestor) 40 mg PO QHS 12/30/22 12/04/23 History tiotropium 2.5 mcg-olodaterol 2.5 2 inh inhalation DAILY 12/30/22 12/05/23 History mcg/actuation mist for inhalation (Stiolto Respimat) aspirin 81 mg tablet,delayed 81 mg PO DAILY 12/05/23 12/05/23 History release (Adult Aspirin Regimen) furosemide 40 mg tablet 40 mg PO DAILY 12/05/23 12/05/23 History Allergy/AdvReac Type Severity Reaction Status Date / Time No Known Allergies Allergy Verified 04/27/23 08:45 Surgical History Hx of CABG History of coronary artery stent placement Social History household members: spouse Smoking Status: Former smoker ROS ROS Narrative 10 systems were reviewed with pertinent positives as noted in the HPI above. Physical Exam Const alert and no apparent distress Constitutional Narrative: Sitting in bedside recliner. General Appearance: cooperative HEENT normocephalic and head/scalp atraumatic Eyes PERRL, EOMs intact bilaterally and conjunctivae normal Neck supple General: trachea midline Chest inspection of chest normal Resp normal respiratory effort Auscultation: rales and diminished lung sounds Cardio regular rate and regular rhythm GI normal to inspection, nondistended, normoactive bowel sounds Extremity no clubbing, cyanosis or edema Skin no rashes or lesions noted Neuro CN's II-XII intact bilaterally, moves all extremities and no focal motor deficits Psych cooperative and affect normal Lab / Micro Data 12/07/23 07:33 12/07/23 07:33 Labs: Laboratory Results - last 24 hr 12/06/23 06:00: Hemoglobin A1c 7.3 H 12/06/23 10:21: APTT 46.9 H 12/06/23 11:20: POC Glucose 59 L 12/06/23 12:06: POC Glucose 97 12/06/23 16:39: POC Glucose 46 L 12/06/23 17:18: POC Glucose 142 H 12/06/23 21:27: POC Glucose 127 H 12/07/23 06:03: POC Glucose 110 H 12/07/23 07:33: WBC 10.4, RBC 4.91, Hgb 14.4, Hct 45.7, MCV 93.1, MCH 29.3, MCHC 31.5 L, RDW Std Deviation 51.3 H, RDW Coeff of Audi 15.1 H, Plt Count 163, MPV 11.0, Immature Gran % (Auto) 0.400, Neut % (Auto) 70.7 H, Lymph % (Auto) 17.3 L, [place] % (Auto) 10.0, Eos % (Auto) 1.1, Baso % (Auto) 0.5, Absolute Neuts (auto) 7.4, Absolute Lymphs (auto) 1.80, Nucleated RBC % 0, Sodium 138, Potassium 3.6, Chloride 99, Carbon Dioxide 36.0 H, Anion Gap 3 L, BUN 42 H, Creatinine 2.09 H, Estim Creat Clear Calc 26.16, Est GFR (MDRD) Af Amer 40 L, Est GFR (MDRD) Non-Af 33 L, BUN/Creatinine Ratio 20.1 H, Glucose 112 H, Calcium 9.0 Imaging Radiology Impression Echocardiogram 12/05/23 22:06 Interpretation Summary Mildly dilated left ventricle. The estimated ejection fraction is 20-25 %. There is severe global hypokinesis of the left ventricle. There is evidence of diastolic dysfunction. Ordering Physician: Bro Redd Referring Physician: MD Connie Mich Performed By: Olga Lambert, RDCS Charges/Coding Visit Charges Inpatient E&M: 24298 Init Hosp L3
[2023-12-07 10:17] LABS: Procalcitonin 0.21 ng/mL (0.00-0.09)
[2023-12-07 11:25] LABS: Bedside Glucose 170 mg/dL (74-106)
[2023-12-07] MEDS: Insulin Lispro 100 UNIT/ML INSULN.PEN SC ×2 (11:33→16:12)
--- NOTE | 2023-12-07 12:01 | PN_ITS ---
Subjective Subjective Patient seen and examined. His oxygen requirements have gone up and he is on AirVO. He says he feels worse than before and finds his bed also very uncomfortable. His creatinine today is 2.09. He is on Airvo at FiO2 of 55 and 30 L/min. Objective Data Objective Data Vital Signs: Vital Signs Temp Pulse Resp BP Pulse Ox O2 Del Method O2 Flow Rate 96.8 F L 94 20 H 128/77 H 93 Airvo 30 12/07/23 08:22 12/07/23 10:59 12/07/23 10:59 12/07/23 08:22 12/07/23 10:59 12/07/23 08:22 12/07/23 08:22 FiO2 55 12/07/23 10:59 Oxygen Flow Rate (L/min) 30 Oxygen Delivery Method Airvo Weight: 151 lb 3.794 oz Body Mass Index (BMI) 25.1 Intake & Output: Intake and Output for Last 24 Hours 12/05/23 12/06/23 12/07/23 23:59 23:59 23:59 Intake Total 8.9 / 8.9 921.32 / 1501.32 852.82 / 852.82 Output Total 2500 / 4100 2450 / 2450 Balance 8.9 / -391.1 -1578.68 / -2598.68 -1597.18 / -1597.18 Lab / Micro Data 12/07/23 07:33 12/07/23 07:33 Labs: Laboratory Results - last 24 hr 12/06/23 12:06: POC Glucose 97 12/06/23 16:39: POC Glucose 46 L 12/06/23 17:18: POC Glucose 142 H 12/06/23 21:27: POC Glucose 127 H 12/07/23 06:03: POC Glucose 110 H 12/07/23 07:33: WBC 10.4, RBC 4.91, Hgb 14.4, Hct 45.7, MCV 93.1, MCH 29.3, MCHC 31.5 L, RDW Std Deviation 51.3 H, RDW Coeff of Audi 15.1 H, Plt Count 163, MPV 11.0, Immature Gran % (Auto) 0.400, Neut % (Auto) 70.7 H, Lymph % (Auto) 17.3 L, [place] % (Auto) 10.0, Eos % (Auto) 1.1, Baso % (Auto) 0.5, Absolute Neuts (auto) 7.4, Absolute Lymphs (auto) 1.80, Nucleated RBC % 0, Sodium 138, Potassium 3.6, Chloride 99, Carbon Dioxide 36.0 H, Anion Gap 3 L, BUN 42 H, Creatinine 2.09 H, Estim Creat Clear Calc 26.16, Est GFR (MDRD) Af Amer 40 L, Est GFR (MDRD) Non-Af 33 L, BUN/Creatinine Ratio 20.1 H, Glucose 112 H, Calcium 9.0, Procalcitonin 0.21 H 12/07/23 11:06: POC Glucose 170 H Micro: Microbiology 12/07/23 10:49 Mucosa - Nasopharyngeal Coronavirus COVID-19 PCR - Final Physical Exam Const alert and oriented x3 Constitutional Narrative: In bed. on Airvo. in mild respiratory distress though he is able to finish his sentences. General Appearance: cooperative HEENT normocephalic, head/scalp atraumatic, moist oral mucous membranes and oropharynx normal Eyes PERRL and EOMs intact bilaterally Neck no lymphadenopathy, supple and no JVD Lymph Lymphatic: no lymphadenopathy noted and no lymphedema noted Resp Resp Narrative: Moderately diminished breath sounds bilaterally. Mild wheezes and few crackles bilaterally. On Airvo with oxygen flow rate of 30 L/min and FiO2 of 55%. Cardio regular rate, regular rhythm, S1 normal heart sound, S2 normal heart sound and no murmurs GI normal to inspection, nondistended, normoactive bowel sounds, soft to palpation, non-tender, non-distended and hepatosplenomegaly Extremity normal capillary refill, no clubbing, cyanosis or edema and no calf tenderness Extremity Narrative: Bilateral lower extremity edema General Extremity: no tenderness to palpation of joints or extremities Skin General Skin Exam: no breakdown Neuro CN's II-XII intact bilaterally, moves all extremities and no focal motor deficits Sensorium / Orientation: awake and alert Coordination / Balance: [id number] test normal Motor Exam: strength 5/5 throughout and general weakness Psych thought process normal, cooperative and affect normal Appearance: appropriate Assessment & Plan Assessment/Plan (1) CHF exacerbation: QUALIFIERS: Heart failure type: systolic Qualified Code(s): I 50.23 - Acute on chronic systolic (congestive) heart failure (2) Non-ST elevated myocardial infarction: PLAN: Plan #Acute hypoxic and hypercapnic respiratory failure due to acute heart failure with reduced EF * Now on Airvo and is on 30 L per admitted at FiO2 of 55%. * Chest x-ray showed bilateral pleural effusions and evidence of fluid overload. * 2D echo ordered showed EF of 20 to 25% and severe global hypokinesis of left ventricle ventricle with evidence of diastolic dysfunction and mildly dilated left ventricle. On IV Lasix drip. * Breathing treatments and bronchodilators. Titrate oxygen to maintain saturation above 90%. * Cardiology reviewed patient and recommends continuing diuresis with Lasix drip. * Pulmonology also consulted today due to increasing oxygen requirements. * #Non-STEMI: * Initial troponin was elevated and trended up somewhat with peak of 192. * On heparin drip and aspirin as well as high intensity statin. * This may also be due to troponin leak from the respiratory failure as patient denies any chest pain. Cardiology consulted. Await recs. * 2D echo done and results pending. * #Elevated bicarb: Bicarb is up to 36 from 30 yesterday. Feels likely due to diuresis with Lasix. If bicarb continues to trend upwards, will have to hold diuresis to prevent contraction alkalosis #Type 2 diabetes mellitus: On Lantus and glipizide. Insulin sliding scale. Accu-Cheks ACHS. #Depression: On sertraline #Hyperlipidemia: On statin CAD: On aspirin, statin and Plavix #CKD stage IV: * Patient used to be on dialysis but this was Discontinued in April 2024 per nephrology. * Monitor kidney function. Creatinine is 2.09 today down from 2.33 on admission. His baseline seems to be around 3-3.4 DVT prophylaxis: Subcu heparin. Heparin drip discontinued per cardiology. CODE STATUS: Full code Charges/Coding Visit Charges Inpatient E&M: 64817 Subs Hosp L3
--- NOTE | 2023-12-07 12:30 | RAD_ITS ---
STUDY: X-RAY CHEST REASON FOR EXAM: Male, 78 years old. Respiratory Failure TECHNIQUE: Single AP portable view of the chest. COMPARISON: Comparison is made with prior study dated December 05, 2023. FINDINGS: Since prior study, there is been a mild improvement in the lateral pleural effusions with bilateral airspace disease worse in the left hemithorax. Vascular congestion has improved. Sternal cerclage wires and vascular clips are present from a prior sternotomy and coronary artery bypass graft procedure (CABG). Normal mediastinum and loco. Normal visualized pulmonary arteries. There is atherosclerotic tortuosity of the aortic arch and descending thoracic aorta. There are diffuse degenerative changes of the visualized thoracic spine. Normal visualized ribs, clavicles, and shoulders. There is no demonstrated abnormality of the visualized soft tissue structures of the upper abdomen. RAD/Chest 1 View (Portable) IMPRESSION: Mild improvement in the lung aeration. Residual bilateral pleural effusions and patchy infiltrates worse in the left hemithorax. The CHF has improved. Electronically Signed: Randolph Joyce MD at 13:30 EDT ,
[2023-12-07 16:28] LABS: Bedside Glucose 203 mg/dL (74-106)
[2023-12-07] MEDS: 0.9% Saline Lock 10 ML Syringe IV ×2 (16:58→21:51)
--- NOTE | 2023-12-07 17:13 | PCM.PN.CARD ---
Subjective Subjective Shortness of breath is improved. Objective Data Vital Signs: Vital Signs Temp Pulse Resp BP Pulse Ox O2 Del Method O2 Flow Rate 97.3 F L 75 18 108/47 L 96 Airvo 10 12/07/23 16:59 12/07/23 16:59 12/07/23 16:59 12/07/23 16:59 12/07/23 16:59 12/07/23 16:59 12/07/23 16:59 FiO2 55 12/07/23 10:59 Oxygen Flow Rate (L/min) 10 Oxygen Delivery Method Airvo Weight: 151 lb 3.794 oz Body Mass Index (BMI) 25.1 Intake & Output: Intake and Output for Last 24 Hours 12/05/23 12/06/23 12/07/23 23:59 23:59 23:59 Intake Total 8.9 / 8.9 921.32 / 1501.32 1112.10 / 1112.10 Output Total 2500 / 4100 2750 / 2750 Balance 8.9 / -391.1 -1578.68 / -2598.68 -1637.90 / -1637.90 Lab / Micro Data 12/07/23 07:33 12/07/23 07:33 Labs: Laboratory Results - last 24 hr 12/06/23 17:18: POC Glucose 142 H 12/06/23 21:27: POC Glucose 127 H 12/07/23 06:03: POC Glucose 110 H 12/07/23 07:33: WBC 10.4, RBC 4.91, Hgb 14.4, Hct 45.7, MCV 93.1, MCH 29.3, MCHC 31.5 L, RDW Std Deviation 51.3 H, RDW Coeff of Audi 15.1 H, Plt Count 163, MPV 11.0, Immature Gran % (Auto) 0.400, Neut % (Auto) 70.7 H, Lymph % (Auto) 17.3 L, [place] % (Auto) 10.0, Eos % (Auto) 1.1, Baso % (Auto) 0.5, Absolute Neuts (auto) 7.4, Absolute Lymphs (auto) 1.80, Nucleated RBC % 0, Sodium 138, Potassium 3.6, Chloride 99, Carbon Dioxide 36.0 H, Anion Gap 3 L, BUN 42 H, Creatinine 2.09 H, Estim Creat Clear Calc 26.16, Est GFR (MDRD) Af Amer 40 L, Est GFR (MDRD) Non-Af 33 L, BUN/Creatinine Ratio 20.1 H, Glucose 112 H, Calcium 9.0, Procalcitonin 0.21 H 12/07/23 11:06: POC Glucose 170 H 12/07/23 16:09: POC Glucose 203 H Micro: Microbiology 12/07/23 10:49 Mucosa - Nasopharyngeal Coronavirus COVID-19 PCR - Final Cardiology Labs/Tests 12/07/23 07:33: WBC 10.4, RBC 4.91, Hgb 14.4, Hct 45.7, MCV 93.1, MCH 29.3, MCHC 31.5 L, Plt Count 163, MPV 11.0, Immature Gran % (Auto) 0.400, Neut % (Auto) 70.7 H, Lymph % (Auto) 17.3 L, [place] % (Auto) 10.0, Eos % (Auto) 1.1, Baso % (Auto) 0.5, Absolute Neuts (auto) 7.4, Nucleated RBC % 0, Sodium 138, Potassium 3.6, Chloride 99, Carbon Dioxide 36.0 H, Anion Gap 3 L, BUN 42 H, Creatinine 2.09 H, Est GFR (MDRD) Af Amer 40 L, Est GFR (MDRD) Non-Af 33 L, BUN/Creatinine Ratio 20.1 H, Glucose 112 H, Calcium 9.0 Rhythm: EKG: ECHO: Stress Test: Cardiac Cath: PCI: CT Surgery: Holter monitor: EPS: PPM: CXR: Chest CT Scan: Radiography Diagnostic Testing: Radiology Impression Chest X-Ray 12/07/23 12:30 IMPRESSION: Mild improvement in the lung aeration. Residual bilateral pleural effusions and patchy infiltrates worse in the left hemithorax. The CHF has improved. Electronically Signed: Randolph Joyce MD at 13:30 EDT , Physical Exam Const alert and oriented x3 HEENT normocephalic Eyes no scleral icterus Resp normal respiratory effort Resp Narrative: Bilateral crackles right>left Extremity no pedal edema Psych mental status grossly normal Assessment & Plan Assessment/Plan (1) CHF exacerbation: QUALIFIERS: Heart failure type: systolic Qualified Code(s): I50.23 - Acute on chronic systolic (congestive) heart failure PLAN: DC Lasix drip. Will switch to Lasix 40 mg IV daily starting from tomorrow. Continue Coreg. No ANTOINE inhibitor because of CKD. In the past patient had presented with severe hyperkalemia and acute on chronic renal failure requiring dialysis for a brief time. (2) Non-ST elevated myocardial infarction: PLAN: Likely type II NE secondary to hypoxia and CHF. As an outpatient stress test could be considered. (3) Chronic kidney disease: QUALIFIERS: Chronic kidney disease stage: unspecified stage Qualified Code(s): N18.9 - Chronic kidney disease, unspecified Charges/Coding Visit Charges Inpatient E&M: 60447 Subs Hosp L2
--- NOTE | 2023-12-07 17:22 | CASEMGMT ---
REGLA GUTIERREZ NOTE: Therapy note reviewed. Pt ambulated 8 ft x 2 w/CGA and WW today. Additional therapy recommended. Discussed therapy recommendations and discharge plan. Pt does not want to go to a SNF, he wants to go home and states feels he will be safe @ home. Discussed HHC and he and family are agreeable. Pt and would like [facility] as their 1st choice and decline wanting list of other options unless [facility] unable to accept him. Order for HHC: SN and PT/OT placed. Message left for Dona ARAUZ CM, that referral needs sent tomorrow for HHC. Rl MCNAMARA RN, CM
[2023-12-07] MEDS: ROSUVASTATIN CALCIUM 40 MG TABLET PO (21:47)
[2023-12-07 23:01] LABS: Bedside Glucose 156 mg/dL (74-106)
[2023-12-08] VITALS (12 sets, daily range): BP systolic 94–120; BP diastolic 47–80; PULSE 78–96; RESP 14–26; TEMP 36.1–36.4; O2SAT 91–99; BMI 24.8
[2023-12-08] MEDS: Gabapentin 400 MG Capsule PO ×3 (06:27→21:42)
[2023-12-08] MEDS: Insulin Lispro 100 UNIT/ML INSULN.PEN SC ×3 (06:27→16:52)
[2023-12-08] MEDS: Menthol/Lanolin/Calamine/Znox 113 GM Tube 1 APPLIC TOPICAL ×3 (06:27→21:42)
[2023-12-08 07:11] LABS: Bedside Glucose 171 mg/dL (74-106)
[2023-12-08] MEDS: Ipratropium/Albuterol Sulfate 3 ML AMPUL.NEB INHALATION ×3 (07:12→18:45)
[2023-12-08] MEDS: Albuterol 2.5 MG/3 ML VIAL.NEB. INHALATION (07:12)
[2023-12-08 07:44] LABS: Absolute Lymphocyte Count 1.48 X10^3/uL (0.83-4.51); Absolute Neutrophil Count 8.5 X10^3/uL (2.0-7.7); Basophil# 0.05 X10^3/uL; Basophil% 0.4 % (0-1); Eosinophil# 0.32 X10^3/uL; Eosinophils% 2.8 % (0-5); Hematocrit 46.4 % (40-54); Hemoglobin 14.3 g/dL (13.0-16.5); Lymphocyte # 1.48 X10^3/ul (0.83-4.51); Mean Corp Hgb Conc 30.8 g/dL (32-36); Mean Corpuscular Hgb 28.9 pg (27.0-32.0); Mean Corpuscular Volume 93.7 fL (80-94); Mean Platelet Vol. 10.7 fl (6.2-12.0); Monocyte# 0.99 X10^3/uL; Monocyte% 8.7 % (0-10); NRBC Flagged by Analyzer 0 % (0-5); Neutrophil # 8.51 X10^3/uL (2.7-7.7); Neutrophil % 74.7 % (47-70); Platelet Count 160 K/mm3 (150-450); RBC Distribution Width SD 51.4 fl (35.1-43.9); Red Blood Count 4.95 M/mm3 (4.6-6.2); White Blood Count 11.4 K/mm3 (4.4-11.0)
[2023-12-08 08:05] LABS: Anion Gap 4 (5-15); BUN 52 mg/dL (7-18); BUN/Creat Ratio 25.1 RATIO (10-20); Calcium,Total 8.9 mg/dL (8.5-10.1); Chloride 98 mmol/L (98-107); Creatinine, Serum 2.07 mg/dL (0.70-1.30); EST Glomerular Filtration Rate 33 mL/min (>60); Est Glom Filt Rate - Afr Amer 40 mL/min (>60); Estimated Creatinine Clearance 26.41 ml/min; Glucose 185 mg/dL (74-106); Potassium 3.6 mmol/L (3.5-5.1); Sodium Level 137 mmol/L (136-145)
[2023-12-08] MEDS: HYDROcodone Bitartrate/Apap 5/325 Tablet PO ×2 (08:19→21:45)
[2023-12-08] MEDS: Aspirin E.C. 81 MG Tablet PO (08:19)
--- NOTE | 2023-12-08 08:35 | PN.CC_ITS ---
Assessment & Plan Assessment/Plan (1) Acute respiratory failure with hypoxia and hypercarbia: PLAN: Plan RECOMMENDATIONS: 1. Continue ongoing attempts at diuresis as tolerated by hemodynamics and renal function. 2. Monitor bicarbonate closely. If continues to rise, I would advocate decreasing diuresis to prevent further contraction alkalosis. 3. Continue scheduled bronchodilators and steroids. 4. Continue to wean FiO2 to maintain saturations at or above 90%. IMPRESSIONS: 1. Acute respiratory failure with hypoxemia and hypercapnia Clinical suspicion for underlying decompensated heart failure coupled with possible chronic obstructive pulmonary disease. 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 He is being actively diuresed, but remains tenuous from a respiratory perspective. The patient's chemistry profile will need to be followed closely for further elevation in his serum bicarbonate. If this continues to rise, I would advocate that we decrease his Lasix to prevent further contraction alkalosis and compensatory CO2 retention. Ultimately, acetazolamide may need to be administered if bicarb continues to rise. The patient is afebrile with a normal white blood cell count and no cough. Therefore, I do not see an indication for antimicrobials. Continue supportive care with supplemental oxygen to maintain saturations at or above 90%. I agree with continuing scheduled bronchodilator therapy and steroids, as ordered. 2. NSTEMI Agree that this was most likely secondary to presenting hypoxemia. Cardiology is currently following. Will defer additional medical management accordingly. 3. History of tobacco dependency/coronary artery disease/chronic kidney disease/diabetes mellitus Complicates care, management, recovery and prognosis. Continue current supportive care as noted above. This note was generated with [employer] dictation software. It may contain incorrect words, spelling, and punctuation that were not noted in checking the note before signing. Subjective Subjective The patient was seen and examined at the bedside this morning. Events from the last 24 hours have been reviewed. The patient is currently afebrile, hemodynamically stable and maintaining appropriate oxygen saturations on heated high flow oxygen with an FiO2 requirement of 60%. The patient does report some mild shortness of breath this morning. He was transitioned yesterday from continuous Lasix infusion to once daily IV dosing. His creatinine is relatively stable at 2.07. Bicarbonate is stable at 35. Objective Data Objective Data The patient's most recent lab work, culture data and imaging studies have all been personally reviewed. Surface echocardiogram demonstrated severe global hypokinesis of the LV with an ejection fraction of 20 to 25%. Respiratory viral panel was negative. COVID PCR was negative. Vital Signs: Vital Signs Temp Pulse Resp BP Pulse Ox O2 Del Method O2 Flow Rate 96.9 F L 83 14 105/80 93 Airvo 50 12/08/23 03:13 12/08/23 04:07 12/08/23 04:07 12/08/23 03:13 12/08/23 04:07 12/08/23 03:15 12/08/23 03:15 FiO2 65 12/08/23 04:07 Oxygen Flow Rate (L/min) 50 Oxygen Delivery Method Airvo Weight: 149 lb 7.574 oz Body Mass Index (BMI) 24.8 Intake & Output: Intake and Output for Last 24 Hours 12/06/23 12/07/23 12/08/23 23:59 23:59 23:59 Intake Total 921.32 / 1501.32 1682.10 / 1682.10 Output Total 2500 / 4100 3550 / 3550 200 / 200 Balance -1578.68 / -2598.68 -1867.90 / -1867.90 -200 / -200 Lab / Micro Data Attestation: I reviewed the patient's lab results. 12/08/23 06:39 12/08/23 06:39 Labs: Laboratory Results - last 24 hr 12/07/23 07:33: Sodium 138, Potassium 3.6, Chloride 99, Carbon Dioxide 36.0 H, A nion Gap 3 L, BUN 42 H, Creatinine 2.09 H, Estim Creat Clear Calc 26.16, Est GFR (MDRD) Af Amer 40 L, Est GFR (MDRD) Non-Af 33 L, BUN/Creatinine Ratio 20.1 H, G lucose 112 H, Calcium 9.0, Procalcitonin 0.21 H 12/07/23 11:06: POC Glucose 170 H 12/07/23 16:09: POC Glucose 203 H 12/07/23 21:41: POC Glucose 156 H 12/08/23 06:26: POC Glucose 171 H 12/08/23 06:39: WBC 11.4 H, RBC 4.95, Hgb 14.3, Hct 46.4, MCV 93.7, MCH 28.9, M CHC 30.8 L, RDW Std Deviation 51.4 H, RDW Coeff of Audi 15.0 H, Plt Count 160, MPV 10.7, Immature Gran % (Auto) 0.400, Neut % (Auto) 74.7 H, Lymph % (Auto) 13.0 L, [place] % (Auto) 8.7, Eos % (Auto) 2.8, Baso % (Auto) 0.4, Absolute Neuts (auto) 8.5 H, Absolute Lymphs (auto) 1.48, Nucleated RBC % 0, Sodium 137, Potassium 3.6, Chloride 98, Carbon Dioxide 35.0 H, Anion Gap 4 L, BUN 52 H, C reatinine 2.07 H, Estim Creat Clear Calc 26.41, Est GFR (MDRD) Af Amer 40 L, Est GFR (MDRD) Non-Af 33 L, BUN/Creatinine Ratio 25.1 H, Glucose 185 H, Calcium 8.9 Micro: Microbiology 12/07/23 10:49 Mucosa - Nasopharyngeal Respiratory Panel (PCR) - Final 12/07/23 10:49 Mucosa - Nasopharyngeal Coronavirus COVID-19 PCR - Final Radiography Diagnostic Testing: Radiology Impression Chest X-Ray 12/07/23 12:30 IMPRESSION: Mild improvement in the lung aeration. Residual bilateral pleural effusions and patchy infiltrates worse in the left hemithorax. The CHF has improved. Electronically Signed: Randolph Joyce MD at 13:30 EDT Reading Location ID and State: [facility] / [place] , Service support , Physical Exam Const alert and no apparent distress Constitutional Narrative: Sitting in bedside recliner. General Appearance: cooperative HEENT normocephalic and head/scalp atraumatic Eyes PERRL, EOMs intact bilaterally and conjunctivae normal Neck supple General: trachea midline Chest inspection of chest normal Resp normal respiratory effort Auscultation: rales, wheezes and diminished lung sounds Cardio regular rate and regular rhythm GI normal to inspection, nondistended, normoactive bowel sounds Extremity no clubbing, cyanosis or edema Skin no rashes or lesions noted Neuro CN's II-XII intact bilaterally, moves all extremities and no focal motor deficits Psych cooperative and affect normal Charges/Coding Visit Charges Inpatient E&M: 56039 Subs Hosp L2
--- NOTE | 2023-12-08 09:37 | CASEMGMT ---
RN MATT sent referral to [facility], preferred provider, awaiting acceptance. CM will continue to follow this patient and plan for a safe discharge.
--- NOTE | 2023-12-08 09:39 | PCM.PROGNOTE ---
Subjective Subjective Patient seen and examined. He remains on AirVo. FiO2 is 64% and oxygen flow rate is 50L/min. He still feels short of breath. Review of systems is otherwise negative. Objective Data Objective Data Vital Signs: Vital Signs Temp Pulse Resp BP Pulse Ox O2 Del Method O2 Flow Rate 96.9 F L 83 14 105/80 97 Airvo 50 12/08/23 03:13 12/08/23 04:07 12/08/23 04:07 12/08/23 03:13 12/08/23 07:35 12/08/23 08:10 12/08/23 08:10 FiO2 64 12/08/23 08:10 Oxygen Flow Rate (L/min) 50 Oxygen Delivery Method Airvo Weight: 149 lb 7.574 oz Body Mass Index (BMI) 24.8 Intake & Output: Intake and Output for Last 24 Hours 12/06/23 12/07/23 12/08/23 23:59 23:59 23:59 Intake Total 921.32 / 1501.32 1682.10 / 1682.10 Output Total 2500 / 4100 3550 / 3550 200 / 200 Balance -1578.68 / -2598.68 -1867.90 / -1867.90 -200 / -200 Lab / Micro Data 12/08/23 06:39 12/08/23 06:39 Labs: Laboratory Results - last 24 hr 12/07/23 07:33: Procalcitonin 0.21 H 12/07/23 11:06: POC Glucose 170 H 12/07/23 16:09: POC Glucose 203 H 12/07/23 21:41: POC Glucose 156 H 12/08/23 06:26: POC Glucose 171 H 12/08/23 06:39: WBC 11.4 H, RBC 4.95, Hgb 14.3, Hct 46.4, MCV 93.7, MCH 28.9, MCHC 30.8 L, RDW Std Deviation 51.4 H, RDW Coeff of Audi 15.0 H, Plt Count 160, MPV 10.7, Immature Gran % (Auto) 0.400, Neut % (Auto) 74.7 H, Lymph % (Auto) 13.0 L, [place] % (Auto) 8.7, Eos % (Auto) 2.8, Baso % (Auto) 0.4, Absolute Neuts (auto) 8.5 H, Absolute Lymphs (auto) 1.48, Nucleated RBC % 0, Sodium 137, Potassium 3.6, Chloride 98, Carbon Dioxide 35.0 H, Anion Gap 4 L, BUN 52 H, Creatinine 2.07 H, Estim Creat Clear Calc 26.41, Est GFR (MDRD) Af Amer 40 L, Est GFR (MDRD) Non-Af 33 L, BUN/Creatinine Ratio 25.1 H, Glucose 185 H, Calcium 8.9 Micro: Microbiology 12/07/23 10:49 Mucosa - Nasopharyngeal Respiratory Panel (PCR) - Final 12/07/23 10:49 Mucosa - Nasopharyngeal Coronavirus COVID-19 PCR - Final Radiography Diagnostic Testing: Radiology Impression Chest X-Ray 12/07/23 12:30 IMPRESSION: Mild improvement in the lung aeration. Residual bilateral pleural effusions and patchy infiltrates worse in the left hemithorax. The CHF has improved. Electronically Signed: Randolph Joyce MD at 13:30 EDT , Physical Exam Const alert, oriented x3 and no apparent distress Constitutional Narrative: on Airvo. General Appearance: cooperative HEENT normocephalic, head/scalp atraumatic, moist oral mucous membranes and oropharynx normal Eyes PERRL and EOMs intact bilaterally Eyes Narrative: No icterus. Glasses. Neck no lymphadenopathy, supple and no JVD Lymph Lymphatic: no lymphadenopathy noted and no lymphedema noted Resp normal respiratory effort and no use of accessory muscles Resp Narrative: Moderately diminished breath sounds bilaterally. Mild wheezes and few crackles bilaterally. On Airvo with oxygen flow rate of 50 L/min and FiO2 of 64%. Cardio regular rate, regular rhythm, S1 normal heart sound, S2 normal heart sound and no murmurs GI normal to inspection, nondistended, normoactive bowel sounds, soft to palpation, non-tender, non-distended and hepatosplenomegaly Extremity normal capillary refill and no calf tenderness Extremity Narrative: Bilateral lower extremity edema General Extremity: no tenderness to palpation of joints or extremities Skin Skin Narrative: Dry skin lower extremities. General Skin Exam: no breakdown Neuro CN's II-XII intact bilaterally, moves all extremities and no focal motor deficits Sensorium / Orientation: awake and alert Coordination / Balance: [id number] test normal Motor Exam: strength 5/5 throughout and general weakness Psych thought process normal, cooperative and affect normal Appearance: appropriate Assessment & Plan Assessment/Plan (1) CHF exacerbation: QUALIFIERS: Heart failure type: systolic Qualified Code(s): I50.23 - Acute on chronic systolic (congestive) heart failure (2) Non-ST elevated myocardial infarction: PLAN: Plan #Acute hypoxic and hypercapnic respiratory failure due to acute heart failure with reduced EF Now on Airvo and is on 50 L/min at FiO2 of 55%. Chest x-ray showed bilateral pleural effusions and evidence of fluid overload. 2D echo ordered showed EF of 20 to 25% and severe global hypokinesis of left ventricle ventricle with evidence of diastolic dysfunction and mildly dilated left ventricle. Now off IV Lasix drip and on IV lasix 40mg bid. Breathing treatments with bronchodilators. Titrate oxygen to maintain saturation above 90%. Cardiology reviewed patient and recommends continuing diuresis with Lasix drip. Pulmonology on board. #Non-STEMI: Initial troponin was elevated and trended up somewhat with peak of 192. On aspirin as well as high intensity statin. This may also be due to troponin leak from the respiratory failure as patient denies any chest pain. Cardiology on board. Await recs. 2D echo as above heparin drip discontinued #Elevated bicarb: Bicarb today is 35 from 36 yesterday. Likely due to diuresis with Lasix. If bicarb continues to trend upwards, will have to hold diuresis to prevent contraction alkalosis #Type 2 diabetes mellitus: On Lantus and glipizide. Insulin sliding scale. Accu-Cheks ACHS. #Depression: On sertraline #Hyperlipidemia: On statin CAD: On aspirin, statin and Plavix #CKD stage IV: Patient used to be on dialysis but this was Discontinued in April 2024 per nephrology. Monitor kidney function. Creatinine is 2.07 today down from 2.33 on admission. His baseline seems to be around 3-3.4 DVT prophylaxis: Subcu heparin. Heparin drip discontinued per cardiology. CODE STATUS: Full code Charges/Coding Visit Charges Inpatient E&M: 88919 Subs Hosp L3
[2023-12-08] MEDS: Sertraline 100 MG Tablet PO (09:41)
[2023-12-08] MEDS: Clopidogrel Bisulfate 75 MG Tablet PO (09:41)
[2023-12-08] MEDS: 0.9% Saline Lock 10 ML Syringe IV ×4 (09:50→21:47)
[2023-12-08] MEDS: Furosemide 40 MG/4 ML Vial IV (09:50)
[2023-12-08] MEDS: Carvedilol 3.125 MG TABLET PO ×2 (11:33→21:42)
[2023-12-08 12:12] LABS: Bedside Glucose 210 mg/dL (74-106)
[2023-12-08] MEDS: Acetaminophen 325 MG Tablet 650 MG PO (14:44)
[2023-12-08 17:17] LABS: Bedside Glucose 252 mg/dL (74-106)
[2023-12-08] MEDS: Budesonide Respules 0.5 MG/2 ML AMPUL.NEB. INHALATION (18:45)
[2023-12-08] MEDS: ROSUVASTATIN CALCIUM 40 MG TABLET PO (21:42)
[2023-12-08 22:38] LABS: Bedside Glucose 291 mg/dL (74-106)
[2023-12-08] MEDS: Insulin Lispro 100 UNIT/ML INSULN.PEN 10 UNIT SC (23:13)
[2023-12-08 23:33] LABS: Bedside Glucose 281 mg/dL (74-106)
[2023-12-09] VITALS (9 sets, daily range): BP systolic 105–135; BP diastolic 59–85; PULSE 78–96; RESP 16–24; TEMP 36.1–36.7; O2SAT 93–99; BMI 24.9
[2023-12-09] MEDS: Budesonide Respules 0.5 MG/2 ML AMPUL.NEB. INHALATION ×2 (06:28→19:00)
[2023-12-09] MEDS: Ipratropium/Albuterol Sulfate 3 ML AMPUL.NEB INHALATION ×3 (06:28→19:00)
[2023-12-09] MEDS: Gabapentin 400 MG Capsule PO ×3 (06:43→21:14)
[2023-12-09] MEDS: 0.9% Saline Lock 10 ML Syringe IV ×4 (06:44→21:15)
[2023-12-09] MEDS: Menthol/Lanolin/Calamine/Znox 113 GM Tube 1 APPLIC TOPICAL ×2 (06:44→14:07)
[2023-12-09] MEDS: Insulin Lispro 100 UNIT/ML INSULN.PEN SC ×4 (06:44→21:52)
[2023-12-09] MEDS: HYDROcodone Bitartrate/Apap 5/325 Tablet PO ×2 (06:48→21:14)
[2023-12-09 07:13] LABS: Bedside Glucose 203 mg/dL (74-106)
[2023-12-09] MEDS: Carvedilol 3.125 MG TABLET PO ×2 (09:45→21:13)
[2023-12-09] MEDS: amLODIPine 10 MG Tablet PO (09:45)
[2023-12-09] MEDS: Furosemide 40 MG/4 ML Vial IV (09:45)
[2023-12-09] MEDS: Aspirin E.C. 81 MG Tablet PO (09:45)
[2023-12-09] MEDS: Sertraline 100 MG Tablet PO (09:46)
[2023-12-09] MEDS: Clopidogrel Bisulfate 75 MG Tablet PO (09:46)
[2023-12-09 10:01] LABS: Absolute Lymphocyte Count 0.81 X10^3/uL (0.83-4.51); Absolute Neutrophil Count 11.1 X10^3/uL (2.0-7.7); Basophil# 0.01 X10^3/uL; Basophil% 0.1 % (0-1); Hematocrit 49.3 % (40-54); Hemoglobin 15.5 g/dL (13.0-16.5); Lymphocyte # 0.81 X10^3/ul (0.83-4.51); Lymphocyte % 6.6 % (19-41); Mean Corp Hgb Conc 31.4 g/dL (32-36); Mean Corpuscular Hgb 29.1 pg (27.0-32.0); Mean Corpuscular Volume 92.7 fL (80-94); Mean Platelet Vol. 10.5 fl (6.2-12.0); Monocyte# 0.34 X10^3/uL; Monocyte% 2.8 % (0-10); NRBC Flagged by Analyzer 0 % (0-5); Neutrophil # 11.06 X10^3/uL (2.7-7.7); Platelet Count 166 K/mm3 (150-450); RBC Distribution Width CV 14.8 % (11.6-14.6); RBC Distribution Width SD 50.3 fl (35.1-43.9); Red Blood Count 5.32 M/mm3 (4.6-6.2); White Blood Count 12.3 K/mm3 (4.4-11.0)
[2023-12-09 10:27] LABS: Anion Gap 5 (5-15); BUN 63 mg/dL (7-18); Calcium,Total 9.5 mg/dL (8.5-10.1); Chloride 97 mmol/L (98-107); EST Glomerular Filtration Rate 33 mL/min (>60); Est Glom Filt Rate - Afr Amer 40 mL/min (>60); Estimated Creatinine Clearance 26.03 ml/min; Glucose 234 mg/dL (74-106); Potassium 4.1 mmol/L (3.5-5.1); Sodium Level 135 mmol/L (136-145)
[2023-12-09 11:57] LABS: Bedside Glucose 277 mg/dL (74-106)
--- NOTE | 2023-12-09 12:31 | PN_ITS ---
Subjective Subjective Patient seen and examined. He remains on high flow oxygen via AirVo. He denies any cough, chest pain, palpitations, dizziness, nausea, vomiting or any other symptoms. Review of systems is otherwise negative. He has remained hemodynamically stable. Objective Data Objective Data Vital Signs: Vital Signs Temp Pulse Resp BP Pulse Ox O2 Del Method O2 Flow Rate 97.7 F L 89 20 H 135/68 H 95 Airvo 50 12/09/23 09:27 12/09/23 09:27 12/09/23 09:27 12/09/23 09:27 12/09/23 09:27 12/09/23 09:37 12/09/23 09:37 FiO2 54 12/09/23 09:37 Oxygen Flow Rate (L/min) 50 Oxygen Delivery Method Airvo Weight: 149 lb 14.629 oz Body Mass Index (BMI) 24.9 Intake & Output: Intake and Output for Last 24 Hours 12/07/23 12/08/23 12/09/23 23:59 23:59 23:59 Intake Total 1682.10 / 1682.10 1080 / 1080 150 / 150 Output Total 3550 / 3550 1000 / 1000 350 / 350 Balance -1867.90 / -1867.90 80 / 80 -200 / -200 Lab / Micro Data 12/09/23 09:45 12/09/23 09:45 Labs: Laboratory Results - last 24 hr 12/08/23 16:50: POC Glucose 252 H 12/08/23 21:39: POC Glucose 291 H 12/08/23 23:12: POC Glucose 281 H 12/09/23 06:41: POC Glucose 203 H 12/09/23 09:45: WBC 12.3 H, RBC 5.32, Hgb 15.5, Hct 49.3, MCV 92.7, MCH 29.1, M CHC 31.4 L, RDW Std Deviation 50.3 H, RDW Coeff of Audi 14.8 H, Plt Count 166, MPV 10.5, Immature Gran % (Auto) 0.500, Neut % (Auto) 90.0 H, Lymph % (Auto) 6.6 L, [place] % (Auto) 2.8, Eos % (Auto) 0.0, Baso % (Auto) 0.1, Absolute Neuts (auto) 11.1 H, Absolute Lymphs (auto) 0.81 L, Nucleated RBC % 0, Sodium 135 L, Potassium 4.1, Chloride 97 L, Carbon Dioxide 33.0 H, Anion Gap 5, BUN 63 H, C reatinine 2.10 H, Estim Creat Clear Calc 26.03, Est GFR (MDRD) Af Amer 40 L, Est GFR (MDRD) Non-Af 33 L, BUN/Creatinine Ratio 30.0 H, Glucose 234 H, Calcium 9.5 12/09/23 11:39: POC Glucose 277 H Micro: Microbiology 12/07/23 10:49 Mucosa - Nasopharyngeal Respiratory Panel (PCR) - Final 12/07/23 10:49 Mucosa - Nasopharyngeal Coronavirus COVID-19 PCR - Final Physical Exam Const alert and oriented x3 Constitutional Narrative: on Airvo. General Appearance: cooperative HEENT normocephalic, head/scalp atraumatic, moist oral mucous membranes and oropharynx normal Eyes PERRL and EOMs intact bilaterally Eyes Narrative: No icterus. Glasses. Neck no lymphadenopathy, supple and no JVD Lymph Lymphatic: no lymphadenopathy noted and no lymphedema noted Resp normal respiratory effort and no use of accessory muscles Resp Narrative: Moderately diminished breath sounds bilaterally. Mild wheezes and few crackles bilaterally. On Airvo with oxygen flow rate of 50 L/min and FiO2 of 54%. Cardio regular rate, regular rhythm, S1 normal heart sound, S2 normal heart sound and no murmurs GI normal to inspection, nondistended, normoactive bowel sounds, soft to palpation, non-tender, non-distended and hepatosplenomegaly Extremity normal capillary refill, no clubbing, cyanosis or edema and no calf tenderness Extremity Narrative: Bilateral lower extremity edema General Extremity: no tenderness to palpation of joints or extremities Skin General Skin Exam: no breakdown Neuro CN's II-XII intact bilaterally, moves all extremities and no focal motor deficits Sensorium / Orientation: awake and alert Coordination / Balance: [id number] test normal Motor Exam: strength 5/5 throughout and general weakness Psych thought process normal, cooperative and affect normal Appearance: appropriate Assessment & Plan Assessment/Plan (1) CHF exacerbation: QUALIFIERS: Heart failure type: systolic Qualified Code(s): I 50.23 - Acute on chronic systolic (congestive) heart failure (2) Non-ST elevated myocardial infarction: PLAN: Plan #Acute hypoxic and hypercapnic respiratory failure due to acute heart failure with reduced EF * Now on Airvo and is on 50 L/min at FiO2 of 54%. * Chest x-ray showed bilateral pleural effusions and evidence of fluid overload. * 2D echo ordered showed EF of 20 to 25% and severe global hypokinesis of left ventricle ventricle with evidence of diastolic dysfunction and mildly dilated left ventricle. Now off IV Lasix drip and on IV lasix 40mg bid. * Breathing treatments with bronchodilators. Titrate oxygen to maintain saturation above 90%. * Cardiology on board. switched from lasix drip to IV lasix. * Pulmonology on board. * #Non-STEMI: * Initial troponin was elevated and trended up somewhat with peak of 192. * On aspirin as well as high intensity statin. * This may also be due to troponin leak from the respiratory failure as patient denies any chest pain. Cardiology on board. Await recs. * 2D echo as above * heparin drip discontinued * #Elevated bicarb: Bicarb today is down to 33. Will monitor closely. If bicarb continues to trend upwards, will have to hold diuresis to prevent contraction alkalosis #Type 2 diabetes mellitus: On Lantus and glipizide. Insulin sliding scale. Accu-Cheks ACHS. #Depression: On sertraline #Hyperlipidemia: On statin CAD: On aspirin, statin and Plavix #CKD stage IV: * Patient used to be on dialysis but this was Discontinued in April 2024 per nephrology. * Monitor kidney function. Creatinine is 2.10 today down from 2.33 on admission. His baseline seems to be around 3-3.4 DVT prophylaxis: Subcu heparin. Heparin drip discontinued per cardiology. CODE STATUS: Full code Charges/Coding Visit Charges Inpatient E&M: 19618 Subs Hosp L3
[2023-12-09 15:24] LABS: Bedside Glucose 244 mg/dL (74-106)
--- NOTE | 2023-12-09 18:40 | PN.CC_ITS ---
Objective Data Objective Data Vital Signs: Vital Signs Last response 3 Temperature 36.3 C L 12/09/23 15:11 Temperature Source Oral 12/09/23 15:11 Pulse Rate 78 12/09/23 15:11 Pulse Strength Weak (1+) 12/07/23 10:00 Respiratory Rate 16 12/09/23 15:11 Respiratory Effort Non-Labored 12/09/23 14:13 Respiratory Depth Normal 12/09/23 14:13 Respiratory Pattern Normal 12/09/23 14:13 Blood Pressure 105/59 L 12/09/23 15:11 Blood Pressure Mean 74 12/09/23 15:11 Blood Pressure Source Monitor 12/09/23 15:11 Blood Pressure Position Sitting 12/09/23 15:11 Blood Pressure Location Right Arm 12/09/23 15:11 Pulse Ox 99 12/09/23 15:11 Oxygen Delivery Method Airvo 12/09/23 15:11 Oxygen Flow Rate (L/min) 50 12/09/23 14:13 Fraction of Inspired Oxygen (FIO2) 53 12/09/23 15:11 I&O: I&O Last 24 Hours 3 12/08/23 12/09/23 12/09/23 23:59 11:59 23:59 Intake Total 1080 / 1080 150 / 670 520 / 670 Output Total 800 / 1000 350 / 700 350 / 700 Balance 280 / 80 -200 / -30 170 / -30 I&O: Total Stay 3 12/05/23 17:53 thru 12/09/23 12:00 Intake Total 4362.32 Output Total 7750 Balance -3387.68 Current Meds Ordered / Administered: Current meds ordered / Administered 3 Generic Name Dose Route Start Last Admin Trade Name Freq PRN Reason Stop Dose Admin Acetaminophen 650 mg 12/05/23 22:06 12/08/23 14:44 Acetaminophen 325 Mg Tablet PO 650 mg Q6H PRN PRN Administration Pain 1-10 Or Fever >100.7 Hydrocodone Bitart/Acetaminophen 1 tablet 12/05/23 22:49 12/09/23 06:48 Hydrocodone Bitartrate/Apap 5/325 Tablet PO 1 tablet Q8H PRN Administration PAIN 4-10 Albuterol Sulfate 2.5 mg 12/05/23 22:06 12/08/23 07:12 Albuterol 2.5 Mg/3 Ml Vial.Neb. INHALATION 2.5 mg Q2H PRN PRN Administration SOB &/OR WHEEZING Albuterol/Ipratropium 3 ml 12/05/23 22:15 12/09/23 12:49 Ipratropium/Albuterol Sulfate 3 Ml Ampul.Neb INHALATION 3 ml Q6HWA.RT DONA Administration Amlodipine Besylate 10 mg 12/06/23 10:00 12/09/23 09:45 Amlodipine 10 Mg Tablet PO 10 mg DAILY DONA Administration Protocol Aspirin 81 mg 12/06/23 08:00 12/09/23 09:45 Aspirin E.C. 81 Mg Tablet PO 81 mg DAILYCM DONA Administration Budesonide 0.5 mg 12/05/23 22:15 12/09/23 06:28 Budesonide Respules 0.5 Mg/2 Ml Ampul.Neb. INHALATION 0.5 mg Q12H.RT DONA Administration Calamine/Phenol 1 applic 12/06/23 06:00 12/09/23 14:07 Menthol/Lanolin/Calamine/Znox 113 Gm Tube TOPICAL 1 applic TID DONA Administration Protocol Carvedilol 3.125 mg 12/05/23 22:06 12/09/23 09:45 Carvedilol 3.125 Mg Tablet PO 3.125 mg BID DONA Administration Protocol Clopidogrel Bisulfate 75 mg 12/06/23 10:00 12/09/23 09:46 Clopidogrel Bisulfate 75 Mg Tablet PO 75 mg DAILY DONA Administration Furosemide 40 mg 12/08/23 10:00 12/09/23 09:45 Furosemide 40 Mg/4 Ml Vial IV 40 mg DAILY DONA Administration Protocol Gabapentin 400 mg 12/05/23 22:06 12/09/23 14:07 Gabapentin 400 Mg Capsule PO 400 mg TID DONA Administration Glipizide 5 mg 12/06/23 07:30 12/07/23 08:48 Glipizide 5 Mg Tablet PO Not Given BID@0730,1630 DONA Glucagon 1 mg 12/05/23 22:06 Glucagon 1 Mg/Ml Syringe IM X1 PRN HYPOGLYCEMIA Protocol Dextrose 250 mls @ 0 mls/hr 12/05/23 22:06 12/06/23 16:55 Dextrose 10%-Water IV Infused .Q0M PRN Infusion HYPOGLYCEMIA Protocol As Directed Insulin Glargine 50 unit 12/05/23 22:06 12/07/23 00:15 Insulin Glargine-Yfgn 100 Unit/Ml Pen SC Not Given QHS DONA Insulin Human Lispro 0 unit 12/06/23 07:00 12/09/23 15:13 Insulin Lispro 100 Unit/Ml Insuln.Pen SC 3 u TIDAC DONA Administration Protocol Methylprednisolone 40 mg 12/08/23 08:40 12/09/23 14:07 Methylprednisolone 40 Mg/Ml Vial IV 40 mg Q8 DONA Administration Ondansetron HCl 4 mg 12/05/23 22:06 Ondansetron 4 Mg/2 Ml Vial IV Q8H PRN PRN NAUSEA/VOMITING Rosuvastatin Calcium 40 mg 12/05/23 22:06 12/08/23 21:42 Rosuvastatin Calcium 40 Mg Tablet PO 40 mg QHS DONA Administration Sertraline HCl 100 mg 12/06/23 10:00 12/09/23 09:46 Sertraline 100 Mg Tablet PO 100 mg DAILY DONA Administration Sodium Chloride 10 - 40 ml 12/05/23 22:18 12/09/23 14:07 0.9% Saline Lock 10 Ml Syringe IV 10 ml UD PRN Administration SALINE FLUSH Lab / Micro Data 12/09/23 09:45 12/09/23 09:45 Labs: Laboratory Results - last 24 hr 12/08/23 21:39: POC Glucose 291 H 12/08/23 23:12: POC Glucose 281 H 12/09/23 06:41: POC Glucose 203 H 12/09/23 09:45: WBC 12.3 H, RBC 5.32, Hgb 15.5, Hct 49.3, MCV 92.7, MCH 29.1, M CHC 31.4 L, RDW Std Deviation 50.3 H, RDW Coeff of Audi 14.8 H, Plt Count 166, MPV 10.5, Immature Gran % (Auto) 0.500, Neut % (Auto) 90.0 H, Lymph % (Auto) 6.6 L, [place] % (Auto) 2.8, Eos % (Auto) 0.0, Baso % (Auto) 0.1, Absolute Neuts (auto) 11.1 H, Absolute Lymphs (auto) 0.81 L, Nucleated RBC % 0, Sodium 135 L, Potassium 4.1, Chloride 97 L, Carbon Dioxide 33.0 H, Anion Gap 5, BUN 63 H, C reatinine 2.10 H, Estim Creat Clear Calc 26.03, Est GFR (MDRD) Af Amer 40 L, Est GFR (MDRD) Non-Af 33 L, BUN/Creatinine Ratio 30.0 H, Glucose 234 H, Calcium 9.5 12/09/23 11:39: POC Glucose 277 H 12/09/23 15:05: POC Glucose 244 H Assessment and Plan . Assessment and plan: Patient seen and examined Chart and data reviewed Elderly man w/ chronic CHF, reduced LVSF, admitted w/ dyspnea d/t decompensated CHF. He is breathing O2 via HHFNC - SpO2 98% NAD at rest Cumulative I/O (-) w/ furosemide Looks to have significant CKD as well EXAM GEN NAD HEENT o/p clear NECK JVD COR RRR CHEST basilar crackles ABD soft EXT minimal edema RAMIRO NF A/P 1. Dyspnea/hypoxemia, d/t decompensated CHF 2. CKD 3. CMP w/ severely reduced LVSF 4. Suspected underlying COPD -supplemental O2 - should be able to transition to simple N/C -loop diuretics -continue inhaled BD -short course steroids -added sq LMWH for VTE ppx The entirety of this encounter was done via Telemedicine
[2023-12-09] MEDS: ROSUVASTATIN CALCIUM 40 MG TABLET PO (21:14)
[2023-12-09 22:35] LABS: Bedside Glucose 315 mg/dL (74-106)
[2023-12-10] VITALS (12 sets, daily range): BP systolic 91–137; BP diastolic 50–70; PULSE 78–90; RESP 16–24; TEMP 36.1–36.7; O2SAT 88–98
[2023-12-10 05:39] LABS: Absolute Lymphocyte Count 0.85 X10^3/uL (0.83-4.51); Absolute Neutrophil Count 9.4 X10^3/uL (2.0-7.7); Basophil# 0.01 X10^3/uL; Basophil% 0.1 % (0-1); Hematocrit 43.6 % (40-54); Hemoglobin 13.6 g/dL (13.0-16.5); Lymphocyte # 0.85 X10^3/ul (0.83-4.51); Mean Corp Hgb Conc 31.2 g/dL (32-36); Mean Corpuscular Hgb 29.1 pg (27.0-32.0); Mean Corpuscular Volume 93.4 fL (80-94); Mean Platelet Vol. 11.5 fl (6.2-12.0); Monocyte# 0.39 X10^3/uL; Monocyte% 3.7 % (0-10); NRBC Flagged by Analyzer 0 % (0-5); Neutrophil # 9.35 X10^3/uL (2.7-7.7); Neutrophil % 87.6 % (47-70); Platelet Count 161 K/mm3 (150-450); RBC Distribution Width CV 14.7 % (11.6-14.6); RBC Distribution Width SD 50.3 fl (35.1-43.9); Red Blood Count 4.67 M/mm3 (4.6-6.2); White Blood Count 10.7 K/mm3 (4.4-11.0)
[2023-12-10 06:09] LABS: Anion Gap 7 (5-15); BUN 75 mg/dL (7-18); BUN/Creat Ratio 36.6 RATIO (10-20); Calcium,Total 9.2 mg/dL (8.5-10.1); Chloride 96 mmol/L (98-107); Creatinine, Serum 2.05 mg/dL (0.70-1.30); EST Glomerular Filtration Rate 34 mL/min (>60); Est Glom Filt Rate - Afr Amer 41 mL/min (>60); Estimated Creatinine Clearance 26.67 ml/min; Glucose 252 mg/dL (74-106); Potassium 4.1 mmol/L (3.5-5.1); Sodium Level 136 mmol/L (136-145)
[2023-12-10] MEDS: Ipratropium/Albuterol Sulfate 3 ML AMPUL.NEB INHALATION ×3 (06:23→18:35)
[2023-12-10] MEDS: Budesonide Respules 0.5 MG/2 ML AMPUL.NEB. INHALATION ×2 (06:23→18:35)
[2023-12-10] MEDS: Insulin Lispro 100 UNIT/ML INSULN.PEN SC ×4 (06:27→20:46)
[2023-12-10] MEDS: Gabapentin 400 MG Capsule PO ×3 (06:27→20:45)
[2023-12-10 06:39] LABS: Bedside Glucose 246 mg/dL (74-106)
[2023-12-10] MEDS: Aspirin E.C. 81 MG Tablet PO (09:02)
[2023-12-10] MEDS: Clopidogrel Bisulfate 75 MG Tablet PO (09:03)
[2023-12-10] MEDS: Sertraline 100 MG Tablet PO (09:03)
[2023-12-10] MEDS: Carvedilol 3.125 MG TABLET PO ×2 (09:03→20:45)
[2023-12-10] MEDS: Furosemide 40 MG/4 ML Vial IV ×2 (09:03→18:35)
[2023-12-10] MEDS: Enoxaparin 30 MG/0.3 ML Syringe SC (09:05)
[2023-12-10] MEDS: 0.9% Saline Lock 10 ML Syringe IV ×3 (09:06→20:46)
[2023-12-10] MEDS: amLODIPine 10 MG Tablet PO (09:09)
[2023-12-10] MEDS: HYDROcodone Bitartrate/Apap 5/325 Tablet PO ×2 (09:25→20:45)
--- NOTE | 2023-12-10 10:32 | PN.HOSP_ITS ---
Reason for Visit Reason for Visit: Diagnoses Non-ST elevation (NSTEMI) myocardial infarction (12/05/23) Acute on chronic systolic (congestive) heart failure (12/05/23) Heart failure, unspecified (12/05/23) Acute respiratory failure with hypoxia (12/05/23) Acute respiratory failure with hypercapnia (12/05/23) Chronic kidney disease, unspecified (12/05/23) Objective Data Objective Data Vital Signs: Vital Signs Temp Pulse Resp BP Pulse Ox O2 Del Method O2 Flow Rate 98.1 F 85 16 113/50 L 97 Airvo 50 12/10/23 09:36 12/10/23 09:36 12/10/23 09:36 12/10/23 09:36 12/10/23 09:36 12/10/23 09:36 12/10/23 09:36 FiO2 55 12/10/23 09:36 Oxygen Flow Rate (L/min) 50 Oxygen Delivery Method Airvo Weight: 149 lb 14.629 oz Body Mass Index (BMI) 24.9 Intake & Output: Intake and Output for Last 24 Hours 12/08/23 12/09/23 12/10/23 23:59 23:59 23:59 Intake Total 1080 / 1080 995 / 1235 390 / 390 Output Total 1000 / 1000 820 / 1020 600 / 600 Balance 80 / 80 175 / 215 -210 / -210 Lab / Micro Data 12/10/23 04:05 12/10/23 04:05 Labs: Laboratory Results - last 24 hr 12/09/23 11:39: POC Glucose 277 H 12/09/23 15:05: POC Glucose 244 H 12/09/23 21:12: POC Glucose 315 H 12/10/23 04:05: WBC 10.7, RBC 4.67, Hgb 13.6, Hct 43.6, MCV 93.4, MCH 29.1, MCHC 31.2 L, RDW Std Deviation 50.3 H, RDW Coeff of Audi 14.7 H, Plt Count 161, MPV 11.5, Immature Gran % (Auto) 0.600, Neut % (Auto) 87.6 H, Lymph % (Auto) 8.0 L, [place] % (Auto) 3.7, Eos % (Auto) 0.0, Baso % (Auto) 0.1, Absolute Neuts (auto) 9.4 H, Absolute Lymphs (auto) 0.85, Nucleated RBC % 0, Sodium 136, Potassium 4.1, Chloride 96 L, Carbon Dioxide 33.0 H, Anion Gap 7, BUN 75 H, Creatinine 2.05 H, Estim Creat Clear Calc 26.67, Est GFR (MDRD) Af Amer 41 L, Est GFR (MDRD) Non-Af 34 L, BUN/Creatinine Ratio 36.6 H, Glucose 252 H, Calcium 9.2 12/10/23 06:21: POC Glucose 246 H Micro: Microbiology 12/07/23 10:49 Mucosa - Nasopharyngeal Respiratory Panel (PCR) - Final 12/07/23 10:49 Mucosa - Nasopharyngeal Coronavirus COVID-19 PCR - Final Physical Exam Narrative Patient having cough no wheezing. Seen and examined General: Alert, Oriented x3, Cooperative HEENT: Atraumatic, PERRLA, EOMI, Normocephalic Oral: No Gingival or Mucosal Lesions/ Ulcerations Neck: Supple, No JVD, Negative Carotid Bruits Chest wall/Lungs: Air entry diminished in bilateral lungs. Mild wheezing and crepitations bilaterally. On Airvo, 55% FiO2 Cardiovascular: Regular rate, Regular Rhythm, Normal S1, Normal S2, No M/G/R Abdomen: Bowel Sounds Present, Soft, Non Tender, Non-Distended : No dysuria. No renal angle tenderness. No suprapubic tenderness. Extremities: Bilateral lower extremity edema. Capillary Refill Less than 3 Seconds Skin: No rashes, No breakdown Musculoskeletal: No Tenderness to Palpation of Joints or Extremities Neurological: Cranial nerves II-XII grossly intact, DTR 2+/4. No acute focal neurological deficit. Psych/Mental Status: Flat affect Assessment & Plan Assessment/Plan (1) CHF exacerbation: QUALIFIERS: Heart failure type: systolic Qualified Code(s): I 50.23 - Acute on chronic systolic (congestive) heart failure (2) Non-ST elevated myocardial infarction: PLAN: Plan #Acute hypoxic and hypercapnic respiratory failure due to acute heart failure with reduced EF * Now on Airvo and is on 50 L/min at FiO2 of 54%. * Chest x-ray showed bilateral pleural effusions and evidence of fluid overload. * 2D echo ordered showed EF of 20 to 25% and severe global hypokinesis of left ventricle ventricle with evidence of diastolic dysfunction and mildly dilated left ventricle. Now off IV Lasix drip and on IV lasix 40mg bid. * Breathing treatments with bronchodilators. Titrate oxygen to maintain saturation above 90%. * Cardiology on board. switched from lasix drip to IV lasix. * Pulmonology on board. 12/09: Lasix increased to 40 every 12 hourly. Creatinine around 2.05. Bilateral leg swelling. #Non-STEMI: * Initial troponin was elevated and trended up somewhat with peak of 192. * On aspirin as well as high intensity statin. * This may also be due to troponin leak from the respiratory failure as patient denies any chest pain. Cardiology on board. Await recs. * 2D echo as above * heparin drip discontinued #Elevated bicarb: Bicarb today is down to 33. Will monitor closely. If bicarb continues to trend upwards, will have to hold diuresis to prevent contraction alkalosis #Type 2 diabetes mellitus: On Lantus and glipizide. Insulin sliding scale. Accu-Cheks ACHS. 12/09: Glucose level is high, 250-350. A1c 7.3. Started on scheduled Humalog insulin. #Depression: On sertraline #Hyperlipidemia: On statin CAD: On aspirin, statin and Plavix #CKD stage IV: * Patient used to be on dialysis but this was Discontinued in April 2024 per nephrology. * Monitor kidney function. Creatinine is 2.10 today down from 2.33 on admission. His baseline seems to be around 3-3.4 DVT prophylaxis: Subcu heparin. Heparin drip discontinued per cardiology. CODE STATUS: Full code Charges/Coding Visit Charges Inpatient E&M: 17207 Subs Hosp L2
[2023-12-10 13:21] LABS: Bedside Glucose 265 mg/dL (74-106)
[2023-12-10] MEDS: Menthol/Lanolin/Calamine/Znox 113 GM Tube 1 APPLIC TOPICAL ×2 (14:48→20:44)
[2023-12-10 17:27] LABS: Bedside Glucose 255 mg/dL (74-106)
[2023-12-10] MEDS: Dext 5%-0.45% NS 1,000 ML 30 ML IV (18:35)
--- NOTE | 2023-12-10 20:21 | PN.CC_ITS ---
Objective Data Objective Data Vital Signs: Vital Signs Last response 3 Temperature 36.2 C L 12/10/23 15:30 Temperature Source Temporal 12/10/23 15:30 Pulse Rate 80 12/10/23 18:35 Pulse Strength Weak (1+) 12/09/23 21:10 Respiratory Rate 24 H 12/10/23 18:35 Respiratory Effort Normal, Non-Labored 12/10/23 14:56 Respiratory Depth Normal 12/10/23 14:56 Respiratory Pattern Tachypnea 12/10/23 18:35 Blood Pressure 108/53 L 12/10/23 18:33 Blood Pressure Mean 71 12/10/23 18:33 Blood Pressure Source Monitor 12/10/23 15:30 Blood Pressure Position Semi-Fowlers 12/10/23 15:30 Blood Pressure Location Right Arm 12/10/23 15:30 Pulse Ox 94 12/10/23 18:35 Oxygen Delivery Method Airvo 12/10/23 15:30 Oxygen Flow Rate (L/min) 50 12/10/23 09:36 Fraction of Inspired Oxygen (FIO2) 52 12/10/23 18:35 I&O: I&O Last 24 Hours 3 12/09/23 12/10/23 12/10/23 23:59 11:59 23:59 Intake Total 845 / 1235 710 / 1190 480 / 1190 Output Total 470 / 1020 850 / 1200 350 / 1200 Balance 375 / 215 -140 / -10 130 / -10 I&O: Total Stay 3 12/05/23 17:53 thru 12/10/23 17:09 Intake Total 5877.32 Output Total 9070 Balance -3192.68 Current Meds Ordered / Administered: Current meds ordered / Administered 3 Generic Name Dose Route Start Last Admin Trade Name Freq PRN Reason Stop Dose Admin Acetaminophen 650 mg 12/05/23 22:06 12/08/23 14:44 Acetaminophen 325 Mg Tablet PO 650 mg Q6H PRN PRN Administration Pain 1-10 Or Fever >100.7 Hydrocodone Bitart/Acetaminophen 1 tablet 12/05/23 22:49 12/10/23 09:25 Hydrocodone Bitartrate/Apap 5/325 Tablet PO 1 tablet Q8H PRN Administration PAIN 4-10 Albuterol Sulfate 2.5 mg 12/05/23 22:06 12/08/23 07:12 Albuterol 2.5 Mg/3 Ml Vial.Neb. INHALATION 2.5 mg Q2H PRN PRN Administration SOB &/OR WHEEZING Albuterol/Ipratropium 3 ml 12/05/23 22:15 12/10/23 18:35 Ipratropium/Albuterol Sulfate 3 Ml Ampul.Neb INHALATION 3 ml Q6HWA.RT DONA Administration Amlodipine Besylate 10 mg 12/06/23 10:00 12/10/23 09:09 Amlodipine 10 Mg Tablet PO 10 mg DAILY DONA Administration Protocol Aspirin 81 mg 12/06/23 08:00 12/10/23 09:02 Aspirin E.C. 81 Mg Tablet PO 81 mg DAILYCM DONA Administration Budesonide 0.5 mg 12/05/23 22:15 12/10/23 18:35 Budesonide Respules 0.5 Mg/2 Ml Ampul.Neb. INHALATION 0.5 mg Q12H.RT DONA Administration Calamine/Phenol 1 applic 12/06/23 06:00 12/10/23 14:48 Menthol/Lanolin/Calamine/Znox 113 Gm Tube TOPICAL 1 applic TID DONA Administration Protocol Carvedilol 3.125 mg 12/05/23 22:06 12/10/23 09:03 Carvedilol 3.125 Mg Tablet PO 3.125 mg BID DONA Administration Protocol Clopidogrel Bisulfate 75 mg 12/06/23 10:00 12/10/23 09:03 Clopidogrel Bisulfate 75 Mg Tablet PO 75 mg DAILY DONA Administration Enoxaparin Sodium 30 mg 12/10/23 10:00 12/10/23 09:05 Enoxaparin 30 Mg/0.3 Ml Syringe SC 30 mg DAILY DONA Administration Furosemide 40 mg 12/10/23 17:00 12/10/23 18:35 Furosemide 40 Mg/4 Ml Vial IV 40 mg BIDBRS DONA Administration Protocol Gabapentin 400 mg 12/05/23 22:06 12/10/23 14:49 Gabapentin 400 Mg Capsule PO 400 mg TID DONA Administration Glipizide 5 mg 12/06/23 07:30 12/07/23 08:48 Glipizide 5 Mg Tablet PO Not Given BID@0730,1630 DONA Glucagon 1 mg 12/05/23 22:06 Glucagon 1 Mg/Ml Syringe IM X1 PRN HYPOGLYCEMIA Protocol Dextrose 250 mls @ 0 mls/hr 12/05/23 22:06 12/06/23 16:55 Dextrose 10%-Water IV Infused .Q0M PRN Infusion HYPOGLYCEMIA Protocol As Directed Dextrose/Sodium Chloride 1,000 mls @ 30 mls/hr 12/10/23 18:10 12/10/23 18:35 IV 30 mls/hr .[id number] DONA Administration Insulin Glargine 10 unit 12/10/23 22:00 Insulin Glargine-Yfgn 100 Unit/Ml Pen SC QHS DONA Insulin Human Lispro 0 unit 12/09/23 22:00 12/10/23 18:35 Insulin Lispro 100 Unit/Ml Insuln.Pen SC 3 unit ACHS DONA Administration Protocol Methylprednisolone 40 mg 12/08/23 08:40 12/10/23 14:49 Methylprednisolone 40 Mg/Ml Vial IV 40 mg Q8 DONA Administration Ondansetron HCl 4 mg 12/05/23 22:06 Ondansetron 4 Mg/2 Ml Vial IV Q8H PRN PRN NAUSEA/VOMITING Rosuvastatin Calcium 40 mg 12/05/23 22:06 12/09/23 21:14 Rosuvastatin Calcium 40 Mg Tablet PO 40 mg QHS DONA Administration Sertraline HCl 100 mg 12/06/23 10:00 12/10/23 09:03 Sertraline 100 Mg Tablet PO 100 mg DAILY DONA Administration Sodium Chloride 10 - 40 ml 12/05/23 22:18 12/10/23 14:49 0.9% Saline Lock 10 Ml Syringe IV 10 ml UD PRN Administration SALINE FLUSH Lab / Micro Data 12/10/23 04:05 12/10/23 04:05 Labs: Laboratory Results - last 24 hr 12/09/23 21:12: POC Glucose 315 H 12/10/23 04:05: WBC 10.7, RBC 4.67, Hgb 13.6, Hct 43.6, MCV 93.4, MCH 29.1, MCHC 31.2 L, RDW Std Deviation 50.3 H, RDW Coeff of Audi 14.7 H, Plt Count 161, MPV 11.5, Immature Gran % (Auto) 0.600, Neut % (Auto) 87.6 H, Lymph % (Auto) 8.0 L, [place] % (Auto) 3.7, Eos % (Auto) 0.0, Baso % (Auto) 0.1, Absolute Neuts (auto) 9.4 H, Absolute Lymphs (auto) 0.85, Nucleated RBC % 0, Sodium 136, Potassium 4.1, Chloride 96 L, Carbon Dioxide 33.0 H, Anion Gap 7, BUN 75 H, Creatinine 2.05 H, Estim Creat Clear Calc 26.67, Est GFR (MDRD) Af Amer 41 L, Est GFR (MDRD) Non-Af 34 L, BUN/Creatinine Ratio 36.6 H, Glucose 252 H, Calcium 9.2 12/10/23 06:21: POC Glucose 246 H 12/10/23 10:57: POC Glucose 265 H 12/10/23 17:07: POC Glucose 255 H Assessment and Plan . Assessment and plan: Patient seen and examined Chart and data reviewed Elderly man w/ chronic CHF, reduced LVSF, admitted w/ dyspnea d/t decompensated CHF. He is breathing O2 via HHFNC - SpO2 98% NAD at rest Cumulative I/O (-) w/ furosemide, but less UOP over past 48 hours Looks to have significant CKD as well EXAM GEN NAD - O2 HHFNC HEENT o/p clear NECK JVD COR RRR CHEST basilar crackles ABD soft EXT modest edema RAMIRO NF A/P 1. Dyspnea/hypoxemia, d/t decompensated CHF 2. CKD 3. CMP w/ severely reduced LVSF 4. Suspected underlying COPD -supplemental O2 - hopefully transition to simple N/C soon -loop diuretics - increase dose today - needs (-) I/O daily -add diamox for any contraction alkalosis -repeat BNP in am -continue inhaled BD -short course steroids - can probably stop soon -added sq LMWH for VTE ppx The entirety of this encounter was done via Telemedicine
[2023-12-10] MEDS: ROSUVASTATIN CALCIUM 40 MG TABLET PO (20:45)
[2023-12-10] MEDS: Insulin Glargine-YFGN 100 UNIT/ML Pen 10 UNIT SC (20:45)
[2023-12-10 21:16] LABS: Bedside Glucose 227 mg/dL (74-106)
[2023-12-11] VITALS (15 sets, daily range): BP systolic 108–135; BP diastolic 43–62; PULSE 73–90; RESP 18–20; TEMP 36.4–36.6; O2SAT 90–98
[2023-12-11 05:58] LABS: Absolute Lymphocyte Count 1.04 X10^3/uL (0.83-4.51); Basophil# 0.01 X10^3/uL; Basophil% 0.1 % (0-1); Hematocrit 47.1 % (40-54); Hemoglobin 14.8 g/dL (13.0-16.5); Lymphocyte # 1.04 X10^3/ul (0.83-4.51); Lymphocyte % 9.6 % (19-41); Mean Corp Hgb Conc 31.4 g/dL (32-36); Mean Corpuscular Hgb 29.2 pg (27.0-32.0); Mean Corpuscular Volume 93.1 fL (80-94); Mean Platelet Vol. 10.9 fl (6.2-12.0); Monocyte% 6.5 % (0-10); NRBC Flagged by Analyzer 0 % (0-5); Neutrophil # 9.04 X10^3/uL (2.7-7.7); Neutrophil % 83.3 % (47-70); Platelet Count 177 K/mm3 (150-450); RBC Distribution Width CV 14.8 % (11.6-14.6); RBC Distribution Width SD 50.6 fl (35.1-43.9); Red Blood Count 5.06 M/mm3 (4.6-6.2); White Blood Count 10.8 K/mm3 (4.4-11.0)
[2023-12-11 06:21] LABS: Anion Gap 7 (5-15); BUN 78 mg/dL (7-18); BUN/Creat Ratio 41.7 RATIO (10-20); Calcium,Total 9.1 mg/dL (8.5-10.1); Chloride 96 mmol/L (98-107); Creatinine, Serum 1.87 mg/dL (0.70-1.30); EST Glomerular Filtration Rate 37 mL/min (>60); Est Glom Filt Rate - Afr Amer 45 mL/min (>60); Estimated Creatinine Clearance 29.23 ml/min; Glucose 255 mg/dL (74-106); Potassium 4.3 mmol/L (3.5-5.1); Sodium Level 134 mmol/L (136-145)
[2023-12-11] MEDS: Insulin Lispro 100 UNIT/ML INSULN.PEN SC ×4 (06:46→21:52)
[2023-12-11] MEDS: Gabapentin 400 MG Capsule PO ×3 (06:47→22:01)
[2023-12-11] MEDS: Menthol/Lanolin/Calamine/Znox 113 GM Tube 1 APPLIC TOPICAL ×3 (06:47→21:51)
[2023-12-11] MEDS: HYDROcodone Bitartrate/Apap 5/325 Tablet PO ×2 (06:51→15:04)
[2023-12-11 07:14] LABS: Bedside Glucose 239 mg/dL (74-106)
[2023-12-11] MEDS: Ipratropium/Albuterol Sulfate 3 ML AMPUL.NEB INHALATION ×3 (07:15→19:23)
[2023-12-11] MEDS: Budesonide Respules 0.5 MG/2 ML AMPUL.NEB. INHALATION ×2 (07:15→19:24)
[2023-12-11 08:00] LABS: BNP,B-Type NATRIURETIC PEPTIDE 131.4 pg/mL (0-100)
[2023-12-11] MEDS: Acetaminophen 325 MG Tablet 650 MG PO (08:54)
[2023-12-11] MEDS: Clopidogrel Bisulfate 75 MG Tablet PO (08:55)
[2023-12-11] MEDS: Sertraline 100 MG Tablet PO (08:56)
[2023-12-11] MEDS: Aspirin E.C. 81 MG Tablet PO (08:56)
[2023-12-11] MEDS: Carvedilol 3.125 MG TABLET PO ×2 (08:56→22:01)
[2023-12-11] MEDS: amLODIPine 10 MG Tablet PO (08:56)
[2023-12-11] MEDS: Furosemide 40 MG/4 ML Vial IV ×2 (08:58→16:40)
[2023-12-11] MEDS: Enoxaparin 30 MG/0.3 ML Syringe SC (09:01)
--- NOTE | 2023-12-11 10:49 | CASEMGMT ---
Discharge Planning CC updated that pt remains on Airvo and should discharge in the next day or two. Rebecca Sloan DC Planning Asst.
--- NOTE | 2023-12-11 12:59 | PN.CC_ITS ---
Objective Data Objective Data Vital Signs: Vital Signs Last response 3 Temperature 36.4 C L 12/11/23 09:00 Temperature Source Oral 12/11/23 09:00 Pulse Rate 74 12/11/23 09:51 Pulse Strength Weak (1+) 12/11/23 07:46 Respiratory Rate 20 H 12/11/23 09:51 Respiratory Effort Normal, Non-Labored 12/11/23 12:30 Respiratory Depth Normal 12/11/23 12:30 Respiratory Pattern Normal 12/11/23 12:30 Blood Pressure 108/53 L 12/11/23 09:00 Blood Pressure Mean 71 12/11/23 09:00 Blood Pressure Source Monitor 12/11/23 09:00 Blood Pressure Position Sitting 12/11/23 09:00 Blood Pressure Location Right Arm 12/11/23 09:00 Pulse Ox 94 12/11/23 09:58 Oxygen Delivery Method Airvo 12/11/23 12:30 Oxygen Flow Rate (L/min) 50 12/11/23 09:58 Fraction of Inspired Oxygen (FIO2) 50 12/11/23 09:51 I&O: I&O Last 24 Hours 3 12/10/23 12/11/23 12/11/23 23:59 11:59 23:59 Intake Total 480 / 1190 Output Total 350 / 2200 1375 / 1575 200 / 1575 Balance 130 / -1010 -1375 / -1575 -200 / -1575 I&O: Total Stay 3 12/05/23 17:53 thru 12/11/23 12:00 Intake Total 5877.32 Output Total 13861 Balance -4767.68 Current Meds Ordered / Administered: Current meds ordered / Administered 3 Generic Name Dose Route Start Last Admin Trade Name Freq PRN Reason Stop Dose Admin Acetaminophen 650 mg 12/05/23 22:06 12/11/23 08:54 Acetaminophen 325 Mg Tablet PO 650 mg Q6H PRN PRN Administration Pain 1-10 Or Fever >100.7 Hydrocodone Bitart/Acetaminophen 1 tablet 12/05/23 22:49 12/11/23 06:51 Hydrocodone Bitartrate/Apap 5/325 Tablet PO 1 tablet Q8H PRN Administration PAIN 4-10 Albuterol Sulfate 2.5 mg 12/05/23 22:06 12/08/23 07:12 Albuterol 2.5 Mg/3 Ml Vial.Neb. INHALATION 2.5 mg Q2H PRN PRN Administration SOB &/OR WHEEZING Albuterol/Ipratropium 3 ml 12/05/23 22:15 12/11/23 07:15 Ipratropium/Albuterol Sulfate 3 Ml Ampul.Neb INHALATION 3 ml Q6HWA.RT DONA Administration Amlodipine Besylate 10 mg 12/06/23 10:00 12/11/23 08:56 Amlodipine 10 Mg Tablet PO 10 mg DAILY DONA Administration Protocol Aspirin 81 mg 12/06/23 08:00 12/11/23 08:56 Aspirin E.C. 81 Mg Tablet PO 81 mg DAILYCM DONA Administration Budesonide 0.5 mg 12/05/23 22:15 12/11/23 07:15 Budesonide Respules 0.5 Mg/2 Ml Ampul.Neb. INHALATION 0.5 mg Q12H.RT DONA Administration Calamine/Phenol 1 applic 12/06/23 06:00 12/11/23 06:47 Menthol/Lanolin/Calamine/Znox 113 Gm Tube TOPICAL 1 applic TID DONA Administration Protocol Carvedilol 3.125 mg 12/05/23 22:06 12/11/23 08:56 Carvedilol 3.125 Mg Tablet PO 3.125 mg BID DONA Administration Protocol Clopidogrel Bisulfate 75 mg 12/06/23 10:00 12/11/23 08:55 Clopidogrel Bisulfate 75 Mg Tablet PO 75 mg DAILY DONA Administration Enoxaparin Sodium 30 mg 12/10/23 10:00 12/11/23 09:01 Enoxaparin 30 Mg/0.3 Ml Syringe SC 30 mg DAILY DONA Administration Furosemide 40 mg 12/10/23 17:00 12/11/23 08:58 Furosemide 40 Mg/4 Ml Vial IV 40 mg BIDBRS DONA Administration Protocol Gabapentin 400 mg 12/05/23 22:06 12/11/23 06:47 Gabapentin 400 Mg Capsule PO 400 mg TID DONA Administration Glipizide 5 mg 12/06/23 07:30 12/07/23 08:48 Glipizide 5 Mg Tablet PO Not Given BID@0730,1630 DONA Glucagon 1 mg 12/05/23 22:06 Glucagon 1 Mg/Ml Syringe IM X1 PRN HYPOGLYCEMIA Protocol Dextrose 250 mls @ 0 mls/hr 12/05/23 22:06 12/06/23 16:55 Dextrose 10%-Water IV Infused .Q0M PRN Infusion HYPOGLYCEMIA Protocol As Directed Dextrose/Sodium Chloride 1,000 mls @ 30 mls/hr 12/10/23 18:10 12/10/23 18:35 IV 30 mls/hr .[id number] DONA Administration Insulin Glargine 10 unit 12/10/23 22:00 12/10/23 20:45 Insulin Glargine-Yfgn 100 Unit/Ml Pen SC 10 unit QHS DONA Administration Insulin Human Lispro 0 unit 12/09/23 22:00 12/11/23 12:09 Insulin Lispro 100 Unit/Ml Insuln.Pen SC 3 unit ACHS DONA Administration Protocol Nystatin 500,000 unit 12/11/23 12:45 Nystatin 500,000 Unit/5 Ml Udc PO 4X/DAY DONA Ondansetron HCl 4 mg 12/05/23 22:06 Ondansetron 4 Mg/2 Ml Vial IV Q8H PRN PRN NAUSEA/VOMITING Rosuvastatin Calcium 40 mg 12/05/23 22:06 12/10/23 20:45 Rosuvastatin Calcium 40 Mg Tablet PO 40 mg QHS DONA Administration Sertraline HCl 100 mg 12/06/23 10:00 12/11/23 08:56 Sertraline 100 Mg Tablet PO 100 mg DAILY DONA Administration Sodium Chloride 10 - 40 ml 12/05/23 22:18 12/10/23 20:46 0.9% Saline Lock 10 Ml Syringe IV 10 ml UD PRN Administration SALINE FLUSH Lab / Micro Data 12/11/23 05:10 12/11/23 05:10 Labs: Laboratory Results - last 24 hr 12/10/23 10:57: POC Glucose 265 H 12/10/23 17:07: POC Glucose 255 H 12/10/23 20:40: POC Glucose 227 H 12/11/23 05:10: WBC 10.8, RBC 5.06, Hgb 14.8, Hct 47.1, MCV 93.1, MCH 29.2, MCHC 31.4 L, RDW Std Deviation 50.6 H, RDW Coeff of Audi 14.8 H, Plt Count 177, MPV 10.9, Immature Gran % (Auto) 0.500, Neut % (Auto) 83.3 H, Lymph % (Auto) 9.6 L, [place] % (Auto) 6.5, Eos % (Auto) 0.0, Baso % (Auto) 0.1, Absolute Neuts (auto) 9.0 H, Absolute Lymphs (auto) 1.04, Nucleated RBC % 0, Sodium 134 L, Potassium 4.3, Chloride 96 L, Carbon Dioxide 31.0, Anion Gap 7, BUN 78 H, Creatinine 1.87 H, Estim Creat Clear Calc 29.23, Est GFR (MDRD) Af Amer 45 L, Est GFR (MDRD) Non-Af 37 L, BUN/Creatinine Ratio 41.7 H, Glucose 255 H, Calcium 9.1, B- Natriuretic Peptide 131.4 H 12/11/23 06:43: POC Glucose 239 H Assessment and Plan . Assessment and plan: 1. Resp Failure: acute/hypoxemic. ? Chronic hypercapnea. At current working theory is 2/2 decompensated HF. CXR showed asymmetry on admit(L >>>> R infiltrates). Continue HHFNC. Wean FIO2 as tolerated. 2. CHF Exac: acute on chronic. Systolic. Diuresing but no dramatic change in CXR. Cr improving. Continue current diuretics. 3. COPD exac: Continue nebs. Change steroids to oral. Will need 2 week taper. 4. ? Pneumonia: Mild cough on admit. No other signs of infection. CXR on admit with asymmetry. Check CT. Also check serologies for atypical bacterial pathogens: Mycoplasma/Legionella. 5. FEN: oral diet 6. CKD: Cr improving. UOP excellent 7. PX: Chemical. Critical Care Time:50 minutes The entirety of this encounter was done via Telemedicine Physical Exam Narrative awake, NAD Pupils = o/p:clear No JVD CV: RRR Chest: diffuse end exp wheezing, good a/e, crackles onleft Abd: soft , nt, +bs Ext: no c/e/c Skin: no rashes Subjective Subjective chart reviewed. Pt stable. Continues on HHFNC at 45%/
--- NOTE | 2023-12-11 13:15 | CT_ITS ---
STUDY: CT CHEST WITHOUT CONTRAST REASON FOR EXAM: Male, 78 years old. Pneumonia RADIATION DOSAGE (If Supplied By Facility): CTDIvol = ( 14.47 ) mGy, DLP = ( 517.08 ) mGycm TECHNIQUE: Transaxial imaging was performed without the administration of intravenous contrast material. Multiplanar coronal and sagittal images were reformatted. Individualized dose optimization techniques were used for this CT. COMPARISON: Comparison is made with prior chest radiograph dated December 07, 2023. FINDINGS: CHEST Dense consolidation in the posterior aspect of the lingular segment of the left upper lobe with a small left pleural effusion. Mild increased markings at the right lung base suggestive of a possible scarring. There are calcifications of the coronary arteries. Enlarged mediastinal lymph nodes. There is narrowing of the left intermediate stem bronchus. A neoplastic process in the left hilar region with postobstructive pneumonitis should BE ruled out. Correlation with a PET scan is recommended. There is prominence of the pulmonary hilar arteries without peripheral pulmonary vascular congestion, suggesting pulmonary hypertension. There is atherosclerotic calcification of the aortic arch with tortuosity and elongation of the aortic arch and descending thoracic aorta. There are multi-level degenerative changes of the thoracic spine. Minimal loss of height of the superior endplate of a lower dorsal vertebrae. Pancreatic atrophy. CT/Chest without Contrast IMPRESSION: Mediastinal lymphadenopathy. Small left pleural effusion with dense consolidation in the posterior aspect of the lingular segment of the left upper lobe with narrowing of the intermediate stem bronchus Prominence of both pulmonary arteries suggestive of a pulmonary hypertension.. Left hilar mass with postobstructive pneumonitis should BE ruled out. Correlation with a PET scan is recommended. Electronically Signed: Randolph Joyce MD at 14:02 EDT ,
[2023-12-11] MEDS: NYSTATIN 500,000 UNIT/5 ML UDC 500000 UNIT PO ×3 (13:41→21:56)
--- NOTE | 2023-12-11 14:05 | SP.FEES_ITS ---
FEES Patient Information Date of Evaluation: 12/11/23 Time of Evaluation: 11:00 Diagnosis: PNA J18.9 Referring Physician: Roberth Stevens Staff Providing this Care/Treatment:: DENISE Direct Billable Minutes: 120 History: Past Medical History:: PMH: Bilateral hearing loss, Anxiety, Diabetes, Chronic pain, Kidney stones, Kidney disease, Former smoker, Sleep apnea, COPD, Chest pain, NC, HTN, DVT, Unable to walk, JOHN (See EMR for full PMH). The patient presented to [facility] ED 12/05/2023 with shortness of breath. Symptoms had been developing over the past few weeks, more short of breath, which peaked day of admission prompting EMS being called. Hypoxic (pulse ox 60s) and patient was placed on a nasal cannula, then ventimask, and brought to the ED. After work up in the ED, he was admitted to the hospital for management of CHF exacerbation and NSTEMI amongst other comorbidities. Patient was referred for ST consult due to concerns for aspiration 12/10/23. On 12/10/23, MOISTURE METER OPERATOR recommended NPO with plans for MBSS today to assess aspiration risk prior to diet advancement due to desaturation with trials of oral intake; however, patient is still on Airvo and can't be transferred to radiology. This MOISTURE METER OPERATOR recommended proceeding with FEES to objectively assess swallow function and aspiration risk. Consent for completing FEES was obtained from the patient prior to the assessment. Current Diet: Comment:: NPO Respiratory Status Observation:: Airvo, expiratory wheezes and rhonchi throughout lung sounds per most recent RN Shift Clinical Findings Vocal Quality: Observations:: Hoarse Cognition: Observations:: WFL Position During FEES: Position During FEES:: Upright Location: In Chair Fiberoptic Endoscope: Size: 3.4 mm Nare Used:: Right Comments: Scope was passed through the R nare without any difficuties or abnormalities Anatomical Findings: Anatomical Findings:: Oral and pharyngeal mucosa pink, moist with the exception of white plaque-like substance on the posterior portion of the patient's tongue concerning for oral thrush. MOISTURE METER OPERATOR informed physician of concern. Protrusion of R greater horn of the hyoid bone visible in the R oropharynx. Mild edema of the arytenoids. True vocal fold adduction slightly incomplete with adduction of ventricular folds during phonation tasks. Decreased pharyngeal contraction evident with pitch glides. Secretions: Description:: Thin, Clear and White Penetration-Aspiration Scale Penetration-Aspiration Scale Thin Liquids by Teaspoon Food/Drink Provided:: Water w/ green food coloring Swallow Onset Location:: Vallecula PAS Score: PAS Score *1 Visual Analysis of Swallowing Efficiency and Safety (VASES) after the swallow: Oropharynx and Hypopharynx VASES Comments:: 10% vallecula, <5% R and L Pyriform Sinuses Thin Liquids by Single Cup Food/Drink Provided:: Water w/ green food coloring Swallow Onset Location:: Vallecula PAS Score: PAS Score *5 Visual Analysis of Swallowing Efficiency and Safety (VASES) after the swallow: Oropharynx and Hypopharynx Comments:: 10% vallecula, <5% R aryepiglottic fold, <5% R and L Pyriform Sinuses Strategies Trialed:: Effortful swallow - Not effective. Additional Comments:: PAS of 5 with trial employing Effortful swallow. Other trials of thin via cup completed with PAS of 1. Thin Liquids by Single Straw Food/Drink Provided:: Water w/ green food coloring Swallow Onset Location:: Vallecula PAS Score: PAS Score *5 Visual Analysis of Swallowing Efficiency and Safety (VASES) after the swallow: Oropharynx and Hypopharynx Comments:: 10% vallecula, <5% R and L Pyriform Sinuses, <5% on true vocal folds Thin Liquids by Sequential Straw Food/Drink Provided:: Water w/ green food coloring Swallow Onset Location:: Pyriform Sinuses and Laryngeal Vestibule PAS Score: PAS Score *7 Visual Analysis of Swallowing Efficiency and Safety (VASES) after the swallow: Oropharynx, Hypopharynx, Laryngeal Vestibule, Vocal Folds and Subglottis Comments:: 10% hypopharynx, 30% R and L pyriforms, and 50% laryngeal vestibule. Strategies Trialed:: Patient had reflexive coughing and multiple swallows to eventually clear pharyngeal residues. Additional Comments:: First trial consumed via patient. He took first sip with rapid rate. Mildly Thick Liquids by Teaspoon Food/Drink Provided:: Mildly thick water w/ green food coloring Swallow Onset Location:: Tongue Base PAS Score: PAS Score *1 Visual Analysis of Swallowing Efficiency and Safety (VASES) after the swallow: Oropharynx and Hypopharynx Comments:: 10% vallecula, <5% R and L Pyriform Sinuses Mildly Thick Liquids by Single Cup Food/Drink Provided:: Mildly thick water w/ green food coloring Swallow Onset Location:: Pyriform Sinuses PAS Score: PAS Score *1 Visual Analysis of Swallowing Efficiency and Safety (VASES) after the swallow: Oropharynx and Hypopharynx Comments:: 10% vallecula, <5% R and L Pyriform Sinuses Diagnosis/Impressions Diagnosis: Mild-moderate oropharyngeal dysphagia R13.12 Impressions: The oral phase is primarily marked by... -Decreased bolus control most notable with sequential sips of thin liquids The pharyngeal phase is primarily marked by... -Decreased pharyngeal contraction with independent use of multiple swallows to clear pharyngeal residues as needed. -Decreased airway closure during the swallow with laryngeal penetration of thin liquids via straw and via cup w/ effortful swallow. Overt aspiration of sequential thin via straw. Recommendations Diet: Easy to Chew Textures and Thin Liquids Medication Administration:: Whole in puree Comments: Oral care after meals. Ok for water at bedside between meals. For meals, ensure SpO2 remains in the 90s. Compensatory Strategies: Small Bites, Small Sips, No Straws, Slow Rate, Multiple Swallows, Sitting upright and Remain sitting upright for 30 minutes after PO intake Supervision: 1:1 Close Supervision Recommend Repeat Instrumental Swallow Assessment: TBD Need for Skilled Speech Therapy Services: Yes Comments: Ongoing assessment of diet tolerance. Train patient and staff in strategies to decrease risk for aspiration. Implement oropharyngeal strengthening (effortful, Patrice, CTAR). Education Completed: 1. Described result of evaluation., 2. Pt understands evaluation & agrees with goals and treatment plan. and 7. Pt requires further education on strategies & risks. Comments: MOISTURE METER OPERATOR reviewed recommendations and results of FEES with patient, slime plant operator, and RN.
--- NOTE | 2023-12-11 15:33 | PN.HOSP_ITS ---
Reason for Visit Reason for Visit: Diagnoses Non-ST elevation (NSTEMI) myocardial infarction (12/05/23) Acute on chronic systolic (congestive) heart failure (12/05/23) Heart failure, unspecified (12/05/23) Acute respiratory failure with hypoxia (12/05/23) Acute respiratory failure with hypercapnia (12/05/23) Chronic kidney disease, unspecified (12/05/23) Objective Data Objective Data Vital Signs: Vital Signs Temp Pulse Resp BP Pulse Ox O2 Del Method O2 Flow Rate 97.7 F L 76 18 135/59 H 96 High Flow 7 12/11/23 15:07 12/11/23 15:07 12/11/23 15:07 12/11/23 15:07 12/11/23 15:07 12/11/23 15:07 12/11/23 15:07 FiO2 50 12/11/23 09:51 Oxygen Flow Rate (L/min) 7 Oxygen Delivery Method High Flow Weight: 149 lb 14.629 oz Body Mass Index (BMI) 24.9 Intake & Output: Intake and Output for Last 24 Hours 12/09/23 12/10/23 12/11/23 23:59 23:59 23:59 Intake Total 995 / 1235 1190 / 1190 624 / 624 Output Total 820 / 1020 1200 / 2200 1575 / 1575 Balance 175 / 215 -10 / -1010 -951 / -951 Lab / Micro Data 12/11/23 05:10 12/11/23 05:10 Labs: Laboratory Results - last 24 hr 12/10/23 17:07: POC Glucose 255 H 12/10/23 20:40: POC Glucose 227 H 12/11/23 05:10: WBC 10.8, RBC 5.06, Hgb 14.8, Hct 47.1, MCV 93.1, MCH 29.2, MCHC 31.4 L, RDW Std Deviation 50.6 H, RDW Coeff of Audi 14.8 H, Plt Count 177, MPV 10.9, Immature Gran % (Auto) 0.500, Neut % (Auto) 83.3 H, Lymph % (Auto) 9.6 L, [place] % (Auto) 6.5, Eos % (Auto) 0.0, Baso % (Auto) 0.1, Absolute Neuts (auto) 9.0 H, Absolute Lymphs (auto) 1.04, Nucleated RBC % 0, Sodium 134 L, Potassium 4.3, Chloride 96 L, Carbon Dioxide 31.0, Anion Gap 7, BUN 78 H, Creatinine 1.87 H, Estim Creat Clear Calc 29.23, Est GFR (MDRD) Af Amer 45 L, Est GFR (MDRD) Non-Af 37 L, BUN/Creatinine Ratio 41.7 H, Glucose 255 H, Calcium 9.1, B- Natriuretic Peptide 131.4 H 12/11/23 06:43: POC Glucose 239 H Micro: Microbiology 12/07/23 10:49 Mucosa - Nasopharyngeal Respiratory Panel (PCR) - Final 12/07/23 10:49 Mucosa - Nasopharyngeal Coronavirus COVID-19 PCR - Final Radiography Diagnostic Testing: Radiology Impression Chest CT 12/11/23 13:15 IMPRESSION: Mediastinal lymphadenopathy. Small left pleural effusion with dense consolidation in the posterior aspect of the lingular segment of the left upper lobe with narrowing of the intermediate stem bronchus Prominence of both pulmonary arteries suggestive of a pulmonary hypertension.. Left hilar mass with postobstructive pneumonitis should BE ruled out. Correlation with a PET scan is recommended. Electronically Signed: Randolph Joyce MD at 14:02 EDT , Physical Exam Narrative Patient having cough no wheezing. Seen and examined General: Alert, Oriented x3, Cooperative HEENT: Atraumatic, PERRLA, EOMI, Normocephalic Oral: No Gingival or Mucosal Lesions/ Ulcerations Neck: Supple, No JVD, Negative Carotid Bruits Chest wall/Lungs: Air entry diminished in bilateral lungs. Mild wheezing and crepitations bilaterally. On Airvo/high flow oxygen Cardiovascular: Regular rate, Regular Rhythm, Normal S1, Normal S2, No M/G/R Abdomen: Bowel Sounds Present, Soft, Non Tender, Non-Distended : No dysuria. No renal angle tenderness. No suprapubic tenderness. Extremities: Lower extremity edema is improved. Capillary Refill Less than 3 Seconds Skin: No rashes, No breakdown Musculoskeletal: No Tenderness to Palpation of Joints or Extremities Neurological: Cranial nerves II-XII grossly intact, DTR 2+/4. No acute focal neurological deficit. Psych/Mental Status: Flat affect Assessment & Plan Assessment/Plan (1) CHF exacerbation: QUALIFIERS: Heart failure type: systolic Qualified Code(s): I 50.23 - Acute on chronic systolic (congestive) heart failure (2) Non-ST elevated myocardial infarction: PLAN: Plan #Acute hypoxic and hypercapnic respiratory failure due to acute heart failure with reduced EF * Now on Airvo and is on 50 L/min at FiO2 of 54%. * Chest x-ray showed bilateral pleural effusions and evidence of fluid overload. * 2D echo ordered showed EF of 20 to 25% and severe global hypokinesis of left ventricle ventricle with evidence of diastolic dysfunction and mildly dilated left ventricle. Now off IV Lasix drip and on IV lasix 40mg bid. * Breathing treatments with bronchodilators. Titrate oxygen to maintain saturation above 90%. * Cardiology on board. switched from lasix drip to IV lasix. * Pulmonology on board. 12/09: Lasix increased to 40 every 12 hourly. Creatinine around 2.05. Bilateral leg swelling. 12/10: Creatinine is improving. Continue Lasix. On 7 L of high flow oxygen. Chest CT scan shows dense consolidation in the posterior aspect of the lingular segment of the left upper lobe with narrowing of the intermediate stem bronchus with suspicion of left hilar mass leading to post obstructive pneumonitis. [employer] Tanner note reviewed. Mycoplasma serology pending. #Non-STEMI: * Initial troponin was elevated and trended up somewhat with peak of 192. * On aspirin as well as high intensity statin. * This may also be due to troponin leak from the respiratory failure as patient denies any chest pain. Cardiology on board. Await recs. * 2D echo as above * heparin drip discontinued #Elevated bicarb: Bicarb today is down to 33. Will monitor closely. If bicarb continues to trend upwards, will have to hold diuresis to prevent contraction alkalosis #Type 2 diabetes mellitus: On Lantus and glipizide. Insulin sliding scale. Accu-Cheks ACHS. 12/09: Glucose level is high, 250-350. A1c 7.3. Started on scheduled Humalog insulin. 12/10: Humalog and Lantus insulin dosages were increased #Depression: On sertraline #Hyperlipidemia: On statin CAD: On aspirin, statin and Plavix #CKD stage IV: * Patient used to be on dialysis but this was Discontinued in April 2024 per nephrology. * Monitor kidney function. Creatinine is 2.10 today down from 2.33 on admission. His baseline seems to be around 3-3.4 DVT prophylaxis: Subcu heparin. Heparin drip discontinued per cardiology. CODE STATUS: Full code Clinical Impression(s) from Imaging Studies Chest X-Ray 12/05/23 18:18 IMPRESSION: Bilateral effusions with patchy bilateral airspace disease which may represent edema. Electronically Signed: Kris Burdick MD at 18:55 EDT , Echocardiogram 12/05/23 22:06 Interpretation Summary Mildly dilated left ventricle. The estimated ejection fraction is 20-25 %. There is severe global hypokinesis of the left ventricle. There is evidence of diastolic dysfunction. Ordering Physician: Bro Redd Referring Physician: MD Connie Mich Performed By: Olga Lambert [facility] Chest X-Ray 12/07/23 12:30 IMPRESSION: Mild improvement in the lung aeration. Residual bilateral pleural effusions and patchy infiltrates worse in the left hemithorax. The CHF has improved. Chest CT 12/11/23 13:15 IMPRESSION: Mediastinal lymphadenopathy. Small left pleural effusion with dense consolidation in the posterior aspect of the lingular segment of the left upper lobe with narrowing of the intermediate stem bronchus Prominence of both pulmonary arteries suggestive of a pulmonary hypertension.. Left hilar mass with postobstructive pneumonitis should BE ruled out. Correlation with a PET scan is recommended. Electronically Signed: Randolph Joyce MD at 14:02 EDT , Charges/Coding Visit Charges Inpatient E&M: 67624 Subs Hosp L2
[2023-12-11] MEDS: Insulin Lispro 100 UNIT/ML INSULN.PEN 6 UNIT SC (16:40)
[2023-12-11 17:05] LABS: Bedside Glucose 273 mg/dL (74-106)
[2023-12-11] MEDS: Insulin Glargine-YFGN 100 UNIT/ML Pen 15 UNIT SC (21:55)
[2023-12-11] MEDS: ROSUVASTATIN CALCIUM 40 MG TABLET PO (21:56)
[2023-12-11 22:13] LABS: Bedside Glucose 244 mg/dL (74-106)
[2023-12-12] VITALS (12 sets, daily range): BP systolic 94–121; BP diastolic 40–65; PULSE 74–82; RESP 16–24; TEMP 36–36.7; O2SAT 90–96
[2023-12-12] MEDS: Albuterol 2.5 MG/3 ML VIAL.NEB. INHALATION (03:19)
[2023-12-12] MEDS: Menthol/Lanolin/Calamine/Znox 113 GM Tube 1 APPLIC TOPICAL ×3 (05:18→21:35)
[2023-12-12] MEDS: Gabapentin 400 MG Capsule PO ×3 (05:19→22:29)
[2023-12-12] MEDS: Acetaminophen 325 MG Tablet 650 MG PO ×3 (05:23→22:28)
[2023-12-12 06:15] LABS: Absolute Lymphocyte Count 1.61 X10^3/uL (0.83-4.51); Absolute Neutrophil Count 9.3 X10^3/uL (2.0-7.7); Basophil# 0.02 X10^3/uL; Basophil% 0.2 % (0-1); Eosinophil# 0.13 X10^3/uL; Hematocrit 46.4 % (40-54); Hemoglobin 14.4 g/dL (13.0-16.5); Lymphocyte # 1.61 X10^3/ul (0.83-4.51); Lymphocyte % 12.9 % (19-41); Mean Corpuscular Hgb 28.9 pg (27.0-32.0); Mean Platelet Vol. 10.6 fl (6.2-12.0); Monocyte# 1.24 X10^3/uL; NRBC Flagged by Analyzer 0 % (0-5); Neutrophil # 9.34 X10^3/uL (2.7-7.7); Neutrophil % 75.1 % (47-70); Platelet Count 163 K/mm3 (150-450); RBC Distribution Width CV 14.6 % (11.6-14.6); RBC Distribution Width SD 50.2 fl (35.1-43.9); Red Blood Count 4.99 M/mm3 (4.6-6.2); White Blood Count 12.4 K/mm3 (4.4-11.0)
[2023-12-12 06:43] LABS: Anion Gap 6 (5-15); BUN 84 mg/dL (7-18); Calcium,Total 9.2 mg/dL (8.5-10.1); Chloride 99 mmol/L (98-107); Creatinine, Serum 1.91 mg/dL (0.70-1.30); EST Glomerular Filtration Rate 37 mL/min (>60); Est Glom Filt Rate - Afr Amer 44 mL/min (>60); Estimated Creatinine Clearance 28.62 ml/min; Glucose 156 mg/dL (74-106); Potassium 4.2 mmol/L (3.5-5.1); Sodium Level 138 mmol/L (136-145)
[2023-12-12] MEDS: Ipratropium/Albuterol Sulfate 3 ML AMPUL.NEB INHALATION ×3 (07:01→19:10)
[2023-12-12] MEDS: Budesonide Respules 0.5 MG/2 ML AMPUL.NEB. INHALATION ×2 (07:01→19:10)
[2023-12-12] MEDS: Enoxaparin 30 MG/0.3 ML Syringe SC (08:26)
[2023-12-12] MEDS: HYDROcodone Bitartrate/Apap 5/325 Tablet PO ×2 (08:26→17:29)
[2023-12-12] MEDS: Insulin Lispro 100 UNIT/ML INSULN.PEN SC ×5 (08:27→22:25)
[2023-12-12] MEDS: Insulin Lispro 100 UNIT/ML INSULN.PEN 6 UNIT SC ×3 (08:27→17:24)
[2023-12-12] MEDS: Clopidogrel Bisulfate 75 MG Tablet PO (08:28)
[2023-12-12] MEDS: Sertraline 100 MG Tablet PO (08:28)
[2023-12-12] MEDS: Piperacil/Tazobactam 3.375 GM in 0.9% Normal Saline (50mL MB+) 50 ML IV ×3 (08:28→21:32)
[2023-12-12] MEDS: Aspirin E.C. 81 MG Tablet PO (08:28)
[2023-12-12] MEDS: predniSONE 20 MG Tablet 40 MG PO (08:28)
[2023-12-12] MEDS: NYSTATIN 500,000 UNIT/5 ML UDC 500000 UNIT PO ×2 (08:29→14:13)
[2023-12-12 09:02] LABS: Bedside Glucose 200 mg/dL (74-106)
[2023-12-12] MEDS: Furosemide 40 MG/4 ML Vial IV (11:27)
[2023-12-12 12:25] LABS: Bedside Glucose 361 mg/dL (74-106)
--- NOTE | 2023-12-12 14:20 | PN.HOSP_ITS ---
Reason for Visit Reason for Visit: Diagnoses Non-ST elevation (NSTEMI) myocardial infarction (12/05/23) Acute on chronic systolic (congestive) heart failure (12/05/23) Heart failure, unspecified (12/05/23) Acute respiratory failure with hypoxia (12/05/23) Acute respiratory failure with hypercapnia (12/05/23) Chronic kidney disease, unspecified (12/05/23) Objective Data Objective Data Vital Signs: Vital Signs Temp Pulse Resp BP Pulse Ox O2 Del Method O2 Flow Rate 97.7 F L 77 20 H 115/51 L 93 Nasal Cannula 5 12/12/23 11:23 12/12/23 13:03 12/12/23 13:03 12/12/23 11:23 12/12/23 11:23 12/12/23 11:23 12/12/23 11:23 FiO2 50 12/11/23 09:51 Oxygen Flow Rate (L/min) 5 Oxygen Delivery Method Nasal Cannula Weight: 149 lb 14.629 oz Body Mass Index (BMI) 24.9 Intake & Output: Intake and Output for Last 24 Hours 12/10/23 12/11/23 12/12/23 23:59 23:59 23:59 Intake Total 1190 / 1190 1024 / 1024 230 / 230 Output Total 1200 / 2200 2575 / 2575 900 / 900 Balance -10 / -1010 -1551 / -1551 -670 / -670 Lab / Micro Data 12/12/23 05:20 12/12/23 05:20 Labs: Laboratory Results - last 24 hr 12/11/23 16:37: POC Glucose 273 H 12/11/23 21:42: POC Glucose 244 H 12/12/23 05:20: WBC 12.4 H, RBC 4.99, Hgb 14.4, Hct 46.4, MCV 93.0, MCH 28.9, M CHC 31.0 L, RDW Std Deviation 50.2 H, RDW Coeff of Audi 14.6, Plt Count 163, MPV 10.6, Immature Gran % (Auto) 0.800, Neut % (Auto) 75.1 H, Lymph % (Auto) 12.9 L, [place] % (Auto) 10.0, Eos % (Auto) 1.0, Baso % (Auto) 0.2, Absolute Neuts (auto) 9.3 H, Absolute Lymphs (auto) 1.61, Nucleated RBC % 0, Sodium 138, Potassium 4.2, Chloride 99, Carbon Dioxide 33.0 H, Anion Gap 6, BUN 84 H, Creatinine 1.91 H, Estim Creat Clear Calc 28.62, Est GFR (MDRD) Af Amer 44 L, Est GFR (MDRD) Non-Af 37 L, BUN/Creatinine Ratio 44.0 H, Glucose 156 H, Calcium 9.2 12/12/23 08:10: POC Glucose 200 H 12/12/23 11:28: POC Glucose 361 H Micro: Microbiology 12/11/23 15:15 Urine, Clean Catch Streptococcus pneumoniae Antigen (M - Final Streptococcus pneumonia Ag 12/11/23 15:15 Urine, Clean Catch Legionella Antigen - Final 12/07/23 10:49 Mucosa - Nasopharyngeal Respiratory Panel (PCR) - Final 12/07/23 10:49 Mucosa - Nasopharyngeal Coronavirus COVID-19 PCR - Final Physical Exam Narrative Patient having cough no wheezing. Overall respiratory status is improving. On 5 L of high flow oxygen. No fever. Seen and examined General: Alert, Oriented x3, Cooperative HEENT: Atraumatic, PERRLA, EOMI, Normocephalic Oral: No Gingival or Mucosal Lesions/ Ulcerations Neck: Supple, No JVD, Negative Carotid Bruits Chest wall/Lungs: Air entry diminished in bilateral lungs. Mild wheezing and crepitations bilaterally. On high flow oxygen Cardiovascular: Regular rate, Regular Rhythm, Normal S1, Normal S2, No M/G/R Abdomen: Bowel Sounds Present, Soft, Non Tender, Non-Distended : No dysuria. No renal angle tenderness. No suprapubic tenderness. Extremities: Lower extremity edema has improved. Capillary Refill Less than 3 Seconds Skin: No rashes, No breakdown Musculoskeletal: No Tenderness to Palpation of Joints or Extremities Neurological: Cranial nerves II-XII grossly intact, DTR 2+/4. No acute focal neurological deficit. Psych/Mental Status: Flat affect Assessment & Plan Assessment/Plan (1) CHF exacerbation: QUALIFIERS: Heart failure type: systolic Qualified Code(s): I 50.23 - Acute on chronic systolic (congestive) heart failure (2) Non-ST elevated myocardial infarction: PLAN: Plan #Acute hypoxic and hypercapnic respiratory failure due to acute heart failure with reduced EF * Now on Airvo and is on 50 L/min at FiO2 of 54%. * Chest x-ray showed bilateral pleural effusions and evidence of fluid overload. * 2D echo ordered showed EF of 20 to 25% and severe global hypokinesis of left ventricle ventricle with evidence of diastolic dysfunction and mildly dilated left ventricle. Now off IV Lasix drip and on IV lasix 40mg bid. * Breathing treatments with bronchodilators. Titrate oxygen to maintain saturation above 90%. * Cardiology on board. switched from lasix drip to IV lasix. * Pulmonology on board. 12/09: Lasix increased to 40 every 12 hourly. Creatinine around 2.05. Bilateral leg swelling. 12/10: Creatinine is improving. Continue Lasix. On 7 L of high flow oxygen. Chest CT scan shows dense consolidation in the posterior aspect of the lingular segment of the left upper lobe with narrowing of the intermediate stem bronchus with suspicion of left hilar mass leading to post obstructive pneumonitis. [employer] Technician note reviewed. Mycoplasma serology pending. 12/11: Creatinine went up from 1.87-1.91 but seems still on the baseline. Continue IV Lasix 40 mg daily. Aggressive incentive spirometry. Patient on IV Zosyn started on 12/11 by industry consultant. Oxygen improving, 5 L/min #Non-STEMI: * Initial troponin was elevated and trended up somewhat with peak of 192. * On aspirin as well as high intensity statin. * This may also be due to troponin leak from the respiratory failure as patient denies any chest pain. Cardiology on board. Await recs. * 2D echo as above * heparin drip discontinued #Elevated bicarb: Bicarb today is down to 33. Will monitor closely. If bicarb continues to trend upwards, will have to hold diuresis to prevent contraction alkalosis #Type 2 diabetes mellitus: On Lantus and glipizide. Insulin sliding scale. Accu-Cheks ACHS. 12/09: Glucose level is high, 250-350. A1c 7.3. Started on scheduled Humalog insulin. 12/10: Humalog and Lantus insulin dosages were increased #Depression: On sertraline #Hyperlipidemia: On statin CAD: On aspirin, statin and Plavix #CKD stage IV: * Patient used to be on dialysis but this was Discontinued in April 2024 per nephrology. * Monitor kidney function. Creatinine is 2.10 today down from 2.33 on admission. His baseline seems to be around 3-3.4 8/6: Creatinine on baseline. DVT prophylaxis: Subcu heparin. Heparin drip discontinued per cardiology. CODE STATUS: Full code Clinical Impression(s) from Imaging Studies Chest X-Ray 12/05/23 18:18 IMPRESSION: Bilateral effusions with patchy bilateral airspace disease which may represent edema. Electronically Signed: Kris Burdick MD at 18:55 EDT , Echocardiogram 12/05/23 22:06 Interpretation Summary Mildly dilated left ventricle. The estimated ejection fraction is 20-25 %. There is severe global hypokinesis of the left ventricle. There is evidence of diastolic dysfunction. Ordering Physician: Bro Redd Referring Physician: MD Connie Mich Performed By: Olga Lambert, [facility] Chest X-Ray 12/07/23 12:30 IMPRESSION: Mild improvement in the lung aeration. Residual bilateral pleural effusions and patchy infiltrates worse in the left hemithorax. The CHF has improved. Chest CT 12/11/23 13:15 IMPRESSION: Mediastinal lymphadenopathy. Small left pleural effusion with dense consolidation in the posterior aspect of the lingular segment of the left upper lobe with narrowing of the intermediate stem bronchus Prominence of both pulmonary arteries suggestive of a pulmonary hypertension.. Left hilar mass with postobstructive pneumonitis should BE ruled out. Correlation with a PET scan is recommended. Electronically Signed: Randolph Joyce MD at 14:02 EDT , Charges/Coding Visit Charges Inpatient E&M: 53944 Subs Hosp L2
--- NOTE | 2023-12-12 15:56 | CASEMGMT ---
REGLA GUTIERREZ in to discuss discharge planning with patient. Patient doing well with therapy. REGLA GUTIERREZ updated patient regarding [facility] setup, patient voiced appreciation. REGLA GUTIERREZ to monitor for home oxygen at discharge, patient states he prefers [employer]. Patient denied further needs or concerns at this time.
--- NOTE | 2023-12-12 15:57 | PN.CC_ITS ---
Objective Data Objective Data Vital Signs: Vital Signs Last response 3 Temperature 36.6 C 12/12/23 14:18 Temperature Source Oral 12/12/23 14:18 Pulse Rate 80 12/12/23 14:18 Pulse Strength Weak (1+) 12/11/23 07:46 Respiratory Rate 16 12/12/23 14:18 Respiratory Effort Normal, Non-Labored 12/12/23 10:00 Respiratory Depth Normal 12/12/23 10:00 Respiratory Pattern Normal 12/12/23 13:03 Blood Pressure 97/58 L 12/12/23 14:18 Blood Pressure Mean 71 12/12/23 14:18 Blood Pressure Source Monitor 12/12/23 14:18 Blood Pressure Position Sitting 12/12/23 14:18 Blood Pressure Location Right Arm 12/12/23 14:18 Pulse Ox 94 12/12/23 14:18 Oxygen Delivery Method Nasal Cannula 12/12/23 14:18 Oxygen Flow Rate (L/min) 5 12/12/23 14:18 Fraction of Inspired Oxygen (FIO2) 50 12/11/23 09:51 I&O: I&O Last 24 Hours 3 12/11/23 12/12/23 12/12/23 23:59 11:59 23:59 Intake Total 1024 / 1024 180 / 230 50 / 230 Output Total 1200 / 2575 900 / 900 Balance -176 / -1551 -720 / -670 50 / -670 I&O: Total Stay 3 12/05/23 17:53 thru 12/12/23 12:28 Intake Total 7131.32 Output Total 70108 Balance -5413.68 Current Meds Ordered / Administered: Current meds ordered / Administered 3 Generic Name Dose Route Start Last Admin Trade Name Freq PRN Reason Stop Dose Admin Acetaminophen 650 mg 12/05/23 22:06 12/12/23 14:17 Acetaminophen 325 Mg Tablet PO 650 mg Q6H PRN PRN Administration Pain 1-10 Or Fever >100.7 Hydrocodone Bitart/Acetaminophen 1 tablet 12/05/23 22:49 12/12/23 08:26 Hydrocodone Bitartrate/Apap 5/325 Tablet PO 1 tablet Q8H PRN Administration PAIN 4-10 Albuterol Sulfate 2.5 mg 12/05/23 22:06 12/12/23 03:19 Albuterol 2.5 Mg/3 Ml Vial.Neb. INHALATION 2.5 mg Q2H PRN PRN Administration SOB &/OR WHEEZING Albuterol/Ipratropium 3 ml 12/05/23 22:15 12/12/23 13:03 Ipratropium/Albuterol Sulfate 3 Ml Ampul.Neb INHALATION 3 ml Q6HWA.RT DONA Administration Aspirin 81 mg 12/06/23 08:00 12/12/23 08:28 Aspirin E.C. 81 Mg Tablet PO 81 mg DAILYCM DONA Administration Budesonide 0.5 mg 12/05/23 22:15 12/12/23 07:01 Budesonide Respules 0.5 Mg/2 Ml Ampul.Neb. INHALATION 0.5 mg Q12H.RT DONA Administration Calamine/Phenol 1 applic 12/06/23 06:00 12/12/23 14:13 Menthol/Lanolin/Calamine/Znox 113 Gm Tube TOPICAL 1 applic TID DONA Administration Protocol Carvedilol 3.125 mg 12/05/23 22:06 12/12/23 08:14 Carvedilol 3.125 Mg Tablet PO Not Given BID DONA Protocol Clopidogrel Bisulfate 75 mg 12/06/23 10:00 12/12/23 08:28 Clopidogrel Bisulfate 75 Mg Tablet PO 75 mg DAILY DONA Administration Enoxaparin Sodium 30 mg 12/10/23 10:00 12/12/23 08:26 Enoxaparin 30 Mg/0.3 Ml Syringe SC 30 mg DAILY DONA Administration Furosemide 40 mg 12/12/23 10:00 12/12/23 11:27 Furosemide 40 Mg/4 Ml Vial IV 40 mg DAILY DONA Administration Protocol Gabapentin 400 mg 12/05/23 22:06 12/12/23 14:16 Gabapentin 400 Mg Capsule PO 400 mg TID DONA Administration Glipizide 5 mg 12/06/23 07:30 12/07/23 08:48 Glipizide 5 Mg Tablet PO Not Given BID@0730,1630 DONA Glucagon 1 mg 12/05/23 22:06 Glucagon 1 Mg/Ml Syringe IM X1 PRN HYPOGLYCEMIA Protocol Dextrose 250 mls @ 0 mls/hr 12/05/23 22:06 12/06/23 16:55 Dextrose 10%-Water IV Infused .Q0M PRN Infusion HYPOGLYCEMIA Protocol As Directed Piperacillin Sod/Tazobactam 50 mls @ 12.5 mls/hr 12/12/23 06:50 12/12/23 14:16 Sod 3.375 gm/ Sodium Chloride IV 12.5 mls/hr Q8 DONA Administration Insulin Glargine 15 unit 12/11/23 22:00 12/11/23 21:55 Insulin Glargine-Yfgn 100 Unit/Ml Pen SC 15 unit QHS DONA Administration Insulin Human Lispro 0 unit 12/09/23 22:00 12/12/23 11:29 Insulin Lispro 100 Unit/Ml Insuln.Pen SC 6 unit ACHS DONA Administration Protocol Insulin Human Lispro 6 unit 12/11/23 16:00 12/12/23 11:29 Insulin Lispro 100 Unit/Ml Insuln.Pen SC 6 unit TIDAC DONA Administration Nystatin 500,000 unit 12/11/23 12:45 12/12/23 14:13 Nystatin 500,000 Unit/5 Ml Udc PO 500,000 unit 4X/DAY DONA Administration Nystatin 500,000 unit 12/12/23 14:00 12/12/23 14:13 Nystatin 500,000 Unit/5 Ml Po.Syringe ([facility]) PO Not Given 4X/DAY [facility] Ondansetron HCl 4 mg 12/05/23 22:06 Ondansetron 4 Mg/2 Ml Vial IV Q8H PRN PRN NAUSEA/VOMITING Prednisone 40 mg 12/12/23 08:00 12/12/23 08:28 Prednisone 20 Mg Tablet PO 40 mg BREAKFAST DONA Administration Rosuvastatin Calcium 40 mg 12/05/23 22:06 12/11/23 21:56 Rosuvastatin Calcium 40 Mg Tablet PO 40 mg QHS DONA Administration Sertraline HCl 100 mg 12/06/23 10:00 12/12/23 08:28 Sertraline 100 Mg Tablet PO 100 mg DAILY [facility] Administration Sodium Chloride 10 - 40 ml 12/05/23 22:18 12/10/23 20:46 0.9% Saline Lock 10 Ml Syringe IV 10 ml UD PRN Administration SALINE FLUSH Lab / Micro Data 12/12/23 05:20 12/12/23 05:20 Labs: Laboratory Results - last 24 hr 12/11/23 16:37: POC Glucose 273 H 12/11/23 21:42: POC Glucose 244 H 12/12/23 05:20: WBC 12.4 H, RBC 4.99, Hgb 14.4, Hct 46.4, MCV 93.0, MCH 28.9, M CHC 31.0 L, RDW Std Deviation 50.2 H, RDW Coeff of Audi 14.6, Plt Count 163, MPV 10.6, Immature Gran % (Auto) 0.800, Neut % (Auto) 75.1 H, Lymph % (Auto) 12.9 L, [place] % (Auto) 10.0, Eos % (Auto) 1.0, Baso % (Auto) 0.2, Absolute Neuts (auto) 9.3 H, Absolute Lymphs (auto) 1.61, Nucleated RBC % 0, Sodium 138, Potassium 4.2, Chloride 99, Carbon Dioxide 33.0 H, Anion Gap 6, BUN 84 H, Creatinine 1.91 H, Estim Creat Clear Calc 28.62, Est GFR (MDRD) Af Amer 44 L, Est GFR (MDRD) Non-Af 37 L, BUN/Creatinine Ratio 44.0 H, Glucose 156 H, Calcium 9.2 12/12/23 08:10: POC Glucose 200 H 12/12/23 11:28: POC Glucose 361 H Micro: Microbiology 12/11/23 15:15 Urine, Clean Catch Streptococcus pneumoniae Antigen (M - Final Streptococcus pneumonia Ag 12/11/23 15:15 Urine, Clean Catch Legionella Antigen - Final Assessment and Plan . Assessment and plan: 1. Resp Failure: acute/hypoxemic. ? Chronic hypercapnea. 2/2 decompensated HF + pneumonia(post obstructive). Better today. Down to 5L. Wean as tolerated. Will need home O2. 2. CHF Exac: acute on chronic. Systolic. Continue current diuretics. 3. COPD exac: Continue nebs. Continue oral steroids- Will need 2 week taper. 4. Pneumonia: CT showed Lingular consolidation. Hilar mass. Appears post obstructive. Continue zosyn. Change to augmentin for 10-14 day course when ready for d/c. 5. Hilar mass: will need bronch + EBUS as outpt. 5. FEN: oral diet 6. CKD: Cr improving. UOP excellent 7. PX: Chemical. The entirety of this encounter was done via Telemedicine Physical Exam Narrative awake, NAD pupils:= O/p:clear CV: RRR Chest: CTA B ,wheezing better Abd:soft, Nt Ext: no c/c/e Skim: no rashes Subjective Subjective O2 req better
[2023-12-12 17:09] LABS: Bedside Glucose 316 mg/dL (74-106)
[2023-12-12] MEDS: Nystatin 500,000 UNIT/5 ML PO.SYRINGE (WCH) 500000 UNIT PO (17:23)
[2023-12-12] MEDS: Carvedilol 3.125 MG TABLET PO (21:38)
[2023-12-12] MEDS: ROSUVASTATIN CALCIUM 40 MG TABLET PO (21:39)
[2023-12-12] MEDS: Insulin Glargine-YFGN 100 UNIT/ML Pen 15 UNIT SC (22:31)
[2023-12-13] VITALS (8 sets, daily range): BP systolic 111–127; BP diastolic 47–71; PULSE 72–83; RESP 17–20; TEMP 35.8–36.7; O2SAT 94–100
[2023-12-13 00:54] LABS: Bedside Glucose 357 mg/dL (74-106)
[2023-12-13] MEDS: HYDROcodone Bitartrate/Apap 5/325 Tablet PO ×3 (02:15→22:11)
[2023-12-13 05:34] LABS: Absolute Lymphocyte Count 1.42 X10^3/uL (0.83-4.51); Absolute Neutrophil Count 7.7 X10^3/uL (2.0-7.7); Basophil# 0.01 X10^3/uL; Basophil% 0.1 % (0-1); Eosinophil# 0.16 X10^3/uL; Eosinophils% 1.5 % (0-5); Hematocrit 46.3 % (40-54); Hemoglobin 14.6 g/dL (13.0-16.5); Lymphocyte # 1.42 X10^3/ul (0.83-4.51); Lymphocyte % 13.7 % (19-41); Mean Corp Hgb Conc 31.5 g/dL (32-36); Mean Corpuscular Hgb 29.7 pg (27.0-32.0); Mean Corpuscular Volume 94.3 fL (80-94); Mean Platelet Vol. 11.3 fl (6.2-12.0); Monocyte# 1.02 X10^3/uL; Monocyte% 9.8 % (0-10); NRBC Flagged by Analyzer 0 % (0-5); Neutrophil # 7.71 X10^3/uL (2.7-7.7); Neutrophil % 74.3 % (47-70); Platelet Count 144 K/mm3 (150-450); RBC Distribution Width CV 14.6 % (11.6-14.6); RBC Distribution Width SD 50.4 fl (35.1-43.9); Red Blood Count 4.91 M/mm3 (4.6-6.2); White Blood Count 10.4 K/mm3 (4.4-11.0)
[2023-12-13] MEDS: Gabapentin 400 MG Capsule PO ×3 (05:56→22:11)
[2023-12-13] MEDS: Piperacil/Tazobactam 3.375 GM in 0.9% Normal Saline (50mL MB+) 50 ML IV ×2 (05:56→13:40)
[2023-12-13] MEDS: Menthol/Lanolin/Calamine/Znox 113 GM Tube 1 APPLIC TOPICAL ×2 (05:56→22:04)
[2023-12-13] MEDS: Insulin Lispro 100 UNIT/ML INSULN.PEN 6 UNIT SC ×3 (06:07→16:08)
[2023-12-13 06:10] LABS: Anion Gap 2 (5-15); BUN 81 mg/dL (7-18); BUN/Creat Ratio 35.5 RATIO (10-20); Chloride 96 mmol/L (98-107); Creatinine, Serum 2.28 mg/dL (0.70-1.30); EST Glomerular Filtration Rate 30 mL/min (>60); Est Glom Filt Rate - Afr Amer 36 mL/min (>60); Estimated Creatinine Clearance 23.98 ml/min; Glucose 218 mg/dL (74-106); Potassium 3.9 mmol/L (3.5-5.1); Sodium Level 137 mmol/L (136-145)
[2023-12-13 06:56] LABS: Bedside Glucose 185 mg/dL (74-106)
[2023-12-13] MEDS: Ipratropium/Albuterol Sulfate 3 ML AMPUL.NEB INHALATION ×3 (06:56→19:18)
[2023-12-13] MEDS: Budesonide Respules 0.5 MG/2 ML AMPUL.NEB. INHALATION ×2 (06:56→19:18)
--- NOTE | 2023-12-13 07:42 | PN.HOSP_ITS ---
Reason for Visit Reason for Visit: Diagnoses Non-ST elevation (NSTEMI) myocardial infarction (12/05/23) Acute on chronic systolic (congestive) heart failure (12/05/23) Heart failure, unspecified (12/05/23) Acute respiratory failure with hypoxia (12/05/23) Acute respiratory failure with hypercapnia (12/05/23) Chronic kidney disease, unspecified (12/05/23) Objective Data Objective Data Vital Signs: Vital Signs Temp Pulse Resp BP Pulse Ox O2 Del Method O2 Flow Rate 96.5 F L 80 20 H 122/49 H 95 Nasal Cannula 5 12/13/23 04:00 12/13/23 07:00 12/13/23 07:00 12/13/23 04:00 12/13/23 07:37 12/13/23 07:37 12/13/23 07:37 FiO2 50 12/11/23 09:51 Oxygen Flow Rate (L/min) 5 Oxygen Delivery Method Nasal Cannula Weight: 149 lb 14.629 oz Body Mass Index (BMI) 24.9 Intake & Output: Intake and Output for Last 24 Hours 12/11/23 12/12/23 12/13/23 23:59 23:59 23:59 Intake Total 1024 / 1024 280 / 630 400 / 400 Output Total 2575 / 2575 1500 / 1800 300 / 300 Balance -1551 / -1551 -1220 / -1170 100 / 100 Lab / Micro Data 12/13/23 04:30 12/13/23 04:30 Labs: Laboratory Results - last 24 hr 12/12/23 08:10: POC Glucose 200 H 12/12/23 11:28: POC Glucose 361 H 12/12/23 16:45: POC Glucose 316 H 12/12/23 21:30: POC Glucose 357 H 12/13/23 04:30: WBC 10.4, RBC 4.91, Hgb 14.6, Hct 46.3, MCV 94.3 H, MCH 29.7, M CHC 31.5 L, RDW Std Deviation 50.4 H, RDW Coeff of Audi 14.6, Plt Count 144 L, MPV 11.3, Immature Gran % (Auto) 0.600, Neut % (Auto) 74.3 H, Lymph % (Auto) 13.7 L, [place] % (Auto) 9.8, Eos % (Auto) 1.5, Baso % (Auto) 0.1, Absolute Neuts (auto) 7.7, Absolute Lymphs (auto) 1.42, Nucleated RBC % 0, Sodium 137, Potassium 3.9, Chloride 96 L, Carbon Dioxide 39.0 H, Anion Gap 2 L, BUN 81 H, C reatinine 2.28 H, Estim Creat Clear Calc 23.98, Est GFR (MDRD) Af Amer 36 L, Est GFR (MDRD) Non-Af 30 L, BUN/Creatinine Ratio 35.5 H, Glucose 218 H, Calcium 9.0 12/13/23 06:00: POC Glucose 185 H Micro: Microbiology 12/11/23 15:15 Urine, Clean Catch Streptococcus pneumoniae Antigen (M - Final Streptococcus pneumonia Ag 12/11/23 15:15 Urine, Clean Catch Legionella Antigen - Final 12/07/23 10:49 Mucosa - Nasopharyngeal Respiratory Panel (PCR) - Final 12/07/23 10:49 Mucosa - Nasopharyngeal Coronavirus COVID-19 PCR - Final Physical Exam Narrative Patient having cough no wheezing. Overall respiratory status is improving. On 5 L of high flow oxygen. No fever. No significant improvement. Seen and examined General: Alert, Oriented x3, Cooperative HEENT: Atraumatic, PERRLA, EOMI, Normocephalic Oral: No Gingival or Mucosal Lesions/ Ulcerations Neck: Supple, No JVD, Negative Carotid Bruits Chest wall/Lungs: Air entry diminished in bilateral lungs. Mild wheezing and crepitations bilaterally. On high flow oxygen Cardiovascular: Regular rate, Regular Rhythm, Normal S1, Normal S2, No M/G/R Abdomen: Bowel Sounds Present, Soft, Non Tender, Non-Distended : No dysuria. No renal angle tenderness. No suprapubic tenderness. Extremities: Lower extremity edema has improved. Capillary Refill Less than 3 Seconds Skin: No rashes, No breakdown Musculoskeletal: No Tenderness to Palpation of Joints or Extremities Neurological: Cranial nerves II-XII grossly intact, DTR 2+/4. No acute focal neurological deficit. Psych/Mental Status: Flat affect Const alert, oriented x3 and no apparent distress Constitutional Narrative: on Airvo. General Appearance: cooperative HEENT normocephalic, head/scalp atraumatic, moist oral mucous membranes and oropharynx normal Eyes PERRL and EOMs intact bilaterally Eyes Narrative: No icterus. Glasses. Neck no lymphadenopathy, supple and no JVD Lymph Lymphatic: no lymphadenopathy noted and no lymphedema noted Resp normal respiratory effort and no use of accessory muscles Resp Narrative: Moderately diminished breath sounds bilaterally. Mild wheezes and few crackles bilaterally. On Airvo with oxygen flow rate of 50 L/min and FiO2 of 54%. Cardio regular rate, regular rhythm, S1 normal heart sound, S2 normal heart sound and no murmurs GI normal to inspection, nondistended, normoactive bowel sounds, soft to palpation, non-tender, non-distended and hepatosplenomegaly Extremity normal capillary refill, no clubbing, cyanosis or edema and no calf tenderness Extremity Narrative: Bilateral lower extremity edema General Extremity: no tenderness to palpation of joints or extremities Skin Skin Narrative: Dry skin lower extremities. General Skin Exam: no breakdown Neuro CN's II-XII intact bilaterally, moves all extremities and no focal motor deficits Sensorium / Orientation: awake and alert Coordination / Balance: [id number] test normal Motor Exam: strength 5/5 throughout and general weakness Psych thought process normal, cooperative and affect normal Appearance: appropriate Assessment & Plan Assessment/Plan (1) CHF exacerbation: QUALIFIERS: Heart failure type: systolic Qualified Code(s): I 50.23 - Acute on chronic systolic (congestive) heart failure (2) Non-ST elevated myocardial infarction: PLAN: Plan #Acute hypoxic and hypercapnic respiratory failure due to acute heart failure with reduced EF, left upper lobe pneumonia possible due to Streptococcus pneumonia * Now on Airvo and is on 50 L/min at FiO2 of 54%. * Chest x-ray showed bilateral pleural effusions and evidence of fluid overload. * 2D echo ordered showed EF of 20 to 25% and severe global hypokinesis of left ventricle ventricle with evidence of diastolic dysfunction and mildly dilated left ventricle. Now off IV Lasix drip and on IV lasix 40mg bid. * Breathing treatments with bronchodilators. Titrate oxygen to maintain saturation above 90%. * Cardiology on board. switched from lasix drip to IV lasix. * Pulmonology on board. 12/09: Lasix increased to 40 every 12 hourly. Creatinine around 2.05. Bilateral leg swelling. 12/10: Creatinine is improving. Continue Lasix. On 7 L of high flow oxygen. Chest CT scan shows dense consolidation in the posterior aspect of the lingular segment of the left upper lobe with narrowing of the intermediate stem bronchus with suspicion of left hilar mass leading to post obstructive pneumonitis. Professor Of [employer] note reviewed. Mycoplasma serology pending. 12/11: Creatinine went up from 1.87-1.91 but seems still on the baseline. Continue IV Lasix 40 mg daily. Aggressive incentive spirometry. Patient on IV Zosyn started on 12/11 by gear tooth grinding machine operator. Oxygen improving, 5 L/min 12/12: Probably chronic hypercapnia. Due to decompensated heart failure and postobstructive pneumonia. After discharge, patient will need to follow-up in pulmonary clinic and require EBUS with biopsy. Discussed with the gear tooth grinding machine operator. Urine antigen positive for Streptococcus pneumonia. Modified barium swallow showed silent aspiration of thin liquid. Recommended nectar thick full liquid diet due to poor esophageal clearance of pudding and liquids. Therefore probably patient also has aspiration pneumonia. Currently on Zosyn will narrow down to Unasyn #Non-STEMI: * Initial troponin was elevated and trended up somewhat with peak of 192. * On aspirin as well as high intensity statin. * This may also be due to troponin leak from the respiratory failure as patient denies any chest pain. Cardiology on board. Await recs. * 2D echo as above * heparin drip discontinued # Acute on chronic metabolic alkalosis Usually his bicarb is around 33. Patient bicarb increased to 39. Sodium potassium in normal range. Anion gap low 2. #Type 2 diabetes mellitus: On Lantus and glipizide. Insulin sliding scale. Accu-Cheks ACHS. 12/09: Glucose level is high, 250-350. A1c 7.3. Started on scheduled Humalog insulin. 12/10: Humalog and Lantus insulin dosages were increased #Depression: On sertraline #Hyperlipidemia: On statin CAD: On aspirin, statin and Plavix #CKD stage IV: * Patient used to be on dialysis but this was Discontinued in April 2024 per nephrology. * Monitor kidney function. Creatinine is 2.10 today down from 2.33 on admission. His baseline seems to be around 3-3.4 12/11: Creatinine on baseline. 12/12: Hold the Lasix. Creatinine also increased to 2.28. Monitor kidney functio DVT prophylaxis: Subcu heparin. Heparin drip discontinued per cardiology. CODE STATUS: Full code Clinical Impression(s) from Imaging Studies Chest X-Ray 12/05/23 18:18 IMPRESSION: Bilateral effusions with patchy bilateral airspace disease which may represent edema. Electronically Signed: Kris Burdick MD at 18:55 EDT , Echocardiogram 12/05/23 22:06 Interpretation Summary Mildly dilated left ventricle. The estimated ejection fraction is 20-25 %. There is severe global hypokinesis of the left ventricle. There is evidence of diastolic dysfunction. Ordering Physician: Bro Redd Referring Physician: MD Connie Mich Performed By: Olga Lambert, CS Chest X-Ray 12/07/23 12:30 IMPRESSION: Mild improvement in the lung aeration. Residual bilateral pleural effusions and patchy infiltrates worse in the left hemithorax. The CHF has improved. Chest CT 12/11/23 13:15 IMPRESSION: Mediastinal lymphadenopathy. Small left pleural effusion with dense consolidation in the posterior aspect of the lingular segment of the left upper lobe with narrowing of the intermediate stem bronchus Prominence of both pulmonary arteries suggestive of a pulmonary hypertension.. Left hilar mass with postobstructive pneumonitis should BE ruled out. Correlation with a PET scan is recommended. Electronically Signed: Randolph Joyce MD at 14:02 EDT , Charges/Coding Visit Charges Inpatient E&M: 37076 Subs Hosp L2
[2023-12-13] MEDS: Aspirin E.C. 81 MG Tablet PO (08:14)
[2023-12-13] MEDS: Clopidogrel Bisulfate 75 MG Tablet PO (08:14)
[2023-12-13] MEDS: predniSONE 20 MG Tablet 40 MG PO (08:14)
[2023-12-13] MEDS: Sertraline 100 MG Tablet PO (08:14)
[2023-12-13] MEDS: Enoxaparin 30 MG/0.3 ML Syringe SC (08:14)
--- NOTE | 2023-12-13 11:29 | SP.MBSS_ITS ---
Modified Barium Swallow Patient Information Study Date: 12/13/23 Study Time: 13:00 Direct Billable Minutes: 104 Total Minutes procedure & reportin Diagnosis: PNA J18.9 Referring Physician: Roberth Stevens Reason for Referral: Objectively assess swallow function, assess risk for aspiration, and determine recommendations for least restrictive diet textures and compensatory strategies to improve safety of swallow. Medical History: Past Medical History:: PMH: Bilateral hearing loss, Anxiety, Diabetes, Chronic pain, Kidney stones, Kidney disease, Former smoker, Sleep apnea, COPD, Chest pain, NM, HTN, DVT, Unable to walk, JOHN (See EMR for full PMH). The patient presented to [facility] ED 12/05/2023 with shortness of breath. Symptoms had been developing over the past few weeks, more short of breath, which peaked day of admission prompting EMS being called. Hypoxic (pulse ox 60s) and patient was placed on a nasal cannula, then ventimask, and brought to the ED. After work up in the ED, he was admitted to the hospital for management of CHF exacerbation and NSTEMI amongst other comorbidities. Patient was referred for ST consult due to concerns for aspiration 12/10/23. On 12/10/23, VEHICLE RETURN ASSOCIATE recommended NPO with plans for MBSS today to assess aspiration risk prior to diet advancement due to desaturation with trials of oral intake; however, patient is still on Airvo and can't be transferred to radiology. This VEHICLE RETURN ASSOCIATE recommended proceeding with FEES to objectively assess swallow function and aspiration risk. FEES 12/11/2023 revealed mild-moderate oropharyngeal dysphagia. Patient had aspiration of thin liquids via straw. He was recommended for Easy to Chew Textures and Thin Liquids, meds whole in puree; oral care after meals, ok for water at bedside between meals; for meals, ensure SpO2 remains in the 90s; Compensatory Strategies: Small Bites, Small Sips, No Straws, Slow Rate, Multiple Swallows, Sitting upright and Remain sitting upright for 30 minutes after PO intake; Supervision: 1:1 Close Supervision. The patient has since been weaned from Airvo to nasal cannula, but has continued s/s of aspiration with thin liquids. VEHICLE RETURN ASSOCIATE recommends MBSS Current Diet Ordered: Easy to Chew textures / Thin liquids - No straws Mental Status: WNL (Followed commands for implementing swallowing strategies with minimal repetition) Respiratory Status: Oxygenating on 4L/M nasal cannula (5L via nasal cannula) Penetration-Aspiration Scale Penetration-Aspiration Scale: OBJECTIVE ASSESSMENT OF SWALLOW FUNCTION (QUANTITATIVE ? PER TRIAL): PENETRATION / ASPIRATION SCALE (RUVALCABA): 1 = does not enter airway 2 = enters airway/above vocal folds/ejected 3 = enters airway/above vocal folds/not ejected 4 = enters airway/contacts vocal folds/ejected 5 = enters airway/contacts vocal folds/not ejected 6 = enters airway/below vocal folds/ejected 7 = enters airway/below vocal folds/not ejected despite effort 8 = enters airway/below vocal folds/no effort VIDEOFLOROSCOPIC SCALE SCORE (RUVALCABA): Grade I = aspiration of material that has penetrated into the laryngeal vestibule, intact cough reflex Grade II = aspiration < 10 % of the bolus, intact cough reflex Grade III = aspiration of < 10 % of the bolus, reduced cough reflex or aspiration of > 10 % of the bolus, intact cough reflex Grade IV = aspiration of > 10 % of the bolus, reduced cough reflex Penetration-Aspiration Scale Score Thin Liquid via teaspoon: Result: 3= enters airways/above vocal folds/not ejected Thin Liquid via teaspoon Trial 2: Result: 3= enters airways/above vocal folds/not ejected Thin Liquid via large single sip: cup: Result: 8= enters airway/below vocal folds/no effort Comment: VEHICLE RETURN ASSOCIATE had cued a small sip. Patient was cued to cough and re-swallow, which was somewhat effective in clearing residues from the laryngeal vestibule. Thin Liquid via small single sip: cup: Result: 5= enters airways/contacts vocal folds/not ejected Bishop Thick Liquid via large single sip: cup: Result: 5= enters airways/contacts vocal folds/not ejected Pudding via teaspoon: Result: 1= does not enter airway Comment: Esophageal screen - Retention throughout the esophagus. Thin Liquid via small single sip: cup Chin tuck: Result: 1= does not enter airway Comment: Esophageal screen - Retention in mid esophagus with retrograde flow to upper esophagus. Thin Liquid via small single sip: cup Chin tuck Trial 2: Result: 8= enters airway/below vocal folds/no effort Thin Liquid via small single sip: cup Effortful swallow: Result: 8= enters airway/below vocal folds/no effort Bishop Thick Liquid via small single sip: cup: Result: 1= does not enter airway Comment: VEHICLE RETURN ASSOCIATE cued chin tuck, but patient did not execute Bishop Thick Liquid via small single sip: cup Chin tuck: Result: 1= does not enter airway Bishop Thick Liquid via small single sip: cup Chin tuck Trial 2: Result: 1= does not enter airway Bishop Thick Liquid via small single sip: cup Trial 3: Result: 1= does not enter airway Comment: Esophageal screen - Retention of barium throughout esophagus with retrograde flow. Lower esophagus appears tortuous. Oral Phase Labial Seal: Interlabial escape, no progression to anterior lip Tongue Control During Bolus Hold: Posterior escape of greater than half of bolus Bolus Transport/Lingual Motion: Repetitive/disorganized tongue motion Oral Residue: Residue collection on oral structures Pharyngeal Phase Initiation of Pharyngeal Swallow: Bolus head in pyriforms Soft Palate Elevation: No bolus between soft palate and pharyngeal wall Laryngeal Elevation: Partial superior movement thyroid cart/partial apprx aryt- epig petiole Anterior Hyoid Excursion: Partial anterior movement Epiglottic Movement: Complete inversion Laryngeal Vestibule Closure at Height of Swallow: Incomplete; narrow column of air/contrast in laryngeal vestibule Pharyngeal Stripping Wave: Present - diminished Pharyngoesophageal Segment Opening: Parital distension and partial duration; parital obstruction of flow Tongue Base Retraction: Wide column of contrast between tongue base & post. pharyngeal wall Pharyngeal Residue: Collection of residue within or on pharyngeal structures Esophageal Phase Esophageal Clearance: Esophageal retention w/ retrograde flow below pharyngoesophageal seg. Diagnosis/Impression Diagnosis: Moderate oropharyngeal dysphagia R13.12; Esophageal dysphagia R13.14 Impression: The oral phase is primarily marked by... -Decreased bolus control with premature posterior loss of >1/2 the bolus to the pyriforms prior to swallow onset. -Slowed and repetitive tongue motion for A-P transport most notable with pudding. -Did not assess cookie during MBSS due to poor esophageal clearance of liquids and pudding. The pharyngeal phase is primarily marked by... -Delayed swallow onset. -Decreased airway closure due to decreased anterior hyoid excursion and laryngeal elevation. -Mild-moderate pharyngeal residues due to decreased pharyngeal stripping wave, tongue base retraction, and UES opening/duration. -SILENT aspiration of thin liquids via large sip by cup and with use of chin tuck and effortful swallow. Deep laryngeal penetration of thin liquids via small sip by cup and mildly thick liquids via large sip by cup, placing the patient at increased risk for post prandial aspiration. Decreased bolus size and chin tuck were most effective in decreasing risk for aspiration. The esophageal phase is primarily marked by... -Retention of liquids and pudding in the esophagus with retrograde flow. -Tortuous appearing lower esophagus. Recommendations Diet: Bishop-thick Liquids (FULL MILDLY THICK LIQUID DIET) Comment: After GI consult, patient is ok to advance to Easy to Chew textures if cleared by Dr. Chew. Compensatory Strategies: Small Bites, Small Sips, No Straws, Slow Rate, Chin Tuck, Sitting upright and Remain sitting upright for 30 minutes after PO intake Supervision: 1:1 Close Supervision Recommend Repeat Modified Barium Swallow: Yes (1-2 weeks after implementation of oropharyngeal exercise program) Need for Skilled Speech Therapy Services: Yes Comment: -Train the patient in use of strategies to decrease risk for aspiration and reflux aspiration. -Ongoing assessment of diet tolerance of recommended textures. After GI consult, patient is ok to advance to Easy to Chew textures if cleared by Dr. Chew. -Train the patient in oropharyngeal exercise program to improve bolus control, swallow onset, airway closure, tongue base retraction, and pharyngeal contraction (lingual resistance, Patrice, Effortful, Loren). Recommended Referrals: GI Consult Education Completed: 1. Described result of evaluation. Status Active ST Patient: Active Contact Information [facility] Speech Therapy:: Beverly West M.A. [facility]-VEHICLE RETURN ASSOCIATE? Speech-Language Pathologist?? [facility] [address] [place] [address]? [email or web address]?? [phone]
[2023-12-13] MEDS: Insulin Lispro 100 UNIT/ML INSULN.PEN SC ×3 (11:38→22:05)
[2023-12-13 11:50] LABS: Bedside Glucose 334 mg/dL (74-106)
--- NOTE | 2023-12-13 13:18 | PN.CC_ITS ---
Objective Data Objective Data Vital Signs: Vital Signs Last response 3 Temperature 36.4 C L 12/13/23 08:11 Temperature Source Oral 12/13/23 08:11 Pulse Rate 72 12/13/23 08:11 Pulse Strength Weak (1+) 12/12/23 22:00 Respiratory Rate 18 12/13/23 08:11 Respiratory Effort Short of Breath 12/12/23 22:00 Respiratory Depth Normal 12/13/23 08:19 Respiratory Pattern Normal 12/13/23 08:19 Blood Pressure 111/47 L 12/13/23 08:11 Blood Pressure Mean 68 12/13/23 08:11 Blood Pressure Source Monitor 12/13/23 08:11 Blood Pressure Position Sitting 12/13/23 08:11 Blood Pressure Location Right Arm 12/13/23 08:11 Pulse Ox 94 12/13/23 08:11 Oxygen Delivery Method Nasal Cannula 12/13/23 08:19 Oxygen Flow Rate (L/min) 5 12/13/23 09:25 Fraction of Inspired Oxygen (FIO2) 50 12/11/23 09:51 I&O: I&O Last 24 Hours 3 12/12/23 12/13/23 12/13/23 23:59 11:59 23:59 Intake Total 100 / 630 450 / 450 Output Total 600 / 1800 300 / 300 Balance -500 / -1170 150 / 150 I&O: Total Stay 3 12/05/23 17:53 thru 12/13/23 10:04 Intake Total 7631.32 Output Total 90107 Balance -5813.68 Current Meds Ordered / Administered: Current meds ordered / Administered 3 Generic Name Dose Route Start Last Admin Trade Name Divya PRN Reason Stop Dose Admin Acetaminophen 650 mg 12/05/23 22:06 12/12/23 22:28 Acetaminophen 325 Mg Tablet PO 650 mg Q6H PRN PRN Administration Pain 1-10 Or Fever >100.7 Hydrocodone Bitart/Acetaminophen 1 tablet 12/05/23 22:49 12/13/23 10:14 Hydrocodone Bitartrate/Apap 5/325 Tablet PO 1 tablet Q8H PRN Administration PAIN 4-10 Albuterol Sulfate 2.5 mg 12/05/23 22:06 12/12/23 03:19 Albuterol 2.5 Mg/3 Ml Vial.Neb. INHALATION 2.5 mg Q2H PRN PRN Administration SOB &/OR WHEEZING Albuterol/Ipratropium 3 ml 12/05/23 22:15 12/13/23 06:56 Ipratropium/Albuterol Sulfate 3 Ml Ampul.Neb INHALATION 3 ml Q6HWA.RT DONA Administration Aspirin 81 mg 12/06/23 08:00 12/13/23 08:14 Aspirin E.C. 81 Mg Tablet PO 81 mg DAILYCM DONA Administration Budesonide 0.5 mg 12/05/23 22:15 12/13/23 06:56 Budesonide Respules 0.5 Mg/2 Ml Ampul.Neb. INHALATION 0.5 mg Q12H.RT DONA Administration Calamine/Phenol 1 applic 12/06/23 06:00 12/13/23 05:56 Menthol/Lanolin/Calamine/Znox 113 Gm Tube TOPICAL 1 applic TID DONA Administration Protocol Carvedilol 3.125 mg 12/05/23 22:06 12/13/23 08:14 Carvedilol 3.125 Mg Tablet PO Not Given BID DONA Protocol Clopidogrel Bisulfate 75 mg 12/06/23 10:00 12/13/23 08:14 Clopidogrel Bisulfate 75 Mg Tablet PO 75 mg DAILY DONA Administration Enoxaparin Sodium 30 mg 12/10/23 10:00 12/13/23 08:14 Enoxaparin 30 Mg/0.3 Ml Syringe SC 30 mg DAILY DONA Administration Gabapentin 400 mg 12/05/23 22:06 12/13/23 05:56 Gabapentin 400 Mg Capsule PO 400 mg TID DONA Administration Glipizide 5 mg 12/06/23 07:30 12/07/23 08:48 Glipizide 5 Mg Tablet PO Not Given BID@0730,1630 DONA Glucagon 1 mg 12/05/23 22:06 Glucagon 1 Mg/Ml Syringe IM X1 PRN HYPOGLYCEMIA Protocol Guaifenesin 10 ml 12/13/23 06:32 Guaifenesin 10 Ml Udc (200mg/10ml) PO Q4H PRN PRN COUGH/CONGESTION Dextrose 250 mls @ 0 mls/hr 12/05/23 22:06 12/06/23 16:55 Dextrose 10%-Water IV Infused .Q0M PRN Infusion HYPOGLYCEMIA Protocol As Directed Piperacillin Sod/Tazobactam 50 mls @ 12.5 mls/hr 12/12/23 06:50 08/07/24 10:04 Sod 3.375 gm/ Sodium Chloride IV Infused Q8 DONA Infusion Insulin Glargine 15 unit 12/11/23 22:00 12/12/23 22:31 Insulin Glargine-Yfgn 100 Unit/Ml Pen SC 15 unit QHS DONA Administration Insulin Human Lispro 0 unit 12/09/23 22:00 12/13/23 11:38 Insulin Lispro 100 Unit/Ml Insuln.Pen SC 5 unit ACHS DONA Administration Protocol Insulin Human Lispro 6 unit 12/11/23 16:00 12/13/23 11:38 Insulin Lispro 100 Unit/Ml Insuln.Pen SC 6 unit TIDAC DONA Administration Nystatin 500,000 unit 12/12/23 18:00 12/13/23 11:49 Nystatin 500,000 Unit/5 Ml Po.Syringe ([facility]) PO Not Given 4X/DAY [facility] Ondansetron HCl 4 mg 12/05/23 22:06 Ondansetron 4 Mg/2 Ml Vial IV Q8H PRN PRN NAUSEA/VOMITING Prednisone 40 mg 12/12/23 08:00 12/13/23 08:14 Prednisone 20 Mg Tablet PO 40 mg BREAKFAST DONA Administration Rosuvastatin Calcium 40 mg 12/05/23 22:06 12/12/23 21:39 Rosuvastatin Calcium 40 Mg Tablet PO 40 mg QHS DONA Administration Sertraline HCl 100 mg 12/06/23 10:00 12/13/23 08:14 Sertraline 100 Mg Tablet PO 100 mg DAILY DONA Administration Sodium Chloride 10 - 40 ml 12/05/23 22:18 12/10/23 20:46 0.9% Saline Lock 10 Ml Syringe IV 10 ml UD PRN Administration SALINE FLUSH Lab / Micro Data 12/13/23 04:30 12/13/23 04:30 Labs: Laboratory Results - last 24 hr 12/12/23 16:45: POC Glucose 316 H 12/12/23 21:30: POC Glucose 357 H 12/13/23 04:30: WBC 10.4, RBC 4.91, Hgb 14.6, Hct 46.3, MCV 94.3 H, MCH 29.7, M CHC 31.5 L, RDW Std Deviation 50.4 H, RDW Coeff of Audi 14.6, Plt Count 144 L, MPV 11.3, Immature Gran % (Auto) 0.600, Neut % (Auto) 74.3 H, Lymph % (Auto) 13.7 L, [place] % (Auto) 9.8, Eos % (Auto) 1.5, Baso % (Auto) 0.1, Absolute Neuts (auto) 7.7, Absolute Lymphs (auto) 1.42, Nucleated RBC % 0, Sodium 137, Potassium 3.9, Chloride 96 L, Carbon Dioxide 39.0 H, Anion Gap 2 L, BUN 81 H, C reatinine 2.28 H, Estim Creat Clear Calc 23.98, Est GFR (MDRD) Af Amer 36 L, Est GFR (MDRD) Non-Af 30 L, BUN/Creatinine Ratio 35.5 H, Glucose 218 H, Calcium 9.0 12/13/23 06:00: POC Glucose 185 H 12/13/23 11:18: POC Glucose 334 H Micro: Microbiology 12/11/23 15:15 Urine, Clean Catch Streptococcus pneumoniae Antigen (M - Final Streptococcus pneumonia Ag Assessment and Plan . Assessment and plan: . Resp Failure: acute/hypoxemic. ? Chronic hypercapnea. 2/2 decompensated HF + pneumonia(post obstructive). Stable today. On 5L. Wean as tolerated. Will need home O2. 2. CHF Exac: acute on chronic. Systolic. HCO3 and Cr higher. Will hold diuretics today. 3. COPD exac: Continue nebs. Continue oral steroids- Will need 2 week taper. 4. Pneumonia: CT showed Lingular consolidation. Hilar mass. Appears post obstructive. Continue zosyn. Change to augmentin for 10-14 day course when ready for d/c. 5. Hilar mass: will need bronch + EBUS as outpt. 5. FEN: oral diet 6. CKD: Cr improving. UOP excellent 7. PX: Chemical. Will sign off. Call with questions. The entirety of this encounter was done via Telemedicine Physical Exam Const Constitutional Narrative: awake, sitting in chair puipls = o/p:clear CV RRR Chest: diffuse wheezing, good a/e, crackles in left mid lung field Abd: soft, nt, +bs Ext: no c/e/c Skin: no rashes Subjective Subjective no events.
[2023-12-13 15:08] LABS: Mycoplasma Pneum AB IgG < 100 U/mL (0-99); Mycoplasma pneum. AB IgM < 770 U/mL (0-769)
[2023-12-13] MEDS: Nystatin 500,000 UNIT/5 ML PO.SYRINGE (WCH) 500000 UNIT PO ×2 (15:41→22:03)
[2023-12-13 15:50] LABS: Bedside Glucose 230 mg/dL (74-106)
[2023-12-13 15:50] LABS: Bedside Glucose 248 mg/dL (74-106)
--- NOTE | 2023-12-13 17:40 | EX.PCM.CON.G ---
HPI Consult Data Date of Consult: 12/13/23 HPI Narrative Reason for Consultation: Abnormal swallowing study HPI Narrative: JONAH ALEXANDRA, is a 78 M who presents with shortness of breath. Symptoms have been developing over the past few weeks, more short of breath. He was found to be volume overloaded and was started on a Lasix drip. His shortness of breath has improved significantly. Patient has history of coronary artery disease status post CABG, possible left main stent after that, CKD with acute on chronic renal failure last admission requiring dialysis for a brief period, history of CHF, hypertension. He has not been following with a railroad firer for some time. 2D echo done on this admission revealed an EF of 20 to 25%. In 2019 coronary angiography revealed patent COLIN to LAD. He had severe left main stenosis for which he was sent to [facility] for PCI. He was also diagnosed with COPD exacerbation and hypoxic respiratory failure. He has been seen by hot man service and is on medical therapy. I was asked to see him because he underwent swallowing study and it showed poor clearance in his esophagus. He says that he has a history of esophageal dysphagia. He does have liquid and solid food dysphagia. He also admits to dysphagia and occasional painful swallowing with pills. [facility] Medical History Hearing loss, left Hearing loss, right Anxiety Diabetes Chronic pain Kidney stones Kidney disease Former smoker Sleep apnea COPD (chronic obstructive pulmonary disease) Chest pain Myocardial infarct Hypertension DVT (deep venous thrombosis) Unable to walk Acute kidney injury Home Medications ?Medication ?Instructions ?Recorded ?Last Taken ?Type gabapentin 400 mg capsule 400 mg PO TID NERVE PAIN 08/20/18 12/05/23 History glipizide 5 mg tablet 5 mg PO .BEFORE MEALS DM 08/20/18 12/05/23 History sertraline 50 mg tablet 100 mg PO DAILY DEPRESSION 08/20/18 12/05/23 History carvedilol 3.125 mg tablet 3.125 mg PO BID 08/21/18 12/05/23 Rx clopidogrel 75 mg tablet 75 mg PO DAILY 08/21/18 12/05/23 Rx albuterol 90 mcg/actuation aerosol 90 mcg inhalation .4X A DAY PRN SOB 12/30/22 Unknown History inhaler amlodipine 10 mg tablet 10 mg PO DAILY 08/25/23 Unknown History cholecalciferol (vitamin D3) 25 75 mcg PO DAILY 12/30/22 12/05/23 History mcg (1,000 unit) capsule cyanocobalamin (vitamin B-12) 1,000 mcg PO DAILY 12/30/22 12/05/23 History 1,000 mcg capsule hydrocodone-acetaminophen 5-325mg 1 tab PO TID 12/30/22 12/05/23 History 5mg-325mg insulin glargine 100 unit/mL 50 unit subcut QHS 12/30/22 12/04/23 History subcutaneous solution mometasone 200 mcg/actuation HFA 2 puff inhalation BID 12/30/22 12/05/23 History aerosol inhaler (Asmanex HFA) rosuvastatin 40 mg tablet (Crestor) 40 mg PO QHS 12/30/22 12/04/23 History tiotropium 2.5 mcg-olodaterol 2.5 2 inh inhalation DAILY 12/30/22 12/05/23 History mcg/actuation mist for inhalation (Stiolto Respimat) aspirin 81 mg tablet,delayed 81 mg PO DAILY 12/05/23 12/05/23 History release (Adult Aspirin Regimen) furosemide 40 mg tablet 40 mg PO DAILY 12/05/23 12/05/23 History Allergy/AdvReac Type Severity Reaction Status Date / Time No Known Allergies Allergy Verified 04/27/23 08:45 Surgical History Hx of CABG History of coronary artery stent placement Social History household members: spouse Smoking Status: Former smoker ROS ROS Narrative No fever or chills. No nausea or vomiting. No abdominal pain. All review of systems were negative except as mentioned above in the history of present illness and the other review of systems. Physical Exam Narrative Patient having cough Seen and examined General: Alert, Oriented x3, Cooperative HEENT: Atraumatic, PERRLA, EOMI, Normocephalic Oral: No Gingival or Mucosal Lesions/ Ulcerations Neck: Supple, No JVD, Negative Carotid Bruits Chest wall/Lungs: Air entry diminished in bilateral lungs. Mild wheezing and crepitations bilaterally. On high flow oxygen Cardiovascular: Regular rate, Regular Rhythm, Normal S1, Normal S2, No M/G/R Abdomen: Bowel Sounds Present, Soft, Non Tender, Non-Distended : No dysuria. No renal angle tenderness. No suprapubic tenderness. Extremities: Lower extremity edema has improved. Capillary Refill Less than 3 Seconds Skin: No rashes, No breakdown Musculoskeletal: No Tenderness to Palpation of Joints or Extremities Neurological: Cranial nerves II-XII grossly intact, DTR 2+/4. No acute focal neurological deficit. Psych/Mental Status: Flat affect Const alert, oriented x3 and no apparent distress Constitutional Narrative: on Airvo. General Appearance: cooperative HEENT normocephalic, head/scalp atraumatic, moist oral mucous membranes and oropharynx normal Eyes PERRL and EOMs intact bilaterally Eyes Narrative: No icterus. Glasses. Neck no lymphadenopathy, supple and no JVD Lymph Lymphatic: no lymphadenopathy noted and no lymphedema noted Resp normal respiratory effort and no use of accessory muscles Resp Narrative: Moderately diminished breath sounds bilaterally. Mild wheezes and few crackles bilaterally. On Airvo with oxygen flow rate of 50 L/min and FiO2 of 54%. Cardio regular rate, regular rhythm, S1 normal heart sound, S2 normal heart sound and no murmurs GI normal to inspection, nondistended, normoactive bowel sounds, soft to palpation, non-tender, non-distended and hepatosplenomegaly Extremity normal capillary refill, no clubbing, cyanosis or edema and no calf tenderness Extremity Narrative: Bilateral lower extremity edema General Extremity: no tenderness to palpation of joints or extremities Skin Skin Narrative: Dry skin lower extremities. General Skin Exam: no breakdown Neuro CN's II-XII intact bilaterally, moves all extremities and no focal motor deficits Sensorium / Orientation: awake and alert Coordination / Balance: [id number] test normal Motor Exam: strength 5/5 throughout and general weakness Psych thought process normal, cooperative and affect normal Appearance: appropriate Lab / Micro Data 12/13/23 04:30 12/13/23 04:30 Labs: Laboratory Results - last 24 hr 12/11/23 11:00: POC Glucose 230 H 12/11/23 11:14: POC Glucose 248 H 12/11/23 14:09: Mycoplasma pneumon IgG < 100, Mycoplasma pneumon IgM < 770 12/12/23 21:30: POC Glucose 357 H 12/13/23 04:30: WBC 10.4, RBC 4.91, Hgb 14.6, Hct 46.3, MCV 94.3 H, MCH 29.7, MCHC 31.5 L, RDW Std Deviation 50.4 H, RDW Coeff of Audi 14.6, Plt Count 144 L, MPV 11.3, Immature Gran % (Auto) 0.600, Neut % (Auto) 74.3 H, Lymph % (Auto) 13.7 L, [place] % (Auto) 9.8, Eos % (Auto) 1.5, Baso % (Auto) 0.1, Absolute Neuts (auto) 7.7, Absolute Lymphs (auto) 1.42, Nucleated RBC % 0, Sodium 137, Potassium 3.9, Chloride 96 L, Carbon Dioxide 39.0 H, Anion Gap 2 L, BUN 81 H, Creatinine 2.28 H, Estim Creat Clear Calc 23.98, Est GFR (MDRD) Af Amer 36 L, Est GFR (MDRD) Non-Af 30 L, BUN/Creatinine Ratio 35.5 H, Glucose 218 H, Calcium 9.0 12/13/23 06:00: POC Glucose 185 H 12/13/23 11:18: POC Glucose 334 H Micro: Microbiology 12/11/23 15:15 Urine, Clean Catch Streptococcus pneumoniae Antigen (M - Final Streptococcus pneumonia Ag Assessment & Plan Assessment/Plan (1) Dysphagia: PLAN: Differential diagnosis for him does include esophageal dysphagia secondary to Amy esophagitis, esophageal stricture, esophageal ring, erosive esophagitis from coughing. Results from swallow study today: Esophageal screen - Retention throughout the esophagus. Thin Liquid via small single sip: cup Chin tuck: Esophageal screen - Retention in mid esophagus with retrograde flow to upper esophagus. Also interval diagnosis includes diabetic gastroparesis with bile induced reflux disease. He should undergo upper endoscopy with possible dilation and biopsies of the esophagus. He was explained alternatives, risk, benefits including outstanding bleeding, infection, sepsis, perforation, need for emergent surgery and . Have an ASA of 3. Charges/Coding Visit Charges Inpatient E&M: 80266 Init Hosp L3
[2023-12-13 18:40] LABS: Bedside Glucose 316 mg/dL (74-106)
[2023-12-13] MEDS: ROSUVASTATIN CALCIUM 40 MG TABLET PO (22:04)
[2023-12-13] MEDS: Carvedilol 3.125 MG TABLET PO (22:04)
[2023-12-13] MEDS: Insulin Glargine-YFGN 100 UNIT/ML Pen 15 UNIT SC (22:06)
[2023-12-13] MEDS: Ampicillin/Sulbactam 3 GM in 0.9% Normal Saline (100mL MB+) 100 ML IV (22:16)
[2023-12-13 23:37] LABS: Bedside Glucose 284 mg/dL (74-106)
[2023-12-14] VITALS (17 sets, daily range): BP systolic 95–125; BP diastolic 46–74; PULSE 73–83; RESP 16–22; TEMP 36.4–36.7; O2SAT 92–986; BMI 24.9
--- NOTE | 2023-12-14 | IMM_PTH ---
PATIENT: JONAH ALEXANDRA LOC: [facility] U#:[id number] AGE/SX: 78/M ROOM: [facility] RE12/05/[address]: Dr. Roberth Stevens MD : 1945 BED: 1 DIS: 12/15/2023 SPEC #: [id number] RECD: 12/18/23 10:32 STATUS: SOUT REQ #: [id number] NICHOLAS: 12/14/23 00:[address]: Frederick Chew DEPT: IMMUNOHISTOCHEMISTRY RECD BY: Prince Downing ENTERED: 12/18/23 10:32 SP TYPE: IMMUNO OTHR DR: DO Dr. Mich Vitale MD Dr. Nana Yaa Koram, MD Dr. Nagapradee Nagajothi, MD Dr. Prakash Chand, MD Tissues: A - Stomach, NOS Procedures: P53 (initial) KI-67 (add) Comments: @ Ordering doctor for P53 edited from to @ by JOSE M at 12/18/23 1033 @ Ordering doctor for KI67. edited from to @ by JOSE M at 12/18/23 1033 @ Submitting doctor edited from to @ rhina SALGUERO at 12/18/23 1033 PHYSICIAN & INSTITUTION [address] [address] SPECIMEN INFORMATION: Tissue Source: A- Stomach ulcer Clinical Info: Dysphagia Specimen Number: [id number] CPT code: 77230,37002 METHODOLOGY: Deparaffinized sections of prefer/formalin-fixed tissue or PAP/DQ stained slides are incubated with monoclonal/polyclonal antibodies/oligonucleotide probes. Localization is made via biotin free immunoperoxidase method. Appropriate controls are performed and reacted as expected. Results on target cell population are indicated in the following table: RESULTS: ANTIBODY / CLONE RESULT Block A P53 (DO-7) negative, null pattern Ki-67 (30-9) negative These tests were developed and their performance characteristics determined by [facility]. They may not have been cleared or approved by the U.S. Food and Drug Administration. The FDA has determined that such clearance or approval is not necessary. The above immunohistochemical/dualISH markers are ordered and reviewed by the Pathologist. INTERPRETATION: A. Stomach, biopsy: No evidence of dysplasia. MONROE/ 12/19/2023
[2023-12-14 06:01] LABS: Absolute Neutrophil Count 9.6 X10^3/uL (2.0-7.7); Basophil# 0.01 X10^3/uL; Basophil% 0.1 % (0-1); Eosinophil# 0.16 X10^3/uL; Eosinophils% 1.3 % (0-5); Hematocrit 47.7 % (40-54); Hemoglobin 14.9 g/dL (13.0-16.5); Lymphocyte % 13.4 % (19-41); Mean Corp Hgb Conc 31.2 g/dL (32-36); Mean Corpuscular Hgb 28.8 pg (27.0-32.0); Mean Corpuscular Volume 92.3 fL (80-94); Mean Platelet Vol. 11.3 fl (6.2-12.0); Monocyte# 1.19 X10^3/uL; Monocyte% 9.4 % (0-10); NRBC Flagged by Analyzer 0 % (0-5); Neutrophil # 9.58 X10^3/uL (2.7-7.7); Neutrophil % 75.2 % (47-70); Platelet Count 151 K/mm3 (150-450); RBC Distribution Width CV 14.6 % (11.6-14.6); RBC Distribution Width SD 49.4 fl (35.1-43.9); Red Blood Count 5.17 M/mm3 (4.6-6.2); White Blood Count 12.7 K/mm3 (4.4-11.0)
[2023-12-14 06:22] LABS: Anion Gap 5 (5-15); BUN 66 mg/dL (7-18); BUN/Creat Ratio 36.9 RATIO (10-20); Chloride 99 mmol/L (98-107); Creatinine, Serum 1.79 mg/dL (0.70-1.30); EST Glomerular Filtration Rate 39 mL/min (>60); Est Glom Filt Rate - Afr Amer 48 mL/min (>60); Estimated Creatinine Clearance 30.54 ml/min; Glucose 149 mg/dL (74-106); Potassium 3.9 mmol/L (3.5-5.1); Sodium Level 137 mmol/L (136-145)
[2023-12-14] MEDS: Menthol/Lanolin/Calamine/Znox 113 GM Tube 1 APPLIC TOPICAL ×3 (06:36→22:56)
[2023-12-14 06:55] LABS: Bedside Glucose 135 mg/dL (74-106)
[2023-12-14] MEDS: Budesonide Respules 0.5 MG/2 ML AMPUL.NEB. INHALATION ×2 (07:14→19:41)
[2023-12-14] MEDS: Ipratropium/Albuterol Sulfate 3 ML AMPUL.NEB INHALATION ×2 (07:14→19:41)
--- NOTE | 2023-12-14 07:34 | PN.HOSP_ITS ---
Reason for Visit Reason for Visit: Diagnoses Non-ST elevation (NSTEMI) myocardial infarction (12/05/23) Acute on chronic systolic (congestive) heart failure (12/05/23) Heart failure, unspecified (12/05/23) Acute respiratory failure with hypoxia (12/05/23) Acute respiratory failure with hypercapnia (12/05/23) Chronic kidney disease, unspecified (12/05/23) Objective Data Objective Data Vital Signs: Vital Signs Temp Pulse Resp BP Pulse Ox O2 Del Method O2 Flow Rate 98.0 F 78 20 H 95/74 97 Nasal Cannula 4 12/14/23 06:31 12/14/23 07:15 12/14/23 07:15 12/14/23 06:31 12/14/23 07:15 12/14/23 07:15 12/14/23 07:15 FiO2 50 12/11/23 09:51 Oxygen Flow Rate (L/min) 4 Oxygen Delivery Method Nasal Cannula Weight: 149 lb 14.629 oz Body Mass Index (BMI) 24.9 Intake & Output: Intake and Output for Last 24 Hours 12/12/23 12/13/23 12/14/23 23:59 23:59 23:59 Intake Total 280 / 630 972 / 972 Output Total 1500 / 1800 1000 / 1000 320 / 320 Balance -1220 / -1170 -28 / -28 -320 / -320 Lab / Micro Data 12/14/23 05:21 12/14/23 05:21 Labs: Laboratory Results - last 24 hr 12/11/23 11:00: POC Glucose 230 H 12/11/23 11:14: POC Glucose 248 H 12/11/23 14:09: Mycoplasma pneumon IgG < 100, Mycoplasma pneumon IgM < 770 12/13/23 11:18: POC Glucose 334 H 12/13/23 16:07: POC Glucose 316 H 12/13/23 22:01: POC Glucose 284 H 12/14/23 05:21: WBC 12.7 H, RBC 5.17, Hgb 14.9, Hct 47.7, MCV 92.3, MCH 28.8, M CHC 31.2 L, RDW Std Deviation 49.4 H, RDW Coeff of Audi 14.6, Plt Count 151, MPV 11.3, Immature Gran % (Auto) 0.600, Neut % (Auto) 75.2 H, Lymph % (Auto) 13.4 L, Burke % (Auto) 9.4, Eos % (Auto) 1.3, Baso % (Auto) 0.1, Absolute Neuts (auto) 9.6 H, Absolute Lymphs (auto) 1.70, Nucleated RBC % 0, Sodium 137, Potassium 3.9, Chloride 99, Carbon Dioxide 33.0 H, Anion Gap 5, BUN 66 H, Creatinine 1.79 H, Estim Creat Clear Calc 30.54, Est GFR (MDRD) Af Amer 48 L, Est GFR (MDRD) Non-Af 39 L, BUN/Creatinine Ratio 36.9 H, Glucose 149 H, Calcium 9.0 12/14/23 06:30: POC Glucose 135 H Micro: Microbiology 12/11/23 15:15 Urine, Clean Catch Streptococcus pneumoniae Antigen (M - Final Streptococcus pneumonia Ag 12/11/23 15:15 Urine, Clean Catch Legionella Antigen - Final 12/07/23 10:49 Mucosa - Nasopharyngeal Respiratory Panel (PCR) - Final 12/07/23 10:49 Mucosa - Nasopharyngeal Coronavirus COVID-19 PCR - Final Physical Exam Narrative Patient having no cough or audible wheezing. Overall respiratory status is improving. On 3 L of high flow oxygen. No fever. No significant improvement. Has oral and esophageal dysphagia. GI consulted going for EGD today Seen and examined General: Alert, Oriented x3, Cooperative HEENT: Atraumatic, PERRLA, EOMI, Normocephalic Oral: No Gingival or Mucosal Lesions/ Ulcerations Neck: Supple, No JVD, Negative Carotid Bruits Chest wall/Lungs: Air entry diminished in bilateral lungs. Mild wheezing and crepitations bilaterally. On 3 L of oxygen Cardiovascular: Regular rate, Regular Rhythm, Normal S1, Normal S2, No M/G/R Abdomen: Bowel Sounds Present, Soft, Non Tender, Non-Distended : No dysuria. No renal angle tenderness. No suprapubic tenderness. Extremities: Lower extremity edema has improved. Capillary Refill Less than 3 Seconds Skin: No rashes, No breakdown Musculoskeletal: No Tenderness to Palpation of Joints or Extremities Neurological: Cranial nerves II-XII grossly intact, DTR 2+/4. No acute focal neurological deficit. Psych/Mental Status: Flat affect Assessment & Plan Assessment/Plan (1) CHF exacerbation: QUALIFIERS: Heart failure type: systolic Qualified Code(s): I 50.23 - Acute on chronic systolic (congestive) heart failure (2) Non-ST elevated myocardial infarction: PLAN: Plan #Acute hypoxic and hypercapnic respiratory failure due to acute heart failure with reduced EF, left upper lobe pneumonia possible due to Streptococcus pneumonia * Now on Airvo and is on 50 L/min at FiO2 of 54%. * Chest x-ray showed bilateral pleural effusions and evidence of fluid overload. * 2D echo ordered showed EF of 20 to 25% and severe global hypokinesis of left ventricle ventricle with evidence of diastolic dysfunction and mildly dilated left ventricle. Now off IV Lasix drip and on IV lasix 40mg bid. * Breathing treatments with bronchodilators. Titrate oxygen to maintain saturation above 90%. * Cardiology on board. switched from lasix drip to IV lasix. * Pulmonology on board. 12/09: Lasix increased to 40 every 12 hourly. Creatinine around 2.05. Bilateral leg swelling. 12/10: Creatinine is improving. Continue Lasix. On 7 L of high flow oxygen. Chest CT scan shows dense consolidation in the posterior aspect of the lingular segment of the left upper lobe with narrowing of the intermediate stem bronchus with suspicion of left hilar mass leading to post obstructive pneumonitis. Frontend Engineer note reviewed. Mycoplasma serology pending. 12/11: Creatinine went up from 1.87-1.91 but seems still on the baseline. Continue IV Lasix 40 mg daily. Aggressive incentive spirometry. Patient on IV Zosyn started on 12/11 by analysis engineer. Oxygen improving, 5 L/min 12/12: Probably chronic hypercapnia. Due to decompensated heart failure and postobstructive pneumonia. After discharge, patient will need to follow-up in pulmonary clinic and require EBUS with biopsy. Discussed with the analysis engineer. Urine antigen positive for Streptococcus pneumonia. Modified barium swallow showed silent aspiration of thin liquid. Recommended nectar thick full liquid diet due to poor esophageal clearance of pudding and liquids. Therefore probably patient also has aspiration pneumonia. Currently on Zosyn will narrow down to Unasyn 12/13: Bicarb and creatinine is better. Patient on 3 L of oxygen. Lasix 1 dose 40 mg about 10 AM. Blood pressure borderline 95/74 in AM. Moderate oropharyngeal and esophageal dysphagia: Modified barium swallow study shows retention throughout the esophagus. Patient also has diabetic gastroparesis and induced reflux disease. Plan for EGD. #Non-STEMI: * Initial troponin was elevated and trended up somewhat with peak of 192. * On aspirin as well as high intensity statin. * This may also be due to troponin leak from the respiratory failure as patient denies any chest pain. Cardiology on board. Await recs. * 2D echo as above * heparin drip discontinued # Acute on chronic metabolic alkalosis Usually his bicarb is around 33. Patient bicarb increased to 39. Sodium potassium in normal range. Anion gap low 2. #Type 2 diabetes mellitus: On Lantus and glipizide. Insulin sliding scale. Accu-Cheks ACHS. 12/09: Glucose level is high, 250-350. A1c 7.3. Started on scheduled Humalog insulin. 12/10: Humalog and Lantus insulin dosages were increased 12/11: Glucose 135 in the morning. Will continue same regimen of Accu-Chek before meals and at bedtime with Humalog sliding scale coverage and hypoglycemia protocol. #Depression: On sertraline #Hyperlipidemia: On statin CAD: On aspirin, statin and Plavix #CKD stage IV: * Patient used to be on dialysis but this was Discontinued in April 2024 per nephrology. * Monitor kidney function. Creatinine is 2.10 today down from 2.33 on admission. His baseline seems to be around 3-3.4 12/11: Creatinine on baseline. 12/12: Hold the Lasix. Creatinine also increased to 2.28. Monitor kidney function 12/13: Creatinine on baseline. DVT prophylaxis: Subcu heparin. Heparin drip discontinued per cardiology. CODE STATUS: Full code Clinical Impression(s) from Imaging Studies Chest X-Ray 12/05/23 18:18 IMPRESSION: Bilateral effusions with patchy bilateral airspace disease which may represent edema. Electronically Signed: Kris Burdick MD at 18:55 EDT , Echocardiogram 12/05/23 22:06 Interpretation Summary Mildly dilated left ventricle. The estimated ejection fraction is 20-25 %. There is severe global hypokinesis of the left ventricle. There is evidence of diastolic dysfunction. Ordering Physician: Bro Redd Referring Physician: MD Connie Mich Performed By: Olga Lambert [facility] Chest X-Ray 12/07/23 12:30 IMPRESSION: Mild improvement in the lung aeration. Residual bilateral pleural effusions and patchy infiltrates worse in the left hemithorax. The CHF has improved. Chest CT 12/11/23 13:15 IMPRESSION: Mediastinal lymphadenopathy. Small left pleural effusion with dense consolidation in the posterior aspect of the lingular segment of the left upper lobe with narrowing of the intermediate stem bronchus Prominence of both pulmonary arteries suggestive of a pulmonary hypertension.. Left hilar mass with postobstructive pneumonitis should BE ruled out. Correlation with a PET scan is recommended. Electronically Signed: Randolph Joyce MD at 14:02 EDT , Charges/Coding Visit Charges Inpatient E&M: 10303 Subs Hosp L2
[2023-12-14] MEDS: HYDROcodone Bitartrate/Apap 5/325 Tablet PO ×2 (08:46→19:45)
[2023-12-14] MEDS: Ampicillin/Sulbactam 3 GM in 0.9% Normal Saline (100mL MB+) 100 ML IV ×2 (08:49→23:09)
[2023-12-14] MEDS: Carvedilol 3.125 MG TABLET PO (08:50)
[2023-12-14 11:29] LABS: Bedside Glucose 151 mg/dL (74-106)
[2023-12-14] MEDS: Furosemide 40 MG/4 ML Vial IV (11:39)
--- NOTE | 2023-12-14 12:18 | PCM.PRE.AN2 ---
ASA Classification* ASA Classification ASA Classification: 3 and E Assessment & Plan Anesthesia* Anesthesia Assessment Anesthesia Assessment: Discussed sedation and/or anesthesia options, risks, benefits, and alternatives with patient/parents/legal guardian/POA. Questions invited. The patient/parents/legal guardian/POA seems to understand and agrees to proceed with anesthesia plan. Reviewed the physical assessment, medical history, allergy history and patient home medications list prior to surgery/procedure/anesthetic and documented any changes. Performed airway and anesthesia risk assessments. Anesthesia Type Anesthesia Type: MAC (see written pre anesthesia record for full assessment) Anesthesia Focused Assessment* Temperature: 97.5 F Pulse Rate: 78 Blood Pressure: 109/55 Respiratory Rate: 18 Pulse Ox: 94 Fraction of Inspired Oxygen (FIO2): 50 Airway Assessment Mouth opens: >3 cm Mallampati Score: II Focused Labs Anesthesia Preop lab: CBC WBC 12.7 K/mm3 (4.4-11.0) H 12/14/23 05:21 RBC 5.17 M/mm3 (4.6-6.2) 12/14/23 05:21 Hgb 14.9 g/dL (13.0-16.5) 12/14/23 05:21 Hct 47.7 % (40-54) 12/14/23 05:21 Plt Count 151 K/mm3 (150-450) 12/14/23 05:21 CHEMISTRY Potassium 3.9 mmol/L (3.5-5.1) 12/14/23 05:21 Sodium 137 mmol/L (136-145) 12/14/23 05:21 Magnesium 1.8 mg/dL (1.6-2.6) 01/01/23 10:20 Phosphorus 4.8 mg/dL (2.5-4.9) 01/09/23 04:00 BUN 66 mg/dL (7-18) H 12/14/23 05:21 Creatinine 1.79 mg/dL (0.70-1.30) H 12/14/23 05:21 Glucose 149 mg/dL (74-106) H 12/14/23 05:21 POC Glucose 151 mg/dL (74-106) H 12/14/23 11:11 COAG PT 14.0 SECONDS (11.7-14.9) 12/05/23 18:00 Pre-Assessment Diagnosis/Proposed Procedure Planned Operative Procedure(s): egd Anesthesia History Anesthesia History - marklogic developer: Anesthesia History - marklogic developer Hx Hospitalization Any Problems With Anesthesia No 12/14/23 03:53 Cholinesterase deficiency No 12/14/23 03:53 You/Your Family Experience No 12/14/23 03:53 fever (hyperthermia) with Relationship Recent Exposure to Contagious No 12/14/23 03:53 Disease Does patient have nerve No 12/14/23 03:53 stimulator Patient instructed to have device shut off --Does patient have Pacemaker No 12/14/23 02:09 or ICD? When Was Last Pacemaker Check QUESTION #4 FULL TEXT: You/Your Family Experience fever (hyperthermia) with Anesthesia Last Oral Intake Last Oral intake: Last Oral Intake NPO since 00:00 12/14/23 02:09 Meds taken in AM with sips of water? Meds patient instructed to take am of surgery PONV PONV - marklogic developer: PONV - marklogic developer Female HX of Motion Sickness HX of N/V After Surgery Non-Smoker Duration of Surgery greater than 60 minutes Number of Risk Factors PONV Score Height & Weight Height & Weight: Anesthesia: Height & Weight Height 5 ft 5 in 12/14/23 11:04 Weight: 68 kg 12/14/23 11:04 Body Mass Index (BMI) 24.9 12/14/23 02:09 Respiratory Assessment Respiratory Assessment - marklogic developer: Respiratory Tract Infection Hx - marklogic developer Hx Respiratory Tract Infection No 12/14/23 03:53 STOP Sleep Apnea STOP Sleep Apnea - marklogic developer: STOP Sleep Apnea - marklogic developer Hx Hypertension Yes 12/07/23 13:05 Hx Sleep Apnea Yes 12/05/23 22:08 CPAP No 12/05/23 22:08 BIPAP No 12/05/23 22:08 Do you snore loudly (louder than talking or can be heard Do you often feel tired/ fatigued/ sleepy during daytime? Has anyone observed you stop breathing during sleep? STOP Results Positive 12/05/23 22:08 QUESTION #5 FULL TEXT : Do you snore loudly (louder than talking or can be heard through closed doors)? 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 Specify any problems Hx of Preganancy in last 3 N/A 12/05/23 22:08 Months Nurse Filling Out Transfusion ENMANUELYCAPPLE 12/05/23 22:08 & Questions: Date: 12/05/23 12/05/23 22:08 Time: 22:29 12/05/23 22:08 Patient unable to answer at this time (ie. confused, unrespo /Reproduction History /Reproductive History - marklogic developer: /Reproductive Hx- marklogic developer Hx Now No 12/14/23 03:53 Gestational Age (in weeks): EDC: Hx Hx Para Hx Section SAB No 12/14/23 03:53 Active Medications Active Medications: Current Medications Generic Name Dose Route Start Last Admin Trade Name Freq PRN Reason Stop Dose Admin Acetaminophen 650 mg 12/05/23 22:06 12/12/23 22:28 Acetaminophen 325 Mg Tablet PO 650 mg Q6H PRN PRN Administration Pain 1-10 Or Fever >100.7 Hydrocodone Bitart/Acetaminophen 1 tablet 12/05/23 22:49 12/14/23 08:46 Hydrocodone Bitartrate/Apap 5/325 Tablet PO 1 tablet Q8H PRN Administration PAIN 4-10 Albuterol Sulfate 2.5 mg 12/05/23 22:06 12/12/23 03:19 Albuterol 2.5 Mg/3 Ml Vial.Neb. INHALATION 2.5 mg Q2H PRN PRN Administration SOB &/OR WHEEZING Albuterol/Ipratropium 3 ml 12/05/23 22:15 12/14/23 07:14 Ipratropium/Albuterol Sulfate 3 Ml Ampul.Neb INHALATION 3 ml Q6HWA.RT DONA Administration Aspirin 81 mg 12/06/23 08:00 12/14/23 08:27 Aspirin E.C. 81 Mg Tablet PO Not Given DAILYCM DONA Budesonide 0.5 mg 12/05/23 22:15 12/14/23 07:14 Budesonide Respules 0.5 Mg/2 Ml Ampul.Neb. INHALATION 0.5 mg Q12H.RT DONA Administration Calamine/Phenol 1 applic 12/06/23 06:00 12/14/23 06:36 Menthol/Lanolin/Calamine/Znox 113 Gm Tube TOPICAL 1 applic TID DONA Administration Protocol Carvedilol 3.125 mg 12/05/23 22:06 12/14/23 08:50 Carvedilol 3.125 Mg Tablet PO 3.125 mg BID DONA Administration Protocol Clopidogrel Bisulfate 75 mg 12/06/23 10:00 12/14/23 08:48 Clopidogrel Bisulfate 75 Mg Tablet PO Not Given DAILY DONA Enoxaparin Sodium 30 mg 12/10/23 10:00 12/14/23 08:49 Enoxaparin 30 Mg/0.3 Ml Syringe SC Not Given DAILY DONA Gabapentin 400 mg 12/05/23 22:06 12/14/23 06:35 Gabapentin 400 Mg Capsule PO Not Given TID DONA Glipizide 5 mg 12/06/23 07:30 12/07/23 08:48 Glipizide 5 Mg Tablet PO Not Given BID@0730,1630 [facility] Glucagon 1 mg 12/05/23 22:06 Glucagon 1 Mg/Ml Syringe IM X1 PRN HYPOGLYCEMIA Protocol Guaifenesin 10 ml 12/13/23 06:32 Guaifenesin 10 Ml Udc (200mg/10ml) PO Q4H PRN PRN COUGH/CONGESTION Dextrose 250 mls @ 0 mls/hr 12/05/23 22:06 12/06/23 16:55 Dextrose 10%-Water IV Infused .Q0M PRN Infusion HYPOGLYCEMIA Protocol As Directed Ampicillin Sodium/Sulbactam 112 mls @ 150 mls/hr 12/13/23 22:00 12/14/23 11:16 Sodium 3 gm/ Sodium Chloride IV Infused Q12 DONA Infusion Insulin Glargine 15 unit 12/11/23 22:00 12/13/23 22:06 Insulin Glargine-Yfgn 100 Unit/Ml Pen SC 15 unit QHS [facility] Administration Insulin Human Lispro 0 unit 12/09/23 22:00 12/14/23 11:13 Insulin Lispro 100 Unit/Ml Insuln.Pen SC Not Given ACHS [facility] Protocol Insulin Human Lispro 6 unit 12/11/23 16:00 12/14/23 11:14 Insulin Lispro 100 Unit/Ml Insuln.Pen SC Not Given TIDAC [facility] Nystatin 500,000 unit 12/12/23 18:00 12/14/23 08:49 Nystatin 500,000 Unit/5 Ml Po.Syringe ([facility]) PO Not Given 4X/DAY [facility] Ondansetron HCl 4 mg 12/05/23 22:06 Ondansetron 4 Mg/2 Ml Vial IV Q8H PRN PRN NAUSEA/VOMITING Prednisone 40 mg 12/12/23 08:00 12/14/23 08:28 Prednisone 20 Mg Tablet PO Not Given BREAKFAST [facility] Rosuvastatin Calcium 40 mg 12/05/23 22:06 12/13/23 22:04 Rosuvastatin Calcium 40 Mg Tablet PO 40 mg QHS [facility] Administration Sertraline HCl 100 mg 12/06/23 10:00 12/14/23 08:49 Sertraline 100 Mg Tablet PO Not Given DAILY [facility] Sodium Chloride 10 - 40 ml 12/05/23 22:18 12/10/23 20:46 0.9% Saline Lock 10 Ml Syringe IV 10 ml UD PRN Administration SALINE FLUSH PFSH Medical History Hearing loss, left Hearing loss, right Anxiety Diabetes Chronic pain Kidney stones Kidney disease Former smoker Sleep apnea COPD (chronic obstructive pulmonary disease) Chest pain Myocardial infarct Hypertension DVT (deep venous thrombosis) Unable to walk Acute kidney injury Home Medications ?Medication ?Instructions ?Recorded ?Last Taken ?Type gabapentin 400 mg capsule 400 mg PO TID NERVE PAIN 08/20/18 12/05/23 History glipizide 5 mg tablet 5 mg PO .BEFORE MEALS DM 08/20/18 12/05/23 History sertraline 50 mg tablet 100 mg PO DAILY DEPRESSION 08/20/18 12/05/23 History carvedilol 3.125 mg tablet 3.125 mg PO BID 08/21/18 12/05/23 Rx clopidogrel 75 mg tablet 75 mg PO DAILY 08/21/18 12/05/23 Rx albuterol 90 mcg/actuation aerosol 90 mcg inhalation .4X A DAY PRN SOB 12/30/22 Unknown History inhaler amlodipine 10 mg tablet 10 mg PO DAILY 12/30/22 Unknown History cholecalciferol (vitamin D3) 25 75 mcg PO DAILY 12/30/22 12/05/23 History mcg (1,000 unit) capsule cyanocobalamin (vitamin B-12) 1,000 mcg PO DAILY 12/30/22 12/05/23 History 1,000 mcg capsule hydrocodone-acetaminophen 5-325mg 1 tab PO TID 12/30/22 12/05/23 History 5mg-325mg insulin glargine 100 unit/mL 50 unit subcut QHS 12/30/22 12/04/23 History subcutaneous solution mometasone 200 mcg/actuation HFA 2 puff inhalation BID 12/30/22 12/05/23 History aerosol inhaler (Asmanex HFA) rosuvastatin 40 mg tablet (Crestor) 40 mg PO QHS 12/30/22 12/04/23 History tiotropium 2.5 mcg-olodaterol 2.5 2 inh inhalation DAILY 12/30/22 12/05/23 History mcg/actuation mist for inhalation (Stiolto Respimat) aspirin 81 mg tablet,delayed 81 mg PO DAILY 12/05/23 12/05/23 History release (Adult Aspirin Regimen) furosemide 40 mg tablet 40 mg PO DAILY 12/05/23 12/05/23 History Allergy/AdvReac Type Severity Reaction Status Date / Time No Known Allergies Allergy Verified 04/27/23 08:45 Surgical History Hx of CABG History of coronary artery stent placement Social History household members: spouse Smoking Status: Former smoker Review of Systems (Anesthesia) ROS Narrative System reviewed and no additional complaints, except as documented.
[2023-12-14] MEDS: Lactated Ringers 1,000 ML 15 ML IV (12:30)
--- NOTE | 2023-12-14 13:06 | PCM.POST.ANE ---
Anesthesia: Postop Eval I Current Vital Signs Temperature: 97.5 F Pulse Rate: 74 Blood Pressure: 119/53 Respiratory Rate: 16 Pulse Ox: 99 Oxygen Delivery Method: Simple Mask Oxygen Flow Rate (L/min): 4 Assessment Airway patent: Yes Spontaneous unlabored respirations: Yes Mental status: Asleep nausea: No Vomiting: No Anesthesia Complication: No Fluid Hydration Crystalloid volume administer (ml): 400 Total IV fluid infused: 400 Progress Note Anesthesia document: Postop Eval 1 completed: Yes
--- NOTE | 2023-12-14 15:11 | PCM.POSTANE2 ---
Anesthesia Postop Eval I Sum Postop Eval Completion status Anesthesia document: Postop Eval 1 completed: Yes Anesthesia Postop Eval I Summary Anesthesia Postop Eval I Summary: Anesthesia Postop Eval I: Assessment Summary Airway patent Yes 12/14/23 13:07 [email or web address] Spontaneous unlabored Yes 12/14/23 13:07 [email or web address] respirations Mental status Asleep 12/14/23 13:07 [email or web address] nausea No 12/14/23 13:07 [email or web address] Vomiting No 12/14/23 13:07 [email or web address] Anesthesia Postop Eval I: Fluid Summary Crystalloid volume administer 400 12/14/23 13:07 [email or web address] (ml) Colloids volume administered ( ml) Blood Product volume administered (ml) Total IV fluid infused 400 12/14/23 13:07 [email or web address] Anesthesia Postop Eval I: Summary Notes Anesthesia Complication No 12/14/23 13:07 [email or web address] Anesthesia Complication Comment: Post-operative progress note Anesthesia: Postop Eval II Evaluation Mental status: Awake Pain Level: 0 nausea: No Vomiting: No
--- NOTE | 2023-12-14 15:30 | EGD_PTH ---
PATIENT: JONAH ALEXANDRA LOC: [facility] U#:[id number] AGE/SX: 78/M ROOM: [facility] RE12/05/[address]: Dr. Roberth Stevens MD : 1945 BED: 1 DIS: 12/15/2023 SPEC #: [id number] RECD: 12/14/23 16:23 STATUS: DEIDRE REJess #: [id number] NICHOLAS: 12/14/23 15:[address]: Frederick Chew DEPT: SURGICAL PATHOLOGY RECD BY: Cynthia Clark ENTERED: 12/15/23 07:13 SP TYPE: EGD BIOPSY OTHR DR: DO Dr. Mich Vitale MD Dr. Nana Yaa Koram, MD Dr. Nagapradee Nagajothi, MD Dr. Prakash Chand, MD Tissues: A - Stomach, NOS B - Esophagus, NOS Procedures: Special Stain Group I Surgery Specimen Level IV Alcian Blue/PAS (control) Comments: @ Ordering doctor for SUIV edited from to @ rhina SALGUERO at 12/15/23 08 @ Submitting doctor edited from to @ rhina SALGUERO at 12/15/23 0803 HEADER OPERATION: EGD with biopsy PRE-OP DIAGNOSIS: Dysphagia TISSUE SUBMITTED: A- Stomach biopsy, B- Random esophagus biopsy MICROSCOPIC DIAGNOSIS A. Gastric mucosa, biopsy: Chronic gastritis, moderately severe with focal active gastritis. Intestinal metaplasia. No evidence of dysplasia. See comment. B. Esophagus, random biopsy: Gastroesophageal junctional mucosa with mild chronic inflammation. No evidence of goblet cell metaplasia. See comment. MONROE/ 12/18/2023 COMMENT A. Immunohistochemistry ([id number]) for P53 and Ki-67 will be performed and results will be reported separately. Alcian blue/PAS stain with matched control supports the above diagnosis. B. Alcian blue/PAS stain with matched control supports the above diagnosis. MICROSCOPIC DESCRIPTION Slides are reviewed. GROSS DESCRIPTION A. Received in fixative is one container labeled with the patient's name and designated Stomach biopsy. The specimen consists of multiple irregular fragments of light waller soft tissue that in aggregate measure 1.5 x 0.5 x 0.1 cm. The specimen is totally submitted in one cassette. B. Received in fixative is one container labeled with the patient's name and designated Random esophagus biopsy. The specimen consists of multiple irregular fragments of light waller soft tissue that in aggregate measure 1.0 x 0.5 x 0.1 cm. The specimen is totally submitted in one cassette. ANUEL/ 12/15/2023 TC:3 CPT:97288e9,71501e7
[2023-12-14 16:56] LABS: Bedside Glucose 127 mg/dL (74-106)
[2023-12-14] MEDS: Nystatin 500,000 UNIT/5 ML PO.SYRINGE (WCH) 500000 UNIT PO ×2 (17:16→22:59)
[2023-12-14] MEDS: Acetaminophen 325 MG Tablet 650 MG PO (22:55)
[2023-12-14] MEDS: 0.9% Saline Lock 10 ML Syringe IV (22:55)
[2023-12-14] MEDS: Gabapentin 400 MG Capsule PO (22:56)
[2023-12-14] MEDS: ROSUVASTATIN CALCIUM 40 MG TABLET PO (22:57)
[2023-12-14] MEDS: Insulin Lispro 100 UNIT/ML INSULN.PEN SC (22:58)
[2023-12-14] MEDS: Insulin Glargine-YFGN 100 UNIT/ML Pen 15 UNIT SC (22:59)
[2023-12-15] VITALS (10 sets, daily range): BP systolic 97–106; BP diastolic 48–82; PULSE 79–88; RESP 18–20; TEMP 36.5–36.6; O2SAT 86–98
[2023-12-15 00:35] LABS: Bedside Glucose 381 mg/dL (74-106)
[2023-12-15] MEDS: Menthol/Lanolin/Calamine/Znox 113 GM Tube 1 APPLIC TOPICAL ×2 (04:58→15:00)
[2023-12-15] MEDS: HYDROcodone Bitartrate/Apap 5/325 Tablet PO ×2 (05:00→15:00)
[2023-12-15] MEDS: Gabapentin 400 MG Capsule PO ×2 (05:00→15:00)
[2023-12-15 06:09] LABS: Absolute Lymphocyte Count 1.98 X10^3/uL (0.83-4.51); Absolute Neutrophil Count 9.1 X10^3/uL (2.0-7.7); Basophil# 0.02 X10^3/uL; Basophil% 0.2 % (0-1); Eosinophil# 0.18 X10^3/uL; Eosinophils% 1.4 % (0-5); Hematocrit 48.4 % (40-54); Hemoglobin 14.9 g/dL (13.0-16.5); Lymphocyte # 1.98 X10^3/ul (0.83-4.51); Lymphocyte % 15.9 % (19-41); Mean Corp Hgb Conc 30.8 g/dL (32-36); Mean Corpuscular Hgb 29.1 pg (27.0-32.0); Mean Corpuscular Volume 94.5 fL (80-94); Mean Platelet Vol. 11.5 fl (6.2-12.0); Monocyte# 1.13 X10^3/uL; Monocyte% 9.1 % (0-10); NRBC Flagged by Analyzer 0 % (0-5); Neutrophil # 9.07 X10^3/uL (2.7-7.7); Neutrophil % 72.8 % (47-70); Platelet Count 163 K/mm3 (150-450); RBC Distribution Width CV 14.7 % (11.6-14.6); RBC Distribution Width SD 51.5 fl (35.1-43.9); Red Blood Count 5.12 M/mm3 (4.6-6.2); White Blood Count 12.5 K/mm3 (4.4-11.0)
[2023-12-15 06:49] LABS: Anion Gap 6 (5-15); BUN 63 mg/dL (7-18); BUN/Creat Ratio 34.1 RATIO (10-20); Calcium,Total 9.2 mg/dL (8.5-10.1); Chloride 99 mmol/L (98-107); Creatinine, Serum 1.85 mg/dL (0.70-1.30); EST Glomerular Filtration Rate 38 mL/min (>60); Est Glom Filt Rate - Afr Amer 46 mL/min (>60); Estimated Creatinine Clearance 29.55 ml/min; Glucose 146 mg/dL (74-106); Potassium 3.9 mmol/L (3.5-5.1); Sodium Level 137 mmol/L (136-145)
[2023-12-15] MEDS: Ipratropium/Albuterol Sulfate 3 ML AMPUL.NEB INHALATION ×2 (06:59→12:37)
[2023-12-15] MEDS: Budesonide Respules 0.5 MG/2 ML AMPUL.NEB. INHALATION (06:59)
[2023-12-15] MEDS: predniSONE 20 MG Tablet 40 MG PO (08:57)
[2023-12-15] MEDS: Carvedilol 3.125 MG TABLET PO (08:57)
[2023-12-15] MEDS: Aspirin E.C. 81 MG Tablet PO (08:57)
[2023-12-15] MEDS: Clopidogrel Bisulfate 75 MG Tablet PO (08:57)
[2023-12-15] MEDS: Nystatin 500,000 UNIT/5 ML PO.SYRINGE (WCH) 500000 UNIT PO (08:58)
[2023-12-15] MEDS: Enoxaparin 30 MG/0.3 ML Syringe SC (08:58)
[2023-12-15] MEDS: Sertraline 100 MG Tablet PO (08:58)
[2023-12-15] MEDS: Ampicillin/Sulbactam 3 GM in 0.9% Normal Saline (100mL MB+) 100 ML IV (09:21)
--- NOTE | 2023-12-15 09:58 | DCINST_ITS ---
Discharge Instructions Diet Discharge Diet: 8 Cup Fluid Restriction and 2000 mg Sodium Diet Activity Discharge Activity: Return to Normal Activity Weight Bearing Status: Weight bearing as tolerated Dressing / Incision Call your doctor if you observe: Fever of 101 or Higher, Coldness, Increased Pain, Numbness or Tingling, Change in Color, Inability to urinate, Inability to have a bowel movement, Shortness of breath, Dizziness, Fainting spells, Swelling in the ankles, Chest pain, Prolonged hiccupping, Increased palpitations (irregular heartbeat) and Calf discomfort Follow Up Care When: IN 2 WEEKS Test Results: Test results from this visit will be discussed in further detail at your follow- up appointment, if applicable. Discharge Plan Admission Admit Date/Time: 12/05/23 19:54 Primary Reason for Your Visit: Acute on chronic heart failure Attending Provider: Roberth Stevens Primary Care Provider: Mich Rosales Consulting Providers: Estephanie Muniz; Bro Redd; Rubina Townsend Discharge Orders/Prescriptions Prescriptions: New prednisone 20 mg Tablet 40 mg PO BREAKFAST 5 Days Qty: 10 0RF insulin lispro [Humalog KwikPen Insulin] 100 unit/mL Insulin Pen 5 unit subcut TIDAC 30 Days Qty: 15 3RF Rx Instructions: Hold if glucose less than 130 mg/dl insulin lispro [Humalog KwikPen Insulin] 100 unit/mL Insulin Pen See Protocol subcut ACHS Qty: 0 0RF Protocol: 3. Sliding Scale Insulin Med Dosing Condition: 150-189 mg/dl = 1 unit Condition: 190-229 mg/dl = 2 units Condition: 230-269 mg/dl = 3 units Condition: 270-309 mg/dl = 4 units Condition: 310-349 mg/dl = 5 units Condition: 350-399 mg/dl = 6 units Condition: 400-449 mg/dl = 7 units Condition: Greater than 449 call physician Protocol Text: Suggested for: - Patients on Total Daily Insulin Dose of 37-55 units - Obese, infected, or steroid patients MEDIUM DOSING ALGORITHIM furosemide 20 mg tablet 20 mg PO .evening 30 Days Qty: 30 2RF Rx Instructions: Take extra 20 mg dose at 5 PM for increased leg swelling or weight gain 5 pounds in 1 week. amoxicillin-pot clavulanate [Augmentin] 500-125 mg tablet 1 tab PO BID 5 Days Qty: 10 0RF Continued gabapentin 400 MG capsule 400 mg PO TID sertraline 50 MG tablet 100 mg PO DAILY glipizide 5 MG tablet 5 mg PO .BEFORE MEALS clopidogrel 75 MG tablet 75 mg PO DAILY 0RF carvedilol 3.125 MG tablet 3.125 mg PO BID 0RF Asmanex HFA 200 mcg/actuation HFA aerosol inhaler 2 puff inhalation BID Stiolto Respimat 2.5-2.5 mcg/actuation mist 2 inh inhalation DAILY rosuvastatin [Crestor] 40 mg tablet 40 mg PO QHS albuterol 90 mcg/actuation aerosol 90 mcg inhalation .4X A DAY PRN (Reason: SOB) cyanocobalamin (vitamin B-12) 1,000 mcg capsule 1,000 mcg PO DAILY cholecalciferol (vitamin D3) 25 mcg (1,000 unit) capsule 75 mcg PO DAILY hydrocodone-acetaminophen 5-325 mg tablet 1 tab PO TID Patient Comments: Take 1 tablet by mouth every 8 hours as needed for pain. furosemide 40 mg tablet 40 mg PO DAILY aspirin [Adult Aspirin Regimen] 81 mg tablet,delayed release (DR/EC) 81 mg PO DAILY Changed insulin glargine 100 unit/mL solution 18 unit subcut QHS 30 Days Qty: 0 0RF Rx Instructions: Hold if glucose less than 130 mg/dl Held amlodipine 10 mg tablet 10 mg PO DAILY Hold Instructions: Hold amlodipine for 2 weeks and might need decreased dose, 2.5 mg daily or be discontinued. Referrals / Follow Up: Prashanth Wood DO [Med Staff - Active Staff] - Within 2 Weeks (For hypoxia from heart failure.) Derrell Vann MD [Med Staff - Consulting] - Within 2 Weeks Mich Rosales MD [Primary Care Provider] - Within 1 Week Lokesh Solorio MD [Med Staff - Active Staff] - Within 2 Weeks (For heart failure) Disposition Disposition (needs filled in before D/C Order can be placed): Home Health Service
[2023-12-15] MEDS: Insulin Lispro 100 UNIT/ML INSULN.PEN SC (11:30)
[2023-12-15] MEDS: Furosemide 40 MG/4 ML Vial IV (11:31)
[2023-12-15] MEDS: Insulin Lispro 100 UNIT/ML INSULN.PEN 6 UNIT SC (11:31)
[2023-12-15 11:57] LABS: Bedside Glucose 307 mg/dL (74-106)
--- NOTE | 2023-12-15 13:35 | DS.PCM_ITS ---
Providers Date of Admission: 12/05/23 Date of Discharge: 12/15/23 Primary Care Physician: Dr. Mich Rosales MD Consultations 12/05/23 22:06 Consult: Cardiology Routine Consulting Provider: Estephanie Muniz Reason for Consult: CHF EMERGENT Consult: No Notified: Yes Date Notified: 12/05/23 Time Notified: 20:00 Method of Notification: Text Reason For Visit: CHF EXAC Diagnosis Discharge Diagnosis (1) CHF exacerbation: Status: Chronic Code(s): I50.9 - Heart failure, unspecified Qualifiers: Heart failure type: systolic Qualified Code(s): I50.23 - Acute on chronic systolic (congestive) heart failure (2) Non-ST elevated myocardial infarction: Status: Acute Code(s): I21.4 - Non-ST elevation (NSTEMI) myocardial infarction Plan #Acute hypoxic and hypercapnic respiratory failure due to acute heart failure with reduced EF, left upper lobe pneumonia possible due to Streptococcus pneumonia * Now on Airvo and is on 50 L/min at FiO2 of 54%. * Chest x-ray showed bilateral pleural effusions and evidence of fluid overload. * 2D echo ordered showed EF of 20 to 25% and severe global hypokinesis of left ventricle ventricle with evidence of diastolic dysfunction and mildly dilated left ventricle. Now off IV Lasix drip and on IV lasix 40mg bid. * Breathing treatments with bronchodilators. Titrate oxygen to maintain saturation above 90%. * Cardiology on board. switched from lasix drip to IV lasix. * Pulmonology on board. 12/09: Lasix increased to 40 every 12 hourly. Creatinine around 2.05. Bilateral leg swelling. 12/10: Creatinine is improving. Continue Lasix. On 7 L of high flow oxygen. Chest CT scan shows dense consolidation in the posterior aspect of the lingular segment of the left upper lobe with narrowing of the intermediate stem bronchus with suspicion of left hilar mass leading to post obstructive pneumonitis. [employer] Roll Maker note reviewed. Mycoplasma serology pending. 12/11: Creatinine went up from 1.87-1.91 but seems still on the baseline. Continue IV Lasix 40 mg daily. Aggressive incentive spirometry. Patient on IV Zosyn started on 12/11 by fitter/welder. Oxygen improving, 5 L/min 12/12: Probably chronic hypercapnia. Due to decompensated heart failure and postobstructive pneumonia. After discharge, patient will need to follow-up in pulmonary clinic and require EBUS with biopsy. Discussed with the fitter/welder. Urine antigen positive for Streptococcus pneumonia. Modified barium swallow showed silent aspiration of thin liquid. Recommended nectar thick full liquid diet due to poor esophageal clearance of pudding and liquids. Therefore probably patient also has aspiration pneumonia. Currently on Zosyn will narrow down to Unasyn 12/13: Bicarb and creatinine is better. Patient on 3 L of oxygen. Lasix 1 dose 40 mg about 10 AM. Blood pressure borderline 95/74 in AM. Moderate oropharyngeal and esophageal dysphagia: Modified barium swallow study shows retention throughout the esophagus. Patient also has diabetic gastroparesis and induced reflux disease. Plan for EGD. 12/14: On 5 L of oxygen. Lasix 40 mg IV 1 dose was given. Home oxygen qualification test ordered. Patient was on furosemide 40 mg daily at home increased to 40 mg in a.m. and 20 mg in evening. Prescription given. Advised to take extra 20 mg dose at 5 PM for increased leg swelling or weight gain 5 pounds in 1 week. The patient had EGD for dysphagia. EGD procedure note not in the EMR chart. Follow-up in cardiology and pulmonary clinic. #Non-STEMI: * Initial troponin was elevated and trended up somewhat with peak of 192. * On aspirin as well as high intensity statin. * This may also be due to troponin leak from the respiratory failure as patient denies any chest pain. Cardiology on board. Await recs. * 2D echo as above * heparin drip discontinued 12/14: Patient was seen by sr. director product management. Increased troponin was thought to be due to type II TX secondary to hypoxia and CHF exacerbation. Advised follow-up in cardiology clinic for outpatient stress test. # Acute on chronic metabolic alkalosis Usually his bicarb is around 33. Patient bicarb increased to 39. Sodium potassium in normal range. Anion gap low 2. 12/14: Bicarb 32 on baseline. Increases with Lasix. #Type 2 diabetes mellitus: On Lantus and glipizide. Insulin sliding scale. Accu-Cheks ACHS. 12/09: Glucose level is high, 250-350. A1c 7.3. Started on scheduled Humalog insulin. 12/10: Humalog and Lantus insulin dosages were increased 12/11: Glucose 135 in the morning. Will continue same regimen of Accu-Chek before meals and at bedtime with Humalog sliding scale coverage and hypoglycemia protocol. 12/14: Glucose in the range of 150-200. Patient on glipizide 5 mg twice daily at home resumed. Lantus and Humalog insulin increased and optimized accordingly. Follow-up with PCP for better control of diabetes. #Depression: On sertraline #Hyperlipidemia: On statin CAD: On aspirin, statin and Plavix #CKD stage IV: * Patient used to be on dialysis but this was Discontinued in April 2024 per nephrology. * Monitor kidney function. Creatinine is 2.10 today down from 2.33 on admission. His baseline seems to be around 3-3.4 12/11: Creatinine on baseline. 12/12: Hold the Lasix. Creatinine also increased to 2.28. Monitor kidney function 12/13: Creatinine on baseline. 12/14: Creatinine on baseline 1.85. I talked to car dealer Gege LUNDBERG and gave a clinical update regarding this hospital stay. Advised follow-up with nephrology clinic in 2 weeks. I also updated about changing Lasix regimen, 40 mg in a.m. and 20 mg in the p.m. and follow-up with electrolytes and kidney functions closely DVT prophylaxis: Subcu heparin. Heparin drip discontinued per cardiology. CODE STATUS: Full code Clinical Impression(s) from Imaging Studies Chest X-Ray 12/05/23 18:18 IMPRESSION: Bilateral effusions with patchy bilateral airspace disease which may represent edema. Electronically Signed: Kris Burdick MD at 18:55 EDT , Echocardiogram 12/05/23 22:06 Interpretation Summary Mildly dilated left ventricle. The estimated ejection fraction is 20-25 %. There is severe global hypokinesis of the left ventricle. There is evidence of diastolic dysfunction. Ordering Physician: Bro Redd Referring Physician: MD Connie Mich Performed By: Olga Lambert [facility] Chest X-Ray 12/07/23 12:30 IMPRESSION: Mild improvement in the lung aeration. Residual bilateral pleural effusions and patchy infiltrates worse in the left hemithorax. The CHF has improved. Chest CT 12/11/23 13:15 IMPRESSION: Mediastinal lymphadenopathy. Small left pleural effusion with dense consolidation in the posterior aspect of the lingular segment of the left upper lobe with narrowing of the intermediate stem bronchus Prominence of both pulmonary arteries suggestive of a pulmonary hypertension.. Left hilar mass with postobstructive pneumonitis should BE ruled out. Correlation with a PET scan is recommended. Electronically Signed: Randolph Joyce MD at 14:02 EDT , Medications at Discharge Home Medications gabapentin 400 mg capsule 400 mg PO TID NERVE PAIN 08/20/18 glipizide 5 mg tablet 5 mg PO .BEFORE MEALS DM 08/20/18 sertraline 50 mg tablet 100 mg PO DAILY DEPRESSION 08/20/18 carvedilol 3.125 mg tablet 3.125 mg PO BID 08/21/18 clopidogrel 75 mg tablet 75 mg PO DAILY 08/21/18 albuterol 90 mcg/actuation aerosol inhaler 90 mcg inhalation .4X A DAY PRN SOB 12/30/22 amlodipine 10 mg tablet 10 mg PO DAILY 12/30/22 cholecalciferol (vitamin D3) 25 mcg (1,000 unit) capsule 75 mcg PO DAILY 12/30/22 cyanocobalamin (vitamin B-12) 1,000 mcg capsule 1,000 mcg PO DAILY 12/30/22 hydrocodone-acetaminophen 5-325mg 5mg-325mg 1 tab PO TID 12/30/22 mometasone 200 mcg/actuation HFA aerosol inhaler (Asmanex HFA) 2 puff inhalation BID 12/30/22 rosuvastatin 40 mg tablet (Crestor) 40 mg PO QHS 12/30/22 tiotropium 2.5 mcg-olodaterol 2.5 mcg/actuation mist for inhalation (Stiolto Respimat) 2 inh inhalation DAILY 12/30/22 aspirin 81 mg tablet,delayed release (Adult Aspirin Regimen) 81 mg PO DAILY 12/05/23 furosemide 40 mg tablet 40 mg PO DAILY 12/05/23 amoxicillin 500 mg-potassium clavulanate 125 mg tablet (Augmentin) 1 tab PO BID 5 days #10 tabs 12/15/23 furosemide 20 mg tablet 20 mg PO .evening 1 month #30 tabs 12/15/23 insulin glargine 100 unit/mL subcutaneous solution 18 unit (0.18 mL) subcut QHS 30 days #0 mL 12/15/23 insulin lispro 100 unit/mL subcutaneous pen (Humalog KwikPen (U-100) Insulin) 5 unit (0.05 mL) subcut TIDAC 1 month #15 mL 12/15/23 insulin lispro 100 unit/mL subcutaneous pen (Humalog KwikPen (U-100) Insulin) See Protocol subcut ACHS #0 mL 12/15/23 prednisone 20 mg tablet 40 mg (2 x 20 mg) PO BREAKFAST 5 days #10 tabs 12/15/23 Weight / BMI Weight Weight: 149 lb 14.629 oz Body Mass Index (BMI) 24.9 ABG / Lab / Microbiology Data 12/15/23 05:20 12/15/23 05:20 Laboratory: Laboratory Results - last 24 hr 12/14/23 11:11: POC Glucose 151 H 12/14/23 16:20: POC Glucose 127 H 12/14/23 22:54: POC Glucose 381 H 12/15/23 05:20: WBC 12.5 H, RBC 5.12, Hgb 14.9, Hct 48.4, MCV 94.5 H, MCH 29.1, MCHC 30.8 L, RDW Std Deviation 51.5 H, RDW Coeff of Audi 14.7 H, Plt Count 163, MPV 11.5, Immature Gran % (Auto) 0.600, Neut % (Auto) 72.8 H, Lymph % (Auto) 15.9 L, [place] % (Auto) 9.1, Eos % (Auto) 1.4, Baso % (Auto) 0.2, Absolute Neuts (auto) 9.1 H, Absolute Lymphs (auto) 1.98, Nucleated RBC % 0, Sodium 137, Potassium 3.9, Chloride 99, Carbon Dioxide 32.0, Anion Gap 6, BUN 63 H, C reatinine 1.85 H, Estim Creat Clear Calc 29.55, Est GFR (MDRD) Af Amer 46 L, Est GFR (MDRD) Non-Af 38 L, BUN/Creatinine Ratio 34.1 H, Glucose 146 H, Calcium 9.2 Microbiology: Microbiology 12/11/23 15:15 Urine, Clean Catch Streptococcus pneumoniae Antigen (M - Final Streptococcus pneumonia Ag 12/11/23 15:15 Urine, Clean Catch Legionella Antigen - Final 12/07/23 10:49 Mucosa - Nasopharyngeal Respiratory Panel (PCR) - Final 12/07/23 10:49 Mucosa - Nasopharyngeal Coronavirus COVID-19 PCR - Final Meaningful Use Info Meaningful Use Meaningful Use Diagnoses (Choose all that apply): None applicable Ischemic Stroke Statin Dosing Therapy Reference: STATIN DOSE THERAPY REFERENCE: * Patients > 75 years receive moderate or high dose statin therapy. * Patients 75 years or YOUNGER should receive HIGH intensity statin dose unless contraindicated. You will be required to document reason for non-treatment if statin daily dose does not meet guidelines. HIGH DOSE STATIN THERAPY DAILY Atorvastatin > than or = to 40 mg Rosuvastatin > than or = to 20 mg Amlodipine + Atorvastatin > than or = to 2.5/40 mg Ezetimibe + Simvastatin 10/80 mg Simvastatin 80mg Discharge Plan Admission Admit Date/Time: 12/05/23 19:54 Primary Reason for Your Visit: Acute on chronic heart failure Attending Provider: Roberth Stevens Primary Care Provider: Mich Rosales Consulting Providers: Estephanie Muniz; Bro Redd; Rubina Townsend Instructions Additional Instructions / Restrictions: Follow-up outpatient speech therapy, PT and OT. Discharge Orders/Prescriptions Prescriptions: New prednisone 20 mg Tablet 40 mg PO BREAKFAST 5 Days Qty: 10 0RF insulin lispro [Humalog KwikPen Insulin] 100 unit/mL Insulin Pen 5 unit subcut TIDAC 30 Days Qty: 15 3RF Rx Instructions: Hold if glucose less than 130 mg/dl insulin lispro [Humalog KwikPen Insulin] 100 unit/mL Insulin Pen See Protocol subcut ACHS Qty: 0 0RF Protocol: 3. Sliding Scale Insulin Med Dosing Condition: 150-189 mg/dl = 1 unit Condition: 190-229 mg/dl = 2 units Condition: 230-269 mg/dl = 3 units Condition: 270-309 mg/dl = 4 units Condition: 310-349 mg/dl = 5 units Condition: 350-399 mg/dl = 6 units Condition: 400-449 mg/dl = 7 units Condition: Greater than 449 call physician Protocol Text: Suggested for: - Patients on Total Daily Insulin Dose of 37-55 units - Obese, infected, or steroid patients MEDIUM DOSING ALGORITHIM furosemide 20 mg tablet 20 mg PO .evening 30 Days Qty: 30 2RF Rx Instructions: Take extra 20 mg dose at 5 PM for increased leg swelling or weight gain 5 pounds in 1 week. amoxicillin-pot clavulanate [Augmentin] 500-125 mg tablet 1 tab PO BID 5 Days Qty: 10 0RF Continued gabapentin 400 MG capsule 400 mg PO TID sertraline 50 MG tablet 100 mg PO DAILY glipizide 5 MG tablet 5 mg PO .BEFORE MEALS clopidogrel 75 MG tablet 75 mg PO DAILY 0RF carvedilol 3.125 MG tablet 3.125 mg PO BID 0RF Asmanex HFA 200 mcg/actuation HFA aerosol inhaler 2 puff inhalation BID Stiolto Respimat 2.5-2.5 mcg/actuation mist 2 inh inhalation DAILY rosuvastatin [Crestor] 40 mg tablet 40 mg PO QHS albuterol 90 mcg/actuation aerosol 90 mcg inhalation .4X A DAY PRN (Reason: SOB) cyanocobalamin (vitamin B-12) 1,000 mcg capsule 1,000 mcg PO DAILY cholecalciferol (vitamin D3) 25 mcg (1,000 unit) capsule 75 mcg PO DAILY hydrocodone-acetaminophen 5-325 mg tablet 1 tab PO TID Patient Comments: Take 1 tablet by mouth every 8 hours as needed for pain. furosemide 40 mg tablet 40 mg PO DAILY aspirin [Adult Aspirin Regimen] 81 mg tablet,delayed release (DR/EC) 81 mg PO DAILY Changed insulin glargine 100 unit/mL solution 18 unit subcut QHS 30 Days Qty: 0 0RF Rx Instructions: Hold if glucose less than 130 mg/dl Held amlodipine 10 mg tablet 10 mg PO DAILY Hold Instructions: Hold amlodipine for 2 weeks and might need decreased dose, 2.5 mg daily or be discontinued. Referrals / Follow Up: Prashanth Wood DO [Med Staff - Active Staff] - Within 2 Weeks (For hypoxia from heart failure.) Derrell Vann MD [Med Staff - Consulting] - Within 2 Weeks Mich Rosales MD [Primary Care Provider] - Within 1 Week Lokesh Solorio MD [Med Staff - Active Staff] - Within 2 Weeks (For heart failure) Frederick Chew DO [Med Staff - Active Staff] - Within 1 Month Disposition Disposition (needs filled in before D/C Order can be placed): Home Health Service Charges/Coding Visit Charges Inpatient E&M: 59577 Disch Hosp >30min
--- NOTE | 2023-12-15 13:46 | CASEMGMT ---
Patient has order for discharge. Patient will need home oxygen at discharge. Script received and referral sent to [facility] via [employer]. REGLA GUTIERREZ updated discharge manager business planning. REGLA GUTIERREZ in to discuss discharge with patient. Notified of oxygen and HHC setup. Patient denied further needs or concerns. Patient had no further questions. Discharge plan updated.
--- NOTE | 2023-12-15 13:49 | CASEMGMT ---
Discharge Planning Discharge instructions and summary sent to [facility] via [employer]. Rebecca Sloan DC Planning asst.
--- NOTE | 2023-12-15 14:23 | OP.EGD_ITS ---
Patient Name: Rodrigo Mackey Procedure Date: 12/14/2023 12:33 PM Date of : 1945 Age: 78 Procedure: Upper GI endoscopy Indications: Dysphagia Providers: Frederick Chew DO Medicines: Monitored Anesthesia Care Patient Profile: This is a 78 year old male. Refer to note in patient chart for documentation of history and physical. Patient has symptoms of acute dysphagia. Complications: No immediate complications. Procedure: Pre-Anesthesia Assessment: - Prior to the procedure, a History and Physical was performed, and patient medications and allergies were reviewed. The risks and benefits of the procedure and the sedation options and risks were discussed with the patient. All questions were answered and informed consent was obtained. Patient identification and proposed procedure were verified by the physician in the pre-procedure area. Mental Status Examination: alert and oriented. Airway Examination: normal oropharyngeal airway and neck mobility. Respiratory Examination: clear to auscultation. CV Examination: normal. Prophylactic Antibiotics: The patient does not require prophylactic antibiotics. Prior Anticoagulants: The patient has taken no anticoagulant or antiplatelet agents. ASA Grade Assessment: II - A patient with mild systemic disease. After reviewing the risks and benefits, the patient was deemed in satisfactory condition to undergo the procedure. The anesthesia plan was to use monitored anesthesia care (MAC). This assessment was completed before the administration of sedation. After obtaining informed consent, the endoscope was passed under direct vision. Throughout the procedure, the patient's blood pressure, pulse, and oxygen saturations were monitored continuously. The gastroscope was introduced through the mouth, and advanced to the third part of duodenum. The upper GI endoscopy was accomplished without difficulty. The patient tolerated the procedure well. Scope In: 12:45:55 PM Scope Out: 12:54:11 PM Total Procedure Duration Time 0 hours 8 minutes 16 seconds Findings: One benign-appearing, intrinsic moderate stenosis was found 20 to 23 cm from the incisors. The stenosis was traversed. A guidewire was placed and the scope was withdrawn. Dilation was performed with a Savary dilator with no resistance at 54 Fr. The dilation site was examined and showed moderate mucosal disruption. Estimated blood loss was minimal. LA Grade A (one or more mucosal breaks less than 5 mm, not extending between tops of 2 mucosal folds) esophagitis with no bleeding was found 38 to 40 cm from the incisors. Biopsies were taken with a cold forceps for histology. Verification of patient identification for the specimen was done. Estimated blood loss was minimal. A medium-sized hiatal hernia was present. Localized mild inflammation characterized by erythema was found in the gastric antrum. Biopsies were taken with a cold forceps for histology. Verification of patient identification for the specimen was done. Estimated blood loss was minimal. The second portion of the duodenum was normal. Impression: - Benign-appearing esophageal stenosis. Dilated. - LA Grade A reflux esophagitis with no bleeding. Biopsied. - Medium-sized hiatal hernia. - Chronic gastritis. Biopsied. - Normal second portion of the duodenum. Recommendation: - Discharge patient to home. - Resume previous diet. - Continue present medications. - Await pathology results. - Use Prilosec (omeprazole) 40 mg PO BID for 12 weeks. Procedure Code(s): --- Professional --- 71365, Esophagogastroduodenoscopy, flexible, transoral; with insertion of guide wire followed by passage of dilator(s) through esophagus over guide wire 67833, 59,51, Esophagogastroduodenoscopy, flexible, transoral; with biopsy, single or multiple CPT copyright 2021 [employer]. All rights reserved. The codes documented in this report are preliminary and upon international bank manager review may be revised to meet current compliance requirements. Frederick Chew DO 12/15/2023 2:23:13 PM This report has been signed electronically. Number of Addenda: 0 Note Initiated On: 12/14/2023 12:33 PM
--- NOTE | 2023-12-15 14:23 | OP.CCLET_ITS ---
12/15/2023 Mich Rosales [address] [place] [address] Re : Upper GI endoscopy procedure for [facility] Dear Dr. Rosales This procedure was performed on December. My impressions and recommendations are as follows: Impressions : - Benign-appearing esophageal stenosis. Dilated. - LA Grade A reflux esophagitis with no bleeding. Biopsied. - Medium-sized hiatal hernia. - Chronic gastritis. Biopsied. - Normal second portion of the duodenum. Recommendations : - Discharge patient to home. - Resume previous diet. - Continue present medications. - Await pathology results. - Use Prilosec (omeprazole) 40 mg PO BID for 12 weeks. My findings are described in the full procedure note, which is enclosed. If I can be of further assistance, please feel free to contact me at . Sincerely, Frederick Friend, 12/15/2023 2:23:13 PM This report has been signed electronically.
== END 2023-12-15 18:11 | disposition home health service (06) | DRG 280 ==
LOC: ED 20:20 → PCU 20:44
PROVIDERS: Internal Medicine; Internal Medicine Critical Care Medicine; Internal Medicine Gastroenterology; Student in an Organized Health Care Education/Training Program; Emergency Provider Emergency Medicine; PCP Family Medicine; Visit Provider Internal Medicine
PROC: 0DJ08ZZ Inspection of Upper Intestinal Tract, Via Natural or Artificial Opening Endoscopic (ICD-10-PCS; CPT 43235; principal; 2023-12-14 15:25)
DX: I13.0 Hypertensive heart and chronic kidney disease with heart failure and stage 1 through stage 4 chronic kidney disease, or unspecified chronic kidney disease (principal); I21.A1 Myocardial infarction type 2; J96.01 Acute respiratory failure with hypoxia; J69.0 Pneumonitis due to inhalation of food and vomit; J15.4 Pneumonia due to other streptococci; I50.23 Acute on chronic systolic (congestive) heart failure; J96.02 Acute respiratory failure with hypercapnia; E87.3 Alkalosis; J90 Pleural effusion, not elsewhere classified; N18.4 Chronic kidney disease, stage 4 (severe); E11.22 Type 2 diabetes mellitus with diabetic chronic kidney disease; J44.9 Chronic obstructive pulmonary disease, unspecified; F32.A Depression, unspecified; Z79.4 Long term (current) use of insulin; I25.10 Atherosclerotic heart disease of native coronary artery without angina pectoris; E78.5 Hyperlipidemia, unspecified; E11.43 Type 2 diabetes mellitus with diabetic autonomic (poly)neuropathy; K44.9 Diaphragmatic hernia without obstruction or gangrene; K22.2 Esophageal obstruction; K29.50 Unspecified chronic gastritis without bleeding; K31.84 Gastroparesis; Z79.02 Long term (current) use of antithrombotics/antiplatelets; Z79.82 Long term (current) use of aspirin; Z87.891 Personal history of nicotine dependence; Z79.84 Long term (current) use of oral hypoglycemic drugs; Z95.5 Presence of coronary angioplasty implant and graft; G89.29 Other chronic pain; Z79.891 Long term (current) use of opiate analgesic; R13.10 Dysphagia, unspecified
CPT/HCPCS: 36415; 36600; 51702; 71045; 71250; 74230; 80048; 80053; 80061; 82803; 82962; 83036; 83605; 83880; 84145; 84484; 85025; 85027; 85610; 85730; 86738; 87449; 87633; 87635; 88305; 88312; 88341; 88342; 92526; 92611; 92612; 93005; 93306; 94003; 94640; 94660; 94668; 94762; 97110; 97162; 97165; 97530; 97535; 97802; 97803; 99252; 99285; J7120; Q9957; A4216; C1769; C8929; G0463; J0295; J1940; J2405; J7799

== ENCOUNTER 2023-12-31 11:25 | Inpatient (IN) | payer OTHER, SELFPAY ==
[2023-12-31] VITALS (23 sets, daily range): BP systolic 100–138; BP diastolic 49–89; PULSE 82–100; RESP 12–24; TEMP 36.3–37; O2SAT 87–98; BMI 23.4; BMI 25.0
--- NOTE | 2023-12-31 11:40 | EKG12_ITS ---
Test Reason : SOB Blood Pressure : / mmHG Vent. Rate : 095 BPM Atrial Rate : 095 BPM P-R Int : 158 ms QRS Dur : 152 ms QT Int : 378 ms P-R-T Axes : 075 037 063 degrees QTc Int : 475 ms Sinus rhythm with occasional Premature ventricular complexes Left bundle branch block Abnormal ECG Confirmed by Lokesh Solorio ([id number]), purchase request editor VIRGILIO RINALDI ([id number]) on 01/01/2024 10:59:27 AM Referred By: Confirmed By:Lokesh Solorio
--- NOTE | 2023-12-31 11:48 | EDS_ITS ---
HPI <TAMIKA Lindsey - Last Filed: 12/31/23 18:31> History of Present Illness Chief Complaint: Fatigue Narrative Narrative: Patient presenting today with shortness of breath he has had over the last 2 days that has increasingly been getting worse. He has been wheezing at home and has had a productive cough with purulent sputum over the last week. He reports that he was recently discharged here on 12/15/2023 due to acute hypoxic and hypercapnic respiratory failure due to acute heart failure with reduced EF and pneumonia. He was discharged home on 4 L O2. He also has a PMH of COPD, CKD, CAD, HLD, and T2DM. He denies fevers, chills, chest pain, abdominal pain, nausea, and vomiting. PFSH <TAMIKA Lindsey - Last Filed: 12/31/23 18:31> [facility] Medical History Dysphagia CHF exacerbation Hearing loss, left Hearing loss, right Anxiety Diabetes Chronic pain Kidney stones Kidney disease Former smoker Sleep apnea COPD (chronic obstructive pulmonary disease) Chest pain Myocardial infarct Hypertension DVT (deep venous thrombosis) Unable to walk Acute kidney injury Home Medications ?Medication ?Instructions ?Recorded ?Last Taken ?Type gabapentin 400 mg capsule 400 mg PO TID NERVE PAIN 08/20/18 12/05/23 History glipizide 5 mg tablet 5 mg PO .BEFORE MEALS DM 08/20/18 12/05/23 History sertraline 50 mg tablet 100 mg PO DAILY DEPRESSION 08/20/18 12/05/23 History carvedilol 3.125 mg tablet 3.125 mg PO BID blood pressure 08/21/18 12/05/23 Rx clopidogrel 75 mg tablet 75 mg PO DAILY anti platelet 08/21/18 12/05/23 Rx albuterol 90 mcg/actuation aerosol 90 mcg inhalation .4X A DAY PRN SOB 12/30/22 Unknown History inhaler amlodipine 10 mg tablet 10 mg PO DAILY blood pressure 12/30/22 Unknown History cholecalciferol (vitamin D3) 25 75 mcg PO DAILY vitamin 12/30/22 12/05/23 History mcg (1,000 unit) capsule cyanocobalamin (vitamin B-12) 1,000 mcg PO DAILY vitamin 12/30/22 12/05/23 History 1,000 mcg capsule hydrocodone-acetaminophen 5-325mg 1 tab PO TID pain 12/30/22 12/05/23 History 5mg-325mg mometasone 200 mcg/actuation HFA 2 puff inhalation BID breathing 12/30/22 12/05/23 History aerosol inhaler (Asmanex HFA) rosuvastatin 40 mg tablet (Crestor) 40 mg PO QHS cholesterol 12/30/22 12/04/23 History tiotropium 2.5 mcg-olodaterol 2.5 2 inh inhalation DAILY breathing 12/30/22 12/05/23 History mcg/actuation mist for inhalation (Stiolto Respimat) aspirin 81 mg tablet,delayed 81 mg PO DAILY heart meera 12/05/23 12/05/23 History release (Adult Aspirin Regimen) furosemide 40 mg tablet 40 mg PO DAILY diuretic 12/05/23 12/05/23 History amoxicillin 500 mg-potassium 1 tab PO BID 5 days #10 tabs 12/15/23 Unknown Rx clavulanate 125 mg tablet (Augmentin) furosemide 20 mg tablet 20 mg PO .evening 1 month #30 tabs 12/15/23 Unknown Rx insulin glargine 100 unit/mL 18 unit (0.18 mL) subcut QHS 30 12/15/23 12/04/23 Rx subcutaneous solution days #0 mL insulin lispro 100 unit/mL 5 unit (0.05 mL) subcut TIDAC 1 12/15/23 Unknown Rx subcutaneous pen (Humalog KwikPen month #15 mL (U-100) Insulin) insulin lispro 100 unit/mL See Protocol subcut ACHS #0 mL 12/15/23 Unknown Rx subcutaneous pen (Humalog KwikPen (U-100) Insulin) pantoprazole 40 mg tablet,delayed 40 mg PO BID 30 days #60 tabs 12/15/23 Unknown Rx release (Protonix) prednisone 20 mg tablet 40 mg (2 x 20 mg) PO BREAKFAST 5 12/15/23 Unknown Rx days #10 tabs sucralfate 1 gram tablet (Carafate) 1 g PO TID #90 tabs 12/22/23 Unknown Rx Allergy/AdvReac Type Severity Reaction Status Date / Time No Known Allergies Allergy Verified 12/31/23 11:35 Surgical History Hx of CABG History of coronary artery stent placement Social History household members: spouse Smoking Status: Former smoker ROS <TAMIKA Lindsey - Last Filed: 12/31/23 18:31> ROS ED Constitutional Constitutional ED: Denies chills or fever(s) Cardiovascular Cardiovascular: Denies chest pain or palpitations Respiratory/Chest Respiratory/Chest: Reports cough, dyspnea, sputum and wheezing Gastrointestinal Gastrointestinal: Denies abdominal pain, nausea or vomiting Musculoskeletal Musculoskeletal: Denies arthralgias or myalgias Integumentary Denies rash Neurologic Neurologic: Reports weakness EXAM <TAMIKA Lindsey - Last Filed: 12/31/23 18:31> Physical Exam Const Vital Signs: 12/31/23 11:26 12/31/23 11:32 12/31/23 11:51 Temperature 98.1 F Temperature Source Oral Pulse Rate 96 90 Respiratory Rate 24 H 20 H Respiratory Pattern Tachypnea Tachypnea Blood Pressure 105/89 H Blood Pressure Mean 94 Pulse Ox 90 Oxygen Delivery Method Oxygen Flow Rate (L/min) 4 Fraction of Inspired Oxygen (FIO2) 12/31/23 11:56 12/31/23 12:21 12/31/23 13:12 Temperature 98.6 F Temperature Source Pulse Rate 93 89 Respiratory Rate 22 H 18 Respiratory Pattern Tachypnea Blood Pressure 100/51 L Blood Pressure Mean 67 Pulse Ox 93 96 Oxygen Delivery Method Nasal Cannula Oxygen Flow Rate (L/min) 12 Fraction of Inspired Oxygen (FIO2) 70 12/31/23 13:13 Temperature 98.6 F Temperature Source Temporal Pulse Rate 89 Respiratory Rate 18 Respiratory Pattern Blood Pressure 112/56 L Blood Pressure Mean 74 Pulse Ox 96 Oxygen Delivery Method Airvo Oxygen Flow Rate (L/min) 60 Fraction of Inspired Oxygen (FIO2) 60 Positive well nourished, well developed and no apparent distress General Appearance ED: well developed HEENT Reports normocephalic and head/scalp atraumatic Mouth ED: Yes moist mucous membranes normal Eyes PERRL and EOMs intact bilaterally Neck full ROM and supple Chest Wall inspection of chest normal Resp normal respiratory effort and clear to auscultation bilaterally Resp Narrative: Coarse breath sounds throughout bilateral lung harmon Cardio regular rate and regular rhythm GI soft to palpation, non-tender and non-distended Back/Spine normal ROM and normal to inspection Extremity normal to inspection and full ROM Extremity Narrative: Bilateral 2+ pitting edema to the distal lower extremities Neuro oriented x3, CN's II-XII intact bilaterally, moves all extremities, no focal motor deficits and no sensory deficits noted Sensorium / Orientation: awake and alert Psych mental status grossly normal and thought process normal Skin no rashes or lesions noted and no wounds <Dr. David Whitfield DO - Last Filed: 12/31/23 18:17> Physical Exam Const Vital Signs: 12/31/23 11:26 12/31/23 11:32 12/31/23 11:51 Temperature 98.1 F Temperature Source Oral Pulse Rate 96 90 Respiratory Rate 24 H 20 H Respiratory Pattern Tachypnea Tachypnea Blood Pressure 105/89 H Blood Pressure Mean 94 Pulse Ox 90 Oxygen Delivery Method Oxygen Flow Rate (L/min) 4 Fraction of Inspired Oxygen (FIO2) 12/31/23 11:56 12/31/23 12:21 12/31/23 13:12 Temperature 98.6 F Temperature Source Pulse Rate 93 89 Respiratory Rate 22 H 18 Respiratory Pattern Tachypnea Blood Pressure 100/51 L Blood Pressure Mean 67 Pulse Ox 93 96 Oxygen Delivery Method Nasal Cannula Oxygen Flow Rate (L/min) 12 Fraction of Inspired Oxygen (FIO2) 70 12/31/23 13:13 Temperature 98.6 F Temperature Source Temporal Pulse Rate 89 Respiratory Rate 18 Respiratory Pattern Blood Pressure 112/56 L Blood Pressure Mean 74 Pulse Ox 96 Oxygen Delivery Method Airvo Oxygen Flow Rate (L/min) 60 Fraction of Inspired Oxygen (FIO2) 60 [facility] <TAMIKA Lindsey - Last Filed: 12/31/23 18:31> [facility] Narrative Medical decision making narrative: Patient presenting today due to shortness of breath and a productive cough started over the last several days. He was recently here for acute hypoxic and hypercapnic respiratory failure due to acute heart failure with reduced EF. There is also suspected that he had pneumonia and he was discharged home on Augmentin. He has been having purulent sputum production. He is on 6 L O2 and is around 86%. He was switched to Airvo and is satting better. Chest x-ray obtained and does show a large left-sided pleural effusion with infiltrates, patient was given Rocephin and azithromycin. He was also given Solu-Medrol and breathing treatments. CBC shows a platelet count of 132, hemoglobin 12.5, he does appear to be hypercapnic on his ABG, potassium 5.8 but is hemolyzed. He is hypercapnic. Kidney function appears stable with a creatinine of 1.54 and BUN of 61. His BNP is 109.1. I do feel that he requires admission again to the hospital. Will hold off on Lasix at this time given his blood pressure is at 105/89. I did speak with hospitalist, she request that patient be placed on BiPAP given he is hypercapnic. Patient was admitted in stable condition. Interventions / MDM: Differential diagnosis: CHF exacerbation, COPD exacerbation, pneumonia, hypercapnia Diagnosis considered but do not suspect: N/A My EKG interpretation: Sinus rate of [address] changes. T wave inversions anterior lateral, and chronic left bundle branch block similar to EKG in November 2023. Imaging independently reviewed and interpreted by myself: Chest x-ray: Left middle lower lobe infiltrates, no pleural effusion External documents reviewed: N/A Test considered but not ordered:N/A ED course: I have personally performed a face to face assessment of the patient and have reviewed the MARIA E note. I personally made/approved the management plan and take responsibility for the patient management. I performed a substantive portion of the visit including all aspects of the following. My duncan findings include: Worsening productive cough for 1 week increasing dyspnea wheeze. Increased leg swelling. Chronically sleeps on a recliner therefore no orthopnea symptoms. Diabetic history. No chest or abdominal pain. Exam coarse breath sounds 2+ lower extremity pitting edema. Chronically on 4 L currently 6 L intermittent pulse ox with good waveforms 85 to 86%. Reported lethargic from EMS, is A and O x 3. With hypoxia check ABG to evaluate for hypercapnia. He does wear CPAP at night. He is full code on discussion with the patient. Will increase oxygen high flow if needed, chest x-ray labs. EKG with stable chronic findings. Solu-Medrol and aerosol treatments ordered. Will plan for admission. X-ray concerning for left-sided infiltrates. He is stable on the Airvo. ABG slight hypercapnia. He was covered with Rocephin and Zithromax. Due to soft blood pressure will hold off on diuretics at this time. History of CKD with stable labs. Discussed with hospitalist for admission. Re-evaluation: stable Disposition discussed with patient/family/significant other: Patient Case discussed with consulting clinician: Hospitalist This note was generated with [employer] dictation software. It may contain incorrect words, spelling, and punctuation that were not noted in checking the note before signing. Lab Data Attestation: I reviewed the patient's lab results. Labs: Laboratory Results - last 24 hr 12/31/23 12/31/23 11:30 13:09 WBC 9.8 RBC 4.35 L Hgb 12.5 L Hct 41.0 MCV 94.3 H MCH 28.7 MCHC 30.5 L RDW Std Deviation 51.5 H RDW Coeff of Audi 14.8 H Plt Count 132 L MPV 10.8 Immature Gran % (Auto) 0.400 Neut % (Auto) 71.5 H Lymph % (Auto) 16.5 L [place] % (Auto) 9.5 Eos % (Auto) 1.6 Baso % (Auto) 0.5 Absolute Neuts (auto) 7.0 Absolute Lymphs (auto) 1.61 Nucleated RBC % 0 Sodium 137 Potassium 5.8 H Cancelled Chloride 104 Carbon Dioxide 30.0 Anion Gap 3 L BUN 61 H Creatinine 1.54 H Estim Creat Clear Calc 35.50 Est GFR (MDRD) Af Amer 57 L Est GFR (MDRD) Non-Af 47 L BUN/Creatinine Ratio 39.6 H Glucose 204 H Calcium 9.1 Troponin I High Sens 33 B-Natriuretic Peptide 109.1 H ABG Data ABG results: ABG 12/31/23 12:01 Specimen Type ART Sample Site R Radial pH 7.27 L Bicarbonate Actual 33.5 H Total CO2 36 Base Excess 7 H O2 Saturation 94 L O2 % 12.0 ABG pCO2 72.9 H* ABG pO2 85 Meliton Test Positive O2 Delivery Device HFNC Vent Mode Not entered Crit Call To/Read Back Yes Blood Gas Notified Whom le Blood Gas Notified Time 12:03:07 Radiography X-Ray: Read by ED Physician Diagnostic Testing: Clinical Impression(s) from Imaging Studies Chest X-Ray 12/31/23 12:25 IMPRESSION: Ill-defined opacity within the left mid and lower lung may reflect some combination of atelectasis, pneumonia and/or a neoplastic process with a possible effusion. Electronically Signed: Dayna Han MD at 12:54 EDT , Chest CTA 12/31/23 13:21 IMPRESSION: 1. No demonstrated pulmonary embolism or arterial dissection. 2. Prominent interstitial lung markings may suggest an infiltrate/pneumonia pattern. However, lymphangitic carcinoma should be considered. 3. Left lower lobe and left midlung infiltrate. This can be related to pneumonia. However it is worse an underlying new plastic processes of concern. 4. Diffuse mediastinal adenopathy. This is worse. Consider neoplastic process. 5. Small left pleural effusion. Electronically Signed: Jack Rolle MD at 14:27 EDT , EKG Initial EKG: Comments: 95 bpm, sinus rhythm with occasional PVCs, left bundle branch block, no ST elevation <Dr. David Whitfield, DO - Last Filed: 12/31/23 18:17> MDM MDM Narrative Medical decision making narrative: Patient presenting today due to shortness of breath and a productive cough started over the last several days. He was recently here for acute hypoxic and hypercapnic respiratory failure due to acute heart failure with reduced EF. There is also suspected that he had pneumonia and he was discharged home on Augmentin. He has been having purulent sputum production. He is on 6 L O2 and is around 86%. He was switched to Airvo and is satting better. Chest x-ray obtained and does show a large left-sided pleural effusion with infiltrates, patient was given Rocephin and azithromycin. He was also given Solu-Medrol and breathing treatments. CBC shows a platelet count of 132, hemoglobin 12.5, he does appear to be hypercapnic on his ABG, potassium 5.8 but is hemolyzed. Kidney function appears stable with a creatinine of 1.54 and BUN of 61. His BNP is 109.1. I do feel that he requires admission again to the hospital. Will hold off on Lasix at this time given his blood pressure is at 105/89 Interventions / MDM: Differential diagnosis: CHF exacerbation, COPD exacerbation, pneumonia, hypercapnia Diagnosis considered but do not suspect: N/A My EKG interpretation: Sinus rate of [address] changes. T wave inversions anterior lateral, and chronic left bundle branch block similar to EKG in November 2023. Imaging independently reviewed and interpreted by myself: Chest x-ray: Left middle lower lobe infiltrates, no pleural effusion External documents reviewed: N/A Test considered but not ordered:N/A ED course: I have personally performed a face to face assessment of the patient and have reviewed the MARIA E note. I personally made/approved the management plan and take responsibility for the patient management. I performed a substantive portion of the visit including all aspects of the following. My duncan findings include: Worsening productive cough for 1 week increasing dyspnea wheeze. Increased leg swelling. Chronically sleeps on a recliner therefore no orthopnea symptoms. Diabetic history. No chest or abdominal pain. Exam coarse breath sounds 2+ lower extremity pitting edema. Chronically on 4 L currently 6 L in termittent pulse ox with good waveforms 85 to 86%. Reported lethargic from EMS, is A and O x 3. With hypoxia check ABG to evaluate for hypercapnia. He does wear CPAP at night. He is full code on discussion with the patient. Will increase oxygen high flow if needed, chest x-ray labs. EKG with stable chronic findings. Solu-Medrol and aerosol treatments ordered. Will plan for admission. X-ray concerning for left-sided infiltrates. He is stable on the Airvo. ABG slight hypercapnia. He was covered with Rocephin and Zithromax. Due to soft blood pressure will hold off on diuretics at this time. History of CKD with stable labs. Discussed with hospitalist for admission. Re-evaluation: stable Disposition discussed with patient/family/significant other: Patient Case discussed with consulting clinician: Hospitalist This note was generated with [employer] dictation software. It may contain incorrect words, spelling, and punctuation that were not noted in checking the note before signing. Lab Data Labs: Laboratory Results - last 24 hr 12/31/23 12/31/23 11:30 13:09 WBC 9.8 RBC 4.35 L Hgb 12.5 L Hct 41.0 MCV 94.3 H MCH 28.7 MCHC 30.5 L RDW Std Deviation 51.5 H RDW Coeff of Audi 14.8 H Plt Count 132 L MPV 10.8 Immature Gran % (Auto) 0.400 Neut % (Auto) 71.5 H Lymph % (Auto) 16.5 L [place] % (Auto) 9.5 Eos % (Auto) 1.6 Baso % (Auto) 0.5 Absolute Neuts (auto) 7.0 Absolute Lymphs (auto) 1.61 Nucleated RBC % 0 Sodium 137 Potassium 5.8 H Cancelled Chloride 104 Carbon Dioxide 30.0 Anion Gap 3 L BUN 61 H Creatinine 1.54 H Estim Creat Clear Calc 35.50 Est GFR (MDRD) Af Amer 57 L Est GFR (MDRD) Non-Af 47 L BUN/Creatinine Ratio 39.6 H Glucose 204 H Calcium 9.1 Troponin I High Sens 33 B-Natriuretic Peptide 109.1 H ABG Data ABG results: ABG 12/31/23 12:01 Specimen Type ART Sample Site R Radial pH 7.27 L Bicarbonate Actual 33.5 H Total CO2 36 Base Excess 7 H O2 Saturation 94 L O2 % 12.0 ABG pCO2 72.9 H* ABG pO2 85 Meliton Test Positive O2 Delivery Device HFNC Vent Mode Not entered Crit Call To/Read Back Yes Blood Gas Notified Whom le Blood Gas Notified Time 12:03:07 Radiography Diagnostic Testing: Clinical Impression(s) from Imaging Studies Chest X-Ray 12/31/23 12:25 IMPRESSION: Ill-defined opacity within the left mid and lower lung may reflect some combination of atelectasis, pneumonia and/or a neoplastic process with a possible effusion. Electronically Signed: Dayna Han MD at 12:54 EDT , Chest CTA 12/31/23 13:21 IMPRESSION: 1. No demonstrated pulmonary embolism or arterial dissection. 2. Prominent interstitial lung markings may suggest an infiltrate/pneumonia pattern. However, lymphangitic carcinoma should be considered. 3. Left lower lobe and left midlung infiltrate. This can be related to pneumonia. However it is worse an underlying new plastic processes of concern. 4. Diffuse mediastinal adenopathy. This is worse. Consider neoplastic process. 5. Small left pleural effusion. Electronically Signed: Jack Rolle MD at 14:27 EDT Reading Location ID and State: [id number] / [place] , Service support , Discharge Plan Dx/Rx/DC Orders Clinical Impression: Pneumonia, Acute respiratory failure with hypoxia and hypercarbia, CHF exacerba tion, Chronic kidney disease Disposition Disposition: Acute Care Hospital [facility] Discharge Date/Time: 12/31/23 15:31
[2023-12-31] MEDS: Ipratropium/Albuterol Sulfate 3 ML AMPUL.NEB INHALATION (11:51)
[2023-12-31 11:52] LABS: Absolute Lymphocyte Count 1.61 X10^3/uL (0.83-4.51); Basophil# 0.05 X10^3/uL; Basophil% 0.5 % (0-1); Eosinophil# 0.16 X10^3/uL; Eosinophils% 1.6 % (0-5); Hemoglobin 12.5 g/dL (13.0-16.5); Lymphocyte # 1.61 X10^3/ul (0.83-4.51); Lymphocyte % 16.5 % (19-41); Mean Corp Hgb Conc 30.5 g/dL (32-36); Mean Corpuscular Hgb 28.7 pg (27.0-32.0); Mean Corpuscular Volume 94.3 fL (80-94); Mean Platelet Vol. 10.8 fl (6.2-12.0); Monocyte# 0.93 X10^3/uL; Monocyte% 9.5 % (0-10); NRBC Flagged by Analyzer 0 % (0-5); Neutrophil # 6.98 X10^3/uL (2.7-7.7); Neutrophil % 71.5 % (47-70); Platelet Count 132 K/mm3 (150-450); RBC Distribution Width CV 14.8 % (11.6-14.6); RBC Distribution Width SD 51.5 fl (35.1-43.9); Red Blood Count 4.35 M/mm3 (4.6-6.2); White Blood Count 9.8 K/mm3 (4.4-11.0)
[2023-12-31 12:05] LABS: Allen Test Positive; Base Excess 7 mmol/L (-2 to +2); Bicarbonate 33.5 mmol/L (22-26); Blood Gas Specimen Type ART; Mode Not entered; O2 Delivery Device HFNC; PO2 85 mmHG (75-100); SITE R Radial; SO2 94 % (95-99); Total Carbon Dioxide 36 mmol/L; pCO2 72.9 mmHg (35-45); pH 7.27 (7.35-7.45)
[2023-12-31 12:06] LABS: BNP,B-Type NATRIURETIC PEPTIDE 109.1 pg/mL (0-100)
--- NOTE | 2023-12-31 12:25 | RAD_ITS ---
INDICATION: shortness of breath EXAMINATION/TECHNIQUE: X-RAY - XR Chest 2 Views COMPARISON: December 07, 2023 FINDINGS: LINES/DEVICES: None. LUNGS: There is an ill-defined opacity throughout the left mid and lower lung. No pneumothorax. MEDIASTINUM AND CARDIOVASCULAR STRUCTURES: There are sternotomy wires in place. Cardiac silhouette not enlarged. Central airways and mediastinal contour are unremarkable. BONES AND SOFT TISSUES: Unremarkable. RAD/Chest PA and Lateral IMPRESSION: Ill-defined opacity within the left mid and lower lung may reflect some combination of atelectasis, pneumonia and/or a neoplastic process with a possible effusion. Electronically Signed: Dayna Han MD at 12:54 EDT ,
[2023-12-31 12:26] LABS: Anion Gap 3 (5-15); BUN 61 mg/dL (7-18); BUN/Creat Ratio 39.6 RATIO (10-20); Calcium,Total 9.1 mg/dL (8.5-10.1); Chloride 104 mmol/L (98-107); Creatinine, Serum 1.54 mg/dL (0.70-1.30); EST Glomerular Filtration Rate 47 mL/min (>60); Est Glom Filt Rate - Afr Amer 57 mL/min (>60); Glucose 204 mg/dL (74-106); Potassium 5.8 mmol/L (3.5-5.1); Sodium Level 137 mmol/L (136-145); Troponin-I HS 33 pg/mL (3.0-78.0)
--- NOTE | 2023-12-31 12:58 | HP.PCM.HOS_ITS ---
HPI - General General Date of Admission: 12/31/23 Date of Service: 12/31/23 Chief Complaint: shortness of breath HPI Narrative JONAH ALEXANDRA, is a 78 M with a PMH as outlined who was admitted via the ED on 12/31/2023 with a complaint of shortness of breath. He was recently seen in the hospital and managed for pneumonia. He was discharged home on 4L of oxygen, but he had been getting more short of breath so he came in to the ED. he was requiring increasing amounts of oxygen and had to be put on Airvo when he came into the ED. Patient was quite lethargic but would awake to voice. He admitted to a cough, but denied any shortness of breath, palpitations, dizziness, nausea, vomiting or any other symptoms. Review of systems is otherwise negative. Vitals in the ED were temperature of 98.1 Fahrenheit, pulse rate of 96, blood pressure 105/89, respiratory rate of 24 and was saturating at 93% on Airvo with 70% FiO2. CBC showed hemoglobin of 12.5 with WBC of 9.8 and platelets of 132. Chemistry showed sodium of 137 with potassium of 5.8 which was hemolyzed, creatinine of 1.54 and bicarb of 30. BNP was 109.1 and initial troponin was only 33. Chest x-ray showed ill-defined opacity within the left mid and lower lung which may reflect combination of atelectasis, pneumonia and/or neoplastic process with a possible effusion. He is being admitted to be managed for acute on chronic hypoxic and hypercapnic respiratory failure due to probable pneumonia as well as heart failure. [facility] Medical History Dysphagia CHF exacerbation Hearing loss, left Hearing loss, right Anxiety Diabetes Chronic pain Kidney stones Kidney disease Former smoker Sleep apnea COPD (chronic obstructive pulmonary disease) Chest pain Myocardial infarct Hypertension DVT (deep venous thrombosis) Unable to walk Acute kidney injury Home Medications ?Medication ?Instructions ?Recorded ?Last Taken ?Type gabapentin 400 mg capsule 400 mg PO TID NERVE PAIN 08/20/18 12/05/23 History glipizide 5 mg tablet 5 mg PO .BEFORE MEALS DM 08/20/18 12/05/23 History sertraline 50 mg tablet 100 mg PO DAILY DEPRESSION 08/20/18 12/05/23 History carvedilol 3.125 mg tablet 3.125 mg PO BID blood pressure 08/21/18 12/05/23 Rx clopidogrel 75 mg tablet 75 mg PO DAILY anti platelet 08/21/18 12/05/23 Rx albuterol 90 mcg/actuation aerosol 90 mcg inhalation .4X A DAY PRN SOB 12/30/22 Unknown History inhaler amlodipine 10 mg tablet 10 mg PO DAILY blood pressure 12/30/22 Unknown History cholecalciferol (vitamin D3) 25 75 mcg PO DAILY vitamin 12/30/22 12/05/23 History mcg (1,000 unit) capsule cyanocobalamin (vitamin B-12) 1,000 mcg PO DAILY vitamin 12/30/22 12/05/23 History 1,000 mcg capsule hydrocodone-acetaminophen 5-325mg 1 tab PO TID pain 12/30/22 12/05/23 History 5mg-325mg mometasone 200 mcg/actuation HFA 2 puff inhalation BID breathing 12/30/22 12/05/23 History aerosol inhaler (Asmanex HFA) rosuvastatin 40 mg tablet (Crestor) 40 mg PO QHS cholesterol 12/30/22 12/04/23 History tiotropium 2.5 mcg-olodaterol 2.5 2 inh inhalation DAILY breathing 12/30/22 12/05/23 History mcg/actuation mist for inhalation (Stiolto Respimat) aspirin 81 mg tablet,delayed 81 mg PO DAILY heart meera 12/05/23 12/05/23 History release (Adult Aspirin Regimen) furosemide 40 mg tablet 40 mg PO DAILY diuretic 12/05/23 12/05/23 History amoxicillin 500 mg-potassium 1 tab PO BID 5 days #10 tabs 12/15/23 Unknown Rx clavulanate 125 mg tablet (Augmentin) furosemide 20 mg tablet 20 mg PO .evening 1 month #30 tabs 12/15/23 Unknown Rx insulin glargine 100 unit/mL 18 unit (0.18 mL) subcut QHS 30 12/15/23 12/04/23 Rx subcutaneous solution days #0 mL insulin lispro 100 unit/mL 5 unit (0.05 mL) subcut TIDAC 1 12/15/23 Unknown Rx subcutaneous pen (Humalog KwikPen month #15 mL (U-100) Insulin) insulin lispro 100 unit/mL See Protocol subcut ACHS #0 mL 12/15/23 Unknown Rx subcutaneous pen (Humalog KwikPen (U-100) Insulin) pantoprazole 40 mg tablet,delayed 40 mg PO BID 30 days #60 tabs 12/15/23 Unknown Rx release (Protonix) prednisone 20 mg tablet 40 mg (2 x 20 mg) PO BREAKFAST 5 12/15/23 Unknown Rx days #10 tabs sucralfate 1 gram tablet (Carafate) 1 g PO TID #90 tabs 12/22/23 Unknown Rx Allergy/AdvReac Type Severity Reaction Status Date / Time No Known Allergies Allergy Verified 12/31/23 11:35 Surgical History Hx of CABG History of coronary artery stent placement Social History household members: spouse Smoking Status: Former smoker ROS Review of Systems ROS Unobtainable: Denies due to encephalopathy Constitutional Constitutional: Reports chills, fatigue, malaise and weakness; Denies anorexia or fever(s) Eyes Eyes: Denies change in vision Cardiovascular Cardiovascular: Reports dyspnea on exertion and orthopnea; Denies chest pain, edema, lightheadedness, palpitations, paroxysmal nocturnal dyspnea, rapid heart rate or syncope Respiratory/Chest Respiratory/Chest: Reports cough, dyspnea, productive cough, shortness of breath at rest and shortness of breath with exertion; Denies wheezing Gastrointestinal Gastrointestinal: Denies abdominal pain, constipation, diarrhea, dyspepsia, nausea or vomiting Genitourinary Genitourinary: Denies burning urination or dysuria Neurologic Neurologic: Denies confusion, dizziness, focal weakness, headache(s), numbness, seizures or syncope Psychiatric Psychiatric: Denies anxiety or depression Vital Signs Vital Signs Vital Signs: 12/31/23 11:26 12/31/23 11:32 12/31/23 11:51 Temperature 98.1 F Temperature Source Oral Pulse Rate 96 90 Respiratory Rate 24 H 20 H Respiratory Pattern Tachypnea Tachypnea Blood Pressure 105/89 H Blood Pressure Mean 94 Pulse Ox 90 Oxygen Delivery Method Oxygen Flow Rate (L/min) 4 Fraction of Inspired Oxygen (FIO2) 12/31/23 11:56 12/31/23 12:21 Temperature Temperature Source Pulse Rate 93 Respiratory Rate 22 H Respiratory Pattern Tachypnea Blood Pressure Blood Pressure Mean Pulse Ox 93 Oxygen Delivery Method Nasal Cannula Oxygen Flow Rate (L/min) 12 Fraction of Inspired Oxygen (FIO2) 70 Weight Weight: 140 lb 14.006 oz Body Mass Index (BMI) 23.4 Physical Exam Const alert and oriented x3 Constitutional Narrative: frail, lethargic General Appearance: cooperative HEENT normocephalic, head/scalp atraumatic, moist oral mucous membranes and oropharynx normal Mouth: oral and palatal mucosa normal Eyes PERRL, EOMs intact bilaterally and conjunctivae normal Neck no lymphadenopathy and supple Resp Resp Narrative: Moderately diminished breath sounds bibasilarly. Bilateral crackles. On Airvo at 60L/min Cardio regular rate, regular rhythm, S1 normal heart sound, S2 normal heart sound and no murmurs GI normal to inspection, nondistended, normoactive bowel sounds, soft to palpation, non-tender and non-distended Extremity normal to inspection, full ROM and no clubbing, cyanosis or edema Neuro oriented x3, CN's II-XII intact bilaterally, moves all extremities and no focal motor deficits Sensorium / Orientation: awake Motor Exam: strength 5/5 throughout Psych affect normal Results Lab / Micro Data 12/31/23 11:30 12/31/23 11:30 Labs: Laboratory Results - last 24 hr 12/31/23 11:30: WBC 9.8, RBC 4.35 L, Hgb 12.5 L, Hct 41.0, MCV 94.3 H, MCH 28.7, MCHC 30.5 L, RDW Std Deviation 51.5 H, RDW Coeff of Audi 14.8 H, Plt Count 132 L, MPV 10.8, Immature Gran % (Auto) 0.400, Neut % (Auto) 71.5 H, Lymph % (Auto) 16.5 L, [place] % (Auto) 9.5, Eos % (Auto) 1.6, Baso % (Auto) 0.5, Absolute Neuts (auto) 7.0, Absolute Lymphs (auto) 1.61, Nucleated RBC % 0, Sodium 137, P otassium 5.8 H, Chloride 104, Carbon Dioxide 30.0, Anion Gap 3 L, BUN 61 H, C reatinine 1.54 H, Estim Creat Clear Calc 35.50, Est GFR (MDRD) Af Amer 57 L, Est GFR (MDRD) Non-Af 47 L, BUN/Creatinine Ratio 39.6 H, Glucose 204 H, Calcium 9.1, Troponin I High Sens 33, B-Natriuretic Peptide 109.1 H ABG Data ABG results: ABG 12/31/23 12:01 Specimen Type ART Sample Site R Radial pH 7.27 L Bicarbonate Actual 33.5 H Total CO2 36 Base Excess 7 H O2 Saturation 94 L O2 % 12.0 ABG pCO2 72.9 H* ABG pO2 85 Meliton Test Positive O2 Delivery Device HFNC Vent Mode Not entered Crit Call To/Read Back Yes Blood Gas Notified Whom le Blood Gas Notified Time 12:03:07 Imaging Radiology Impression Chest X-Ray 12/31/23 12:25 IMPRESSION: Ill-defined opacity within the left mid and lower lung may reflect some combination of atelectasis, pneumonia and/or a neoplastic process with a possible effusion. Electronically Signed: Dayna Han MD at 12:54 EDT , Assessment & Plan Assessment/Plan (1) Acute respiratory failure with hypoxia and hypercarbia: PLAN: Plan Acute on chronic hypoxic and hypercapnic respiratory failure due to probable pneumonia * Patient was recently discharged home a few weeks ago after being managed for pneumonia. He was discharged on 4 L of oxygen. * He went to minute continuously felt short of breath so he came into the ED. He was requiring up to 15 L of oxygen and is now on Airvo. * CXR showed ill defined opacity within hte left mid and lowerr lung which may reflect some combination of atelectasis, pneumonia and/or neoplastic process with a possible effusion. * COVID, influenza and RSV are negative * admit to ICU due to high oxygen requirements of 60L/min via Airvo * ABG showed pH of 7.27 with bicarb of 33 and pCO2 of 72.9. pO2 was 85. Previous ABGs had shown pCO2 to of around 58 and 60.5. * Get sputum and blood cultures. Check urine for strep and Legionella. * Started on IV Zosyn for presumptive pneumonia * Breathing treatments with bronchodilators. Switch to BiPAP on account of the elevated pCO2 * Consult pulmonology. * Titrate oxygen to maintain saturation above 90%. * get CT chest * He did have a CT of the chest on 12/11/2023 which showed dense consolidation in the posterior aspect of the lingula segment of the left upper lobe with narrowing of the intermediate bronchus with suspicion of left hilar mass. Per tool liaison patient will require EBUS with biopsy. He also had modified barium swallow which showed silent aspiration and so he may have aspirated resulting in this current episode of pneumonia * Consult speech therapy. * patient at risk of decompensation very quickly. Low threshold to intubate. * Keep n.p.o. for now until swallowing is evaluated as there is concern for aspiration. * repeat ABG and place on BIPAP if CO2 still remains elevated. * #History of esophageal stenosis: * Had EGD on 12/15/2023 which showed benign-appearing esophageal stenosis which was dilated and grade a reflux esophagitis as well as a medium size hiatal hernia and chronic gastritis. * Continue PPI #History of CAD. Was admitted with non-STEMI recently. On aspirin and high intensity statin. 2D echo showed EF of 20 to 25% and severe global hypokinesis. #Type 2 diabetes mellitus:hold long acting insulin for now. ISS. Accuchecks q6hrly as he is NPO #Hyperlipidemia: On statin #Depression: On sertraline #CKD stage IV: Used to be on dialysis but this was discontinued in April 2023. Creatinine today is 1.58. DVT prophylaxis: heparin Code status: full code * Patient counseled extensively about different types of CODE STATUS including full code, DNR CCA and DNR CCA. * Patient elects to be full code. * Total [id number] time 16 minutes. # Charges/Coding Visit Charges Inpatient E&M: 41023 Init Hosp L3 Procedures Hospitalists Procedures: 62634 Advncd Care Plan 30 Min (critical care [id number])
[2023-12-31] MEDS: Ceftriaxone 1 GM/50 ML BAG IV (13:12)
--- NOTE | 2023-12-31 13:21 | CT_ITS ---
EXAM: CT ANGIOGRAPHY CHEST WITHOUT AND WITH INTRAVENOUS CONTRAST CLINICAL INDICATION: acute on chronic hypoxic respiratory failure TECHNIQUE: Helically acquired angiography images were obtained of the chest without and with intravenous contrast. This CT exam was performed using one or more of the following dose reduction techniques: automated exposure control, adjustment of the mA and/or kV according to patient size, and/or use of iterative reconstruction technique. MIP reconstructed images were created and reviewed. CONTRAST: IV 100mL [id number] RADIATION DOSE: CTDIvol = 11.7 mGy, DLP = 444.64 mGy-cm COMPARISON: 8.5.24 FINDINGS: PULMONARY ARTERIES: Unremarkable. No demonstrated pulmonary embolism or arterial dissection. AORTA: There is atherosclerotic calcification of the aortic arch with tortuosity and elongation of the aortic arch and descending thoracic aorta. Normal in caliber. No evidence of dissection. GREAT VESSELS OF AORTIC ARCH: Unremarkable. Normal in caliber. No evidence of dissection. LUNGS AND PLEURAL SPACES: Prominent interstitial lung markings may suggest an infiltrate/pneumonia pattern. However, lymphangitic carcinoma should be considered. Left lower lobe and left midlung infiltrate. This can be related to pneumonia. However it is worse an underlying new plastic processes of concern. Small left pleural effusion. No mass. HEART: There are calcifications of the coronary arteries. Heart size is normal. No pericardial effusion. MEDIASTINUM: Mediastinal wires. Enlarged heart. Diffuse mediastinal adenopathy. This is worse. Consider neoplastic process. Esophagus is unremarkable. No hiatal hernia. THYROID: Unremarkable. No thyroid lesions. BONES/JOINTS: There are degenerative changes of the shoulders. There are multi-level degenerative changes of the thoracic spine. Stable compression deformity of T11. Healed T12 rib fractures. No suspicious lytic or blastic abnormality. OTHER FINDINGS: Post-processing of the images was performed, with axial imaging and 3D reconstruction. MIPS images were obtained. CT/CTA Chest W/WO Contrast IMPRESSION: 1. No demonstrated pulmonary embolism or arterial dissection. 2. Prominent interstitial lung markings may suggest an infiltrate/pneumonia pattern. However, lymphangitic carcinoma should be considered. 3. Left lower lobe and left midlung infiltrate. This can be related to pneumonia. However it is worse an underlying new plastic processes of concern. 4. Diffuse mediastinal adenopathy. This is worse. Consider neoplastic process. 5. Small left pleural effusion. Electronically Signed: Jack Rolle MD at 14:27 EDT ,
--- NOTE | 2023-12-31 13:26 | NURSING ---
CALLED [facility], TALKED TO TEDDY RAAYAXED CHART
[2023-12-31] MEDS: Azithromycin 500 MG in Dextrose 5%-Water (250mL Bag) 250 ML 250 MG IV (13:28)
[2023-12-31 13:42] LABS: Allen Test Positive; Base Excess 6 mmol/L (-2 to +2); Bicarbonate 31.9 mmol/L (22-26); Blood Gas Specimen Type ART; Comment 60l 60%; Mode Not entered; O2 Delivery Device airvo; PO2 68 mmHG (75-100); SITE R Brach; SO2 91 % (95-99); Total Carbon Dioxide 34 mmol/L; pCO2 63.1 mmHg (35-45); pH 7.31 (7.35-7.45)
[2023-12-31 14:43] LABS: Anion Gap 3 (5-15); BUN 58 mg/dL (7-18); BUN/Creat Ratio 39.2 RATIO (10-20); Calcium,Total 8.6 mg/dL (8.5-10.1); Chloride 102 mmol/L (98-107); Creatinine, Serum 1.48 mg/dL (0.70-1.30); EST Glomerular Filtration Rate 49 mL/min (>60); Est Glom Filt Rate - Afr Amer 59 mL/min (>60); Estimated Creatinine Clearance 36.94 ml/min; Glucose 203 mg/dL (74-106); Potassium 4.6 mmol/L (3.5-5.1); Sodium Level 137 mmol/L (136-145)
[2023-12-31] MEDS: Furosemide 40 MG/4 ML Vial IV (15:56)
[2023-12-31] MEDS: Heparin Injection (Vial) 5,000 UNIT/ML VIAL 5000 UNIT SC ×2 (15:56→20:34)
[2023-12-31 16:30] LABS: Troponin-I HS 36 pg/mL (3.0-78.0)
[2023-12-31] MEDS: Piperacil/Tazobactam 3.375 GM in 0.9% Normal Saline (50mL MB+) 50 ML IV ×2 (17:13→22:15)
[2023-12-31] MEDS: 0.9% Saline Lock 10 ML Syringe IV ×2 (17:13→20:38)
[2023-12-31] MEDS: Insulin Lispro 100 UNIT/ML INSULN.PEN SC (17:30)
[2023-12-31 17:54] LABS: Bedside Glucose 181 mg/dL (74-106)
--- NOTE | 2023-12-31 19:35 | CON.PCM.CC_ITS ---
HPI Consult Data Date of Consult: 12/31/23 HPI Narrative HPI Narrative: JONAH ALEXANDRA, is a 78 M with a PMH as outlined who was admitted via the ED on 12/31/2023 with a complaint of shortness of breath. He was recently seen in the hospital and managed for pneumonia. He was discharged home on 4L of oxygen, but he had been getting more short of breath so he came in to the ED. he was requiring increasing amounts of oxygen and had to be put on Airvo when he came into the ED. Patient was quite lethargic but would awake to voice. He admitted to a cough, but denied any shortness of breath, palpitations, dizziness, nausea, vomiting or any other symptoms. Review of systems is otherwise negative. Vitals in the ED were temperature of 98.1 Fahrenheit, pulse rate of 96, blood pressure 105/89, respiratory rate of 24 and was saturating at 93% on Airvo with 70% FiO2. CBC showed hemoglobin of 12.5 with WBC of 9.8 and platelets of 132. Chemistry showed sodium of 137 with potassium of 5.8 which was hemolyzed, creatinine of 1.54 and bicarb of 30. BNP was 109.1 and initial troponin was only 33. Chest x-ray showed ill-defined opacity within the left mid and lower lung which may reflect combination of atelectasis, pneumonia and/or neoplastic process with a possible effusion. He is being admitted to be managed for acute on chronic hypoxic and hypercapnic respiratory failure due to probable pneumonia as well as heart failure. Interval : Patient was admitted to the ICU and is still on airvo. Patient was started on zosyn and lasix . UOP is 300 ml Lines - PIVS Tubes - condom cath Gtts- none Airvo 50L 60% PFSH Medical History Dysphagia CHF exacerbation Hearing loss, left Hearing loss, right Anxiety Diabetes Chronic pain Kidney stones Kidney disease Former smoker Sleep apnea COPD (chronic obstructive pulmonary disease) Chest pain Myocardial infarct Hypertension DVT (deep venous thrombosis) Unable to walk Acute kidney injury Home Medications ?Medication ?Instructions ?Recorded ?Last Taken ?Type gabapentin 400 mg capsule 400 mg PO TID NERVE PAIN 08/20/18 12/05/23 History glipizide 5 mg tablet 5 mg PO .BEFORE MEALS DM 08/20/18 12/05/23 History sertraline 50 mg tablet 100 mg PO DAILY DEPRESSION 08/20/18 12/05/23 History carvedilol 3.125 mg tablet 3.125 mg PO BID blood pressure 08/21/18 12/05/23 Rx clopidogrel 75 mg tablet 75 mg PO DAILY anti platelet 08/21/18 12/05/23 Rx albuterol 90 mcg/actuation aerosol 90 mcg inhalation .4X A DAY PRN SOB 12/30/22 Unknown History inhaler amlodipine 10 mg tablet 10 mg PO DAILY blood pressure 12/30/22 Unknown History cholecalciferol (vitamin D3) 25 75 mcg PO DAILY vitamin 12/30/22 12/05/23 History mcg (1,000 unit) capsule cyanocobalamin (vitamin B-12) 1,000 mcg PO DAILY vitamin 12/30/22 12/05/23 History 1,000 mcg capsule hydrocodone-acetaminophen 5-325mg 1 tab PO TID pain 12/30/22 12/05/23 History 5mg-325mg mometasone 200 mcg/actuation HFA 2 puff inhalation BID breathing 12/30/22 12/05/23 History aerosol inhaler (Asmanex HFA) rosuvastatin 40 mg tablet (Crestor) 40 mg PO QHS cholesterol 12/30/22 12/04/23 History tiotropium 2.5 mcg-olodaterol 2.5 2 inh inhalation DAILY breathing 12/30/22 12/05/23 History mcg/actuation mist for inhalation (Stiolto Respimat) aspirin 81 mg tablet,delayed 81 mg PO DAILY heart meera 12/05/23 12/05/23 History release (Adult Aspirin Regimen) furosemide 40 mg tablet 40 mg PO DAILY diuretic 12/05/23 12/05/23 History amoxicillin 500 mg-potassium 1 tab PO BID 5 days #10 tabs 12/15/23 Unknown Rx clavulanate 125 mg tablet (Augmentin) furosemide 20 mg tablet 20 mg PO .evening 1 month #30 tabs 12/15/23 Unknown Rx insulin glargine 100 unit/mL 18 unit (0.18 mL) subcut QHS 30 12/15/23 12/04/23 Rx subcutaneous solution days #0 mL insulin lispro 100 unit/mL 5 unit (0.05 mL) subcut TIDAC 1 12/15/23 Unknown Rx subcutaneous pen (Humalog KwikPen month #15 mL (U-100) Insulin) insulin lispro 100 unit/mL See Protocol subcut ACHS #0 mL 12/15/23 Unknown Rx subcutaneous pen (Humalog KwikPen (U-100) Insulin) pantoprazole 40 mg tablet,delayed 40 mg PO BID 30 days #60 tabs 12/15/23 Unknown Rx release (Protonix) prednisone 20 mg tablet 40 mg (2 x 20 mg) PO BREAKFAST 5 12/15/23 Unknown Rx days #10 tabs sucralfate 1 gram tablet (Carafate) 1 g PO TID #90 tabs 12/22/23 Unknown Rx Allergy/AdvReac Type Severity Reaction Status Date / Time No Known Allergies Allergy Verified 12/31/23 11:35 Surgical History Hx of CABG History of coronary artery stent placement Social History household members: spouse Smoking Status: Former smoker Objective Data Objective Data Vital Signs: Vital Signs Last response 3 Temperature 36.4 C L 12/31/23 15:30 Temperature Source Temporal 12/31/23 15:30 Pulse Rate 90 12/31/23 19:00 Respiratory Rate 13 12/31/23 19:00 Respiratory Effort Normal 12/31/23 17:27 Respiratory Depth Normal 12/31/23 17:27 Respiratory Pattern Normal 12/31/23 17:27 Blood Pressure 128/71 H 12/31/23 19:00 Blood Pressure Mean 90 12/31/23 19:00 Blood Pressure Source Monitor 12/31/23 19:00 Blood Pressure Position Semi-Fowlers 12/31/23 19:00 Blood Pressure Location Right Arm 12/31/23 19:00 Pulse Ox 96 12/31/23 19:00 Oxygen Delivery Method Airvo 12/31/23 19:00 Oxygen Flow Rate (L/min) 60 12/31/23 19:00 Fraction of Inspired Oxygen (FIO2) 45 12/31/23 19:00 I&O: I&O Last 24 Hours 3 12/30/23 12/31/23 12/31/23 23:59 11:59 23:59 Output Total 300 / 300 Balance -300 / -300 I&O: Total Stay 3 12/31/23 11:25 thru 12/31/23 17:35 Output Total 300 Balance -300 Current Meds Ordered / Administered: Current meds ordered / Administered 3 Generic Name Dose Route Start Last Admin Trade Name Divya PRN Reason Stop Dose Admin Acetaminophen 650 mg 12/31/23 15:36 Acetaminophen 325 Mg Tablet PO Q6H PRN PRN Pain 1-10 Or Fever >100.7 Furosemide 40 mg 01/01/24 10:00 12/31/23 15:56 Furosemide 40 Mg/4 Ml Vial IV 40 mg DAILY DONA Administration Protocol Glucagon 1 mg 12/31/23 15:36 Glucagon 1 Mg/Ml Syringe IM X1 PRN HYPOGLYCEMIA Protocol Heparin Sodium (Porcine) 5,000 unit 12/31/23 15:36 12/31/23 15:56 Heparin Injection (Vial) 5,000 Unit/Ml Vial SC 5,000 unit Q8 DONA Administration Dextrose 250 mls @ 0 mls/hr 12/31/23 15:36 Dextrose 10%-Water IV .Q0M PRN HYPOGLYCEMIA Protocol As Directed Piperacillin Sod/Tazobactam 50 mls @ 12.5 mls/hr 12/31/23 15:36 12/31/23 17:13 Sod 3.375 gm/ Sodium Chloride IV 12.5 mls/hr Q8 DONA Administration Sodium Chloride 250 mls @ 15 mls/hr 12/31/23 15:53 IV .[id number] PRN Additional IVPB Infusion Sodium Chloride 250 mls @ 15 mls/hr 12/31/23 15:53 IV .[id number] PRN Saline Flush Insulin Human Lispro 0 unit 12/31/23 18:00 12/31/23 17:30 Insulin Lispro 100 Unit/Ml Insuln.Pen SC 2 units Q6 [facility] Administration Protocol Morphine Sulfate 2 - 4 mg 12/31/23 15:36 Morphine 2 Mg/Ml Syringe IV Q3H PRN PRN Pain Score 6-10 Nitroglycerin 0.4 mg 12/31/23 15:36 Nitroglycerin (Inpatient Use) 0.4 Mg Tab.Subl SL Q5M PRN CARDIAC/CHEST PAIN Ondansetron HCl 4 mg 12/31/23 15:36 Ondansetron 4 Mg/2 Ml Vial IV Q8H PRN PRN NAUSEA/VOMITING Oxycodone HCl 5 mg 12/31/23 15:36 Oxycodone 5 Mg Tablet PO Q4H PRN PRN Pain Score 4-10 Sodium Chloride 10 - 40 ml 12/31/23 15:53 12/31/23 17:13 0.9% Saline Lock 10 Ml Syringe IV 10 ml UD PRN Administration SALINE FLUSH Physical Exam Const General Appearance: lethargic and ill appearing HEENT normocephalic Head and Scalp: normocephalic Eyes General Eye: normal appearance of both eyes Pupil: PERRL Chest inspection of chest normal Resp normal respiratory effort, no retractions and no use of accessory muscles Cardio regular rate, regular rhythm and S1 normal heart sound GI normal to inspection, nondistended, normoactive bowel sounds Neuro Sensorium / Orientation: somnolent Lab / Micro Data 12/31/23 11:30 12/31/23 14:14 Labs: Laboratory Results - last 24 hr 12/31/23 11:30: WBC 9.8, RBC 4.35 L, Hgb 12.5 L, Hct 41.0, MCV 94.3 H, MCH 28.7, MCHC 30.5 L, RDW Std Deviation 51.5 H, RDW Coeff of Audi 14.8 H, Plt Count 132 L, MPV 10.8, Immature Gran % (Auto) 0.400, Neut % (Auto) 71.5 H, Lymph % (Auto) 16.5 L, [place] % (Auto) 9.5, Eos % (Auto) 1.6, Baso % (Auto) 0.5, Absolute Neuts (auto) 7.0, Absolute Lymphs (auto) 1.61, Nucleated RBC % 0, Sodium 137, P otassium 5.8 H, Chloride 104, Carbon Dioxide 30.0, Anion Gap 3 L, BUN 61 H, C reatinine 1.54 H, Estim Creat Clear Calc 35.50, Est GFR (MDRD) Af Amer 57 L, Est GFR (MDRD) Non-Af 47 L, BUN/Creatinine Ratio 39.6 H, Glucose 204 H, Calcium 9.1, Troponin I High Sens 33, B-Natriuretic Peptide 109.1 H 12/31/23 13:09: Potassium Cancelled 12/31/23 14:14: Sodium 137, Potassium 4.6, Chloride 102, Carbon Dioxide 32.0, A nion Gap 3 L, BUN 58 H, Creatinine 1.48 H, Estim Creat Clear Calc 36.94, Est GFR (MDRD) Af Amer 59 L, Est GFR (MDRD) Non-Af 49 L, BUN/Creatinine Ratio 39.2 H, G lucose 203 H, Calcium 8.6 12/31/23 16:05: Troponin I High Sens 36 12/31/23 17:26: POC Glucose 181 H Micro: Microbiology 12/31/23 17:32 Urine, Clean Catch Legionella Antigen - Final 12/31/23 17:32 Urine, Clean Catch Streptococcus pneumoniae Antigen (M - Final 12/31/23 11:46 Mucosa - Nose SARS-CoV-2, Influenza & RSV (PCR) - Final ABG Data ABG results: ABG 12/31/23 12/31/23 12:01 13:37 Specimen Type ART ART Sample Site R Radial R Brach pH 7.27 L 7.31 L Bicarbonate Actual 33.5 H 31.9 H Total CO2 36 34 Base Excess 7 H 6 H O2 Saturation 94 L 91 L O2 % 12.0 60.0 ABG pCO2 72.9 H* 63.1 H ABG pO2 85 68 L Meliton Test Positive Positive O2 Delivery Device HFNC airvo Vent Mode Not entered Not entered Crit Call To/Read Back Yes Blood Gas Notified Whom le Blood Gas Notified Time 12:03:07 Clinical Comments 60l 60% Imaging Radiology Impression Chest X-Ray 12/31/23 12:25 IMPRESSION: Ill-defined opacity within the left mid and lower lung may reflect some combination of atelectasis, pneumonia and/or a neoplastic process with a possible effusion. Electronically Signed: Dayna Han MD at 12:54 EDT , Chest CTA 12/31/23 13:21 IMPRESSION: 1. No demonstrated pulmonary embolism or arterial dissection. 2. Prominent interstitial lung markings may suggest an infiltrate/pneumonia pattern. However, lymphangitic carcinoma should be considered. 3. Left lower lobe and left midlung infiltrate. This can be related to pneumonia. However it is worse an underlying new plastic processes of concern. 4. Diffuse mediastinal adenopathy. This is worse. Consider neoplastic process. 5. Small left pleural effusion. Electronically Signed: Jack Rolle MD at 14:27 EDT , Assessment and Plan . Assessment and plan: Acute hypoxic respiratory failure Congestive heart failure COPD CKD NSTEMI - wean airvo may need BIPAP at night - on zosyn if does not improve consider vanc for gram positive coverage - currently on lasix IV daily - steroids and nebs - needs echo - trend troponins , cardiology consult - monitor UOP Critical Care Time: 45 The entirety of this encounter was done via Telemedicine
--- NOTE | 2023-12-31 19:46 | ECHOLC_ITS ---
Reason For Study: CONGESTIVE HEART FAILURE Procedure This was a limited 2D transthoracic echocardiogram. The study was technically difficult. Contrast injection was performed. Patient was scanned in supine position during reflux assessment. Patient was on BiPap during exam. Exam performed portable in ICU/CCU. Left Ventricle Mildly dilated left ventricle. Severe generalized LV systolic dysfunction. Estimated EF 20 to 25%. Stage I diastolic dysfunction. Right Ventricle Normal RV size. Moderately severe global right ventricular systolic dysfunction. Atria There is moderate biatrial dilatation. Mitral Valve Trivial mitral valve insufficiency. Tricuspid Valve Normal tricuspid valve. Aortic Valve Trisinus/trileaflet aortic valve. Pulmonic Valve The pulmonic valve is not well visualized. Great Vessels Normal sized aortic root. Pericardium/Pleural No pericardial effusion. Medication Diluted definity 2ml given slow IV push to enhance endocardial definition. MMode/2D Measurements & Calculations LVIDd: 4.6 cm IVSd: 1.3 cm LVOT diam: 2.0 cm LVIDs: 3.5 cm LVPWd: 0.94 cm FS: 23.2 % LVOT area: 3.2 cm2 Ao root diam: 2.9 cm LAV(MOD-bp): 24.3 ml LVAd ap4: 34.7 cm2 LAV(MOD-bp) Indexed: 14.1 ml/m2 LVLd ap4: 8.3 cm LAV(MOD-sp2): 30.0 ml EDV(MOD-sp4): 119.8 ml LAV(MOD-sp4): 19.5 ml EDV(sp4-el): 123.7 ml LVAs ap4: 30.7 cm2 LVLs ap4: 7.6 cm ESV(MOD-sp4): 101.1 ml ESV(sp4-el): 105.7 ml EF(MOD-sp4): 15.6 % EF(sp4-el): 14.6 % LVAd ap2: 32.4 cm2 SV(MOD-sp4): 18.7 ml SV(MOD-sp2): 28.4 ml LVLd ap2: 7.7 cm EDV(MOD-sp2): 112.8 ml EDV(sp2-el): 115.5 ml LVAs ap2: 26.6 cm2 LVLs ap2: 7.1 cm ESV(MOD-sp2): 84.4 ml ESV(sp2-el): 84.9 ml EF(MOD-sp2): 25.2 % SV(sp4-el): 18.1 ml LA dimension(2D): 3.8 cm LA A4 area: 9.6 cm2 RA A4 area: 12.5 cm2 TAPSE: 1.2 cm Time Measurements MV dec time: 0.17 sec Doppler Measurements & Calculations MV E max vini: 55.2 cm/sec Lat Peak E' Vini: 5.4 cm/sec Med Peak E' Vini: 3.6 cm/sec MV A max vini: 98.7 cm/sec E/E' lat: 10.1 E/E' med: 15.4 MV E/A: 0.56 Ao V2 max: 128.4 cm/sec LV V1 max: 100.1 cm/sec MV dec slope: 327.3 cm/sec2 Ao max P.6 mmHg LV V1 max P.0 mmHg Ao V2 mean: 94.7 cm/sec LV V1 mean P.4 mmHg Ao mean P.8 mmHg LV V1 mean: 74.6 cm/sec Ao V2 VTI: 21.6 cm LV V1 VTI: 18.3 cm AV (velocity ratio): 0.85 GEOVANI(I,D): 2.7 cm2 GEOVANI(V,D): 2.5 cm2 SV(LVOT): 58.9 ml ECHO/Echo Limited w/Contrast Interpretation Summary Mildly dilated left ventricle. Severe generalized LV systolic dysfunction. Mary mated EF 20 to 25%. Stage I diastolic dysfunction. Moderately severe global right ventricular systolic dysfunction. The study was technically difficult. Ordering Physician: Yehuda Donato Referring Physician: MD Connie Mich Performed By: Olga Lambert RDCS and Student
[2023-12-31] MEDS: Vancomycin IV 1,000 MG/200 ML BAG 200 MG IV (20:35)
[2023-12-31] MEDS: 0.9% Normal Saline (250mL Bag) 250 ML 15 ML IV (20:36)
[2023-12-31 20:44] LABS: Troponin-I HS 35 pg/mL (3.0-78.0)
--- NOTE | 2023-12-31 21:07 | PCM.RX.CS ---
Consult Antibiotic Management Pharmacy has been consulted to manage selected antibiotic: Vancomycin Type of Intervention Type of Consult: New start Labs Labs: Sodium 137 mmol/L (136-145) 12/31/23 14:14 Potassium 4.6 mmol/L (3.5-5.1) 12/31/23 14:14 Chloride 102 mmol/L (98-107) 12/31/23 14:14 Carbon Dioxide 32.0 mmol/L (21.0-32.0) 12/31/23 14:14 Anion Gap 3 (5-15) L 12/31/23 14:14 BUN 58 mg/dL (7-18) H 12/31/23 14:14 Creatinine 1.48 mg/dL (0.70-1.30) H 12/31/23 14:14 Est GFR (MDRD) Af Amer 59 mL/min (>60) L 12/31/23 14:14 Est GFR (MDRD) Non-Af 49 mL/min (>60) L 12/31/23 14:14 BUN/Creatinine Ratio 39.2 RATIO (10-20) H 12/31/23 14:14 Glucose 203 mg/dL (74-106) H 12/31/23 14:14 Microbiology Microbiology: Microbiology 12/31/23 17:32 Urine, Clean Catch Legionella Antigen - Final 12/31/23 17:32 Urine, Clean Catch Streptococcus pneumoniae Antigen (M - Final 12/31/23 11:46 Mucosa - Nose SARS-CoV-2, Influenza & RSV (PCR) - Final Dosing Weight Weight used for dosin.2 kg Estimated Creatinine Clearance Estimated Creatinine Clearance: 36.9 Goal Trough Goal Trough: 15-20 mcg/mL Pharmacy Plan for Drug Dosing Pharmacy Plan for Drug Dosing: Pharmacy Service will continue to monitor and adjust dosing as required. 1000MG LOADING DOSE. 1000 Q24H TROUGH PRIOR TO 3RD DOSE Follow-Up Labs Follow-Up Labs: Trough: Vancomycin Date/Time Labs Ordered Labs to be done on [date and time ordered]: 01/01 @ 1999
[2024-01-01] VITALS (32 sets, daily range): BP systolic 90–139; BP diastolic 52–94; PULSE 73–99; RESP 12–28; TEMP 36.3–36.9; O2SAT 91–99; BMI 24.5
[2024-01-01 00:18] LABS: Bedside Glucose 141 mg/dL (74-106)
[2024-01-01] MEDS: 0.9% Saline Lock 10 ML Syringe IV ×7 (01:56→20:38)
[2024-01-01] MEDS: Furosemide 40 MG/4 ML Vial IV ×2 (01:58→08:40)
[2024-01-01 02:25] LABS: Absolute Lymphocyte Count 1.39 X10^3/uL (0.83-4.51); Absolute Neutrophil Count 5.5 X10^3/uL (2.0-7.7); Basophil# 0.03 X10^3/uL; Basophil% 0.4 % (0-1); Eosinophil# 0.04 X10^3/uL; Eosinophils% 0.5 % (0-5); Hematocrit 41.6 % (40-54); Hemoglobin 12.9 g/dL (13.0-16.5); Lymphocyte # 1.39 X10^3/ul (0.83-4.51); Mean Corpuscular Hgb 28.9 pg (27.0-32.0); Mean Corpuscular Volume 93.1 fL (80-94); Mean Platelet Vol. 10.5 fl (6.2-12.0); Monocyte# 0.72 X10^3/uL; Monocyte% 9.3 % (0-10); NRBC Flagged by Analyzer 0 % (0-5); Neutrophil # 5.52 X10^3/uL (2.7-7.7); Neutrophil % 71.3 % (47-70); Platelet Count 136 K/mm3 (150-450); RBC Distribution Width CV 14.8 % (11.6-14.6); RBC Distribution Width SD 50.9 fl (35.1-43.9); Red Blood Count 4.47 M/mm3 (4.6-6.2); White Blood Count 7.7 K/mm3 (4.4-11.0)
[2024-01-01 02:36] LABS: Anion Gap 5 (5-15); BUN 56 mg/dL (7-18); BUN/Creat Ratio 33.3 RATIO (10-20); Chloride 102 mmol/L (98-107); Creatinine, Serum 1.68 mg/dL (0.70-1.30); EST Glomerular Filtration Rate 42 mL/min (>60); Est Glom Filt Rate - Afr Amer 51 mL/min (>60); Estimated Creatinine Clearance 31.32 ml/min; Glucose 111 mg/dL (74-106); Potassium 4.5 mmol/L (3.5-5.1); Sodium Level 140 mmol/L (136-145)
--- NOTE | 2024-01-01 02:43 | CPS ---
AVAPS initiated due to poor VT
[2024-01-01 04:08] LABS: Magnesium 2.1 mg/dL (1.6-2.6); Phosphorus 3.8 mg/dL (2.5-4.9)
[2024-01-01 04:24] LABS: Allen Test Positive; Base Excess 10 mmol/L (-2 to +2); Bicarbonate 35.7 mmol/L (22-26); Blood Gas Specimen Type ART; Mode Not entered; O2 Delivery Device BiPAP; PO2 87 mmHG (75-100); RR 12; SITE R Brach; SO2 95 % (95-99); Total Carbon Dioxide 38 mmol/L; pCO2 69.8 mmHg (35-45); pH 7.32 (7.35-7.45)
[2024-01-01] MEDS: Piperacil/Tazobactam 3.375 GM in 0.9% Normal Saline (50mL MB+) 50 ML IV ×3 (05:24→21:42)
[2024-01-01] MEDS: Heparin Injection (Vial) 5,000 UNIT/ML VIAL 5000 UNIT SC ×3 (05:25→21:42)
[2024-01-01 05:47] LABS: Bedside Glucose 98 mg/dL (74-106)
[2024-01-01] MEDS: Morphine 2 MG/ML Syringe IV ×4 (06:51→20:38)
--- NOTE | 2024-01-01 07:21 | PN.CC_ITS ---
Assessment & Plan Assessment/Plan (1) Acute respiratory failure with hypoxia and hypercarbia: PLAN: Plan RECOMMENDATIONS: 1. Continue BiPAP therapy with naps and nightly. 2. Supplemental oxygen to maintain saturations at or above 90%. 3. Continue empiric antimicrobials. 4. Initiate scheduled bronchodilators and steroids. 5. Ongoing diuresis, as tolerated by hemodynamics and renal function. 6. Continue appropriate DVT prophylaxis. 7. Encourage incentive spirometer use and mobilize patient as tolerated. IMPRESSIONS: 1. Acute respiratory failure with hypoxemia and hypercapnia The patient was recently hospitalized under similar circumstances, with clinical concern for underlying decompensated heart failure and possible COPD in a state of exacerbation. 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 His chest imaging did certainly raise concern for underlying infection coupled with mediastinal adenopathy of unclear etiology. The adenopathy noted on his chest imaging may be reactive in nature secondary to underlying infection. However, this will need to be followed up on an outpatient pulmonary basis, with repeat chest imaging in 6 to 8 weeks. In the interim, it is certainly reasonable to continue empiric antibiotics and diuresis, as tolerated by hemodynamics and renal function. In addition, I am going to plan to start the patient on scheduled bronchodilators and steroids today. The patient can be weaned from BiPAP therapy this morning to nasal cannula supplemental oxygen as tolerated. Our goal is to maintain oxygen saturations at or above 90%. Cardiology consultation is currently pending as well. 2. History of tobacco dependency/coronary artery disease/chronic kidney disease/diabetes mellitus/history of esophageal stenosis Complicates care, management, recovery and prognosis. Continue current supportive care as noted above. This note was generated with [employer] dictation software. It may contain incorrect words, spelling, and punctuation that were not noted in checking the note before signing. Subjective Subjective The patient was seen and examined at the bedside this morning. Events from the last 24 hours have been reviewed. The patient is currently afebrile, hemodynamically stable and maintaining appropriate oxygen saturations on BiPAP with an FiO2 requirement of 40%. White count is normal this morning with a hemoglobin of 10.9 g/dL and platelet count of 136,000. Chemistry profile was notable for a bicarbonate of 33, BUN of 56 and creatinine of 1.68. The patient remains on antimicrobials and diuretics. Cardiology consultation is pending. The patient was recently admitted to the hospital with acute combined respiratory failure, which is felt to be secondary to a combination of underlying decompensated heart failure coupled with possible obstructive lung disease. The patient was ultimately discharged home on December 14, after being treated with antimicrobials for pneumococcal pneumonia and receiving IV diuretics. He also underwent EGD during that hospitalization due to the presence of esophageal stenosis which was dilated. Objective Data Objective Data The patient's most recent lab work, culture data and imaging studies have all been personally reviewed. Surface echocardiogram demonstrated a mildly dilated LV with an ejection fraction of 20 to 25% and severe global hypokinesis. COVID, influenza and RSV PCR's were negative. Blood and urine cultures are pending. Vital Signs: Vital Signs Temp Pulse Resp BP Pulse Ox O2 Del Method O2 Flow Rate 97.5 F L 86 18 139/69 H 92 Bi-pap 60 01/01/24 06:00 01/01/24 06:59 01/01/24 06:59 01/01/24 06:00 01/01/24 07:00 01/01/24 07:00 01/01/24 02:00 FiO2 40 01/01/24 07:00 Oxygen Flow Rate (L/min) 60 Oxygen Delivery Method Bi-pap Weight: 147 lb 4.301 oz Body Mass Index (BMI) 24.5 Intake & Output: Intake and Output for Last 24 Hours 12/30/23 12/31/23 01/01/24 23:59 23:59 23:59 Intake Total 555 / 555 50 / 50 Output Total 900 / 900 600 / 600 Balance -345 / -345 -550 / -550 Lab / Micro Data Attestation: I reviewed the patient's lab results. 01/01/24 02:16 01/01/24 02:16 Labs: Laboratory Results - last 24 hr 12/31/23 11:30: WBC 9.8, RBC 4.35 L, Hgb 12.5 L, Hct 41.0, MCV 94.3 H, MCH 28.7, MCHC 30.5 L, RDW Std Deviation 51.5 H, RDW Coeff of Audi 14.8 H, Plt Count 132 L, MPV 10.8, Immature Gran % (Auto) 0.400, Neut % (Auto) 71.5 H, Lymph % (Auto) 16.5 L, [place] % (Auto) 9.5, Eos % (Auto) 1.6, Baso % (Auto) 0.5, Absolute Neuts (auto) 7.0, Absolute Lymphs (auto) 1.61, Nucleated RBC % 0, Sodium 137, P otassium 5.8 H, Chloride 104, Carbon Dioxide 30.0, Anion Gap 3 L, BUN 61 H, C reatinine 1.54 H, Estim Creat Clear Calc 35.50, Est GFR (MDRD) Af Amer 57 L, Est GFR (MDRD) Non-Af 47 L, BUN/Creatinine Ratio 39.6 H, Glucose 204 H, Calcium 9.1, Troponin I High Sens 33, B-Natriuretic Peptide 109.1 H 12/31/23 13:09: Potassium Cancelled 12/31/23 14:14: Sodium 137, Potassium 4.6, Chloride 102, Carbon Dioxide 32.0, A nion Gap 3 L, BUN 58 H, Creatinine 1.48 H, Estim Creat Clear Calc 36.94, Est GFR (MDRD) Af Amer 59 L, Est GFR (MDRD) Non-Af 49 L, BUN/Creatinine Ratio 39.2 H, G lucose 203 H, Calcium 8.6 12/31/23 16:05: Troponin I High Sens 36 12/31/23 17:26: POC Glucose 181 H 12/31/23 20:15: Troponin I High Sens 35 12/31/23 23:54: POC Glucose 141 H 01/01/24 02:16: WBC 7.7, RBC 4.47 L, Hgb 12.9 L, Hct 41.6, MCV 93.1, MCH 28.9, M CHC 31.0 L, RDW Std Deviation 50.9 H, RDW Coeff of Audi 14.8 H, Plt Count 136 L, MPV 10.5, Immature Gran % (Auto) 0.500, Neut % (Auto) 71.3 H, Lymph % (Auto) 18.0 L, [place] % (Auto) 9.3, Eos % (Auto) 0.5, Baso % (Auto) 0.4, Absolute Neuts (auto) 5.5, Absolute Lymphs (auto) 1.39, Nucleated RBC % 0, Sodium 140, Potassium 4.5, Chloride 102, Carbon Dioxide 33.0 H, Anion Gap 5, BUN 56 H, C reatinine 1.68 H, Estim Creat Clear Calc 31.32, Est GFR (MDRD) Af Amer 51 L, Est GFR (MDRD) Non-Af 42 L, BUN/Creatinine Ratio 33.3 H, Glucose 111 H, Calcium 9.0, Phosphorus 3.8, Magnesium 2.1 01/01/24 05:23: POC Glucose 98 Micro: Microbiology 12/31/23 17:32 Urine, Clean Catch Legionella Antigen - Final 12/31/23 17:32 Urine, Clean Catch Streptococcus pneumoniae Antigen (M - Final 12/31/23 11:46 Mucosa - Nose SARS-CoV-2, Influenza & RSV (PCR) - Final ABG Data ABG results: ABG 12/31/23 12/31/23 01/01/24 12:01 13:37 04:18 Specimen Type ART ART ART Sample Site R Radial R Brach R Brach pH 7.27 L 7.31 L 7.32 L Bicarbonate Actual 33.5 H 31.9 H 35.7 H Total CO2 36 34 38 Base Excess 7 H 6 H 10 H O2 Saturation 94 L 91 L 95 O2 % 12.0 60.0 45.0 ABG pCO2 72.9 H* 63.1 H 69.8 H* ABG pO2 85 68 L 87 Meliton Test Positive Positive Positive Respiration Rate 12 O2 Delivery Device HFNC airvo BiPAP Vent Mode Not entered Not entered Not entered Tidal Volume 450.0 Crit Call To/Read Back Yes Yes Blood Gas Notified Whom dioni rosario Blood Gas Notified Time 12:03:07 04:20:32 Clinical Comments 60l 60% Radiography Diagnostic Testing: Radiology Impression Chest X-Ray 12/31/23 12:25 IMPRESSION: Ill-defined opacity within the left mid and lower lung may reflect some combination of atelectasis, pneumonia and/or a neoplastic process with a possible effusion. Electronically Signed: Dayna Han MD at 12:54 EDT , Chest CTA 12/31/23 13:21 IMPRESSION: 1. No demonstrated pulmonary embolism or arterial dissection. 2. Prominent interstitial lung markings may suggest an infiltrate/pneumonia pattern. However, lymphangitic carcinoma should be considered. 3. Left lower lobe and left midlung infiltrate. This can be related to pneumonia. However it is worse an underlying new plastic processes of concern. 4. Diffuse mediastinal adenopathy. This is worse. Consider neoplastic process. 5. Small left pleural effusion. Electronically Signed: Jack Rolle MD at 14:27 EDT Reading Location ID and State: [facility] / [place] , Service support , Physical Exam Const alert and no apparent distress Constitutional Narrative: Currently tolerating BiPAP. General Appearance: cooperative HEENT normocephalic and head/scalp atraumatic Eyes EOMs intact bilaterally and conjunctivae normal Neck supple General: trachea midline Chest inspection of chest normal Resp normal respiratory effort Auscultation: wheezes and diminished lung sounds Cardio regular rate and regular rhythm GI normal to inspection, nondistended, normoactive bowel sounds Extremity General Extremity: edema bilateral lower extremity Skin no rashes or lesions noted Neuro CN's II-XII intact bilaterally, moves all extremities and no focal motor deficits Psych cooperative and affect normal Charges/Coding Visit Charges Inpatient E&M: 44022 Subs Hosp L3
--- NOTE | 2024-01-01 08:36 | PCM.CONS.C ---
Assessment & Plan Assessment/Plan (1) Acute respiratory failure with hypoxia and hypercarbia: PLAN: Patient was admitted with acute respiratory failure with hypercapnia and hypoxia. He deteriorated and is now on BiPAP. Chest x-ray in CT are suggestive of neoplastic process. He was recently discharged after admission for pneumonia which is now worsened by CT criteria. This is being evaluated by the primary service and the production lapping machine operator. The patient does have a history of heart failure with reduced ejection fraction in the 20 to 25% range on a remote echocardiogram. Repeat echo is pending. The BNP however is only 109 and he is not obese. This would suggest that is not florid heart failure as an etiology of this respiratory depression. (2) HTN (hypertension): QUALIFIERS: Hypertension type: primary hypertension Qualified Code(s): I10 - Essential (primary) hypertension PLAN: Adequately controlled on his current medical therapy. As tolerated the Coreg should be continued he does have a history of renal failure and hyperkalemia on ANTOINE ARB therapy. (3) Chronic kidney disease: QUALIFIERS: Chronic kidney disease stage: unspecified stage Qualified Code(s): N18.9 - Chronic kidney disease, unspecified PLAN: Patient's electrolytes BUN and creatinine appear to be stable at this time. Creatinine clearance is 42 with a creatinine of 1.68. (4) Heart failure with reduced ejection fraction: PLAN: Patient's echocardiogram is pending at this time. His previous echo which showed an EF in the 20 to 25% range remotely. He has a known history of an ischemic cardiomyopathy with previous bypass graft surgery and subsequent stenting of the left main trunk in 2019. The BNP of 109 and troponins of 36 and 35 with a chronic left bundle branch block which is shows no new changes would suggest this is not primarily a cardiac issue. The patient should be continued on his current medical therapy as directed. (5) CAD (coronary artery disease): QUALIFIERS: Coronary Disease-Associated Artery/Lesion type: [place] artery [place] vs. transplanted heart: [place] heart Associated angina: without angina Qualified Code(s): I25.10 - Atherosclerotic heart disease of [place] coronary artery without angina pectoris PLAN: Currently the patient is asymptomatic as best I can tell. He is confused his troponins are negative x 2 sets his EKG shows his chronic left bundle branch block and normal sinus rhythm with occasional PVCs. Telemetry shows heart rate of 80 bpm range and normal sinus rhythm. We will check the echocardiogram. Would not recommend any significant changes at this point in time other than treating his respiratory situation per the production lapping machine operator and primary service. PLAN: Plan 1. Will evaluate 2D echocardiogram when available later today. 2. Continue respiratory therapy and pulmonary treatment and evaluation per the primary service and production lapping machine operator. 3. I did not feel that any further aggressive cardiac intervention is indicated at this point in time. 4. Please call if further assistance is needed. We will make additional recommendations pending the outcome of the 2D echocardiogram. HPI Consult Data Date of Consult: 01/01/24 HPI Narrative Reason for Consultation: Respiratory insufficiency with known history of coronary disease. HPI Narrative: JONAH ALEXANDRA, is a 78 M who presents with progressive shortness of breath. He was recently discharged in December 2023 after being admitted with a pneumonia. He was sent home on 4 L nasal cannula but became more progressively short of breath and return to the emergency department. There he was hypercapnic and hypoxic he was treated with Airvo and admitted to the intensive care unit. The respiratory distress progressed and he was placed on BiPAP. ABG showed pH of 7.32 pCO2 of 70 and a pO2 of 87. Currently the patient is resting comfortably on BiPAP. O2 sats 98% heart rate is 75 to 80 bpm in sinus rhythm. Blood pressure is 118/65. The patient is not able to give coherent answers to questions. The nursing staff reports that he has been confused. Patient has history of coronary artery disease status post CABG, possible left main stent after that, CKD with acute on chronic renal failure requiring dialysis for a brief period, history of CHF, hypertension. 2D echo done revealed an EF of 20 to 25% in the past. In 2018 coronary angiography revealed patent COLIN to LAD. He had severe left main stenosis for which he was sent to [facility] for PCI. Patient states he had PCI at that time. Currently the patient is denying any history of coronary disease or surgical interventions. He is confused. [facility] Medical History Dysphagia CHF exacerbation Hearing loss, left Hearing loss, right Anxiety Diabetes Chronic pain Kidney stones Kidney disease Former smoker Sleep apnea COPD (chronic obstructive pulmonary disease) Chest pain Myocardial infarct Hypertension DVT (deep venous thrombosis) Unable to walk Acute kidney injury Home Medications ?Medication ?Instructions ?Recorded ?Last Taken ?Type gabapentin 400 mg capsule 400 mg PO TID NERVE PAIN 08/20/18 12/05/23 History glipizide 5 mg tablet 5 mg PO .BEFORE MEALS DM 08/20/18 12/05/23 History sertraline 50 mg tablet 100 mg PO DAILY DEPRESSION 08/20/18 12/05/23 History carvedilol 3.125 mg tablet 3.125 mg PO BID blood pressure 08/21/18 12/05/23 Rx clopidogrel 75 mg tablet 75 mg PO DAILY anti platelet 08/21/18 12/05/23 Rx albuterol 90 mcg/actuation aerosol 90 mcg inhalation .4X A DAY PRN SOB 12/30/22 Unknown History inhaler amlodipine 10 mg tablet 10 mg PO DAILY blood pressure 12/30/22 Unknown History cholecalciferol (vitamin D3) 25 75 mcg PO DAILY vitamin 12/30/22 12/05/23 History mcg (1,000 unit) capsule cyanocobalamin (vitamin B-12) 1,000 mcg PO DAILY vitamin 12/30/22 12/05/23 History 1,000 mcg capsule hydrocodone-acetaminophen 5-325mg 1 tab PO TID pain 12/30/22 12/05/23 History 5mg-325mg mometasone 200 mcg/actuation HFA 2 puff inhalation BID breathing 12/30/22 12/05/23 History aerosol inhaler (Asmanex HFA) rosuvastatin 40 mg tablet (Crestor) 40 mg PO QHS cholesterol 12/30/22 12/04/23 History tiotropium 2.5 mcg-olodaterol 2.5 2 inh inhalation DAILY breathing 12/30/22 12/05/23 History mcg/actuation mist for inhalation (Stiolto Respimat) aspirin 81 mg tablet,delayed 81 mg PO DAILY heart meera 12/05/23 12/05/23 History release (Adult Aspirin Regimen) furosemide 40 mg tablet 40 mg PO DAILY diuretic 12/05/23 12/05/23 History amoxicillin 500 mg-potassium 1 tab PO BID 5 days #10 tabs 12/15/23 Unknown Rx clavulanate 125 mg tablet (Augmentin) furosemide 20 mg tablet 20 mg PO .evening 1 month #30 tabs 12/15/23 Unknown Rx insulin glargine 100 unit/mL 18 unit (0.18 mL) subcut QHS 30 12/15/23 12/04/23 Rx subcutaneous solution days #0 mL insulin lispro 100 unit/mL 5 unit (0.05 mL) subcut TIDAC 1 12/15/23 Unknown Rx subcutaneous pen (Humalog KwikPen month #15 mL (U-100) Insulin) insulin lispro 100 unit/mL See Protocol subcut ACHS #0 mL 12/15/23 Unknown Rx subcutaneous pen (Humalog KwikPen (U-100) Insulin) pantoprazole 40 mg tablet,delayed 40 mg PO BID 30 days #60 tabs 12/15/23 Unknown Rx release (Protonix) prednisone 20 mg tablet 40 mg (2 x 20 mg) PO BREAKFAST 5 12/15/23 Unknown Rx days #10 tabs sucralfate 1 gram tablet (Carafate) 1 g PO TID #90 tabs 12/22/23 Unknown Rx Allergy/AdvReac Type Severity Reaction Status Date / Time No Known Allergies Allergy Verified 12/31/23 11:35 Surgical History Hx of CABG History of coronary artery stent placement Social History household members: spouse Smoking Status: Former smoker ROS Review of Systems ROS Unobtainable: due to mental status Physical Exam Narrative BiPAP device in place. Const no apparent distress Constitutional Narrative: Awakens with verbal stimulation HEENT normocephalic Eyes EOMs intact bilaterally Neck Neck Narrative: Difficult to examine given the BiPAP. Chest Chest: midline sternotomy incision Resp Auscultation: crackles bilateral lower and rhonchi lower bilaterally Cardio regular rate, regular rhythm, S1 normal heart sound, S2 normal heart sound, no murmurs, no rub and no gallops Cardio Narrative: Very distant heart tones very difficult to auscultate the heart. GI soft to palpation Extremity Extremity Narrative: Bilateral lower extremity chronic venous changes. 1+ bilateral lower extremity edema. Skin General Skin Exam: ecchymosis Neuro Neuro Narrative: Patient arousable but confused and unable to answer questions appropriately. Psych Attention / Concentration: attention grossly impaired Risk Stratification Risk Stratification Applicable: Yes Age >/= 65: Yes >/= 3 CAD Risk Factors (HTN, HLD, DM, family hx of CAD, or current smoker): Yes Aspirin Use in the Past 7 Days: Yes Severe Angina (>/= episodes in 24 hours): No EKG ST Changes >/= 0.5mm: No Positive Cardiac Marker: No BRANDIE Risk Stratification Score: 3 BRANDIE % Risk: 13% Risk Charges/Coding Visit Charges Inpatient E&M: 11276 Init Hosp L3 Objective Data Vital Signs: Vital Signs Temp Pulse Resp BP Pulse Ox O2 Del Method O2 Flow Rate 97.5 F L 86 18 139/69 H 92 Bi-pap 60 01/01/24 06:00 01/01/24 06:59 01/01/24 06:59 01/01/24 06:00 01/01/24 07:00 01/01/24 07:00 01/01/24 02:00 FiO2 40 01/01/24 07:00 Oxygen Flow Rate (L/min) 60 Oxygen Delivery Method Bi-pap Weight: 147 lb 4.301 oz Body Mass Index (BMI) 24.5 Intake & Output: Intake and Output for Last 24 Hours 12/30/23 12/31/23 01/01/24 23:59 23:59 23:59 Intake Total 555 / 555 50 / 50 Output Total 900 / 900 600 / 600 Balance -345 / -345 -550 / -550 Lab / Micro Data Attestation: I reviewed the patient's lab results. 01/01/24 02:16 01/01/24 02:16 Labs: Laboratory Results - last 24 hr 12/31/23 11:30: WBC 9.8, RBC 4.35 L, Hgb 12.5 L, Hct 41.0, MCV 94.3 H, MCH 28.7, MCHC 30.5 L, RDW Std Deviation 51.5 H, RDW Coeff of Audi 14.8 H, Plt Count 132 L, MPV 10.8, Immature Gran % (Auto) 0.400, Neut % (Auto) 71.5 H, Lymph % (Auto) 16.5 L, [place] % (Auto) 9.5, Eos % (Auto) 1.6, Baso % (Auto) 0.5, Absolute Neuts (auto) 7.0, Absolute Lymphs (auto) 1.61, Nucleated RBC % 0, Sodium 137, Potassium 5.8 H, Chloride 104, Carbon Dioxide 30.0, Anion Gap 3 L, BUN 61 H, Creatinine 1.54 H, Estim Creat Clear Calc 35.50, Est GFR (MDRD) Af Amer 57 L, Est GFR (MDRD) Non-Af 47 L, BUN/Creatinine Ratio 39.6 H, Glucose 204 H, Calcium 9.1, Troponin I High Sens 33, B-Natriuretic Peptide 109.1 H 12/31/23 13:09: Potassium Cancelled 12/31/23 14:14: Sodium 137, Potassium 4.6, Chloride 102, Carbon Dioxide 32.0, Anion Gap 3 L, BUN 58 H, Creatinine 1.48 H, Estim Creat Clear Calc 36.94, Est GFR (MDRD) Af Amer 59 L, Est GFR (MDRD) Non-Af 49 L, BUN/Creatinine Ratio 39.2 H, Glucose 203 H, Calcium 8.6 12/31/23 16:05: Troponin I High Sens 36 12/31/23 17:26: POC Glucose 181 H 12/31/23 20:15: Troponin I High Sens 35 12/31/23 23:54: POC Glucose 141 H 01/01/24 02:16: WBC 7.7, RBC 4.47 L, Hgb 12.9 L, Hct 41.6, MCV 93.1, MCH 28.9, MCHC 31.0 L, RDW Std Deviation 50.9 H, RDW Coeff of Audi 14.8 H, Plt Count 136 L, MPV 10.5, Immature Gran % (Auto) 0.500, Neut % (Auto) 71.3 H, Lymph % (Auto) 18.0 L, [place] % (Auto) 9.3, Eos % (Auto) 0.5, Baso % (Auto) 0.4, Absolute Neuts (auto) 5.5, Absolute Lymphs (auto) 1.39, Nucleated RBC % 0, Sodium 140, Potassium 4.5, Chloride 102, Carbon Dioxide 33.0 H, Anion Gap 5, BUN 56 H, Creatinine 1.68 H, Estim Creat Clear Calc 31.32, Est GFR (MDRD) Af Amer 51 L, Est GFR (MDRD) Non-Af 42 L, BUN/Creatinine Ratio 33.3 H, Glucose 111 H, Calcium 9.0, Phosphorus 3.8, Magnesium 2.1 01/01/24 05:23: POC Glucose 98 Micro: Microbiology 12/31/23 17:32 Urine, Clean Catch Legionella Antigen - Final 12/31/23 17:32 Urine, Clean Catch Streptococcus pneumoniae Antigen (M - Final 12/31/23 11:46 Mucosa - Nose SARS-CoV-2, Influenza & RSV (PCR) - Final ABG Data ABG results: ABG 12/31/23 12/31/23 01/01/24 12:01 13:37 04:18 Specimen Type ART ART ART Sample Site R Radial R Brach R Brach pH 7.27 L 7.31 L 7.32 L Bicarbonate Actual 33.5 H 31.9 H 35.7 H Total CO2 36 34 38 Base Excess 7 H 6 H 10 H O2 Saturation 94 L 91 L 95 O2 % 12.0 60.0 45.0 ABG pCO2 72.9 H* 63.1 H 69.8 H* ABG pO2 85 68 L 87 Meliton Test Positive Positive Positive Respiration Rate 12 O2 Delivery Device HFNC airvo BiPAP Vent Mode Not entered Not entered Not entered Tidal Volume 450.0 Crit Call To/Read Back Yes Yes Blood Gas Notified Whom dioni rosario Blood Gas Notified Time 12:03:07 04:20:32 Clinical Comments 60l 60% Rhythm Strip Rhythm Strip: Sinus Rhythm Rate: 80 Cardiology Labs/Tests 12/31/23 11:30: WBC 9.8, RBC 4.35 L, Hgb 12.5 L, Hct 41.0, MCV 94.3 H, MCH 28.7, MCHC 30.5 L, Plt Count 132 L, MPV 10.8, Immature Gran % (Auto) 0.400, Neut % (Auto) 71.5 H, Lymph % (Auto) 16.5 L, [place] % (Auto) 9.5, Eos % (Auto) 1.6, Baso % (Auto) 0.5, Absolute Neuts (auto) 7.0, Nucleated RBC % 0, Sodium 137, Potassium 5.8 H, Chloride 104, Carbon Dioxide 30.0, Anion Gap 3 L, BUN 61 H, Creatinine 1.54 H, Est GFR (MDRD) Af Amer 57 L, Est GFR (MDRD) Non-Af 47 L, BUN/Creatinine Ratio 39.6 H, Glucose 204 H, Calcium 9.1, B-Natriuretic Peptide 109.1 H 12/31/23 12:01: pH 7.27 L, Bicarbonate Actual 33.5 H, Base Excess 7 H, O2 Saturation 94 L, ABG pCO2 72.9 H*, ABG pO2 85, [place] Test Positive 12/31/23 13:09: Potassium Cancelled 12/31/23 13:37: pH 7.31 L, Bicarbonate Actual 31.9 H, Base Excess 6 H, O2 Saturation 91 L, ABG pCO2 63.1 H, ABG pO2 68 L, [place] Test Positive 12/31/23 14:14: Sodium 137, Potassium 4.6, Chloride 102, Carbon Dioxide 32.0, Anion Gap 3 L, BUN 58 H, Creatinine 1.48 H, Est GFR (MDRD) Af Amer 59 L, Est GFR (MDRD) Non-Af 49 L, BUN/Creatinine Ratio 39.2 H, Glucose 203 H, Calcium 8.6 01/01/24 02:16: WBC 7.7, RBC 4.47 L, Hgb 12.9 L, Hct 41.6, MCV 93.1, MCH 28.9, MCHC 31.0 L, Plt Count 136 L, MPV 10.5, Immature Gran % (Auto) 0.500, Neut % (Auto) 71.3 H, Lymph % (Auto) 18.0 L, [place] % (Auto) 9.3, Eos % (Auto) 0.5, Baso % (Auto) 0.4, Absolute Neuts (auto) 5.5, Nucleated RBC % 0, Sodium 140, Potassium 4.5, Chloride 102, Carbon Dioxide 33.0 H, Anion Gap 5, BUN 56 H, Creatinine 1.68 H, Est GFR (MDRD) Af Amer 51 L, Est GFR (MDRD) Non-Af 42 L, BUN/Creatinine Ratio 33.3 H, Glucose 111 H, Calcium 9.0, Phosphorus 3.8, Magnesium 2.1 01/01/24 04:18: pH 7.32 L, Bicarbonate Actual 35.7 H, Base Excess 10 H, O2 Saturation 95, ABG pCO2 69.8 H*, ABG pO2 87, Mel[place] Test Positive Rhythm: EKG: ECHO: Stress Test: Cardiac Cath: PCI: CT Surgery: Holter monitor: EPS: PPM: CXR: Chest CT Scan: Radiography Diagnostic Testing: Radiology Impression Chest X-Ray 12/31/23 12:25 IMPRESSION: Ill-defined opacity within the left mid and lower lung may reflect some combination of atelectasis, pneumonia and/or a neoplastic process with a possible effusion. Electronically Signed: Dayna Han MD at 12:54 EDT , Chest CTA 12/31/23 13:21 IMPRESSION: 1. No demonstrated pulmonary embolism or arterial dissection. 2. Prominent interstitial lung markings may suggest an infiltrate/pneumonia pattern. However, lymphangitic carcinoma should be considered. 3. Left lower lobe and left midlung infiltrate. This can be related to pneumonia. However it is worse an underlying new plastic processes of concern. 4. Diffuse mediastinal adenopathy. This is worse. Consider neoplastic process. 5. Small left pleural effusion. Electronically Signed: Jack Rolle MD at 14:27 EDT ,
[2024-01-01] MEDS: Ipratropium/Albuterol Sulfate 3 ML AMPUL.NEB INHALATION ×3 (12:00→19:57)
[2024-01-01 12:08] LABS: Bedside Glucose 98 mg/dL (74-106)
--- NOTE | 2024-01-01 12:30 | CASEMGMT ---
REGLA GUTIERREZ chart review: Patient was admitted 12/04-12/15/23 for CHF exacerbation. See REGLA GUTIERREZ assessment from 12/06/23. Patient was discharged to home with new home oxygen at 3lpm at rest and 5lpm with ambulation with [employer], [facility], family support, and follow-up plans in place. Patient returned to [facility] ED on 12/30 for increased shortness of breath and requiring Airvo at 70%. REGLA GUTIERREZ in to discuss readmission and discharge planning with patient. Patient states he was taking medications as prescribed and following fluid and sodium restrictions. Patient states that [facility] has been following. Patient was scheduled for PCP appt on 12/21 and belt machine operator on 12/25. Patient did not attend follow-u appts as he did not feel well. REGLA GUTIERREZ discussed possible assisted living in the future for him and his , patient voiced interest. Patient did not oppose SNF at discharge if needed, will follow therapy progress. REGLA GUTIERREZ spoke with daughter Sara, who also voiced interest in assisted living. REGLA GUTIERREZ to reach out to for assisted living information and resources. CM will continue to follow this patient and plan for a safe discharge.
[2024-01-01] MEDS: 0.9% Normal Saline (250mL Bag) 250 ML 15 ML IV (13:08)
--- NOTE | 2024-01-01 14:05 | PN_ITS ---
Subjective Subjective Patient seen and examined. She was on BiPAP at time of my review. He was transitioned to Airvo. He had no active complaints and denied any chest pain, palpitations, dizziness, nausea or vomiting. Review of systems otherwise negative. Objective Data Objective Data Vital Signs: Vital Signs Temp Pulse Resp BP Pulse Ox O2 Del Method O2 Flow Rate 98.5 F 96 17 92/65 98 Airvo 60 01/01/24 12:00 01/01/24 13:00 01/01/24 13:00 01/01/24 13:00 01/01/24 13:00 01/01/24 13:00 01/01/24 02:00 FiO2 45 01/01/24 13:00 Oxygen Flow Rate (L/min) 60 Oxygen Delivery Method Airvo Weight: 147 lb 4.301 oz Body Mass Index (BMI) 24.5 Intake & Output: Intake and Output for Last 24 Hours 12/30/23 12/31/23 01/01/24 23:59 23:59 23:59 Intake Total 555 / 555 320 / 320 Output Total 900 / 900 1974 / 1974 Balance -345 / -345 -1655 / -1655 Lab / Micro Data 01/01/24 02:16 01/01/24 02:16 Labs: Laboratory Results - last 24 hr 12/31/23 14:14: Sodium 137, Potassium 4.6, Chloride 102, Carbon Dioxide 32.0, A nion Gap 3 L, BUN 58 H, Creatinine 1.48 H, Estim Creat Clear Calc 36.94, Est GFR (MDRD) Af Amer 59 L, Est GFR (MDRD) Non-Af 49 L, BUN/Creatinine Ratio 39.2 H, G lucose 203 H, Calcium 8.6 12/31/23 16:05: Troponin I High Sens 36 12/31/23 17:26: POC Glucose 181 H 12/31/23 20:15: Troponin I High Sens 35 12/31/23 23:54: POC Glucose 141 H 01/01/24 02:16: WBC 7.7, RBC 4.47 L, Hgb 12.9 L, Hct 41.6, MCV 93.1, MCH 28.9, M CHC 31.0 L, RDW Std Deviation 50.9 H, RDW Coeff of Audi 14.8 H, Plt Count 136 L, MPV 10.5, Immature Gran % (Auto) 0.500, Neut % (Auto) 71.3 H, Lymph % (Auto) 18.0 L, [place] % (Auto) 9.3, Eos % (Auto) 0.5, Baso % (Auto) 0.4, Absolute Neuts (auto) 5.5, Absolute Lymphs (auto) 1.39, Nucleated RBC % 0, Sodium 140, Potassium 4.5, Chloride 102, Carbon Dioxide 33.0 H, Anion Gap 5, BUN 56 H, C reatinine 1.68 H, Estim Creat Clear Calc 31.32, Est GFR (MDRD) Af Amer 51 L, Est GFR (MDRD) Non-Af 42 L, BUN/Creatinine Ratio 33.3 H, Glucose 111 H, Calcium 9.0, Phosphorus 3.8, Magnesium 2.1 01/01/24 05:23: POC Glucose 98 01/01/24 11:47: POC Glucose 98 Micro: Microbiology 12/31/23 17:32 Urine, Clean Catch Legionella Antigen - Final 12/31/23 17:32 Urine, Clean Catch Streptococcus pneumoniae Antigen (M - Final 12/31/23 11:46 Mucosa - Nose SARS-CoV-2, Influenza & RSV (PCR) - Final ABG Data ABG results: ABG 01/01/24 04:18 Specimen Type ART Sample Site R Brach pH 7.32 L Bicarbonate Actual 35.7 H Total CO2 38 Base Excess 10 H O2 Saturation 95 O2 % 45.0 ABG pCO2 69.8 H* ABG pO2 87 Meliton Test Positive Respiration Rate 12 O2 Delivery Device BiPAP Vent Mode Not entered Tidal Volume 450.0 Crit Call To/Read Back Yes Blood Gas Notified Whom Blood Gas Notified Time 04:20:32 Radiography Diagnostic Testing: Radiology Impression Chest CTA 12/31/23 13:21 IMPRESSION: 1. No demonstrated pulmonary embolism or arterial dissection. 2. Prominent interstitial lung markings may suggest an infiltrate/pneumonia pattern. However, lymphangitic carcinoma should be considered. 3. Left lower lobe and left midlung infiltrate. This can be related to pneumonia. However it is worse an underlying new plastic processes of concern. 4. Diffuse mediastinal adenopathy. This is worse. Consider neoplastic process. 5. Small left pleural effusion. Electronically Signed: Jack Rolle MD at 14:27 EDT Reading Location ID and State: [facility] / [place] , Service support , Echocardiogram 12/31/23 19:46 Interpretation Summary Mildly dilated left ventricle. Severe generalized LV systolic dysfunction. Estimated EF 20 to 25%. Stage I diastolic dysfunction. Moderately severe global right ventricular systolic dysfunction. The study was technically difficult. Ordering Physician: Yehuda Donato Referring Physician: MD Connie Mich Performed By: Olga Lambert RDCS and Student Rhythm Strip Rhythm Strip: Sinus Rhythm Rate: 80 Physical Exam Const alert and oriented x3 Constitutional Narrative: frail, lethargic General Appearance: cooperative HEENT normocephalic, head/scalp atraumatic, moist oral mucous membranes and oropharynx normal Eyes PERRL and EOMs intact bilaterally Neck no lymphadenopathy and supple Resp Resp Narrative: Moderately diminished breath sounds bibasilarly. Bilateral crackles. On Airvo Cardio regular rate, regular rhythm, S1 normal heart sound, S2 normal heart sound and no murmurs GI normal to inspection, nondistended, normoactive bowel sounds, soft to palpation, non-tender and non-distended Extremity normal to inspection, full ROM and no clubbing, cyanosis or edema General Extremity: no tenderness to palpation of joints or extremities Skin General Skin Exam: no breakdown Neuro oriented x3, CN's II-XII intact bilaterally, moves all extremities and no focal motor deficits Sensorium / Orientation: awake Psych Psych Narrative: lethargic Assessment & Plan Assessment/Plan (1) Acute respiratory failure with hypoxia and hypercarbia: PLAN: Plan Acute on chronic hypoxic and hypercapnic respiratory failure due to probable pneumonia * Patient was recently discharged home a few weeks ago after being managed for pneumonia. He was discharged on 4 L of oxygen. * He went to minute continuously felt short of breath so he came into the ED. He was requiring up to 15 L of oxygen and is now on Airvo. * CXR showed ill defined opacity within hte left mid and lowerr lung which may reflect some combination of atelectasis, pneumonia and/or neoplastic process with a possible effusion. * COVID, influenza and RSV are negative * Was on BiPAP this morning but subsequently transition to Airvo. On IV Zosyn. * Urine for strep and Legionella negative. * Critical care on board. * CTA of the chest showed no PE or arterial dissection and showed prominent interstitial lung markings which may suggest an infiltrate or pneumonia part in the lymphangitic carcinoma should be considered as well as a left lower lobe infiltrate and middle lobe infiltrate on the left side. He also had diffuse mediastinal adenopathy. * Titrate oxygen to maintain saturation above 90%. * Speech therapy consulted. * Urine for strep and Legionella negative. * * * #History of esophageal stenosis: * Had EGD on 12/15/2023 which showed benign-appearing esophageal stenosis which was dilated and grade a reflux esophagitis as well as a medium size hiatal hernia and chronic gastritis. * Continue PPI #History of CAD. Was admitted with non-STEMI recently. On aspirin and high intensity statin. 2D echo showed EF of 20 to 25% and severe global hypokinesis. #Type 2 diabetes mellitus:hold long acting insulin for now. ISS. Accuchecks q6hrly as he is NPO #Hyperlipidemia: On statin #Depression: On sertraline #CKD stage IV: Used to be on dialysis but this was discontinued in April 2023. Creatinine today is 1.68. DVT prophylaxis: heparin Code status: full code * Charges/Coding Visit Charges Inpatient E&M: 57774 Subs Hosp L3
[2024-01-01 17:40] LABS: Bedside Glucose 137 mg/dL (74-106)
[2024-01-01] MEDS: Vancomycin IV 1,000 MG/200 ML BAG 200 MG IV (20:38)
[2024-01-02] VITALS (28 sets, daily range): BP systolic 91–148; BP diastolic 49–71; PULSE 80–93; RESP 12–28; TEMP 35.6–36.6; O2SAT 88–973; BMI 24.8
[2024-01-02 00:33] LABS: Bedside Glucose 131 mg/dL (74-106)
[2024-01-02 02:26] LABS: Absolute Lymphocyte Count 1.21 X10^3/uL (0.83-4.51); Absolute Neutrophil Count 6.7 X10^3/uL (2.0-7.7); Basophil# 0.04 X10^3/uL; Basophil% 0.5 % (0-1); Eosinophil# 0.06 X10^3/uL; Eosinophils% 0.7 % (0-5); Hematocrit 44.8 % (40-54); Hemoglobin 13.8 g/dL (13.0-16.5); Lymphocyte # 1.21 X10^3/ul (0.83-4.51); Lymphocyte % 13.7 % (19-41); Mean Corp Hgb Conc 30.8 g/dL (32-36); Mean Corpuscular Hgb 28.8 pg (27.0-32.0); Mean Corpuscular Volume 93.5 fL (80-94); Mean Platelet Vol. 11.2 fl (6.2-12.0); Monocyte# 0.84 X10^3/uL; Monocyte% 9.5 % (0-10); NRBC Flagged by Analyzer 0 % (0-5); Neutrophil # 6.65 X10^3/uL (2.7-7.7); Neutrophil % 75.4 % (47-70); Platelet Count 147 K/mm3 (150-450); RBC Distribution Width CV 15.2 % (11.6-14.6); RBC Distribution Width SD 52.7 fl (35.1-43.9); Red Blood Count 4.79 M/mm3 (4.6-6.2); White Blood Count 8.8 K/mm3 (4.4-11.0)
[2024-01-02 02:58] LABS: Anion Gap 7 (5-15); BUN 59 mg/dL (7-18); BUN/Creat Ratio 28.5 RATIO (10-20); Calcium,Total 9.4 mg/dL (8.5-10.1); Chloride 100 mmol/L (98-107); Creatinine, Serum 2.07 mg/dL (0.70-1.30); EST Glomerular Filtration Rate 33 mL/min (>60); Est Glom Filt Rate - Afr Amer 40 mL/min (>60); Estimated Creatinine Clearance 25.42 ml/min; Glucose 120 mg/dL (74-106); Potassium 5.5 mmol/L (3.5-5.1); Sodium Level 140 mmol/L (136-145)
[2024-01-02] MEDS: Heparin Injection (Vial) 5,000 UNIT/ML VIAL 5000 UNIT SC ×3 (05:41→20:58)
[2024-01-02] MEDS: Piperacil/Tazobactam 3.375 GM in 0.9% Normal Saline (50mL MB+) 50 ML IV ×3 (05:41→23:15)
[2024-01-02 06:02] LABS: Bedside Glucose 118 mg/dL (74-106)
[2024-01-02] MEDS: Furosemide 40 MG/4 ML Vial IV ×2 (06:32→09:58)
[2024-01-02] MEDS: Insulin Lispro 100 UNIT/ML INSULN.PEN 10 UNIT SC (06:32)
[2024-01-02] MEDS: Dextrose 10%-Water 250 ML 999 ML IV (06:32)
[2024-01-02] MEDS: 0.9% Saline Lock 10 ML Syringe IV ×3 (06:51→20:56)
[2024-01-02] MEDS: 0.9% Normal Saline (250mL Bag) 250 ML 15 ML IV (06:52)
--- NOTE | 2024-01-02 09:04 | ST.MBS ---
Modified Barium Swallow Patient Information Study Date: 01/02/24 Study Time: 08:00 Direct Billable Minutes: 115 Total Minutes procedure & reportin Diagnosis: Dysphagia R13.10; CHF exacerbation I50.9 Referring Physician: Rubina Townsend Reason for Referral: Objectively assess swallow function, assess risk for aspiration, and determine recommendations for least restrictive diet textures and compensatory strategies to improve safety of swallow. Medical History: Patient has PMH including CHF exacerbation, Diabetes, COPD, ND, Former smoker, BL HL, Dysphagia, Kidney disease, DVT, JOHN, HTN. He had recent hospitalization from 12/05/23-12/15/23 for CHF exacerbation, NSTEMI, and Acute respiratory failure with hypoxia and hypercarbia amongst other comorbidities. During this hospitalization, the patient had MBSS completed, which revealed moderate oropharyngeal dysphagia and esophageal dysphagia with recommendations for the following diet and strategies: [facility]-thick Liquids (FULL MILDLY THICK LIQUID DIET); Comment: After GI consult, patient is ok to advance to Easy to Chew textures if cleared by Dr. Chew. Strategies: Small Bites, Small Sips, No Straws, Slow Rate, Chin Tuck, Sitting upright and Remain sitting upright for 30 minutes after PO intake; Supervision: 1:1 Close Supervision. Patient underwent EGD 12/15/2023 revealing Benign-appearing esophageal stenosis. Dilated. - LA Grade A reflux esophagitis with no bleeding. Biopsied. - Medium-sized hiatal hernia. - Chronic gastritis. Biopsied. - Normal second portion of the duodenum. Recommendation: - Discharge patient to home. - Resume previous diet. - Continue present medications. - Await pathology results. - Use Prilosec (omeprazole) 40 mg PO BID for 12 weeks. [employer] unable to locate diet texture recommendations at discharge in EMR, as he discharged home after EGD. [employer] spoke with patient during current hospitalization and the patient was unable to recall if he had been drinking thin or thickened liquids at home. He was also unsure about use of chin tuck at home with liquids or follow-up with any therapies after recent hospitalization. The patient has been re-admitted to [facility] 12/31/2023 for shortness of breath. From recent hospitalization, he was discharged home on 4L of oxygen, but he had been getting more short of breath so he came in to the ED. Patient had to be put on Airvo. Chest x-ray in the ED showed ill-defined opacity within the left mid and lower lung which may reflect combination of atelectasis, pneumonia and/or neoplastic process with a possible effusion. He has been admitted to be managed for acute on chronic hypoxic and hypercapnic respiratory failure due to probable pneumonia as well as heart failure. He was made NPO and referred for BSE to assess concerns for aspiration. [employer] recommended repeat MBSS due to known hx of silent aspiration. Current Diet Ordered: NPO Dentition: Edentulous Mental Status: Impaired (Able to follow commands for evaluation; however, poor historian of recent events related to swallowing) Respiratory Status: Oxygenating on 4L/M nasal cannula (6L/M via nasal cannula) Penetration-Aspiration Scale Penetration-Aspiration Scale: OBJECTIVE ASSESSMENT OF SWALLOW FUNCTION (QUANTITATIVE ? PER TRIAL): PENETRATION / ASPIRATION SCALE (RUVALCABA): 1 = does not enter airway 2 = enters airway/above vocal folds/ejected 3 = enters airway/above vocal folds/not ejected 4 = enters airway/contacts vocal folds/ejected 5 = enters airway/contacts vocal folds/not ejected 6 = enters airway/below vocal folds/ejected 7 = enters airway/below vocal folds/not ejected despite effort 8 = enters airway/below vocal folds/no effort VIDEOFLOROSCOPIC SCALE SCORE (RUVALCABA): Grade I = aspiration of material that has penetrated into the laryngeal vestibule, intact cough reflex Grade II = aspiration < 10 % of the bolus, intact cough reflex Grade III = aspiration of < 10 % of the bolus, reduced cough reflex or aspiration of > 10 % of the bolus, intact cough reflex Grade IV = aspiration of > 10 % of the bolus, reduced cough reflex Penetration-Aspiration Scale Score Thin Liquid via teaspoon: Result: 1= does not enter airway Thin Liquid via teaspoon Trial 2: Result: 8= enters airway/below vocal folds/no effort [facility] Thick Liquid via teaspoon: Result: 1= does not enter airway [facility] Thick Liquid via small single sip: cup: Result: 3= enters airways/above vocal folds/not ejected Pudding via teaspoon: Result: 1= does not enter airway Comment: Esophageal screen - Retention of pudding throughout the esophagus. [facility] Thick Liquid via small single sip: cup Trial 2: Result: 1= does not enter airway Comment: Esophageal screen - Liquid wash somewhat improved retention of barium pudding in the esophagus. 05/11 cookie: Result: 1= does not enter airway [facility] Thick Liquid via small single sip: cup Trial 3: Result: 5= enters airways/contacts vocal folds/not ejected Comment: Reflexive throat clear. Cued cough and re-swallow was somewhat effective. Thin Liquid via small single sip: cup Effortful swallow: Result: 2= enter airway/above vocal folds/ejected Thin Liquid via small single sip: cup Effortful swallow Trial 2: Result: 1= does not enter airway Honey Thick Liquid via small single sip: cup: Result: 1= does not enter airway Oral Phase Labial Seal: No Labial Escape Tongue Control During Bolus Hold: Posterior escape of less than half of bolus Bolus Preparation/Mastication: Slow prolonged chewing/mashing with complete recollection Bolus Transport/Lingual Motion: Slowed tongue motion Oral Residue: Residue collection on oral structures Pharyngeal Phase Initiation of Pharyngeal Swallow: Bolus head in pyriforms (mildly thick liquids spilled to the laryngeal vestibule prior to swallow onset) Soft Palate Elevation: No bolus between soft palate and pharyngeal wall Laryngeal Elevation: Partial superior movement thyroid cart/partial apprx aryt-epig petiole Anterior Hyoid Excursion: Partial anterior movement Epiglottic Movement: Partial inversion (inconsistent) Laryngeal Vestibule Closure at Height of Swallow: Incomplete; narrow column of air/contrast in laryngeal vestibule Pharyngeal Stripping Wave: Present - diminished (poor) Pharyngoesophageal Segment Opening: Parital distension and partial duration; parital obstruction of flow Tongue Base Retraction: Wide column of contrast between tongue base & post. pharyngeal wall Pharyngeal Residue: Collection of residue within or on pharyngeal structures Esophageal Phase Esophageal Clearance: Esophageal retention Treatment Strategies Effects of treatment strategies attemped:: Effortful swallow = effective Liquid wash = somewhat effective Diagnosis/Impression Diagnosis: Moderate oropharyngeal dysphagia R13.12; Esophageal dysphagia R13.14 Impression: The oral phase is primarily marked by... -Decreased bolus control with premature posterior loss of <1/2 the thin liquid bolus (tsp) to the laryngeal vestibule and vocal folds prior to swallow onset with resulting aspiration. Pt also had premature posterior loss of <1/2 the mildly thick liquid bolus to the laryngeal vestibule prior to swallow onset increasing risk for preprandial aspiration. -Slowed tongue motion for A-P transport. -Slowed, but complete mastication of 1/4 cookie. The pharyngeal phase is primarily marked by... -Delayed swallow onset. -Decreased airway closure due to decreased anterior hyoid excursion, inconsistent epiglottic inversion, and laryngeal elevation. -Mild-moderate pharyngeal residues due to decreased pharyngeal stripping wave, tongue base retraction, and UES opening/duration. -SILENT aspiration of thin liquids via tsp. Deep laryngeal penetration of mildly thick liquids via small sip by cup placing the patient at increased risk for post prandial aspiration. Effortful swallow was most effective in decreasing risk for aspiration. The esophageal phase is primarily marked by... -Retention of pudding in the esophagus, which somewhat improved with thin liquid wash. Recommendations Diet: Mechanical Soft Textures (Soft and bite size textures - IDDSI Level 6) and Thin Liquids Comment: Frequent oral care; STOP eating/drinking if increased s/s of reflux, sensation of retention, or regurgitation and resume at a later time. Compensatory Strategies: Small Bites, Small Sips (HARD/EFFORTFUL SWALLOWS W/ ALL SIPS), Slow Rate, Alternate bites/solids and sips/liquids (1:1 RATIO), Sitting upright and Remain sitting upright for 30 minutes after PO intake (60min after meals) Supervision: 1:1 Close Supervision (ALL FOOD/DRINK) Recommend Repeat Modified Barium Swallow: Yes (2-4 weeks after implementation of oropharyngeal exercise program) Need for Skilled Speech Therapy Services: Yes Comment: POC initiated during this acute stay for 5-7X/week. POC to include the following: -Train the patient in use of strategies to decrease risk for aspiration and reflux aspiration. -Ongoing assessment of diet tolerance of recommended textures. If worsening respiratory status or poor adherence to recommended aspiration precautions, please consider diet downgrade to honey/moderately thick liquids. -Train the patient in oropharyngeal exercise program to improve tongue base retraction, pharyngeal contraction, and airway closure (Loren, Effortful, Patrice, CTAR). Goals added to ST Dysphagia POC: LTG 1 - The patient will consume least restrictive diet textures without overt s/s of aspiration or s/s of esophageal retention/discomfort with minimal verbal cues to decrease risk for aspiration. STG 1 - The patient will complete an oropharyngeal exercise program with minimal verbal cues to improve strength, ROM, and coordination of swallowing mechanism. STG 2 - The patient will demonstrate use or verbalize awareness of compensatory strategies with minimal verbal cues to decrease risk for aspiration. Recommended Referrals: GI Consult ([employer] messaged day care teacher, Dr. Chew, to please review to MBSS to see if inpatient GI intervention is warranted given recent EGD, but continued esophageal retention. Awaiting reply.) Education Completed: 1. Described result of evaluation. and 7. Pt requires further education on strategies & risks. Status Active ST Patient: Active Contact Information [facility] Speech Therapy:: Beverly West M.A. [facility]? Speech-Language Pathologist?? [facility] [address] [place] [address]? [email or web address]?? [phone]
--- NOTE | 2024-01-02 09:39 | PN_ITS ---
Subjective Subjective Patient seen and examined. He has been weaned down to 6 L of oxygen. He still complains of subjective shortness of breath and is still coughing. He denies any chest pain or palpitations, dizziness or nausea or vomiting or any other symptoms. Review of systems otherwise negative. Objective Data Objective Data Vital Signs: Vital Signs Temp Pulse Resp BP Pulse Ox O2 Del Method O2 Flow Rate 96.0 F L 90 20 H 127/65 H 100 Nasal Cannula 6 01/02/24 08:00 01/02/24 08:00 01/02/24 08:00 01/02/24 08:00 01/02/24 08:00 01/02/24 08:00 01/02/24 08:00 FiO2 45 01/02/24 06:00 Oxygen Flow Rate (L/min) 6 Oxygen Delivery Method Nasal Cannula Weight: 149 lb 0.52 oz Body Mass Index (BMI) 24.8 Intake & Output: Intake and Output for Last 24 Hours 12/31/23 01/01/24 01/02/24 23:59 23:59 23:59 Intake Total 555 / 555 570 / 570 425 / 425 Output Total 900 / 900 2375 / 2475 600 / 600 Balance -345 / -345 -1805 / -1905 -175 / -175 Lab / Micro Data 01/02/24 02:16 01/02/24 02:16 Labs: Laboratory Results - last 24 hr 01/01/24 11:47: POC Glucose 98 01/01/24 17:18: POC Glucose 137 H 01/02/24 00:13: POC Glucose 131 H 01/02/24 02:16: WBC 8.8, RBC 4.79, Hgb 13.8, Hct 44.8, MCV 93.5, MCH 28.8, MCHC 30.8 L, RDW Std Deviation 52.7 H, RDW Coeff of Audi 15.2 H, Plt Count 147 L, MPV 11.2, Immature Gran % (Auto) 0.200, Neut % (Auto) 75.4 H, Lymph % (Auto) 13.7 L, [place] % (Auto) 9.5, Eos % (Auto) 0.7, Baso % (Auto) 0.5, Absolute Neuts (auto) 6.7, Absolute Lymphs (auto) 1.21, Nucleated RBC % 0, Sodium 140, Potassium 5.5 H , Chloride 100, Carbon Dioxide 33.0 H, Anion Gap 7, BUN 59 H, Creatinine 2.07 H, Estim Creat Clear Calc 25.42, Est GFR (MDRD) Af Amer 40 L, Est GFR (MDRD) Non-Af 33 L, BUN/Creatinine Ratio 28.5 H, Glucose 120 H, Calcium 9.4 01/02/24 05:40: POC Glucose 118 H Micro: Microbiology 12/31/23 17:32 Urine, Clean Catch Legionella Antigen - Final 12/31/23 17:32 Urine, Clean Catch Streptococcus pneumoniae Antigen (M - Final 12/31/23 11:46 Mucosa - Nose SARS-CoV-2, Influenza & RSV (PCR) - Final Radiography Diagnostic Testing: Radiology Impression Echocardiogram 12/31/23 19:46 Interpretation Summary Mildly dilated left ventricle. Severe generalized LV systolic dysfunction. Estimated EF 20 to 25%. Stage I diastolic dysfunction. Moderately severe global right ventricular systolic dysfunction. The study was technically difficult. Ordering Physician: Yehuda Donato Referring Physician: MD Connie Mich Performed By: Olga Lambert RDCS and Student Rhythm Strip Rhythm Strip: Sinus Rhythm Rate: 80 Physical Exam Const alert, oriented x3 and no apparent distress Constitutional Narrative: frail General Appearance: cooperative and well developed HEENT normocephalic, head/scalp atraumatic, moist oral mucous membranes and oropharynx normal Eyes PERRL, EOMs intact bilaterally and conjunctivae normal Neck no lymphadenopathy and supple Resp Resp Narrative: Moderately diminished breath sounds bibasilarly. Bilateral crackles. On 6L of oxygen by nasal canula Cardio regular rate, regular rhythm, S1 normal heart sound, S2 normal heart sound and no murmurs GI normal to inspection, nondistended, normoactive bowel sounds, soft to palpation, non-tender and non-distended Extremity normal to inspection, full ROM and no clubbing, cyanosis or edema General Extremity: no tenderness to palpation of joints or extremities Skin General Skin Exam: no breakdown Neuro oriented x3, CN's II-XII intact bilaterally, moves all extremities and no focal motor deficits Sensorium / Orientation: awake Motor Exam: strength 5/5 throughout Psych Psych Narrative: flat affect Assessment & Plan Assessment/Plan (1) Acute respiratory failure with hypoxia and hypercarbia: PLAN: Plan Acute on chronic hypoxic and hypercapnic respiratory failure due to probable pneumonia * Patient was recently discharged home a few weeks ago after being managed for pneumonia. He was discharged on 4 L of oxygen. * He went to minute continuously felt short of breath so he came into the ED. He was requiring up to 15 L of oxygen and is now on Airvo. * CXR showed ill defined opacity within hte left mid and lowerr lung which may reflect some combination of atelectasis, pneumonia and/or neoplastic process with a possible effusion. * COVID, influenza and RSV are negative * Was on BiPAP but subsequently transition to Airvo; now down to 6L of oxygen. On IV Zosyn. * Urine for strep and Legionella negative. * Critical care on board. * CTA of the chest showed no PE or arterial dissection and showed prominent interstitial lung markings which may suggest an infiltrate or pneumonia part in the lymphangitic carcinoma should be considered as well as a left lower lobe infiltrate and middle lobe infiltrate on the left side. He also had diffuse mediastinal adenopathy. * Titrate oxygen to maintain saturation above 90%. * Speech therapy on board * Urine for strep and Legionella negative. * * #History of esophageal stenosis: * Had EGD on 12/15/2023 which showed benign-appearing esophageal stenosis which was dilated and grade a reflux esophagitis as well as a medium size hiatal hernia and chronic gastritis. * Continue PPI #History of CAD. Was admitted with non-STEMI recently. On aspirin and high intensity statin. 2D echo showed EF of 20 to 25% and severe global hypokinesis. #Type 2 diabetes mellitus:hold long acting insulin for now. ISS. Accuchecks q6hrly as he is NPO #Hyperlipidemia: On statin #Depression: On sertraline #CKD stage IV: * Used to be on dialysis but this was discontinued in April 2023. * Creatinine today has trended up to 2.07 today. May be due to diuresis patient is receiving. * Will hold lasix today in light of upwards trend in Cr. DVT prophylaxis: heparin Code status: full code * Charges/Coding Visit Charges Inpatient E&M: 55867 Subs Hosp L2
--- NOTE | 2024-01-02 09:56 | PCM.PN.CARD ---
Subjective Subjective Patient sitting up at the bedside in the chair on nasal cannula oxygen. He is carrying on a normal conversation and ordering his lunch. I did discuss the situation with his nursing staff. His echocardiogram shows an ejection fraction of 20 to 25% with four-chamber dilatation which is really unchanged from his old echo. Objective Data Vital Signs: Vital Signs Temp Pulse Resp BP Pulse Ox O2 Del Method O2 Flow Rate 96.0 F L 90 20 H 127/65 H 100 Nasal Cannula 6 01/02/24 08:00 01/02/24 08:00 01/02/24 08:00 01/02/24 08:00 01/02/24 08:00 01/02/24 08:00 01/02/24 08:00 FiO2 45 01/02/24 06:00 Oxygen Flow Rate (L/min) 6 Oxygen Delivery Method Nasal Cannula Weight: 149 lb 0.52 oz Body Mass Index (BMI) 24.8 Intake & Output: Intake and Output for Last 24 Hours 12/31/23 01/01/24 01/02/24 23:59 23:59 23:59 Intake Total 555 / 555 570 / 570 475 / 475 Output Total 900 / 900 2375 / 2475 600 / 600 Balance -345 / -345 -1805 / -1905 -125 / -125 Lab / Micro Data 01/02/24 02:16 01/02/24 02:16 Labs: Laboratory Results - last 24 hr 01/01/24 11:47: POC Glucose 98 01/01/24 17:18: POC Glucose 137 H 01/02/24 00:13: POC Glucose 131 H 01/02/24 02:16: WBC 8.8, RBC 4.79, Hgb 13.8, Hct 44.8, MCV 93.5, MCH 28.8, MCHC 30.8 L, RDW Std Deviation 52.7 H, RDW Coeff of Audi 15.2 H, Plt Count 147 L, MPV 11.2, Immature Gran % (Auto) 0.200, Neut % (Auto) 75.4 H, Lymph % (Auto) 13.7 L, [place] % (Auto) 9.5, Eos % (Auto) 0.7, Baso % (Auto) 0.5, Absolute Neuts (auto) 6.7, Absolute Lymphs (auto) 1.21, Nucleated RBC % 0, Sodium 140, Potassium 5.5 H, Chloride 100, Carbon Dioxide 33.0 H, Anion Gap 7, BUN 59 H, Creatinine 2.07 H, Estim Creat Clear Calc 25.42, Est GFR (MDRD) Af Amer 40 L, Est GFR (MDRD) Non-Af 33 L, BUN/Creatinine Ratio 28.5 H, Glucose 120 H, Calcium 9.4 01/02/24 05:40: POC Glucose 118 H Rhythm Strip Rhythm Strip: Sinus Rhythm Rate: 80 Cardiology Labs/Tests 01/02/24 02:16: WBC 8.8, RBC 4.79, Hgb 13.8, Hct 44.8, MCV 93.5, MCH 28.8, MCHC 30.8 L, Plt Count 147 L, MPV 11.2, Immature Gran % (Auto) 0.200, Neut % (Auto) 75.4 H, Lymph % (Auto) 13.7 L, [place] % (Auto) 9.5, Eos % (Auto) 0.7, Baso % (Auto) 0.5, Absolute Neuts (auto) 6.7, Nucleated RBC % 0, Sodium 140, Potassium 5.5 H, Chloride 100, Carbon Dioxide 33.0 H, Anion Gap 7, BUN 59 H, Creatinine 2.07 H, Est GFR (MDRD) Af Amer 40 L, Est GFR (MDRD) Non-Af 33 L, BUN/Creatinine Ratio 28.5 H, Glucose 120 H, Calcium 9.4 Rhythm: EKG: ECHO: Stress Test: Cardiac Cath: PCI: CT Surgery: Holter monitor: EPS: PPM: CXR: Chest CT Scan: Radiography Diagnostic Testing: Radiology Impression Echocardiogram 12/31/23 19:46 Interpretation Summary Mildly dilated left ventricle. Severe generalized LV systolic dysfunction. Estimated EF 20 to 25%. Stage I diastolic dysfunction. Moderately severe global right ventricular systolic dysfunction. The study was technically difficult. Ordering Physician: Yehuda Donato Referring Physician: MD Mich Rosales Performed By: Olga Lambert RDCS and Student Physical Exam Const alert HEENT normocephalic Neck no JVD Resp normal respiratory effort Cardio regular rate and regular rhythm Assessment & Plan Assessment/Plan (1) Heart failure with reduced ejection fraction: PLAN: The patient's LV function appears to be similar to what it was in the past. His BNP is only 109 suggesting he is not volume overloaded. There is no clinical signs or symptoms of volume overload. (2) Acute respiratory failure with hypoxia and hypercarbia: PLAN: The patient CT is suggestive of a postobstructive pneumonia and there was multiple mentions of potential neoplastic disease. Further treatment evaluation be deferred to the primary service. PLAN: Plan Cardiology will sign off at this point in time if further assistance is needed please feel free to call. I would recommend reinstituting the patient's home medical therapy once appropriate to do so from his respiratory status. Charges/Coding Visit Charges Inpatient E&M: 88319 Subs Hosp L2
[2024-01-02] MEDS: oxyCODONE 5 MG Tablet PO ×2 (10:59→20:57)
--- NOTE | 2024-01-02 11:33 | PN.CC_ITS ---
Assessment & Plan Assessment/Plan (1) Acute respiratory failure with hypoxia and hypercarbia: PLAN: Plan RECOMMENDATIONS: 1. Continue BiPAP therapy with naps and nightly. 2. Supplemental oxygen to maintain saturations at or above 90%. 3. Continue empiric antimicrobials. 4. Continue scheduled bronchodilators and steroids. 5. Stop Lasix given rising creatinine. 6. Continue appropriate DVT prophylaxis. 7. Consider GI consultation given speech therapy concerns for recurrent aspiration and history of esophageal stenosis. 8. Encourage incentive spirometer use and mobilize patient as tolerated. IMPRESSIONS: 1. Acute respiratory failure with hypoxemia and hypercapnia The patient was recently hospitalized under similar circumstances, with clinical concern for underlying decompensated heart failure and possible COPD in a state of exacerbation. While the patient does have an extensive tobacco abuse history, he is not currently followed by a cooler tender. His chest imaging did certainly raise concern for underlying infection coupled with mediastinal adenopathy of unclear etiology. The adenopathy noted on his chest imaging may be reactive in nature secondary to underlying infection. However, this will need to be followed up on an outpatient pulmonary basis, with repeat chest imaging in 6 to 8 weeks. In the interim, it is certainly reasonable to continue empiric antibiotics and diuresis, as tolerated by hemodynamics and renal function. In addition, the patient will be continued on scheduled bronchodilators and steroids. Ultimately, the patient has a known history of esophageal stenosis status post dilation, but continues to have difficulty with p.o. intake, with concerns raised by speech therapy for recurrent aspiration. Therefore, it would be reasonable to have GI reevaluate the patient for any further recommendations. 2. History of tobacco dependency/coronary artery disease/chronic kidney disease/diabetes mellitus/history of esophageal stenosis Complicates care, management, recovery and prognosis. Continue current supportive care as noted above. This note was generated with [employer] dictation software. It may contain incorrect words, spelling, and punctuation that were not noted in checking the note before signing. Subjective Subjective The patient was seen and examined at the bedside this morning. Events from the last 24 hours have been reviewed. The patient is currently afebrile, hemodynamically stable and maintaining appropriate oxygen saturations on 5 L/min via nasal cannula. The patient completed his swallow evaluation and is currently on a modified diet, but there is still reported concerns for recurrent aspiration. Creatinine has increased to 2.07. Objective Data Objective Data The patient's most recent lab work, culture data and imaging studies have all been personally reviewed. Surface echocardiogram demonstrated a mildly dilated LV with an ejection fraction of 20 to 25% and severe global hypokinesis. COVID, influenza and RSV PCR's were negative. Blood, urine and sputum cultures are pending. Vital Signs: Vital Signs Temp Pulse Resp BP Pulse Ox O2 Del Method O2 Flow Rate 96.0 F L 89 24 H 95/49 L 91 Nasal Cannula 5 01/02/24 08:00 01/02/24 10:36 01/02/24 10:36 01/02/24 10:36 01/02/24 10:36 01/02/24 10:36 01/02/24 10:36 FiO2 45 01/02/24 06:00 Oxygen Flow Rate (L/min) 5 Oxygen Delivery Method Nasal Cannula Weight: 149 lb 0.52 oz Body Mass Index (BMI) 24.8 Intake & Output: Intake and Output for Last 24 Hours 12/31/23 01/01/24 01/02/24 23:59 23:59 23:59 Intake Total 555 / 555 570 / 570 595 / 595 Output Total 900 / 900 2375 / 2475 1000 / 1000 Balance -345 / -345 -1805 / -1905 -405 / -405 Lab / Micro Data Attestation: I reviewed the patient's lab results. 01/02/24 02:16 01/02/24 02:16 Labs: Laboratory Results - last 24 hr 01/01/24 11:47: POC Glucose 98 01/01/24 17:18: POC Glucose 137 H 01/02/24 00:13: POC Glucose 131 H 01/02/24 02:16: WBC 8.8, RBC 4.79, Hgb 13.8, Hct 44.8, MCV 93.5, MCH 28.8, MCHC 30.8 L, RDW Std Deviation 52.7 H, RDW Coeff of Audi 15.2 H, Plt Count 147 L, MPV 11.2, Immature Gran % (Auto) 0.200, Neut % (Auto) 75.4 H, Lymph % (Auto) 13.7 L, [place] % (Auto) 9.5, Eos % (Auto) 0.7, Baso % (Auto) 0.5, Absolute Neuts (auto) 6.7, Absolute Lymphs (auto) 1.21, Nucleated RBC % 0, Sodium 140, Potassium 5.5 H , Chloride 100, Carbon Dioxide 33.0 H, Anion Gap 7, BUN 59 H, Creatinine 2.07 H, Estim Creat Clear Calc 25.42, Est GFR (MDRD) Af Amer 40 L, Est GFR (MDRD) Non-Af 33 L, BUN/Creatinine Ratio 28.5 H, Glucose 120 H, Calcium 9.4 01/02/24 05:40: POC Glucose 118 H Micro: Microbiology 12/31/23 17:32 Urine, Clean Catch Legionella Antigen - Final 12/31/23 17:32 Urine, Clean Catch Streptococcus pneumoniae Antigen (M - Final 12/31/23 11:46 Mucosa - Nose SARS-CoV-2, Influenza & RSV (PCR) - Final ABG Data ABG results: ABG 12/31/23 12/31/23 01/01/24 12:01 13:37 04:18 Specimen Type ART ART ART Sample Site R Radial R Brach R Brach pH 7.27 L 7.31 L 7.32 L Bicarbonate Actual 33.5 H 31.9 H 35.7 H Total CO2 36 34 38 Base Excess 7 H 6 H 10 H O2 Saturation 94 L 91 L 95 O2 % 12.0 60.0 45.0 ABG pCO2 72.9 H* 63.1 H 69.8 H* ABG pO2 85 68 L 87 Meliton Test Positive Positive Positive Respiration Rate 12 O2 Delivery Device HFNC airvo BiPAP Vent Mode Not entered Not entered Not entered Tidal Volume 450.0 Crit Call To/Read Back Yes Yes Blood Gas Notified Whom dioni rosario Blood Gas Notified Time 12:03:07 04:20:32 Clinical Comments 60l 60% Radiography Diagnostic Testing: Radiology Impression Chest X-Ray 12/31/23 12:25 IMPRESSION: Ill-defined opacity within the left mid and lower lung may reflect some combination of atelectasis, pneumonia and/or a neoplastic process with a possible effusion. Electronically Signed: Dayna Han MD at 12:54 EDT , Chest CTA 12/31/23 13:21 IMPRESSION: 1. No demonstrated pulmonary embolism or arterial dissection. 2. Prominent interstitial lung markings may suggest an infiltrate/pneumonia pattern. However, lymphangitic carcinoma should be considered. 3. Left lower lobe and left midlung infiltrate. This can be related to pneumonia. However it is worse an underlying new plastic processes of concern. 4. Diffuse mediastinal adenopathy. This is worse. Consider neoplastic process. 5. Small left pleural effusion. Electronically Signed: Jack Rolle MD at 14:27 EDT , Rhythm Strip Rhythm Strip: Sinus Rhythm Rate: 80 Physical Exam Const alert and no apparent distress Constitutional Narrative: Sitting in bedside recliner. General Appearance: cooperative HEENT normocephalic and head/scalp atraumatic Eyes EOMs intact bilaterally and conjunctivae normal Neck supple General: trachea midline Chest inspection of chest normal Resp Effort and Inspection: tachypneic Auscultation: diminished lung sounds; Negative for rales, rhonchi or wheezes Cardio regular rate and regular rhythm GI normal to inspection, nondistended, normoactive bowel sounds Extremity General Extremity: edema bilateral lower extremity Skin no rashes or lesions noted Neuro CN's II-XII intact bilaterally, moves all extremities and no focal motor deficits Psych Mood & Affect: flat affect Charges/Coding Visit Charges Inpatient E&M: 25743 Subs Hosp L2
[2024-01-02] MEDS: Ipratropium/Albuterol Sulfate 3 ML AMPUL.NEB INHALATION ×3 (12:05→19:45)
[2024-01-02 12:30] LABS: Bedside Glucose 161 mg/dL (74-106)
[2024-01-02 12:50] LABS: Anion Gap 8 (5-15); BUN 59 mg/dL (7-18); BUN/Creat Ratio 30.6 RATIO (10-20); Calcium,Total 9.9 mg/dL (8.5-10.1); Chloride 100 mmol/L (98-107); Creatinine, Serum 1.93 mg/dL (0.70-1.30); EST Glomerular Filtration Rate 36 mL/min (>60); Est Glom Filt Rate - Afr Amer 44 mL/min (>60); Estimated Creatinine Clearance 27.27 ml/min; Glucose 163 mg/dL (74-106); Potassium 4.2 mmol/L (3.5-5.1); Sodium Level 142 mmol/L (136-145)
[2024-01-02 15:16] LABS: Bedside Glucose 171 mg/dL (74-106)
[2024-01-02] MEDS: Insulin Lispro 100 UNIT/ML INSULN.PEN SC ×2 (15:22→20:56)
--- NOTE | 2024-01-02 16:26 | CASEMGMT ---
Addendum entered by Margy Minaya 01/02/24 16:40: JESSIKA called registration to verify insurance coverage for hospital stay. Precert was obtained through [place]. MYCHAL Monreal Original Note: Social Work- SW met with pt to discuss preference at d/c. Pt states that he feels weak and that he is willing to go to a SNF for additional rehab. SW advised DCA. SW completed SDOH; triggered in error, pt reports no needs. MYCHAL Monreal
[2024-01-02 20:20] LABS: Vancomycin, Trough Level 15.6 ug/mL (5.0-15.0)
--- NOTE | 2024-01-02 20:28 | PCM.RX.CS ---
Consult Antibiotic Management Pharmacy has been consulted to manage selected antibiotic: Vancomycin Type of Intervention Type of Consult: Follow-up Prior Doses of Antibiotics Prior Doses of Antibiotics Received/Current Regimen: current dose is 1000mg IV q24h Labs Labs: Sodium 142 mmol/L (136-145) 01/02/24 12:10 Potassium 4.2 mmol/L (3.5-5.1) 01/02/24 12:10 Chloride 100 mmol/L (98-107) 01/02/24 12:10 Carbon Dioxide 34.0 mmol/L (21.0-32.0) H 01/02/24 12:10 Anion Gap 8 (5-15) 01/02/24 12:10 BUN 59 mg/dL (7-18) H 01/02/24 12:10 Creatinine 1.93 mg/dL (0.70-1.30) H 01/02/24 12:10 Est GFR (MDRD) Af Amer 44 mL/min (>60) L 01/02/24 12:10 Est GFR (MDRD) Non-Af 36 mL/min (>60) L 01/02/24 12:10 BUN/Creatinine Ratio 30.6 RATIO (10-20) H 01/02/24 12:10 Glucose 163 mg/dL (74-106) H 01/02/24 12:10 Vancomycin Trough 15.6 ug/mL (5.0-15.0) H 01/02/24 19:58 Microbiology Microbiology: Microbiology 12/31/23 13:39 Blood Culture (Wb) - Left Forearm Blood Culture - Preliminary No growth in 48 hours. 01/01/24 21:50 Sputum, Expectorated/Coughed Gram Stain - Final 12/31/23 17:32 Urine, Clean Catch Legionella Antigen - Final 12/31/23 17:32 Urine, Clean Catch Streptococcus pneumoniae Antigen (M - Final 12/31/23 11:46 Mucosa - Nose SARS-CoV-2, Influenza & RSV (PCR) - Final Dosing Weight Weight used for dosin.6 kg Estimated Creatinine Clearance Estimated Creatinine Clearance: 27.3ml/min Goal Trough Goal Trough: 15-20 mcg/mL Pharmacy Plan for Drug Dosing Pharmacy Plan for Drug Dosing: The vanc trough drawn at 19:58 tonight was 15.6 (drawn approx 23.5 hours after the previous dose). This is in goal range so will keep same dose. Repeat a trough in 2 days. Will need to continue to monitor the patient's renal function (SCr was up to 2.07 this morning but it did go down slightly to 1.93 later today). Pharmacy Service will continue to monitor and adjust dosing as required. Follow-Up Labs Follow-Up Labs: Trough: Vancomycin Date/Time Labs Ordered Labs to be done on [date and time ordered]: 01/04/24 20:00
[2024-01-02] MEDS: Vancomycin IV 1,000 MG/200 ML BAG 200 MG IV (20:54)
[2024-01-02] MEDS: Acetaminophen 325 MG Tablet 650 MG PO (20:57)
[2024-01-02 21:18] LABS: Bedside Glucose 222 mg/dL (74-106)
--- NOTE | 2024-01-02 21:52 | EX.PCM.CON.G ---
HPI Consult Data Date of Consult: 01/02/24 HPI Narrative Reason for Consultation: Recurrent aspiration ammonia HPI Narrative: JONAH ALEXANDRA, is a 78 M who presented with shortness of breath he has had over the last 2 days that has increasingly been getting worse. He has been wheezing at home and has had a productive cough with purulent sputum over the last week. He reports that he was recently discharged here on 12/15/2023 due to acute hypoxic and hypercapnic respiratory failure due to acute heart failure with reduced EF and pneumonia. He was discharged home on 4 L O2. Patient has history of coronary artery disease status post CABG, possible left main stent after that, CKD with acute on chronic renal failure last admission requiring dialysis for a brief period, history of CHF, hypertension. He has not been following with a fiscal services director for some time. 2D echo done on this admission revealed an EF of 20 to 25%. In 2018 coronary angiography revealed patent COLIN to LAD. He had severe left main stenosis for which he was sent to [facility] for PCI. He was also diagnosed with COPD exacerbation and hypoxic respiratory failure. He has been seen by infrastructure engineer service and is on medical therapy. I was asked to see him because he underwent swallowing study and it showed poor clearance in his esophagus. He says that he has a history of esophageal dysphagia. He does have liquid and solid food dysphagia. He also admits to dysphagia and occasional painful swallowing with pills. [facility] Medical History Dysphagia CHF exacerbation Hearing loss, left Hearing loss, right Anxiety Diabetes Chronic pain Kidney stones Kidney disease Former smoker Sleep apnea COPD (chronic obstructive pulmonary disease) Chest pain Myocardial infarct Hypertension DVT (deep venous thrombosis) Unable to walk Acute kidney injury Home Medications ?Medication ?Instructions ?Recorded ?Last Taken ?Type gabapentin 400 mg capsule 400 mg PO TID NERVE PAIN 08/20/18 12/05/23 History glipizide 5 mg tablet 5 mg PO .BEFORE MEALS DM 08/20/18 12/05/23 History sertraline 50 mg tablet 100 mg PO DAILY DEPRESSION 08/20/18 12/05/23 History carvedilol 3.125 mg tablet 3.125 mg PO BID blood pressure 08/21/18 12/05/23 Rx clopidogrel 75 mg tablet 75 mg PO DAILY anti platelet 08/21/18 12/05/23 Rx albuterol 90 mcg/actuation aerosol 90 mcg inhalation .4X A DAY PRN SOB 12/30/22 Unknown History inhaler amlodipine 10 mg tablet 10 mg PO DAILY blood pressure 12/30/22 Unknown History cholecalciferol (vitamin D3) 25 75 mcg PO DAILY vitamin 12/30/22 12/05/23 History mcg (1,000 unit) capsule cyanocobalamin (vitamin B-12) 1,000 mcg PO DAILY vitamin 12/30/22 12/05/23 History 1,000 mcg capsule hydrocodone-acetaminophen 5-325mg 1 tab PO TID pain 12/30/22 12/05/23 History 5mg-325mg mometasone 200 mcg/actuation HFA 2 puff inhalation BID breathing 12/30/22 12/05/23 History aerosol inhaler (Asmanex HFA) rosuvastatin 40 mg tablet (Crestor) 40 mg PO QHS cholesterol 12/30/22 12/04/23 History tiotropium 2.5 mcg-olodaterol 2.5 2 inh inhalation DAILY breathing 12/30/22 12/05/23 History mcg/actuation mist for inhalation (Stiolto Respimat) aspirin 81 mg tablet,delayed 81 mg PO DAILY heart meera 12/05/23 12/05/23 History release (Adult Aspirin Regimen) furosemide 40 mg tablet 40 mg PO DAILY diuretic 12/05/23 12/05/23 History amoxicillin 500 mg-potassium 1 tab PO BID 5 days #10 tabs 12/15/23 Unknown Rx clavulanate 125 mg tablet (Augmentin) furosemide 20 mg tablet 20 mg PO .evening 1 month #30 tabs 12/15/23 Unknown Rx insulin glargine 100 unit/mL 18 unit (0.18 mL) subcut QHS 30 12/15/23 12/04/23 Rx subcutaneous solution days #0 mL insulin lispro 100 unit/mL 5 unit (0.05 mL) subcut TIDAC 1 12/15/23 Unknown Rx subcutaneous pen (Humalog KwikPen month #15 mL (U-100) Insulin) insulin lispro 100 unit/mL See Protocol subcut ACHS #0 mL 12/15/23 Unknown Rx subcutaneous pen (Humalog KwikPen (U-100) Insulin) pantoprazole 40 mg tablet,delayed 40 mg PO BID 30 days #60 tabs 12/15/23 Unknown Rx release (Protonix) prednisone 20 mg tablet 40 mg (2 x 20 mg) PO BREAKFAST 5 12/15/23 Unknown Rx days #10 tabs sucralfate 1 gram tablet (Carafate) 1 g PO TID #90 tabs 12/22/23 Unknown Rx Allergy/AdvReac Type Severity Reaction Status Date / Time No Known Allergies Allergy Verified 12/31/23 11:35 Surgical History Hx of CABG History of coronary artery stent placement Social History household members: spouse Smoking Status: Former smoker ROS Review of Systems ROS Unobtainable: Denies due to encephalopathy Constitutional Constitutional: Reports chills, fatigue, malaise and weakness; Denies anorexia or fever(s) Eyes Eyes: Denies change in vision Cardiovascular Cardiovascular: Reports dyspnea on exertion and orthopnea; Denies chest pain, edema, lightheadedness, palpitations, paroxysmal nocturnal dyspnea, rapid heart rate or syncope Respiratory/Chest Respiratory/Chest: Reports cough, dyspnea, productive cough, shortness of breath at rest and shortness of breath with exertion; Denies wheezing Gastrointestinal Gastrointestinal: Denies abdominal pain, constipation, diarrhea, dyspepsia, nausea or vomiting Genitourinary Genitourinary: Denies burning urination or dysuria Neurologic Neurologic: Denies confusion, dizziness, focal weakness, headache(s), numbness, seizures or syncope Psychiatric Psychiatric: Denies anxiety or depression Physical Exam Const alert and no apparent distress Constitutional Narrative: Sitting in bedside recliner. General Appearance: cooperative HEENT normocephalic and head/scalp atraumatic Eyes EOMs intact bilaterally and conjunctivae normal Neck supple General: trachea midline Chest inspection of chest normal Resp Effort and Inspection: tachypneic Auscultation: diminished lung sounds; Negative for rales, rhonchi or wheezes Cardio regular rate and regular rhythm GI normal to inspection, nondistended, normoactive bowel sounds Extremity General Extremity: edema bilateral lower extremity Skin no rashes or lesions noted Neuro CN's II-XII intact bilaterally, moves all extremities and no focal motor deficits Psych Mood & Affect: flat affect Lab / Micro Data 01/02/24 02:16 01/02/24 12:10 Labs: Laboratory Results - last 24 hr 01/02/24 00:13: POC Glucose 131 H 01/02/24 02:16: WBC 8.8, RBC 4.79, Hgb 13.8, Hct 44.8, MCV 93.5, MCH 28.8, MCHC 30.8 L, RDW Std Deviation 52.7 H, RDW Coeff of Audi 15.2 H, Plt Count 147 L, MPV 11.2, Immature Gran % (Auto) 0.200, Neut % (Auto) 75.4 H, Lymph % (Auto) 13.7 L, [place] % (Auto) 9.5, Eos % (Auto) 0.7, Baso % (Auto) 0.5, Absolute Neuts (auto) 6.7, Absolute Lymphs (auto) 1.21, Nucleated RBC % 0, Sodium 140, Potassium 5.5 H, Chloride 100, Carbon Dioxide 33.0 H, Anion Gap 7, BUN 59 H, Creatinine 2.07 H, Estim Creat Clear Calc 25.42, Est GFR (MDRD) Af Amer 40 L, Est GFR (MDRD) Non-Af 33 L, BUN/Creatinine Ratio 28.5 H, Glucose 120 H, Calcium 9.4 01/02/24 05:40: POC Glucose 118 H 01/02/24 12:10: Sodium 142, Potassium 4.2, Chloride 100, Carbon Dioxide 34.0 H, Anion Gap 8, BUN 59 H, Creatinine 1.93 H, Estim Creat Clear Calc 27.27, Est GFR (MDRD) Af Amer 44 L, Est GFR (MDRD) Non-Af 36 L, BUN/Creatinine Ratio 30.6 H, Glucose 163 H, Calcium 9.9 01/02/24 12:11: POC Glucose 161 H 01/02/24 14:59: POC Glucose 171 H 01/02/24 19:58: Vancomycin Trough 15.6 H 01/02/24 20:53: POC Glucose 222 H Micro: Microbiology 12/31/23 13:39 Blood Culture (Wb) - Left Forearm Blood Culture - Preliminary No growth in 48 hours. 01/01/24 21:50 Sputum, Expectorated/Coughed Gram Stain - Final Rhythm Strip Rhythm Strip: Sinus Rhythm Rate: 80 Assessment & Plan Assessment/Plan (1) Dysphagia: PLAN: Differential diagnosis for him does include esophageal dysphagia secondary to Amy esophagitis, esophageal stricture, esophageal ring, erosive esophagitis from coughing. Results from swallow study today: Esophageal screen - Retention throughout the esophagus. Thin Liquid via small single sip: cup Chin tuck: Esophageal screen - Retention in mid esophagus with retrograde flow to upper esophagus. Also interval diagnosis includes diabetic gastroparesis with bile induced reflux disease. He should undergo upper endoscopy with possible dilation and biopsies of the esophagus. He was explained alternatives, risk, benefits including outstanding bleeding, infection, sepsis, perforation, need for emergent surgery and . Have an ASA of 3. Charges/Coding Visit Charges Inpatient E&M: 57871 Init Hosp L3
[2024-01-03] VITALS (16 sets, daily range): BP systolic 85–118; BP diastolic 46–65; PULSE 72–92; RESP 12–26; TEMP 36.4–36.9; O2SAT 91–100; BMI 24.3
[2024-01-03] MEDS: Ipratropium/Albuterol Sulfate 3 ML AMPUL.NEB INHALATION ×4 (01:50→23:07)
[2024-01-03] MEDS: Heparin Injection (Vial) 5,000 UNIT/ML VIAL 5000 UNIT SC ×3 (05:48→20:38)
[2024-01-03] MEDS: Piperacil/Tazobactam 3.375 GM in 0.9% Normal Saline (50mL MB+) 50 ML IV ×3 (05:48→22:38)
[2024-01-03 06:20] LABS: Absolute Lymphocyte Count 1.46 X10^3/uL (0.83-4.51); Absolute Neutrophil Count 5.4 X10^3/uL (2.0-7.7); Basophil# 0.04 X10^3/uL; Basophil% 0.5 % (0-1); Eosinophil# 0.23 X10^3/uL; Eosinophils% 2.9 % (0-5); Hematocrit 41.5 % (40-54); Hemoglobin 12.7 g/dL (13.0-16.5); Lymphocyte # 1.46 X10^3/ul (0.83-4.51); Lymphocyte % 18.3 % (19-41); Mean Corp Hgb Conc 30.6 g/dL (32-36); Mean Corpuscular Hgb 28.7 pg (27.0-32.0); Mean Corpuscular Volume 93.9 fL (80-94); Mean Platelet Vol. 10.8 fl (6.2-12.0); Monocyte# 0.78 X10^3/uL; Monocyte% 9.8 % (0-10); NRBC Flagged by Analyzer 0 % (0-5); Neutrophil # 5.43 X10^3/uL (2.7-7.7); Platelet Count 146 K/mm3 (150-450); RBC Distribution Width CV 14.9 % (11.6-14.6); RBC Distribution Width SD 51.2 fl (35.1-43.9); Red Blood Count 4.42 M/mm3 (4.6-6.2)
[2024-01-03 06:32] LABS: Partial Thromboplast Time 29.8 Seconds (24.1-36.2)
[2024-01-03 07:02] LABS: Anion Gap 9 (5-15); BUN 63 mg/dL (7-18); BUN/Creat Ratio 31.7 RATIO (10-20); Calcium,Total 9.5 mg/dL (8.5-10.1); Chloride 101 mmol/L (98-107); Creatinine, Serum 1.99 mg/dL (0.70-1.30); EST Glomerular Filtration Rate 35 mL/min (>60); Est Glom Filt Rate - Afr Amer 42 mL/min (>60); Estimated Creatinine Clearance 26.44 ml/min; Glucose 109 mg/dL (74-106); Potassium 3.8 mmol/L (3.5-5.1); Sodium Level 140 mmol/L (136-145)
[2024-01-03 08:06] LABS: Bedside Glucose 96 mg/dL (74-106)
--- NOTE | 2024-01-03 09:03 | PCM.PN.HOSP ---
Reason for Visit Reason for Visit: Diagnoses Essential (primary) hypertension (12/31/23) Atherosclerotic heart disease of [place] coronary artery without angina pectoris (12/31/23) Unspecified systolic (congestive) heart failure (12/31/23) Acute respiratory failure with hypoxia (12/31/23) Acute respiratory failure with hypercapnia (12/31/23) Chronic kidney disease, unspecified (12/31/23) Dysphagia, unspecified (12/31/23) Subjective Subjective Breathing better. Oxygen able to be weaned down. Objective Data Objective Data Vital Signs: Vital Signs Temp Pulse Resp BP Pulse Ox O2 Del Method O2 Flow Rate 36.4 C L 82 20 H 109/55 L 94 Bi-pap 5 01/03/24 02:20 01/03/24 06:38 01/03/24 06:38 01/03/24 02:20 01/03/24 06:38 01/03/24 06:38 01/02/24 20:20 FiO2 40 01/03/24 06:38 Oxygen Flow Rate (L/min) 5 Oxygen Delivery Method Bi-pap Weight: 66.4 kg Body Mass Index (BMI) 24.3 Intake & Output: Intake and Output for Last 24 Hours 01/01/24 01/02/24 01/03/24 23:59 23:59 23:59 Intake Total 570 / 570 1049.5 / 1049.5 50 / 50 Output Total 2375 / 2475 1500 / 1500 200 / 200 Balance -1805 / -1905 -450.5 / -450.5 -150 / -150 Lab / Micro Data 01/03/24 05:36 01/03/24 05:36 Labs: Laboratory Results - last 24 hr 01/02/24 12:10: Sodium 142, Potassium 4.2, Chloride 100, Carbon Dioxide 34.0 H, Anion Gap 8, BUN 59 H, Creatinine 1.93 H, Estim Creat Clear Calc 27.27, Est GFR (MDRD) Af Amer 44 L, Est GFR (MDRD) Non-Af 36 L, BUN/Creatinine Ratio 30.6 H, Glucose 163 H, Calcium 9.9 01/02/24 12:11: POC Glucose 161 H 01/02/24 14:59: POC Glucose 171 H 01/02/24 19:58: Vancomycin Trough 15.6 H 01/02/24 20:53: POC Glucose 222 H 01/03/24 05:36: WBC 8.0, RBC 4.42 L, Hgb 12.7 L, Hct 41.5, MCV 93.9, MCH 28.7, MCHC 30.6 L, RDW Std Deviation 51.2 H, RDW Coeff of Audi 14.9 H, Plt Count 146 L, MPV 10.8, Immature Gran % (Auto) 0.500, Neut % (Auto) 68.0, Lymph % (Auto) 18.3 L, [place] % (Auto) 9.8, Eos % (Auto) 2.9, Baso % (Auto) 0.5, Absolute Neuts (auto) 5.4, Absolute Lymphs (auto) 1.46, Nucleated RBC % 0, APTT 29.8, Sodium 140, Potassium 3.8, Chloride 101, Carbon Dioxide 30.0, Anion Gap 9, BUN 63 H, Creatinine 1.99 H, Estim Creat Clear Calc 26.44, Est GFR (MDRD) Af Amer 42 L, Est GFR (MDRD) Non-Af 35 L, BUN/Creatinine Ratio 31.7 H, Glucose 109 H, Calcium 9.5 01/03/24 07:49: POC Glucose 96 Micro: Microbiology 12/31/23 13:39 Blood Culture (Wb) - Left Forearm Blood Culture - Preliminary No growth in 48 hours. 01/01/24 21:50 Sputum, Expectorated/Coughed Gram Stain - Final 12/31/23 17:32 Urine, Clean Catch Legionella Antigen - Final 12/31/23 17:32 Urine, Clean Catch Streptococcus pneumoniae Antigen (M - Final 12/31/23 11:46 Mucosa - Nose SARS-CoV-2, Influenza & RSV (PCR) - Final Rhythm Strip Rhythm Strip: Sinus Rhythm Rate: 80 Physical Exam Const alert and no apparent distress Constitutional Narrative: Up in chair. No respiratory distress. No conversational dyspnea. On nasal cannula 6 L/min. HEENT head/scalp atraumatic, moist oral mucous membranes, oropharynx normal, dentition normal and gingiva normal Neck no lymphadenopathy Resp normal respiratory effort and no retractions Resp Narrative: Diminished bilaterally. Cardio regular rate, regular rhythm, S1 normal heart sound and S2 normal heart sound GI normal to inspection, nondistended, normoactive bowel sounds, soft to palpation, non-tender and non-distended Extremity normal to inspection, full ROM and no clubbing, cyanosis or edema Neuro Sensorium / Orientation: awake and alert Assessment & Plan Assessment/Plan (1) Acute respiratory failure with hypoxia and hypercarbia: PLAN: Plan Acute hypoxic and hypercapnic respiratory failure Secondary to COPD exacerbation, pneumonia. BiPAP with naps and nightly. Patient not felt to be in CHF exacerbation by cardiology, who has since signed off. Aspiration pneumonia Continue with antibiotics with pip-tazo and vancomycin Patient had a speech therapy eval that showed thin liquids with retention and midesophagus with retrograde flow in the upper esophagus. GI on consult and plan is for the patient undergo an EGD. Patient had an EGD on December 14 that showed benign-appearing esophageal stenosis that was dilated. Grade a reflux esophagitis with no bleeding. Medium size hiatal hernia. Chronic gastritis that was biopsied. Gastric biopsy showed chronic gastritis. Esophageal biopsy showed mild inflammation at the GE junction Gastritis Resume PPI Acute COPD exacerbation Continue with bronchodilators and methylprednisolone. Chronic conditions CAD: Continue with aspirin and statin. Heart failure with reduced ejection fraction: EF of 5%. Seen by cardiology. Not felt to be in acute CHF exacerbation at this time. Diabetes mellitus type 2:Fair control at this time. Glargine held for now. Sliding scale insulin. VTE prophylaxis with heparin. Charges/Coding Visit Charges Inpatient E&M: 69392 Subs Hosp L2
--- NOTE | 2024-01-03 10:23 | PCM.PN.INT ---
Assessment & Plan Assessment/Plan (1) Acute respiratory failure with hypoxia and hypercarbia: PLAN: Plan RECOMMENDATIONS: 1. Continue BiPAP therapy with naps and nightly. 2. Supplemental oxygen to maintain saturations at or above 90%. 3. Continue empiric antimicrobials to complete 7 days of therapy. 4. Continue scheduled bronchodilators and steroids. 5. Continue appropriate DVT prophylaxis. 6. GI following with tentative plans for EGD, given concerns for aspiration. 7. Encourage incentive spirometer use and mobilize patient as tolerated. IMPRESSIONS: 1. Acute respiratory failure with hypoxemia and hypercapnia The patient was recently hospitalized under similar circumstances, with clinical concern for underlying decompensated heart failure and possible COPD in a state of exacerbation, most likely secondary to aspiration. While the patient does have an extensive tobacco abuse history, he is not currently followed by a child welfare manager. His chest imaging did certainly raise concern for underlying infection coupled with mediastinal adenopathy of unclear etiology. The adenopathy noted on his chest imaging may be reactive in nature secondary to underlying infection. However, this will need to be followed up on an outpatient pulmonary basis, with repeat chest imaging in 6 to 8 weeks. In the interim, it is certainly reasonable to continue empiric antibiotics. In addition, the patient will be continued on scheduled bronchodilators and steroids. Ultimately, the patient has a known history of esophageal stenosis status post dilation, but continues to have difficulty with p.o. intake, with concerns raised by speech therapy for recurrent aspiration. Therefore, GI was consulted with tentative plans for repeat upper endoscopy. 2. History of tobacco dependency/coronary artery disease/chronic kidney disease/diabetes mellitus/history of esophageal stenosis Complicates care, management, recovery and prognosis. Continue current supportive care as noted above. This note was generated with [employer] dictation software. It may contain incorrect words, spelling, and punctuation that were not noted in checking the note before signing. Subjective Subjective The patient was seen and examined at the bedside this morning. Events from the last 24 hours have been reviewed. The patient was seen by gastroenterology yesterday who recommended upper endoscopy. Morning labs are stable. Objective Data Objective Data The patient's most recent lab work, culture data and imaging studies have all been personally reviewed. Surface echocardiogram demonstrated a mildly dilated LV with an ejection fraction of 20 to 25% and severe global hypokinesis. COVID, influenza and RSV PCR's were negative. Blood, urine and sputum cultures are pending. Vital Signs: Vital Signs Temp Pulse Resp BP Pulse Ox O2 Del Method O2 Flow Rate 97.6 F L 82 20 H 109/55 L 94 Bi-pap 5 01/03/24 02:20 01/03/24 06:38 01/03/24 06:38 01/03/24 02:20 01/03/24 06:38 01/03/24 06:38 01/02/24 20:20 FiO2 40 01/03/24 06:38 Oxygen Flow Rate (L/min) 5 Oxygen Delivery Method Bi-pap Weight: 146 lb 6.191 oz Body Mass Index (BMI) 24.3 Intake & Output: Intake and Output for Last 24 Hours 01/01/24 01/02/24 01/03/24 23:59 23:59 23:59 Intake Total 570 / 570 1049.5 / 1049.5 50 / 50 Output Total 2375 / 2475 1500 / 1500 200 / 200 Balance -1805 / -1905 -450.5 / -450.5 -150 / -150 Lab / Micro Data Attestation: I reviewed the patient's lab results. 01/03/24 05:36 01/03/24 05:36 Labs: Laboratory Results - last 24 hr 01/02/24 12:10: Sodium 142, Potassium 4.2, Chloride 100, Carbon Dioxide 34.0 H, Anion Gap 8, BUN 59 H, Creatinine 1.93 H, Estim Creat Clear Calc 27.27, Est GFR (MDRD) Af Amer 44 L, Est GFR (MDRD) Non-Af 36 L, BUN/Creatinine Ratio 30.6 H, Glucose 163 H, Calcium 9.9 01/02/24 12:11: POC Glucose 161 H 01/02/24 14:59: POC Glucose 171 H 01/02/24 19:58: Vancomycin Trough 15.6 H 01/02/24 20:53: POC Glucose 222 H 01/03/24 05:36: WBC 8.0, RBC 4.42 L, Hgb 12.7 L, Hct 41.5, MCV 93.9, MCH 28.7, MCHC 30.6 L, RDW Std Deviation 51.2 H, RDW Coeff of Audi 14.9 H, Plt Count 146 L, MPV 10.8, Immature Gran % (Auto) 0.500, Neut % (Auto) 68.0, Lymph % (Auto) 18.3 L, [place] % (Auto) 9.8, Eos % (Auto) 2.9, Baso % (Auto) 0.5, Absolute Neuts (auto) 5.4, Absolute Lymphs (auto) 1.46, Nucleated RBC % 0, APTT 29.8, Sodium 140, Potassium 3.8, Chloride 101, Carbon Dioxide 30.0, Anion Gap 9, BUN 63 H, Creatinine 1.99 H, Estim Creat Clear Calc 26.44, Est GFR (MDRD) Af Amer 42 L, Est GFR (MDRD) Non-Af 35 L, BUN/Creatinine Ratio 31.7 H, Glucose 109 H, Calcium 9.5 01/03/24 07:49: POC Glucose 96 Micro: Microbiology 12/31/23 13:39 Blood Culture (Wb) - Left Forearm Blood Culture - Preliminary No growth in 48 hours. 01/01/24 21:50 Sputum, Expectorated/Coughed Gram Stain - Final 12/31/23 17:32 Urine, Clean Catch Legionella Antigen - Final 12/31/23 17:32 Urine, Clean Catch Streptococcus pneumoniae Antigen (M - Final 12/31/23 11:46 Mucosa - Nose SARS-CoV-2, Influenza & RSV (PCR) - Final ABG Data ABG results: ABG 12/31/23 12/31/23 01/01/24 12:01 13:37 04:18 Specimen Type ART ART ART Sample Site R Radial R Brach R Brach pH 7.27 L 7.31 L 7.32 L Bicarbonate Actual 33.5 H 31.9 H 35.7 H Total CO2 36 34 38 Base Excess 7 H 6 H 10 H O2 Saturation 94 L 91 L 95 O2 % 12.0 60.0 45.0 ABG pCO2 72.9 H* 63.1 H 69.8 H* ABG pO2 85 68 L 87 Meliton Test Positive Positive Positive Respiration Rate 12 O2 Delivery Device HFNC airvo BiPAP Vent Mode Not entered Not entered Not entered Tidal Volume 450.0 Crit Call To/Read Back Yes Yes Blood Gas Notified Whom dioni rosario Blood Gas Notified Time 12:03:07 04:20:32 Clinical Comments 60l 60% Radiography Diagnostic Testing: Radiology Impression Chest X-Ray 12/31/23 12:25 IMPRESSION: Ill-defined opacity within the left mid and lower lung may reflect some combination of atelectasis, pneumonia and/or a neoplastic process with a possible effusion. Electronically Signed: Dayna Han MD at 12:54 EDT , Chest CTA 12/31/23 13:21 IMPRESSION: 1. No demonstrated pulmonary embolism or arterial dissection. 2. Prominent interstitial lung markings may suggest an infiltrate/pneumonia pattern. However, lymphangitic carcinoma should be considered. 3. Left lower lobe and left midlung infiltrate. This can be related to pneumonia. However it is worse an underlying new plastic processes of concern. 4. Diffuse mediastinal adenopathy. This is worse. Consider neoplastic process. 5. Small left pleural effusion. Electronically Signed: Jack Rolle MD at 14:27 EDT , Rhythm Strip Rhythm Strip: Sinus Rhythm Rate: 80 Physical Exam Const alert and no apparent distress Constitutional Narrative: Sitting in bedside recliner. General Appearance: cooperative HEENT normocephalic and head/scalp atraumatic Eyes EOMs intact bilaterally and conjunctivae normal Neck supple General: trachea midline Chest inspection of chest normal Resp Auscultation: diminished lung sounds; Negative for rales, rhonchi or wheezes Cardio regular rate and regular rhythm GI normal to inspection, nondistended, normoactive bowel sounds Extremity General Extremity: edema bilateral lower extremity Skin no rashes or lesions noted Neuro CN's II-XII intact bilaterally, moves all extremities and no focal motor deficits Psych Mood & Affect: flat affect Charges/Coding Visit Charges Inpatient E&M: 97590 Subs Hosp L2
--- NOTE | 2024-01-03 10:51 | CASEMGMT ---
REGLA GUTIERREZ reviewed notes regarding possible SNF placement at discharge. Patient listed as VA benefits, REGLA GUTIERREZ called registration and confirmed that patient has MCR AB. RN MATT in to discuss discharge planning with patient and discussions of SNF placement at discharge. Patient states he does not recall conversation with SW. REGLA GUTIERREZ discuss progress with therapy and recommendations. Patient would like to see how he does with therapy today and revisit conversation of SNF at discharge. REGLA GUTIERREZ explained that patient would need to have this hospitalization billed under [employer] if he would like [employer] to pay for SNF stay. Patient voiced understanding. CM to monitor progress with therapy and recommendations at discharge and need for VA declination form to be signed.
--- NOTE | 2024-01-03 11:05 | EGD_PTH ---
PATIENT: JONAH ALEXANDRA LOC: [facility] U#:[id number] AGE/SX: 78/M ROOM: [facility] RE12/31/[address]: Dr. Bro Redd DO : 1945 BED: 1 DIS: 01/07/2024 SPEC #: [id number] RECD: 01/03/24 17:18 STATUS: DEIDRE REQ #: [id number] NICHOLAS: 01/03/24 11:[address]: Frederick Chew DEPT: SURGICAL PATHOLOGY RECD BY: Cynthia Clark ENTERED: 01/04/24 08:15 SP TYPE: EGD BIOPSY OTHR DR: REGLA Navarro Dr., MD Dr. Andrew Fredericks, MD Dr. Adan Mora, MD Dr. Arshad Rehan, MD Dr. Brendan Duffy, MD Dr. Cyril Ofori, MD Dr. Derek Brown, DO Dr. David P Myers, MD Dr. Emile Daoud, MD Dr. Eric Jopperi, DO Dr. Edward Matheis, MD Dr. Farouk Belal, MD Dr. Gautam Baskaran, MD Dr. Yordanos Habtegebriel, MD Dr. Hemant Dand, MD Dr. Jose Ochoa, MD Dr. Kimber Foust, MD Dr. Lamia Aljundi, MD Dr. Mark Elderbrock, MD Dr. Michael Hughes, MD Dr. Nana Yaa Koram, MD Dr. Nagapradee Nagajothi, MD Dr. Pritam Ghosh, MD Dr. Pavan Irukulla, MD Dr. Saad Farooqi, MD Dr. Salvatore Savona, MD Dr. Vikram Anand, MD Dr. William Haden, MD John Roof, MARTINEZ Osei PA Tissues: Esophagus, NOS Procedures: Special Stain Group I Surgery Specimen Level IV Alcian Blue/PAS (control) Comments: @ Specimen number changed from [id number] to [id number] @ on 01/04/24 at 0858 by JOSE M. @ Ordering doctor for JOSE DAVIDRAQUEL edited from to @ by JOSE M at 01/04/24 0858 @ Submitting doctor edited from to @ by JOSE M at 01/04/24 0858 HEADER OPERATION: EGD, biopsy, dilation PRE-OP DIAGNOSIS: Dysphagia TISSUE SUBMITTED: Distal esophagus biopsy MICROSCOPIC DIAGNOSIS Distal esophagus, biopsy: Fragments of gastroesophageal mucosa with chronic inflammation. Intestinal metaplasia (goblet cell metaplasia) not identified. See comment. 01/05/2024 COMMENT Alcian blue/PAS stain with matched control is used in the evaluation of the specimen. MICROSCOPIC DESCRIPTION Slides are reviewed. GROSS DESCRIPTION Received in fixative is one container labeled with the patient's name and designated Distal esophagus biopsy. The specimen consists of multiple irregular fragments of light waller soft tissue that in aggregate measure 1.0 x 0.3 x 0.1 cm. The specimen is totally submitted in one cassette. 01/04/2024 TC:3 CPT:14826,24679
[2024-01-03 11:22] LABS: Bedside Glucose 133 mg/dL (74-106)
[2024-01-03] MEDS: 0.9% Saline Lock 10 ML Syringe IV (11:26)
[2024-01-03] MEDS: 0.9% Normal Saline (1000mL) 1,000 ML 15 ML IV (12:02)
--- NOTE | 2024-01-03 12:56 | PCM.PRE.AN2 ---
ASA Classification* ASA Classification ASA Classification: 3 Assessment & Plan Anesthesia* Anesthesia Assessment Anesthesia Assessment: Discussed sedation and/or anesthesia options, risks, benefits, and alternatives with patient/parents/legal guardian/POA. Questions invited. The patient/parents/legal guardian/POA seems to understand and agrees to proceed with anesthesia plan. Reviewed the physical assessment, medical history, allergy history and patient home medications list prior to surgery/procedure/anesthetic and documented any changes. Performed airway and anesthesia risk assessments. Anesthesia Type Anesthesia Type: MAC Anesthesia Focused Assessment* Temperature: 97.7 F Pulse Rate: 90 Blood Pressure: 93/65 Respiratory Rate: 16 Pulse Ox: 98 Fraction of Inspired Oxygen (FIO2): 40 Airway Assessment Mouth opens: >3 cm Mallampati Score: II Focused Labs Anesthesia Preop lab: CBC WBC 8.0 K/mm3 (4.4-11.0) 01/03/24 05:36 RBC 4.42 M/mm3 (4.6-6.2) L 01/03/24 05:36 Hgb 12.7 g/dL (13.0-16.5) L 01/03/24 05:36 Hct 41.5 % (40-54) 01/03/24 05:36 Plt Count 146 K/mm3 (150-450) L 01/03/24 05:36 CHEMISTRY Potassium 3.8 mmol/L (3.5-5.1) 01/03/24 05:36 Sodium 140 mmol/L (136-145) 01/03/24 05:36 Magnesium 2.1 mg/dL (1.6-2.6) 01/01/24 02:16 Phosphorus 3.8 mg/dL (2.5-4.9) 01/01/24 02:16 BUN 63 mg/dL (7-18) H 01/03/24 05:36 Creatinine 1.99 mg/dL (0.70-1.30) H 01/03/24 05:36 Glucose 109 mg/dL (74-106) H 01/03/24 05:36 POC Glucose 133 mg/dL (74-106) H 01/03/24 11:05 COAG PT 14.0 SECONDS (11.7-14.9) 12/05/23 18:00 Pre-Assessment Diagnosis/Proposed Procedure Planned Operative Procedure(s): EGD Anesthesia History 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 When Was Last Pacemaker Check QUESTION #4 FULL TEXT: You/Your Family Experience fever (hyperthermia) with Anesthesia Last Oral Intake Last Oral intake: Last Oral Intake NPO since Meds taken in AM with sips of water? Meds patient instructed to take am of surgery PONV PONV - plaster model and mold maker: PONV - plaster model and mold maker Female HX of Motion Sickness HX of N/V After Surgery Non-Smoker Duration of Surgery greater than 60 minutes Number of Risk Factors PONV Score Height & Weight Height & Weight: Anesthesia: Height & Weight Height 5 ft 4.96 in 01/02/24 09:59 Weight: 66.4 kg 01/03/24 03:37 Body Mass Index (BMI) 24.3 01/03/24 03:37 Respiratory Assessment Respiratory Assessment - plaster model and mold maker: Respiratory Tract Infection Hx - plaster model and mold maker Hx Respiratory Tract Infection No 12/14/23 03:53 STOP Sleep Apnea STOP Sleep Apnea - plaster model and mold maker: STOP Sleep Apnea - plaster model and mold maker Hx Hypertension Yes 01/01/24 13:35 Hx Sleep Apnea Yes 12/31/23 15:39 CPAP No 12/31/23 15:39 BIPAP No 12/31/23 15:39 Do you snore loudly (louder than talking or can be heard Do you often feel tired/ fatigued/ sleepy during daytime? Has anyone observed you stop breathing during sleep? STOP Results Positive 12/31/23 15:39 QUESTION #5 FULL TEXT : Do you snore loudly (louder than talking or can be heard through closed doors)? 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 Specify any problems Hx of Preganancy in last 3 N/A 12/31/23 15:39 Months Nurse Filling Out Transfusion LUCIAN 12/31/23 15:39 & Questions: Date: 01/01/24 12/31/23 15:39 Time: 01:44 12/31/23 15:39 Patient unable to answer at this time (ie. confused, unrespo /Reproduction History /Reproductive History - plaster model and mold maker: /Reproductive Hx- plaster model and mold maker Hx Now Gestational Age (in weeks): EDC: Hx Hx Para Hx Section SAB No 12/14/23 03:53 Active Medications Active Medications: Current Medications Generic Name Dose Route Start Last Admin Trade Name Freq PRN Reason Stop Dose Admin Acetaminophen 650 mg 12/31/23 15:36 01/02/24 20:57 Acetaminophen 325 Mg Tablet PO 650 mg Q6H PRN PRN Administration Pain 1-10 Or Fever >100.7 Albuterol/Ipratropium 3 ml 01/01/24 09:00 01/03/24 06:37 Ipratropium/Albuterol Sulfate 3 Ml Ampul.Neb INHALATION 3 ml Q4HWA.RT DONA Administration Glucagon 1 mg 12/31/23 15:36 Glucagon 1 Mg/Ml Syringe IM X1 PRN HYPOGLYCEMIA Protocol Heparin Sodium (Porcine) 5,000 unit 12/31/23 15:36 01/03/24 05:48 Heparin Injection (Vial) 5,000 Unit/Ml Vial SC 5,000 unit Q8 DONA Administration Dextrose 250 mls @ 0 mls/hr 12/31/23 15:36 Dextrose 10%-Water IV .Q0M PRN HYPOGLYCEMIA Protocol As Directed Piperacillin Sod/Tazobactam 50 mls @ 12.5 mls/hr 12/31/23 15:36 01/03/24 09:48 Sod 3.375 gm/ Sodium Chloride IV Infused Q8 DONA Infusion Sodium Chloride 250 mls @ 15 mls/hr 12/31/23 15:53 01/02/24 20:30 IV 0 mls/hr .[id number] PRN Infusion Additional IVPB Infusion Sodium Chloride 250 mls @ 15 mls/hr 12/31/23 15:53 IV .[id number] PRN Saline Flush Vancomycin IV-PHARMACY TO DOSE 500 mls @ 250 mls/hr 12/31/23 19:47 1 each/ Sodium Chloride IV X1 PRN Rx to Dose Protocol Vancomycin HCl 1,000 mg in 200 mls @ 200 mls/hr 01/01/24 20:30 01/02/24 21:54 Vancomycin IV Infused Q24H DONA Infusion Sodium Chloride 1,000 mls @ 15 mls/hr 01/03/24 11:55 01/03/24 12:02 IV 15 mls/hr .Q48H DONA Administration Pantoprazole Sodium 40 mg/ 110 mls @ 330 mls/hr 01/03/24 22:00 Sodium Chloride IV Q12 DONA Insulin Human Lispro 0 unit 01/02/24 16:00 01/03/24 11:24 Insulin Lispro 100 Unit/Ml Insuln.Pen SC Not Given ACHS [facility] Protocol Methylprednisolone 40 mg 01/01/24 10:00 01/03/24 11:26 Methylprednisolone 40 Mg/Ml Vial IV 40 mg DAILY DONA Administration Nitroglycerin 0.4 mg 12/31/23 15:36 Nitroglycerin (Inpatient Use) 0.4 Mg Tab.Subl SL Q5M PRN CARDIAC/CHEST PAIN Ondansetron HCl 4 mg 12/31/23 15:36 Ondansetron 4 Mg/2 Ml Vial IV Q8H PRN PRN NAUSEA/VOMITING Oxycodone HCl 5 mg 12/31/23 15:36 01/02/24 20:57 Oxycodone 5 Mg Tablet PO 5 mg Q4H PRN PRN Administration Pain Score 4-10 Sodium Chloride 10 - 40 ml 12/31/23 15:53 01/03/24 11:26 0.9% Saline Lock 10 Ml Syringe IV 20 ml UD PRN Administration SALINE FLUSH Vancomycin Protocol 1 lab 01/04/24 18:00 Vancomycin Trough/Random Due MC 01/04/24 22:00 DAILY [facility] Medical History Dysphagia CHF exacerbation Hearing loss, left Hearing loss, right Anxiety Diabetes Chronic pain Kidney stones Kidney disease Former smoker Sleep apnea COPD (chronic obstructive pulmonary disease) Chest pain Myocardial infarct Hypertension DVT (deep venous thrombosis) Unable to walk Acute kidney injury Home Medications ?Medication ?Instructions ?Recorded ?Last Taken ?Type gabapentin 400 mg capsule 400 mg PO TID NERVE PAIN 08/20/18 12/05/23 History glipizide 5 mg tablet 5 mg PO .BEFORE MEALS DM 08/20/18 12/05/23 History sertraline 50 mg tablet 100 mg PO DAILY DEPRESSION 08/20/18 12/05/23 History carvedilol 3.125 mg tablet 3.125 mg PO BID blood pressure 08/21/18 12/05/23 Rx clopidogrel 75 mg tablet 75 mg PO DAILY anti platelet 08/21/18 12/05/23 Rx albuterol 90 mcg/actuation aerosol 90 mcg inhalation .4X A DAY PRN SOB 12/30/22 Unknown History inhaler amlodipine 10 mg tablet 10 mg PO DAILY blood pressure 12/30/22 Unknown History cholecalciferol (vitamin D3) 25 75 mcg PO DAILY vitamin 12/30/22 12/05/23 History mcg (1,000 unit) capsule cyanocobalamin (vitamin B-12) 1,000 mcg PO DAILY vitamin 12/30/22 12/05/23 History 1,000 mcg capsule hydrocodone-acetaminophen 5-325mg 1 tab PO TID pain 12/30/22 12/05/23 History 5mg-325mg mometasone 200 mcg/actuation HFA 2 puff inhalation BID breathing 12/30/22 12/05/23 History aerosol inhaler (Asmanex HFA) rosuvastatin 40 mg tablet (Crestor) 40 mg PO QHS cholesterol 12/30/22 12/04/23 History tiotropium 2.5 mcg-olodaterol 2.5 2 inh inhalation DAILY breathing 12/30/22 12/05/23 History mcg/actuation mist for inhalation (Stiolto Respimat) aspirin 81 mg tablet,delayed 81 mg PO DAILY heart meera 12/05/23 12/05/23 History release (Adult Aspirin Regimen) furosemide 40 mg tablet 40 mg PO DAILY diuretic 12/05/23 12/05/23 History amoxicillin 500 mg-potassium 1 tab PO BID 5 days #10 tabs 12/15/23 Unknown Rx clavulanate 125 mg tablet (Augmentin) furosemide 20 mg tablet 20 mg PO .evening 1 month #30 tabs 12/15/23 Unknown Rx insulin glargine 100 unit/mL 18 unit (0.18 mL) subcut QHS 30 12/15/23 12/04/23 Rx subcutaneous solution days #0 mL insulin lispro 100 unit/mL 5 unit (0.05 mL) subcut TIDAC 1 12/15/23 Unknown Rx subcutaneous pen (Humalog KwikPen month #15 mL (U-100) Insulin) insulin lispro 100 unit/mL See Protocol subcut ACHS #0 mL 12/15/23 Unknown Rx subcutaneous pen (Humalog KwikPen (U-100) Insulin) pantoprazole 40 mg tablet,delayed 40 mg PO BID 30 days #60 tabs 12/15/23 Unknown Rx release (Protonix) prednisone 20 mg tablet 40 mg (2 x 20 mg) PO BREAKFAST 5 12/15/23 Unknown Rx days #10 tabs sucralfate 1 gram tablet (Carafate) 1 g PO TID #90 tabs 12/22/23 Unknown Rx Allergy/AdvReac Type Severity Reaction Status Date / Time No Known Allergies Allergy Verified 12/31/23 11:35 Surgical History Hx of CABG History of coronary artery stent placement Social History household members: spouse Smoking Status: Former smoker Review of Systems (Anesthesia) ROS Narrative System reviewed and no additional complaints, except as documented.
--- NOTE | 2024-01-03 13:28 | PCM.POST.ANE ---
Anesthesia: Postop Eval I Current Vital Signs Temperature: 98.5 F Pulse Rate: 90 Blood Pressure: 110/52 Respiratory Rate: 20 Pulse Ox: 95 Assessment Airway patent: Yes Spontaneous unlabored respirations: Yes nausea: No Vomiting: No Anesthesia Complication: No Fluid Hydration Crystalloid volume administer (ml): 200 Total IV fluid infused: 200 Progress Note Anesthesia document: Postop Eval 1 completed: Yes
--- NOTE | 2024-01-03 13:33 | POSTOPAN2_ITS ---
Anesthesia Postop Eval I Sum Postop Eval Completion status Anesthesia document: Postop Eval 1 completed: Yes Anesthesia Postop Eval I Summary Anesthesia Postop Eval I Summary: Anesthesia Postop Eval I: Assessment Summary Airway patent Yes 01/03/24 13:28 KEY OPERATOR.CSIR Spontaneous unlabored Yes 01/03/24 13:28 KEY OPERATOR.CSIR respirations Mental status nausea No 01/03/24 13:28 KEY OPERATOR.CSIR Vomiting No 01/03/24 13:28 KEY OPERATOR.CSIR Anesthesia Postop Eval I: Fluid Summary Crystalloid volume administer 200 01/03/24 13:28 KEY OPERATOR.CSIR (ml) Colloids volume administered ( ml) Blood Product volume administered (ml) Total IV fluid infused 200 01/03/24 13:28 KEY OPERATOR.CSIR Anesthesia Postop Eval I: Summary Notes Anesthesia Complication No 01/03/24 13:28 KEY OPERATOR.CSIR Anesthesia Complication Comment: Post-operative progress note Anesthesia: Postop Eval II Evaluation Mental status: Awake Pain Level: 0 nausea: No Vomiting: No
--- NOTE | 2024-01-03 13:33 | OP.CCLET_ITS ---
01/03/2024 Mich Rosales [address] [place] [address] Re : Upper GI endoscopy procedure for [facility] Dear Dr. Rosales This procedure was performed on Wednesday, January 03, 2024. My impressions and recommendations are as follows: Impressions : - LA Grade B reflux esophagitis with no bleeding. Biopsied. - Moderate Schatzki ring. Dilated. - No gross lesions in the entire stomach. - No gross lesions in the first portion of the duodenum. Recommendations : - [facility]. - Resume previous diet. - Continue present medications. My findings are described in the full procedure note, which is enclosed. If I can be of further assistance, please feel free to contact me at . Sincerely, Frederick Chew, 01/03/2024 1:32:47 PM This report has been signed electronically.
--- NOTE | 2024-01-03 13:33 | OP.EGD_ITS ---
Patient Name: Rodrigo Mackey Procedure Date: 01/03/2024 12:57 PM Date of : 1945 Age: 78 Procedure: Upper GI endoscopy Indications: Dysphagia, Abnormal UGI series, Esophageal motility disorder Providers: Frederick Chew DO Medicines: Monitored Anesthesia Care Patient Profile: This is a 78 year old male. Refer to note in patient chart for documentation of history and physical. Patient has symptoms of dysphagia with both liquids and solids. Complications: No immediate complications. Procedure: Pre-Anesthesia Assessment: - Prior to the procedure, a History and Physical was performed, and patient medications and allergies were reviewed. The patient is competent. The risks and benefits of the procedure and the sedation options and risks were discussed with the patient. All questions were answered and informed consent was obtained. Patient identification and proposed procedure were verified by the physician in the pre-procedure area. Mental Status Examination: alert and oriented. Airway Examination: normal oropharyngeal airway and neck mobility. Respiratory Examination: clear to auscultation. CV Examination: normal. Prophylactic Antibiotics: The patient does not require prophylactic antibiotics. Prior Anticoagulants: The patient has taken no anticoagulant or antiplatelet agents except for NSAID medication. ASA Grade Assessment: III - A patient with severe systemic disease. After reviewing the risks and benefits, the patient was deemed in satisfactory condition to undergo the procedure. The anesthesia plan was to use monitored anesthesia care (MAC). Immediately prior to administration of medications, the patient was re-assessed for adequacy to receive sedatives. The heart rate, respiratory rate, oxygen saturations, blood pressure, adequacy of pulmonary ventilation, and response to care were monitored throughout the procedure. The physical status of the patient was re-assessed after the procedure. After obtaining informed consent, the endoscope was passed under direct vision. Throughout the procedure, the patient's blood pressure, pulse, and oxygen saturations were monitored continuously. The gastroscope was introduced through the mouth, and advanced to the second part of duodenum. The upper GI endoscopy was accomplished without difficulty. The patient tolerated the procedure well. Scope In: 1:08:02 PM Scope Out: 1:18:22 PM Total Procedure Duration Time 0 hours 10 minutes 20 seconds Findings: LA Grade B (one or more mucosal breaks greater than 5 mm, not extending between the tops of two mucosal folds) esophagitis with no bleeding was found 39 to 42 cm from the incisors. Biopsies were taken with a cold forceps for histology. Verification of patient identification for the specimen was done. Estimated blood loss was minimal. A moderate Schatzki ring was found at the gastroesophageal junction. A guidewire was placed and the scope was withdrawn. Dilation was performed with a Savary dilator with no resistance at 60 Fr. The dilation site was examined and showed moderate mucosal disruption. No gross lesions were noted in the entire examined stomach. No gross lesions were noted in the first portion of the duodenum. Impression: - LA Grade B reflux esophagitis with no bleeding. Biopsied. - Moderate Schatzki ring. Dilated. - No gross lesions in the entire stomach. - No gross lesions in the first portion of the duodenum. Recommendation: - [facility]. - Resume previous diet. - Continue present medications. Procedure Code(s): --- Professional --- 43454, Esophagogastroduodenoscopy, flexible, transoral; with insertion of guide wire followed by passage of dilator(s) through esophagus over guide wire 89391, 59,51, Esophagogastroduodenoscopy, flexible, transoral; with biopsy, single or multiple CPT copyright 2021 [employer]. All rights reserved. The codes documented in this report are preliminary and upon rabies inspector review may be revised to meet current compliance requirements. Frederick Chew DO 01/03/2024 1:32:47 PM This report has been signed electronically. Number of Addenda: 0 Note Initiated On: 01/03/2024 12:57 PM
--- NOTE | 2024-01-03 13:33 | PCM.POSTANE2 ---
Anesthesia Postop Eval I Sum Postop Eval Completion status Anesthesia document: Postop Eval 1 completed: Yes Anesthesia Postop Eval I Summary Anesthesia Postop Eval I Summary: Anesthesia Postop Eval I: Assessment Summary Airway patent Yes 01/03/24 13:28 [email or web address] Spontaneous unlabored Yes 01/03/24 13:28 [email or web address] [email or web address] respirations Mental status nausea No 01/03/24 13:28 [email or web address] [email or web address] Vomiting No 01/03/24 13:28 [email or web address] Anesthesia Postop Eval I: Fluid Summary Crystalloid volume administer 200 01/03/24 13:28 [email or web address] (ml) Colloids volume administered ( ml) Blood Product volume administered (ml) Total IV fluid infused 200 01/03/24 13:28 [email or web address] Anesthesia Postop Eval I: Summary Notes Anesthesia Complication No 01/03/24 13:28 [email or web address] Anesthesia Complication Comment: Post-operative progress note Anesthesia: Postop Eval II Evaluation Mental status: Awake Pain Level: 0 nausea: No Vomiting: No
--- NOTE | 2024-01-03 15:22 | CHAPLAIN ---
Type of Pastoral Visit _x__ Initial Visit ___ Follow-up Visit ___ On-call Visit ___ General Patient Visit ___ Spiritual Assessment ___ Family Conference ___ Bereavement ___ Rapid Response ___ Code Blue ___ Other (describe below) Pastoral Care Referral From _x__ Patient ___ Family ___ Nurse ___ Physician ___ Diabetes Specialist ___ Consulting Sales Executive ___ Other (describe below) Sacrament/Intervention ___ Active listening ___ Anointing ___ Latter Day ___ Bereavement ___ Communion ___ Soha exploration ___ ___ Life review ___ Prayer ___ Reconciliation ___ Sacrament of Sick _x__ Supportive presence ___ Wedding ___ Other (describe below) Pastoral Comments patient is offered support and presence; pt states that he is doing fine and has no concerns; pt is resting quietly and watches some TV; pt says that a prayer would be fine but he has no other needs now
[2024-01-03] MEDS: Acetaminophen 325 MG Tablet 650 MG PO (16:06)
[2024-01-03] MEDS: oxyCODONE 5 MG Tablet PO ×2 (16:06→20:45)
[2024-01-03] MEDS: Insulin Lispro 100 UNIT/ML INSULN.PEN SC ×2 (16:13→20:41)
--- NOTE | 2024-01-03 16:22 | NURSING ---
01/03/24@1600- attempted to update home medication list with family but was unsuccessful. family to call into hospital after they get home so medication list can be updated.
[2024-01-03 16:28] LABS: Bedside Glucose 166 mg/dL (74-106)
[2024-01-03] MEDS: Vancomycin IV 1,000 MG/200 ML BAG 200 MG IV (20:31)
[2024-01-03] MEDS: Pantoprazole Sodium 40 MG in 0.9% Normal Saline (100mL MB+) 100 ML 330 MG IV (21:53)
[2024-01-03] MEDS: 0.9% Normal Saline (250mL Bag) 250 ML 15 ML IV (21:56)
[2024-01-03 22:53] LABS: Bedside Glucose 241 mg/dL (74-106)
[2024-01-04] VITALS (15 sets, daily range): BP systolic 108–129; BP diastolic 56–63; PULSE 75–97; RESP 12–31; TEMP 36.3–36.7; O2SAT 89–99; BMI 24.7
[2024-01-04 05:02] LABS: Absolute Lymphocyte Count 1.21 X10^3/uL (0.83-4.51); Absolute Neutrophil Count 5.1 X10^3/uL (2.0-7.7); Basophil# 0.02 X10^3/uL; Basophil% 0.3 % (0-1); Eosinophil# 0.13 X10^3/uL; Eosinophils% 1.9 % (0-5); Hematocrit 39.1 % (40-54); Hemoglobin 12.2 g/dL (13.0-16.5); Lymphocyte # 1.21 X10^3/ul (0.83-4.51); Lymphocyte % 17.3 % (19-41); Mean Corp Hgb Conc 31.2 g/dL (32-36); Mean Corpuscular Hgb 29.3 pg (27.0-32.0); Mean Platelet Vol. 11.1 fl (6.2-12.0); Monocyte# 0.57 X10^3/uL; Monocyte% 8.1 % (0-10); NRBC Flagged by Analyzer 0 % (0-5); Neutrophil # 5.05 X10^3/uL (2.7-7.7); Platelet Count 119 K/mm3 (150-450); RBC Distribution Width CV 14.9 % (11.6-14.6); RBC Distribution Width SD 51.8 fl (35.1-43.9); Red Blood Count 4.16 M/mm3 (4.6-6.2)
[2024-01-04 05:21] LABS: Anion Gap 6 (5-15); BUN 56 mg/dL (7-18); BUN/Creat Ratio 28.4 RATIO (10-20); Chloride 102 mmol/L (98-107); Creatinine, Serum 1.97 mg/dL (0.70-1.30); EST Glomerular Filtration Rate 35 mL/min (>60); Est Glom Filt Rate - Afr Amer 43 mL/min (>60); Estimated Creatinine Clearance 26.71 ml/min; Glucose 111 mg/dL (74-106); Potassium 3.8 mmol/L (3.5-5.1); Sodium Level 139 mmol/L (136-145)
[2024-01-04] MEDS: Piperacil/Tazobactam 3.375 GM in 0.9% Normal Saline (50mL MB+) 50 ML IV ×3 (05:47→21:25)
[2024-01-04] MEDS: Heparin Injection (Vial) 5,000 UNIT/ML VIAL 5000 UNIT SC ×3 (05:47→21:25)
[2024-01-04 07:07] LABS: Bedside Glucose 99 mg/dL (74-106)
[2024-01-04] MEDS: Ipratropium/Albuterol Sulfate 3 ML AMPUL.NEB INHALATION ×4 (07:12→19:25)
--- NOTE | 2024-01-04 08:13 | PN.HOSP_ITS ---
Reason for Visit Reason for Visit: Diagnoses Essential (primary) hypertension (12/31/23) Atherosclerotic heart disease of [place] coronary artery without angina pectoris (12/31/23) Unspecified systolic (congestive) heart failure (12/31/23) Acute respiratory failure with hypoxia (12/31/23) Acute respiratory failure with hypercapnia (12/31/23) Chronic kidney disease, unspecified (12/31/23) Dysphagia, unspecified (12/31/23) Subjective Subjective No new complaints. Objective Data Objective Data Vital Signs: Vital Signs Temp Pulse Resp BP Pulse Ox O2 Del Method O2 Flow Rate 36.4 C L 80 16 123/60 H 98 Bi-pap 6 01/04/24 05:53 01/04/24 05:53 01/04/24 05:53 01/04/24 05:53 01/04/24 05:53 01/04/24 05:53 01/03/24 20:49 FiO2 35 01/04/24 05:53 Oxygen Flow Rate (L/min) 6 Oxygen Delivery Method Bi-pap Weight: 67.2 kg Body Mass Index (BMI) 24.7 Intake & Output: Intake and Output for Last 24 Hours 01/02/24 01/03/24 01/04/24 23:59 23:59 23:59 Intake Total 1049.5 / 1049.5 940.25 / 940.25 200 / 200 Output Total 1500 / 1500 650 / 1150 900 / 900 Balance -450.5 / -450.5 290.25 / -209.75 -700 / -700 Lab / Micro Data 01/04/24 04:20 01/04/24 04:20 Labs: Laboratory Results - last 24 hr 01/03/24 11:05: POC Glucose 133 H 01/03/24 16:08: POC Glucose 166 H 01/03/24 20:40: POC Glucose 241 H 01/04/24 04:20: WBC 7.0, RBC 4.16 L, Hgb 12.2 L, Hct 39.1 L, MCV 94.0, MCH 29.3, MCHC 31.2 L, RDW Std Deviation 51.8 H, RDW Coeff of Audi 14.9 H, Plt Count 119 L, MPV 11.1, Immature Gran % (Auto) 0.400, Neut % (Auto) 72.0 H, Lymph % (Auto) 17.3 L, [place] % (Auto) 8.1, Eos % (Auto) 1.9, Baso % (Auto) 0.3, Absolute Neuts (auto) 5.1, Absolute Lymphs (auto) 1.21, Nucleated RBC % 0, Sodium 139, Potassium 3.8, Chloride 102, Carbon Dioxide 31.0, Anion Gap 6, BUN 56 H, C reatinine 1.97 H, Estim Creat Clear Calc 26.71, Est GFR (MDRD) Af Amer 43 L, Est GFR (MDRD) Non-Af 35 L, BUN/Creatinine Ratio 28.4 H, Glucose 111 H, Calcium 9.0 01/04/24 06:47: POC Glucose 99 Micro: Microbiology 01/01/24 21:50 Sputum, Expectorated/Coughed Gram Stain - Final 01/01/24 21:50 Sputum, Expectorated/Coughed Respiratory Culture - Preliminary Appears to be normal respiratory benitez. Further studies to follow. 12/31/23 13:39 Blood Culture (Wb) - Left Forearm Blood Culture - Preliminary No growth in 48 hours. 12/31/23 17:32 Urine, Clean Catch Legionella Antigen - Final 12/31/23 17:32 Urine, Clean Catch Streptococcus pneumoniae Antigen (M - Final 12/31/23 11:46 Mucosa - Nose SARS-CoV-2, Influenza & RSV (PCR) - Final Rhythm Strip Rhythm Strip: Sinus Rhythm Rate: 80 Physical Exam Const alert and no apparent distress HEENT head/scalp atraumatic and moist oral mucous membranes Resp normal respiratory effort and no retractions Resp Narrative: coarse breath sounds bilaterally. Cardio regular rate, regular rhythm, S1 normal heart sound and S2 normal heart sound GI normal to inspection, nondistended, normoactive bowel sounds and soft to palpation Extremity Extremity Narrative: bilateral ankle edema. Neuro Sensorium / Orientation: awake and alert Assessment & Plan Assessment/Plan (1) Acute respiratory failure with hypoxia and hypercarbia: PLAN: Plan Acute hypoxic and hypercapnic respiratory failure * Secondary to COPD exacerbation, pneumonia. * BiPAP with naps and nightly. * Patient not felt to be in CHF exacerbation by cardiology, who has since signed off. * restarted on furosemide Aspiration pneumonia * Continue with antibiotics with pip-tazo and vancomycin * Patient had a speech therapy eval that showed thin liquids with retention and midesophagus with retrograde flow in the upper esophagus. * GI on consult and plan is for the patient undergo an EGD. Patient had an EGD on December 14 that showed benign-appearing esophageal stenosis that was dilated. Grade a reflux esophagitis with no bleeding. Medium size hiatal hernia. Chronic gastritis that was biopsied. Gastric biopsy showed chronic gastritis. Esophageal biopsy showed mild inflammation at the GE junction. EGD on 01/02 showed grade B reflux esophagitis with no bleeding, moderate Schatzki ring, no lesions in the stomach and no lesions in the first part of the duodenum. Gastritis/esophagitis * Resume PPI * EGD on 01/02 showed grade B reflux esophagitis with no bleeding, moderate Schatzki ring, no lesions in the stomach and no lesions in the first part of the duodenum. Acute COPD exacerbation * Continue with bronchodilators and methylprednisolone. Chronic conditions * CAD: Continue with aspirin and statin. * Heart failure with reduced ejection fraction: EF of 2025%. Seen by cardiology. Not felt to be in acute CHF exacerbation at this time. * Diabetes mellitus type 2:Fair control at this time. Glargine held for now. Sliding scale insulin. VTE prophylaxis with heparin. Charges/Coding Visit Charges Inpatient E&M: 96469 Subs Hosp L2
--- NOTE | 2024-01-04 08:39 | PCM.PN.INT ---
Assessment & Plan Assessment/Plan (1) Acute respiratory failure with hypoxia and hypercarbia: PLAN: Plan RECOMMENDATIONS: 1. Continue BiPAP therapy with naps and nightly. 2. Supplemental oxygen to maintain saturations at or above 90%. 3. Continue empiric antimicrobials to complete 7 days of therapy. 4. Continue scheduled bronchodilators and steroids. Recommend prednisone taper at discharge. 5. Continue appropriate DVT prophylaxis. 6. Resume home Lasix regimen. 7. Encourage incentive spirometer use and mobilize patient as tolerated. 8. Outpatient pulmonary follow-up following discharge. IMPRESSIONS: 1. Acute respiratory failure with hypoxemia and hypercapnia The patient was recently hospitalized under similar circumstances, with clinical concern for underlying decompensated heart failure and possible COPD in a state of exacerbation, most likely secondary to aspiration. While the patient does have an extensive tobacco abuse history, he is not currently followed by a yarn weight and strength tester. His chest imaging did certainly raise concern for underlying infection coupled with mediastinal adenopathy of unclear etiology. The adenopathy noted on his chest imaging may be reactive in nature secondary to underlying infection. However, this will need to be followed up on an outpatient pulmonary basis, with repeat chest imaging in 6 to 8 weeks. In the interim, it is certainly reasonable to continue empiric antibiotics to complete 7 days of therapy. In addition, the patient will be continued on scheduled bronchodilators and steroids. Ultimately, the patient has a known history of esophageal stenosis status post dilation, but continues to have difficulty with p.o. intake, with concerns raised by speech therapy for recurrent aspiration. Therefore, GI performed another upper endoscopy which demonstrated a Schatzki ring which was dilated. 2. History of tobacco dependency/coronary artery disease/chronic kidney disease/diabetes mellitus/history of esophageal stenosis Complicates care, management, recovery and prognosis. Continue current supportive care as noted above. This note was generated with Tapastreet dictation software. It may contain incorrect words, spelling, and punctuation that were not noted in checking the note before signing. Subjective Subjective The patient was seen and examined at the bedside this morning. Events from the last 24 hours have been reviewed. The patient remains afebrile hemodynamically stable. The patient underwent upper endoscopy yesterday which demonstrated a moderate Schatzki ring which was dilated. The patient remains on empiric antimicrobials, bronchodilators and steroids. Creatinine is stable at 1.97. Objective Data Objective Data The patient's most recent lab work, culture data and imaging studies have all been personally reviewed. Surface echocardiogram demonstrated a mildly dilated LV with an ejection fraction of 20 to 25% and severe global hypokinesis. COVID, influenza and RSV PCR's were negative. Blood, urine and sputum cultures have not demonstrated any growth to date. Vital Signs: Vital Signs Temp Pulse Resp BP Pulse Ox O2 Del Method O2 Flow Rate 97.6 F L 80 16 123/60 H 98 Bi-pap 6 01/04/24 05:53 01/04/24 05:53 01/04/24 05:53 01/04/24 05:53 01/04/24 05:53 01/04/24 05:53 01/03/24 20:49 FiO2 35 01/04/24 05:53 Oxygen Flow Rate (L/min) 6 Oxygen Delivery Method Bi-pap Weight: 148 lb 2.41 oz Body Mass Index (BMI) 24.7 Intake & Output: Intake and Output for Last 24 Hours 01/02/24 01/03/24 01/04/24 23:59 23:59 23:59 Intake Total 1049.5 / 1049.5 940.25 / 940.25 200 / 200 Output Total 1500 / 1500 650 / 1150 900 / 900 Balance -450.5 / -450.5 290.25 / -209.75 -700 / -700 Lab / Micro Data Attestation: I reviewed the patient's lab results. 01/04/24 04:20 01/04/24 04:20 Labs: Laboratory Results - last 24 hr 01/03/24 11:05: POC Glucose 133 H 01/03/24 16:08: POC Glucose 166 H 01/03/24 20:40: POC Glucose 241 H 01/04/24 04:20: WBC 7.0, RBC 4.16 L, Hgb 12.2 L, Hct 39.1 L, MCV 94.0, MCH 29.3, MCHC 31.2 L, RDW Std Deviation 51.8 H, RDW Coeff of Audi 14.9 H, Plt Count 119 L, MPV 11.1, Immature Gran % (Auto) 0.400, Neut % (Auto) 72.0 H, Lymph % (Auto) 17.3 L, [place] % (Auto) 8.1, Eos % (Auto) 1.9, Baso % (Auto) 0.3, Absolute Neuts (auto) 5.1, Absolute Lymphs (auto) 1.21, Nucleated RBC % 0, Sodium 139, Potassium 3.8, Chloride 102, Carbon Dioxide 31.0, Anion Gap 6, BUN 56 H, Creatinine 1.97 H, Estim Creat Clear Calc 26.71, Est GFR (MDRD) Af Amer 43 L, Est GFR (MDRD) Non-Af 35 L, BUN/Creatinine Ratio 28.4 H, Glucose 111 H, Calcium 9.0 01/04/24 06:47: POC Glucose 99 Micro: Microbiology 01/01/24 21:50 Sputum, Expectorated/Coughed Gram Stain - Final 01/01/24 21:50 Sputum, Expectorated/Coughed Respiratory Culture - Preliminary Appears to be normal respiratory benitez. Further studies to follow. 12/31/23 13:39 Blood Culture (Wb) - Left Forearm Blood Culture - Preliminary No growth in 48 hours. 12/31/23 17:32 Urine, Clean Catch Legionella Antigen - Final 12/31/23 17:32 Urine, Clean Catch Streptococcus pneumoniae Antigen (M - Final 12/31/23 11:46 Mucosa - Nose SARS-CoV-2, Influenza & RSV (PCR) - Final ABG Data ABG results: ABG 12/31/23 12/31/23 01/01/24 12:01 13:37 04:18 Specimen Type ART ART ART Sample Site R Radial R Brach R Brach pH 7.27 L 7.31 L 7.32 L Bicarbonate Actual 33.5 H 31.9 H 35.7 H Total CO2 36 34 38 Base Excess 7 H 6 H 10 H O2 Saturation 94 L 91 L 95 O2 % 12.0 60.0 45.0 ABG pCO2 72.9 H* 63.1 H 69.8 H* ABG pO2 85 68 L 87 Meliton Test Positive Positive Positive Respiration Rate 12 O2 Delivery Device HFNC airvo BiPAP Vent Mode Not entered Not entered Not entered Tidal Volume 450.0 Crit Call To/Read Back Yes Yes Blood Gas Notified Whom dioni rosario Blood Gas Notified Time 12:03:07 04:20:32 Clinical Comments 60l 60% Radiography Diagnostic Testing: Radiology Impression Chest X-Ray 12/31/23 12:25 IMPRESSION: Ill-defined opacity within the left mid and lower lung may reflect some combination of atelectasis, pneumonia and/or a neoplastic process with a possible effusion. Electronically Signed: Dayna Han MD at 12:54 EDT , Chest CTA 12/31/23 13:21 IMPRESSION: 1. No demonstrated pulmonary embolism or arterial dissection. 2. Prominent interstitial lung markings may suggest an infiltrate/pneumonia pattern. However, lymphangitic carcinoma should be considered. 3. Left lower lobe and left midlung infiltrate. This can be related to pneumonia. However it is worse an underlying new plastic processes of concern. 4. Diffuse mediastinal adenopathy. This is worse. Consider neoplastic process. 5. Small left pleural effusion. Electronically Signed: Jack Rolle MD at 14:27 EDT , Rhythm Strip Rhythm Strip: Sinus Rhythm Rate: 80 Physical Exam Const alert and no apparent distress General Appearance: cooperative HEENT normocephalic and head/scalp atraumatic Eyes EOMs intact bilaterally and conjunctivae normal Neck supple General: trachea midline Chest inspection of chest normal Resp Auscultation: diminished lung sounds; Negative for rales, rhonchi or wheezes Cardio regular rate and regular rhythm GI normal to inspection, nondistended, normoactive bowel sounds Extremity General Extremity: edema bilateral lower extremity Skin no rashes or lesions noted Neuro CN's II-XII intact bilaterally, moves all extremities and no focal motor deficits Psych Mood & Affect: flat affect Charges/Coding Visit Charges Inpatient E&M: 96731 Subs Hosp L2
[2024-01-04] MEDS: Acetaminophen 325 MG Tablet 650 MG PO ×2 (09:18→18:21)
[2024-01-04] MEDS: Furosemide 40 MG Tablet PO (09:20)
[2024-01-04] MEDS: oxyCODONE 5 MG Tablet PO ×3 (09:20→18:21)
[2024-01-04] MEDS: Pantoprazole Sodium 40 MG in 0.9% Normal Saline (100mL MB+) 100 ML 330 MG IV ×2 (09:20→21:24)
[2024-01-04] MEDS: Insulin Lispro 100 UNIT/ML INSULN.PEN SC ×3 (11:42→21:24)
[2024-01-04 12:11] LABS: Bedside Glucose 241 mg/dL (74-106)
--- NOTE | 2024-01-04 13:20 | CASEMGMT ---
Social Work- SW followed up with pt who confirms preference to return home with [facility]. PT and RNCM collaborated. JESSIKA called [facility] ([phone]) to advise of plans. MYCHAL Monreal
--- NOTE | 2024-01-04 15:33 | CASEMGMT ---
REGLA GUTIERREZ NOTE: Therapy notes from today reviewed. Pt ambuated 40' in halls w/SBA and use of WW. HHC recommended. REGLA GUTIERREZ to room. Pt sitting up in chair. Introduced self and role. Discussed discharge planning. Pt states he wishes to discharge home and feels safe to go home. He would like to resume w/[facility] and declines wanting list of other HHC options. AGUSTIN order placed. german Fernandez sales assistants and salespersons to send [facility] AGUSTIN referral. Pt states his son will be the one taking him home @ dc and he can bring in portable O2 tank for him to go home on. He denies having other discharge needs/concerns at this time. Rl MCNAMARA RN CM
--- NOTE | 2024-01-04 15:43 | CASEMGMT ---
Discharge Planning Resumption HH referral sent to [facility] via [facility]. Rebecca Sloan DC Planning Asst.
[2024-01-04 16:18] LABS: Bedside Glucose 151 mg/dL (74-106)
--- NOTE | 2024-01-04 17:13 | EX.PCM.PN.GI ---
Subjective Subjective Patient underwent upper endoscopy yesterday. He was discovered to have narrowing at the distal esophagus possibly secondary to underlying achalasia or ineffective esophageal motility disorder. He underwent esophageal dilation. He feels like he is swallowing a little bit better today. I told him if it is an esophageal motility disorder would likely only be temporary. Objective Data Objective Data Vital Signs: Vital Signs Temp Pulse Resp BP Pulse Ox O2 Del Method O2 Flow Rate 97.8 F 86 16 108/56 L 93 Nasal Cannula 2 01/04/24 15:00 01/04/24 15:00 01/04/24 15:00 01/04/24 15:00 01/04/24 16:00 01/04/24 16:00 01/04/24 16:00 FiO2 35 01/04/24 05:53 Oxygen Flow Rate (L/min) 2 Oxygen Delivery Method Nasal Cannula Weight: 148 lb 2.41 oz Body Mass Index (BMI) 24.7 Intake & Output: Intake and Output for Last 24 Hours 01/02/24 01/03/24 01/04/24 23:59 23:59 23:59 Intake Total 1049.5 / 1049.5 940.25 / 940.25 360 / 360 Output Total 1500 / 1500 650 / 1150 1100 / 1100 Balance -450.5 / -450.5 290.25 / -209.75 -740 / -740 Lab / Micro Data 01/04/24 04:20 01/04/24 04:20 Labs: Laboratory Results - last 24 hr 01/03/24 20:40: POC Glucose 241 H 01/04/24 04:20: WBC 7.0, RBC 4.16 L, Hgb 12.2 L, Hct 39.1 L, MCV 94.0, MCH 29.3, MCHC 31.2 L, RDW Std Deviation 51.8 H, RDW Coeff of Audi 14.9 H, Plt Count 119 L, MPV 11.1, Immature Gran % (Auto) 0.400, Neut % (Auto) 72.0 H, Lymph % (Auto) 17.3 L, Borden % (Auto) 8.1, Eos % (Auto) 1.9, Baso % (Auto) 0.3, Absolute Neuts (auto) 5.1, Absolute Lymphs (auto) 1.21, Nucleated RBC % 0, Sodium 139, Potassium 3.8, Chloride 102, Carbon Dioxide 31.0, Anion Gap 6, BUN 56 H, Creatinine 1.97 H, Estim Creat Clear Calc 26.71, Est GFR (MDRD) Af Amer 43 L, Est GFR (MDRD) Non-Af 35 L, BUN/Creatinine Ratio 28.4 H, Glucose 111 H, Calcium 9.0 01/04/24 06:47: POC Glucose 99 01/04/24 11:41: POC Glucose 241 H 01/04/24 15:57: POC Glucose 151 H Micro: Microbiology 01/01/24 21:50 Sputum, Expectorated/Coughed Gram Stain - Final 01/01/24 21:50 Sputum, Expectorated/Coughed Respiratory Culture - Preliminary Appears to be normal respiratory benitez. Further studies to follow. 12/31/23 13:39 Blood Culture (Wb) - Left Forearm Blood Culture - Preliminary No growth in 48 hours. 12/31/23 17:32 Urine, Clean Catch Legionella Antigen - Final 12/31/23 17:32 Urine, Clean Catch Streptococcus pneumoniae Antigen (M - Final 12/31/23 11:46 Mucosa - Nose SARS-CoV-2, Influenza & RSV (PCR) - Final Rhythm Strip Rhythm Strip: Sinus Rhythm Rate: 80 Physical Exam Const alert and no apparent distress General Appearance: cooperative HEENT normocephalic and head/scalp atraumatic Eyes EOMs intact bilaterally and conjunctivae normal Neck supple General: trachea midline Chest inspection of chest normal Resp Auscultation: diminished lung sounds; Negative for rales, rhonchi or wheezes Cardio regular rate and regular rhythm GI normal to inspection, nondistended, normoactive bowel sounds Extremity General Extremity: edema bilateral lower extremity Skin no rashes or lesions noted Neuro CN's II-XII intact bilaterally, moves all extremities and no focal motor deficits Psych Mood & Affect: flat affect Assessment & Plan Assessment/Plan (1) Dysphagia: PLAN: Differential diagnosis for him does include esophageal dysphagia secondary to Amy esophagitis, esophageal stricture, esophageal ring, erosive esophagitis from coughing. Results from swallow study today: Esophageal screen - Retention throughout the esophagus. Thin Liquid via small single sip: cup Chin tuck: Esophageal screen - Retention in mid esophagus with retrograde flow to upper esophagus. Also interval diagnosis includes diabetic gastroparesis with bile induced reflux disease. He should undergo upper endoscopy with possible dilation and biopsies of the esophagus. He was explained alternatives, risk, benefits including outstanding bleeding, infection, sepsis, perforation, need for emergent surgery and . Have an ASA of 3. -01/04/2024 - s: LA Grade B (one or more mucosal breaks greater than 5 mm, not extending between the tops of two mucosal folds) esophagitis with no bleeding was found 39 to 42 cm from the incisors. Biopsies were taken with a cold forceps for histology. Verification of patient identification for the specimen was done. Estimated blood loss was minimal. A moderate Schatzki ring was found at the gastroesophageal junction. A guidewire was placed and the scope was withdrawn. Dilation was performed with a Savary dilator with no resistance at 60 Fr. The dilation site was examined and showed moderate mucosal disruption. No gross lesions were noted in the entire examined stomach. No gross lesions were noted in the first portion of the duodenum. Impression: - LA Grade B reflux esophagitis with no bleeding. Biopsied. - Moderate Schatzki ring. Dilated. - No gross lesions in the entire stomach. - No gross lesions in the first portion of the duodenum. If dilation does not help him then the only other options endoscopically for him would be an esophageal stent temporarily, a PEG tube, or Botox injections in the distal esophagus. Charges/Coding Visit Charges Inpatient E&M: 37264 Subs Hosp L3
[2024-01-04 20:38] LABS: Vancomycin, Trough Level 26.9 ug/mL (5.0-15.0)
--- NOTE | 2024-01-04 20:45 | PCM.RX.CS ---
Consult Antibiotic Management Pharmacy has been consulted to manage selected antibiotic: Vancomycin Type of Intervention Type of Consult: Follow-up Suspected Infection Suspected Infection: Pneumonia Prior Doses of Antibiotics Prior Doses of Antibiotics Received/Current Regimen: Vancomycin 1000 mg Q24H last dose 01/03/24 @ 2031 Labs Labs: Sodium 139 mmol/L (136-145) 01/04/24 04:20 Potassium 3.8 mmol/L (3.5-5.1) 01/04/24 04:20 Chloride 102 mmol/L (98-107) 01/04/24 04:20 Carbon Dioxide 31.0 mmol/L (21.0-32.0) 01/04/24 04:20 Anion Gap 6 (5-15) 01/04/24 04:20 BUN 56 mg/dL (7-18) H 01/04/24 04:20 Creatinine 1.97 mg/dL (0.70-1.30) H 01/04/24 04:20 Est GFR (MDRD) Af Amer 43 mL/min (>60) L 01/04/24 04:20 Est GFR (MDRD) Non-Af 35 mL/min (>60) L 01/04/24 04:20 BUN/Creatinine Ratio 28.4 RATIO (10-20) H 01/04/24 04:20 Glucose 111 mg/dL (74-106) H 01/04/24 04:20 Vancomycin Trough 26.9 ug/mL (5.0-15.0) H 01/04/24 19:46 Microbiology Microbiology: Microbiology 01/01/24 21:50 Sputum, Expectorated/Coughed Gram Stain - Final 01/01/24 21:50 Sputum, Expectorated/Coughed Respiratory Culture - Preliminary Appears to be normal respiratory benitez. Further studies to follow. 12/31/23 13:39 Blood Culture (Wb) - Left Forearm Blood Culture - Preliminary No growth in 48 hours. 12/31/23 17:32 Urine, Clean Catch Legionella Antigen - Final 12/31/23 17:32 Urine, Clean Catch Streptococcus pneumoniae Antigen (M - Final 12/31/23 11:46 Mucosa - Nose SARS-CoV-2, Influenza & RSV (PCR) - Final Dosing Weight Weight used for dosin kg Estimated Creatinine Clearance Estimated Creatinine Clearance: ~26 Goal Trough Goal Trough: 15-20 mcg/mL Pharmacy Plan for Drug Dosing Pharmacy Plan for Drug Dosing: Vancomycin trough drawn 23.25 hours after last dose = 26.9, hold vancomycin, random in the morning and dose accordingly. Pharmacy Service will continue to monitor and adjust dosing as required. Follow-Up Labs Follow-Up Labs: Trough: Vancomycin Date/Time Labs Ordered Labs to be done on [date and time ordered]: 01/04/24 @ 0600
[2024-01-04 22:02] LABS: Bedside Glucose 164 mg/dL (74-106)
[2024-01-05] VITALS (12 sets, daily range): BP systolic 112–135; BP diastolic 53–75; PULSE 79–91; RESP 12–28; TEMP 36.4–36.6; O2SAT 88–97; BMI 24.7
[2024-01-05] MEDS: oxyCODONE 5 MG Tablet PO ×4 (02:42→20:26)
[2024-01-05] MEDS: Acetaminophen 325 MG Tablet 650 MG PO ×3 (02:42→17:20)
[2024-01-05] MEDS: Piperacil/Tazobactam 3.375 GM in 0.9% Normal Saline (50mL MB+) 50 ML IV ×3 (05:18→21:39)
[2024-01-05] MEDS: Heparin Injection (Vial) 5,000 UNIT/ML VIAL 5000 UNIT SC ×3 (05:18→20:25)
[2024-01-05 07:34] LABS: Bedside Glucose 127 mg/dL (74-106)
[2024-01-05 07:41] LABS: Vancomycin, Trough Level 23.4 ug/mL (5.0-15.0)
--- NOTE | 2024-01-05 08:12 | PCM.RX.CS ---
Consult Antibiotic Management Pharmacy has been consulted to manage selected antibiotic: Vancomycin Type of Intervention Type of Consult: Follow-up Suspected Infection Suspected Infection: Pneumonia Prior Doses of Antibiotics Prior Doses of Antibiotics Received/Current Regimen: Vancomycin 1000 mg IV given 01/02 @ 2030 Labs Labs: Sodium 139 mmol/L (136-145) 01/04/24 04:20 Potassium 3.8 mmol/L (3.5-5.1) 01/04/24 04:20 Chloride 102 mmol/L (98-107) 01/04/24 04:20 Carbon Dioxide 31.0 mmol/L (21.0-32.0) 01/04/24 04:20 Anion Gap 6 (5-15) 01/04/24 04:20 BUN 56 mg/dL (7-18) H 01/04/24 04:20 Creatinine 1.97 mg/dL (0.70-1.30) H 01/04/24 04:20 Est GFR (MDRD) Af Amer 43 mL/min (>60) L 01/04/24 04:20 Est GFR (MDRD) Non-Af 35 mL/min (>60) L 01/04/24 04:20 BUN/Creatinine Ratio 28.4 RATIO (10-20) H 01/04/24 04:20 Glucose 111 mg/dL (74-106) H 01/04/24 04:20 Vancomycin Trough 23.4 ug/mL (5.0-15.0) H 01/05/24 06:05 Microbiology Microbiology: Microbiology 01/01/24 21:50 Sputum, Expectorated/Coughed Gram Stain - Final 01/01/24 21:50 Sputum, Expectorated/Coughed Respiratory Culture - Preliminary Appears to be normal respiratory benitez. Further studies to follow. 12/31/23 13:39 Blood Culture (Wb) - Left Forearm Blood Culture - Preliminary No growth in 48 hours. 12/31/23 17:32 Urine, Clean Catch Legionella Antigen - Final 12/31/23 17:32 Urine, Clean Catch Streptococcus pneumoniae Antigen (M - Final 12/31/23 11:46 Mucosa - Nose SARS-CoV-2, Influenza & RSV (PCR) - Final Dosing Weight Weight used for dosin kg Estimated Creatinine Clearance Estimated Creatinine Clearance: ~ 26 Goal Trough Goal Trough: 15-20 mcg/mL Pharmacy Plan for Drug Dosing Pharmacy Plan for Drug Dosing: Vancomycin random this AM = 23.4, only down 3.5 points from last night, continue to hold vancomycin, random tomorrow AM. Pharmacy Service will continue to monitor and adjust dosing as required. Follow-Up Labs Follow-Up Labs: Trough: Vancomycin Date/Time Labs Ordered Labs to be done on [date and time ordered]: 01/06/24 @ 0600
[2024-01-05] MEDS: Pantoprazole Sodium 40 MG in 0.9% Normal Saline (100mL MB+) 100 ML 330 MG IV ×2 (09:20→20:38)
--- NOTE | 2024-01-05 09:20 | PCM.PN.HOSP ---
Reason for Visit Reason for Visit: Diagnoses Essential (primary) hypertension (12/31/23) Atherosclerotic heart disease of [place] coronary artery without angina pectoris (12/31/23) Unspecified systolic (congestive) heart failure (12/31/23) Acute respiratory failure with hypoxia (12/31/23) Acute respiratory failure with hypercapnia (12/31/23) Chronic kidney disease, unspecified (12/31/23) Dysphagia, unspecified (12/31/23) Subjective Subjective Breathing okay. Objective Data Objective Data Vital Signs: Vital Signs Temp Pulse Resp BP Pulse Ox O2 Del Method O2 Flow Rate 36.4 C L 88 18 112/53 L 92 Nasal Cannula 5 01/05/24 09:20 01/05/24 09:20 01/05/24 09:20 01/05/24 09:20 01/05/24 09:20 01/05/24 09:20 01/05/24 09:20 FiO2 35 01/05/24 01:45 Oxygen Flow Rate (L/min) 5 Oxygen Delivery Method Nasal Cannula Weight: 67.5 kg Body Mass Index (BMI) 24.7 Intake & Output: Intake and Output for Last 24 Hours 01/03/24 01/04/24 01/05/24 23:59 23:59 23:59 Intake Total 940.25 / 940.25 1169.75 / 1419.75 1318 / 1318 Output Total 650 / 1150 1725 / 2125 1450 / 1450 Balance 290.25 / -209.75 -555.25 / -705.25 -132 / -132 Lab / Micro Data 01/04/24 04:20 01/04/24 04:20 Labs: Laboratory Results - last 24 hr 01/04/24 11:41: POC Glucose 241 H 01/04/24 15:57: POC Glucose 151 H 01/04/24 19:46: Vancomycin Trough 26.9 H 01/04/24 21:22: POC Glucose 164 H 01/05/24 06:05: Vancomycin Trough 23.4 H 01/05/24 06:50: POC Glucose 127 H Micro: Microbiology 01/01/24 21:50 Sputum, Expectorated/Coughed Gram Stain - Final 01/01/24 21:50 Sputum, Expectorated/Coughed Respiratory Culture - Preliminary Appears to be normal respiratory benitez. Further studies to follow. 12/31/23 13:39 Blood Culture (Wb) - Left Forearm Blood Culture - Preliminary No growth in 48 hours. 12/31/23 17:32 Urine, Clean Catch Legionella Antigen - Final 12/31/23 17:32 Urine, Clean Catch Streptococcus pneumoniae Antigen (M - Final 12/31/23 11:46 Mucosa - Nose SARS-CoV-2, Influenza & RSV (PCR) - Final Rhythm Strip Rhythm Strip: Sinus Rhythm Rate: 80 Physical Exam Const alert and no apparent distress HEENT head/scalp atraumatic and moist oral mucous membranes Resp normal respiratory effort and no retractions Resp Narrative: Coarse breath sounds Cardio regular rate, regular rhythm, S1 normal heart sound and S2 normal heart sound GI normal to inspection, nondistended, normoactive bowel sounds, soft to palpation, non-tender and non-distended Psych affect normal Assessment & Plan Assessment/Plan (1) Acute respiratory failure with hypoxia and hypercarbia: PLAN: Plan Acute hypoxic and hypercapnic respiratory failure Secondary to COPD exacerbation, pneumonia. BiPAP with naps and nightly. Patient not felt to be in CHF exacerbation by cardiology, who has since signed off. restarted on furosemide Aspiration pneumonia Continue with antibiotics with pip-tazo and vancomycin Patient had a speech therapy eval that showed thin liquids with retention and midesophagus with retrograde flow in the upper esophagus. GI on consult and plan is for the patient undergo an EGD. Patient had an EGD on December 14 that showed benign-appearing esophageal stenosis that was dilated. Grade a reflux esophagitis with no bleeding. Medium size hiatal hernia. Chronic gastritis that was biopsied. Gastric biopsy showed chronic gastritis. Esophageal biopsy showed mild inflammation at the GE junction. EGD on 01/02 showed grade B reflux esophagitis with no bleeding, moderate Schatzki ring, no lesions in the stomach and no lesions in the first part of the duodenum. Gastritis/esophagitis Resume PPI EGD on 01/02 showed grade B reflux esophagitis with no bleeding, moderate Schatzki ring, no lesions in the stomach and no lesions in the first part of the duodenum. Acute COPD exacerbation Continue with bronchodilators and methylprednisolone. Changed over to prednisone, patient will be discharged with a prednisone taper. Chronic conditions CAD: Continue with aspirin and statin. Heart failure with reduced ejection fraction: EF of 2024%. Seen by cardiology. Not felt to be in acute CHF exacerbation at this time. Diabetes mellitus type 2:Fair control at this time. Glargine held for now. Sliding scale insulin. VTE prophylaxis with heparin. Disposition: Will plan on discharge possibly on the . Charges/Coding Visit Charges Inpatient E&M: 99934 Subs Hosp L2
[2024-01-05] MEDS: 0.9% Saline Lock 10 ML Syringe IV ×2 (09:22→21:39)
[2024-01-05] MEDS: Furosemide 40 MG Tablet PO (09:24)
--- NOTE | 2024-01-05 10:32 | PCM.PN.INT ---
Assessment & Plan Assessment/Plan (1) Acute respiratory failure with hypoxia and hypercarbia: PLAN: Plan RECOMMENDATIONS: 1. Continue BiPAP therapy with naps and nightly. 2. Supplemental oxygen to maintain saturations at or above 90%. 3. Continue empiric antimicrobials to complete 7 days of therapy. 4. Continue scheduled bronchodilators and steroids. Will transition to prednisone 40 mg daily today. Recommend taper at discharge. 5. Continue appropriate DVT prophylaxis. 6. Continue home Lasix regimen. 7. Encourage incentive spirometer use and mobilize patient as tolerated. 8. Please have the patient follow-up in the pulmonary medicine clinic within 2 weeks of discharge. Will sign off at this time. IMPRESSIONS: 1. Acute respiratory failure with hypoxemia and hypercapnia The patient was recently hospitalized under similar circumstances, with clinical concern for underlying decompensated heart failure and possible COPD in a state of exacerbation, most likely secondary to aspiration. While the patient does have an extensive tobacco abuse history, he is not currently followed by a cooperative education director. His chest imaging did certainly raise concern for underlying infection coupled with mediastinal adenopathy of unclear etiology. The adenopathy noted on his chest imaging may be reactive in nature secondary to underlying infection. However, this will need to be followed up on an outpatient pulmonary basis, with repeat chest imaging in 6 to 8 weeks. In the interim, it is certainly reasonable to continue empiric antibiotics to complete 7 days of therapy. In addition, the patient will be continued on scheduled bronchodilators and steroids. Ultimately, the patient has a known history of esophageal stenosis status post dilation, but continues to have difficulty with p.o. intake, with concerns raised by speech therapy for recurrent aspiration. Therefore, GI performed another upper endoscopy which demonstrated a Schatzki ring which was dilated. 2. History of tobacco dependency/coronary artery disease/chronic kidney disease/diabetes mellitus/history of esophageal stenosis Complicates care, management, recovery and prognosis. Continue current supportive care as noted above. This note was generated with [employer] dictation software. It may contain incorrect words, spelling, and punctuation that were not noted in checking the note before signing. Subjective Subjective The patient was seen and examined at the bedside this morning. Events from the last 24 hours have been reviewed. The patient is currently afebrile, hemodynamically stable and maintaining appropriate oxygen saturations on 5 L/min via nasal cannula. The patient remains on appropriate antimicrobials, bronchodilators and steroids. No overnight issues were reported. Objective Data Objective Data The patient's most recent lab work, culture data and imaging studies have all been personally reviewed. Surface echocardiogram demonstrated a mildly dilated LV with an ejection fraction of 20 to 25% and severe global hypokinesis. COVID, influenza and RSV PCR's were negative. Blood, urine and sputum cultures have not demonstrated any growth to date. Vital Signs: Vital Signs Temp Pulse Resp BP Pulse Ox O2 Del Method O2 Flow Rate 97.5 F L 88 18 112/53 L 92 Nasal Cannula 5 01/05/24 09:20 01/05/24 09:20 01/05/24 09:20 01/05/24 09:20 01/05/24 09:20 01/05/24 09:20 01/05/24 09:20 FiO2 35 01/05/24 01:45 Oxygen Flow Rate (L/min) 5 Oxygen Delivery Method Nasal Cannula Weight: 148 lb 12.992 oz Body Mass Index (BMI) 24.7 Intake & Output: Intake and Output for Last 24 Hours 01/03/24 01/04/24 01/05/24 23:59 23:59 23:59 Intake Total 940.25 / 940.25 1169.75 / 1419.75 1478 / 1478 Output Total 650 / 1150 1725 / 2125 1450 / 1450 Balance 290.25 / -209.75 -555.25 / -705.25 Lab / Micro Data Attestation: I reviewed the patient's lab results. 01/04/24 04:20 01/04/24 04:20 Labs: Laboratory Results - last 24 hr 01/04/24 11:41: POC Glucose 241 H 01/04/24 15:57: POC Glucose 151 H 01/04/24 19:46: Vancomycin Trough 26.9 H 01/04/24 21:22: POC Glucose 164 H 01/05/24 06:05: Vancomycin Trough 23.4 H 01/05/24 06:50: POC Glucose 127 H Micro: Microbiology 01/01/24 21:50 Sputum, Expectorated/Coughed Gram Stain - Final 01/01/24 21:50 Sputum, Expectorated/Coughed Respiratory Culture - Final Mixed normal respiratory benitez. No Streptococcus pneumoniae, beta-hemolytic Streptococcus or Staphylococcus aureus isolated. 12/31/23 13:39 Blood Culture (Wb) - Left Forearm Blood Culture - Preliminary No growth in 48 hours. 12/31/23 17:32 Urine, Clean Catch Legionella Antigen - Final 12/31/23 17:32 Urine, Clean Catch Streptococcus pneumoniae Antigen (M - Final 12/31/23 11:46 Mucosa - Nose SARS-CoV-2, Influenza & RSV (PCR) - Final ABG Data ABG results: ABG 12/31/23 12/31/23 01/01/24 12:01 13:37 04:18 Specimen Type ART ART ART Sample Site R Radial R Brach R Brach pH 7.27 L 7.31 L 7.32 L Bicarbonate Actual 33.5 H 31.9 H 35.7 H Total CO2 36 34 38 Base Excess 7 H 6 H 10 H O2 Saturation 94 L 91 L 95 O2 % 12.0 60.0 45.0 ABG pCO2 72.9 H* 63.1 H 69.8 H* ABG pO2 85 68 L 87 Meliton Test Positive Positive Positive Respiration Rate 12 O2 Delivery Device HFNC airvo BiPAP Vent Mode Not entered Not entered Not entered Tidal Volume 450.0 Crit Call To/Read Back Yes Yes Blood Gas Notified Whom dioni rosario Blood Gas Notified Time 12:03:07 04:20:32 Clinical Comments 60l 60% Radiography Diagnostic Testing: Radiology Impression Chest X-Ray 12/31/23 12:25 IMPRESSION: Ill-defined opacity within the left mid and lower lung may reflect some combination of atelectasis, pneumonia and/or a neoplastic process with a possible effusion. Electronically Signed: Dayna Han MD at 12:54 EDT , Chest CTA 12/31/23 13:21 IMPRESSION: 1. No demonstrated pulmonary embolism or arterial dissection. 2. Prominent interstitial lung markings may suggest an infiltrate/pneumonia pattern. However, lymphangitic carcinoma should be considered. 3. Left lower lobe and left midlung infiltrate. This can be related to pneumonia. However it is worse an underlying new plastic processes of concern. 4. Diffuse mediastinal adenopathy. This is worse. Consider neoplastic process. 5. Small left pleural effusion. Electronically Signed: Jack Rolle MD at 14:27 EDT , Rhythm Strip Rhythm Strip: Sinus Rhythm Rate: 80 Physical Exam Const alert and no apparent distress General Appearance: cooperative HEENT normocephalic and head/scalp atraumatic Eyes EOMs intact bilaterally and conjunctivae normal Neck supple General: trachea midline Chest inspection of chest normal Resp Auscultation: diminished lung sounds; Negative for rales, rhonchi or wheezes Cardio regular rate and regular rhythm GI normal to inspection, nondistended, normoactive bowel sounds Extremity General Extremity: edema bilateral lower extremity Skin no rashes or lesions noted Neuro CN's II-XII intact bilaterally, moves all extremities and no focal motor deficits Psych Mood & Affect: flat affect Charges/Coding Visit Charges Inpatient E&M: 38545 Subs Hosp L2
[2024-01-05] MEDS: Ipratropium/Albuterol Sulfate 3 ML AMPUL.NEB INHALATION ×3 (11:45→20:20)
[2024-01-05 12:04] LABS: Bedside Glucose 146 mg/dL (74-106)
[2024-01-05] MEDS: Insulin Lispro 100 UNIT/ML INSULN.PEN SC ×2 (16:37→20:26)
[2024-01-05 17:00] LABS: Bedside Glucose 167 mg/dL (74-106)
[2024-01-05] MEDS: Glucerna Shake 120 ML LIQUID PO (20:37)
[2024-01-05 23:07] LABS: Bedside Glucose 168 mg/dL (74-106)
[2024-01-06] VITALS (10 sets, daily range): BP systolic 106–121; BP diastolic 51–73; PULSE 82–96; RESP 18–24; TEMP 36.2–36.8; O2SAT 83–97; BMI 24.7
[2024-01-06] MEDS: Piperacil/Tazobactam 3.375 GM in 0.9% Normal Saline (50mL MB+) 50 ML IV ×3 (05:30→21:58)
[2024-01-06] MEDS: Heparin Injection (Vial) 5,000 UNIT/ML VIAL 5000 UNIT SC ×3 (05:31→21:33)
[2024-01-06 06:48] LABS: Vancomycin, Random Level 18.4 ug/mL (0.0-15.0)
[2024-01-06 06:51] LABS: Bedside Glucose 141 mg/dL (74-106)
--- NOTE | 2024-01-06 06:51 | PCM.RX.CS ---
Consult Antibiotic Management Pharmacy has been consulted to manage selected antibiotic: Vancomycin Type of Intervention Type of Consult: Follow-up Suspected Infection Suspected Infection: Pneumonia Labs Labs: Sodium 139 mmol/L (136-145) 01/04/24 04:20 Potassium 3.8 mmol/L (3.5-5.1) 01/04/24 04:20 Chloride 102 mmol/L (98-107) 01/04/24 04:20 Carbon Dioxide 31.0 mmol/L (21.0-32.0) 01/04/24 04:20 Anion Gap 6 (5-15) 01/04/24 04:20 BUN 56 mg/dL (7-18) H 01/04/24 04:20 Creatinine 1.97 mg/dL (0.70-1.30) H 01/04/24 04:20 Est GFR (MDRD) Af Amer 43 mL/min (>60) L 01/04/24 04:20 Est GFR (MDRD) Non-Af 35 mL/min (>60) L 01/04/24 04:20 BUN/Creatinine Ratio 28.4 RATIO (10-20) H 01/04/24 04:20 Glucose 111 mg/dL (74-106) H 01/04/24 04:20 Vancomycin Trough 23.4 ug/mL (5.0-15.0) H 01/05/24 06:05 Random Vancomycin 18.4 ug/mL (0.0-15.0) H 01/06/24 05:40 Microbiology Microbiology: Microbiology 12/31/23 13:39 Blood Culture (Wb) - Left Forearm Blood Culture - Final No growth in 5 days. 01/01/24 21:50 Sputum, Expectorated/Coughed Gram Stain - Final 01/01/24 21:50 Sputum, Expectorated/Coughed Respiratory Culture - Final Mixed normal respiratory benitez. No Streptococcus pneumoniae, beta-hemolytic Streptococcus or Staphylococcus aureus isolated. 12/31/23 17:32 Urine, Clean Catch Legionella Antigen - Final 12/31/23 17:32 Urine, Clean Catch Streptococcus pneumoniae Antigen (M - Final 12/31/23 11:46 Mucosa - Nose SARS-CoV-2, Influenza & RSV (PCR) - Final Dosing Weight Weight used for dosin.2 kg Estimated Creatinine Clearance Estimated Creatinine Clearance: 27 Goal Trough Goal Trough: 15-20 mcg/mL Pharmacy Plan for Drug Dosing Pharmacy Plan for Drug Dosing: Random vancomycin level drawn 01/06/24 was in the therapeutic target range at 18.4. This has been approximately 57 hours since the last dose, so we will continue to hold dosing. Another random vanco level will be drawn 01/07/24 in the a.m. to determine if another dose is warranted to keep him therapeutic. Pharmacy Service will continue to monitor and adjust dosing as required. Follow-Up Labs Follow-Up Labs: Trough: Vancomycin (random) Date/Time Labs Ordered Labs to be done on [date and time ordered]: 01/07/24 @0600 random
[2024-01-06] MEDS: Ipratropium/Albuterol Sulfate 3 ML AMPUL.NEB INHALATION ×3 (07:13→19:22)
[2024-01-06] MEDS: Acetaminophen 325 MG Tablet 650 MG PO ×2 (08:59→18:59)
[2024-01-06] MEDS: oxyCODONE 5 MG Tablet PO ×4 (08:59→23:02)
[2024-01-06] MEDS: predniSONE 20 MG Tablet 40 MG PO (09:00)
[2024-01-06] MEDS: Menthol/Lanolin/Calamine/Znox 113 GM Tube 1 APPLIC TOPICAL ×2 (09:00→21:19)
[2024-01-06] MEDS: Furosemide 40 MG Tablet PO (09:01)
[2024-01-06] MEDS: Glucerna Shake 120 ML LIQUID PO ×2 (09:07→21:23)
--- NOTE | 2024-01-06 10:04 | PN.HOSP_ITS ---
Reason for Visit Reason for Visit: Diagnoses Essential (primary) hypertension (12/31/23) Atherosclerotic heart disease of [place] coronary artery without angina pectoris (12/31/23) Unspecified systolic (congestive) heart failure (12/31/23) Acute respiratory failure with hypoxia (12/31/23) Acute respiratory failure with hypercapnia (12/31/23) Chronic kidney disease, unspecified (12/31/23) Dysphagia, unspecified (12/31/23) Subjective Subjective Still with the right hand weakness. States that it developed while he was here. States that it was not present prior to arrival. Anxious to go home. Objective Data Objective Data Vital Signs: Vital Signs Temp Pulse Resp BP Pulse Ox O2 Del Method O2 Flow Rate 36.4 C L 94 18 106/51 L 95 Nasal Cannula 3 01/06/24 08:56 01/06/24 08:56 01/06/24 08:56 01/06/24 08:56 01/06/24 08:56 01/06/24 08:56 01/06/24 08:56 FiO2 35 01/05/24 01:45 Oxygen Flow Rate (L/min) 3 Oxygen Delivery Method Nasal Cannula Weight: 67.2 kg Body Mass Index (BMI) 24.7 Intake & Output: Intake and Output for Last 24 Hours 01/04/24 01/05/24 01/06/24 23:59 23:59 23:59 Intake Total 1169.75 / 1419.75 2118 / 2318 650 / 650 Output Total 1725 / 2125 2050 / 2450 900 / 900 Balance -555.25 / -705.25 68 / -132 -250 / -250 Lab / Micro Data 01/04/24 04:20 01/04/24 04:20 Labs: Laboratory Results - last 24 hr 01/05/24 11:38: POC Glucose 146 H 01/05/24 16:36: POC Glucose 167 H 01/05/24 20:25: POC Glucose 168 H 01/06/24 05:35: POC Glucose 141 H 01/06/24 05:40: Random Vancomycin 18.4 H Micro: Microbiology 12/31/23 13:39 Blood Culture (Wb) - Left Forearm Blood Culture - Final No growth in 5 days. 01/01/24 21:50 Sputum, Expectorated/Coughed Gram Stain - Final 01/01/24 21:50 Sputum, Expectorated/Coughed Respiratory Culture - Final Mixed normal respiratory benitez. No Streptococcus pneumoniae, beta-hemolytic Streptococcus or Staphylococcus aureus isolated. 12/31/23 17:32 Urine, Clean Catch Legionella Antigen - Final 12/31/23 17:32 Urine, Clean Catch Streptococcus pneumoniae Antigen (M - Final 12/31/23 11:46 Mucosa - Nose SARS-CoV-2, Influenza & RSV (PCR) - Final Rhythm Strip Rhythm Strip: Sinus Rhythm Rate: 80 Physical Exam Const alert and no apparent distress Resp normal respiratory effort, no retractions, no use of accessory muscles and clear to auscultation bilaterally Cardio regular rate, regular rhythm, S1 normal heart sound and S2 normal heart sound GI normal to inspection, nondistended, normoactive bowel sounds, soft to palpation, non-tender and non-distended Neuro Neuro Narrative: Difficulty completely opening his right hand. Strength in his right upper arm otherwise is intact. Motor strength in the lower extremity is 5 out of 5. No right facial droop. Sensorium / Orientation: awake and alert Assessment & Plan Assessment/Plan (1) Acute respiratory failure with hypoxia and hypercarbia: PLAN: Plan Acute hypoxic and hypercapnic respiratory failure * Secondary to COPD exacerbation, pneumonia. * BiPAP with naps and nightly. * Patient not felt to be in CHF exacerbation by cardiology, who has since signed off. * restarted on furosemide Aspiration pneumonia * Continue with antibiotics with pip-tazo and vancomycin * Patient had a speech therapy eval that showed thin liquids with retention and midesophagus with retrograde flow in the upper esophagus. * GI on consult and plan is for the patient undergo an EGD. Patient had an EGD on December 14 that showed benign-appearing esophageal stenosis that was dilated. Grade a reflux esophagitis with no bleeding. Medium size hiatal hernia. Chronic gastritis that was biopsied. Gastric biopsy showed chronic gastritis. Esophageal biopsy showed mild inflammation at the GE junction. EGD on 01/02 showed grade B reflux esophagitis with no bleeding, moderate Schatzki ring, no lesions in the stomach and no lesions in the first part of the duodenum. Gastritis/esophagitis * Resume PPI * EGD on 01/02 showed grade B reflux esophagitis with no bleeding, moderate Schatzki ring, no lesions in the stomach and no lesions in the first part of the duodenum. Acute COPD exacerbation * Continue with bronchodilators and methylprednisolone. * Changed over to prednisone, patient will be discharged with a prednisone taper. Right hand palsy * Per the patient, it is developed since he has been here. Never had that before. He denies being on ground on his arm for any extended period of time. He has no other deficits that I can appreciate. He is stating that it is getting better since he has been here. * Check a head CT and neck CT Chronic conditions * CAD: Continue with aspirin and statin. * Heart failure with reduced ejection fraction: EF of 2024%. Seen by cardiology. Not felt to be in acute CHF exacerbation at this time. * Diabetes mellitus type 2:Fair control at this time. Glargine held for now. Sliding scale insulin. VTE prophylaxis with heparin. Disposition: To be determined. Home with home care when ready. Charges/Coding Visit Charges Inpatient E&M: 91358 Subs Hosp L2
[2024-01-06] MEDS: Insulin Lispro 100 UNIT/ML INSULN.PEN SC ×3 (11:20→21:29)
[2024-01-06] MEDS: Pantoprazole Sodium 40 MG in 0.9% Normal Saline (100mL MB+) 100 ML 330 MG IV ×2 (11:20→21:13)
[2024-01-06 11:55] LABS: Bedside Glucose 246 mg/dL (74-106)
--- NOTE | 2024-01-06 12:05 | CT_ITS ---
STUDY: CT CERVICAL SPINE WITHOUT CONTRAST REASON FOR EXAM: Male, 78 years old. right hand palsy RADIATION DOSAGE (If Supplied By Facility): CTDIvol = ( 17.95 ) mGy, DLP = ( 398.52 ) mGycm TECHNIQUE: High resolution transaxial imaging was performed without contrast material. Sagittal and coronal images were reconstructed. Individualized dose optimization techniques were used for this CT. COMPARISON: None FINDINGS: Normal craniovertebral junction. Normal anterior atlantoaxial articulation. Normal odontoid process. Normal cervical lordosis. Normal vertebral bodies and posterior osseous elements. 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 C2-3: Normal endplates. Normal disc height and morphology. Narrowed central canal. Uncovertebral spurring slightly narrowing the right intervertebral neural foramen. C3-4: Normal endplates. Normal disc height and morphology. Slightly narrowed central canal. Normal intervertebral neuroforamina. C4-5: Normal endplates. Normal disc height and morphology. Normal central canal and intervertebral neuroforamina. C5-6: Normal endplates. Normal disc height with slight posterior annular bulge. Normal central canal. Uncovertebral spurring slightly narrowing the intervertebral neuroforamina. C6-7: Normal endplates. Normal disc height with slight posterior annular bulge. Normal central canal and intervertebral neuroforamina. C7-T1: Normal endplates. Normal disc height and morphology. Normal central canal and intervertebral neuroforamina. Normal visualized soft tissue structures. Left pleural effusion. CT/Spine Cervical without Contras IMPRESSION: Degenerative changes and discogenic disease of the cervical spine. Left pleural effusion Electronically Signed: Abdiel Arias DO at 18:33 EDT Reading Location ID and State: [facility] / [place] Tel [phone], Service support ,
--- NOTE | 2024-01-06 12:05 | CT_ITS ---
STUDY: CT BRAIN WITHOUT CONTRAST REASON FOR EXAM: Male, 78 years old. right hand palsy RADIATION DOSAGE (If Supplied By Facility): CTDIvol = ( 44.99 ) mGy, DLP = ( 897.35 ) mGycm TECHNIQUE: Transaxial CT imaging of the brain was performed without administration of intravenous contrast material. Individualized dose optimization techniques were used for this CT. COMPARISON: No relevant priors. FINDINGS: Normal soft tissue structures. Normal calvarium. Normal size ventricles and extra-axial spaces for the patient''s age. 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 Bilateral white matter microangiopathic ischemic changes. Normal basal ganglia and thalami. Normal brainstem. Normal cerebellum. There is no intracranial hemorrhage. There are no findings of an acute ischemic infarction. Normal visualized paranasal sinuses. CT/Brain/Head without Contrast IMPRESSION: Age-related and chronic changes of the brain. Electronically Signed: Abdiel Arias DO at 16:09 EDT ,
[2024-01-06 21:49] LABS: Bedside Glucose 172 mg/dL (74-106)
[2024-01-06 21:57] LABS: Bedside Glucose 258 mg/dL (74-106)
[2024-01-06] MEDS: 0.9% Saline Lock 10 ML Syringe IV (21:59)
[2024-01-07] VITALS (8 sets, daily range): BP systolic 109–134; BP diastolic 57–69; PULSE 90–94; RESP 16–20; TEMP 36.3–36.4; O2SAT 86–98; BMI 24.7
[2024-01-07] MEDS: Acetaminophen 325 MG Tablet 650 MG PO ×2 (06:18→14:01)
[2024-01-07] MEDS: oxyCODONE 5 MG Tablet PO ×2 (06:18→10:19)
[2024-01-07 06:19] LABS: Vancomycin, Random Level 15.2 ug/mL (0.0-15.0)
[2024-01-07] MEDS: Piperacil/Tazobactam 3.375 GM in 0.9% Normal Saline (50mL MB+) 50 ML IV (06:19)
[2024-01-07] MEDS: Heparin Injection (Vial) 5,000 UNIT/ML VIAL 5000 UNIT SC ×2 (06:25→14:03)
--- NOTE | 2024-01-07 06:31 | PCM.RX.CS ---
Consult Antibiotic Management Pharmacy has been consulted to manage selected antibiotic: Vancomycin Type of Intervention Type of Consult: Follow-up Suspected Infection Suspected Infection: Pneumonia Labs Labs: Sodium 139 mmol/L (136-145) 01/04/24 04:20 Potassium 3.8 mmol/L (3.5-5.1) 01/04/24 04:20 Chloride 102 mmol/L (98-107) 01/04/24 04:20 Carbon Dioxide 31.0 mmol/L (21.0-32.0) 01/04/24 04:20 Anion Gap 6 (5-15) 01/04/24 04:20 BUN 56 mg/dL (7-18) H 01/04/24 04:20 Creatinine 1.97 mg/dL (0.70-1.30) H 01/04/24 04:20 Est GFR (MDRD) Af Amer 43 mL/min (>60) L 01/04/24 04:20 Est GFR (MDRD) Non-Af 35 mL/min (>60) L 01/04/24 04:20 BUN/Creatinine Ratio 28.4 RATIO (10-20) H 01/04/24 04:20 Glucose 111 mg/dL (74-106) H 01/04/24 04:20 Vancomycin Trough 23.4 ug/mL (5.0-15.0) H 01/05/24 06:05 Random Vancomycin 15.2 ug/mL (0.0-15.0) H 01/07/24 05:35 Microbiology Microbiology: Microbiology 12/31/23 13:39 Blood Culture (Wb) - Left Forearm Blood Culture - Final No growth in 5 days. 01/01/24 21:50 Sputum, Expectorated/Coughed Gram Stain - Final 01/01/24 21:50 Sputum, Expectorated/Coughed Respiratory Culture - Final Mixed normal respiratory benitez. No Streptococcus pneumoniae, beta-hemolytic Streptococcus or Staphylococcus aureus isolated. 12/31/23 17:32 Urine, Clean Catch Legionella Antigen - Final 12/31/23 17:32 Urine, Clean Catch Streptococcus pneumoniae Antigen (M - Final 12/31/23 11:46 Mucosa - Nose SARS-CoV-2, Influenza & RSV (PCR) - Final Dosing Weight Weight used for dosin kg Estimated Creatinine Clearance Estimated Creatinine Clearance: 27 Goal Trough Goal Trough: 15-20 mcg/mL Pharmacy Plan for Drug Dosing Pharmacy Plan for Drug Dosing: Random vancomycin level drawn 01/07/24 @0535 was 15.2, which is in the target range of 15-20. This was effectively an 81hr level, so further dosing will be conservative. A 500mg x1 dose will be given 01/07/24, and a random level will be drawn in two days. Pharmacy Service will continue to monitor and adjust dosing as required. Follow-Up Labs Follow-Up Labs: Trough: Vancomycin (random) Date/Time Labs Ordered Labs to be done on [date and time ordered]: 01/09/24 @0600 random
[2024-01-07 06:54] LABS: Bedside Glucose 130 mg/dL (74-106)
[2024-01-07] MEDS: Ipratropium/Albuterol Sulfate 3 ML AMPUL.NEB INHALATION (07:10)
--- NOTE | 2024-01-07 09:35 | PN.HOSP_ITS ---
Reason for Visit Reason for Visit: Diagnoses Essential (primary) hypertension (12/31/23) Atherosclerotic heart disease of [place] coronary artery without angina pectoris (12/31/23) Unspecified systolic (congestive) heart failure (12/31/23) Acute respiratory failure with hypoxia (12/31/23) Acute respiratory failure with hypercapnia (12/31/23) Chronic kidney disease, unspecified (12/31/23) Dysphagia, unspecified (12/31/23) Subjective Subjective Feels better. Anxious to go home. Still with right hand weakness but overall improving. Objective Data Objective Data Vital Signs: Vital Signs Temp Pulse Resp BP Pulse Ox O2 Del Method O2 Flow Rate 36.4 C L 93 19 H 122/67 H 96 High Flow 5 01/07/24 06:34 01/07/24 07:10 01/07/24 07:10 01/07/24 06:34 01/07/24 07:10 01/07/24 08:18 01/07/24 08:18 FiO2 35 01/05/24 01:45 Oxygen Flow Rate (L/min) 5 Oxygen Delivery Method High Flow Weight: 67.4 kg Body Mass Index (BMI) 24.7 Intake & Output: Intake and Output for Last 24 Hours 01/05/24 01/06/24 01/07/24 23:59 23:59 23:59 Intake Total 2118 / 2318 1850 / 1850 250 / 250 Output Total 2050 / 2450 2049 / 2049 200 / 200 Balance 68 / -132 -200 / -200 50 / 50 Lab / Micro Data 01/04/24 04:20 01/07/24 05:35 Labs: Laboratory Results - last 24 hr 01/06/24 11:18: POC Glucose 246 H 01/06/24 18:21: POC Glucose 172 H 01/06/24 21:27: POC Glucose 258 H 01/07/24 05:35: Random Vancomycin 15.2 H 01/07/24 06:23: POC Glucose 130 H Micro: Microbiology 12/31/23 13:39 Blood Culture (Wb) - Left Forearm Blood Culture - Final No growth in 5 days. 01/01/24 21:50 Sputum, Expectorated/Coughed Gram Stain - Final 01/01/24 21:50 Sputum, Expectorated/Coughed Respiratory Culture - Final Mixed normal respiratory benitez. No Streptococcus pneumoniae, beta-hemolytic Streptococcus or Staphylococcus aureus isolated. 12/31/23 17:32 Urine, Clean Catch Legionella Antigen - Final 12/31/23 17:32 Urine, Clean Catch Streptococcus pneumoniae Antigen (M - Final 12/31/23 11:46 Mucosa - Nose SARS-CoV-2, Influenza & RSV (PCR) - Final Radiography Diagnostic Testing: Radiology Impression Brain CT 01/06/24 12:05 IMPRESSION: Age-related and chronic changes of the brain. Electronically Signed: Abdiel Arias DO at 16:09 EDT , Cervical Spine CT 01/06/24 12:05 IMPRESSION: Degenerative changes and discogenic disease of the cervical spine. Left pleural effusion Electronically Signed: Abdiel Arias DO at 18:33 EDT , Rhythm Strip Rhythm Strip: Sinus Rhythm Rate: 80 Physical Exam Const alert and no apparent distress HEENT head/scalp atraumatic and moist oral mucous membranes Resp normal respiratory effort and no retractions Resp Narrative: Coarse breath sounds bilaterally Cardio regular rate, regular rhythm, S1 normal heart sound and S2 normal heart sound Assessment & Plan Assessment/Plan (1) Acute respiratory failure with hypoxia and hypercarbia: PLAN: Plan Acute hypoxic and hypercapnic respiratory failure * Secondary to COPD exacerbation, pneumonia. * BiPAP with naps and nightly. * Patient not felt to be in CHF exacerbation by cardiology, who has since signed off. * restarted on furosemide. * Patient had a home oxygen valuation today and patient required 3 L at rest and 4 L with ambulation. Oxygen testing reviewed and patient is ambulatory in home and in the community and requires home oxygen with portability. Aspiration pneumonia * Continue with antibiotics with pip-tazo and vancomycin * Patient had a speech therapy eval that showed thin liquids with retention and midesophagus with retrograde flow in the upper esophagus. * GI on consult and plan is for the patient undergo an EGD. Patient had an EGD on December 14 that showed benign-appearing esophageal stenosis that was dilated. Grade a reflux esophagitis with no bleeding. Medium size hiatal hernia. Chronic gastritis that was biopsied. Gastric biopsy showed chronic gastritis. Esophageal biopsy showed mild inflammation at the GE junction. EGD on 01/02 showed grade B reflux esophagitis with no bleeding, moderate Schatzki ring, no lesions in the stomach and no lesions in the first part of the duodenum * Sputum culture showed mixed noraml respiratory benitez. Strep and legionella antigens negative. Gastritis/esophagitis * Resume PPI * EGD on 01/02 showed grade B reflux esophagitis with no bleeding, moderate Schatzki ring, no lesions in the stomach and no lesions in the first part of the duodenum. Acute COPD exacerbation * Continue with bronchodilators and methylprednisolone. * Changed over to prednisone, patient will be discharged with a prednisone taper. Right hand palsy * Per the patient, it is developed since he has been here. Never had that before. He denies being on ground on his arm for any extended period of time. He has no other deficits that I can appreciate. He is stating that it is getting better since he has been here. * CT head and neck showed no acute process. Discussed with the patient that this may be just due to a palsy from laying on his arm for period of time but it is unclear unclear if patient had a stroke. I advised getting an MRI Lyse here to evaluate that. He is declining saying that his hand is getting better. He understands that this could very well be a stroke and understands my recommendations but would prefer to do that as an outpatient. I told him that he would need to follow-up through his primary care doctor to see about getting an MRI which would take at least couple weeks to get that arranged. He expressed understanding. Chronic conditions * CAD * Heart failure with reduced ejection fraction: EF of 202%. Seen by cardiology. Not felt to be in acute CHF exacerbation at this time. * Diabetes mellitus type 2:Fair control at this time. Glargine held for now. Sliding scale insulin. VTE prophylaxis with heparin. Disposition: To be determined. Home with home care when ready.
[2024-01-07 10:20] LABS: Anion Gap 8 (5-15); BUN 38 mg/dL (7-18); BUN/Creat Ratio 21.6 RATIO (10-20); Calcium,Total 9.3 mg/dL (8.5-10.1); Chloride 103 mmol/L (98-107); Creatinine, Serum 1.76 mg/dL (0.70-1.30); EST Glomerular Filtration Rate 40 mL/min (>60); Est Glom Filt Rate - Afr Amer 49 mL/min (>60); Glucose 110 mg/dL (74-106); Potassium 3.3 mmol/L (3.5-5.1); Sodium Level 141 mmol/L (136-145)
[2024-01-07] MEDS: Menthol/Lanolin/Calamine/Znox 113 GM Tube 1 APPLIC TOPICAL (10:20)
[2024-01-07] MEDS: Furosemide 40 MG Tablet PO (10:20)
[2024-01-07] MEDS: predniSONE 20 MG Tablet 40 MG PO (10:20)
[2024-01-07] MEDS: Pantoprazole Sodium 40 MG in 0.9% Normal Saline (100mL MB+) 100 ML 330 MG IV (10:21)
[2024-01-07] MEDS: Vancomycin IV 500 MG/100 ML BAG 100 MG IV (11:22)
[2024-01-07] MEDS: Insulin Lispro 100 UNIT/ML INSULN.PEN SC (11:22)
[2024-01-07 11:44] LABS: Bedside Glucose 253 mg/dL (74-106)
--- NOTE | 2024-01-07 12:34 | PCM.DC.SUM ---
Providers Date of Admission: 12/31/23 Primary Care Physician: Dr. Mich Rosales MD Consultations 12/31/23 15:36 Consult: Supervisor Shop / Pulmonary Medicine Routine Consulting Provider: Intensivists/Pulmonary Med Reason for Consult: acute on chronic hypoxic and hypercapnic respiratory failure EMERGENT Consult: No Notified: Yes Date Notified: 12/31/23 Time Notified: 15:56 Method of Notification: Text 12/31/23 19:51 Consult: Cardiology Routine Consulting Provider: [facility] Reason for Consult: Heart failure EMERGENT Consult: No Notified: Yes Date Notified: 12/31/23 Time Notified: 19:51 Method of Notification: Text 01/02/24 11:57 Consult: Gastroenterology Routine Consulting Provider: [facility] Reason for Consult: esophogeal stenosis and aspiration EMERGENT Consult: No Notified: Yes Date Notified: 01/02/24 Time Notified: 11:57 Method of Notification: Text Reason For Visit: HYPOXIA, ACUTE HYPERCAPNIC RESPIRATORY FAILURE Diagnosis Discharge Diagnosis (1) Acute respiratory failure with hypoxia and hypercarbia: Status: Acute Code(s): J96.01 - Acute respiratory failure with hypoxia; J96.02 - Acute respiratory failure with hypercapnia Plan Acute hypoxic and hypercapnic respiratory failure Secondary to COPD exacerbation, pneumonia. BiPAP with naps and nightly. Patient not felt to be in CHF exacerbation by cardiology, who has since signed off. restarted on furosemide. Patient had a home oxygen valuation today and patient required 3 L at rest and 4 L with ambulation. Oxygen testing reviewed and patient is ambulatory in home and in the community and requires home oxygen with portability. Aspiration pneumonia Continue with antibiotics with pip-tazo and vancomycin Patient had a speech therapy eval that showed thin liquids with retention and midesophagus with retrograde flow in the upper esophagus. GI on consult and plan is for the patient undergo an EGD. Patient had an EGD on December 14 that showed benign-appearing esophageal stenosis that was dilated. Grade a reflux esophagitis with no bleeding. Medium size hiatal hernia. Chronic gastritis that was biopsied. Gastric biopsy showed chronic gastritis. Esophageal biopsy showed mild inflammation at the GE junction. EGD on 01/02 showed grade B reflux esophagitis with no bleeding, moderate Schatzki ring, no lesions in the stomach and no lesions in the first part of the duodenum Sputum culture showed mixed noraml respiratory benitez. Strep and legionella antigens negative. Gastritis/esophagitis Resume PPI EGD on 01/02 showed grade B reflux esophagitis with no bleeding, moderate Schatzki ring, no lesions in the stomach and no lesions in the first part of the duodenum. Acute COPD exacerbation Continue with bronchodilators and methylprednisolone. Changed over to prednisone, patient will be discharged with a prednisone taper. Right hand palsy Per the patient, it is developed since he has been here. Never had that before. He denies being on ground on his arm for any extended period of time. He has no other deficits that I can appreciate. He is stating that it is getting better since he has been here. CT head and neck showed no acute process. Discussed with the patient that this may be just due to a palsy from laying on his arm for period of time but it is unclear unclear if patient had a stroke. I advised getting an MRI Lyse here to evaluate that. He is declining saying that his hand is getting better. He understands that this could very well be a stroke and understands my recommendations but would prefer to do that as an outpatient. I told him that he would need to follow-up through his primary care doctor to see about getting an MRI which would take at least couple weeks to get that arranged. He expressed understanding. Chronic conditions CAD Heart failure with reduced ejection fraction: EF of 5%. Seen by cardiology. Not felt to be in acute CHF exacerbation at this time. Diabetes mellitus type 2:Fair control at this time. Glargine held for now. Sliding scale insulin. VTE prophylaxis with heparin. Disposition: To be determined. Home with home care when ready. Medications at Discharge Home Medications gabapentin 400 mg capsule 400 mg PO TID NERVE PAIN 08/20/18 glipizide 5 mg tablet 5 mg PO .BEFORE MEALS DM 08/20/18 sertraline 50 mg tablet 100 mg PO DAILY DEPRESSION 08/20/18 carvedilol 3.125 mg tablet 3.125 mg PO BID blood pressure 08/21/18 clopidogrel 75 mg tablet 75 mg PO DAILY anti platelet 08/21/18 albuterol 90 mcg/actuation aerosol inhaler 90 mcg inhalation .4X A DAY PRN SOB 12/30/22 cholecalciferol (vitamin D3) 25 mcg (1,000 unit) capsule 75 mcg PO DAILY vitamin 12/30/22 cyanocobalamin (vitamin B-12) 1,000 mcg capsule 1,000 mcg PO DAILY vitamin 12/30/22 hydrocodone-acetaminophen 5-325mg 5mg-325mg 1 tab PO TID pain 12/30/22 mometasone 200 mcg/actuation HFA aerosol inhaler (Asmanex HFA) 2 puff inhalation BID breathing 12/30/22 rosuvastatin 40 mg tablet (Crestor) 40 mg PO QHS cholesterol 12/30/22 tiotropium 2.5 mcg-olodaterol 2.5 mcg/actuation mist for inhalation (Stiolto Respimat) 2 inh inhalation DAILY breathing 12/30/22 aspirin 81 mg tablet,delayed release (Adult Aspirin Regimen) 81 mg PO DAILY heart meera 12/05/23 furosemide 40 mg tablet 40 mg PO DAILY diuretic 12/05/23 furosemide 20 mg tablet 20 mg PO .evening chf 1 month #30 tabs 12/15/23 insulin glargine 100 unit/mL subcutaneous solution 18 unit (0.18 mL) subcut QHS bg 30 days #0 mL 12/15/23 insulin lispro 100 unit/mL subcutaneous pen (Humalog KwikPen (U-100) Insulin) 5 unit (0.05 mL) subcut TIDAC bg 1 month #15 mL 12/15/23 insulin lispro 100 unit/mL subcutaneous pen (Humalog KwikPen (U-100) Insulin) See Protocol subcut ACHS bg #0 mL 12/15/23 pantoprazole 40 mg tablet,delayed release (Protonix) 40 mg PO BID stomach 30 days #60 tabs 12/15/23 prednisone 20 mg tablet 40 mg (2 x 20 mg) PO BREAKFAST #6 tabs 01/07/24 Hospital Course Operations None Procedures None Summary of Care Provided Minutes Spent on Discharge: 35 Hospital Course: Patient presented with shortness of breath and was diagnosed with pneumonia. Patient received pip-tazo and vancomycin for total of 7 days. Status overall improved. While he was here he did complain of right hand weakness. Patient had difficulty opening his hand but over time it did improve to the point where he could extend more but not fully extend his hands. Did do head CT and CT of the neck showed no acute process. I did recommend an MRI to evaluate further if he had a stroke. He declines that being done at this time. He understands that this could be a stroke but does not wish to proceed with any additional workup while he is inpatient but would prefer to do it as outpatient. I did tell him that the workup as outpatient would likely take longer requiring insurance authorization and so forth. He expressed understanding. Patient was ambulated in the hallway and just required 4 L of oxygen with activity and 3 L at rest. Weight / BMI Weight Weight: 67.4 kg Body Mass Index (BMI) 24.7 ABG / Lab / Microbiology Data 01/04/24 04:20 01/07/24 05:35 Laboratory: Laboratory Results - last 24 hr 01/06/24 18:21: POC Glucose 172 H 01/06/24 21:27: POC Glucose 258 H 01/07/24 05:35: Sodium 141, Potassium 3.3 L, Chloride 103, Carbon Dioxide 30.0, Anion Gap 8, BUN 38 H, Creatinine 1.76 H, Estim Creat Clear Calc 29.90, Est GFR (MDRD) Af Amer 49 L, Est GFR (MDRD) Non-Af 40 L, BUN/Creatinine Ratio 21.6 H, Glucose 110 H, Calcium 9.3, Random Vancomycin 15.2 H 01/07/24 06:23: POC Glucose 130 H 01/07/24 11:20: POC Glucose 253 H Microbiology: Microbiology 12/31/23 13:39 Blood Culture (Wb) - Left Forearm Blood Culture - Final No growth in 5 days. 01/01/24 21:50 Sputum, Expectorated/Coughed Gram Stain - Final 01/01/24 21:50 Sputum, Expectorated/Coughed Respiratory Culture - Final Mixed normal respiratory benitez. No Streptococcus pneumoniae, beta-hemolytic Streptococcus or Staphylococcus aureus isolated. 12/31/23 17:32 Urine, Clean Catch Legionella Antigen - Final 12/31/23 17:32 Urine, Clean Catch Streptococcus pneumoniae Antigen (M - Final 12/31/23 11:46 Mucosa - Nose SARS-CoV-2, Influenza & RSV (PCR) - Final Radiography Diagnostic Testing: Radiology Impression Brain CT 01/06/24 12:05 IMPRESSION: Age-related and chronic changes of the brain. Electronically Signed: Abdiel Arias DO at 16:09 EDT , Cervical Spine CT 01/06/24 12:05 IMPRESSION: Degenerative changes and discogenic disease of the cervical spine. Left pleural effusion Electronically Signed: Abdiel DO Hugo at 18:33 EDT Reading Location ID and State: [facility] / [place] Tel [phone], Service support , D/C Instructions Discharge Diet: Low fat / Low cholesterol Meaningful Use Info Meaningful Use Meaningful Use Diagnoses (Choose all that apply): None applicable Ischemic Stroke Statin Dosing Therapy Reference: STATIN DOSE THERAPY REFERENCE: * Patients > 75 years receive moderate or high dose statin therapy. * Patients 75 years or YOUNGER should receive HIGH intensity statin dose unless contraindicated. You will be required to document reason for non-treatment if statin daily dose does not meet guidelines. HIGH DOSE STATIN THERAPY DAILY Atorvastatin > than or = to 40 mg Rosuvastatin > than or = to 20 mg Amlodipine + Atorvastatin > than or = to 2.5/40 mg Ezetimibe + Simvastatin 10/80 mg Simvastatin 80mg Discharge Plan Admission Admit Date/Time: 12/31/23 13:23 Primary Reason for Your Visit: Pneumonia Attending Provider: Bro Redd Primary Care Provider: Mich Rosales Consulting Providers: Ragini Khan; Christiano Oro; Brittany Saab; Gabe Solano; Rodrigo Maynard; Edwin Dodge; Rojelio Silva; Lokesh Solorio; Estephanie Muniz; Mian Mcclelland; Nitin Howard EDUCATIONAL TECHNOLOGIST; Ragini Baltazar NP; Krysta Rodriguez; Rubina Townsend Instructions Additional Instructions / Restrictions: You presented with pneumonia and have improved with antibiotics. Your antibiotics have been completed since being in the hospital. You developed right hand weakness. It is unclear if that was due to a stroke or some other process such as a nerve entrapment such as laying on your arm for an extended period of time. As we discussed, I recommended an MRI of your brain while you are here but you prefer to do that as outpatient. That will need to be arranged through your primary care doctor to have that performed. If you do experience new weakness or worsening weakness, notify your physician or return to the emergency room Discharge Orders/Prescriptions Prescriptions: New prednisone 20 mg Tablet 40 mg PO BREAKFAST Qty: 6 0RF Continued gabapentin 400 MG capsule 400 mg PO TID sertraline 50 MG tablet 100 mg PO DAILY glipizide 5 MG tablet 5 mg PO .BEFORE MEALS clopidogrel 75 MG tablet 75 mg PO DAILY 0RF carvedilol 3.125 MG tablet 3.125 mg PO BID 0RF Asmanex HFA 200 mcg/actuation HFA aerosol inhaler 2 puff inhalation BID Stiolto Respimat 2.5-2.5 mcg/actuation mist 2 inh inhalation DAILY rosuvastatin [Crestor] 40 mg tablet 40 mg PO QHS albuterol 90 mcg/actuation aerosol 90 mcg inhalation .4X A DAY PRN (Reason: SOB) cyanocobalamin (vitamin B-12) 1,000 mcg capsule 1,000 mcg PO DAILY cholecalciferol (vitamin D3) 25 mcg (1,000 unit) capsule 75 mcg PO DAILY hydrocodone-acetaminophen 5-325 mg tablet 1 tab PO TID Patient Comments: Take 1 tablet by mouth every 8 hours as needed for pain. furosemide 40 mg tablet 40 mg PO DAILY aspirin [Adult Aspirin Regimen] 81 mg tablet,delayed release (DR/EC) 81 mg PO DAILY insulin lispro [Humalog KwikPen Insulin] 100 unit/mL Insulin Pen 5 unit subcut TIDAC 30 Days Qty: 15 3RF Rx Instructions: Hold if glucose less than 130 mg/dl insulin lispro [Humalog KwikPen Insulin] 100 unit/mL Insulin Pen See Protocol subcut ACHS Qty: 0 0RF Protocol: 3. Sliding Scale Insulin Med Dosing Condition: 150-189 mg/dl = 1 unit Condition: 190-229 mg/dl = 2 units Condition: 230-269 mg/dl = 3 units Condition: 270-309 mg/dl = 4 units Condition: 310-349 mg/dl = 5 units Condition: 350-399 mg/dl = 6 units Condition: 400-449 mg/dl = 7 units Condition: Greater than 449 call physician Protocol Text: Suggested for: - Patients on Total Daily Insulin Dose of 37-55 units - Obese, infected, or steroid patients MEDIUM DOSING ALGORITHIM insulin glargine 100 unit/mL solution 18 unit subcut QHS 30 Days Qty: 0 0RF Rx Instructions: Hold if glucose less than 130 mg/dl furosemide 20 mg tablet 20 mg PO .evening 30 Days Qty: 30 2RF Rx Instructions: Take extra 20 mg dose at 5 PM for increased leg swelling or weight gain 5 pounds in 1 week. pantoprazole [Protonix] 40 mg tablet,delayed release (DR/EC) 40 mg PO BID 30 Days Qty: 60 2RF Referrals / Follow Up: [facility] [Provider Group] - 01/16/24 11:00 am Mich Rosales MD [Primary Care Provider] - Within 2 Weeks Disposition Disposition (needs filled in before D/C Order can be placed): Home Health Service Charges/Coding Visit Charges Inpatient E&M: 64475 Disch Hosp >30min
--- NOTE | 2024-01-07 12:58 | NURSING ---
I spoke with Melissa with [facility] to let her know that pt will be d/c today and I faxed over the d/c summary.
[2024-01-07] MEDS: Potassium Chloride Oral Tablet 20 MEQ 40 MEQ PO (14:01)
== END 2024-01-07 14:44 | disposition home health service (06) | DRG 189 ==
LOC: ED 13:05 → ICU 14:24 → PCU 01-05 06:36
PROVIDERS: Anesthesiology; Internal Medicine; Internal Medicine Critical Care Medicine; Internal Medicine Gastroenterology; Physician Assistant; Admitting Provider Student in an Organized Health Care Education/Training Program; Emergency Provider Emergency Medicine; PCP Family Medicine
PROC: 0DJ08ZZ Inspection of Upper Intestinal Tract, Via Natural or Artificial Opening Endoscopic (ICD-10-PCS; CPT 43235; principal; 2024-01-03 11:00)
DX: J96.01 Acute respiratory failure with hypoxia (principal); J69.0 Pneumonitis due to inhalation of food and vomit; J44.0 Chronic obstructive pulmonary disease with (acute) lower respiratory infection; I13.0 Hypertensive heart and chronic kidney disease with heart failure and stage 1 through stage 4 chronic kidney disease, or unspecified chronic kidney disease; J44.1 Chronic obstructive pulmonary disease with (acute) exacerbation; I50.22 Chronic systolic (congestive) heart failure; N18.4 Chronic kidney disease, stage 4 (severe); K22.2 Esophageal obstruction; E11.22 Type 2 diabetes mellitus with diabetic chronic kidney disease; G83.20 Monoplegia of upper limb affecting unspecified side; F32.A Depression, unspecified; J96.02 Acute respiratory failure with hypercapnia; E78.5 Hyperlipidemia, unspecified; K29.50 Unspecified chronic gastritis without bleeding; K44.9 Diaphragmatic hernia without obstruction or gangrene; K21.00 Gastro-esophageal reflux disease with esophagitis, without bleeding; Z79.4 Long term (current) use of insulin; I25.10 Atherosclerotic heart disease of native coronary artery without angina pectoris; I44.7 Left bundle-branch block, unspecified; I25.5 Ischemic cardiomyopathy; I25.2 Old myocardial infarction; I49.3 Ventricular premature depolarization; Z95.5 Presence of coronary angioplasty implant and graft; G89.29 Other chronic pain; Z87.891 Personal history of nicotine dependence; Z79.891 Long term (current) use of opiate analgesic; Z66 Do not resuscitate; Z79.84 Long term (current) use of oral hypoglycemic drugs; Z79.82 Long term (current) use of aspirin; R13.10 Dysphagia, unspecified; Z79.52 Long term (current) use of systemic steroids
CPT/HCPCS: 36415; 36600; 70450; 71046; 71275; 72125; 74230; 80048; 80202; 82803; 82962; 83735; 83880; 84100; 84484; 85025; 85730; 87040; 87070; 87205; 87449; 87631; 88305; 88312; 92526; 92611; 93005; 93308; 94002; 94003; 94640; 94660; 94668; 94762; 97110; 97162; 97166; 97530; 97535; 97802; 97803; 99252; 99284; J7030; J7050; Q9957; Q9967; A4216; C1769; C8924; G0463; J1940; J2405

== ENCOUNTER 2024-01-15 14:52 | Inpatient (IN) | payer OTHER, SELFPAY ==
[2024-01-15] VITALS (19 sets, daily range): BP systolic 120–153; BP diastolic 72–106; PULSE 83–104; RESP 12–30; TEMP 36.2–36.8; O2SAT 77–100; BMI 21.9
--- NOTE | 2024-01-15 15:02 | EKG12_ITS ---
Test Reason : SOB Blood Pressure : / mmHG Vent. Rate : 101 BPM Atrial Rate : 101 BPM P-R Int : 152 ms QRS Dur : 148 ms QT Int : 392 ms P-R-T Axes : 077 082 -82 degrees QTc Int : 508 ms Sinus tachycardia Left bundle branch block Abnormal ECG Confirmed by DAX LAW, LIS ([id number]), sports editor VIRGILIO RINALDI ([id number]) on 01/16/2024 7:41:15 AM Referred By: Confirmed By:LIS VERDUZCO MD
--- NOTE | 2024-01-15 15:04 | EX.ED.DYSGE1 ---
HPI History of Present Illness Chief Complaint: Alt LOC Informant: patient and EMS Narrative Narrative: 78-year-old male last seen normal at dinner last night presenting around 1500 by EMS as a prehospital stroke team. EMS admits that it was very difficult to obtain history about the patient who has been confused and weak/altered presumably since sometime last night. Home health found him on the floor today even though his was here. She is not doing well either clinically according to EMS. Patient has a history of COPD on home oxygen but unknown how much or time patterns, he did not have it when he was evaluated by them, was laying on the floor for an unknown period of time. They thought he had a left facial droop which is why they called stroke team given his altered level of consciousness and last known well within 24 hours. [facility] Medical History Dysphagia CHF exacerbation Hearing loss, left Hearing loss, right Anxiety Diabetes Chronic pain Kidney stones Kidney disease Former smoker Sleep apnea COPD (chronic obstructive pulmonary disease) Chest pain Myocardial infarct Hypertension DVT (deep venous thrombosis) Unable to walk Acute kidney injury Home Medications ?Medication ?Instructions ?Recorded ?Last Taken ?Type gabapentin 400 mg capsule 400 mg PO TID NERVE PAIN 08/20/18 12/05/23 History glipizide 5 mg tablet 5 mg PO .BEFORE MEALS DM 08/20/18 12/05/23 History sertraline 50 mg tablet 100 mg PO DAILY DEPRESSION 08/20/18 12/05/23 History carvedilol 3.125 mg tablet 3.125 mg PO BID blood pressure 08/21/18 12/05/23 Rx clopidogrel 75 mg tablet 75 mg PO DAILY anti platelet 08/21/18 12/05/23 Rx albuterol 90 mcg/actuation aerosol 90 mcg inhalation .4X A DAY PRN SOB 12/30/22 Unknown History inhaler cholecalciferol (vitamin D3) 25 75 mcg PO DAILY vitamin 12/30/22 12/05/23 History mcg (1,000 unit) capsule cyanocobalamin (vitamin B-12) 1,000 mcg PO DAILY vitamin 12/30/22 12/05/23 History 1,000 mcg capsule hydrocodone-acetaminophen 5-325mg 1 tab PO TID pain 12/30/22 12/05/23 History 5mg-325mg mometasone 200 mcg/actuation HFA 2 puff inhalation BID breathing 12/30/22 12/05/23 History aerosol inhaler (Asmanex HFA) rosuvastatin 40 mg tablet (Crestor) 40 mg PO QHS cholesterol 12/30/22 12/04/23 History tiotropium 2.5 mcg-olodaterol 2.5 2 inh inhalation DAILY breathing 12/30/22 12/05/23 History mcg/actuation mist for inhalation (Stiolto Respimat) aspirin 81 mg tablet,delayed 81 mg PO DAILY heart meera 12/05/23 12/05/23 History release (Adult Aspirin Regimen) furosemide 40 mg tablet 40 mg PO DAILY diuretic 12/05/23 12/05/23 History furosemide 20 mg tablet 20 mg PO .evening chf 1 month #30 12/15/23 Unknown Rx tabs insulin glargine 100 unit/mL 18 unit (0.18 mL) subcut QHS bg 30 12/15/23 12/04/23 Rx subcutaneous solution days #0 mL insulin lispro 100 unit/mL 5 unit (0.05 mL) subcut TIDAC bg 1 12/15/23 Unknown Rx subcutaneous pen (Humalog KwikPen month #15 mL (U-100) Insulin) insulin lispro 100 unit/mL See Protocol subcut ACHS bg #0 mL 12/15/23 Unknown Rx subcutaneous pen (Humalog KwikPen (U-100) Insulin) pantoprazole 40 mg tablet,delayed 40 mg PO BID stomach 30 days #60 12/15/23 Unknown Rx release (Protonix) tabs prednisone 20 mg tablet 40 mg (2 x 20 mg) PO BREAKFAST #6 01/07/24 Unknown Rx tabs Allergy/AdvReac Type Severity Reaction Status Date / Time No Known Allergies Allergy Verified 12/31/23 11:35 Surgical History Hx of CABG History of coronary artery stent placement Social History household members: spouse Smoking Status: Former smoker ROS ROS ED Review of Systems ROS Unobtainable: due to mental status Constitutional Constitutional ED: Reports weakness Cardiovascular Cardiovascular: Denies chest pain Respiratory/Chest Respiratory/Chest: Denies dyspnea Gastrointestinal Gastrointestinal: Denies nausea or vomiting Neurologic Neurologic: Reports headache(s) and other Details: Confusion per EMS per family EXAM Physical Exam Const Vital Signs: 01/15/24 14:58 01/15/24 15:12 01/15/24 15:12 Temperature 98 F Temperature Source Temporal Pulse Rate 99 Respiratory Rate 16 Blood Pressure 139/72 H Blood Pressure Mean 94 Pulse Ox 77 94 Oxygen Delivery Method Room Air Non-Rebreather Bi-pap Oxygen Flow Rate (L/min) 11 Fraction of Inspired Oxygen (FIO2) 01/15/24 15:14 01/15/24 15:14 01/15/24 15:25 Temperature Temperature Source Pulse Rate 99 99 Respiratory Rate 14 12 Blood Pressure Blood Pressure Mean Pulse Ox 81 94 94 Oxygen Delivery Method Non-Rebreather Oxygen Flow Rate (L/min) 14 Fraction of Inspired Oxygen (FIO2) 100 60 50 01/15/24 15:30 01/15/24 16:00 01/15/24 16:11 Temperature Temperature Source Pulse Rate 99 101 H 101 H Respiratory Rate 20 H 28 H 20 H Blood Pressure 120/101 H Blood Pressure Mean 107 Pulse Ox 96 96 Oxygen Delivery Method Bi-pap Oxygen Flow Rate (L/min) Fraction of Inspired Oxygen (FIO2) 30 01/15/24 16:38 01/15/24 16:56 Temperature 98.1 F 98.2 F Temperature Source Temporal Pulse Rate 97 97 Respiratory Rate 20 H 20 H Blood Pressure 130/106 H 153/78 H Blood Pressure Mean 114 103 Pulse Ox 97 94 Oxygen Delivery Method Bi-pap Oxygen Flow Rate (L/min) Fraction of Inspired Oxygen (FIO2) 35 Positive well nourished and well developed General Appearance ED: well developed and NAD HEENT Reports moist mucous membranes normocephalic and atraumatic Eyes PERRL and EOMs intact bilaterally Neck full ROM and supple Chest Wall inspection of chest normal and palpation of chest normal Resp normal respiratory effort Resp Narrative: Diminished throughout. Mild end expiratory wheezes Cardio regular rate, regular rhythm and no murmurs GI non-tender and non-distended Auscultation: normoactive bowel sounds Palpation: soft Back/Spine no CVA tenderness General Back: other FROM Extremity normal to inspection General Extremety ED: Yes edema; Negative for pulses abnormal or tenderness General Extremity: edema bilateral lower extremity Details: moderate; Negative for pulses abnormal Neuro oriented x3, CN's II-XII intact bilaterally and no sensory deficits noted Neuro Narrative: No facial droop. No focal lateralizing neurologic deficits. Alert and oriented person, general place, and the year and month but not his age. Sensorium / Orientation: awake and alert Motor Exam: general weakness Psych Psych Narrative: flat affect Skin no rashes or lesions noted and no wounds NIHSS NIHSS Initial: 1a Level of Consciousness: 1 1b LOC Questions (Score 2 if aphasic/stupor): 1 1c LOC Commands (Only score 1st attempt): 0 2 Best Gaze (If aphasic, use reflexive mvmts.): 0 3 Visual: 0 4 Facial Palsy: 0 5 Motor Arm Right (UN = amputation/fusion): 0 5 Motor Arm Left: 0 6 Motor Leg Right: 1 6 Motor Leg Left: 1 7 Limb ataxia (Only + if out of proportion): 0 8 Sensory (Aphasia/stupor=0 or 1, coma=2): 0 9 Best Language: 0 10 Dysarthria (mute, coma=2, intubated=UN): 0 11 Extinction and Inattention (only scored if +): 0 Total Score: 4 MDM MDM MDM Narrative Medical decision making narrative: I saw the patient emergently upon EMS arrival in the ambulance bay to screen him for the stroke alert. He does not have any lateralizing neurologic deficits, is somnolent but alerts to voice and follows commands his airway is intact, and he does not have a facial droop. He is edentulous. EMS is in agreement, they state it was hard to tell, we canceled the stroke alert because it does not appear that the patient is likely having an acute stroke, although we are still going to obtain a CT scan of the head to screen him for primary [employer]OUTE [employer]NER abnormality such as a subdural. He has an abrasion of his left forearm like he may have fallen. There is no sign of head injury. The initial test that we obtained quickly was an ABG, it does confirm that he is acutely hypercapnic with a pH of 7.22 and a pCO2 of 83, pO2 of 73. We are putting him on BiPAP and we will repeat an ABG later while we are obtaining a rest of the workup. Portable chest x-ray on my interpretation shows large area of infiltrate/consolidation in the left lung whereas the right appears normal also less likely to be cardiogenic pulmonary edema and more likely to be infection. His lactate is normal arguing against sepsis, therefore his lethargy is more likely due to his hypercapnia. Therefore I ordered IV antibiotics in addition to Solu-Medrol. He is tolerating BiPAP and alert enough to stay on it for right now. Plan will be to repeat an ABG. This was done, it shows some improvement in all aspects, pH/pCO2/pO2; the patient is fairly lethargic, but tolerating BiPAP and I do not think he needs to be admitted right now.. Plan will be to admit to the ICU. His EKG shows no changes from his left bundle that is old, labs noted, on my interpretation his head CT is negative for acute traumatic or nontraumatic hemorrhage/asymmetry. Lab Data Attestation: I reviewed the patient's lab results. Labs: Laboratory Results - last 24 hr 01/15/24 01/15/24 01/15/24 15:15 15:34 16:12 WBC 10.2 RBC 4.74 Hgb 13.9 Hct 45.1 MCV 95.1 H MCH 29.3 MCHC 30.8 L RDW Std Deviation 57.3 H RDW Coeff of Audi 16.4 H Plt Count 178 MPV 10.6 Immature Gran % (Auto) 1.200 H Neut % (Auto) 85.4 H Lymph % (Auto) 6.1 L [place] % (Auto) 6.6 Eos % (Auto) 0.3 Baso % (Auto) 0.4 Absolute Neuts (auto) 8.7 H Absolute Lymphs (auto) 0.62 L Nucleated RBC % 0 Sodium Cancelled 141 Potassium Cancelled 4.6 Chloride Cancelled 109 H Carbon Dioxide Cancelled 27.0 Anion Gap Cancelled 5 BUN Cancelled 47 H Creatinine Cancelled 1.56 H Estim Creat Clear Calc Cancelled 38.30 Est GFR (MDRD) Af Amer Cancelled 56 L Est GFR (MDRD) Non-Af Cancelled 46 L BUN/Creatinine Ratio Cancelled 30.1 H Glucose Cancelled 58 L Lactic Acid 1.3 Calcium Cancelled 8.5 Total Bilirubin Cancelled 0.40 AST Cancelled 54 H ALT Cancelled 38 Alkaline Phosphatase Cancelled 178 H Total Creatine Kinase Cancelled 122 Troponin I High Sens Cancelled 39 Total Protein Cancelled 6.4 Albumin Cancelled 2.2 L Globulin Cancelled 4.2 Albumin/Globulin Ratio Cancelled 0.5 L Urine Color Yellow Urine Clarity Clear Urine pH 5.0 Ur Specific [place] 1.020 Urine Protein 30 H Urine Glucose (UA) Normal Urine Ketones Negative Urine Occult Blood 10 H Urine Nitrite Negative Urine Bilirubin Negative Urine Urobilinogen Normal Ur Leukocyte Esterase Negative Urine RBC 0 SEEN Urine WBC 0-5 SEEN Ur Squamous Epith Cells 0 SEEN Urine Bacteria 2+ Hyaline Casts 5-10 SEEN Urine Mucus 0 SEEN Urine Opiates Screen POSITIVE H Urine Methadone Screen NEGATIVE Ur Barbiturates Screen NEGATIVE Ur Phencyclidine Scrn NEGATIVE Ur Amphetamines Screen NEGATIVE MDMA (Ecstasy) Screen NEGATIVE U Benzodiazepines Scrn NEGATIVE Urine Cocaine Screen NEGATIVE U Cannabinoids Screen NEGATIVE Ur Drug Screen Comment Ethyl Alcohol < 3.0 ABG Data ABG results: ABG 01/15/24 01/15/24 15:05 16:13 Specimen Type ART ART Sample Site R Brach R Radial pH 7.22 L 7.27 L Bicarbonate Actual 34.3 H 33.5 H Total CO2 37 36 Base Excess 7 H 7 H O2 Saturation 76 L 89 L O2 % 10.0 30.0 ABG pCO2 83.8 H* 72.5 H* ABG pO2 51 L 67 L Meliton Test Positive Respiration Rate 12 O2 Delivery Device NRB avaps Vent Mode Not entered Not entered Tidal Volume 550.0 Crit Call To/Read Back Yes Yes Blood Gas Notified Whom bb bb Blood Gas Notified Time 15:07:39 16:15:14 Radiography Diagnostic Testing: Clinical Impression(s) from Imaging Studies Chest X-Ray 01/15/24 15:30 IMPRESSION: Prominent consolidation throughout the left lung, grossly stable. Electronically Signed: Dave Hurd MD at 16:12 EDT , Brain CT 01/15/24 16:00 IMPRESSION: Chronic involutional changes of the brain. No change or acute abnormality. Electronically Signed: Dave Hurd MD at 16:23 EDT , Rhythm Strip Rhythm Strip: Sinus Rhythm Rate: 95 Ectopy: None EKG Initial EKG: Attestation: I personally reviewed and interpreted this EKG as follows: Interpretation: No Acute Injury Pattern, Sinus Tachycardia and LBBB Prior EKG tracings: available for review Prior: Unchanged Management Discussion w/another healthcare provider: Hospitalist Critical Care Time Critical Care Time: Yes Critical care time (excluding procedures): 30-74 minutes (37 min), Including time spent:, Discussing w/Patient &/or Family/District Plant Engineer, Discussing w/Consultants, Arranging Admission or Transfer and Performing Direct Patient Care at Bedside Discharge Plan Dx/Rx/DC Orders Clinical Impression: Acute respiratory failure with hypoxia and hypercapnia, Pneumonia involving left lung Disposition Disposition: Acute Care Hospital [facility] Stroke Documentation Questions Stroke Team Activated: Yes (Prehospital; canceled upon initial MD evaluation) Was Patient considered for Endovascular Intervention?: No-CTA not indicated IV Thrombolytic Administered: No
[2024-01-15 15:10] LABS: Base Excess 7 mmol/L (-2 to +2); Bicarbonate 34.3 mmol/L (22-26); Blood Gas Specimen Type ART; Mode Not entered; O2 Delivery Device NRB; PO2 51 mmHG (75-100); SITE R Brach; SO2 76 % (95-99); Total Carbon Dioxide 37 mmol/L; pCO2 83.8 mmHg (35-45); pH 7.22 (7.35-7.45)
[2024-01-15 15:25] LABS: Absolute Lymphocyte Count 0.62 X10^3/uL (0.83-4.51); Absolute Neutrophil Count 8.7 X10^3/uL (2.0-7.7); Basophil# 0.04 X10^3/uL; Basophil% 0.4 % (0-1); Eosinophil# 0.03 X10^3/uL; Eosinophils% 0.3 % (0-5); Hematocrit 45.1 % (40-54); Hemoglobin 13.9 g/dL (13.0-16.5); Lymphocyte # 0.62 X10^3/ul (0.83-4.51); Lymphocyte % 6.1 % (19-41); Mean Corp Hgb Conc 30.8 g/dL (32-36); Mean Corpuscular Hgb 29.3 pg (27.0-32.0); Mean Corpuscular Volume 95.1 fL (80-94); Mean Platelet Vol. 10.6 fl (6.2-12.0); Monocyte# 0.67 X10^3/uL; Monocyte% 6.6 % (0-10); NRBC Flagged by Analyzer 0 % (0-5); Neutrophil # 8.67 X10^3/uL (2.7-7.7); Neutrophil % 85.4 % (47-70); Platelet Count 178 K/mm3 (150-450); RBC Distribution Width CV 16.4 % (11.6-14.6); RBC Distribution Width SD 57.3 fl (35.1-43.9); Red Blood Count 4.74 M/mm3 (4.6-6.2); White Blood Count 10.2 K/mm3 (4.4-11.0)
[2024-01-15] MEDS: Albuterol 2.5 MG/3 ML VIAL.NEB. INHALATION (15:27)
[2024-01-15] MEDS: Ipratropium/Albuterol Sulfate 3 ML AMPUL.NEB INHALATION ×2 (15:27→23:45)
--- NOTE | 2024-01-15 15:30 | RAD_ITS ---
STUDY: X-RAY CHEST REASON FOR EXAM: Male, 78 years old. weakness TECHNIQUE: Single AP portable view of the chest. COMPARISON: 12/31/2023 FINDINGS: Normal lung volumes. Continued opacification of most of the left lung. Small amount of aeration of the left apex and in the left base. Cannot exclude small effusions. Sternal cerclage wires and vascular clips are present from a prior sternotomy and coronary artery bypass graft procedure (CABG). Probable mild cardiomegaly. Normal mediastinum and loco. Normal visualized pulmonary arteries. Normal visualized aortic arch and descending thoracic aorta. There are diffuse degenerative changes of the visualized thoracic spine. Normal visualized ribs, clavicles, and shoulders. There is no demonstrated abnormality of the visualized soft tissue structures of the upper abdomen. RAD/Chest 1 View (Portable) IMPRESSION: Prominent consolidation throughout the left lung, grossly stable. Electronically Signed: Dave Hurd MD at 16:12 EDT ,
[2024-01-15 15:36] LABS: Alcohol, Blood (Medical)-Serum < 3.0 mg/dL
[2024-01-15 15:39] LABS: Mucous, Urine 0 SEEN /hpf (<or=2+); Red Blood Cells-Urine 0 SEEN /hpf (0-5); Squamous Epithelial Cells - UA 0 SEEN /hpf (0-5)
[2024-01-15 15:49] LABS: Lactic Acid 1.3 mmol/L (0.4-1.9)
--- NOTE | 2024-01-15 15:49 | NURSING ---
[facility], REDRAW
[2024-01-15 15:50] LABS: Color, Urine Yellow (Yellow); Glucose, Dipstick Normal (Normal); Ketone-Dipstick Negative (Negative); Leukocyte Esterase-Dipstick Negative /ul (Negative); Nitrite-Dipstick Negative (Negative); Occult Blood-Urine 10 /ul (Negative); Protein-Dipstick 30 mg/dl (Negative); Urine Bilirubin Dipstick Negative (Negative); Urine Clarity Clear (Clear); Urine Urobilinogen Normal (Normal)
--- NOTE | 2024-01-15 16:00 | CT_ITS ---
All STUDY: CT BRAIN WITHOUT CONTRAST REASON FOR EXAM: Male, 78 years old. altered mental status RADIATION DOSAGE (If Supplied By Facility): CTDIvol = ( 44.99 ) mGy, DLP = ( 863.60 ) mGycm TECHNIQUE: Transaxial CT imaging of the brain was performed without administration of intravenous contrast material. Individualized dose optimization techniques were used for this CT. COMPARISON: 01/06/2024 FINDINGS: Normal soft tissue structures. Normal calvarium. There is mild cerebral atrophy with widening of the extra-axial spaces and ventricular dilatation. There are areas of decreased attenuation within the white matter tracts of the supratentorial brain, consistent with microvascular disease changes. Normal basal ganglia and thalami. Normal brainstem. Normal cerebellum. 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 There is no intracranial hemorrhage. There are no findings of an acute ischemic infarction. Normal visualized paranasal sinuses. CT/Brain/Head without Contrast IMPRESSION: Chronic involutional changes of the brain. No change or acute abnormality. Electronically Signed: Dave Hurd MD at 16:23 EDT ,
[2024-01-15 16:08] LABS: Bacteria 2+ /hpf (None Seen); White Blood Cells 0-5 SEEN /hpf (0-5)
[2024-01-15 16:09] LABS: Hyaline Cast 5-10 SEEN /lpf (0-5)
[2024-01-15] MEDS: MethylPREDNISolone 125 MG/2 ML Vial IV (16:15)
[2024-01-15 16:18] LABS: Allen Test Positive; Base Excess 7 mmol/L (-2 to +2); Bicarbonate 33.5 mmol/L (22-26); Blood Gas Specimen Type ART; Mode Not entered; O2 Delivery Device avaps; PO2 67 mmHG (75-100); RR 12; SITE R Radial; SO2 89 % (95-99); Total Carbon Dioxide 36 mmol/L; pCO2 72.5 mmHg (35-45); pH 7.27 (7.35-7.45)
[2024-01-15] MEDS: Piperacil/Tazobactam 4.5 GM in 0.9% Normal Saline (100mL MB+) 100 ML IV (16:18)
[2024-01-15 16:23] LABS: Amphetamine Urine VISTA NEGATIVE (<1000 ng/mL); Barbiturate Urine VISTA NEGATIVE (< 200 ng/mL); Benzodiazepine Urine VISTA NEGATIVE (< 200 ng/mL); Cocaine Urine VISTA NEGATIVE (< 300 ng/mL); Ecstacy Urine VISTA NEGATIVE (< 500 ng/mL); Methadone Urine VISTA NEGATIVE (< 300 ng/mL); PCP Urine VISTA NEGATIVE (< 25 ng/mL); THC Urine VISTA NEGATIVE (< 50 ng/mL); Vista UDS pH Range 4
[2024-01-15] MEDS: Azithromycin 500 MG in Dextrose 5%-Water (250mL Bag) 250 ML 250 MG IV (17:02)
--- NOTE | 2024-01-15 17:02 | NURSING ---
CALLED [facility], CHART WAS REQUESTED AND AFAXED TO T
--- NOTE | 2024-01-15 17:02 | NURSING ---
CALLED [facility], CHART REQUESTED AND FAXED
--- NOTE | 2024-01-15 17:08 | HP.PCM.HOS_ITS ---
HPI - General General Date of Admission: 01/15/24 HPI Narrative JONHA ALEXANDRA, is a 78 M who presents to the hospital initially as a stroke alert secondary to being found on the floor at home. The last time he was seen was at dinner last night with family. His is well-known to me and has a history of cirrhosis after TIPS procedure that is also often complicated by altered mental status and EMS felt that she also looked abnormal but did not come to the ER. He does have a history of COPD and was recently hospitalized for acute hypoxic and hypercapnic respiratory failure with aspiration pneumonia and completed a course of antibiotics. Here he does not have a white count and his chest x-ray looks similar to the CT scan during a previous admission to he will not be treated for pneumonia at this time. We are having difficulty with lab so we do not have a BMP so we do not have a complete picture at the moment. ABG is improving as his pH is coming up and his CO2 is going down however he is still lethargic and does not open his eyes to command. From respiratory standpoint he is doing well on BiPAP [facility] Medical History Dysphagia CHF exacerbation Hearing loss, left Hearing loss, right Anxiety Diabetes Chronic pain Kidney stones Kidney disease Former smoker Sleep apnea COPD (chronic obstructive pulmonary disease) Chest pain Myocardial infarct Hypertension DVT (deep venous thrombosis) Unable to walk Acute kidney injury Home Medications ?Medication ?Instructions ?Recorded ?Last Taken ?Type gabapentin 400 mg capsule 400 mg PO TID NERVE PAIN 08/20/18 12/05/23 History glipizide 5 mg tablet 5 mg PO .BEFORE MEALS DM 08/20/18 12/05/23 History sertraline 50 mg tablet 100 mg PO DAILY DEPRESSION 08/20/18 12/05/23 History carvedilol 3.125 mg tablet 3.125 mg PO BID blood pressure 08/21/18 12/05/23 Rx clopidogrel 75 mg tablet 75 mg PO DAILY anti platelet 08/21/18 12/05/23 Rx albuterol 90 mcg/actuation aerosol 90 mcg inhalation .4X A DAY PRN SOB 12/30/22 Unknown History inhaler cholecalciferol (vitamin D3) 25 75 mcg PO DAILY vitamin 12/30/22 12/05/23 History mcg (1,000 unit) capsule cyanocobalamin (vitamin B-12) 1,000 mcg PO DAILY vitamin 12/30/22 12/05/23 History 1,000 mcg capsule hydrocodone-acetaminophen 5-325mg 1 tab PO TID pain 12/30/22 12/05/23 History 5mg-325mg mometasone 200 mcg/actuation HFA 2 puff inhalation BID breathing 12/30/22 12/05/23 History aerosol inhaler (Asmanex HFA) rosuvastatin 40 mg tablet (Crestor) 40 mg PO QHS cholesterol 12/30/22 12/04/23 History tiotropium 2.5 mcg-olodaterol 2.5 2 inh inhalation DAILY breathing 12/30/22 12/05/23 History mcg/actuation mist for inhalation (Stiolto Respimat) aspirin 81 mg tablet,delayed 81 mg PO DAILY heart meera 12/05/23 12/05/23 History release (Adult Aspirin Regimen) furosemide 40 mg tablet 40 mg PO DAILY diuretic 12/05/23 12/05/23 History furosemide 20 mg tablet 20 mg PO .evening chf 1 month #30 12/15/23 Unknown Rx tabs insulin glargine 100 unit/mL 18 unit (0.18 mL) subcut QHS bg 30 12/15/23 12/04/23 Rx subcutaneous solution days #0 mL insulin lispro 100 unit/mL 5 unit (0.05 mL) subcut TIDAC bg 1 12/15/23 Unknown Rx subcutaneous pen (Humalog KwikPen month #15 mL (U-100) Insulin) insulin lispro 100 unit/mL See Protocol subcut ACHS bg #0 mL 12/15/23 Unknown Rx subcutaneous pen (Humalog KwikPen (U-100) Insulin) pantoprazole 40 mg tablet,delayed 40 mg PO BID stomach 30 days #60 12/15/23 Unknown Rx release (Protonix) tabs prednisone 20 mg tablet 40 mg (2 x 20 mg) PO BREAKFAST #6 01/07/24 Unknown Rx tabs Allergy/AdvReac Type Severity Reaction Status Date / Time No Known Allergies Allergy Verified 12/31/23 11:35 Surgical History Hx of CABG History of coronary artery stent placement Social History household members: spouse Smoking Status: Former smoker ROS Review of Systems ROS Unobtainable: due to encephalopathy Vital Signs Vital Signs Vital Signs: 01/15/24 14:58 01/15/24 15:12 01/15/24 15:12 Temperature 98 F Temperature Source Temporal Pulse Rate 99 Respiratory Rate 16 Blood Pressure 139/72 H Blood Pressure Mean 94 Pulse Ox 77 94 Oxygen Delivery Method Room Air Non-Rebreather Bi-pap Oxygen Flow Rate (L/min) 11 Fraction of Inspired Oxygen (FIO2) 01/15/24 15:14 01/15/24 15:14 01/15/24 15:25 Temperature Temperature Source Pulse Rate 99 99 Respiratory Rate 14 12 Blood Pressure Blood Pressure Mean Pulse Ox 81 94 94 Oxygen Delivery Method Non-Rebreather Oxygen Flow Rate (L/min) 14 Fraction of Inspired Oxygen (FIO2) 100 60 50 01/15/24 15:30 01/15/24 16:00 01/15/24 16:11 Temperature Temperature Source Pulse Rate 99 101 H 101 H Respiratory Rate 20 H 28 H 20 H Blood Pressure 120/101 H Blood Pressure Mean 107 Pulse Ox 96 96 Oxygen Delivery Method Bi-pap Oxygen Flow Rate (L/min) Fraction of Inspired Oxygen (FIO2) 30 01/15/24 16:38 01/15/24 16:56 Temperature 98.1 F 98.2 F Temperature Source Temporal Pulse Rate 97 97 Respiratory Rate 20 H 20 H Blood Pressure 130/106 H 153/78 H Blood Pressure Mean 114 103 Pulse Ox 97 94 Oxygen Delivery Method Bi-pap Oxygen Flow Rate (L/min) Fraction of Inspired Oxygen (FIO2) 35 Weight Weight: 148 lb 3.2 oz Body Mass Index (BMI) 21.9 Physical Exam Narrative General: Lethargic HEENT: Atraumatic, PERRLA, EOMI, Normocephalic Oral: Dry mucosa Neck: Supple, No JVD Lungs: Diminished, Normal air movement, No rhonchi, scattered wheeze, No rales Cardiovascular: Tachycardic, Regular Rhythm, Normal S1, Normal S2, No murmurs Abdomen: Soft, Non Tender, Non-Distended, No Hepato-splenomegaly Extremities: Edema, Capillary Refill Less than 3 Seconds Skin: No rashes, No breakdown, areas of ecchymosis Musculoskeletal: No Tenderness to Palpation of Joints or Extremities Neurological: Given altered mental status and encephalopathy cannot examine Psych/Mental Status: Lethargic Results Lab / Micro Data 01/15/24 15:15 01/15/24 15:15 Labs: Laboratory Results - last 24 hr 01/15/24 15:15: WBC 10.2, RBC 4.74, Hgb 13.9, Hct 45.1, MCV 95.1 H, MCH 29.3, M CHC 30.8 L, RDW Std Deviation 57.3 H, RDW Coeff of Audi 16.4 H, Plt Count 178, MPV 10.6, Immature Gran % (Auto) 1.200 H, Neut % (Auto) 85.4 H, Lymph % (Auto) 6.1 L, [place] % (Auto) 6.6, Eos % (Auto) 0.3, Baso % (Auto) 0.4, Absolute Neuts (auto) 8.7 H, Absolute Lymphs (auto) 0.62 L, Nucleated RBC % 0, Sodium Cancelled, Potassium Cancelled, Chloride Cancelled, Carbon Dioxide Cancelled, Anion Gap Cancelled, BUN Cancelled, Creatinine Cancelled, Estim Creat Clear Calc Cancelled, Est GFR (MDRD) Af Amer Cancelled, Est GFR (MDRD) Non-Af Cancelled, BUN/Creatinine Ratio Cancelled, Glucose Cancelled, Lactic Acid 1.3, Calcium Cancelled, Total Bilirubin Cancelled, AST Cancelled, ALT Cancelled, Alkaline Phosphatase Cancelled, Total Creatine Kinase Cancelled, Troponin I High Sens Cancelled, Total Protein Cancelled, Albumin Cancelled, Globulin Cancelled, Albumin/Globulin Ratio Cancelled, Ethyl Alcohol < 3.0 01/15/24 15:34: Urine Color Yellow, Urine Clarity Clear, Urine pH 5.0, Ur Specific [place] 1.020, Urine Protein 30 H, Urine Glucose (UA) Normal, Urine Ketones Negative, Urine Occult Blood 10 H, Urine Nitrite Negative, Urine Bilirubin Negative, Urine Urobilinogen Normal, Ur Leukocyte Esterase Negative, Urine RBC 0 SEEN, Urine WBC 0-5 SEEN, Ur Squamous Epith Cells 0 SEEN, Urine Bacteria 2+, Hyaline Casts 5-10 SEEN, Urine Mucus 0 SEEN, Urine Opiates Screen POSITIVE H, Urine Methadone Screen NEGATIVE, Ur Barbiturates Screen NEGATIVE, Ur Phencyclidine Scrn NEGATIVE, Ur Amphetamines Screen NEGATIVE, MDMA (Ecstasy) Screen NEGATIVE, U Benzodiazepines Scrn NEGATIVE, Urine Cocaine Screen NEGATIVE, U Cannabinoids Screen NEGATIVE, Ur Drug Screen Comment ABG Data ABG results: ABG 01/15/24 01/15/24 15:05 16:13 Specimen Type ART ART Sample Site R Brach R Radial pH 7.22 L 7.27 L Bicarbonate Actual 34.3 H 33.5 H Total CO2 37 36 Base Excess 7 H 7 H O2 Saturation 76 L 89 L O2 % 10.0 30.0 ABG pCO2 83.8 H* 72.5 H* ABG pO2 51 L 67 L Meliton Test Positive Respiration Rate 12 O2 Delivery Device NRB avaps Vent Mode Not entered Not entered Tidal Volume 550.0 Crit Call To/Read Back Yes Yes Blood Gas Notified Whom bb bb Blood Gas Notified Time 15:07:39 16:15:14 Rhythm Strip Rhythm Strip: Sinus Rhythm Rate: 95 Ectopy: None Imaging Radiology Impression Chest X-Ray 01/15/24 15:30 IMPRESSION: Prominent consolidation throughout the left lung, grossly stable. Electronically Signed: Dave Hurd MD at 16:12 EDT , Brain CT 01/15/24 16:00 IMPRESSION: Chronic involutional changes of the brain. No change or acute abnormality. Electronically Signed: Dave Hurd MD at 16:23 EDT , Assessment & Plan Assessment/Plan (1) Acute respiratory failure with hypoxia and hypercapnia: PLAN: Plan 1. Acute hypoxic and hypercapnic respiratory failure in the setting of acute COPD exacerbation ? Etiology is unclear at this time in terms of what instigated this episode, viral panel is currently pending ? Given his lethargy will transfer to the ICU on admission ? Will not treat his left lung opacity as this has been going on for the last 2 weeks and has received antibiotic courses as well as the fact that he has no white count ? Continue with DuoNebs and steroids ? Will consult the production bow maker ? Continue with PPI given his previous gastritis and esophagitis, during his previous admission though this was nonbleeding and he does not have anemia currently on admission today 2. Essential HTN/HLD/chronic combined systolic and diastolic CHF ? Await verification of his renal function as well as his medications prior to restarting anything ? He will likely need Lasix but given that he was found down with the potential for rhabdomyolysis, though these labs are pending, will hold off diuretics at this time ? Previous echo on 12/31/2023 with an EF of 20 to 25% with stage I diastolic dysfunction with moderately severe global right ventricular systolic dysfunction 3. DM2 with neuropathy ? Will place him on a every 4 sliding scale given the fact that he is n.p.o. while on BiPAP ? Will need to monitor closely as we are starting him on Solu-Medrol and will likely need insulin adjustment ? Accu-Cheks every 4 ? Will hold his glipizide as well as his gabapentin given his lethargy 4. Esophagitis ? Continue with Protonix IV daily ? He had an EGD on 01/03/2024 with no obvious bleeding 5. Anxiety/depression ? Stable ? Continue with Zoloft when able to take p.o. DVT: SCDs Charges/Coding Visit Charges Inpatient E&M: 41703 Init Hosp L3
[2024-01-15 18:13] LABS: ALB/GLOB Ratio 0.5 RATIO (0.9-2.4); AST(SGOT) 54 U/L (15-37); Alanine Aminotransfer ALT/SGPT 38 U/L (16-61); Albumin, Serum 2.2 g/dL (3.2-5.0); Alkaline Phosphatase 178 U/L (45-117); Anion Gap 5 (5-15); BUN 47 mg/dL (7-18); BUN/Creat Ratio 30.1 RATIO (10-20); CPK Total, Creatine Kinase 122 U/L (39-308); Calcium,Total 8.5 mg/dL (8.5-10.1); Chloride 109 mmol/L (98-107); Creatinine, Serum 1.56 mg/dL (0.70-1.30); EST Glomerular Filtration Rate 46 mL/min (>60); Est Glom Filt Rate - Afr Amer 56 mL/min (>60); Globulin 4.2 g/dL (2.2-4.2); Glucose 58 mg/dL (74-106); Potassium 4.6 mmol/L (3.5-5.1); Protein, Total 6.4 g/dL (6.4-8.2); Sodium Level 141 mmol/L (136-145); Troponin-I HS (w/2H Reflex) 39 pg/mL (3.0-78.0)
[2024-01-15 18:15] LABS: Reflex Troponin-HS? (from REC) Y
--- NOTE | 2024-01-15 18:43 | ED.RN ---
ATTEMPTED TO CALL REPORT. AWAITING CALL BACK
[2024-01-15 18:46] LABS: Troponin-I HS 52 pg/mL (3.0-78.0)
--- NOTE | 2024-01-15 18:49 | ED.RN ---
REPORT GIVEN TO HEAD SETTER
[2024-01-15 19:41] LABS: Allen Test Positive; Base Excess 5 mmol/L (-2 to +2); Bicarbonate 31.3 mmol/L (22-26); Blood Gas Specimen Type ART; Mode Not entered; O2 Delivery Device BiPAP; PO2 59 mmHG (75-100); RR 12; SITE L Brach; SO2 86 % (95-99); Total Carbon Dioxide 33 mmol/L; pCO2 64.4 mmHg (35-45)
[2024-01-15 22:20] LABS: Bedside Glucose 95 mg/dL (74-106)
[2024-01-15] MEDS: Pantoprazole Sodium 40 MG in 0.9% Normal Saline (100mL MB+) 100 ML 330 MG IV (23:01)
[2024-01-16] VITALS (26 sets, daily range): BP systolic 105–150; BP diastolic 54–85; PULSE 88–106; RESP 12–36; TEMP 36.1–36.9; O2SAT 80–100; BMI 21.9
[2024-01-16] MEDS: Ipratropium/Albuterol Sulfate 3 ML AMPUL.NEB INHALATION ×5 (03:10→23:29)
[2024-01-16 04:23] LABS: Absolute Lymphocyte Count 0.43 X10^3/uL (0.83-4.51); Basophil# 0.01 X10^3/uL; Basophil% 0.2 % (0-1); Hematocrit 38.9 % (40-54); Hemoglobin 12.1 g/dL (13.0-16.5); Lymphocyte # 0.43 X10^3/ul (0.83-4.51); Lymphocyte % 6.5 % (19-41); Mean Corp Hgb Conc 31.1 g/dL (32-36); Mean Corpuscular Hgb 29.2 pg (27.0-32.0); Mean Platelet Vol. 10.9 fl (6.2-12.0); Monocyte# 0.11 X10^3/uL; Monocyte% 1.7 % (0-10); NRBC Flagged by Analyzer 0 % (0-5); Neutrophil # 5.95 X10^3/uL (2.7-7.7); Neutrophil % 90.5 % (47-70); POSITIVE DIFFERENTIAL YES; Platelet Count 174 K/mm3 (150-450); RBC Distribution Width CV 16.7 % (11.6-14.6); Red Blood Count 4.14 M/mm3 (4.6-6.2); White Blood Count 6.6 K/mm3 (4.4-11.0)
[2024-01-16 04:37] LABS: Anion Gap 5 (5-15); BUN 51 mg/dL (7-18); BUN/Creat Ratio 32.3 RATIO (10-20); Calcium,Total 8.9 mg/dL (8.5-10.1); Chloride 105 mmol/L (98-107); Creatinine, Serum 1.58 mg/dL (0.70-1.30); EST Glomerular Filtration Rate 46 mL/min (>60); Est Glom Filt Rate - Afr Amer 55 mL/min (>60); Estimated Creatinine Clearance 37.86 ml/min; Glucose 101 mg/dL (74-106); Potassium 4.4 mmol/L (3.5-5.1); Sodium Level 140 mmol/L (136-145)
--- NOTE | 2024-01-16 06:38 | CON.PCM.CC_ITS ---
Assessment & Plan Assessment/Plan (1) Acute respiratory failure with hypoxia and hypercapnia: PLAN: Plan RECOMMENDATIONS: 1. Continue PAP therapy with naps and nightly. 2. Supplemental oxygen to maintain saturations at or above 90%. 3. Bronchodilators and steroids as ordered. 4. Resume home Lasix regimen. 5. Initiate appropriate DVT prophylaxis. 6. Recommend outpatient pulmonary follow-up after discharge. Recommend repeat chest imaging be completed in 6 weeks. 7. Baseline PFTs need to be obtained. IMPRESSIONS: 1. Acute on chronic combined respiratory failure Most likely multifactorial in etiology. Please refer to my prior hospital note for recommendations. I suspect that the patient has underlying COPD which is suboptimally treated along with chronic CO2 retention and it appears the patient was utilizing opiate pain medications. In addition, he is at high risk for aspiration, given a known history of esophageal stenosis requiring dilation. He was just hospitalized with concern for underlying pneumonia and has completed an antibiotic treatment course. The chest imaging noted at presentation appears similar to that completed in December. I have recommended that outpatient follow- up chest imaging be completed in 6 weeks. There is no need for additional antibiotics at the present time. While the patient would be a candidate for PAP therapy, he would first need to establish care in the pulmonary medicine office so that PFTs can be obtained. This was all recommended during his prior hospitalization, but it does not appear that a follow-up pulmonary appointment was ever made. Therefore, short of continuing PAP therapy, bronchodilators and steroids, I have no new additional recommendations. 2. History of tobacco dependency/coronary artery disease/heart failure with reduced ejection fraction/chronic kidney disease/diabetes mellitus/history of esophageal stenosis Complicates care, management, recovery and prognosis. Continue current supportive care as noted above. This note was generated with [employer] dictation software. It may contain incorrect words, spelling, and punctuation that were not noted in checking the note before signing. HPI Consult Data Date of Consult: 01/16/24 HPI Narrative Reason for Consultation: Acute on chronic combined respiratory failure HPI Narrative: The patient is a 78-year-old male, with a history as outlined below, who presented to the emergency department on January 14 with altered mental status. The patient is well-known from multiple prior hospitalizations. He has a known history of chronic respiratory failure with hypoxemia and hypercapnia along with presumptive COPD of unclear severity, as he has never been evaluated by a information technology internship or completed pulmonary function studies. In addition, the patient has known combined systolic and diastolic heart failure along with multiple episodes of recurrent aspiration related to esophageal stenosis requiring dilation. The patient was just discharged from the hospital on January 06, after having been admitted with respiratory failure related to decompensated heart failure and COPD exacerbation secondary to aspiration. The patient was supposed to follow-up in the pulmonary medicine clinic after discharge. However, it does not appear that a follow-up pulmonary medicine appointment was ever made at the time of his discharge. On presentation to the emergency department, the patient was documented to be afebrile and hemodynamically stable. Laboratory evaluation revealed a normal white blood cell count. Initial ABG demonstrated a pH of 7.2 with a pCO2 of 84 and pO2 of 51. Chemistry profile was notable for a creatinine of 1.56. Lactate was within normal limits. Troponin was negative. Toxicology screen was positive for urine opiates. Alcohol level was negative. CT head revealed chronic involutional changes of the brain. Chest imaging demonstrated findings similar to prior chest x-ray in December with opacification in the left hemithorax and flattened diaphragms. COVID, influenza and RSV PCR's were negative. The patient was subsequently placed on scheduled bronchodilators and IV steroids, along with noninvasive positive pressure ventilatory support. He was admitted to the medical intensive care unit for further management. [facility] Medical History Dysphagia CHF exacerbation Hearing loss, left Hearing loss, right Anxiety Diabetes Chronic pain Kidney stones Kidney disease Former smoker Sleep apnea COPD (chronic obstructive pulmonary disease) Chest pain Myocardial infarct Hypertension DVT (deep venous thrombosis) Unable to walk Acute kidney injury Home Medications ?Medication ?Instructions ?Recorded ?Last Taken ?Type gabapentin 400 mg capsule 400 mg PO TID NERVE PAIN 08/20/18 12/05/23 History glipizide 5 mg tablet 5 mg PO .BEFORE MEALS DM 08/20/18 12/05/23 History sertraline 50 mg tablet 100 mg PO DAILY DEPRESSION 08/20/18 12/05/23 History carvedilol 3.125 mg tablet 3.125 mg PO BID blood pressure 08/21/18 12/05/23 Rx clopidogrel 75 mg tablet 75 mg PO DAILY anti platelet 08/21/18 12/05/23 Rx albuterol 90 mcg/actuation aerosol 90 mcg inhalation .4X A DAY PRN SOB 12/30/22 Unknown History inhaler cholecalciferol (vitamin D3) 25 75 mcg PO DAILY vitamin 12/30/22 12/05/23 History mcg (1,000 unit) capsule cyanocobalamin (vitamin B-12) 1,000 mcg PO DAILY vitamin 12/30/22 12/05/23 History 1,000 mcg capsule hydrocodone-acetaminophen 5-325mg 1 tab PO TID pain 12/30/22 12/05/23 History 5mg-325mg mometasone 200 mcg/actuation HFA 2 puff inhalation BID breathing 12/30/22 12/05/23 History aerosol inhaler (Asmanex HFA) rosuvastatin 40 mg tablet (Crestor) 40 mg PO QHS cholesterol 12/30/22 12/04/23 History tiotropium 2.5 mcg-olodaterol 2.5 2 inh inhalation DAILY breathing 12/30/22 12/05/23 History mcg/actuation mist for inhalation (Stiolto Respimat) aspirin 81 mg tablet,delayed 81 mg PO DAILY heart meera 12/05/23 12/05/23 History release (Adult Aspirin Regimen) furosemide 40 mg tablet 40 mg PO DAILY diuretic 12/05/23 12/05/23 History furosemide 20 mg tablet 20 mg PO .evening chf 1 month #30 12/15/23 Unknown Rx tabs insulin glargine 100 unit/mL 18 unit (0.18 mL) subcut QHS bg 30 12/15/23 12/04/23 Rx subcutaneous solution days #0 mL insulin lispro 100 unit/mL 5 unit (0.05 mL) subcut TIDAC bg 1 12/15/23 Unknown Rx subcutaneous pen (Humalog KwikPen month #15 mL (U-100) Insulin) insulin lispro 100 unit/mL See Protocol subcut ACHS bg #0 mL 12/15/23 Unknown Rx subcutaneous pen (Humalog KwikPen (U-100) Insulin) pantoprazole 40 mg tablet,delayed 40 mg PO BID stomach 30 days #60 12/15/23 Unknown Rx release (Protonix) tabs prednisone 20 mg tablet 40 mg (2 x 20 mg) PO BREAKFAST #6 01/07/24 Unknown Rx tabs Allergy/AdvReac Type Severity Reaction Status Date / Time No Known Allergies Allergy Verified 12/31/23 11:35 Surgical History Hx of CABG History of coronary artery stent placement Social History household members: spouse Smoking Status: Former smoker ROS Review of Systems ROS Unobtainable: due to mental status Physical Exam Const no apparent distress Constitutional Narrative: Drowsy, but arousable to stimulation. BiPAP mask in place. General Appearance: lethargic HEENT normocephalic and head/scalp atraumatic Eyes PERRL, EOMs intact bilaterally and conjunctivae normal Neck supple General: trachea midline Chest inspection of chest normal Resp Auscultation: diminished lung sounds; Negative for rales, rhonchi or wheezes Cardio regular rate and regular rhythm GI normal to inspection, nondistended, normoactive bowel sounds Extremity General Extremity: edema; Negative for clubbing Skin no rashes or lesions noted Neuro CN's II-XII intact bilaterally and no focal motor deficits Psych Mood & Affect: flat affect Lab / Micro Data 01/16/24 04:00 01/16/24 04:00 Labs: Laboratory Results - last 24 hr 01/15/24 15:15: WBC 10.2, RBC 4.74, Hgb 13.9, Hct 45.1, MCV 95.1 H, MCH 29.3, M CHC 30.8 L, RDW Std Deviation 57.3 H, RDW Coeff of Audi 16.4 H, Plt Count 178, MPV 10.6, Immature Gran % (Auto) 1.200 H, Neut % (Auto) 85.4 H, Lymph % (Auto) 6.1 L, [place] % (Auto) 6.6, Eos % (Auto) 0.3, Baso % (Auto) 0.4, Absolute Neuts (auto) 8.7 H, Absolute Lymphs (auto) 0.62 L, Nucleated RBC % 0, Sodium Cancelled, Potassium Cancelled, Chloride Cancelled, Carbon Dioxide Cancelled, Anion Gap Cancelled, BUN Cancelled, Creatinine Cancelled, Estim Creat Clear Calc Cancelled, Est GFR (MDRD) Af Amer Cancelled, Est GFR (MDRD) Non-Af Cancelled, BUN/Creatinine Ratio Cancelled, Glucose Cancelled, Lactic Acid 1.3, Calcium Cancelled, Total Bilirubin Cancelled, AST Cancelled, ALT Cancelled, Alkaline Phosphatase Cancelled, Total Creatine Kinase Cancelled, Troponin I High Sens Cancelled, Total Protein Cancelled, Albumin Cancelled, Globulin Cancelled, Albumin/Globulin Ratio Cancelled, Ethyl Alcohol < 3.0 01/15/24 15:34: Urine Color Yellow, Urine Clarity Clear, Urine pH 5.0, Ur Specific [place] 1.020, Urine Protein 30 H, Urine Glucose (UA) Normal, Urine Ketones Negative, Urine Occult Blood 10 H, Urine Nitrite Negative, Urine Bilirubin Negative, Urine Urobilinogen Normal, Ur Leukocyte Esterase Negative, Urine RBC 0 SEEN, Urine WBC 0-5 SEEN, Ur Squamous Epith Cells 0 SEEN, Urine Bacteria 2+, Hyaline Casts 5-10 SEEN, Urine Mucus 0 SEEN, Urine Opiates Screen POSITIVE H, Urine Methadone Screen NEGATIVE, Ur Barbiturates Screen NEGATIVE, Ur Phencyclidine Scrn NEGATIVE, Ur Amphetamines Screen NEGATIVE, MDMA (Ecstasy) Screen NEGATIVE, U Benzodiazepines Scrn NEGATIVE, Urine Cocaine Screen NEGATIVE, U Cannabinoids Screen NEGATIVE, Ur Drug Screen Comment 01/15/24 16:12: Sodium 141, Potassium 4.6, Chloride 109 H, Carbon Dioxide 27.0, Anion Gap 5, BUN 47 H, Creatinine 1.56 H, Estim Creat Clear Calc 38.30, Est GFR (MDRD) Af Amer 56 L, Est GFR (MDRD) Non-Af 46 L, BUN/Creatinine Ratio 30.1 H, G lucose 58 L, Calcium 8.5, Total Bilirubin 0.40, AST 54 H, ALT 38, Alkaline Phosphatase 178 H, Total Creatine Kinase 122, Troponin I High Sens 39, Total Protein 6.4, Albumin 2.2 L, Globulin 4.2, Albumin/Globulin Ratio 0.5 L 01/15/24 18:21: Troponin I High Sens 52 01/15/24 22:01: POC Glucose 95 01/16/24 04:00: WBC 6.6, RBC 4.14 L, Hgb 12.1 L, Hct 38.9 L, MCV 94.0, MCH 29.2, MCHC 31.1 L, RDW Std Deviation 57.0 H, RDW Coeff of Audi 16.7 H, Plt Count 174, MPV 10.9, Immature Gran % (Auto) 1.100 H, Neut % (Auto) 90.5 H, Lymph % (Auto) 6.5 L, [place] % (Auto) 1.7, Eos % (Auto) 0.0, Baso % (Auto) 0.2, Absolute Neuts (auto) 6.0, Absolute Lymphs (auto) 0.43 L, Nucleated RBC % 0, Sodium 140, Potassium 4.4, Chloride 105, Carbon Dioxide 30.0, Anion Gap 5, BUN 51 H, C reatinine 1.58 H, Estim Creat Clear Calc 37.86, Est GFR (MDRD) Af Amer 55 L, Est GFR (MDRD) Non-Af 46 L, BUN/Creatinine Ratio 32.3 H, Glucose 101, Calcium 8.9 Micro: Microbiology 01/15/24 15:34 Mucosa - Nasopharyngeal SARS-CoV-2, Influenza & RSV (PCR) - Final ABG Data ABG results: ABG 01/15/24 01/15/24 01/15/24 15:05 16:13 19:37 Specimen Type ART ART ART Sample Site R Brach R Radial L Brach pH 7.22 L 7.27 L 7.30 L Bicarbonate Actual 34.3 H 33.5 H 31.3 H Total CO2 37 36 33 Base Excess 7 H 7 H 5 H O2 Saturation 76 L 89 L 86 L O2 % 10.0 30.0 30.0 ABG pCO2 83.8 H* 72.5 H* 64.4 H ABG pO2 51 L 67 L 59 L [place] Test Positive Positive Respiration Rate 12 12 O2 Delivery Device NRB avaps BiPAP Vent Mode Not entered Not entered Not entered Tidal Volume 550.0 Crit Call To/Read Back Yes Yes Blood Gas Notified Whom bb bb Blood Gas Notified Time 15:07:39 16:15:14 Clinical Comments Rhythm Strip Rhythm Strip: Sinus Rhythm Rate: 95 Ectopy: None Imaging Radiology Impression Chest X-Ray 01/15/24 15:30 IMPRESSION: Prominent consolidation throughout the left lung, grossly stable. Electronically Signed: Dave Hurd MD at 16:12 EDT , Brain CT 01/15/24 16:00 IMPRESSION: Chronic involutional changes of the brain. No change or acute abnormality. Electronically Signed: Dave Hurd MD at 16:23 EDT , Charges/Coding Visit Charges Inpatient E&M: 28040 Init Hosp L3
--- NOTE | 2024-01-16 10:48 | CASEMGMT ---
Addendum entered by Terri Tavarez 01/16/24 11:51: CC states that the pt is active with SN, PT, OT, & [facility] states that they were at the pt home last night, where they found the pt laying on the floor and called EMS. Dr. Wood states that the pt will eventually need a NIV set up. However, Dr. Wood states that he only suspects that the pt may have COPD and does not currently have a qualifying reason/Dx. [facility] NIV Intake Checklist sent to Dr. Wood. Dr. Wood requests this RN CM to schedule a f/u appt with his office for the pt to have this set up as an OP. TC to [facility] at this time. [facility] states that the earliest they can see the pt is Apr [address] Wood made aware and the MD states that he will try to push this appt up as possible. F/u appt added to pt DC instructions. Original Note: Readmission Note: Index: 12/30-01/07/24. Dx: Hypoxia, Acute hypercapnic RF Readmission: 01/15/24. Dx: Hypoxic & Hypercapnic RF On index admission, the pt was discharged home with [facility], oxygen through [facility], a new Rx for prednisone, a low fat and low cholesterol diet, and was advised to schedule an MRI with his PCP. This RN CM to pt room at this time. Pt is A&Ox4 and is able to answer all questions appropriately. Pt is resting comfortably in bed. Pt states that the [employer] company never came to my home. This RN CM made a referral in [facility], at this time, to Home Care. This RN CM questioned if the pt is active with their services as well as when the last time that they were at the pt home. Will follow. Pt states that he wore his oxygen accordingly with no issues. Per Blanco at [facility], the pt current order states 3lpm cont, 5lpm w/ exer via nc. Pt states that he was able to get his Rx for prednisone and take it as ordered (This was also verified on the RN CM DC F/u phone call). Pt states that he was not aware of the DC Diet recommendations given. Pt states that he did not follow up with his PCP to have an MRI completed. Per the hospitalist H&P, pt arrived at [facility] ED as a potential stroke alert as the pt was found on the floor at home. Pt was brought into the hospital via EMS. Pt was admitted to the ICU for further management. Moving forward, the pt states that he is willing to go to a SNF for further management after DC. Pt notified that SW will follow up and will provide the pt with a list of local in-network SNF to choose from. Pt states understanding and denies further questions or concerns from this RN CM.
--- NOTE | 2024-01-16 10:55 | NURSING ---
1054- patient O2 sats on 2L NC dropping to 87, increased O2 to 4L NC and recovered.
[2024-01-16 11:01] LABS: Bedside Glucose 90 mg/dL (74-106)
--- NOTE | 2024-01-16 12:20 | NURSING ---
patient O2 sats dropping to low 80s on 4L NC, increased to 6L NC and sats improved to low 90s
--- NOTE | 2024-01-16 15:31 | PCM.PN.HOSP ---
Reason for Visit Reason for Visit: Diagnoses Acute respiratory failure with hypoxia (01/15/24) Acute respiratory failure with hypercapnia (01/15/24) Subjective Subjective Patient was seen and examined today, at the time my examination he was on BiPAP, I talked briefly with pulmonary medicine about his care. Objective Data Objective Data Vital Signs: Vital Signs Temp Pulse Resp BP Pulse Ox O2 Del Method O2 Flow Rate 97.8 F 101 H 22 H 113/65 99 Nasal Cannula 6 01/16/24 14:00 01/16/24 14:28 01/16/24 14:28 01/16/24 14:00 01/16/24 14:28 01/16/24 14:28 01/16/24 14:28 FiO2 30 01/16/24 07:05 Oxygen Flow Rate (L/min) 6 Oxygen Delivery Method Nasal Cannula Weight: 67.3 kg Body Mass Index (BMI) 21.9 Intake & Output: Intake and Output for Last 24 Hours 01/14/24 01/15/24 01/16/24 23:59 23:59 23:59 Intake Total 355 / 355 110 / 110 Output Total 650 / 650 Balance 355 / 355 -540 / -540 Lab / Micro Data 01/16/24 04:00 01/16/24 04:00 Labs: Laboratory Results - last 24 hr 01/15/24 15:15: Sodium Cancelled, Potassium Cancelled, Chloride Cancelled, Carbon Dioxide Cancelled, Anion Gap Cancelled, BUN Cancelled, Creatinine Cancelled, Estim Creat Clear Calc Cancelled, Est GFR (MDRD) Af Amer Cancelled, Est GFR (MDRD) Non-Af Cancelled, BUN/Creatinine Ratio Cancelled, Glucose Cancelled, Lactic Acid 1.3, Calcium Cancelled, Total Bilirubin Cancelled, AST Cancelled, ALT Cancelled, Alkaline Phosphatase Cancelled, Total Creatine Kinase Cancelled, Troponin I High Sens Cancelled, Total Protein Cancelled, Albumin Cancelled, Globulin Cancelled, Albumin/Globulin Ratio Cancelled, Ethyl Alcohol < 3.0 01/15/24 15:34: Urine Color Yellow, Urine Clarity Clear, Urine pH 5.0, Ur Specific [place] 1.020, Urine Protein 30 H, Urine Glucose (UA) Normal, Urine Ketones Negative, Urine Occult Blood 10 H, Urine Nitrite Negative, Urine Bilirubin Negative, Urine Urobilinogen Normal, Ur Leukocyte Esterase Negative, Urine RBC 0 SEEN, Urine WBC 0-5 SEEN, Ur Squamous Epith Cells 0 SEEN, Urine Bacteria 2+, Hyaline Casts 5-10 SEEN, Urine Mucus 0 SEEN, Urine Opiates Screen POSITIVE H, Urine Methadone Screen NEGATIVE, Ur Barbiturates Screen NEGATIVE, Ur Phencyclidine Scrn NEGATIVE, Ur Amphetamines Screen NEGATIVE, MDMA (Ecstasy) Screen NEGATIVE, U Benzodiazepines Scrn NEGATIVE, Urine Cocaine Screen NEGATIVE, U Cannabinoids Screen NEGATIVE, Ur Drug Screen Comment 01/15/24 16:12: Sodium 141, Potassium 4.6, Chloride 109 H, Carbon Dioxide 27.0, Anion Gap 5, BUN 47 H, Creatinine 1.56 H, Estim Creat Clear Calc 38.30, Est GFR (MDRD) Af Amer 56 L, Est GFR (MDRD) Non-Af 46 L, BUN/Creatinine Ratio 30.1 H, Glucose 58 L, Calcium 8.5, Total Bilirubin 0.40, AST 54 H, ALT 38, Alkaline Phosphatase 178 H, Total Creatine Kinase 122, Troponin I High Sens 39, Total Protein 6.4, Albumin 2.2 L, Globulin 4.2, Albumin/Globulin Ratio 0.5 L 01/15/24 18:21: Troponin I High Sens 52 01/15/24 22:01: POC Glucose 95 01/16/24 04:00: WBC 6.6, RBC 4.14 L, Hgb 12.1 L, Hct 38.9 L, MCV 94.0, MCH 29.2, MCHC 31.1 L, RDW Std Deviation 57.0 H, RDW Coeff of Audi 16.7 H, Plt Count 174, MPV 10.9, Immature Gran % (Auto) 1.100 H, Neut % (Auto) 90.5 H, Lymph % (Auto) 6.5 L, [place] % (Auto) 1.7, Eos % (Auto) 0.0, Baso % (Auto) 0.2, Absolute Neuts (auto) 6.0, Absolute Lymphs (auto) 0.43 L, Nucleated RBC % 0, Sodium 140, Potassium 4.4, Chloride 105, Carbon Dioxide 30.0, Anion Gap 5, BUN 51 H, Creatinine 1.58 H, Estim Creat Clear Calc 37.86, Est GFR (MDRD) Af Amer 55 L, Est GFR (MDRD) Non-Af 46 L, BUN/Creatinine Ratio 32.3 H, Glucose 101, Calcium 8.9 01/16/24 10:43: POC Glucose 90 Micro: Microbiology 01/15/24 15:34 Mucosa - Nasopharyngeal SARS-CoV-2, Influenza & RSV (PCR) - Final ABG Data ABG results: ABG 01/15/24 01/15/24 16:13 19:37 Specimen Type ART ART Sample Site R Radial L Brach pH 7.27 L 7.30 L Bicarbonate Actual 33.5 H 31.3 H Total CO2 36 33 Base Excess 7 H 5 H O2 Saturation 89 L 86 L O2 % 30.0 30.0 ABG pCO2 72.5 H* 64.4 H ABG pO2 67 L 59 L Meliton Test Positive Positive Respiration Rate 12 12 O2 Delivery Device avaps BiPAP Vent Mode Not entered Not entered Tidal Volume 550.0 Crit Call To/Read Back Yes Blood Gas Notified Whom bb Blood Gas Notified Time 16:15:14 Clinical Comments Radiography Diagnostic Testing: Radiology Impression Chest X-Ray 01/15/24 15:30 IMPRESSION: Prominent consolidation throughout the left lung, grossly stable. Electronically Signed: Dave Hurd MD at 16:12 EDT , Brain CT 01/15/24 16:00 IMPRESSION: Chronic involutional changes of the brain. No change or acute abnormality. Electronically Signed: Dave Hurd MD at 16:23 EDT , Rhythm Strip Rhythm Strip: Sinus Rhythm Rate: 95 Ectopy: None Physical Exam Const no apparent distress Constitutional Narrative: Patient appears lethargic General Appearance: cooperative and well developed HEENT normocephalic, head/scalp atraumatic and moist oral mucous membranes Eyes PERRL, EOMs intact bilaterally and conjunctivae normal Neck supple, no JVD, thyroid normal and no carotid bruits General: trachea midline Resp normal respiratory effort, no retractions, no use of accessory muscles and clear to auscultation bilaterally Auscultation: Negative for rales, rhonchi or wheezes Cardio regular rate, regular rhythm, no murmurs, no rub and no gallops GI normal to inspection, nondistended, normoactive bowel sounds, soft to palpation, non-tender and non-distended Extremity no clubbing, cyanosis or edema Skin no rashes or lesions noted General Skin Exam: no breakdown Neuro CN's II-XII intact bilaterally, moves all extremities, no focal motor deficits and no sensory deficits noted Neuro Narrative: Patient appears lethargic Psych Psych Narrative: Patient is lethargic Assessment & Plan Assessment/Plan (1) Acute respiratory failure with hypoxia and hypercapnia: PLAN: Plan 1. Acute on chronic combined respiratory failure-pulmonary medicine is participating in his care, at the time my examination, patient was on BiPAP, pulmonary medicine stated that it would be hard to get the patient qualified for home PAP therapy due to lack of a diagnosis of COPD at this point. Continue to monitor pulse ox. #2 type 2 diabetes-patient's blood sugars will be monitored, sliding scale insulin will be given as needed #3 coronary artery disease-patient is on aspirin and Plavix #4 chronic congestive heart failure with reduced ejection fraction-patient's most recent echocardiogram showed an estimated EF of 20 to 25% #5 cardiomyopathy-type unknown, patient currently is on diuretics, beta-blockers, and losartan #6 chronic kidney disease stage IIIa secondary to type 2 diabetes-complicates care, management, recovery, and prognosis #7 left lung infiltrate-this looks similar to the infiltrate the patient had on his last series of chest x-rays during his previous admission in late December of this year. I discussed this with pulmonary medicine and they do not feel the patient needs to be on IV antibiotics at this time. The etiology of the left lung infiltrate is unknown at this time Total clinical time spent by myself addressing the patient's medical issues, reviewing all of his data, and collaborating with patient's care team: 50 minutes Charges/Coding Visit Charges Inpatient E&M: [id number] [facility] L3
--- NOTE | 2024-01-16 16:02 | CASEMGMT ---
SW met with patient. Introduced self and role at [facility]. Patient confirmed he is in agreement with going to a assisted facility. Patient also said his daughter Sara is looking into places. SW provided patient with a list of assisted facility providers including quality and resource use data and consistent with patient?s preferred geographic region, medical needs, and insurance network were provided from the [employer]. SW told patient that those are the facilities that take his insurance. Patient said he will tell his daughter. SW will follow up with patient and/or his daughter tomorrow. Chen HERNANDEZ
[2024-01-16] MEDS: Insulin Lispro 100 UNIT/ML INSULN.PEN SC ×3 (16:16→21:25)
[2024-01-16 16:36] LABS: Bedside Glucose 182 mg/dL (74-106)
[2024-01-16] MEDS: Gabapentin 100 MG Capsule PO (16:37)
[2024-01-16] MEDS: HYDROcodone Bitartrate/Apap 5/325 Tablet PO (17:55)
[2024-01-16] MEDS: Menthol/Lanolin/Calamine/Znox 113 GM Tube 1 APPLIC TOPICAL ×2 (17:55→21:25)
[2024-01-16 20:45] LABS: Bedside Glucose 201 mg/dL (74-106)
[2024-01-16] MEDS: Insulin Glargine-YFGN 100 UNIT/ML Pen 18 UNIT SC (21:24)
[2024-01-16] MEDS: Carvedilol 3.125 MG TABLET PO (21:27)
[2024-01-16] MEDS: Isosorbide DN 20 MG Tablet PO (21:28)
[2024-01-16] MEDS: guaiFENesin 1,200 MG Tablet 1200 MG PO (21:28)
[2024-01-16] MEDS: Atorvastatin Calcium 80 MG Tablet PO (21:28)
[2024-01-16] MEDS: Pantoprazole Sodium 40 MG in 0.9% Normal Saline (100mL MB+) 100 ML 330 MG IV (21:34)
[2024-01-17] VITALS (30 sets, daily range): BP systolic 70–122; BP diastolic 43–66; PULSE 84–102; RESP 12–30; TEMP 36.1–36.5; O2SAT 20–99; BMI 21.9
[2024-01-17] MEDS: Ipratropium/Albuterol Sulfate 3 ML AMPUL.NEB INHALATION ×6 (02:18→23:04)
[2024-01-17] MEDS: Menthol/Lanolin/Calamine/Znox 113 GM Tube 1 APPLIC TOPICAL ×3 (05:28→20:32)
[2024-01-17] MEDS: Enoxaparin 40 MG/0.4 ML Syringe SC (05:29)
[2024-01-17] MEDS: Isosorbide DN 20 MG Tablet PO (05:30)
[2024-01-17] MEDS: Insulin Lispro 100 UNIT/ML INSULN.PEN SC ×4 (05:58→11:50)
[2024-01-17 06:03] LABS: Bedside Glucose 150 mg/dL (74-106)
--- NOTE | 2024-01-17 07:30 | PCM.PN.INT ---
Assessment & Plan Assessment/Plan (1) Acute respiratory failure with hypoxia and hypercapnia: PLAN: Plan RECOMMENDATIONS: 1. Continue PAP therapy with naps and nightly. 2. Supplemental oxygen to maintain saturations at or above 90%. 3. Continue bronchodilators and steroids as ordered. Recommend prednisone taper at discharge. 4. Continue home Lasix regimen. 5. Continue appropriate DVT prophylaxis. 6. Recommend outpatient pulmonary follow-up after discharge. Recommend repeat chest imaging be completed in 6 weeks. 7. Baseline PFTs need to be obtained. 8. The patient is medically stable for transfer out of the intensive care unit. IMPRESSIONS: 1. Acute on chronic combined respiratory failure Most likely multifactorial in etiology. Please refer to my prior hospital note for recommendations. I suspect that the patient has underlying COPD which is suboptimally treated along with chronic CO2 retention, and it appears the patient was utilizing opiate pain medications. In addition, he is at high risk for aspiration, given a known history of esophageal stenosis requiring dilation. He was just hospitalized with concern for underlying pneumonia and has completed an antibiotic treatment course. The chest imaging noted at presentation appears similar to that completed in December. I have recommended that outpatient follow-up chest imaging be completed in 6 weeks. There is no need for additional antibiotics at the present time. While the patient would be a candidate for PAP therapy, he would first need to establish care in the pulmonary medicine office so that PFTs can be obtained. This was all recommended during his prior hospitalization, but it does not appear that a follow-up pulmonary appointment was ever made. Therefore, short of continuing PAP therapy, bronchodilators and steroids, I have no new additional recommendations. 2. History of tobacco dependency/coronary artery disease/heart failure with reduced ejection fraction/chronic kidney disease/diabetes mellitus/history of esophageal stenosis Complicates care, management, recovery and prognosis. Continue current supportive care as noted above. This note was generated with [employer] dictation software. It may contain incorrect words, spelling, and punctuation that were not noted in checking the note before signing. Subjective Subjective The patient was seen and examined at the bedside this morning. Events from the last 24 hours have been reviewed. The patient is currently afebrile, hemodynamically stable and maintaining appropriate oxygen saturations on 4 L/min via nasal cannula. The patient did wear PAP therapy for part of the night. Unfortunately, the patient does not have a qualifying diagnosis that would allow us to order him a noninvasive ventilator at the time of his discharge. No overnight issues were identified by the nursing staff. Objective Data Objective Data The patient's most recent lab work, culture data and imaging studies have all been personally reviewed. COVID, influenza and RSV PCR's were negative. Vital Signs: Vital Signs Temp Pulse Resp BP Pulse Ox O2 Del Method O2 Flow Rate 97 F L 99 17 116/65 98 Bi-pap 5 01/16/24 23:00 01/17/24 06:00 01/17/24 05:14 01/16/24 23:00 01/17/24 05:14 01/17/24 01:35 01/16/24 19:02 FiO2 30 01/17/24 05:14 Oxygen Flow Rate (L/min) 5 Oxygen Delivery Method Bi-pap Weight: 148 lb 6 oz Body Mass Index (BMI) 21.9 Intake & Output: Intake and Output for Last 24 Hours 01/15/24 01/16/24 01/17/24 23:59 23:59 23:59 Intake Total 355 / 355 110 / 110 Output Total 750 / 750 450 / 450 Balance 355 / 355 -640 / -640 -450 / -450 Lab / Micro Data Attestation: I reviewed the patient's lab results. 01/16/24 04:00 01/16/24 04:00 Labs: Laboratory Results - last 24 hr 01/16/24 10:43: POC Glucose 90 01/16/24 16:12: POC Glucose 182 H 01/16/24 20:25: POC Glucose 201 H 01/17/24 05:39: POC Glucose 150 H Micro: Microbiology 01/15/24 15:34 Mucosa - Nasopharyngeal SARS-CoV-2, Influenza & RSV (PCR) - Final Rhythm Strip Rhythm Strip: Sinus Rhythm Rate: 95 Ectopy: None Physical Exam Const alert and no apparent distress General Appearance: cooperative HEENT normocephalic, head/scalp atraumatic and moist oral mucous membranes Eyes PERRL, EOMs intact bilaterally and conjunctivae normal Neck supple General: trachea midline Chest inspection of chest normal Resp Auscultation: wheezes and diminished lung sounds; Negative for rales or rhonchi Cardio regular rate and regular rhythm GI normal to inspection, nondistended, normoactive bowel sounds Extremity General Extremity: edema; Negative for clubbing Skin no rashes or lesions noted Neuro CN's II-XII intact bilaterally, moves all extremities and no focal motor deficits Psych cooperative and affect normal Charges/Coding Visit Charges Inpatient E&M: 04065 Subs Hosp L2
[2024-01-17] MEDS: Gabapentin 100 MG Capsule PO ×3 (08:41→17:23)
[2024-01-17] MEDS: HYDROcodone Bitartrate/Apap 5/325 Tablet PO ×3 (08:52→21:07)
[2024-01-17] MEDS: guaiFENesin 1,200 MG Tablet 1200 MG PO ×2 (09:56→20:32)
[2024-01-17] MEDS: Tamsulosin HCl 0.4 MG Capsule PO (09:56)
[2024-01-17] MEDS: Clopidogrel Bisulfate 75 MG Tablet PO (09:56)
[2024-01-17] MEDS: Aspirin E.C. 81 MG Tablet PO (09:56)
[2024-01-17] MEDS: Furosemide 20 MG Tablet PO (09:56)
[2024-01-17] MEDS: Pantoprazole Sodium 40 MG Tablet PO ×2 (09:57→20:32)
[2024-01-17] MEDS: amLODIPine 5 MG Tablet PO (09:57)
[2024-01-17] MEDS: Sertraline 100 MG Tablet PO (09:57)
[2024-01-17] MEDS: Losartan Potassium 50 MG Tablet PO (09:57)
[2024-01-17] MEDS: Carvedilol 3.125 MG TABLET PO (09:58)
--- NOTE | 2024-01-17 10:05 | CPS ---
changed from AVAPS to BIPAP settings per Dr. Wood to facilitate SNF placement.
[2024-01-17 11:31] LABS: Bedside Glucose 194 mg/dL (74-106)
[2024-01-17] MEDS: 0.9% Normal Saline (1000mL) 1,000 ML 999 ML IV (13:25)
--- NOTE | 2024-01-17 13:51 | PCM.PN.HOSP ---
Reason for Visit Reason for Visit: Diagnoses Acute respiratory failure with hypoxia (01/15/24) Acute respiratory failure with hypercapnia (01/15/24) Subjective Subjective Patient was seen and examined today, he appeared stable for transfer to PCU this morning, early this afternoon his blood pressure declined and he was given IV fluids by critical care. I reviewed the patient's medications and stop several of the medications that were ordered in error on his med list. Objective Data Objective Data Vital Signs: Vital Signs Temp Pulse Resp BP Pulse Ox O2 Del Method O2 Flow Rate 97.4 F L 102 H 18 103/49 L 96 Bi-pap 4 01/17/24 11:00 01/17/24 11:06 01/17/24 11:06 01/17/24 11:00 01/17/24 13:20 01/17/24 13:20 01/17/24 11:00 FiO2 30 01/17/24 10:05 Oxygen Flow Rate (L/min) 4 Oxygen Delivery Method Bi-pap Weight: 67.302 kg Body Mass Index (BMI) 21.9 Intake & Output: Intake and Output for Last 24 Hours 01/15/24 01/16/24 01/17/24 23:59 23:59 23:59 Intake Total 355 / 355 110 / 110 230 / 230 Output Total 750 / 750 450 / 450 Balance 355 / 355 -640 / -640 -220 / -220 Lab / Micro Data 01/16/24 04:00 01/16/24 04:00 Labs: Laboratory Results - last 24 hr 01/16/24 16:12: POC Glucose 182 H 01/16/24 20:25: POC Glucose 201 H 01/17/24 05:39: POC Glucose 150 H 01/17/24 11:13: POC Glucose 194 H Micro: Microbiology 01/15/24 15:34 Mucosa - Nasopharyngeal SARS-CoV-2, Influenza & RSV (PCR) - Final Rhythm Strip Rhythm Strip: Sinus Rhythm Rate: 95 Ectopy: None Physical Exam Const alert, oriented x3, no apparent distress and average body habitus General Appearance: cooperative and well developed Orientation / Consciousness: awake, oriented to person, oriented to place and oriented to time HEENT normocephalic, head/scalp atraumatic and moist oral mucous membranes Eyes PERRL, EOMs intact bilaterally and conjunctivae normal Neck supple, no JVD, thyroid normal and no carotid bruits General: trachea midline Resp normal respiratory effort, no retractions, no use of accessory muscles and clear to auscultation bilaterally Auscultation: Negative for rales, rhonchi or wheezes Cardio regular rate, regular rhythm, S1 normal heart sound, S2 normal heart sound, no murmurs, no rub and no gallops GI normal to inspection, nondistended, normoactive bowel sounds, soft to palpation, non-tender and non-distended Extremity no clubbing, cyanosis or edema Skin no rashes or lesions noted General Skin Exam: no breakdown Neuro oriented x3, CN's II-XII intact bilaterally, moves all extremities, no focal motor deficits and no sensory deficits noted Sensorium / Orientation: awake and alert Speech: speech normal Psych affect normal Assessment & Plan Assessment/Plan (1) Acute respiratory failure with hypoxia and hypercapnia: PLAN: Plan 1. Acute on chronic combined respiratory failure-pulmonary medicine is participating in his care, at the time my examination, patient was on BiPAP, pulmonary medicine stated that it would be hard to get the patient qualified for home PAP therapy due to lack of a diagnosis of COPD at this point. Continue to monitor pulse ox. #2 type 2 diabetes-patient's blood sugars will be monitored, sliding scale insulin will be given as needed #3 coronary artery disease-patient is on aspirin and Plavix #4 chronic congestive heart failure with reduced ejection fraction-patient's most recent echocardiogram showed an estimated EF of 20 to 25% #5 cardiomyopathy-type unknown-due to hypotension, patient's diuretics are stopped, his carvedilol is being held #6 chronic kidney disease stage IIIa secondary to type 2 diabetes-complicates care, management, recovery, and prognosis #7 left lung infiltrate-this looks similar to the infiltrate the patient had on his last series of chest x-rays during his previous admission in late December of this year. I discussed this with pulmonary medicine and they do not feel the patient needs to be on IV antibiotics at this time. The etiology of the left lung infiltrate is unknown at this time #8 hypotension-as a result of medications, I stopped several of these medications which the patient was not on as an outpatient, fluid is being given to the patient, blood pressure will be monitored closely Total clinical time spent by myself addressing the patient's medical issues, reviewing all of his data, and collaborating with patient's care team: 35 minutes Charges/Coding Visit Charges Inpatient E&M: 71883 Subs Hosp L2
[2024-01-17 14:20] LABS: Bedside Glucose 153 mg/dL (74-106)
[2024-01-17 14:20] LABS: Absolute Lymphocyte Count 0.79 X10^3/uL (0.83-4.51); Absolute Neutrophil Count 8.1 X10^3/uL (2.0-7.7); Basophil# 0.01 X10^3/uL; Basophil% 0.1 % (0-1); Hematocrit 36.7 % (40-54); Hemoglobin 11.3 g/dL (13.0-16.5); Lymphocyte # 0.79 X10^3/ul (0.83-4.51); Lymphocyte % 8.3 % (19-41); Mean Corp Hgb Conc 30.8 g/dL (32-36); Mean Corpuscular Volume 94.3 fL (80-94); Monocyte# 0.46 X10^3/uL; Monocyte% 4.9 % (0-10); NRBC Flagged by Analyzer 0.2 % (0-5); Neutrophil # 8.12 X10^3/uL (2.7-7.7); Neutrophil % 85.6 % (47-70); Platelet Count 151 K/mm3 (150-450); RBC Distribution Width CV 17.2 % (11.6-14.6); RBC Distribution Width SD 58.8 fl (35.1-43.9); Red Blood Count 3.89 M/mm3 (4.6-6.2); White Blood Count 9.5 K/mm3 (4.4-11.0)
[2024-01-17] MEDS: 0.9% Saline Lock 10 ML Syringe IV ×2 (14:46→18:35)
[2024-01-17 14:47] LABS: ALB/GLOB Ratio 0.6 RATIO (0.9-2.4); AST(SGOT) 53 U/L (15-37); Alanine Aminotransfer ALT/SGPT 37 U/L (16-61); Alkaline Phosphatase 223 U/L (45-117); Anion Gap 4 (5-15); BUN 53 mg/dL (7-18); BUN/Creat Ratio 28.3 RATIO (10-20); Calcium,Total 8.8 mg/dL (8.5-10.1); Chloride 107 mmol/L (98-107); Creatinine, Serum 1.87 mg/dL (0.70-1.30); EST Glomerular Filtration Rate 37 mL/min (>60); Est Glom Filt Rate - Afr Amer 45 mL/min (>60); Estimated Creatinine Clearance 31.99 ml/min; Globulin 3.3 g/dL (2.2-4.2); Glucose 140 mg/dL (74-106); Potassium 4.2 mmol/L (3.5-5.1); Protein, Total 5.3 g/dL (6.4-8.2); Sodium Level 138 mmol/L (136-145)
--- NOTE | 2024-01-17 14:54 | NURSING ---
1300 Pt noted to have decreased BP 86/48. Pt sitting in chair. No complaints. Continued to monitor BP 1304 BP 72/38. Pt lifted back to bed by staff and placed in Trendelenburg. Pt placed on Bipap. Md ordered 1L NS bolus. CMP, CBC ordered. Lab tonya. 1400 BP: 101/56 1430 Pt complaining of generalized pain. Pt repositioned 1450 Pt given pain medication per order
--- NOTE | 2024-01-17 15:30 | CASEMGMT ---
SW went to meet with patient about discharge plan. However, per physician there has been a slight change in patient's medical condition and he is on continuous bipap. JESSIKA and REGLA GUTIERREZ will continue to follow and assist with d/c planning. Chen HERNANDEZ
[2024-01-17 17:35] LABS: Bedside Glucose 91 mg/dL (74-106)
[2024-01-17] MEDS: 0.9% Normal Saline (500mL Bag) 500 ML 999 ML IV (18:35)
[2024-01-17] MEDS: Atorvastatin Calcium 80 MG Tablet PO (20:31)
[2024-01-17 21:17] LABS: Bedside Glucose 146 mg/dL (74-106)
[2024-01-17] MEDS: Insulin Glargine-YFGN 100 UNIT/ML Pen 18 UNIT SC (22:47)
[2024-01-18] VITALS (33 sets, daily range): BP systolic 80–126; BP diastolic 46–72; PULSE 88–100; RESP 12–34; TEMP 36.1–37.2; O2SAT 90–96; BMI 21.9; BMI 22.0
[2024-01-18] MEDS: Ipratropium/Albuterol Sulfate 3 ML AMPUL.NEB INHALATION ×6 (02:43→23:10)
[2024-01-18] MEDS: Enoxaparin 40 MG/0.4 ML Syringe SC (04:57)
[2024-01-18] MEDS: Menthol/Lanolin/Calamine/Znox 113 GM Tube 1 APPLIC TOPICAL ×3 (04:58→20:25)
--- NOTE | 2024-01-18 06:38 | RAD_ITS ---
STUDY: X-RAY CHEST REASON FOR EXAM: Male, 78 years old. Respiratory Failure TECHNIQUE: Single AP portable view of the chest. COMPARISON: Comparison is made with prior study January 15, 2024. FINDINGS: EKG electrodes are seen. Persistent infiltrate in the left hemithorax although there has been mild degree of improvement. Since prior study, there has been progressive increased markings in the right lung suggestive of early infiltrates. Blunting of both costophrenic angles. Sternal cerclage wires and vascular clips are present from a prior sternotomy and coronary artery bypass graft procedure (CABG). Cardiomegaly. Normal mediastinum and loco. Normal visualized pulmonary arteries. Normal visualized aortic arch and descending thoracic aorta. Normal visualized thoracic spine. There is degenerative osteoarthritis of the bilateral shoulders. There is no demonstrated abnormality of the visualized soft tissue structures of the upper abdomen. RAD/Chest 1 View (Portable) IMPRESSION: Improved aeration in the left hemithorax with the new infiltrates in the right lung. There is blunting of both costophrenic angles. Electronically Signed: Randolph Joyce MD at 8:20 EDT ,
--- NOTE | 2024-01-18 06:38 | PCM.PN.INT ---
Assessment & Plan Assessment/Plan (1) Acute respiratory failure with hypoxia and hypercapnia: PLAN: Plan RECOMMENDATIONS: 1. Continue PAP therapy with naps and nightly. 2. Supplemental oxygen to maintain saturations at or above 90%. 3. Continue bronchodilators and steroids as ordered. Recommend prednisone taper at discharge. 4. Hold antihypertensives. Proceed with gentle diuresis today as tolerated by hemodynamics and renal function. 5. Continue appropriate DVT prophylaxis. 6. Recommend outpatient pulmonary follow-up after discharge. Recommend repeat chest imaging be completed in 6 weeks. 7. Baseline PFTs need to be obtained. 8. Obtain follow-up chest x-ray today and BNP. IMPRESSIONS: 1. Acute on chronic combined respiratory failure Most likely multifactorial in etiology. Please refer to my prior hospital note for recommendations. I suspect that the patient has underlying COPD which is suboptimally treated along with chronic CO2 retention, and it appears the patient was utilizing opiate pain medications. In addition, he is at high risk for aspiration, given a known history of esophageal stenosis requiring dilation. He was just hospitalized with concern for underlying pneumonia and has completed an antibiotic treatment course. The chest imaging noted at presentation appears similar to that completed in December. I have recommended that outpatient follow-up chest imaging be completed in 6 weeks. There is no need for additional antibiotics at the present time. While the patient would be a candidate for PAP therapy, he would first need to establish care in the pulmonary medicine office so that PFTs can be obtained. This was all recommended during his prior hospitalization, but it does not appear that a follow-up pulmonary appointment was ever made. Plan to proceed with attempted gentle diuresis today. 2. History of tobacco dependency/coronary artery disease/heart failure with reduced ejection fraction/chronic kidney disease/diabetes mellitus/history of esophageal stenosis Complicates care, management, recovery and prognosis. Continue current supportive care as noted above. This note was generated with [employer] dictation software. It may contain incorrect words, spelling, and punctuation that were not noted in checking the note before signing. Subjective Subjective The patient was seen and examined at the bedside this morning. Events from the last 24 hours have been reviewed. The patient is currently afebrile, hemodynamically stable and maintaining appropriate oxygen saturations on BiPAP. Yesterday, the patient was reportedly given his home antihypertensives and subsequently developed hypotension, which required bolus fluid resuscitation. Overnight, the nursing staff reported that the patient has been largely BiPAP dependent and desaturates when PAP therapy is removed. His blood pressure is otherwise stable. The patient is mentating appropriately and denies any overt shortness of breath. Objective Data Objective Data The patient's most recent lab work, culture data and imaging studies have all been personally reviewed. COVID, influenza and RSV PCR's were negative. Surface echocardiogram from December 2023 demonstrated an ejection fraction of 20 to 25% with stage I diastolic dysfunction. Vital Signs: Vital Signs Temp Pulse Resp BP Pulse Ox O2 Del Method O2 Flow Rate 98.2 F 91 18 117/57 L 93 Bi-pap 30 01/18/24 06:00 01/18/24 06:00 01/18/24 06:00 01/18/24 06:00 01/18/24 06:00 01/18/24 06:00 01/17/24 19:00 FiO2 30 01/18/24 06:00 Oxygen Flow Rate (L/min) 30 Oxygen Delivery Method Bi-pap Weight: 149 lb 0.765 oz Body Mass Index (BMI) 22.0 Intake & Output: Intake and Output for Last 24 Hours 01/16/24 01/17/24 01/18/24 23:59 23:59 23:59 Intake Total 110 / 110 1850 / 1850 Output Total 750 / 750 1200 / 2100 1300 / 1300 Balance -640 / -640 650 / -250 -1300 / -1300 Lab / Micro Data Attestation: I reviewed the patient's lab results. 01/18/24 07:06 01/18/24 07:06 Labs: Laboratory Results - last 24 hr 01/17/24 11:13: POC Glucose 194 H 01/17/24 13:43: POC Glucose 153 H 01/17/24 14:10: WBC 9.5, RBC 3.89 L, Hgb 11.3 L, Hct 36.7 L, MCV 94.3 H, MCH 29.0, MCHC 30.8 L, RDW Std Deviation 58.8 H, RDW Coeff of Audi 17.2 H, Plt Count 151, MPV 10.0, Immature Gran % (Auto) 1.100 H, Neut % (Auto) 85.6 H, Lymph % (Auto) 8.3 L, [place] % (Auto) 4.9, Eos % (Auto) 0.0, Baso % (Auto) 0.1, Absolute Neuts (auto) 8.1 H, Absolute Lymphs (auto) 0.79 L, Nucleated RBC % 0.2, Sodium 138, Potassium 4.2, Chloride 107, Carbon Dioxide 27.0, Anion Gap 4 L, BUN 53 H, Creatinine 1.87 H, Estim Creat Clear Calc 31.99, Est GFR (MDRD) Af Amer 45 L, Est GFR (MDRD) Non-Af 37 L, BUN/Creatinine Ratio 28.3 H, Glucose 140 H, Calcium 8.8, Total Bilirubin 0.40, AST 53 H, ALT 37, Alkaline Phosphatase 223 H, Total Protein 5.3 L, Albumin 2.0 L, Globulin 3.3, Albumin/Globulin Ratio 0.6 L 01/17/24 16:52: POC Glucose 91 01/17/24 20:59: POC Glucose 146 H Micro: Microbiology 01/15/24 15:34 Mucosa - Nasopharyngeal SARS-CoV-2, Influenza & RSV (PCR) - Final Rhythm Strip Rhythm Strip: Sinus Rhythm Rate: 95 Ectopy: None Physical Exam Const alert and no apparent distress Constitutional Narrative: BiPAP mask in place. General Appearance: cooperative HEENT normocephalic, head/scalp atraumatic and moist oral mucous membranes General Ear: hearing grossly impaired Eyes PERRL, EOMs intact bilaterally and conjunctivae normal Neck supple General: trachea midline Chest inspection of chest normal Resp Auscultation: rales, wheezes and diminished lung sounds; Negative for rhonchi Cardio regular rate and regular rhythm GI normal to inspection, nondistended, normoactive bowel sounds Extremity General Extremity: edema; Negative for clubbing Skin no rashes or lesions noted Neuro CN's II-XII intact bilaterally, moves all extremities and no focal motor deficits Psych cooperative and affect normal Charges/Coding Visit Charges Inpatient E&M: 28319 Subs Hosp L3
[2024-01-18 07:21] LABS: Absolute Lymphocyte Count 0.74 X10^3/uL (0.83-4.51); Absolute Neutrophil Count 11.3 X10^3/uL (2.0-7.7); Basophil# 0.01 X10^3/uL; Basophil% 0.1 % (0-1); Hematocrit 39.8 % (40-54); Hemoglobin 12.3 g/dL (13.0-16.5); Lymphocyte # 0.74 X10^3/ul (0.83-4.51); Lymphocyte % 5.8 % (19-41); Mean Corp Hgb Conc 30.9 g/dL (32-36); Mean Corpuscular Hgb 28.9 pg (27.0-32.0); Mean Corpuscular Volume 93.4 fL (80-94); Mean Platelet Vol. 10.2 fl (6.2-12.0); Monocyte# 0.46 X10^3/uL; Monocyte% 3.6 % (0-10); NRBC Flagged by Analyzer 0 % (0-5); Neutrophil # 11.33 X10^3/uL (2.7-7.7); Neutrophil % 89.3 % (47-70); Platelet Count 164 K/mm3 (150-450); RBC Distribution Width CV 17.1 % (11.6-14.6); RBC Distribution Width SD 58.3 fl (35.1-43.9); Red Blood Count 4.26 M/mm3 (4.6-6.2); White Blood Count 12.7 K/mm3 (4.4-11.0)
[2024-01-18] MEDS: Furosemide 20 MG/2 ML VIAL IV ×2 (07:41→09:44)
[2024-01-18 07:52] LABS: Anion Gap 6 (5-15); BUN 48 mg/dL (7-18); BUN/Creat Ratio 32.9 RATIO (10-20); Calcium,Total 9.1 mg/dL (8.5-10.1); Chloride 104 mmol/L (98-107); Creatinine, Serum 1.46 mg/dL (0.70-1.30); EST Glomerular Filtration Rate 50 mL/min (>60); Est Glom Filt Rate - Afr Amer 60 mL/min (>60); Estimated Creatinine Clearance 41.16 ml/min; Glucose 108 mg/dL (74-106); Potassium 4.3 mmol/L (3.5-5.1); Sodium Level 137 mmol/L (136-145)
[2024-01-18 08:06] LABS: Bedside Glucose 102 mg/dL (74-106)
[2024-01-18] MEDS: Sertraline 100 MG Tablet PO (09:42)
[2024-01-18] MEDS: HYDROcodone Bitartrate/Apap 5/325 Tablet PO ×2 (09:42→20:31)
[2024-01-18] MEDS: Tamsulosin HCl 0.4 MG Capsule PO (09:42)
[2024-01-18] MEDS: Clopidogrel Bisulfate 75 MG Tablet PO (09:42)
[2024-01-18] MEDS: guaiFENesin 1,200 MG Tablet 1200 MG PO ×2 (09:42→20:26)
[2024-01-18] MEDS: Aspirin E.C. 81 MG Tablet PO (09:42)
[2024-01-18] MEDS: Pantoprazole Sodium 40 MG Tablet PO ×2 (09:42→20:26)
[2024-01-18] MEDS: 0.9% Saline Lock 10 ML Syringe IV (09:44)
[2024-01-18] MEDS: Gabapentin 100 MG Capsule PO ×3 (09:44→16:38)
--- NOTE | 2024-01-18 10:48 | CASEMGMT ---
Updates sent to [facility] via [employer] regarding pt status at this time.
[2024-01-18 11:45] LABS: Bedside Glucose 180 mg/dL (74-106)
[2024-01-18] MEDS: Insulin Lispro 100 UNIT/ML INSULN.PEN SC ×2 (12:55→20:33)
--- NOTE | 2024-01-18 13:37 | PCM.PN.HOSP ---
Reason for Visit Reason for Visit: Diagnoses Acute respiratory failure with hypoxia (01/15/24) Acute respiratory failure with hypercapnia (01/15/24) Subjective Subjective Saw patient at bedside this morning. Patient was on continuous BiPAP yesterday afternoon and overnight. Chest x-ray obtained by environmental remediation engineer this morning showed ongoing left-sided disease with some concern for mildly worsened volume overload. Was given 2 doses of IV Lasix this morning with good urine output. Patient was then transitioned to Airvo. Patient was on Airvo when I saw him midmorning. He had just moved over to the bedside chair at that point. He had very mild increased work of breathing noted but was otherwise conversing normally. He reported shortness of breath with mild exertion but no shortness of breath at rest. Denied any cough or sputum production. No other new concerns at this time. Objective Data Objective Data Vital Signs: Vital Signs Temp Pulse Resp BP Pulse Ox O2 Del Method O2 Flow Rate 97.2 F L 97 27 H 90/49 L 95 Airvo 45 01/18/24 12:00 01/18/24 12:00 01/18/24 12:00 01/18/24 12:00 01/18/24 12:00 01/18/24 12:00 01/18/24 12:00 FiO2 55 01/18/24 12:00 Oxygen Flow Rate (L/min) 45 Oxygen Delivery Method Airvo Weight: 67.607 kg Body Mass Index (BMI) 22.0 Intake & Output: Intake and Output for Last 24 Hours 01/16/24 01/17/24 01/18/24 23:59 23:59 23:59 Intake Total 110 / 110 1850 / 1850 Output Total 750 / 750 1200 / 2100 1900 / 1900 Balance -640 / -640 650 / -250 -1900 / -1900 Lab / Micro Data 01/18/24 07:06 01/18/24 07:06 Labs: Laboratory Results - last 24 hr 01/17/24 13:43: POC Glucose 153 H 01/17/24 14:10: WBC 9.5, RBC 3.89 L, Hgb 11.3 L, Hct 36.7 L, MCV 94.3 H, MCH 29.0, MCHC 30.8 L, RDW Std Deviation 58.8 H, RDW Coeff of Audi 17.2 H, Plt Count 151, MPV 10.0, Immature Gran % (Auto) 1.100 H, Neut % (Auto) 85.6 H, Lymph % (Auto) 8.3 L, [place] % (Auto) 4.9, Eos % (Auto) 0.0, Baso % (Auto) 0.1, Absolute Neuts (auto) 8.1 H, Absolute Lymphs (auto) 0.79 L, Nucleated RBC % 0.2, Sodium 138, Potassium 4.2, Chloride 107, Carbon Dioxide 27.0, Anion Gap 4 L, BUN 53 H, Creatinine 1.87 H, Estim Creat Clear Calc 31.99, Est GFR (MDRD) Af Amer 45 L, Est GFR (MDRD) Non-Af 37 L, BUN/Creatinine Ratio 28.3 H, Glucose 140 H, Calcium 8.8, Total Bilirubin 0.40, AST 53 H, ALT 37, Alkaline Phosphatase 223 H, Total Protein 5.3 L, Albumin 2.0 L, Globulin 3.3, Albumin/Globulin Ratio 0.6 L 01/17/24 16:52: POC Glucose 91 01/17/24 20:59: POC Glucose 146 H 01/18/24 07:06: WBC 12.7 H, RBC 4.26 L, Hgb 12.3 L, Hct 39.8 L, MCV 93.4, MCH 28.9, MCHC 30.9 L, RDW Std Deviation 58.3 H, RDW Coeff of Audi 17.1 H, Plt Count 164, MPV 10.2, Immature Gran % (Auto) 1.200 H, Neut % (Auto) 89.3 H, Lymph % (Auto) 5.8 L, [place] % (Auto) 3.6, Eos % (Auto) 0.0, Baso % (Auto) 0.1, Absolute Neuts (auto) 11.3 H, Absolute Lymphs (auto) 0.74 L, Nucleated RBC % 0, Sodium 137, Potassium 4.3, Chloride 104, Carbon Dioxide 27.0, Anion Gap 6, BUN 48 H, Creatinine 1.46 H, Estim Creat Clear Calc 41.16, Est GFR (MDRD) Af Amer 60, Est GFR (MDRD) Non-Af 50 L, BUN/Creatinine Ratio 32.9 H, Glucose 108 H, Calcium 9.1, B-Natriuretic Peptide 352.0 H 01/18/24 07:41: POC Glucose 102 01/18/24 11:27: POC Glucose 180 H Micro: Microbiology 01/15/24 15:34 Mucosa - Nasopharyngeal SARS-CoV-2, Influenza & RSV (PCR) - Final Radiography Diagnostic Testing: Radiology Impression Chest X-Ray 01/18/24 06:38 IMPRESSION: Improved aeration in the left hemithorax with the new infiltrates in the right lung. There is blunting of both costophrenic angles. Electronically Signed: Randolph Joyce MD at 8:20 EDT , Rhythm Strip Rhythm Strip: Sinus Rhythm Rate: 95 Ectopy: None Physical Exam Const alert, oriented x3, no apparent distress and average body habitus Constitutional Narrative: Elderly male, chronically ill-appearing, mild increased work of breathing noted, otherwise sitting up comfortably in bedside chair, conversing normally. General Appearance: cooperative and comfortable HEENT normocephalic, head/scalp atraumatic, hearing grossly normal bilaterally and nasal mucous membranes and turbinates normal Eyes PERRL, EOMs intact bilaterally and conjunctivae normal Neck full ROM Chest inspection of chest normal Resp Resp Narrative: Mild increased work of breathing noted on Airvo at 55% FiO2. Diminished breath sounds bilaterally throughout, worse on left. No wheezing noted. Cardio regular rate, regular rhythm, no murmurs and peripheral pulses 2+ throughout GI normal to inspection, nondistended, normoactive bowel sounds, soft to palpation, non-tender and non-distended Back/Spine normal ROM Extremity normal to inspection Extremity Narrative: +1-2 lower extremity pitting edema bilaterally. Skin no rashes or lesions noted Neuro no focal motor deficits and no sensory deficits noted Speech: speech normal Psych mental status grossly normal Assessment & Plan Assessment/Plan (1) Acute respiratory failure with hypoxia and hypercapnia: (2) COPD exacerbation: (3) CHF exacerbation: QUALIFIERS: Heart failure type: systolic Qualified Code(s): I50.23 - Acute on chronic systolic (congestive) heart failure PLAN: Plan Patient is a 78-year-old male who presented to [facility] ED on 01/15/2024 with altered mental status. 1. 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 Porcelain En[employer] Sprayer following. Presented with altered mental status, was found to be hypoxic and hypercapnic on arrival. Improved with BiPAP, did not require intubation. Was on 4 L nasal cannula prior to this admission. Was recently hospitalized here and treated for left-sided pneumonia. Chest x-ray on admit showed ongoing left lung opacity, with otherwise unchanged. Patient has history of combined heart failure; recent echo on 12/30 showed EF 20 to 25% with severe generalized LV systolic dysfunction as well as moderately severe global RV systolic dysfunction. Patient was started on steroids and scheduled DuoNebs on admission for suspected COPD exacerbation. Antibiotics were held given patient recently completed antibiotic course, and patient was afebrile and not infectious appearing. Patient fortunately had worsening oxygenation status on after 01/16 for unclear reason requiring continuous BiPAP. Given 2 doses of IV Lasix on morning of 01/17 and transitioned to Airvo. Hopeful that patient can be weaned back to low-flow nasal cannula but patient is very tenuous given his combined heart failure with worsening right heart function and ongoing left lung opacity that may have been due to pneumonia but notably malignancy could not be ruled out. Continue steroids and DuoNebs for COPD exacerbation. Appreciate further environmental remediation engineer recs. 2. Acute on chronic debility ? PT/OT/case management following. Patient lives at home with and initial plan was to return home but patient has worsening weakness from baseline and there is significant concern about him returning home. Planning for SNF on discharge at this time. Chronic medical conditions: ? History of CAD s/p stenting, hypertension, hyperlipidemia: Home blood pressure medications on hold given mild hypotension in setting of heart failure as noted above. Continue home statin. Continue home aspirin and Plavix. ? Type 2 diabetes mellitus with neuropathy: Blood sugars stable since admission. Continue insulin glargine 18 units at night and sign scale insulin with meals while inpatient. ? GERD: Continue home PPI. ? Depression: Continue home sertraline. ? BPH with obstructive symptoms: Continue home Flomax. DVT prophylaxis: Lovenox CODE STATUS: Full code, verified Expected disposition: [facility] Total clinical time spent by myself addressing the patient's medical issues, reviewing all the data, and collaborating with patient's care team: 35 minutes. Charges/Coding Visit Charges Inpatient E&M: 08165 Subs Hosp L2
[2024-01-18 16:59] LABS: Bedside Glucose 120 mg/dL (74-106)
[2024-01-18] MEDS: Atorvastatin Calcium 80 MG Tablet PO (20:26)
[2024-01-18] MEDS: Insulin Glargine-YFGN 100 UNIT/ML Pen 18 UNIT SC (20:33)
[2024-01-18 20:53] LABS: Bedside Glucose 192 mg/dL (74-106)
[2024-01-19] VITALS (27 sets, daily range): BP systolic 93–127; BP diastolic 49–86; PULSE 79–102; RESP 12–31; TEMP 36.2–36.9; O2SAT 90–98; BMI 21.8
[2024-01-19] MEDS: Ipratropium/Albuterol Sulfate 3 ML AMPUL.NEB INHALATION ×6 (02:38→22:46)
[2024-01-19] MEDS: Enoxaparin 40 MG/0.4 ML Syringe SC (06:15)
[2024-01-19] MEDS: Menthol/Lanolin/Calamine/Znox 113 GM Tube 1 APPLIC TOPICAL ×3 (06:15→21:47)
--- NOTE | 2024-01-19 07:28 | PCM.PN.INT ---
Assessment & Plan Assessment/Plan (1) Acute respiratory failure with hypoxia and hypercapnia: PLAN: Plan RECOMMENDATIONS: 1. Continue PAP therapy with naps and nightly. 2. Supplemental oxygen to maintain saturations at or above 90%. 3. Continue bronchodilators and steroids as ordered. Recommend prednisone taper at discharge. 4. Okay to resume home Lasix regimen. 5. Continue appropriate DVT prophylaxis. 6. Recommend outpatient pulmonary follow-up after discharge. Recommend repeat chest imaging be completed in 6 weeks. 7. Baseline PFTs need to be obtained. IMPRESSIONS: 1. Acute on chronic combined respiratory failure Most likely multifactorial in etiology. Please refer to my prior hospital note for recommendations. I suspect that the patient has underlying COPD which is suboptimally treated along with chronic CO2 retention, and it appears the patient was utilizing opiate pain medications. In addition, he is at high risk for aspiration, given a known history of esophageal stenosis requiring dilation. He was just hospitalized with concern for underlying pneumonia and has completed an antibiotic treatment course. The chest imaging noted at presentation appears similar to that completed in December. I have recommended that outpatient follow-up chest imaging be completed in 6 weeks. There is no need for additional antibiotics at the present time. While the patient would be a candidate for PAP therapy, he would first need to establish care in the pulmonary medicine office so that PFTs can be obtained. This was all recommended during his prior hospitalization, but it does not appear that a follow-up pulmonary appointment was ever made. 2. History of tobacco dependency/coronary artery disease/heart failure with reduced ejection fraction/chronic kidney disease/diabetes mellitus/history of esophageal stenosis Complicates care, management, recovery and prognosis. Continue current supportive care as noted above. This note was generated with [employer] dictation software. It may contain incorrect words, spelling, and punctuation that were not noted in checking the note before signing. Subjective Subjective The patient was seen and examined at the bedside this morning. Events from the last 24 hours have been reviewed. The patient is currently afebrile, hemodynamically stable and maintaining appropriate oxygen saturations on heated high flow with an FiO2 requirement of 40%. However, the patient is currently maintaining oxygen saturations in the high 90s. Objective Data Objective Data The patient's most recent lab work, culture data and imaging studies have all been personally reviewed. COVID, influenza and RSV PCR's were negative. Surface echocardiogram from December 2023 demonstrated an ejection fraction of 20 to 25% with stage I diastolic dysfunction. Vital Signs: Vital Signs Temp Pulse Resp BP Pulse Ox O2 Del Method O2 Flow Rate 97.2 F L 87 21 H 123/65 H 97 Bi-pap 45 01/19/24 05:00 01/19/24 07:00 01/19/24 07:00 01/19/24 07:00 01/19/24 07:00 01/19/24 07:00 01/19/24 03:00 FiO2 40 01/19/24 07:00 Oxygen Flow Rate (L/min) 45 Oxygen Delivery Method Bi-pap Weight: 147 lb 4 oz Body Mass Index (BMI) 21.8 Intake & Output: Intake and Output for Last 24 Hours 01/17/24 01/18/24 01/19/24 23:59 23:59 23:59 Intake Total 1850 / 1850 200 / 200 Output Total 1200 / 2100 2300 / 2400 200 / 200 Balance 650 / -250 -2300 / -2200 0 / 0 Lab / Micro Data Attestation: I reviewed the patient's lab results. 01/19/24 08:12 01/19/24 08:12 Labs: Laboratory Results - last 24 hr 01/18/24 07:06: Sodium 137, Potassium 4.3, Chloride 104, Carbon Dioxide 27.0, Anion Gap 6, BUN 48 H, Creatinine 1.46 H, Estim Creat Clear Calc 41.16, Est GFR (MDRD) Af Amer 60, Est GFR (MDRD) Non-Af 50 L, BUN/Creatinine Ratio 32.9 H, Glucose 108 H, Calcium 9.1, B-Natriuretic Peptide 352.0 H 01/18/24 07:41: POC Glucose 102 01/18/24 11:27: POC Glucose 180 H 01/18/24 16:38: POC Glucose 120 H 01/18/24 20:32: POC Glucose 192 H Micro: Microbiology 01/15/24 15:34 Mucosa - Nasopharyngeal SARS-CoV-2, Influenza & RSV (PCR) - Final Radiography Diagnostic Testing: Radiology Impression Chest X-Ray 01/18/24 06:38 IMPRESSION: Improved aeration in the left hemithorax with the new infiltrates in the right lung. There is blunting of both costophrenic angles. Electronically Signed: Randolph Joyce MD at 8:20 EDT , Rhythm Strip Rhythm Strip: Sinus Rhythm Rate: 95 Ectopy: None Physical Exam Const alert and no apparent distress Constitutional Narrative: Sitting in bedside recliner. General Appearance: cooperative HEENT normocephalic, head/scalp atraumatic and moist oral mucous membranes General Ear: hearing grossly impaired Eyes PERRL, EOMs intact bilaterally and conjunctivae normal Neck supple General: trachea midline Chest inspection of chest normal Resp Auscultation: rales and diminished lung sounds; Negative for rhonchi or wheezes Cardio regular rate and regular rhythm GI normal to inspection, nondistended, normoactive bowel sounds Extremity General Extremity: edema; Negative for clubbing Skin no rashes or lesions noted Neuro CN's II-XII intact bilaterally, moves all extremities and no focal motor deficits Psych Mood & Affect: flat affect Charges/Coding Visit Charges Inpatient E&M: 24137 Subs Hosp L2
[2024-01-19] MEDS: Pantoprazole Sodium 40 MG Tablet PO ×2 (07:35→21:48)
[2024-01-19] MEDS: Sertraline 100 MG Tablet PO (07:35)
[2024-01-19] MEDS: guaiFENesin 1,200 MG Tablet 1200 MG PO ×2 (07:35→21:48)
[2024-01-19] MEDS: Aspirin E.C. 81 MG Tablet PO (07:35)
[2024-01-19] MEDS: Tamsulosin HCl 0.4 MG Capsule PO (07:35)
[2024-01-19] MEDS: Clopidogrel Bisulfate 75 MG Tablet PO (07:35)
[2024-01-19] MEDS: Gabapentin 100 MG Capsule PO ×3 (07:36→17:18)
[2024-01-19 07:42] LABS: Bedside Glucose 58 mg/dL (74-106)
[2024-01-19 08:12] LABS: Bedside Glucose 92 mg/dL (74-106)
[2024-01-19 08:25] LABS: Absolute Lymphocyte Count 1.57 X10^3/uL (0.83-4.51); Absolute Neutrophil Count 8.2 X10^3/uL (2.0-7.7); Basophil# 0.02 X10^3/uL; Basophil% 0.2 % (0-1); Eosinophil# 0.05 X10^3/uL; Eosinophils% 0.5 % (0-5); Hematocrit 41.6 % (40-54); Lymphocyte # 1.57 X10^3/ul (0.83-4.51); Lymphocyte % 14.9 % (19-41); Mean Corp Hgb Conc 31.3 g/dL (32-36); Mean Corpuscular Hgb 29.2 pg (27.0-32.0); Mean Corpuscular Volume 93.5 fL (80-94); Monocyte# 0.54 X10^3/uL; Monocyte% 5.1 % (0-10); NRBC Flagged by Analyzer 0 % (0-5); Neutrophil # 8.23 X10^3/uL (2.7-7.7); Neutrophil % 78.3 % (47-70); Platelet Count 136 K/mm3 (150-450); RBC Distribution Width CV 17.1 % (11.6-14.6); RBC Distribution Width SD 58.5 fl (35.1-43.9); Red Blood Count 4.45 M/mm3 (4.6-6.2); White Blood Count 10.5 K/mm3 (4.4-11.0)
[2024-01-19 09:00] LABS: Anion Gap 6 (5-15); BUN 48 mg/dL (7-18); BUN/Creat Ratio 29.4 RATIO (10-20); Calcium,Total 9.1 mg/dL (8.5-10.1); Chloride 105 mmol/L (98-107); Creatinine, Serum 1.63 mg/dL (0.70-1.30); EST Glomerular Filtration Rate 44 mL/min (>60); Est Glom Filt Rate - Afr Amer 53 mL/min (>60); Estimated Creatinine Clearance 36.42 ml/min; Glucose 84 mg/dL (74-106); Potassium 3.9 mmol/L (3.5-5.1); Sodium Level 140 mmol/L (136-145)
--- NOTE | 2024-01-19 10:07 | CASEMGMT ---
Addendum entered by Margy Minaya 01/19/24 12:11: Social Work- Pt accepted @ [facility]. Pt advised of acceptance. Plan: [facility]; skilled level of care MYCHAL Monreal Original Note: Social Work- SW met with pt to discuss plans at d/c. SW discussed therapy recommendations and concerns. PT declined SNF list and reports that he would like to have a referral for [facility]. DCA advised to complete referral. RNCM advised to complete [facility] declination form. MYCHAL Monreal
[2024-01-19] MEDS: HYDROcodone Bitartrate/Apap 5/325 Tablet PO ×2 (10:24→17:22)
--- NOTE | 2024-01-19 10:29 | CASEMGMT ---
[facility] Declination form stating that the pt wants his MCR billed for this hospitalization signed by the pt and [facility] to the [facility] at this time.
--- NOTE | 2024-01-19 10:33 | CASEMGMT ---
Addendum entered by Rebecca Sloan 01/19/24 11:00: [facility] has accepted. SW updated and wknd report information requested. Rebecca Sloan DC Planning Asst. Original Note: Discharge Planning Referral sent via [facility] to [facility]. Rebecca Sloan DC Planning Asst.
--- NOTE | 2024-01-19 11:27 | PCM.PN.HOSP ---
Reason for Visit Reason for Visit: Diagnoses Acute on chronic systolic (congestive) heart failure (01/15/24) Chronic obstructive pulmonary disease with (acute) exacerbation (01/15/24) Acute respiratory failure with hypoxia (01/15/24) Acute respiratory failure with hypercapnia (01/15/24) Subjective Subjective Saw patient at bedside this morning. Patient was satting well and breathing comfortably on 5 L nasal cannula this morning, much improved from yesterday. He tolerated BiPAP overnight without issue. Blood pressure is improved today as well. Patient appears to have slightly more energy today compared to yesterday and states he feels slightly better. He otherwise denies any new concerns today. He does continue to feel weak and is agreeable to pursuing SNF placement on discharge. Objective Data Objective Data Vital Signs: Vital Signs Temp Pulse Resp BP Pulse Ox O2 Del Method O2 Flow Rate 98.4 F 93 31 H 101/49 L 95 Nasal Cannula 5 01/19/24 08:00 01/19/24 10:00 01/19/24 10:00 01/19/24 10:00 01/19/24 10:00 01/19/24 10:00 01/19/24 10:00 FiO2 45 01/19/24 08:15 Oxygen Flow Rate (L/min) 5 Oxygen Delivery Method Nasal Cannula Weight: 66.791 kg Body Mass Index (BMI) 21.8 Intake & Output: Intake and Output for Last 24 Hours 01/17/24 01/18/24 01/19/24 23:59 23:59 23:59 Intake Total 1850 / 1850 200 / 200 Output Total 1200 / 2100 2300 / 2400 600 / 600 Balance 650 / -250 -2300 / -2200 -400 / -400 Lab / Micro Data 01/19/24 08:12 01/19/24 08:12 Labs: Laboratory Results - last 24 hr 01/18/24 11:27: POC Glucose 180 H 01/18/24 16:38: POC Glucose 120 H 01/18/24 20:32: POC Glucose 192 H 01/19/24 07:22: POC Glucose 58 L 01/19/24 07:54: POC Glucose 92 01/19/24 08:12: WBC 10.5, RBC 4.45 L, Hgb 13.0, Hct 41.6, MCV 93.5, MCH 29.2, MCHC 31.3 L, RDW Std Deviation 58.5 H, RDW Coeff of Audi 17.1 H, Plt Count 136 L, MPV 10.0, Immature Gran % (Auto) 1.000 H, Neut % (Auto) 78.3 H, Lymph % (Auto) 14.9 L, Crane % (Auto) 5.1, Eos % (Auto) 0.5, Baso % (Auto) 0.2, Absolute Neuts (auto) 8.2 H, Absolute Lymphs (auto) 1.57, Nucleated RBC % 0, Sodium 140, Potassium 3.9, Chloride 105, Carbon Dioxide 29.0, Anion Gap 6, BUN 48 H, Creatinine 1.63 H, Estim Creat Clear Calc 36.42, Est GFR (MDRD) Af Amer 53 L, Est GFR (MDRD) Non-Af 44 L, BUN/Creatinine Ratio 29.4 H, Glucose 84, Calcium 9.1 Micro: Microbiology 01/15/24 15:34 Mucosa - Nasopharyngeal SARS-CoV-2, Influenza & RSV (PCR) - Final Rhythm Strip Rhythm Strip: Sinus Rhythm Rate: 95 Ectopy: None Physical Exam Const alert, oriented x3, no apparent distress and average body habitus Constitutional Narrative: Elderly male, chronically ill-appearing, appears improved today, breathing comfortably on 5 L nasal cannula at rest, sitting up comfortably in bedside chair, conversing normally. General Appearance: cooperative and comfortable HEENT normocephalic, head/scalp atraumatic, hearing grossly normal bilaterally and nasal mucous membranes and turbinates normal Eyes PERRL, EOMs intact bilaterally and conjunctivae normal Neck full ROM Chest inspection of chest normal Resp Resp Narrative: Much improved today. No increased work of breathing noted on 5 L nasal cannula at rest with good oxygen saturations. Continues to have decreased breath sounds bilaterally, worse on left. No wheezing or crackles noted today. Cardio regular rate, regular rhythm, no murmurs and peripheral pulses 2+ throughout GI normal to inspection, nondistended, normoactive bowel sounds, soft to palpation, non-tender and non-distended Back/Spine normal ROM Extremity normal to inspection Extremity Narrative: +1-2 lower extremity pitting edema bilaterally, stable. Skin no rashes or lesions noted Neuro no focal motor deficits and no sensory deficits noted Speech: speech normal Psych mental status grossly normal Assessment & Plan Assessment/Plan (1) Acute respiratory failure with hypoxia and hypercapnia: (2) COPD exacerbation: (3) CHF exacerbation: QUALIFIERS: Heart failure type: systolic Qualified Code(s): I50.23 - Acute on chronic systolic (congestive) heart failure PLAN: Plan Patient is a 78-year-old male who presented to [facility] ED on 01/15/2024 with altered mental status. 1. Acute on chronic hypoxic and hypercapnic respiratory failure with concern for COPD exacerbation, improving ? Clinical Research Tech following. Presented with altered mental status, was found to be hypoxic and hypercapnic on arrival. Improved with BiPAP, did not require intubation. Was on 4 L nasal cannula prior to this admission. Suspected that worsened respiratory status admission was due to COPD exacerbation. Started on IV steroids and scheduled DuoNebs on admission with some improvement. Was recently treated for antibiotics for suspected left lung pneumonia as noted below so antibiotics were held on admit. Patient did have worsening oxygenation status on 01/16, possibly due to mild volume overload from heart failure as noted below. Weaned back to nasal cannula on morning of 01/18 and appears close to baseline. Stable for transfer to PCU on 01/18. Will continue IV steroids and scheduled DuoNebs for now; if remains stable tomorrow, we will plan to de-escalate to p.o. steroids and DuoNebs as needed. Will likely be medically ready for discharge tomorrow. Continue to wean supplemental oxygen as able. 2. 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 Most recent echo on 12/30 showed EF 20 to 25%, severe generalized LV systolic dysfunction, moderately severe global RV systolic dysfunction. Stable blood pressure on admit and did not appear volume overloaded, was not in heart failure exacerbation. Had mild volume overload on 01/16 that improved with a few doses of IV Lasix. Restarted home p.o. Lasix on 01/18. Home Coreg and lisinopril held since 01/16 given borderline low blood pressures, will restart when able. 3. Persistent left lung opacity ? Chest x-ray on admit showed a persistent left lung opacity of unclear etiology. Patient was treated for pneumonia during recent previous hospitalization with improvement. No infectious symptoms noted on this admission so no further antibiotics were given. Unclear if lung opacity is due to previous pneumonia versus a possible new malignancy. EBUS with biopsy was recommended during previous hospitalization but patient has poor functional status and would not be able to tolerate chemotherapy, so this was not pursued. Per pulmonology, will follow-up repeat imaging in 6 weeks after discharge. 4. Acute on chronic debility ? PT/OT/case management following. Patient lives at home with and initial plan was to return home but patient has worsening weakness from baseline and there is significant concern about him returning home. Planning for SNF on discharge at this time. Chronic medical conditions: ? History of CAD s/p stenting, hypertension, hyperlipidemia: Home blood pressure medications on hold given mild hypotension in setting of heart failure as noted above. Continue home statin. Continue home aspirin and Plavix. ? Type 2 diabetes mellitus with neuropathy: Blood sugars stable since admission. Continue insulin glargine 18 units at night and sign scale insulin with meals while inpatient. ? GERD: Continue home PPI. ? Depression: Continue home sertraline. ? BPH with obstructive symptoms: Continue home Flomax. DVT prophylaxis: Lovenox CODE STATUS: Full code, verified Expected disposition: SNF, 1 to 2 days Total clinical time spent by myself addressing the patient's medical issues, reviewing all the data, and collaborating with patient's care team: 35 minutes. Charges/Coding Visit Charges Inpatient E&M: 46038 Subs Hosp L2
--- NOTE | 2024-01-19 12:24 | CASEMGMT ---
Social Work- Per bedside nurse following a conversation with pt family, pt dtr, Sara, is to be called at d/c. SW completed PASSR and placed on chart along with transport forms. Pt confirms pt daughter as contact. MYCHAL Monreal
--- NOTE | 2024-01-19 15:23 | CASEMGMT ---
Social Work- SW received a call from [facility] for coordination on hospital stay. SW shared appropriate information and d/c plan. MYCHAL Monreal
[2024-01-19] MEDS: Insulin Lispro 100 UNIT/ML INSULN.PEN SC (21:47)
[2024-01-19] MEDS: Insulin Glargine-YFGN 100 UNIT/ML Pen 18 UNIT SC (21:48)
[2024-01-19] MEDS: Atorvastatin Calcium 80 MG Tablet PO (21:48)
[2024-01-19] MEDS: 0.9% Saline Lock 10 ML Syringe IV (21:49)
[2024-01-19 22:11] LABS: Bedside Glucose 255 mg/dL (74-106)
[2024-01-20] VITALS (18 sets, daily range): BP systolic 103–140; BP diastolic 50–72; PULSE 80–105; RESP 12–34; TEMP 36.1–36.6; O2SAT 92–99; BMI 21.5
[2024-01-20] MEDS: Ipratropium/Albuterol Sulfate 3 ML AMPUL.NEB INHALATION ×6 (02:18→23:50)
[2024-01-20 03:20] LABS: Bedside Glucose 104 mg/dL (74-106)
[2024-01-20 03:43] LABS: Hematocrit 39.4 % (40-54); Hemoglobin 12.2 g/dL (13.0-16.5); Mean Corpuscular Volume 93.6 fL (80-94); Mean Platelet Vol. 10.9 fl (6.2-12.0); Platelet Count 137 K/mm3 (150-450); RBC Distribution Width SD 58.2 fl (35.1-43.9); Red Blood Count 4.21 M/mm3 (4.6-6.2)
[2024-01-20 03:56] LABS: Anion Gap 5 (5-15); BUN 44 mg/dL (7-18); Chloride 103 mmol/L (98-107); Creatinine, Serum 1.63 mg/dL (0.70-1.30); EST Glomerular Filtration Rate 44 mL/min (>60); Est Glom Filt Rate - Afr Amer 53 mL/min (>60); Estimated Creatinine Clearance 35.99 ml/min; Glucose 171 mg/dL (74-106); Sodium Level 139 mmol/L (136-145)
[2024-01-20] MEDS: Menthol/Lanolin/Calamine/Znox 113 GM Tube 1 APPLIC TOPICAL ×3 (05:30→21:18)
[2024-01-20] MEDS: Enoxaparin 40 MG/0.4 ML Syringe SC (05:31)
[2024-01-20] MEDS: HYDROcodone Bitartrate/Apap 5/325 Tablet PO ×3 (05:34→19:54)
[2024-01-20] MEDS: Insulin Lispro 100 UNIT/ML INSULN.PEN SC ×4 (08:18→21:17)
[2024-01-20] MEDS: predniSONE 20 MG Tablet 40 MG PO (08:18)
[2024-01-20] MEDS: Gabapentin 100 MG Capsule PO ×3 (08:18→16:54)
[2024-01-20] MEDS: Pantoprazole Sodium 40 MG Tablet PO ×2 (08:19→21:17)
[2024-01-20] MEDS: Sertraline 100 MG Tablet PO (08:19)
[2024-01-20] MEDS: Tamsulosin HCl 0.4 MG Capsule PO (08:19)
[2024-01-20] MEDS: guaiFENesin 1,200 MG Tablet 1200 MG PO ×2 (08:19→21:17)
[2024-01-20] MEDS: Clopidogrel Bisulfate 75 MG Tablet PO (08:19)
[2024-01-20] MEDS: Aspirin E.C. 81 MG Tablet PO (08:19)
[2024-01-20 08:41] LABS: Bedside Glucose 154 mg/dL (74-106)
--- NOTE | 2024-01-20 11:56 | PCM.DC.SUM ---
Providers Date of Admission: 01/15/24 Primary Care Physician: Dr. Mich Rosales MD Consultations 01/15/24 21:32 Consult: Receiving Operator / Pulmonary Medicine Routine Consulting Provider: Intensivists/Pulmonary Med Reason for Consult: Hypoxic and hypercapnic resp failure EMERGENT Consult: No MD Notified: Yes Date Notified: 01/15/24 Time Notified: 16:58 Method of Notification: Text Reason For Visit: HYPOXIC & HYPERCAPNIC RESPIRATORY FAILURE Diagnosis Discharge Diagnosis (1) Acute respiratory failure with hypoxia and hypercapnia: Status: Acute Code(s): J96.01 - Acute respiratory failure with hypoxia; J96.02 - Acute respiratory failure with hypercapnia (2) COPD exacerbation: Status: Resolved Code(s): J44.1 - Chronic obstructive pulmonary disease with (acute) exacerbation (3) CHF exacerbation: Status: Chronic Code(s): I50.9 - Heart failure, unspecified Qualifiers: Heart failure type: systolic Qualified Code(s): I50.23 - Acute on chronic systolic (congestive) heart failure Plan Patient is a 78-year-old male who presented to [facility] ED on 01/15/2024 with altered mental status. 1. Acute on chronic hypoxic and hypercapnic respiratory failure with concern for COPD exacerbation, improving ? Receiving Operator following. Presented with altered mental status, was found to be hypoxic and hypercapnic on arrival. Improved with BiPAP, did not require intubation. Was on 4 L nasal cannula prior to this admission. Suspected that worsened respiratory status admission was due to COPD exacerbation. Started on IV steroids and scheduled DuoNebs on admission with some improvement. Was recently treated for antibiotics for suspected left lung pneumonia as noted below so antibiotics were held on admit. Patient did have worsening oxygenation status on 01/16, possibly due to mild volume overload from heart failure as noted below. Weaned back to nasal cannula on morning of 01/18 and appears close to baseline. Stable for transfer to PCU on 01/18. Will continue IV steroids and scheduled DuoNebs for now; if remains stable tomorrow, we will plan to de-escalate to p.o. steroids and DuoNebs as needed. Will likely be medically ready for discharge tomorrow. Continue to wean supplemental oxygen as able. 2. 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 Most recent echo on 12/30 showed EF 20 to 25%, severe generalized LV systolic dysfunction, moderately severe global RV systolic dysfunction. Stable blood pressure on admit and did not appear volume overloaded, was not in heart failure exacerbation. Had mild volume overload on 01/16 that improved with a few doses of IV Lasix. Restarted home p.o. Lasix on 01/18. Home Coreg and lisinopril held since 01/16 given borderline low blood pressures, will restart when able. 3. Persistent left lung opacity ? Chest x-ray on admit showed a persistent left lung opacity of unclear etiology. Patient was treated for pneumonia during recent previous hospitalization with improvement. No infectious symptoms noted on this admission so no further antibiotics were given. Unclear if lung opacity is due to previous pneumonia versus a possible new malignancy. EBUS with biopsy was recommended during previous hospitalization but patient has poor functional status and would not be able to tolerate chemotherapy, so this was not pursued. Per pulmonology, will follow-up repeat imaging in 6 weeks after discharge. 4. Acute on chronic debility ? PT/OT/case management following. Patient lives at home with and initial plan was to return home but patient has worsening weakness from baseline and there is significant concern about him returning home. Planning for SNF on discharge at this time. Chronic medical conditions: ? History of CAD s/p stenting, hypertension, hyperlipidemia: Home blood pressure medications on hold given mild hypotension in setting of heart failure as noted above. Continue home statin. Continue home aspirin and Plavix. ? Type 2 diabetes mellitus with neuropathy: Blood sugars stable since admission. Continue insulin glargine 18 units at night and sign scale insulin with meals while inpatient. ? GERD: Continue home PPI. ? Depression: Continue home sertraline. ? BPH with obstructive symptoms: Continue home Flomax. DVT prophylaxis: Lovenox CODE STATUS: Full code, verified Expected disposition: SNF, 1 to 2 days Total clinical time spent by myself addressing the patient's medical issues, reviewing all the data, and collaborating with patient's care team: 35 minutes. Medications at Discharge Home Medications glipizide 5 mg tablet 5 mg PO .BEFORE MEALS DM 08/20/18 sertraline 50 mg tablet 100 mg PO DAILY DEPRESSION 08/20/18 carvedilol 3.125 mg tablet 3.125 mg PO BID blood pressure 08/21/18 clopidogrel 75 mg tablet 75 mg PO DAILY anti platelet 08/21/18 cholecalciferol (vitamin D3) 25 mcg (1,000 unit) capsule 75 mcg PO DAILY vitamin 12/30/22 cyanocobalamin (vitamin B-12) 1,000 mcg capsule 1,000 mcg PO DAILY vitamin 12/30/22 mometasone 200 mcg/actuation HFA aerosol inhaler (Asmanex HFA) 2 puff inhalation BID breathing 12/30/22 aspirin 81 mg tablet,delayed release (Adult Aspirin Regimen) 81 mg PO DAILY heart meera 12/05/23 insulin glargine 100 unit/mL subcutaneous solution 18 unit (0.18 mL) subcut QHS bg 30 days #0 mL 12/15/23 insulin lispro 100 unit/mL subcutaneous pen (Humalog KwikPen (U-100) Insulin) 5 unit (0.05 mL) subcut TIDAC bg 1 month #15 mL 12/15/23 pantoprazole 40 mg tablet,delayed release (Protonix) 40 mg PO BID stomach 30 days #60 tabs 12/15/23 prednisone 20 mg tablet 40 mg (2 x 20 mg) PO BREAKFAST steroid #6 tabs 01/07/24 albuterol sulfate 2.5 mg/3 mL (0.083 %) solution for nebulization 2.5 mg inhalation Q4H PRN PRN wheezing 01/16/24 amlodipine 10 mg tablet 5 mg PO DAILY heart 01/16/24 budesonide-formoterol HFA 160 mcg-4.5 mcg/actuation aerosol inhaler (Breyna) 2 inh inhalation BID copd 01/16/24 furosemide 20 mg tablet 20 mg PO DAILY chf 01/16/24 gabapentin 400 mg capsule 400 mg PO TID neuropathy 01/16/24 guaifenesin 1,200 mg tablet, extended release 12 hr 1,200 mg PO BID cough 01/16/24 hydrocodone-acetaminophen 5-325mg 5mg-325mg 1 tab PO Q8H PRN PRN pain 01/16/24 lisinopril 5 mg tablet 5 mg PO DAILY heart 01/16/24 mometasone 200 mcg/actuation HFA aerosol inhaler (Asmanex HFA) 2 inh inhalation BID copd 01/16/24 nitroglycerin 0.4 mg sublingual tablet 0.4 mg sublingual Q5M PRN chest pain 01/16/24 rosuvastatin 40 mg tablet (Crestor) 40 mg PO QHS cholestrol 01/16/24 tamsulosin 0.4 mg capsule (Flomax) 0.4 mg PO DAILY bph 01/16/24 tiotropium 2.5 mcg-olodaterol 2.5 mcg/actuation mist for inhalation (Stiolto Respimat) 2 inh inhalation DAILY copd 01/16/24 tiotropium bromide 2.5 mcg/actuation mist for inhalation (Spiriva Respimat) 2 inh inhalation DAILY copd 01/16/24 Weight / BMI Weight Weight: 65.998 kg Body Mass Index (BMI) 21.5 ABG / Lab / Microbiology Data 01/20/24 03:33 01/20/24 03:33 Laboratory: Laboratory Results - last 24 hr 01/19/24 11:27: POC Glucose 104 01/19/24 21:45: POC Glucose 255 H 01/20/24 03:33: WBC 11.0, RBC 4.21 L, Hgb 12.2 L, Hct 39.4 L, MCV 93.6, MCH 29.0, MCHC 31.0 L, RDW Std Deviation 58.2 H, RDW Coeff of Audi 17.0 H, Plt Count 137 L, MPV 10.9, Sodium 139, Potassium 4.0, Chloride 103, Carbon Dioxide 31.0, Anion Gap 5, BUN 44 H, Creatinine 1.63 H, Estim Creat Clear Calc 35.99, Est GFR (MDRD) Af Amer 53 L, Est GFR (MDRD) Non-Af 44 L, BUN/Creatinine Ratio 27.0 H, Glucose 171 H, Calcium 9.0 01/20/24 08:15: POC Glucose 154 H Microbiology: Microbiology 01/15/24 15:34 Mucosa - Nasopharyngeal SARS-CoV-2, Influenza & RSV (PCR) - Final Meaningful Use Info Ischemic Stroke Statin Dosing Therapy Reference: STATIN DOSE THERAPY REFERENCE: * Patients > 75 years receive moderate or high dose statin therapy. * Patients 75 years or YOUNGER should receive HIGH intensity statin dose unless contraindicated. You will be required to document reason for non-treatment if statin daily dose does not meet guidelines. HIGH DOSE STATIN THERAPY DAILY Atorvastatin > than or = to 40 mg Rosuvastatin > than or = to 20 mg Amlodipine + Atorvastatin > than or = to 2.5/40 mg Ezetimibe + Simvastatin 10/80 mg Simvastatin 80mg Discharge Plan Admission Admit Date/Time: 01/15/24 16:39 Attending Provider: Gera Aden Primary Care Provider: Mich Rosales Consulting Providers: Christofer Hernandez; Mich Roberts; José Manuel Bailey; Juan Sanders; Prashanth Wood; Richard Poon; Otf Rolon; Brock Kumar; Sharon Sin; Jackson Lopez; Yehuda Donato; Suzanna Stanley; Rosario Cuadra; Tan Lora; Guido Gupta; Sree Haq; Madhavi Sarmiento; Edgar Lara; Alex Farley Discharge Orders/Prescriptions Prescriptions: No Action sertraline 50 MG tablet 100 mg PO DAILY glipizide 5 MG tablet 5 mg PO .BEFORE MEALS clopidogrel 75 MG tablet 75 mg PO DAILY 0RF carvedilol 3.125 MG tablet 3.125 mg PO BID 0RF Asmanex HFA 200 mcg/actuation HFA aerosol inhaler 2 puff inhalation BID cyanocobalamin (vitamin B-12) 1,000 mcg capsule 1,000 mcg PO DAILY cholecalciferol (vitamin D3) 25 mcg (1,000 unit) capsule 75 mcg PO DAILY aspirin [Adult Aspirin Regimen] 81 mg tablet,delayed release (DR/EC) 81 mg PO DAILY insulin lispro [Humalog KwikPen Insulin] 100 unit/mL Insulin Pen 5 unit subcut TIDAC 30 Days Qty: 15 3RF Rx Instructions: Hold if glucose less than 130 mg/dl insulin glargine 100 unit/mL solution 18 unit subcut QHS 30 Days Qty: 0 0RF Rx Instructions: Hold if glucose less than 130 mg/dl pantoprazole [Protonix] 40 mg tablet,delayed release (DR/EC) 40 mg PO BID 30 Days Qty: 60 2RF prednisone 20 mg Tablet 40 mg PO BREAKFAST Qty: 6 0RF amlodipine 10 mg tablet 5 mg PO DAILY albuterol sulfate 2.5 mg /3 mL (0.083 %) solution for nebulization 2.5 mg inhalation Q4H PRN PRN (Reason: wheezing) nitroglycerin 0.4 mg tablet, sublingual 0.4 mg sublingual Q5M PRN (Reason: chest pain) Rx Instructions: 0.4 mg every 5-15 minutes as needed for chest pain; do not exceed 3 doses per episode guaifenesin 1,200 mg tablet extended release 12hr 1,200 mg PO BID gabapentin 400 mg capsule 400 mg PO TID Spiriva Respimat 2.5 mcg/actuation mist 2 inh inhalation DAILY tamsulosin [Flomax] 0.4 mg capsule 0.4 mg PO DAILY Stiolto Respimat 2.5-2.5 mcg/actuation mist 2 inh inhalation DAILY rosuvastatin [Crestor] 40 mg tablet 40 mg PO QHS lisinopril 5 mg tablet 5 mg PO DAILY Asmanex HFA 200 mcg/actuation HFA aerosol inhaler 2 inh inhalation BID furosemide 20 mg tablet 20 mg PO DAILY Rx Instructions: Take extra 20 mg dose at 5 PM for increased leg swelling or weight gain 5 pounds in 1 week. hydrocodone-acetaminophen 5-325 mg tablet 1 tab PO Q8H PRN PRN (Reason: pain) budesonide-formoterol [Breyna] 160-4.5 mcg/actuation HFA aerosol inhaler 2 inh inhalation BID Referrals / Follow Up: Prashanth Wood DO [Med Staff - Active Staff] - 04/19/24 2:45 pm Mich Rosales MD [Primary Care Provider] -
[2024-01-20 12:31] LABS: Bedside Glucose 183 mg/dL (74-106)
--- NOTE | 2024-01-20 14:12 | PN.CC_ITS ---
Objective Data Objective Data Vital Signs: Vital Signs Last response 3 Temperature 36.6 C 01/20/24 12:26 Temperature Source Temporal 01/20/24 12:26 Pulse Rate 100 01/20/24 12:26 Pulse Strength Normal (2+) 01/19/24 20:41 Respiratory Rate 18 01/20/24 12:26 Respiratory Effort Normal, Accessory Muscle Use 01/20/24 09:00 Respiratory Depth Shallow 01/20/24 09:00 Respiratory Pattern Tachypnea 01/20/24 11:13 Blood Pressure 123/67 H 01/20/24 12:26 Blood Pressure Mean 85 01/20/24 12:26 Blood Pressure Source Monitor 01/20/24 12:26 Blood Pressure Position Semi-Fowlers 01/20/24 12:26 Blood Pressure Location Right Arm 01/20/24 12:26 Pulse Ox 93 01/20/24 12:26 Oxygen Delivery Method Nasal Cannula 01/20/24 12:26 Oxygen Flow Rate (L/min) 6 01/20/24 12:26 Fraction of Inspired Oxygen (FIO2) 50 01/20/24 10:00 I&O: I&O Last 24 Hours 3 01/19/24 01/20/24 01/20/24 23:59 11:59 23:59 Intake Total 240 / 440 480 / 480 Output Total 1025 / 1025 Balance 240 / -160 -545 / -545 I&O: Total Stay 3 01/15/24 14:52 thru 01/20/24 12:00 Intake Total 3235 Output Total 5875 Balance -2640 Current Meds Ordered / Administered: Current meds ordered / Administered 3 Generic Name Dose Route Start Last Admin Trade Name Freq PRN Reason Stop Dose Admin Hydrocodone Bitart/Acetaminophen 1 tablet 01/16/24 16:13 01/20/24 12:22 Hydrocodone Bitartrate/Apap 5/325 Tablet PO 1 tablet Q6H PRN PRN Administration Pain Score 4-10 Albuterol Sulfate 2.5 mg 01/16/24 14:12 Albuterol 2.5 Mg/3 Ml Vial.Neb. INHALATION Q4H PRN PRN wheezing Albuterol/Ipratropium 3 ml 01/15/24 21:32 01/20/24 11:12 Ipratropium/Albuterol Sulfate 3 Ml Ampul.Neb INHALATION 3 ml Q4H.RT DONA Administration Aspirin 81 mg 01/17/24 10:00 01/20/24 08:19 Aspirin E.C. 81 Mg Tablet PO 81 mg DAILY DONA Administration Atorvastatin Calcium 80 mg 01/16/24 22:00 01/19/24 21:48 Atorvastatin Calcium 80 Mg Tablet PO 80 mg QHS DONA Administration Calamine/Phenol 1 applic 01/16/24 22:00 01/20/24 05:30 Menthol/Lanolin/Calamine/Znox 113 Gm Tube TOPICAL 1 applic TID DONA Administration Protocol Clopidogrel Bisulfate 75 mg 01/17/24 10:00 01/20/24 08:19 Clopidogrel Bisulfate 75 Mg Tablet PO 75 mg DAILY DONA Administration Enoxaparin Sodium 40 mg 01/17/24 06:00 01/20/24 05:31 Enoxaparin 40 Mg/0.4 Ml Syringe SC 40 mg DAILY@0600 DONA Administration Gabapentin 100 mg 01/16/24 17:00 01/20/24 12:09 Gabapentin 100 Mg Capsule PO 100 mg TIDCM DONA Administration Glucagon 1 mg 01/15/24 21:32 Glucagon 1 Mg/Ml Syringe IM X1 PRN HYPOGLYCEMIA Protocol Guaifenesin 1,200 mg 01/16/24 22:00 01/20/24 08:19 Guaifenesin 1,200 Mg Tablet PO 1,200 mg BID DONA Administration Dextrose 250 mls @ 0 mls/hr 01/15/24 21:32 Dextrose 10%-Water IV .Q0M PRN HYPOGLYCEMIA Protocol As Directed Insulin Glargine 18 unit 01/16/24 22:00 01/19/24 21:48 Insulin Glargine-Yfgn 100 Unit/Ml Pen SC 18 unit QHS DONA Administration Insulin Human Lispro 0 unit 01/16/24 11:00 01/20/24 11:25 Insulin Lispro 100 Unit/Ml Insuln.Pen SC 2 u ACHS DONA Administration Protocol Pantoprazole Sodium 40 mg 01/16/24 22:00 01/20/24 08:19 Pantoprazole Sodium 40 Mg Tablet PO 40 mg BID DONA Administration Prednisone 40 mg 01/20/24 08:00 01/20/24 08:18 Prednisone 20 Mg Tablet PO 40 mg BREAKFAST DONA Administration Sertraline HCl 100 mg 01/17/24 10:00 01/20/24 08:19 Sertraline 100 Mg Tablet PO 100 mg DAILY DONA Administration Sodium Chloride 10 - 40 ml 01/17/24 14:33 01/19/24 21:49 0.9% Saline Lock 10 Ml Syringe IV 10 ml UD PRN Administration SALINE FLUSH Tamsulosin HCl 0.4 mg 01/17/24 10:00 01/20/24 08:19 Tamsulosin Hcl 0.4 Mg Capsule PO 0.4 mg DAILY DONA Administration Lab / Micro Data 01/20/24 03:33 01/20/24 03:33 Labs: Laboratory Results - last 24 hr 01/19/24 11:27: POC Glucose 104 01/19/24 21:45: POC Glucose 255 H 01/20/24 03:33: WBC 11.0, RBC 4.21 L, Hgb 12.2 L, Hct 39.4 L, MCV 93.6, MCH 29.0, MCHC 31.0 L, RDW Std Deviation 58.2 H, RDW Coeff of Audi 17.0 H, Plt Count 137 L, MPV 10.9, Sodium 139, Potassium 4.0, Chloride 103, Carbon Dioxide 31.0, Anion Gap 5, BUN 44 H, Creatinine 1.63 H, Estim Creat Clear Calc 35.99, Est GFR (MDRD) Af Amer 53 L, Est GFR (MDRD) Non-Af 44 L, BUN/Creatinine Ratio 27.0 H, G lucose 171 H, Calcium 9.0 01/20/24 08:15: POC Glucose 154 H 01/20/24 11:24: POC Glucose 183 H Rhythm Strip Rhythm Strip: Sinus Rhythm Rate: 95 Ectopy: None Assessment and Plan . Assessment and plan: Acute on chronic hypercapnic/hypoxic respiratory fialure Tobacco abuse DM II History of esophageal stenosis - currently on airvo 60L and 63 % - on nebs and bronchodilators - consider higher doses of lasix - IS and flutter valve - consider goals of care discussion if he does not improve Critical Care Time: 35 The entirety of this encounter was done via Telemedicine Physical Exam Const alert and oriented x3 HEENT normocephalic Eyes PERRL Resp normal respiratory effort Effort and Inspection: able to speak in complete sentences Cardio regular rate and regular rhythm GI normal to inspection, nondistended, normoactive bowel sounds Skin no rashes or lesions noted Neuro oriented x3 and CN's II-XII intact bilaterally Subjective Subjective Patient came down from ICU. Currently on airvo - 60L -63%.
--- NOTE | 2024-01-20 15:42 | PCM.PN.HOSP ---
Reason for Visit Reason for Visit: Diagnoses Acute on chronic systolic (congestive) heart failure (01/15/24) Chronic obstructive pulmonary disease with (acute) exacerbation (01/15/24) Acute respiratory failure with hypoxia (01/15/24) Acute respiratory failure with hypercapnia (01/15/24) Subjective Subjective Saw patient at bedside this morning in the ICU. Patient notably was transferred down to the PCU later this morning. When I saw him, patient was on low setting of high flow nasal cannula with oxygen saturations in the low to mid 90s. Denied any shortness of breath at rest. He appeared fairly similar to yesterday and stated he felt similar to yesterday. No new concerns today. Objective Data Objective Data Vital Signs: Vital Signs Temp Pulse Resp BP Pulse Ox O2 Del Method O2 Flow Rate 97.9 F 105 H 22 H 123/67 H 93 Nasal Cannula 6 01/20/24 12:26 01/20/24 15:36 01/20/24 15:36 01/20/24 12:26 01/20/24 15:36 01/20/24 12:26 01/20/24 12:26 FiO2 60 01/20/24 15:36 Oxygen Flow Rate (L/min) 6 Oxygen Delivery Method Nasal Cannula Weight: 65.998 kg Body Mass Index (BMI) 21.5 Intake & Output: Intake and Output for Last 24 Hours 01/18/24 01/19/24 01/20/24 23:59 23:59 23:59 Intake Total 440 / 440 480 / 480 Output Total 2300 / 2400 600 / 600 1025 / 1025 Balance -2300 / -2200 -160 / -160 -545 / -545 Lab / Micro Data 01/20/24 03:33 01/20/24 03:33 Labs: Laboratory Results - last 24 hr 01/19/24 11:27: POC Glucose 104 01/19/24 21:45: POC Glucose 255 H 01/20/24 03:33: WBC 11.0, RBC 4.21 L, Hgb 12.2 L, Hct 39.4 L, MCV 93.6, MCH 29.0, MCHC 31.0 L, RDW Std Deviation 58.2 H, RDW Coeff of Audi 17.0 H, Plt Count 137 L, MPV 10.9, Sodium 139, Potassium 4.0, Chloride 103, Carbon Dioxide 31.0, Anion Gap 5, BUN 44 H, Creatinine 1.63 H, Estim Creat Clear Calc 35.99, Est GFR (MDRD) Af Amer 53 L, Est GFR (MDRD) Non-Af 44 L, BUN/Creatinine Ratio 27.0 H, Glucose 171 H, Calcium 9.0 01/20/24 08:15: POC Glucose 154 H 01/20/24 11:24: POC Glucose 183 H Micro: Microbiology 01/15/24 15:34 Mucosa - Nasopharyngeal SARS-CoV-2, Influenza & RSV (PCR) - Final Rhythm Strip Rhythm Strip: Sinus Rhythm Rate: 95 Ectopy: None Physical Exam Const alert, oriented x3, no apparent distress and average body habitus Constitutional Narrative: Elderly male, chronically ill-appearing, improved from admission, breathing comfortably on low setting of high flow nasal cannula, sitting up comfortably in bedside chair, conversing normally. General Appearance: cooperative and comfortable HEENT normocephalic, head/scalp atraumatic, hearing grossly normal bilaterally and nasal mucous membranes and turbinates normal Eyes PERRL, EOMs intact bilaterally and conjunctivae normal Neck full ROM Chest inspection of chest normal Resp Resp Narrative: Improvement admission and stable from yesterday. Was on low setting of high flow nasal cannula more for comfort this morning with good oxygen saturations. Continues to have decreased breath sounds bilaterally but no wheezing or crackles noted, similar to yesterday. Cardio regular rate, regular rhythm, no murmurs and peripheral pulses 2+ throughout GI normal to inspection, nondistended, normoactive bowel sounds, soft to palpation, non-tender and non-distended Back/Spine normal ROM Extremity normal to inspection Extremity Narrative: +1-2 lower extremity edema bilaterally, stable. Skin no rashes or lesions noted Neuro no focal motor deficits and no sensory deficits noted Speech: speech normal Psych mental status grossly normal Assessment & Plan Assessment/Plan (1) Acute respiratory failure with hypoxia and hypercapnia: (2) COPD exacerbation: (3) CHF exacerbation: QUALIFIERS: Heart failure type: systolic Qualified Code(s): I50.23 - Acute on chronic systolic (congestive) heart failure PLAN: Plan Patient is a 78-year-old male who presented to [facility] ED on 01/15/2024 with altered mental status. 1. Acute on chronic hypoxic and hypercapnic respiratory failure with concern for COPD exacerbation, improving ? Director Of Rooms following. Presented with altered mental status, was found to be hypoxic and hypercapnic on arrival. Improved with BiPAP, did not require intubation. Was on 4 L nasal cannula prior to this admission. Suspected that worsened respiratory status admission was due to COPD exacerbation. Started on IV steroids and scheduled DuoNebs on admission with some improvement. Was recently treated for antibiotics for suspected left lung pneumonia as noted below so antibiotics were held on admit. Patient did have worsening oxygenation status on 01/16, possibly due to mild volume overload from heart failure as noted below. Weaned back to nasal cannula on morning of 01/18 and appears close to baseline. Stable for transfer to PCU on 01/18. De-escalated to p.o. steroids and DuoNebs as needed on 01/19. Stable on 6 L nasal cannula. If remains stable tomorrow, will be medically ready for discharge. 2. 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 Most recent echo on 12/30 showed EF 20 to 25%, severe generalized LV systolic dysfunction, moderately severe global RV systolic dysfunction. Stable blood pressure on admit and did not appear volume overloaded, was not in heart failure exacerbation. Had mild volume overload on 01/16 that improved with a few doses of IV Lasix. Restarted home p.o. Lasix on 01/18. Home Coreg and lisinopril held since 01/16 given borderline low blood pressures, will restart when able. 3. Persistent left lung opacity ? Chest x-ray on admit showed a persistent left lung opacity of unclear etiology. Patient was treated for pneumonia during recent previous hospitalization with improvement. No infectious symptoms noted on this admission so no further antibiotics were given. Unclear if lung opacity is due to previous pneumonia versus a possible new malignancy. EBUS with biopsy was recommended during previous hospitalization but patient has poor functional status and would not be able to tolerate chemotherapy, so this was not pursued. Per pulmonology, will follow-up repeat imaging in 6 weeks after discharge. 4. Acute on chronic debility ? PT/OT/case management following. Patient lives at home with and initial plan was to return home but patient has worsening weakness from baseline and there is significant concern about him returning home. Will be going to SNF on discharge. Chronic medical conditions: ? History of CAD s/p stenting, hypertension, hyperlipidemia: Home blood pressure medications on hold given mild hypotension in setting of heart failure as noted above. Continue home statin. Continue home aspirin and Plavix. ? Type 2 diabetes mellitus with neuropathy: Blood sugars stable since admission. Continue insulin glargine 18 units at night and sign scale insulin with meals while inpatient. ? GERD: Continue home PPI. ? Depression: Continue home sertraline. ? BPH with obstructive symptoms: Continue home Flomax. DVT prophylaxis: Lovenox CODE STATUS: Full code, verified Expected disposition: SNF, 1 to 2 days Total clinical time spent by myself addressing the patient's medical issues, reviewing all the data, and collaborating with patient's care team: 35 minutes. Charges/Coding Visit Charges Inpatient E&M: 21382 Subs Hosp L2
[2024-01-20 17:15] LABS: Bedside Glucose 215 mg/dL (74-106)
[2024-01-20] MEDS: Atorvastatin Calcium 80 MG Tablet PO (21:17)
[2024-01-20] MEDS: Insulin Glargine-YFGN 100 UNIT/ML Pen 18 UNIT SC (21:17)
[2024-01-20 21:42] LABS: Bedside Glucose 204 mg/dL (74-106)
[2024-01-21] VITALS (14 sets, daily range): BP systolic 92–131; BP diastolic 57–79; PULSE 89–102; RESP 12–36; TEMP 36.3–37.1; O2SAT 92–99; BMI 21.6
[2024-01-21] MEDS: 0.9% Saline Lock 10 ML Syringe IV (03:05)
[2024-01-21] MEDS: Furosemide 40 MG/4 ML Vial IV (03:05)
[2024-01-21] MEDS: Ipratropium/Albuterol Sulfate 3 ML AMPUL.NEB INHALATION ×6 (03:10→23:52)
--- NOTE | 2024-01-21 03:15 | RAD_ITS ---
INDICATION: INCREASED SOB EXAMINATION/TECHNIQUE: X-RAY - XR Chest 1 View AP portable. 3:07 AM COMPARISON: 01/18/2024 FINDINGS: LINES/DEVICES: None. LUNGS: Bilateral infiltrates greater on the left, especially left upper lobe/perihilar, not significantly changed. Small bilateral pleural effusions also unchanged. No pneumothorax. MEDIASTINUM: Unremarkable. CARDIAC SILHOUETTE: Not enlarged. Sternal wires. BONES AND SOFT TISSUES: No acute abnormalities. RAD/Chest 1 View (Portable) IMPRESSION: Bilateral airspace disease greater on the left and pleural effusions, not significantly changed. Electronically Signed: Janelle Mcmullen MD at 5:01 EDT ,
[2024-01-21 03:32] LABS: Allen Test Positive; Base Excess 6 mmol/L (-2 to +2); Bicarbonate 32.1 mmol/L (22-26); Blood Gas Specimen Type ART; Mode Not entered; O2 Delivery Device BiPAP; PO2 74 mmHG (75-100); RR 12; SITE R Brach; SO2 93 % (95-99); Total Carbon Dioxide 34 mmol/L; pCO2 59.8 mmHg (35-45); pH 7.34 (7.35-7.45)
[2024-01-21 03:41] LABS: BNP,B-Type NATRIURETIC PEPTIDE 359.4 pg/mL (0-100)
[2024-01-21] MEDS: Enoxaparin 40 MG/0.4 ML Syringe SC (06:07)
[2024-01-21] MEDS: Menthol/Lanolin/Calamine/Znox 113 GM Tube 1 APPLIC TOPICAL ×3 (06:07→21:05)
[2024-01-21] MEDS: HYDROcodone Bitartrate/Apap 5/325 Tablet PO ×3 (06:16→18:44)
[2024-01-21 06:40] LABS: Bedside Glucose 103 mg/dL (74-106)
[2024-01-21] MEDS: Gabapentin 100 MG Capsule PO ×3 (08:26→16:55)
[2024-01-21] MEDS: predniSONE 20 MG Tablet 40 MG PO (08:26)
[2024-01-21] MEDS: guaiFENesin 1,200 MG Tablet 1200 MG PO ×2 (08:27→21:04)
[2024-01-21] MEDS: Aspirin E.C. 81 MG Tablet PO (08:27)
[2024-01-21] MEDS: Clopidogrel Bisulfate 75 MG Tablet PO (08:27)
[2024-01-21] MEDS: Pantoprazole Sodium 40 MG Tablet PO ×2 (08:27→21:04)
[2024-01-21] MEDS: Tamsulosin HCl 0.4 MG Capsule PO (08:27)
[2024-01-21] MEDS: Sertraline 100 MG Tablet PO (08:28)
[2024-01-21] MEDS: Furosemide 20 MG Tablet PO (08:31)
--- NOTE | 2024-01-21 11:52 | PCM.PN.HOSP ---
Reason for Visit Reason for Visit: Diagnoses Acute on chronic systolic (congestive) heart failure (01/15/24) Chronic obstructive pulmonary disease with (acute) exacerbation (01/15/24) Acute respiratory failure with hypoxia (01/15/24) Acute respiratory failure with hypercapnia (01/15/24) Subjective Subjective Saw patient at bedside this morning. Overnight patient had slightly worsening oxygenation status with some shortness of breath. Chest x-ray appeared similar to previous. Was given a dose of IV Lasix 40 mg with good urine output and some improvement in oxygenation status, and home p.o. Lasix 20 mg daily was restarted this morning. Saw the patient later in the morning. He was still on low setting of high flow nasal cannula but was breathing comfortably. He stated that his breathing felt improved this morning from overnight. No other new concerns today. Objective Data Objective Data Vital Signs: Vital Signs Temp Pulse Resp BP Pulse Ox O2 Del Method O2 Flow Rate 97.9 F 97 28 H 92/57 L 93 Airvo 60 01/21/24 08:31 01/21/24 10:35 01/21/24 10:35 01/21/24 08:31 01/21/24 08:31 01/21/24 08:40 01/21/24 06:46 FiO2 63 01/21/24 06:49 Oxygen Flow Rate (L/min) 60 Oxygen Delivery Method Airvo Weight: 66.5 kg Body Mass Index (BMI) 21.6 Intake & Output: Intake and Output for Last 24 Hours 01/19/24 01/20/24 01/21/24 23:59 23:59 23:59 Intake Total 440 / 440 480 / 720 315 / 315 Output Total 600 / 600 1025 / 1350 825 / 825 Balance -160 / -160 -545 / -630 -510 / -510 Lab / Micro Data 01/20/24 03:33 01/20/24 03:33 Labs: Laboratory Results - last 24 hr 01/20/24 11:24: POC Glucose 183 H 01/20/24 16:52: POC Glucose 215 H 01/20/24 21:16: POC Glucose 204 H 01/21/24 03:10: B-Natriuretic Peptide 359.4 H 01/21/24 06:06: POC Glucose 103 Micro: Microbiology 01/15/24 15:34 Mucosa - Nasopharyngeal SARS-CoV-2, Influenza & RSV (PCR) - Final ABG Data ABG results: ABG 01/21/24 03:28 Specimen Type ART Sample Site R Brach pH 7.34 L Bicarbonate Actual 32.1 H Total CO2 34 Base Excess 6 H O2 Saturation 93 L O2 % 40.0 ABG pCO2 59.8 H ABG pO2 74 L Meliton Test Positive Respiration Rate 12 O2 Delivery Device BiPAP Vent Mode Not entered Tidal Volume 500.0 Radiography Diagnostic Testing: Radiology Impression Chest X-Ray 01/21/24 03:15 IMPRESSION: Bilateral airspace disease greater on the left and pleural effusions, not significantly changed. Electronically Signed: Janelle Mcmullen MD at 5:01 EDT , Rhythm Strip Rhythm Strip: Sinus Rhythm Rate: 95 Ectopy: None Physical Exam Const alert, oriented x3, no apparent distress and average body habitus Constitutional Narrative: Elderly male, chronically ill-appearing, breathing comfortably on low setting of high flow nasal cannula, sitting up comfortably in bedside chair, conversing normally. Stable. General Appearance: cooperative and comfortable HEENT normocephalic, head/scalp atraumatic, hearing grossly normal bilaterally and nasal mucous membranes and turbinates normal Eyes PERRL, EOMs intact bilaterally and conjunctivae normal Neck full ROM Chest inspection of chest normal Resp Resp Narrative: Improved from admission but very slightly worse from yesterday. Requiring slightly more oxygen on high flow nasal cannula likely due to small degree of volume overload. Otherwise no increased work of breathing noted. Moderately decreased breath sounds bilaterally, worse on left, stable. Cardio regular rate, regular rhythm, no murmurs and peripheral pulses 2+ throughout GI normal to inspection, nondistended, normoactive bowel sounds, soft to palpation, non-tender and non-distended Back/Spine normal ROM Extremity normal to inspection Extremity Narrative: +1-2 lower extremity edema bilaterally, stable. Skin no rashes or lesions noted Neuro no focal motor deficits and no sensory deficits noted Speech: speech normal Psych mental status grossly normal Assessment & Plan Assessment/Plan (1) Acute respiratory failure with hypoxia and hypercapnia: (2) COPD exacerbation: (3) CHF exacerbation: QUALIFIERS: Heart failure type: systolic Qualified Code(s): I50.23 - Acute on chronic systolic (congestive) heart failure PLAN: Plan Patient is a 78-year-old male who presented to [facility] ED on 01/15/2024 with altered mental status. 1. Acute on chronic hypoxic and hypercapnic respiratory failure with concern for COPD exacerbation, improving ? [employer] followed. Presented with altered mental status, was found to be hypoxic and hypercapnic on arrival. Improved with BiPAP, did not require intubation. Was on 4 L nasal cannula prior to this admission. Suspected that worsened respiratory status admission was due to COPD exacerbation. Started on IV steroids and scheduled DuoNebs on admission with some improvement. Was recently treated for antibiotics for suspected left lung pneumonia as noted below so antibiotics were held on admit. Patient did have worsening oxygenation status on 01/16, possibly due to mild volume overload from heart failure as noted below. Weaned back to nasal cannula on morning of 01/18 and appears close to baseline. Stable for transfer to PCU on 01/18. De-escalated to p.o. steroids and DuoNebs as needed on 01/19. Weaned to 6 L nasal cannula on 01/19 but on early 01/20 needed high flow nasal cannula likely due to mild volume overload, given dose of IV Lasix and home p.o. Lasix as well. Will wean back to low-flow nasal cannula when able. If stable on low-flow nasal cannula tomorrow, will be medically ready for discharge. 2. 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 Most recent echo on 12/30 showed EF 20 to 25%, severe generalized LV systolic dysfunction, moderately severe global RV systolic dysfunction. Stable blood pressure on admit and did not appear volume overloaded, was not in heart failure exacerbation. Had mild volume overload on 01/16 that improved with a few doses of IV Lasix. Given another dose of IV Lasix on morning of 01/20 and home p.o. Lasix restarted on 01/20. Holding home Coreg and lisinopril, will restart when able. 3. Persistent left lung opacity ? Chest x-ray on admit showed a persistent left lung opacity of unclear etiology. Patient was treated for pneumonia during recent previous hospitalization with improvement. No infectious symptoms noted on this admission so no further antibiotics were given. Unclear if lung opacity is due to previous pneumonia versus a possible new malignancy. EBUS with biopsy was recommended during previous hospitalization but patient has poor functional status and would not be able to tolerate chemotherapy, so this was not pursued. Per pulmonology, will follow-up repeat imaging in 6 weeks after discharge. 4. Acute on chronic debility ? PT/OT/case management following. Patient lives at home with and initial plan was to return home but patient has worsening weakness from baseline and there is significant concern about him returning home. Is accepted to [facility] and if medically ready tomorrow, will be ready for discharge there. Chronic medical conditions: ? History of CAD s/p stenting, hypertension, hyperlipidemia: Home blood pressure medications on hold given mild hypotension in setting of heart failure as noted above. Continue home statin. Continue home aspirin and Plavix. ? Type 2 diabetes mellitus with neuropathy: Blood sugars stable since admission. Continue insulin glargine 18 units at night and sign scale insulin with meals while inpatient. ? GERD: Continue home PPI. ? Depression: Continue home sertraline. ? BPH with obstructive symptoms: Continue home Flomax. DVT prophylaxis: Lovenox CODE STATUS: Full code, verified Expected disposition: SNF, 1 to 2 days Total clinical time spent by myself addressing the patient's medical issues, reviewing all the data, and collaborating with patient's care team: 35 minutes. Charges/Coding Visit Charges Inpatient E&M: 06098 Subs Hosp L2
[2024-01-21] MEDS: Insulin Lispro 100 UNIT/ML INSULN.PEN SC ×2 (12:29→21:05)
[2024-01-21 12:51] LABS: Bedside Glucose 173 mg/dL (74-106)
[2024-01-21 17:14] LABS: Bedside Glucose 155 mg/dL (74-106)
--- NOTE | 2024-01-21 17:40 | NURSING ---
daughter updated on poc
[2024-01-21] MEDS: Atorvastatin Calcium 80 MG Tablet PO (21:04)
[2024-01-21] MEDS: Insulin Glargine-YFGN 100 UNIT/ML Pen 18 UNIT SC (21:04)
[2024-01-21 22:04] LABS: Bedside Glucose 190 mg/dL (74-106)
[2024-01-22] VITALS (21 sets, daily range): BP systolic 95–113; BP diastolic 51–75; PULSE 88–102; RESP 12–24; TEMP 35.9–36.6; O2SAT 90–97; BMI 21.9
[2024-01-22] MEDS: Ipratropium/Albuterol Sulfate 3 ML AMPUL.NEB INHALATION ×4 (03:10→14:47)
[2024-01-22 06:30] LABS: Hematocrit 41.2 % (40-54); Hemoglobin 12.8 g/dL (13.0-16.5); Mean Corp Hgb Conc 31.1 g/dL (32-36); Mean Corpuscular Hgb 29.1 pg (27.0-32.0); Mean Corpuscular Volume 93.6 fL (80-94); Mean Platelet Vol. 10.4 fl (6.2-12.0); Platelet Count 109 K/mm3 (150-450); RBC Distribution Width CV 16.9 % (11.6-14.6); RBC Distribution Width SD 58.4 fl (35.1-43.9); White Blood Count 10.9 K/mm3 (4.4-11.0)
[2024-01-22] MEDS: Enoxaparin 40 MG/0.4 ML Syringe SC (06:36)
[2024-01-22] MEDS: Menthol/Lanolin/Calamine/Znox 113 GM Tube 1 APPLIC TOPICAL ×2 (06:37→14:33)
[2024-01-22 06:48] LABS: Anion Gap 4 (5-15); BUN 40 mg/dL (7-18); BUN/Creat Ratio 28.4 RATIO (10-20); Calcium,Total 9.1 mg/dL (8.5-10.1); Chloride 103 mmol/L (98-107); Creatinine, Serum 1.41 mg/dL (0.70-1.30); EST Glomerular Filtration Rate 52 mL/min (>60); Est Glom Filt Rate - Afr Amer 63 mL/min (>60); Estimated Creatinine Clearance 42.38 ml/min; Glucose 88 mg/dL (74-106); Potassium 3.7 mmol/L (3.5-5.1); Sodium Level 139 mmol/L (136-145)
[2024-01-22] MEDS: HYDROcodone Bitartrate/Apap 5/325 Tablet PO ×2 (06:54→14:33)
[2024-01-22 06:58] LABS: Bedside Glucose 88 mg/dL (74-106)
--- NOTE | 2024-01-22 09:15 | PN.CC_ITS ---
Assessment & Plan Assessment/Plan (1) Acute respiratory failure with hypoxia and hypercapnia: PLAN: Plan RECOMMENDATIONS: 1. Continue PAP therapy with naps and nightly. 2. Supplemental oxygen to maintain saturations at or above 90%. 3. Continue bronchodilators and steroids as ordered. Recommend prednisone taper at discharge. 4. Continue diuretics as tolerated by hemodynamics and renal function. 5. Continue appropriate DVT prophylaxis. 6. Recommend outpatient pulmonary follow-up after discharge. 7. Recommend repeat chest imaging be completed in 6 weeks. 8. Baseline PFTs need to be obtained. 9. Encourage incentive spirometer use and mobilize patient as tolerated. IMPRESSIONS: 1. Acute on chronic combined respiratory failure Most likely multifactorial in etiology. Please refer to my prior hospital note for recommendations. I suspect that the patient has underlying COPD which is suboptimally treated along with chronic CO2 retention, and it appears the patient was utilizing opiate pain medications. In addition, he is at high risk for aspiration, given a known history of esophageal stenosis requiring dilation. He was just hospitalized with concern for underlying pneumonia and has completed an antibiotic treatment course. The chest imaging noted at presentation appears similar to that completed in December. I have recommended that outpatient follow-up chest imaging be completed in 6 weeks. There is no need for additional antibiotics at the present time. While the patient would be a candidate for PAP therapy, he would first need to establish care in the pulmonary medicine office so that PFTs can be obtained. This was all recommended during his prior hospitalization, but it does not appear that a follow-up pulmonary appointment was ever made. In the interim, continue scheduled bronchodilators, corticosteroids and diuretics as tolerated by hemodynamics and renal function. 2. History of tobacco dependency/coronary artery disease/heart failure with reduced ejection fraction/chronic kidney disease/diabetes mellitus/history of esophageal stenosis Complicates care, management, recovery and prognosis. Continue current supportive care as noted above. This note was generated with [employer] dictation software. It may contain incorrect words, spelling, and punctuation that were not noted in checking the note before signing. Subjective Subjective The patient was seen and examined at the bedside this morning. Events from the last 24 hours have been reviewed. The patient is currently afebrile, hemodynamically stable and maintaining appropriate oxygen saturations on heated high flow with an FiO2 requirement of 54%. The patient remains on scheduled bronchodilators, prednisone and Lasix. White count is normal this morning. Creatinine is stable at 1.4. Objective Data Objective Data The patient's most recent lab work, culture data and imaging studies have all been personally reviewed. COVID, influenza and RSV PCR's were negative. Surface echocardiogram from December 2023 demonstrated an ejection fraction of 20 to 25% with stage I diastolic dysfunction. Vital Signs: Vital Signs Temp Pulse Resp BP Pulse Ox O2 Del Method O2 Flow Rate 97.6 F L 90 20 H 101/70 96 Bi-pap 60 01/22/24 06:38 01/22/24 06:38 01/22/24 06:38 01/22/24 06:38 01/22/24 06:38 01/22/24 06:38 01/21/24 21:30 FiO2 40 01/22/24 06:38 Oxygen Flow Rate (L/min) 60 Oxygen Delivery Method Bi-pap Weight: 148 lb 3.2 oz Body Mass Index (BMI) 21.9 Intake & Output: Intake and Output for Last 24 Hours 01/20/24 01/21/24 01/22/24 23:59 23:59 23:59 Intake Total 480 / 720 1090 / 1210 120 / 120 Output Total 1025 / 1350 1775 / 2175 700 / 700 Balance -545 / -630 -685 / -965 -580 / -580 Lab / Micro Data Attestation: I reviewed the patient's lab results. 01/22/24 05:50 01/22/24 05:50 Labs: Laboratory Results - last 24 hr 01/21/24 12:28: POC Glucose 173 H 01/21/24 16:53: POC Glucose 155 H 01/21/24 21:03: POC Glucose 190 H 01/22/24 05:50: WBC 10.9, RBC 4.40 L, Hgb 12.8 L, Hct 41.2, MCV 93.6, MCH 29.1, MCHC 31.1 L, RDW Std Deviation 58.4 H, RDW Coeff of Audi 16.9 H, Plt Count 109 L, MPV 10.4, Sodium 139, Potassium 3.7, Chloride 103, Carbon Dioxide 32.0, Anion Gap 4 L, BUN 40 H, Creatinine 1.41 H, Estim Creat Clear Calc 42.38, Est GFR (MDRD) Af Amer 63, Est GFR (MDRD) Non-Af 52 L, BUN/Creatinine Ratio 28.4 H, Glucose 88, Calcium 9.1 01/22/24 06:34: POC Glucose 88 Micro: Microbiology 01/15/24 15:34 Mucosa - Nasopharyngeal SARS-CoV-2, Influenza & RSV (PCR) - Final Radiography Diagnostic Testing: Radiology Impression Chest X-Ray 01/18/24 06:38 IMPRESSION: Improved aeration in the left hemithorax with the new infiltrates in the right lung. There is blunting of both costophrenic angles. Electronically Signed: Randolph Joyce MD at 8:20 EDT , Rhythm Strip Rhythm Strip: Sinus Rhythm Rate: 95 Ectopy: None Physical Exam Const alert and no apparent distress General Appearance: cooperative HEENT normocephalic, head/scalp atraumatic and moist oral mucous membranes General Ear: hearing grossly impaired Eyes PERRL, EOMs intact bilaterally and conjunctivae normal Neck supple General: trachea midline Chest inspection of chest normal Resp Auscultation: wheezes throughout and diminished lung sounds; Negative for rales or rhonchi Cardio regular rate and regular rhythm GI normal to inspection, nondistended, normoactive bowel sounds Extremity General Extremity: edema; Negative for clubbing Skin no rashes or lesions noted Neuro CN's II-XII intact bilaterally, moves all extremities and no focal motor deficits Psych Mood & Affect: flat affect Charges/Coding Visit Charges Inpatient E&M: 79084 Subs Hosp L2
[2024-01-22] MEDS: Sertraline 100 MG Tablet PO (09:26)
[2024-01-22] MEDS: Pantoprazole Sodium 40 MG Tablet PO (09:26)
[2024-01-22] MEDS: predniSONE 20 MG Tablet 40 MG PO (09:27)
[2024-01-22] MEDS: Tamsulosin HCl 0.4 MG Capsule PO (09:27)
[2024-01-22] MEDS: Clopidogrel Bisulfate 75 MG Tablet PO (09:27)
[2024-01-22] MEDS: Aspirin E.C. 81 MG Tablet PO (09:27)
[2024-01-22] MEDS: Furosemide 20 MG Tablet PO (09:27)
[2024-01-22] MEDS: 0.9% Saline Lock 10 ML Syringe IV (09:33)
[2024-01-22] MEDS: Gabapentin 100 MG Capsule PO ×2 (09:33→11:41)
--- NOTE | 2024-01-22 10:33 | CASEMGMT ---
Discharge Planning Updates sent to [facility] via [facility]. Rebecca Sloan DC Planning Asst.
[2024-01-22] MEDS: guaiFENesin 1,200 MG Tablet 1200 MG PO (11:41)
[2024-01-22 12:16] LABS: Bedside Glucose 108 mg/dL (74-106)
--- NOTE | 2024-01-22 12:53 | TREXTCAR_ITS ---
Diet Diet Order/Speech Therapy: 01/16/24 09:57 Diet: Carbohydrate Controlled Dietary Modifications:: Cardiac / Heart Healthy Sodium Restricted Routine Orders/Code Status O2 Liters per Minute: 4-6 O2 Frequency: Continuous Keep PO Greater than or Equal to (%): 88 Routine Lab Work: BMP (Repeat in 1 week to check kidney function) Code Status: Full Code Wound(s) buttocks: Wound Type: Pressure Injury Therapies Weight Bearing: Full weight bearing Physical Therapy: Eval and Treat Occupational Therapy: Eval and Treat Problem/Diagnosis (1) Acute respiratory failure with hypoxia and hypercapnia: Status: Acute Code(s): J96.01 - Acute respiratory failure with hypoxia; J96.02 - Acute respiratory failure with hypercapnia Plan Patient is a 78-year-old male who presented to [facility] ED on 01/15/2024 with altered mental status. Hospital course as noted below. Patient discharged to SNF at [facility] in stable condition on 01/21. 1. Acute on chronic hypoxic and hypercapnic respiratory failure with concern for COPD exacerbation, improved ? Rig Welder followed. Presented with altered mental status, was found to be hypoxic and hypercapnic on arrival. Improved with BiPAP, did not require intubation. Was on 4 L nasal cannula prior to this admission. Suspected that worsened respiratory status admission was due to COPD exacerbation. Started on IV steroids and scheduled DuoNebs on admission with some improvement. Was recently treated for antibiotics for suspected left lung pneumonia as noted below so antibiotics were held on admit. Patient did have worsening oxygenation status on 01/16, possibly due to mild volume overload from heart failure as noted below. Weaned back to nasal cannula on morning of 01/18 and appears close to baseline. Stable for transfer to PCU on 01/18. De-escalated to p.o. steroids and DuoNebs as needed on 01/19. Home Lasix resumed on 01/20. Weaned to 6 L nasal cannula by 01/21 and remaining stable on this. Stable for discharge to custodial facility on 01/21. 2. 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 Most recent echo on 12/30 showed EF 20 to 25%, severe generalized LV systolic dysfunction, moderately severe global RV systolic dysfunction. Stable blood pressure on admit and did not appear volume overloaded, was not in heart failure exacerbation. Had mild volume overload on 9/11 that improved with a few doses of IV Lasix. Given another dose of IV Lasix on morning of 01/20 and home p.o. Lasix restarted on 01/20. Held home Coreg and lisinopril while hospitalized. Okay to restart home Coreg 3.125 mg twice daily on discharge but will continue to hold lisinopril on discharge. 3. Persistent left lung opacity ? Chest x-ray on admit showed a persistent left lung opacity of unclear etiology. Patient was treated for pneumonia during recent previous hospitalization with improvement. No infectious symptoms noted on this admission so no further antibiotics were given. Unclear if lung opacity is due to previous pneumonia versus a possible new malignancy. EBUS with biopsy was recommended during previous hospitalization but patient has poor functional status and would not be able to tolerate chemotherapy, so this was not pursued. Per pulmonology, will follow-up repeat imaging in 6 weeks after discharge. 4. Acute on chronic debility ? PT/OT/case management followed. Patient lives at home with and initial plan was to return home but patient has worsening weakness from baseline and there is significant concern about him returning home. Discharged to SNF in stable condition on 01/21. Chronic medical conditions: ? History of CAD s/p stenting, hypertension, hyperlipidemia: Home blood pressure medications on hold given mild hypotension in setting of heart failure as noted above. Continue home statin. Continue home aspirin and Plavix. ? Type 2 diabetes mellitus with neuropathy: Blood sugars stable since admission. Continue insulin glargine 18 units at night and sign scale insulin with meals while inpatient. ? GERD: Continue home PPI. ? Depression: Continue home sertraline. ? BPH with obstructive symptoms: Continue home Flomax. Total clinical time spent by myself addressing the patient's medical issues, reviewing all the data, and collaborating with patient's care team: 35 minutes. Allergies/Procedures Done in Hospital Allergies No Known Allergies Allergy (Verified 12/31/23 11:35) Procedures: - (Chest x-ray x 3, CT brain) Type of Care/Length of Stay Estimated LOS: Convalescent Care Less Than 30 days Type of Care Needed: Skilled Rehab Potential: Fair Prognosis: Fair Additional Orders/Day of Discharge H&P will serve as current which was dated: 01/15/24 Day of Discharge: 01/22/24 Dietary and Speech Recommendations Dietitian Recommendations/Changes: Consistent Carbohydrate; Cardiac diet. Will add PO glucerna shake as needed if PO declines at meals. Discharge Plan Admission Admit Date/Time: 01/15/24 16:39 Primary Reason for Your Visit: COPD exacerbation Attending Provider: Gera Aden Primary Care Provider: Mich Rosales Consulting Providers: Christofer Hernandez; Mich Roberts; José Manuel Bailey; Juan Sanders; Prashanth Wood; Rihcard Poon; Otf Rolon; Brock Kumar; Sharon Sin; Jackson Lopez; Yehuda Donato; Suzanna Stanley; Rosario Cuadra; Tan Lora; Guido Gupta; Sree Haq; Madhavi Sarmiento; Edgar Lara; Alex Farley Discharge Orders/Prescriptions Prescriptions: New gabapentin 100 mg Capsule 100 mg PO TIDCM Qty: 0 0RF insulin lispro [Humalog KwikPen Insulin] 100 unit/mL Insulin Pen See Protocol subcut ACHS Qty: 0 0RF Protocol: 4. Sliding Scale Insulin High-Med Dosing Condition: 150-199 mg/dl = 2 units Condition: 200-259 mg/dl = 4 units Condition: 260-324 mg/dl = 6 units Condition: 325-374 mg/dl = 8 units Condition: 375-409 mg/dl = 10 units Condition: 410-449 mg/dl = 11 units Condition: Greater than 449 call physician Protocol Text: Suggested for: - Patients on Total Daily Insulin Dose of 56-80 units - Patient who are known to be insulin resistant or septic HIGH MEDIUM DOSING ALGORITHM Continued sertraline 50 MG tablet 100 mg PO DAILY glipizide 5 MG tablet 5 mg PO .BEFORE MEALS clopidogrel 75 MG tablet 75 mg PO DAILY 0RF carvedilol 3.125 MG tablet 3.125 mg PO BID 0RF Asmanex HFA 200 mcg/actuation HFA aerosol inhaler 2 puff inhalation BID cyanocobalamin (vitamin B-12) 1,000 mcg capsule 1,000 mcg PO DAILY cholecalciferol (vitamin D3) 25 mcg (1,000 unit) capsule 75 mcg PO DAILY aspirin [Adult Aspirin Regimen] 81 mg tablet,delayed release (DR/EC) 81 mg PO DAILY insulin glargine 100 unit/mL solution 18 unit subcut QHS 30 Days Qty: 0 0RF Rx Instructions: Hold if glucose less than 130 mg/dl pantoprazole [Protonix] 40 mg tablet,delayed release (DR/EC) 40 mg PO BID 30 Days Qty: 60 2RF albuterol sulfate 2.5 mg /3 mL (0.083 %) solution for nebulization 2.5 mg inhalation Q4H PRN PRN (Reason: wheezing) nitroglycerin 0.4 mg tablet, sublingual 0.4 mg sublingual Q5M PRN (Reason: chest pain) Rx Instructions: 0.4 mg every 5-15 minutes as needed for chest pain; do not exceed 3 doses per episode guaifenesin 1,200 mg tablet extended release 12hr 1,200 mg PO BID Spiriva Respimat 2.5 mcg/actuation mist 2 inh inhalation DAILY tamsulosin [Flomax] 0.4 mg capsule 0.4 mg PO DAILY Stiolto Respimat 2.5-2.5 mcg/actuation mist 2 inh inhalation DAILY rosuvastatin [Crestor] 40 mg tablet 40 mg PO QHS Asmanex HFA 200 mcg/actuation HFA aerosol inhaler 2 inh inhalation BID furosemide 20 mg tablet 20 mg PO DAILY Rx Instructions: Take extra 20 mg dose at 5 PM for increased leg swelling or weight gain 5 pounds in 1 week. hydrocodone-acetaminophen 5-325 mg tablet 1 tab PO Q8H PRN PRN (Reason: pain) budesonide-formoterol [Breyna] 160-4.5 mcg/actuation HFA aerosol inhaler 2 inh inhalation BID Held lisinopril 5 mg tablet 5 mg PO DAILY Hold Instructions: Resume on 02/12/24. Please discuss with your improvement intern prior to resuming this medication. Discontinued insulin lispro [Humalog KwikPen Insulin] 100 unit/mL Insulin Pen 5 unit subcut TIDAC 30 Days Qty: 15 3RF Rx Instructions: Hold if glucose less than 130 mg/dl prednisone 20 mg Tablet 40 mg PO BREAKFAST Qty: 6 0RF amlodipine 10 mg tablet 5 mg PO DAILY gabapentin 400 mg capsule 400 mg PO TID Referrals / Follow Up: Prashanth Wood DO [Med Staff - Active Staff] - 04/19/24 2:45 pm Mich Rosales MD [Primary Care Provider] - Disposition Disposition (needs filled in before D/C Order can be placed): [facility]
--- NOTE | 2024-01-22 12:55 | CASEMGMT ---
[facility] said they have an O2 concentrator that goes up to 10L. Patient required 6L at rest and then 8L with therapy. Physician plans to discharge patient to [facility] today. SW notified [facility] via [employer]. Await d/c instructions. Chen Ma NAILHEAD OPERATORAyleen HERNANDEZ
--- NOTE | 2024-01-22 13:11 | PCM.DC.SUM ---
Providers Date of Admission: 01/15/24 Date of Discharge: 01/22/24 Primary Care Physician: Dr. Mich Rosales MD Consultations 01/15/24 21:32 Consult: Knit Goods Mender / Pulmonary Medicine Routine Consulting Provider: Intensivists/Pulmonary Med Reason for Consult: Hypoxic and hypercapnic resp failure EMERGENT Consult: No MD Notified: Yes Date Notified: 01/15/24 Time Notified: 16:58 Method of Notification: Text Reason For Visit: HYPOXIC & HYPERCAPNIC RESPIRATORY FAILURE Diagnosis Discharge Diagnosis (1) Acute respiratory failure with hypoxia and hypercapnia: Status: Acute Code(s): J96.01 - Acute respiratory failure with hypoxia; J96.02 - Acute respiratory failure with hypercapnia Medications at Discharge Home Medications glipizide 5 mg tablet 5 mg PO .BEFORE MEALS DM 08/20/18 sertraline 50 mg tablet 100 mg PO DAILY DEPRESSION 08/20/18 carvedilol 3.125 mg tablet 3.125 mg PO BID blood pressure 08/21/18 clopidogrel 75 mg tablet 75 mg PO DAILY anti platelet 08/21/18 cholecalciferol (vitamin D3) 25 mcg (1,000 unit) capsule 75 mcg PO DAILY vitamin 12/30/22 cyanocobalamin (vitamin B-12) 1,000 mcg capsule 1,000 mcg PO DAILY vitamin 12/30/22 mometasone 200 mcg/actuation HFA aerosol inhaler (Asmanex HFA) 2 puff inhalation BID breathing 12/30/22 aspirin 81 mg tablet,delayed release (Adult Aspirin Regimen) 81 mg PO DAILY heart meera 12/05/23 insulin glargine 100 unit/mL subcutaneous solution 18 unit (0.18 mL) subcut QHS bg 30 days #0 mL 12/15/23 pantoprazole 40 mg tablet,delayed release (Protonix) 40 mg PO BID stomach 30 days #60 tabs 12/15/23 albuterol sulfate 2.5 mg/3 mL (0.083 %) solution for nebulization 2.5 mg inhalation Q4H PRN PRN wheezing 01/16/24 budesonide-formoterol HFA 160 mcg-4.5 mcg/actuation aerosol inhaler (Breyna) 2 inh inhalation BID copd 01/16/24 furosemide 20 mg tablet 20 mg PO DAILY chf 01/16/24 guaifenesin 1,200 mg tablet, extended release 12 hr 1,200 mg PO BID cough 01/16/24 hydrocodone-acetaminophen 5-325mg 5mg-325mg 1 tab PO Q8H PRN PRN pain 01/16/24 lisinopril 5 mg tablet 5 mg PO DAILY heart 01/16/24 mometasone 200 mcg/actuation HFA aerosol inhaler (Asmanex HFA) 2 inh inhalation BID copd 01/16/24 nitroglycerin 0.4 mg sublingual tablet 0.4 mg sublingual Q5M PRN chest pain 01/16/24 rosuvastatin 40 mg tablet (Crestor) 40 mg PO QHS cholestrol 01/16/24 tamsulosin 0.4 mg capsule (Flomax) 0.4 mg PO DAILY bph 01/16/24 tiotropium 2.5 mcg-olodaterol 2.5 mcg/actuation mist for inhalation (Stiolto Respimat) 2 inh inhalation DAILY copd 01/16/24 tiotropium bromide 2.5 mcg/actuation mist for inhalation (Spiriva Respimat) 2 inh inhalation DAILY copd 01/16/24 gabapentin 100 mg capsule 100 mg PO TIDCM #0 caps 01/22/24 insulin lispro 100 unit/mL subcutaneous pen (Humalog KwikPen (U-100) Insulin) See Protocol subcut ACHS #0 mL 01/22/24 Hospital Course Operations None Procedures EKG and - (Chest x-ray x 3, CT brain) Summary of Care Provided Minutes Spent on Discharge: 35 Hospital Course: Patient is a 78-year-old male who presented to [facility] ED on 01/15/2024 with altered mental status. Hospital course as noted below. Patient discharged to SNF at [facility] in stable condition on 01/21. 1. Acute on chronic hypoxic and hypercapnic respiratory failure with concern for COPD exacerbation, improved ? 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 Presented with altered mental status, was found to be hypoxic and hypercapnic on arrival. Improved with BiPAP, did not require intubation. Was on 4 L nasal cannula prior to this admission. Suspected that worsened respiratory status admission was due to COPD exacerbation. Started on IV steroids and scheduled DuoNebs on admission with some improvement. Was recently treated for antibiotics for suspected left lung pneumonia as noted below so antibiotics were held on admit. Patient did have worsening oxygenation status on 01/16, possibly due to mild volume overload from heart failure as noted below. Weaned back to nasal cannula on morning of 01/18 and appears close to baseline. Stable for transfer to PCU on 01/18. De-escalated to p.o. steroids and DuoNebs as needed on 01/19. Home Lasix resumed on 01/20. Weaned to 6 L nasal cannula by 01/21 and remaining stable on this. Stable for discharge to snf facility on 01/21. ? Importantly, patient needs to wear BiPAP with naps and at night to avoid becoming hypercapnic and developing respiratory failure. BiPAP settings while here were 14/6 with 40% FiO2 and rate of 12. Patient will follow-up with pulmonology in the office shortly after discharge from SNF to formally qualify for PAP therapy at home. 2. 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 Most recent echo on 12/30 showed EF 20 to 25%, severe generalized LV systolic dysfunction, moderately severe global RV systolic dysfunction. Stable blood pressure on admit and did not appear volume overloaded, was not in heart failure exacerbation. Had mild volume overload on 01/16 that improved with a few doses of IV Lasix. Given another dose of IV Lasix on morning of 01/20 and home p.o. Lasix restarted on 01/20. Held home Coreg and lisinopril while hospitalized. Okay to restart home Coreg 3.125 mg twice daily on discharge but will continue to hold lisinopril on discharge. 3. Persistent left lung opacity ? Chest x-ray on admit showed a persistent left lung opacity of unclear etiology. Patient was treated for pneumonia during recent previous hospitalization with improvement. No infectious symptoms noted on this admission so no further antibiotics were given. Unclear if lung opacity is due to previous pneumonia versus a possible new malignancy. EBUS with biopsy was recommended during previous hospitalization but patient has poor functional status and would not be able to tolerate chemotherapy, so this was not pursued. Per pulmonology, will follow-up repeat imaging in 6 weeks after discharge. 4. Acute on chronic debility ? PT/OT/case management followed. Patient lives at home with and initial plan was to return home but patient has worsening weakness from baseline and there is significant concern about him returning home. Discharged to SNF in stable condition on 01/21. Chronic medical conditions: ? History of CAD s/p stenting, hypertension, hyperlipidemia: Home blood pressure medications on hold given mild hypotension in setting of heart failure as noted above. Continue home statin. Continue home aspirin and Plavix. ? Type 2 diabetes mellitus with neuropathy: Blood sugars stable since admission. Continue insulin glargine 18 units at night and sign scale insulin with meals while inpatient. ? GERD: Continue home PPI. ? Depression: Continue home sertraline. ? BPH with obstructive symptoms: Continue home Flomax. Total clinical time spent by myself addressing the patient's medical issues, reviewing all the data, and collaborating with patient's care team: 35 minutes. Physical Exam Const alert, oriented x3, no apparent distress and average body habitus Constitutional Narrative: Elderly male, chronically ill-appearing, breathing comfortably on 6 L nasal cannula, sitting up comfortably in bedside chair, conversing normally. Stable. General Appearance: cooperative and comfortable HEENT normocephalic, head/scalp atraumatic, hearing grossly normal bilaterally and nasal mucous membranes and turbinates normal Eyes PERRL, EOMs intact bilaterally and conjunctivae normal Neck full ROM Chest inspection of chest normal Resp Resp Narrative: Improving. Breathing comfortably on 6 L nasal cannula at rest with oxygen saturations in the low 90s. Continued decreased breath bilaterally, worse on the left but stable from previous days. No wheezing or crackles noted. Cardio regular rate, regular rhythm, no murmurs and peripheral pulses 2+ throughout GI normal to inspection, nondistended, normoactive bowel sounds, soft to palpation, non-tender and non-distended Back/Spine normal ROM Extremity normal to inspection Extremity Narrative: +1-2 lower extremity edema bilaterally, stable. Skin no rashes or lesions noted Neuro no focal motor deficits and no sensory deficits noted Speech: speech normal Psych mental status grossly normal Weight / BMI Weight Weight: 67.222 kg Body Mass Index (BMI) 21.9 ABG / Lab / Microbiology Data 01/22/24 05:50 01/22/24 05:50 Laboratory: Laboratory Results - last 24 hr 01/21/24 16:53: POC Glucose 155 H 01/21/24 21:03: POC Glucose 190 H 01/22/24 05:50: WBC 10.9, RBC 4.40 L, Hgb 12.8 L, Hct 41.2, MCV 93.6, MCH 29.1, MCHC 31.1 L, RDW Std Deviation 58.4 H, RDW Coeff of Audi 16.9 H, Plt Count 109 L, MPV 10.4, Sodium 139, Potassium 3.7, Chloride 103, Carbon Dioxide 32.0, Anion Gap 4 L, BUN 40 H, Creatinine 1.41 H, Estim Creat Clear Calc 42.38, Est GFR (MDRD) Af Amer 63, Est GFR (MDRD) Non-Af 52 L, BUN/Creatinine Ratio 28.4 H, Glucose 88, Calcium 9.1 01/22/24 06:34: POC Glucose 88 01/22/24 11:31: POC Glucose 108 H Microbiology: Microbiology 01/15/24 15:34 Mucosa - Nasopharyngeal SARS-CoV-2, Influenza & RSV (PCR) - Final Meaningful Use Info Meaningful Use Meaningful Use Diagnoses (Choose all that apply): None applicable Ischemic Stroke Statin Dosing Therapy Reference: STATIN DOSE THERAPY REFERENCE: * Patients > 75 years receive moderate or high dose statin therapy. * Patients 75 years or YOUNGER should receive HIGH intensity statin dose unless contraindicated. You will be required to document reason for non-treatment if statin daily dose does not meet guidelines. HIGH DOSE STATIN THERAPY DAILY Atorvastatin > than or = to 40 mg Rosuvastatin > than or = to 20 mg Amlodipine + Atorvastatin > than or = to 2.5/40 mg Ezetimibe + Simvastatin 10/80 mg Simvastatin 80mg Discharge Plan Admission Admit Date/Time: 01/15/24 16:39 Primary Reason for Your Visit: COPD exacerbation Attending Provider: Gera Aden Primary Care Provider: Mich Rosales Consulting Providers: Christofer Hernandez; Mich Roberts; José Manuel Bailey; Juan Sanders; Prashanth Wood; Richard Poon; Otf Rolon; Brock Kumar; Sharon Sin; Jackson Lopez; Yehuda Donato; Suzanna Stanley; Rosario Cuadra; Tan Lora; Guido Gupta; Sree Haq; Madhavi Sarmiento; Edgar Lara; Alex Farley Discharge Orders/Prescriptions Prescriptions: New gabapentin 100 mg Capsule 100 mg PO TIDCM Qty: 0 0RF insulin lispro [Humalog KwikPen Insulin] 100 unit/mL Insulin Pen See Protocol subcut ACHS Qty: 0 0RF Protocol: 4. Sliding Scale Insulin High-Med Dosing Condition: 150-199 mg/dl = 2 units Condition: 200-259 mg/dl = 4 units Condition: 260-324 mg/dl = 6 units Condition: 325-374 mg/dl = 8 units Condition: 375-409 mg/dl = 10 units Condition: 410-449 mg/dl = 11 units Condition: Greater than 449 call physician Protocol Text: Suggested for: - Patients on Total Daily Insulin Dose of 56-80 units - Patient who are known to be insulin resistant or septic HIGH MEDIUM DOSING ALGORITHM Continued sertraline 50 MG tablet 100 mg PO DAILY glipizide 5 MG tablet 5 mg PO .BEFORE MEALS clopidogrel 75 MG tablet 75 mg PO DAILY 0RF carvedilol 3.125 MG tablet 3.125 mg PO BID 0RF Asmanex HFA 200 mcg/actuation HFA aerosol inhaler 2 puff inhalation BID cyanocobalamin (vitamin B-12) 1,000 mcg capsule 1,000 mcg PO DAILY cholecalciferol (vitamin D3) 25 mcg (1,000 unit) capsule 75 mcg PO DAILY aspirin [Adult Aspirin Regimen] 81 mg tablet,delayed release (DR/EC) 81 mg PO DAILY insulin glargine 100 unit/mL solution 18 unit subcut QHS 30 Days Qty: 0 0RF Rx Instructions: Hold if glucose less than 130 mg/dl pantoprazole [Protonix] 40 mg tablet,delayed release (DR/EC) 40 mg PO BID 30 Days Qty: 60 2RF albuterol sulfate 2.5 mg /3 mL (0.083 %) solution for nebulization 2.5 mg inhalation Q4H PRN PRN (Reason: wheezing) nitroglycerin 0.4 mg tablet, sublingual 0.4 mg sublingual Q5M PRN (Reason: chest pain) Rx Instructions: 0.4 mg every 5-15 minutes as needed for chest pain; do not exceed 3 doses per episode guaifenesin 1,200 mg tablet extended release 12hr 1,200 mg PO BID Spiriva Respimat 2.5 mcg/actuation mist 2 inh inhalation DAILY tamsulosin [Flomax] 0.4 mg capsule 0.4 mg PO DAILY Stiolto Respimat 2.5-2.5 mcg/actuation mist 2 inh inhalation DAILY rosuvastatin [Crestor] 40 mg tablet 40 mg PO QHS Asmanex HFA 200 mcg/actuation HFA aerosol inhaler 2 inh inhalation BID furosemide 20 mg tablet 20 mg PO DAILY Rx Instructions: Take extra 20 mg dose at 5 PM for increased leg swelling or weight gain 5 pounds in 1 week. hydrocodone-acetaminophen 5-325 mg tablet 1 tab PO Q8H PRN PRN (Reason: pain) budesonide-formoterol [Breyna] 160-4.5 mcg/actuation HFA aerosol inhaler 2 inh inhalation BID Held lisinopril 5 mg tablet 5 mg PO DAILY Hold Instructions: Resume on 02/12/24. Please discuss with your research program manager prior to resuming this medication. Discontinued insulin lispro [Humalog KwikPen Insulin] 100 unit/mL Insulin Pen 5 unit subcut TIDAC 30 Days Qty: 15 3RF Rx Instructions: Hold if glucose less than 130 mg/dl prednisone 20 mg Tablet 40 mg PO BREAKFAST Qty: 6 0RF amlodipine 10 mg tablet 5 mg PO DAILY gabapentin 400 mg capsule 400 mg PO TID Referrals / Follow Up: Prashanth Wood DO [Med Staff - Active Staff] - 04/19/24 2:45 pm Mich Rosales MD [Primary Care Provider] - Disposition Disposition (needs filled in before D/C Order can be placed): [facility]-Way Facility Charges/Coding Visit Charges Inpatient E&M: 30332 Disch Hosp >30min
--- NOTE | 2024-01-22 14:09 | CASEMGMT ---
Patient is ready for discharge to [facility]. PASRR was completed. Plan: d/c to [facility] under skilled level of care on a PASRR. Chen HERNANDEZ
--- NOTE | 2024-01-22 14:47 | CASEMGMT ---
Updates sent to [facility] via [facility] regarding pt plan to DC to [facility].
--- NOTE | 2024-01-22 14:47 | CASEMGMT ---
Discharge Planning Discharge orders, signed med list, and transport time sent to [facility] via [facility]. Physicians will transport patient by wheelchair at 3p. Nursing, SW, and patients daughter updated. Rebecca Sloan DC Planning Asst
--- NOTE | 2024-01-22 14:51 | NURSING ---
Report called to REGLA Curry at 1425 at [facility].
--- NOTE | 2024-01-23 15:26 | CASEMGMT ---
Received VM from Stephenie at the [facility] asking about DC plan for pt. Called and left a message for Stephenie with patient DC update.
== END 2024-01-22 15:34 | disposition skilled nursing facility (03) | DRG 190 ==
LOC: ED 16:41 → ICU 23:13 → PCU 01-20 11:42
PROVIDERS: Internal Medicine; Internal Medicine Critical Care Medicine; Admitting Provider Family Medicine; Emergency Provider Emergency Medicine; PCP Family Medicine; Visit Provider Hospitalist
DX: J44.1 Chronic obstructive pulmonary disease with (acute) exacerbation (principal); J96.21 Acute and chronic respiratory failure with hypoxia; I50.23 Acute on chronic systolic (congestive) heart failure; J96.22 Acute and chronic respiratory failure with hypercapnia; I13.0 Hypertensive heart and chronic kidney disease with heart failure and stage 1 through stage 4 chronic kidney disease, or unspecified chronic kidney disease; E87.29 Other acidosis; E11.22 Type 2 diabetes mellitus with diabetic chronic kidney disease; N18.31 Chronic kidney disease, stage 3a; F32.A Depression, unspecified; E11.40 Type 2 diabetes mellitus with diabetic neuropathy, unspecified; E78.5 Hyperlipidemia, unspecified; I25.10 Atherosclerotic heart disease of native coronary artery without angina pectoris; Z79.4 Long term (current) use of insulin; K20.90 Esophagitis, unspecified without bleeding; J98.4 Other disorders of lung; F41.9 Anxiety disorder, unspecified; Z79.891 Long term (current) use of opiate analgesic; Z95.5 Presence of coronary angioplasty implant and graft; Z79.84 Long term (current) use of oral hypoglycemic drugs; G89.29 Other chronic pain; Z87.891 Personal history of nicotine dependence; Z79.82 Long term (current) use of aspirin; Z79.02 Long term (current) use of antithrombotics/antiplatelets; N40.0 Benign prostatic hyperplasia without lower urinary tract symptoms
CPT/HCPCS: 36415; 36600; 70450; 71045; 80048; 80053; 80307; 81001; 82077; 82550; 82803; 82962; 83605; 83880; 84484; 85025; 85027; 87631; 93005; 94002; 94003; 94640; 94660; 94762; 97110; 97162; 97166; 97530; 97535; 97802; 99284; J7030; J7040; J7050; A4216; J1940

== ENCOUNTER 2024-01-24 15:25 | Inpatient (IN) | payer OTHER, SELFPAY ==
[2024-01-24] VITALS (24 sets, daily range): BP systolic 98–125; BP diastolic 46–90; PULSE 83–96; RESP 12–225; TEMP 36–36.6; O2SAT 81–100; BMI 21.4
--- NOTE | 2024-01-24 15:35 | ED.RN ---
1 amp of D50 given via verbal order from Dr. Colmenares
--- NOTE | 2024-01-24 15:43 | EKG12_ITS ---
Test Reason : ALT LOC Blood Pressure : / mmHG Vent. Rate : 092 BPM Atrial Rate : 092 BPM P-R Int : 142 ms QRS Dur : 146 ms QT Int : 394 ms P-R-T Axes : 064 059 227 degrees QTc Int : 487 ms Sinus rhythm with occasional Premature ventricular complexes Left bundle branch block Abnormal ECG Confirmed by Lokesh Solorio ([id number]), story editor VIRGILIO RINALDI ([id number]) on 01/29/2024 10:22:24 AM Referred By: Confirmed By:Lokesh Solorio
--- NOTE | 2024-01-24 15:49 | EDS_ITS ---
HPI History of Present Illness Chief Complaint: Unresponsive Informant: patient, EMS and SNF Narrative Narrative: 78-year-old diabetic male presenting to the emergency room with altered mental status. Patient was reportedly found unresponsive by nursing staff at the SNF. He was placed on BiPAP. EMS notes hypoglycemia and they administered glucagon IM and started D10 through IV in the left arm. Unfortunately this appeared infiltrated. Reportedly the patient was admitted and discharged on 01/22/2024. He is a full code. Possible history of COPD as well as CHF. [facility] Medical History CHF exacerbation CAD (coronary artery disease) Heart failure with reduced ejection fraction Chronic kidney disease HTN (hypertension) Dysphagia Hearing loss, left Hearing loss, right Anxiety Diabetes Chronic pain Kidney stones Kidney disease Former smoker Sleep apnea COPD (chronic obstructive pulmonary disease) Chest pain Myocardial infarct Hypertension DVT (deep venous thrombosis) Unable to walk Acute kidney injury Home Medications ?Medication ?Instructions ?Recorded ?Last Taken ?Type glipizide 5 mg tablet 5 mg PO .BEFORE MEALS DM 08/20/18 12/05/23 History sertraline 50 mg tablet 100 mg PO DAILY DEPRESSION 08/20/18 12/05/23 History carvedilol 3.125 mg tablet 3.125 mg PO BID blood pressure 08/21/18 12/05/23 Rx clopidogrel 75 mg tablet 75 mg PO DAILY anti platelet 08/21/18 12/05/23 Rx cholecalciferol (vitamin D3) 25 75 mcg PO DAILY vitamin 12/30/22 12/05/23 H istory mcg (1,000 unit) capsule cyanocobalamin (vitamin B-12) 500 mcg PO DAILY vitamin 12/30/22 12/05/23 History 1,000 mcg capsule aspirin 81 mg tablet,delayed 81 mg PO DAILY heart meera 12/05/23 12/05/23 History release (Adult Aspirin Regimen) insulin glargine 100 unit/mL 18 unit (0.18 mL) subcut QHS bg 30 12/15/23 12/04/23 Rx subcutaneous solution days #0 mL pantoprazole 40 mg tablet,delayed 40 mg PO BID stomach 30 days #60 12/15/23 Unknown Rx release (Protonix) tabs albuterol sulfate 2.5 mg/3 mL 2.5 mg inhalation Q4H PRN PRN 01/16/24 Unknown History (0.083 %) solution for nebulization wheezing budesonide-formoterol HFA 160 2 inh inhalation BID copd 01/16/24 Unknown History mcg-4.5 mcg/actuation aerosol inhaler (Breyna) furosemide 20 mg tablet 20 mg PO DAILY chf 01/16/24 Unknown History guaifenesin 1,200 mg tablet, 1,200 mg PO BID cough 01/16/24 Unknown History extended release 12 hr nitroglycerin 0.4 mg sublingual 0.4 mg sublingual Q5M PRN chest 01/16/24 Unknown History tablet pain tamsulosin 0.4 mg capsule (Flomax) 0.4 mg PO DAILY bph 01/16/24 Unknown History tiotropium 2.5 mcg-olodaterol 2.5 2 inh inhalation DAILY copd 01/16/24 Unknown History mcg/actuation mist for inhalation (Stiolto Respimat) gabapentin 100 mg capsule 100 mg PO TIDCM #0 caps 01/22/24 Unknown Rx insulin lispro 100 unit/mL See Protocol subcut ACHS #0 mL 01/22/24 Unknown Rx subcutaneous pen (Humalog KwikPen (U-100) Insulin) Allergy/AdvReac Type Severity Reaction Status Date / Time No Known Allergies Allergy Verified 12/31/23 11:35 Surgical History Hx of CABG History of coronary artery stent placement Social History household members: spouse Smoking Status: Former smoker ROS ROS ED Review of Systems ROS Unobtainable: due to mental status EXAM Physical Exam Const Vital Signs: 01/24/24 15:26 01/24/24 15:26 01/24/24 15:30 Temperature 97.9 F Temperature Source Temporal Pulse Rate 96 96 Respiratory Rate 21 H 26 H Respiratory Effort Labored Mechanically Ventilated Respiratory Pattern Irregular Tachypnea Blood Pressure 100/59 L Blood Pressure Mean 72 Pulse Ox 100 100 Oxygen Delivery Method Bi-pap Oxygen Flow Rate (L/min) Fraction of Inspired Oxygen (FIO2) 30 EtCo2 (Normal 35-45 , high quality CPR 10-20 & ROSC>/=40mmHg 01/24/24 15:37 01/24/24 15:40 01/24/24 15:43 Temperature 97.9 F Temperature Source Temporal Pulse Rate 93 Respiratory Rate 17 Respiratory Effort Respiratory Pattern Blood Pressure 122/75 H Blood Pressure Mean 90 Pulse Ox 94 94 90 Oxygen Delivery Method Nasal Cannula Nasal Cannula Bi-pap Oxygen Flow Rate (L/min) 5 3 Fraction of Inspired Oxygen (FIO2) EtCo2 (Normal 35-45 , high quality CPR 10-20 & ROSC>/=40mmHg 01/24/24 15:56 01/24/24 16:26 01/24/24 16:37 Temperature 97.9 F Temperature Source Temporal Pulse Rate 87 91 91 Respiratory Rate 16 18 18 Respiratory Effort Respiratory Pattern Blood Pressure 107/62 117/67 112/77 Blood Pressure Mean 77 83 88 Pulse Ox 94 95 95 Oxygen Delivery Method Nasal Cannula Nasal Cannula Nasal Cannula Oxygen Flow Rate (L/min) 5 5 5 Fraction of Inspired Oxygen (FIO2) EtCo2 (Normal 35-45 , high quality CPR 10-20 & ROSC>/=40mmHg 01/24/24 16:39 01/24/24 16:57 01/24/24 17:00 Temperature 96.8 F L Temperature Source Temporal Pulse Rate 90 90 Respiratory Rate 18 20 H Respiratory Effort Respiratory Pattern Normal Blood Pressure 110/59 L Blood Pressure Mean 76 Pulse Ox 95 90 Oxygen Delivery Method Bi-pap Oxygen Flow Rate (L/min) Fraction of Inspired Oxygen (FIO2) 40 EtCo2 (Normal 35-45 , high quality CPR 10-20 & ROSC>/=40mmHg 28 01/24/24 18:00 01/24/24 19:00 01/24/24 19:14 Temperature 97.2 F L 97.4 F L Temperature Source Temporal Temporal Pulse Rate 86 86 85 Respiratory Rate 19 H 225 H 18 Respiratory Effort Respiratory Pattern Blood Pressure 98/79 120/68 Blood Pressure Mean 85 85 Pulse Ox 92 94 Oxygen Delivery Method Bi-pap Bi-pap Oxygen Flow Rate (L/min) Fraction of Inspired Oxygen (FIO2) EtCo2 (Normal 35-45 , high quality CPR 10-20 & ROSC>/=40mmHg 01/24/24 19:15 01/24/24 19:30 01/24/24 19:45 Temperature Temperature Source Pulse Rate 87 93 Respiratory Rate 18 24 H Respiratory Effort Respiratory Pattern Blood Pressure 125/61 H 120/90 H Blood Pressure Mean 79 99 Pulse Ox 81 Oxygen Delivery Method Nasal Cannula Oxygen Flow Rate (L/min) 6 Fraction of Inspired Oxygen (FIO2) EtCo2 (Normal 35-45 , high quality CPR 10-20 & ROSC>/=40mmHg 01/24/24 20:04 01/24/24 20:05 01/24/24 20:09 Temperature 97.1 F L Temperature Source Temporal Pulse Rate 89 90 89 Respiratory Rate 22 H 30 H 22 H Respiratory Effort Respiratory Pattern Tachypnea Blood Pressure 103/79 103/79 Blood Pressure Mean 87 87 Pulse Ox 92 91 92 Oxygen Delivery Method Bi-pap Oxygen Flow Rate (L/min) Fraction of Inspired Oxygen (FIO2) 40 40 EtCo2 (Normal 35-45 , high quality CPR 10-20 & ROSC>/=40mmHg Positive well nourished and well developed General Appearance ED: well developed HEENT Reports normocephalic, head/scalp atraumatic and moist mucous membranes Eyes PERRL and EOMs intact bilaterally Neck no lymphadenopathy, supple and no JVD Resp normal respiratory effort and clear to auscultation bilaterally Cardio regular rate, regular rhythm and no murmurs GI normal to inspection, nondistended, normoactive bowel sounds and non-tender Palpation: soft Back/Spine no CVA tenderness and normal ROM Extremity normal to inspection General Extremety ED: Negative for edema General Extremity: Negative for edema Neuro Neuro Narrative: Unresponsive to sternal rub Psych Psych Narrative: Unable to assess Mood & Affect: tearful Skin Skin Narrative: There is a skin tear possible former blister with the skin removed right great toe. Tissue appears moist. General skin exam shows the patient's skin to be cool and clammy MDM MDM MDM Narrative Medical decision making narrative: Differential diagnosis includes but not limited to hypoglycemia metabolic derangements hypercapnia stroke pneumonia. Patient was brought to resuscitation room. He was placed on the monitor continued BiPAP. It appeared that the IV had infiltrated. We started a new IV on the right side and gave 1 amp of D50. Patient became more responsive. He was transitioned to nasal cannula. Patient currently denying any pain. He does not know what happened. End-tidal CO2 is 20-25 on 5 L nasal cannula. Patient's white count nonspecifically elevated 12.9 hemoglobin 14.3 BMP with a creatinine 1.69 BUN of 51 normal LFTs alkaline phosphatase 365 lipase 16 urinalysis does not show overt infection. Patient received ampule of D50. His blood sugars have continued to trend down. We tried to encourage fluids such as orange juice but is unsuccessful in taking enough intake to keep his blood sugars up and was eventually placed on D5 normal saline. Every time he falls asleep we placed him on BiPAP to prevent it from becoming hypercarbic. Plan will be admission to hospital. History & Record Review Discussion w/independent historian: EMS personnel and Patient Lab Data Attestation: I reviewed the patient's lab results. Labs: Laboratory Results - last 24 hr 01/24/24 01/24/24 01/24/24 15:31 15:32 16:26 WBC 12.9 H RBC 4.88 Hgb 14.3 Hct 44.9 MCV 92.0 MCH 29.3 MCHC 31.8 L RDW Std Deviation 57.6 H RDW Coeff of Audi 17.0 H Plt Count 156 MPV 11.1 Immature Gran % (Auto) 1.200 H Neut % (Auto) 88.9 H Lymph % (Auto) 5.4 L [place] % (Auto) 4.3 Eos % (Auto) 0.0 Baso % (Auto) 0.2 Absolute Neuts (auto) 11.4 H Absolute Lymphs (auto) 0.70 L Nucleated RBC % 0 Sodium 140 Potassium 4.1 Chloride 102 Carbon Dioxide 30.0 Anion Gap 8 BUN 51 H Creatinine 1.69 H Est GFR (MDRD) Af Amer 51 L Est GFR (MDRD) Non-Af 42 L BUN/Creatinine Ratio 30.2 H Glucose 19 L* Calcium 9.4 Total Bilirubin 0.50 Direct Bilirubin 0.23 AST 95 H ALT 66 H Alkaline Phosphatase 365 H Total Protein 6.4 Albumin 2.3 L Globulin 4.1 Lipase 16 Urine Color Yellow Urine Clarity Clear Urine pH 5.0 Ur Specific [place] 1.015 Urine Protein 15 H Urine Glucose (UA) Normal Urine Ketones Negative Urine Occult Blood Negative Urine Nitrite Negative Urine Bilirubin Negative Urine Urobilinogen Normal Ur Leukocyte Esterase 25 H Urine RBC 0 SEEN Urine WBC 0-5 SEEN Ur Squamous Epith Cells 0-5 SEEN Urine Bacteria 1+ Hyaline Casts 0-5 SEEN Urine Mucus 0 SEEN POC Glucose 273 H 01/24/24 01/24/24 01/24/24 16:32 17:11 18:32 WBC RBC Hgb Hct MCV MCH MCHC RDW Std Deviation RDW Coeff of Audi Plt Count MPV Immature Gran % (Auto) Neut % (Auto) Lymph % (Auto) [place] % (Auto) Eos % (Auto) Baso % (Auto) Absolute Neuts (auto) Absolute Lymphs (auto) Nucleated RBC % Sodium Potassium Chloride Carbon Dioxide Anion Gap BUN Creatinine Est GFR (MDRD) Af Amer Est GFR (MDRD) Non-Af BUN/Creatinine Ratio Glucose Calcium Total Bilirubin Direct Bilirubin AST ALT Alkaline Phosphatase Total Protein Albumin Globulin Lipase Urine Color Urine Clarity Urine pH Ur Specific [place] Urine Protein Urine Glucose (UA) Urine Ketones Urine Occult Blood Urine Nitrite Urine Bilirubin Urine Urobilinogen Ur Leukocyte Esterase Urine RBC Urine WBC Ur Squamous Epith Cells Urine Bacteria Hyaline Casts Urine Mucus POC Glucose 107 H 120 H 93 01/24/24 19:29 WBC RBC Hgb Hct MCV MCH MCHC RDW Std Deviation RDW Coeff of Audi Plt Count MPV Immature Gran % (Auto) Neut % (Auto) Lymph % (Auto) [place] % (Auto) Eos % (Auto) Baso % (Auto) Absolute Neuts (auto) Absolute Lymphs (auto) Nucleated RBC % Sodium Potassium Chloride Carbon Dioxide Anion Gap BUN Creatinine Est GFR (MDRD) Af Amer Est GFR (MDRD) Non-Af BUN/Creatinine Ratio Glucose Calcium Total Bilirubin Direct Bilirubin AST ALT Alkaline Phosphatase Total Protein Albumin Globulin Lipase Urine Color Urine Clarity Urine pH Ur Specific [place] Urine Protein Urine Glucose (UA) Urine Ketones Urine Occult Blood Urine Nitrite Urine Bilirubin Urine Urobilinogen Ur Leukocyte Esterase Urine RBC Urine WBC Ur Squamous Epith Cells Urine Bacteria Hyaline Casts Urine Mucus POC Glucose 62 L Radiography Diagnostic Testing: Clinical Impression(s) from Imaging Studies Chest X-Ray 01/24/24 16:07 IMPRESSION: Mild interval improvement in aeration bilaterally since prior study.. Electronically Signed: Say Ellsworth MD at 16:50 EDT , EKG Initial EKG: Attestation: I personally reviewed and interpreted this EKG as follows: Comments: Sinus rhythm ventricular rate of 92 bpm left bundle branch block noted. Prior EKG tracings: available for review Prior: Unchanged Management Discussion w/another healthcare provider: Hospitalist (Dr. Amador) Discharge Plan Dx/Rx/DC Orders Clinical Impression: Episode of unresponsiveness, Diabetic hypoglycemia Disposition Disposition: Acute Care Hospital [facility] Discharge Date/Time: 01/24/24 20:36
[2024-01-24 15:51] LABS: Bedside Glucose 273 mg/dL (74-106)
[2024-01-24 16:04] LABS: Absolute Neutrophil Count 11.4 X10^3/uL (2.0-7.7); Basophil# 0.03 X10^3/uL; Basophil% 0.2 % (0-1); Hematocrit 44.9 % (40-54); Hemoglobin 14.3 g/dL (13.0-16.5); Lymphocyte % 5.4 % (19-41); Mean Corp Hgb Conc 31.8 g/dL (32-36); Mean Corpuscular Hgb 29.3 pg (27.0-32.0); Mean Platelet Vol. 11.1 fl (6.2-12.0); Monocyte# 0.55 X10^3/uL; Monocyte% 4.3 % (0-10); NRBC Flagged by Analyzer 0 % (0-5); Neutrophil # 11.43 X10^3/uL (2.7-7.7); Neutrophil % 88.9 % (47-70); Platelet Count 156 K/mm3 (150-450); RBC Distribution Width SD 57.6 fl (35.1-43.9); Red Blood Count 4.88 M/mm3 (4.6-6.2); White Blood Count 12.9 K/mm3 (4.4-11.0)
--- NOTE | 2024-01-24 16:07 | RAD_ITS ---
STUDY: X-RAY CHEST REASON FOR EXAM: Male, 78 years old. copd TECHNIQUE: AP portable COMPARISON: January 21, 2024 FINDINGS: There is persistent bilateral. Interstitial infiltrates or pulmonary edema more pronounced in the left lung with associated small pleural effusions . There is slightly improved aeration bilaterally since prior study Postop change status post median sternotomy and CABG Normal size heart. Normal mediastinum and loco. Normal visualized pulmonary arteries. Normal visualized aortic arch and descending thoracic aorta. Dorsal spine and shoulders demonstrate degenerative changes. Normal visualized ribs, and clavicles There is no demonstrated abnormality of the visualized soft tissue structures of the upper abdomen. RAD/Chest 1 View (Portable) IMPRESSION: Mild interval improvement in aeration bilaterally since prior study.. Electronically Signed: Say Ellsworth MD at 16:50 EDT ,
[2024-01-24 16:19] LABS: AST(SGOT) 95 U/L (15-37); Alanine Aminotransfer ALT/SGPT 66 U/L (16-61); Albumin, Serum 2.3 g/dL (3.2-5.0); Alkaline Phosphatase 365 U/L (45-117); Anion Gap 8 (5-15); BUN 51 mg/dL (7-18); BUN/Creat Ratio 30.2 RATIO (10-20); Bilirubin, Direct 0.23 mg/dL (0.00-0.30); Calcium,Total 9.4 mg/dL (8.5-10.1); Chloride 102 mmol/L (98-107); Creatinine, Serum 1.69 mg/dL (0.70-1.30); EST Glomerular Filtration Rate 42 mL/min (>60); Est Glom Filt Rate - Afr Amer 51 mL/min (>60); Globulin 4.1 g/dL (2.2-4.2); Lipase 16 U/L (13-75); Potassium 4.1 mmol/L (3.5-5.1); Protein, Total 6.4 g/dL (6.4-8.2); Sodium Level 140 mmol/L (136-145)
[2024-01-24 16:25] LABS: Glucose 19 mg/dL (74-106)
[2024-01-24 16:32] LABS: Mucous, Urine 0 SEEN /hpf (<or=2+); Red Blood Cells-Urine 0 SEEN /hpf (0-5)
[2024-01-24 16:40] LABS: Color, Urine Yellow (Yellow); Glucose, Dipstick Normal (Normal); Ketone-Dipstick Negative (Negative); Leukocyte Esterase-Dipstick 25 /ul (Negative); Nitrite-Dipstick Negative (Negative); Occult Blood-Urine Negative /ul (Negative); Protein-Dipstick 15 mg/dl (Negative); Specific Gravity, Urine 1.015 (1.002-1.030); Urine Bilirubin Dipstick Negative (Negative); Urine Clarity Clear (Clear); Urine Urobilinogen Normal (Normal)
[2024-01-24 16:50] LABS: Bedside Glucose 107 mg/dL (74-106)
[2024-01-24 16:52] LABS: Bacteria 1+ /hpf (None Seen); Hyaline Cast 0-5 SEEN /lpf (0-5); Squamous Epithelial Cells - UA 0-5 SEEN /hpf (0-5); White Blood Cells 0-5 SEEN /hpf (0-5)
[2024-01-24 17:28] LABS: Bedside Glucose 120 mg/dL (74-106)
[2024-01-24 18:50] LABS: Bedside Glucose 93 mg/dL (74-106)
--- NOTE | 2024-01-24 19:38 | ED.RN ---
Per Dr. Potts, check BGT and give him oral fluids and food. Patient placed on NC 5L. BGT 62 and given orange juice.
[2024-01-24 19:49] LABS: Bedside Glucose 62 mg/dL (74-106)
--- NOTE | 2024-01-24 19:52 | PCM.HP.STD ---
HPI - General General Date of Admission: 01/24/24 Date of Service: 01/24/24 Chief Complaint: Decreased oral intake, low BS at SNF. 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 (4-6L NC), JAYNE on BIPAP q HS, Combined HF, HTN, HLD, Persistent left lung opacity w/ recent admission recommended follow-up with Pulmonary to consider EBUS with Bx but give poor function status decision to defer per family/patient given his inability to tolerate chemotherapy, Anxiety and Depression, GERD, CAD s/p PCI, recent discharge 01/22/24 following evaluation and treatment of acute hypoxic and hypercarbic respiratory failure felt secondary to COPD exacerbation which improved with BiPAP complicated by underlying persistent left lung opacity felt noninfectious in etiology with acute on chronic debility and adult failure to thrive who now represents to the [facility] ED on 01/24/24 from skilled facility with unfortunately encephalopathy with recent poor oral intake and serial hypoglycemia prompting skilled facility transition to the ED for evaluation. Workup in the ED included T97.1, heart rate 89, BP 103/79, respiratory rate 22, initially presenting with 81% on 6 L nasal cannula quickly improving to 96% on 40% FiO2 on BiPAP, CBC with WBC 12.9, hemoglobin 14.3, platelet 156 with left shift and lymphopenia, CMP with BUN/creatinine 51/1.69, GFR 42, glucose 19, hepatic profile with AST/ALT 95/66, alk phos 365, lipase 16, urinalysis not marked appearing with protein 15, negative nitrite, leukocyte Estrace 25 with no urine RBCs or WBCs with 1+ bacteria, chest x-ray with actual mild interval improvement in aeration bilaterally since previous study, EKG with sinus rhythm with left bundle branch block with no acute evidence of ischemia. In the ED patient administered dextrose amps and eventually placed on a dextrose drip. [facility] Medical History (Updated 01/25/24 @ 02:[address] Corina Amador MD) CKD (chronic kidney disease), stage III CAD (coronary artery disease) Heart failure with reduced ejection fraction HTN (hypertension) Dysphagia Hearing loss, left Hearing loss, right Anxiety Diabetes Chronic pain Kidney stones Former smoker Sleep apnea COPD (chronic obstructive pulmonary disease) Myocardial infarct Hypertension DVT (deep venous thrombosis) Home Medications ?Medication ?Instructions ?Recorded ?Last Taken ?Type glipizide 5 mg tablet 5 mg PO .BEFORE MEALS DM 08/20/18 12/05/23 History sertraline 50 mg tablet 100 mg PO DAILY DEPRESSION 08/20/18 12/05/23 History carvedilol 3.125 mg tablet 3.125 mg PO BID blood pressure 08/21/18 12/05/23 Rx clopidogrel 75 mg tablet 75 mg PO DAILY anti platelet 08/21/18 12/05/23 Rx cholecalciferol (vitamin D3) 25 75 mcg PO DAILY vitamin 12/30/22 12/05/23 History mcg (1,000 unit) capsule cyanocobalamin (vitamin B-12) 500 mcg PO DAILY vitamin 12/30/22 12/05/23 History 1,000 mcg capsule aspirin 81 mg tablet,delayed 81 mg PO DAILY heart meera 12/05/23 12/05/23 History release (Adult Aspirin Regimen) insulin glargine 100 unit/mL 18 unit (0.18 mL) subcut QHS bg 30 12/15/23 12/04/23 Rx subcutaneous solution days #0 mL pantoprazole 40 mg tablet,delayed 40 mg PO BID stomach 30 days #60 12/15/23 Unknown Rx release (Protonix) tabs albuterol sulfate 2.5 mg/3 mL 2.5 mg inhalation Q4H PRN PRN 01/16/24 Unknown History (0.083 %) solution for nebulization wheezing budesonide-formoterol HFA 160 2 inh inhalation BID copd 01/16/24 Unknown History mcg-4.5 mcg/actuation aerosol inhaler (Breyna) furosemide 20 mg tablet 20 mg PO DAILY chf 01/16/24 Unknown History guaifenesin 1,200 mg tablet, 1,200 mg PO BID cough 01/16/24 Unknown History extended release 12 hr nitroglycerin 0.4 mg sublingual 0.4 mg sublingual Q5M PRN chest 01/16/24 Unknown History tablet pain tamsulosin 0.4 mg capsule (Flomax) 0.4 mg PO DAILY bph 01/16/24 Unknown History tiotropium 2.5 mcg-olodaterol 2.5 2 inh inhalation DAILY copd 01/16/24 Unknown History mcg/actuation mist for inhalation (Stiolto Respimat) gabapentin 100 mg capsule 100 mg PO TIDCM #0 caps 01/22/24 Unknown Rx insulin lispro 100 unit/mL See Protocol subcut ACHS #0 mL 01/22/24 Unknown Rx subcutaneous pen (Humalog KwikPen (U-100) Insulin) Allergy/AdvReac Type Severity Reaction Status Date / Time No Known Allergies Allergy Verified 12/31/23 11:35 Family History Mother Heart disease Hypertension Father Heart disease Hypertension Surgical History Hx of CABG History of coronary artery stent placement Social History household members: spouse Smoking Status: Former smoker alcohol intake: never substance use type: does not use ROS ROS Narrative Admission Review of Systems: CONSTITUTIONAL: No weight loss, fever, chills, + weakness or fatigue. HEENT: Eyes: No visual loss, blurred vision, double vision or yellow sclerae. Ears, Nose, Throat: No hearing loss, sneezing, congestion, runny nose or sore throat. SKIN: No rash or itching, lesions, wounds. CARDIOVASCULAR: + Unresponsive with noted hypoglycemia at skilled facility. No chest pain, chest pressure or chest discomfort, palpitations, edema, orthopnea, syncopal events. RESPIRATORY: No shortness of breath, cough or sputum, wheezing, hemoptysis. GASTROINTESTINAL: + Anorexia. No nausea, vomiting or diarrhea, abdominal pain, melena, BRBPR. GENITOURINARY: + Chronic urinary frequency. No dysuria, urgency or retention. NEUROLOGICAL: + Unresponsive event with hypoglycemia at skilled facility. No headache, dizziness, syncope, paralysis, ataxia, numbness or tingling in the extremities, focal weakness, change in bowel or bladder control, seizure. MUSCULOSKELETAL: + muscle, back pain, joint pain or stiffness. HEMATOLOGIC: + Chronic anemia, easy bleeding/bruising. LYMPHATICS: No enlarged nodes. No history of splenectomy. PSYCHIATRIC: + History of anxiety and depression. ENDOCRINOLOGIC: No reports of sweating, cold or heat intolerance. No polyuria or polydipsia. ALLERGIES: No history of asthma, hives, eczema or rhinitis. Vital Signs Vital Signs Vital Signs: 01/24/24 15:26 01/24/24 15:26 01/24/24 15:30 Temperature 97.9 F Temperature Source Temporal Pulse Rate 96 96 Respiratory Rate 21 H 26 H Respiratory Effort Labored Mechanically Ventilated Respiratory Pattern Irregular Tachypnea Blood Pressure 100/59 L Blood Pressure Mean 72 Pulse Ox 100 100 Oxygen Delivery Method Bi-pap Oxygen Flow Rate (L/min) Fraction of Inspired Oxygen (FIO2) 30 EtCo2 (Normal 35-45 , high quality CPR 10-20 & ROSC>/=40mmHg 01/24/24 15:37 01/24/24 15:40 01/24/24 15:43 Temperature 97.9 F Temperature Source Temporal Pulse Rate 93 Respiratory Rate 17 Respiratory Effort Respiratory Pattern Blood Pressure 122/75 H Blood Pressure Mean 90 Pulse Ox 94 94 90 Oxygen Delivery Method Nasal Cannula Nasal Cannula Bi-pap Oxygen Flow Rate (L/min) 5 3 Fraction of Inspired Oxygen (FIO2) EtCo2 (Normal 35-45 , high quality CPR 10-20 & ROSC>/=40mmHg 01/24/24 15:56 01/24/24 16:26 01/24/24 16:37 Temperature 97.9 F Temperature Source Temporal Pulse Rate 87 91 91 Respiratory Rate 16 18 18 Respiratory Effort Respiratory Pattern Blood Pressure 107/62 117/67 112/77 Blood Pressure Mean 77 83 88 Pulse Ox 94 95 95 Oxygen Delivery Method Nasal Cannula Nasal Cannula Nasal Cannula Oxygen Flow Rate (L/min) 5 5 5 Fraction of Inspired Oxygen (FIO2) EtCo2 (Normal 35-45 , high quality CPR 10-20 & ROSC>/=40mmHg 01/24/24 16:39 01/24/24 16:57 01/24/24 17:00 Temperature 96.8 F L Temperature Source Temporal Pulse Rate 90 90 Respiratory Rate 18 20 H Respiratory Effort Respiratory Pattern Normal Blood Pressure 110/59 L Blood Pressure Mean 76 Pulse Ox 95 90 Oxygen Delivery Method Bi-pap Oxygen Flow Rate (L/min) Fraction of Inspired Oxygen (FIO2) 40 EtCo2 (Normal 35-45 , high quality CPR 10-20 & ROSC>/=40mmHg 28 01/24/24 18:00 01/24/24 19:00 01/24/24 19:14 Temperature 97.2 F L 97.4 F L Temperature Source Temporal Temporal Pulse Rate 86 86 85 Respiratory Rate 19 H 225 H 18 Respiratory Effort Respiratory Pattern Blood Pressure 98/79 120/68 Blood Pressure Mean 85 85 Pulse Ox 92 94 Oxygen Delivery Method Bi-pap Bi-pap Oxygen Flow Rate (L/min) Fraction of Inspired Oxygen (FIO2) EtCo2 (Normal 35-45 , high quality CPR 10-20 & ROSC>/=40mmHg 01/24/24 19:15 01/24/24 19:30 01/24/24 19:45 Temperature Temperature Source Pulse Rate 87 93 Respiratory Rate 18 24 H Respiratory Effort Respiratory Pattern Blood Pressure 125/61 H 120/90 H Blood Pressure Mean 79 99 Pulse Ox 81 Oxygen Delivery Method Nasal Cannula Oxygen Flow Rate (L/min) 6 Fraction of Inspired Oxygen (FIO2) EtCo2 (Normal 35-45 , high quality CPR 10-20 & ROSC>/=40mmHg Physical Exam Narrative Physical Examination: General: Awake, alert, oriented x [address], month, year, president, significantly improved since initial ED arrival as had been encephalopathic and unresponsive, currently cooperative, seated upright in the ED bed, BiPAP still in place. Skin: Normal color, normal turgor, no icterus, no cyanosis Except very staged ecchymoses, right toe with abrasion with no active bleeding, venous stasis skin changes bilaterally distally. HEENT: AT/NC, EOMI, PERRLA, dry MM, BiPAP in place, difficult to discern carotid bruit given referred sounds from BiPAP, no obvious marked JVD noted. Lungs: Diminished, greater bases, no evidence of any distress, BiPAP in place, no rales, ronchi or wheezing. Heart: Regular rate and rhythm; no gallop, rub audible. Abdomen: Soft, NTTP, ND, hyperactive BS, no appreciated HSM. Extremities: No cyanosis, no clubbing, see skin, pedal to mid angela not markedly pitting chronic edema. Neurological: Patient awake, alert, oriented as noted, cognitive function significantly improved since initial ED arrival, nearing baseline intact; pupils equally reactive to light and accommodation, cranial nerves grossly normal, moving all 4 extremities, no focal deficits, strength moderately to severely globally decreased. Psychiatric: Affect appears fatigued otherwise improved, normal, no acute evidence of depressive or anxiety feelings. Results Lab / Micro Data 01/24/24 15:31 01/24/24 15:31 Labs: Laboratory Results - last 24 hr 01/24/24 15:31: WBC 12.9 H, RBC 4.88, Hgb 14.3, Hct 44.9, MCV 92.0, MCH 29.3, MCHC 31.8 L, RDW Std Deviation 57.6 H, RDW Coeff of Audi 17.0 H, Plt Count 156, MPV 11.1, Immature Gran % (Auto) 1.200 H, Neut % (Auto) 88.9 H, Lymph % (Auto) 5.4 L, [place] % (Auto) 4.3, Eos % (Auto) 0.0, Baso % (Auto) 0.2, Absolute Neuts (auto) 11.4 H, Absolute Lymphs (auto) 0.70 L, Nucleated RBC % 0, Sodium 140, Potassium 4.1, Chloride 102, Carbon Dioxide 30.0, Anion Gap 8, BUN 51 H, Creatinine 1.69 H, Est GFR (MDRD) Af Amer 51 L, Est GFR (MDRD) Non-Af 42 L, BUN/Creatinine Ratio 30.2 H, Glucose 19 L*, Calcium 9.4, Total Bilirubin 0.50, Direct Bilirubin 0.23, AST 95 H, ALT 66 H, Alkaline Phosphatase 365 H, Total Protein 6.4, Albumin 2.3 L, Globulin 4.1, Lipase 16 01/24/24 15:32: POC Glucose 273 H 01/24/24 16:26: Urine Color Yellow, Urine Clarity Clear, Urine pH 5.0, Ur Specific [place] 1.015, Urine Protein 15 H, Urine Glucose (UA) Normal, Urine Ketones Negative, Urine Occult Blood Negative, Urine Nitrite Negative, Urine Bilirubin Negative, Urine Urobilinogen Normal, Ur Leukocyte Esterase 25 H, Urine RBC 0 SEEN, Urine WBC 0-5 SEEN, Ur Squamous Epith Cells 0-5 SEEN, Urine Bacteria 1+, Hyaline Casts 0-5 SEEN, Urine Mucus 0 SEEN 01/24/24 16:32: POC Glucose 107 H 01/24/24 17:11: POC Glucose 120 H 01/24/24 18:32: POC Glucose 93 01/24/24 19:29: POC Glucose 62 L Imaging Radiology Impression Chest X-Ray 01/24/24 16:07 IMPRESSION: Mild interval improvement in aeration bilaterally since prior study.. 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 (4-6L NC), JAYNE on BIPAP q HS, Combined HF, HTN, HLD, Persistent left lung opacity w/ recent admission recommended follow-up with Pulmonary to consider EBUS with Bx but give poor function status decision to defer per family/patient given his inability to tolerate chemotherapy, Anxiety and Depression, GERD, CAD s/p PCI, recent discharge 01/22/24 following evaluation and treatment of acute hypoxic and hypercarbic respiratory failure felt secondary to COPD exacerbation which improved with BiPAP complicated by underlying persistent left lung opacity felt noninfectious in etiology with acute on chronic debility and adult failure to thrive who now represents to the [facility] ED on 01/24/24 from skilled facility with unfortunately encephalopathy with recent poor oral intake and serial hypoglycemia prompting skilled facility transition to the ED for evaluation. #1. Acute encephalopathy, multifactorial likely secondary to recurrent hypercarbia secondary to lack of BiPAP usage aggressively in addition to persistent hypoglycemia with underlying Diabetes mellitus type II: Given usage in the ED of dextrose IV supplementation with serial blood sugar check assessments necessary will admit to the ICU, will request bay stocker involvement, will continue D5 NS supplementation but decreased dose given underlying EF, will closely continue to monitor blood sugars at least hourly and as starts to clinically improve we will transition out blood sugar checks but also attempt to decrease IV supplementation, holding all insulin and oral diabetic medication, broaden diet to regular diet at this time, nutrition consulted for education as patient's not been eating which is greatly contributing. #2. Recent acute COPD exacerbation complicated by acute on chronic hypercarbic and hypoxic respiratory failure (4-6L chronically): As noted we will continue BiPAP nightly and with naps, will continue supplemental oxygen with wean as tolerated to 4 to 6 L supplementation, patient had been on IV steroids during recent admission with recommended steroid taper at discharge per pulmonary medicine thus given current presentation to be cautious will transition back to IV Solu-Medrol, maintain on ATC budesonide, PRN albuterol, encourage HOB and aggressive IS. #3. Recurrent mild encephalopathy secondary to recurrent hypercarbia with chronic hypoxic and hypercapnic respiratory failure with strong need for persistent BiPAP usage at rest and nightly: Patient upon presentation with mild encephalopathy, BiPAP immediately started with no ABG obtained but patient immediately clinically improved which has been an issue and was strongly reported and documented in most recent admission, will continue BiPAP nightly and with naps. #4. Persistent lung opacity: Ongoing left lung opacity of unclear etiology noted during recent admission, not appropriate candidate for chemotherapy as previously discussed EBUS for possible biopsy but given inability to even tolerate treatments decision for patient and family to just continue to monitor with plan to repeat imaging 6 weeks following discharge per most recent discharge note. #5. Chronic Kidney Disease Stage III, unclear subtype per GFR: Admission BUN/Cr 51/1.69, GFR 42, baseline renal function primarily 1.4-1.9, repeat BMP in AM. #6. Chronic debility, adult failure to thrive: Patient with frequent serial admissions, transitions from skilled facility for evaluation, continue PT/OT/case management consultation with plan for transition back to skilled once clinically appropriate. #7. Chronic transaminitis: Unclear etiology, potentially compounded by transient hypoxemia and hypercarbia as noted, admission CMP with T. bili 0.50, D bili 0.23, AST/LT 95/66, alk phos 365, continue to trend. #8. Chronic combined HF, appears compensated: 12/31/2023 echocardiogram with mildly dilated LV, severe generalized LV systolic dysfunction with EF 20 to 25%, stage I diastolic dysfunction, moderately severe global RV systolic dysfunction. Will continue aspirin, Plavix, Coreg, statin, lisinopril held during recent admission of note. Will very judiciously hydrate given underlying history, EF. #9. CAD: Status post PCI, continue aspirin, Plavix, Coreg, statin, as noted above lisinopril held during recent admission. #10. Hypertension: During recent admission patient with mild hypotension with lisinopril held, will attempt to continue judicious Coreg and Lasix home medication, as needed IV hydralazine. #11. Hyperlipidemia: We will continue patient on statin therapy. #12. Anxiety and depression: We will continue patient home sertraline regimen. #13. BPH: We will continue patient on Flomax regimen. #14. GERD: We will continue patient on PPI. #15. DVT prophylaxis: Lovenox. #16. CODE STATUS: Patient listed as full code for skilled facility. Charges/Coding Visit Charges Inpatient E&M: 65630 Init Hosp L3
[2024-01-24] MEDS: Dextrose 5%/0.9% NaCl 1,000 ML 125 ML IV (20:02)
[2024-01-24] MEDS: Dextrose 50%-Water 25 GM/50 ML DISP.SYRIN IV (20:02)
--- NOTE | 2024-01-24 20:07 | ED.RN ---
PER DR. NIETO SLOW DEXTROSE DOWN TO 75 ML/HR DUE TO EF 20%
[2024-01-24] MEDS: Dextrose 5%/0.9% NaCl 1,000 ML 75 ML IV (21:02)
[2024-01-24 21:09] LABS: Bedside Glucose 91 mg/dL (74-106)
[2024-01-24] MEDS: Menthol/Lanolin/Calamine/Znox 113 GM Tube 1 APPLIC TOPICAL (22:00)
[2024-01-24] MEDS: guaiFENesin 1,200 MG Tablet 1200 MG PO (22:01)
[2024-01-24] MEDS: Pantoprazole Sodium 40 MG Tablet PO (22:01)
[2024-01-24] MEDS: Carvedilol 3.125 MG TABLET PO (22:02)
[2024-01-24] MEDS: Acetaminophen 325 MG Tablet 650 MG PO (22:31)
[2024-01-24 22:46] LABS: Bedside Glucose 77 mg/dL (74-106)
[2024-01-24 22:48] LABS: Magnesium 1.9 mg/dL (1.6-2.6); Phosphorus 4.2 mg/dL (2.5-4.9)
[2024-01-24 22:57] LABS: Procalcitonin 0.24 ng/mL (0.00-0.09)
[2024-01-24] MEDS: Dextrose 10%-Water 250 ML 125 ML IV (23:20)
[2024-01-24 23:45] LABS: Bedside Glucose 55 mg/dL (74-106)
[2024-01-24 23:58] LABS: Bedside Glucose 118 mg/dL (74-106)
[2024-01-25] VITALS (33 sets, daily range): BP systolic 98–125; BP diastolic 30–96; PULSE 71–90; RESP 12–31; TEMP 35.9–36.3; O2SAT 90–100; BMI 21.2
--- NOTE | 2024-01-25 | FLU_PTH ---
PATIENT: JONAH ALEXANDRA LOC: ICU U#:[id number] AGE/SX: 78/M ROOM: ICU02 RE01/24/[address]: Dr. Bro Redd DO : 1945 BED: 1 DIS: 01/30/2024 SPEC #: [id number] RECD: 01/25/24 10:54 STATUS: SOUT REQ #: [id number] NICHOLAS: 01/25/24 00:[address]: Gera Aden DEPT: CYTOLOGY RECD BY: Judah Hess ENTERED: 01/26/24 10:54 SP TYPE: Fluid OTHR DR: MD Dr. Juan Alba MD Dr. Autumn L White, MD Dr. Derek Brown, DO Dr. David P Myers, MD Dr. Edward Matheis, MD Dr. Gautam Baskaran, MD Dr. Yordanos Habtegebriel, MD Dr. Hemant Dand, MD Dr. Jose Ochoa, MD Dr. Kimber Foust, MD Dr. Lamia Aljundi, MD Dr. Mark Elderbrock, MD Dr. Pritam Ghosh, MD Dr. Pavan Irukulla, MD Dr. Saad Farooqi, MD Dr. Sujoy Gill, MD Dr. Vikram Anand, MD Dr. William Haden, MD Tissues: THORACIC FLUID Procedures: Special Stain Group II Surgery Specimen Level IV Cytospin Fluid HEADER OPERATION: Thoracentesis fluid PRE-OP DIAGNOSIS: Left pleural effusion TISSUE SUBMITTED: Thoracentesis fluid for cytology DIAGNOSIS CYTOLOGY Thoracentesis fluid for cytology (cytospins and cellblock): Atypical epithelial cells present See comment. 01/29/2024 COMMENT Immunohistochemistry ([id number]) is non-contributory. A malignancy cannot be ruled out. Clinical correlation is suggested. Case has been reviewed in consultation with Dr. Feng who concurs with the above diagnosis. IDC:[email or web address] CYTOLOGY STUDY Slides are reviewed. CYTOLOGY GROSS Received is 80 ml of red-cloudy fluid labeled with the patient's name and and designated per the requisition as Thoracentesis fluid. Submitted for cytology preparation including cell block. Mr 01/26/2024 TC:0 CPT: 59216,93818
--- NOTE | 2024-01-25 | IMM_PTH ---
PATIENT: JONAH ALEXANDRA LOC: ICU U#:[id number] AGE/SX: 78/M ROOM: ICU02 RE01/24/[address]: Dr. Bro Redd DO : 1945 BED: 1 DIS: 01/30/2024 SPEC #: [id number] RECD: 01/29/24 10:44 STATUS: SOUT REQ #: [id number] NICHOLAS: 01/25/24 00:[address]: Bro Redd DEPT: IMMUNOHISTOCHEMISTRY RECD BY: Prince Downing ENTERED: 01/29/24 10:45 SP TYPE: IMMUNO OTHR DR: MD Dr. Juan Alba MD Dr. Alexander Mosteller, DO Dr. Autumn L White, MD Dr. Derek Brown, DO Dr. David P Myers, MD Dr. Edward Matheis, MD Dr. Gautam Baskaran, MD Dr. Yordanos Habtegebriel, MD Dr. Hemant Dand, MD Dr. Jose Ochoa, MD Dr. Kimber Foust, MD Dr. Lamia Aljundi, MD Dr. Mark Elderbrock, MD Dr. Pritam Ghosh, MD Dr. Pavan Irukulla, MD Dr. Saad Farooqi, MD Dr. Sujoy Gill, MD Dr. Vikram Anand, MD Dr. William Haden, MD Tissues: THORACIC FLUID Procedures: Synapto (add) NAPSIN A (add) Jose J Ret (add) CD138 (add) CD20 (add) CD3 (add) CD45 (add) CD5 (add) CD56 (add) CD79A (add) CEA (add) CHROMO (add) CK20 (add) CK5-6 (add) CK7 (add) CK8 (add) KI-67 (add) MPO (add) P53 (add) TTF1 (add) Vimentin (add) Pankeratin (initial) P40 (add) CDX2 (add) MOC-31 (add) NSE (add) S-100 (add) PHYSICIAN & INSTITUTION [place] [id number] SPECIMEN INFORMATION: Tissue Source: Thoracentesis fluid Clinical Info: Left pleural effusion Specimen Number: [id number] CPT code: 32261,90928u21 METHODOLOGY: Deparaffinized sections of prefer/formalin-fixed tissue or PAP/DQ stained slides are incubated with monoclonal/polyclonal antibodies/oligonucleotide probes. Localization is made via biotin free immunoperoxidase method. Appropriate controls are performed and reacted as expected. Results on target cell population are indicated in the following table: RESULTS: ANTIBODY / CLONE RESULT AE1-3 (AE1/AE3/PCK26) negative CK7 (OV-TL12/30) negative CK8 (32bvquQ73) negative CK20 (KS20.8) negative MOC-31 (4561) positive CDX2 (QPB5102M) negative S-100 (4C4.9) negative TTF-1 (8G7G3/1) negative Napsin A (Rabbit Polyclonal) negative CK5-6 (D5 & 1684) negative P40 (BC28) negative CEA (11-7/TF-3HB-1) negative P53 (DO-7) negative, null pattern Ki-67 (30-9) positive, rare cells Vimentin (V9) negative CD45 (RP2/18) negative CD3 (PS1) negative CD5 (SP10) negative CD20 (L26) negative CD79a (11E3) negative CD138 (B-A38) negative MPO (polyclonal) negative CD56 (123C3.D5) positive Chromo (LK2H10) negative Synapto (polyclonal) negative NSE Neuron Specific Enolase negative CALRET (polyclonal) negative These tests were developed and their performance characteristics determined by [facility]. They may not have been cleared or approved by the U.[place]. Food and Drug Administration. The FDA has determined that such clearance or approval is not necessary. The above immunohistochemical/dualISH markers are ordered and reviewed by the Pathologist. INTERPRETATION: Thoracentesis fluid for cytology (cytospin and cellblock): Atypical epithelioid cells present. Case has been reviewed in consultation with Dr. Feng who concurs with the above diagnosis. IDC:[email or web address] 01/31/2024
[2024-01-25 00:26] LABS: Bedside Glucose 110 mg/dL (74-106)
[2024-01-25 01:20] LABS: Bedside Glucose 85 mg/dL (74-106)
--- NOTE | 2024-01-25 02:07 | CON.PCM.CC_ITS ---
HPI Consult Data Date of Consult: 01/25/24 HPI Narrative Reason for Consultation: Hypoglycemia HPI Narrative: 78Y M PMH including but not limited to COPD, DM2, CAD, CHF, recurrent aspiration 2* esoph stenosis sp dilatation who presented from nursing facility with unresponsiveness in the setting of severe hypoglycemia. He reportedly had little PO intake over last 24-48h. On arrival to the ED pt was also on NIV. He improved with correction of his hypoglycemia but his BG continued to after treatment so he was placed on D5 drip and admitted to the ICU where I was consulted for assistance in ICU management. Pt also placed on NIV whenever asleep to prevent hypercapnic acidosis and he is currently sleeping on NIV support. Pt is easy to arouse and appropriately follows commands. Last BG was in the 80s. D5W@ 75 PFSH Medical History (Updated 01/25/24 @ 02:[address] Corina Amador MD) CKD (chronic kidney disease), stage III CAD (coronary artery disease) Heart failure with reduced ejection fraction HTN (hypertension) Dysphagia Hearing loss, left Hearing loss, right Anxiety Diabetes Chronic pain Kidney stones Former smoker Sleep apnea COPD (chronic obstructive pulmonary disease) Myocardial infarct Hypertension DVT (deep venous thrombosis) Home Medications ?Medication ?Instructions ?Recorded ?Last Taken ?Type glipizide 5 mg tablet 5 mg PO .BEFORE MEALS DM 08/20/18 12/05/23 History sertraline 50 mg tablet 100 mg PO DAILY DEPRESSION 08/20/18 12/05/23 History carvedilol 3.125 mg tablet 3.125 mg PO BID blood pressure 08/21/18 12/05/23 Rx clopidogrel 75 mg tablet 75 mg PO DAILY anti platelet 08/21/18 12/05/23 Rx cholecalciferol (vitamin D3) 25 75 mcg PO DAILY vitamin 12/30/22 12/05/23 History mcg (1,000 unit) capsule cyanocobalamin (vitamin B-12) 500 mcg PO DAILY vitamin 12/30/22 12/05/23 History 1,000 mcg capsule aspirin 81 mg tablet,delayed 81 mg PO DAILY heart meera 12/05/23 12/05/23 History release (Adult Aspirin Regimen) insulin glargine 100 unit/mL 18 unit (0.18 mL) subcut QHS bg 30 12/15/23 12/04/23 Rx subcutaneous solution days #0 mL pantoprazole 40 mg tablet,delayed 40 mg PO BID stomach 30 days #60 12/15/23 Unknown Rx release (Protonix) tabs albuterol sulfate 2.5 mg/3 mL 2.5 mg inhalation Q4H PRN PRN 01/16/24 Unknown History (0.083 %) solution for nebulization wheezing budesonide-formoterol HFA 160 2 inh inhalation BID copd 01/16/24 Unknown History mcg-4.5 mcg/actuation aerosol inhaler (Breyna) furosemide 20 mg tablet 20 mg PO DAILY chf 01/16/24 Unknown History guaifenesin 1,200 mg tablet, 1,200 mg PO BID cough 01/16/24 Unknown History extended release 12 hr nitroglycerin 0.4 mg sublingual 0.4 mg sublingual Q5M PRN chest 01/16/24 Unknown History tablet pain tamsulosin 0.4 mg capsule (Flomax) 0.4 mg PO DAILY bph 01/16/24 Unknown History tiotropium 2.5 mcg-olodaterol 2.5 2 inh inhalation DAILY copd 01/16/24 Unknown History mcg/actuation mist for inhalation (Stiolto Respimat) gabapentin 100 mg capsule 100 mg PO TIDCM #0 caps 01/22/24 Unknown Rx insulin lispro 100 unit/mL See Protocol subcut ACHS #0 mL 01/22/24 Unknown Rx subcutaneous pen (Humalog KwikPen (U-100) Insulin) atorvastatin 40 mg tablet 40 mg PO QHS Cholesterol 01/25/24 Unknown History Allergy/AdvReac Type Severity Reaction Status Date / Time No Known Allergies Allergy Verified 12/31/23 11:35 Family History Mother Heart disease Hypertension Father Heart disease Hypertension Surgical History Hx of CABG History of coronary artery stent placement Social History household members: spouse Smoking Status: Former smoker alcohol intake: never substance use type: does not use Objective Data Objective Data Vital Signs: Vital Signs Last response 3 Temperature 36.0 C L 01/25/24 00:00 Temperature Source Temporal 01/25/24 00:00 Pulse Rate 82 01/25/24 00:00 Pulse Strength Normal (2+) 01/24/24 22:00 Respiratory Rate 16 01/25/24 00:00 Respiratory Effort Normal, Non-Labored 01/24/24 22:00 Respiratory Depth Normal 01/24/24 22:00 Respiratory Pattern Tachypnea 01/24/24 23:07 Blood Pressure 118/62 01/25/24 00:00 Blood Pressure Mean 80 01/25/24 00:00 Blood Pressure Source Monitor 01/25/24 00:00 Blood Pressure Position Semi-Fowlers 01/25/24 00:00 Blood Pressure Location Left Arm 01/25/24 00:00 Pulse Ox 95 01/25/24 00:00 Oxygen Delivery Method Bi-pap 01/25/24 00:00 Oxygen Flow Rate (L/min) 6 01/24/24 19:45 Fraction of Inspired Oxygen (FIO2) 40 01/25/24 00:00 EtCo2 (Normal 35-45 , high quality CPR 10-20 & ROSC>/=40mmHg 28 01/24/24 16:39 I&O: I&O Last 24 Hours 3 01/24/24 01/24/24 01/25/24 11:59 23:59 11:59 Intake Total 156.67 / 156.67 0 / 0 Output Total 0 / 0 0 / 0 Balance 156.67 / 156.67 0 / 0 I&O: Total Stay 3 01/24/24 15:25 thru 01/25/24 00:00 Intake Total 156.67 Output Total 0 Balance 156.67 Current Meds Ordered / Administered: Current meds ordered / Administered 3 Generic Name Dose Route Start Last Admin Trade Name Divya PRN Reason Stop Dose Admin Acetaminophen 650 mg 01/24/24 20:59 01/24/24 22:31 Acetaminophen 325 Mg Tablet PO 650 mg Q4H PRN PRN Administration Fever, pain 1-10/10 Al Hydrox/Mg Hydrox/Simethicone 30 ml 01/24/24 20:59 Mag /Aluminum/Simeth Wch Udc 30 Ml Oral.Susp PO Q6H PRN PRN Gastric Burning Albuterol Sulfate 2.5 mg 01/24/24 20:59 Albuterol 2.5 Mg/3 Ml Vial.Neb. INHALATION Q2H PRN PRN Dyspnea, wheezing Aspirin 81 mg 01/25/24 10:00 Aspirin E.C. 81 Mg Tablet PO DAILY DONA Budesonide 0.5 mg 01/24/24 20:59 Budesonide Respules 0.5 Mg/2 Ml Ampul.Neb. INHALATION BID.RT DONA Calamine/Phenol 1 applic 01/24/24 22:00 01/24/24 22:00 Menthol/Lanolin/Calamine/Znox 113 Gm Tube TOPICAL 1 dose 4X/DAY DONA Administration Protocol Carvedilol 3.125 mg 01/24/24 22:00 01/24/24 22:02 Carvedilol 3.125 Mg Tablet PO 3.125 mg BID DONA Administration Protocol Clopidogrel Bisulfate 75 mg 01/25/24 10:00 Clopidogrel Bisulfate 75 Mg Tablet PO DAILY [facility] Enoxaparin Sodium 40 mg 01/25/24 10:00 Enoxaparin 40 Mg/0.4 Ml Syringe SC DAILY [facility] Furosemide 20 mg 01/25/24 10:00 Furosemide 20 Mg Tablet PO DAILY [facility] Protocol Gabapentin 100 mg 01/25/24 08:00 Gabapentin 100 Mg Capsule PO TIDCM [facility] Glucagon 1 mg 01/24/24 20:59 Glucagon 1 Mg/Ml Syringe IM X1 PRN Hypoglycemia Protocol Guaifenesin 1,200 mg 01/24/24 22:00 01/24/24 22:01 Guaifenesin 1,200 Mg Tablet PO 1,200 mg BID DONA Administration Hydralazine HCl 10 mg 01/24/24 20:59 Hydralazine 20 Mg/Ml Vial IV Q4H PRN PRN SBP > 160 Protocol Dextrose/Sodium Chloride 1,000 mls @ 75 mls/hr 01/24/24 20:59 01/24/24 21:02 Dextrose 5%/0.9% Nacl IV 01/25/24 10:18 75 mls/hr .[id number] DONA Administration Dextrose 250 mls @ 0 mls/hr 01/24/24 20:59 01/24/24 23:20 Dextrose 10%-Water IV 125 mls/hr .Q0M PRN Administration HYPOGLYCEMIA Protocol As Directed Sodium Chloride 250 mls @ 15 mls/hr 01/24/24 23:38 IV .[id number] PRN Additional IVPB Infusion Sodium Chloride 250 mls @ 15 mls/hr 01/24/24 23:38 IV .[id number] PRN Saline Flush Melatonin 3 mg 01/24/24 20:59 Melatonin 3 Mg Tablet PO QHS PRN PRN INSOMNIA Methylprednisolone 40 mg 01/24/24 21:00 01/24/24 22:01 Methylprednisolone 40 Mg/Ml Vial IV 40 mg Q8 DONA Administration Ondansetron HCl 4 mg 01/24/24 20:59 Ondansetron 4 Mg/2 Ml Vial IV Q8H PRN PRN NAUSEA/VOMITING Pantoprazole Sodium 40 mg 01/24/24 22:00 01/24/24 22:01 Pantoprazole Sodium 40 Mg Tablet PO 40 mg BID DONA Administration Prochlorperazine Edisylate 5 mg 01/24/24 20:59 Prochlorperazine 10 Mg/2 Ml Vial IV Q4H PRN PRN Breakthrough Nausea/Vomiting Senna/Docusate Sodium 2 tablet 01/24/24 20:59 Senna/Docusate Sodium 1 Tablet PO BID PRN PRN Constipation Sertraline HCl 100 mg 01/25/24 10:00 Sertraline 100 Mg Tablet PO DAILY DONA Sodium Chloride 10 - 40 ml 01/24/24 23:38 0.9% Saline Lock 10 Ml Syringe IV UD PRN SALINE FLUSH Tamsulosin HCl 0.4 mg 01/25/24 10:00 Tamsulosin Hcl 0.4 Mg Capsule PO DAILY [facility] Lab / Micro Data 01/24/24 15:31 01/24/24 15:31 Labs: Laboratory Results - last 24 hr 01/24/24 15:31: WBC 12.9 H, RBC 4.88, Hgb 14.3, Hct 44.9, MCV 92.0, MCH 29.3, M CHC 31.8 L, RDW Std Deviation 57.6 H, RDW Coeff of Audi 17.0 H, Plt Count 156, MPV 11.1, Immature Gran % (Auto) 1.200 H, Neut % (Auto) 88.9 H, Lymph % (Auto) 5.4 L, Stone % (Auto) 4.3, Eos % (Auto) 0.0, Baso % (Auto) 0.2, Absolute Neuts (auto) 11.4 H, Absolute Lymphs (auto) 0.70 L, Nucleated RBC % 0, Sodium 140, Potassium 4.1, Chloride 102, Carbon Dioxide 30.0, Anion Gap 8, BUN 51 H, C reatinine 1.69 H, Est GFR (MDRD) Af Amer 51 L, Est GFR (MDRD) Non-Af 42 L, B UN/Creatinine Ratio 30.2 H, Glucose 19 L*, Calcium 9.4, Total Bilirubin 0.50, Direct Bilirubin 0.23, AST 95 H, ALT 66 H, Alkaline Phosphatase 365 H, Total Protein 6.4, Albumin 2.3 L, Globulin 4.1, Lipase 16 01/24/24 15:32: POC Glucose 273 H 01/24/24 16:26: Urine Color Yellow, Urine Clarity Clear, Urine pH 5.0, Ur Specific Uriah 1.015, Urine Protein 15 H, Urine Glucose (UA) Normal, Urine Ketones Negative, Urine Occult Blood Negative, Urine Nitrite Negative, Urine Bilirubin Negative, Urine Urobilinogen Normal, Ur Leukocyte Esterase 25 H, Urine RBC 0 SEEN, Urine WBC 0-5 SEEN, Ur Squamous Epith Cells 0-5 SEEN, Urine Bacteria 1+, Hyaline Casts 0-5 SEEN, Urine Mucus 0 SEEN 01/24/24 16:32: POC Glucose 107 H 01/24/24 17:11: POC Glucose 120 H 01/24/24 18:32: POC Glucose 93 01/24/24 19:29: POC Glucose 62 L 01/24/24 20:51: POC Glucose 91 01/24/24 22:10: Phosphorus 4.2, Magnesium 1.9, Procalcitonin 0.24 H 01/24/24 22:24: POC Glucose 77 01/24/24 23:16: POC Glucose 55 L 01/24/24 23:40: POC Glucose 118 H 01/25/24 00:08: POC Glucose 110 H 01/25/24 01:02: POC Glucose 85 Imaging Radiology Impression Chest X-Ray 01/24/24 16:07 IMPRESSION: Mild interval improvement in aeration bilaterally since prior study.. Electronically Signed: Say Ellsworth MD at 16:50 EDT , Assessment and Plan . Assessment and plan: PE: General: Well developed, in no distress HEENT: anicteric Sclera, nl nose; supple neck, no masses Cardiovascular: S1/S2; No rubs, gallops; no displaced PM Respiratory: diminished; no crackles, wheezes, or rhonchi Abdominal: Non-tender; Non distended; hypoBS x 4; No Hepatosplenomegaly Extremities: Warm, well perfused; No clubbing, cyanosis; capillary refill < 2 sec Skin: intact, no rashes Neurological: no gross deficits appreciated A/P: #Severe hypoglycemia: cont D5 + hypoglycemia protocol; q1h BG until consistently > 110 #Acute metabolic encephalopathy: 2* to above; improved #Chronic respiratory failure: cont NIV qHS; check ABG; CXR #COPD: cont nebs/steroids #CHF: no obv vol overload on exam; monitor while on above fluids #CKD +/- JOHN: cont strict I/Os; on IVF as above; monitor #DM: see above Critical Care Time: 60 min The entirety of this encounter was done via Telemedicine
[2024-01-25 02:08] LABS: Bedside Glucose 89 mg/dL (74-106)
[2024-01-25] MEDS: Acetaminophen 325 MG Tablet 650 MG PO ×2 (03:06→09:40)
[2024-01-25 03:23] LABS: Allen Test Positive; Base Excess 4 mmol/L (-2 to +2); Blood Gas Specimen Type ART; Mode Not entered; O2 Delivery Device BiPAP; PEEP 10; PO2 58 mmHG (75-100); RR 12; SITE R Radial; SO2 88 % (95-99); Total Carbon Dioxide 32 mmol/L; pCO2 54.4 mmHg (35-45); pH 7.35 (7.35-7.45)
[2024-01-25 03:52] LABS: Bedside Glucose 77 mg/dL (74-106)
[2024-01-25 04:35] LABS: Bedside Glucose 79 mg/dL (74-106)
[2024-01-25 05:28] LABS: Absolute Lymphocyte Count 0.76 X10^3/uL (0.83-4.51); Absolute Neutrophil Count 9.3 X10^3/uL (2.0-7.7); Basophil# 0.01 X10^3/uL; Basophil% 0.1 % (0-1); Hemoglobin 12.2 g/dL (13.0-16.5); Lymphocyte # 0.76 X10^3/ul (0.83-4.51); Lymphocyte % 7.2 % (19-41); Mean Corp Hgb Conc 31.3 g/dL (32-36); Mean Corpuscular Hgb 29.3 pg (27.0-32.0); Mean Corpuscular Volume 93.8 fL (80-94); Mean Platelet Vol. 10.6 fl (6.2-12.0); Monocyte# 0.46 X10^3/uL; Monocyte% 4.4 % (0-10); NRBC Flagged by Analyzer 0 % (0-5); Neutrophil # 9.26 X10^3/uL (2.7-7.7); Neutrophil % 87.5 % (47-70); Platelet Count 112 K/mm3 (150-450); RBC Distribution Width SD 59.5 fl (35.1-43.9); Red Blood Count 4.16 M/mm3 (4.6-6.2); White Blood Count 10.6 K/mm3 (4.4-11.0)
[2024-01-25 05:33] LABS: Bedside Glucose 80 mg/dL (74-106)
[2024-01-25 05:49] LABS: ALB/GLOB Ratio 0.7 RATIO (0.9-2.4); AST(SGOT) 86 U/L (15-37); Alanine Aminotransfer ALT/SGPT 54 U/L (16-61); Albumin, Serum 2.1 g/dL (3.2-5.0); Alkaline Phosphatase 312 U/L (45-117); Anion Gap 4 (5-15); BUN 52 mg/dL (7-18); BUN/Creat Ratio 29.2 RATIO (10-20); Calcium,Total 8.7 mg/dL (8.5-10.1); Chloride 104 mmol/L (98-107); Creatinine, Serum 1.78 mg/dL (0.70-1.30); EST Glomerular Filtration Rate 40 mL/min (>60); Est Glom Filt Rate - Afr Amer 48 mL/min (>60); Estimated Creatinine Clearance 32.51 ml/min; Globulin 3.2 g/dL (2.2-4.2); Glucose 87 mg/dL (74-106); Potassium 4.2 mmol/L (3.5-5.1); Protein, Total 5.3 g/dL (6.4-8.2); Sodium Level 138 mmol/L (136-145)
--- NOTE | 2024-01-25 05:55 | RAD_ITS ---
EXAM: XR CHEST, 1 VIEW CLINICAL INDICATION: resp failure TECHNIQUE: Frontal view of the chest. 4:24 AM. COMPARISON: Previous chest radiographs of 01/24/2024. FINDINGS: LUNGS AND PLEURAL SPACES: Minimal patchy airspace disease within the right mid to lower lung laterally is unchanged. Left mid to lower lung is densely opacified by extensive consolidation and pleural effusion; the abnormal opacities within the left lower lung have worsened since the study of one day ago, with development of silhouetting of the left hemidiaphragm since the prior study. This increasing consolidation is consistent with pneumonia and atelectasis. There is continued silhouetting of the left heart border. Patchy airspace disease within the left upper lung is unchanged. HEART: No definite interval change but evaluation of heart size is limited as the left heart border is now silhouetted. Pulmonary vasculature is within normal limits. MEDIASTINUM: There is persistent superior mediastinal widening with soft tissue fullness in the right paratracheal region, consistent with mediastinal adenopathy as noted on CTA chest of 12/31/2023. BONES/JOINTS: Previous sternotomy. SOFT TISSUES: Unremarkable. RAD/Chest 1 View (Portable) IMPRESSION: Worsening opacification of the left mid to lower lung with development of silhouetting of the left hemidiaphragm, due to worsening infiltrates and probable enlarging left pleural effusion. Stable minimal patchy airspace disease in the right mid to lower lung laterally. No definite right pleural effusion identified on today''s exam. Electronically Signed: Jad Castellanos MD at 5:24 EDT ,
[2024-01-25 06:21] LABS: Bedside Glucose 85 mg/dL (74-106)
[2024-01-25] MEDS: Budesonide Respules 0.5 MG/2 ML AMPUL.NEB. INHALATION ×2 (07:01→19:18)
[2024-01-25 07:15] LABS: Bedside Glucose 89 mg/dL (74-106)
[2024-01-25 08:20] LABS: Bedside Glucose 87 mg/dL (74-106)
[2024-01-25 09:10] LABS: Bedside Glucose 114 mg/dL (74-106)
--- NOTE | 2024-01-25 09:31 | PCM.HOSP.N ---
Hospitalist Note Had lengthy discussion with patient at the bedside this morning. Patient was on BiPAP when I entered the room with good oxygen saturations and mild increased work of breathing. Had respiratory therapy assist with transitioning patient to high flow nasal cannula. Patient was tolerating 7 L high flow nasal cannula with oxygen saturations in the mid 90s after this. Continued to have mild increased work of breathing. Did have a wet cough noted during our encounter. Noted to patient that his chest x-ray unfortunately appears significantly worse than on his recent prior admission. He has worsening opacification of the left mid to lower lung. It is unclear if this is due to a new enlarging left pleural effusion versus due to an airway obstruction. As noted during prior hospitalizations, was treated for left-sided pneumonia a few weeks ago but there was concern this could be a new left-sided lung cancer. Discussed with patient that he was not a candidate for EBUS with biopsy as even if he did have cancer, he unfortunately would not be a candidate for treatment given his poor baseline status. Was also noted that he would likely need to be intubated for EBUS with biopsy and there would be significant concern about being to extubate him. Told him that we we will have radiology come up to ultrasound his left lung to see if there is a pleural effusion that could be tapped; called radiology and someone will be up to ultrasound sometime this morning and determine if there is enough fluid to tap. However, if there is not enough fluid to tap, suspect this is either a new endobronchial lesion due to cancer versus significant mucous plugging. Told patient that if due to cancer versus mucous plugging and his respiratory status was to worsen, he would likely require intubation for further management. Noted to him that given his significant underlying lung disease, it would be very difficult to extubate him if he was to be intubated. Also noted that the process and the left lung may not be reversible and if this was a cancer, would not be treatable. He did demonstrate capacity with his conversation. He told me that he did would not want to be on a ventilator for the rest of his life and would not want a prolonged intubation if this would cause more suffering for him. He also noted that he would not want full resuscitation in the event that his heart was to stop as well. CODE STATUS changed to DNR CCA, DNI. Will follow up radiology findings and start aggressive pulmonary toilet to assist with mucus clearance.
[2024-01-25] MEDS: Furosemide 20 MG Tablet PO (09:40)
[2024-01-25] MEDS: Pantoprazole Sodium 40 MG Tablet PO ×2 (09:40→21:19)
[2024-01-25] MEDS: Sertraline 100 MG Tablet PO (09:40)
[2024-01-25] MEDS: Carvedilol 3.125 MG TABLET PO ×2 (09:40→21:19)
[2024-01-25] MEDS: Tamsulosin HCl 0.4 MG Capsule PO (09:40)
[2024-01-25] MEDS: guaiFENesin 1,200 MG Tablet 1200 MG PO ×2 (09:41→21:20)
[2024-01-25] MEDS: Menthol/Lanolin/Calamine/Znox 113 GM Tube 1 APPLIC TOPICAL ×4 (09:42→21:19)
[2024-01-25 10:15] LABS: Bedside Glucose 99 mg/dL (74-106)
[2024-01-25 11:35] LABS: Bedside Glucose 86 mg/dL (74-106)
[2024-01-25] MEDS: Aspirin E.C. 81 MG Tablet PO (12:27)
--- NOTE | 2024-01-25 12:39 | PCM.PN.HOSP ---
Reason for Visit Reason for Visit: Diagnoses Type 2 diabetes mellitus with hypoglycemia without coma (01/24/24) Transient alteration of awareness (01/24/24) Subjective Subjective Saw patient at bedside this morning. Patient was on BiPAP when I came into the room with good oxygen saturations and only mild increased work of breathing. Had respiratory therapy remove BiPAP and place patient on 7 L nasal cannula in order to have a conversation with him, and patient tolerated this without significant issue. Had good oxygen saturations on that level of oxygen. He did report feeling very tired and feeling worse than prior days. Reported having a worsening cough with some sputum production. No other new concerns today. Objective Data Objective Data Vital Signs: Vital Signs Temp Pulse Resp BP Pulse Ox O2 Del Method O2 Flow Rate 96.7 F L 86 27 H 122/70 H 97 Nasal Cannula 6 01/25/24 08:00 01/25/24 11:00 01/25/24 11:00 01/25/24 11:00 01/25/24 11:00 01/25/24 12:19 01/25/24 12:19 FiO2 50 01/25/24 09:00 Oxygen Flow Rate (L/min) 6 Oxygen Delivery Method Nasal Cannula Weight: 65.1 kg Body Mass Index (BMI) 21.2 Intake & Output: Intake and Output for Last 24 Hours 01/23/24 01/24/24 01/25/24 23:59 23:59 23:59 Intake Total 156.67 / 156.67 1250 / 1250 Output Total 0 / 0 350 / 350 Balance 156.67 / 156.67 900 / 900 Lab / Micro Data 01/25/24 05:15 01/25/24 05:15 Labs: Laboratory Results - last 24 hr 01/24/24 15:31: WBC 12.9 H, RBC 4.88, Hgb 14.3, Hct 44.9, MCV 92.0, MCH 29.3, MCHC 31.8 L, RDW Std Deviation 57.6 H, RDW Coeff of Audi 17.0 H, Plt Count 156, MPV 11.1, Immature Gran % (Auto) 1.200 H, Neut % (Auto) 88.9 H, Lymph % (Auto) 5.4 L, [place] % (Auto) 4.3, Eos % (Auto) 0.0, Baso % (Auto) 0.2, Absolute Neuts (auto) 11.4 H, Absolute Lymphs (auto) 0.70 L, Nucleated RBC % 0, Sodium 140, Potassium 4.1, Chloride 102, Carbon Dioxide 30.0, Anion Gap 8, BUN 51 H, Creatinine 1.69 H, Est GFR (MDRD) Af Amer 51 L, Est GFR (MDRD) Non-Af 42 L, BUN/Creatinine Ratio 30.2 H, Glucose 19 L*, Calcium 9.4, Total Bilirubin 0.50, Direct Bilirubin 0.23, AST 95 H, ALT 66 H, Alkaline Phosphatase 365 H, Total Protein 6.4, Albumin 2.3 L, Globulin 4.1, Lipase 16 01/24/24 15:32: POC Glucose 273 H 01/24/24 16:26: Urine Color Yellow, Urine Clarity Clear, Urine pH 5.0, Ur Specific [place] 1.015, Urine Protein 15 H, Urine Glucose (UA) Normal, Urine Ketones Negative, Urine Occult Blood Negative, Urine Nitrite Negative, Urine Bilirubin Negative, Urine Urobilinogen Normal, Ur Leukocyte Esterase 25 H, Urine RBC 0 SEEN, Urine WBC 0-5 SEEN, Ur Squamous Epith Cells 0-5 SEEN, Urine Bacteria 1+, Hyaline Casts 0-5 SEEN, Urine Mucus 0 SEEN 01/24/24 16:32: POC Glucose 107 H 01/24/24 17:11: POC Glucose 120 H 01/24/24 18:32: POC Glucose 93 01/24/24 19:29: POC Glucose 62 L 01/24/24 20:51: POC Glucose 91 01/24/24 22:10: Phosphorus 4.2, Magnesium 1.9, Procalcitonin 0.24 H 01/24/24 22:24: POC Glucose 77 01/24/24 23:16: POC Glucose 55 L 01/24/24 23:40: POC Glucose 118 H 01/25/24 00:08: POC Glucose 110 H 01/25/24 01:02: POC Glucose 85 01/25/24 01:49: POC Glucose 89 01/25/24 03:33: POC Glucose 77 01/25/24 04:17: POC Glucose 79 01/25/24 05:07: POC Glucose 80 01/25/24 05:15: WBC 10.6, RBC 4.16 L, Hgb 12.2 L, Hct 39.0 L, MCV 93.8, MCH 29.3, MCHC 31.3 L, RDW Std Deviation 59.5 H, RDW Coeff of Audi 17.0 H, Plt Count 112 L, MPV 10.6, Immature Gran % (Auto) 0.800, Neut % (Auto) 87.5 H, Lymph % (Auto) 7.2 L, [place] % (Auto) 4.4, Eos % (Auto) 0.0, Baso % (Auto) 0.1, Absolute Neuts (auto) 9.3 H, Absolute Lymphs (auto) 0.76 L, Nucleated RBC % 0, Sodium 138, Potassium 4.2, Chloride 104, Carbon Dioxide 30.0, Anion Gap 4 L, BUN 52 H, Creatinine 1.78 H, Estim Creat Clear Calc 32.51, Est GFR (MDRD) Af Amer 48 L, Est GFR (MDRD) Non-Af 40 L, BUN/Creatinine Ratio 29.2 H, Glucose 87, Calcium 8.7, Total Bilirubin 0.50, AST 86 H, ALT 54, Alkaline Phosphatase 312 H, Total Protein 5.3 L, Albumin 2.1 L, Globulin 3.2, Albumin/Globulin Ratio 0.7 L 01/25/24 06:04: POC Glucose 85 01/25/24 06:58: POC Glucose 89 01/25/24 07:59: POC Glucose 87 01/25/24 08:51: POC Glucose 114 H 01/25/24 09:53: POC Glucose 99 01/25/24 11:17: POC Glucose 86 ABG Data ABG results: ABG 01/25/24 03:18 Specimen Type ART Sample Site R Radial pH 7.35 Bicarbonate Actual 30.0 H Total CO2 32 Base Excess 4 H O2 Saturation 88 L O2 % 40.0 ABG pCO2 54.4 H ABG pO2 58 L [place] Test Positive Respiration Rate 12 O2 Delivery Device BiPAP Vent Mode Not entered POC PEEP 10 Radiography Diagnostic Testing: Radiology Impression Chest X-Ray 01/24/24 16:07 IMPRESSION: Mild interval improvement in aeration bilaterally since prior study.. Electronically Signed: Say Ellsworth MD at 16:50 EDT , Chest X-Ray 01/25/24 05:55 IMPRESSION: Worsening opacification of the left mid to lower lung with development of silhouetting of the left hemidiaphragm, due to worsening infiltrates and probable enlarging left pleural effusion. Stable minimal patchy airspace disease in the right mid to lower lung laterally. No definite right pleural effusion identified on today''s exam. Electronically Signed: Jad Castellanos MD at 5:24 EDT , Physical Exam Const alert, oriented x3, no apparent distress and average body habitus Constitutional Narrative: Elderly male, chronically ill-appearing, moderately fatigued appearing, breathing comfortably on 7 L nasal cannula, answering questions with short appropriate responses. General Appearance: cooperative HEENT normocephalic, head/scalp atraumatic, hearing grossly normal bilaterally and nasal mucous membranes and turbinates normal Eyes PERRL, EOMs intact bilaterally and conjunctivae normal Neck full ROM Chest inspection of chest normal Resp Resp Narrative: Breathing comfortably on 7 L nasal cannula at rest. Significantly decreased breath sounds throughout left lung specially at the lung base with crackles noted. No wheezing noted. Cardio regular rate, regular rhythm, no murmurs and peripheral pulses 2+ throughout GI normal to inspection, nondistended, normoactive bowel sounds, soft to palpation, non-tender and non-distended Back/Spine normal ROM Extremity normal to inspection Extremity Narrative: +1-2 lower extremity edema bilaterally, stable. Skin no rashes or lesions noted Neuro no focal motor deficits and no sensory deficits noted Speech: speech normal Psych mental status grossly normal Assessment & Plan Assessment/Plan (1) Acute respiratory failure with hypoxia and hypercapnia: (2) Diabetic hypoglycemia: (3) Episode of unresponsiveness: PLAN: Plan Patient is a 78-year-old male who presented [facility] ED on 01/24/2024 with altered mental status and hypoglycemia. 1. Acute on chronic hypoxic respiratory failure, persistent left lung opacity with concern for active lung cancer, left-sided pleural effusion ? Hand Blocker following. On 5 to 6 L nasal cannula on recent discharge. Requiring BiPAP on admission to maintain good oxygen saturations. Chest x-ray on 01/24 showed worsening opacification of left mid to lower lung with probable enlarging left pleural effusion. S/p thoracentesis done by radiology on 01/24 with 880 mL clear red-colored fluid drained. Postthoracentesis chest x-ray still with significant left lung opacity. Per tele-metal control coordinator, have high concern for an active lung cancer. Pleural fluid studies including cytology pending. Had lengthy discussions with patient and family on 01/24, see separate notes for details. Continue supplemental oxygen and wean as able. 2. Hypoglycemia, history of type 2 diabetes mellitus with neuropathy ? Suspect hypoglycemia may have been due to overmedication with insulin at [facility]. Mild elevated LFTs on admission but bilirubin normal, low concern for liver disease contributing to hypoglycemia. Hypoglycemia protocol in place with frequent blood sugar checks and treating with D5 as needed. Patient diet escalated on 01/24 after thoracentesis as well. Continue to monitor and can add sliding scale insulin back on as needed. 3. Acute metabolic encephalopathy, improved ? Presumed secondary to hypoglycemia as noted above with mild worsening respiratory status possibly playing a role. Mentation back to baseline on 01/24. Avoid deliriogenic medications as able. 4. 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 Most recent echo on 12/30 showed EF 20 to 25%, severe generalized LV systolic dysfunction, moderately severe global RV systolic dysfunction. Continue home Lasix and Coreg. Holding home lisinopril given borderline blood pressures for now. 5. Acute on chronic debility ? PT/OT/case management following. Further plans on discharge to be determined. Chronic medical conditions: ? History of CAD s/p stenting, hypertension, hyperlipidemia: Continue home Coreg and Lasix, holding home lisinopril as above. Continue home statin. Continue home aspirin and Plavix. ? GERD: Continue home PPI. ? Depression: Continue home sertraline. ? BPH with obstructive symptoms: Continue home Flomax. DVT prophylaxis: Lovenox CODE STATUS: DNR CCA, DNI Expected disposition: TBD Total clinical time spent by myself addressing the patient's medical issues, reviewing all the data, and collaborating with patient's care team: 50 minutes. Charges/Coding Visit Charges Inpatient E&M: 34414 Subs Hosp L3
[2024-01-25 12:48] LABS: Bedside Glucose 92 mg/dL (74-106)
[2024-01-25 14:08] LABS: Bedside Glucose 71 mg/dL (74-106)
--- NOTE | 2024-01-25 14:10 | NURSING ---
Patient off unit to radiology
--- NOTE | 2024-01-25 14:38 | RAD_ITS ---
STUDY: X-RAY CHEST REASON FOR EXAM: Male, 78 years old. Post thora TECHNIQUE: AP inspiration and expiration views. COMPARISON: Comparison is made with prior chest radiograph done earlier today. FINDINGS: The patient is status post left thoracentesis. No evidence of pneumothorax. Residual pleural parenchymal changes are seen. RAD/Chest Insp/Exp 2 View IMPRESSION: Status post left thoracentesis. No evidence of pneumothorax. Residual left pleural-parenchymal changes seen. Electronically Signed: Randolph Joyce MD at 14:50 EDT ,
--- NOTE | 2024-01-25 14:50 | PRO.PCM_ITS ---
Procedure Report Date of Procedure: 01/25/24 Assessment & Plan Assessment/Plan (1) Bilateral pleural effusion: PLAN: PROCEDURE: Ultrasound Guided Thoracentesis ORDERING PROVIDER: Dr. Aden INDICATION: Male, 78 years old. Left pleural effusion. PROVIDER: COTY Butterfield PROCEDURE: The risks, benefits, and alternatives to the procedure were explained to the patient. The specific risks of bleeding, infection, and pneumothorax requiring chest tube insertion were discussed and accepted. Written informed consent was obtained. The patient was placed in the sitting, upright position. Ultrasonographic evaluation of the bilateral lower pleural spaces was carried out. An adequate pocket was identified in the left lower pleural space. The overlying skin was prepped with chlorhexidine and draped in sterile fashion. 2 % lidocaine was administered subcutaneously for local anesthesia. Under ultrasound guidance, a 5-[place] thoracentesis needle/catheter system was advanced into the left posterior lower pleural fluid collection. 880 ml of clear red colored fluid was drained. 100 mL of this fluid was collected and sent to the laboratory for analysis. The catheter was removed, and a sterile dressing was applied. The patient tolerated the procedure well. A chest x-ray was ordered. IMPRESSION: Successful ultrasound guided thoracentesis of left pleural effusion. Procedures Radiology Radiology US Procedures: 31952 Thoracentesis
[2024-01-25 15:04] LABS: Body Fluid Mononuclear WBC # 0.131 10^3/uL; Body Fluid Mononuclear WBC % 81.4 %; Body Fluid Polynuclear WBC % 18.6 %; Body Fluid Total Cells Counted 0.178 10^3/ul; Red Cell Count/Body Fluid 0.027 10^6/ul; White Blood Count/Body Fluid 0.161 10^3/uL
[2024-01-25] MEDS: Enoxaparin 40 MG/0.4 ML Syringe SC (15:25)
[2024-01-25] MEDS: Clopidogrel Bisulfate 75 MG Tablet PO (15:25)
[2024-01-25 15:26] LABS: LDH,Body Fluid 162 Units/L (Not Establ.); Protein, Body Fluid 2.4 g/dL (Not Establ.)
[2024-01-25 15:32] LABS: Bedside Glucose 69 mg/dL (74-106)
[2024-01-25 16:15] LABS: Bedside Glucose 92 mg/dL (74-106)
[2024-01-25 16:32] LABS: Auto B Fluid Analyzer BKGD Ct COUNTS W/IN LIMITS (W/IN LIMITS); Color/Body Fluid RED; Source- Body Fluid THORACENTESIS
[2024-01-25 16:33] LABS: Appearance/Body Fluid TURBID; Body Fluid QC Type(s) BF1Q
[2024-01-25 16:50] LABS: Lymphocytes 50 %; Macrophages 18 %; Mesothelial Cells 4 %; Monocytes 22 %; Neutrophil (Segs) 6 %
[2024-01-25] MEDS: Gabapentin 100 MG Capsule PO (17:34)
--- NOTE | 2024-01-25 18:11 | PN.HOSP_ITS ---
Hospitalist Note Saw patient at bedside this afternoon after thoracentesis was done. Patient had 880 mL of clear red-colored fluid drained. Postthoracentesis chest x-ray with mild improvement but still with significant left lung opacities. Patient breathing comfortably on 6 L nasal cannula after thoracentesis. Discussed patient's case with tele-ICU physician briefly. He noted that given patient's recent imaging and bloody effusion today, he has high concern that patient has lung cancer. He agreed with prior sentiment shared by Dr. Wood that patient w ould likely need to be intubated for an EBUS with biopsy for a formal diagnosis, and it is highly likely he would not be a candidate for chemotherapy or radiation treatment. He recommended following up on cytology from the pleural fluid to assess for cancer cells. He also recommended further discussion with patient and family on goals of care. I had lengthy discussion with patient's daughter Sara this afternoon over the phone. Discussed with her our concerns the patient has an active lung cancer causing worsening of his respiratory status that unfortunately we would be unable to formally diagnose with biopsy and unable to treat as patient would not be a candidate for chemotherapy or radiation. Answered her questions to the best of my ability. She was very understanding. Plan is to follow-up cytology in the next few days, with likely plan to discuss hospice care moving forward.
[2024-01-25 18:24] LABS: Bedside Glucose 142 mg/dL (74-106)
[2024-01-25] MEDS: Albuterol 2.5 MG/3 ML VIAL.NEB. INHALATION (19:21)
[2024-01-25 20:13] LABS: Bedside Glucose 139 mg/dL (74-106)
[2024-01-25] MEDS: Atorvastatin Calcium 40 MG Tablet PO (21:22)
[2024-01-25 22:38] LABS: Bedside Glucose 115 mg/dL (74-106)
--- NOTE | 2024-01-25 23:38 | PN.CC_ITS ---
Objective Data Objective Data Vital Signs: Vital Signs Last response 3 Temperature 36.3 C L 01/25/24 19:00 Temperature Source Temporal 01/25/24 19:00 Pulse Rate 80 01/25/24 22:00 Pulse Strength Normal (2+) 01/25/24 22:00 Respiratory Rate 23 H 01/25/24 21:00 Respiratory Effort Normal, Non-Labored 01/25/24 16:00 Respiratory Depth Normal 01/25/24 06:00 Respiratory Pattern Normal 01/25/24 19:18 Blood Pressure 119/79 01/25/24 21:00 Blood Pressure Mean 92 01/25/24 21:00 Blood Pressure Source Monitor 01/25/24 21:00 Blood Pressure Position Semi-Fowlers 01/25/24 21:00 Blood Pressure Location Left Arm 01/25/24 21:00 Pulse Ox 99 01/25/24 21:00 Oxygen Delivery Method Nasal Cannula 01/25/24 21:00 Oxygen Flow Rate (L/min) 5 01/25/24 21:00 Fraction of Inspired Oxygen (FIO2) 97 01/25/24 20:00 EtCo2 (Normal 35-45 , high quality CPR 10-20 & ROSC>/=40mmHg 28 01/24/24 16:39 I&O: I&O Last 24 Hours 3 01/24/24 01/25/24 01/25/24 23:59 11:59 23:59 Intake Total 156.67 / 156.67 1250 / 1370 120 / 1370 Output Total 0 / 0 350 / 1230 880 / 1230 Balance 156.67 / 156.67 900 / 140 -760 / 140 I&O: Total Stay 3 01/24/24 15:25 thru 01/25/24 22:00 Intake Total 1526.67 Output Total 1230 Balance 296.67 Current Meds Ordered / Administered: Current meds ordered / Administered 3 Generic Name Dose Route Start Last Admin Trade Name Freq PRN Reason Stop Dose Admin Acetaminophen 650 mg 01/24/24 20:59 01/25/24 09:40 Acetaminophen 325 Mg Tablet PO 650 mg Q4H PRN PRN Administration Fever, pain 1-10/10 Al Hydrox/Mg Hydrox/Simethicone 30 ml 01/24/24 20:59 Mag /Aluminum/Simeth Wch Udc 30 Ml Oral.Susp PO Q6H PRN PRN Gastric Burning Albuterol Sulfate 2.5 mg 01/24/24 20:59 01/25/24 19:21 Albuterol 2.5 Mg/3 Ml Vial.Neb. INHALATION 2.5 mg Q2H PRN PRN Administration Dyspnea, wheezing Aspirin 81 mg 01/25/24 10:00 01/25/24 12:27 Aspirin E.C. 81 Mg Tablet PO 81 mg DAILY DONA Administration Atorvastatin Calcium 40 mg 01/25/24 22:00 01/25/24 21:22 Atorvastatin Calcium 40 Mg Tablet PO 40 mg QHS DONA Administration Budesonide 0.5 mg 01/24/24 20:59 01/25/24 19:18 Budesonide Respules 0.5 Mg/2 Ml Ampul.Neb. INHALATION 0.5 mg BID.RT DONA Administration Calamine/Phenol 1 applic 01/24/24 22:00 01/25/24 21:19 Menthol/Lanolin/Calamine/Znox 113 Gm Tube TOPICAL 1 dose 4X/DAY DONA Administration Protocol Carvedilol 3.125 mg 01/24/24 22:00 01/25/24 21:19 Carvedilol 3.125 Mg Tablet PO 3.125 mg BID DONA Administration Protocol Clopidogrel Bisulfate 75 mg 01/25/24 10:00 01/25/24 15:25 Clopidogrel Bisulfate 75 Mg Tablet PO 75 mg DAILY DONA Administration Enoxaparin Sodium 40 mg 01/25/24 10:00 01/25/24 15:25 Enoxaparin 40 Mg/0.4 Ml Syringe SC 40 mg DAILY DONA Administration Furosemide 20 mg 01/25/24 10:00 01/25/24 09:40 Furosemide 20 Mg Tablet PO 20 mg DAILY DONA Administration Protocol Gabapentin 100 mg 01/25/24 08:00 01/25/24 17:34 Gabapentin 100 Mg Capsule PO 100 mg TIDCM DONA Administration Glucagon 1 mg 01/24/24 20:59 Glucagon 1 Mg/Ml Syringe IM X1 PRN Hypoglycemia Protocol Guaifenesin 1,200 mg 01/24/24 22:00 01/25/24 21:20 Guaifenesin 1,200 Mg Tablet PO 1,200 mg BID DONA Administration Hydralazine HCl 10 mg 01/24/24 20:59 Hydralazine 20 Mg/Ml Vial IV Q4H PRN PRN SBP > 160 Protocol Dextrose 250 mls @ 0 mls/hr 01/24/24 20:59 01/25/24 02:09 Dextrose 10%-Water IV Infused .Q0M PRN Infusion HYPOGLYCEMIA Protocol As Directed Sodium Chloride 250 mls @ 15 mls/hr 01/24/24 23:38 IV .[id number] PRN Additional IVPB Infusion Sodium Chloride 250 mls @ 15 mls/hr 01/24/24 23:38 IV .[id number] PRN Saline Flush Melatonin 3 mg 01/24/24 20:59 Melatonin 3 Mg Tablet PO QHS PRN PRN INSOMNIA Methylprednisolone 40 mg 01/24/24 21:00 01/25/24 21:20 Methylprednisolone 40 Mg/Ml Vial IV 40 mg Q8 DONA Administration Ondansetron HCl 4 mg 01/24/24 20:59 Ondansetron 4 Mg/2 Ml Vial IV Q8H PRN PRN NAUSEA/VOMITING Pantoprazole Sodium 40 mg 01/24/24 22:00 01/25/24 21:19 Pantoprazole Sodium 40 Mg Tablet PO 40 mg BID DONA Administration Prochlorperazine Edisylate 5 mg 01/24/24 20:59 Prochlorperazine 10 Mg/2 Ml Vial IV Q4H PRN PRN Breakthrough Nausea/Vomiting Senna/Docusate Sodium 2 tablet 01/24/24 20:59 Senna/Docusate Sodium 1 Tablet PO BID PRN PRN Constipation Sertraline HCl 100 mg 01/25/24 10:00 01/25/24 09:40 Sertraline 100 Mg Tablet PO 100 mg DAILY DONA Administration Sodium Chloride 10 - 40 ml 01/24/24 23:38 0.9% Saline Lock 10 Ml Syringe IV UD PRN SALINE FLUSH Sodium Chloride 10 - 40 ml 01/25/24 21:17 0.9% Saline Lock 10 Ml Syringe IV UD PRN SALINE FLUSH Tamsulosin HCl 0.4 mg 01/25/24 10:00 01/25/24 09:40 Tamsulosin Hcl 0.4 Mg Capsule PO 0.4 mg DAILY DONA Administration Lab / Micro Data 01/25/24 05:15 01/25/24 05:15 Labs: Laboratory Results - last 24 hr 01/24/24 23:16: POC Glucose 55 L 01/24/24 23:40: POC Glucose 118 H 01/25/24 00:08: POC Glucose 110 H 01/25/24 01:02: POC Glucose 85 01/25/24 01:49: POC Glucose 89 01/25/24 03:33: POC Glucose 77 01/25/24 04:17: POC Glucose 79 01/25/24 05:07: POC Glucose 80 01/25/24 05:15: WBC 10.6, RBC 4.16 L, Hgb 12.2 L, Hct 39.0 L, MCV 93.8, MCH 29.3, MCHC 31.3 L, RDW Std Deviation 59.5 H, RDW Coeff of Audi 17.0 H, Plt Count 112 L, MPV 10.6, Immature Gran % (Auto) 0.800, Neut % (Auto) 87.5 H, Lymph % (Auto) 7.2 L, [place] % (Auto) 4.4, Eos % (Auto) 0.0, Baso % (Auto) 0.1, Absolute Neuts (auto) 9.3 H, Absolute Lymphs (auto) 0.76 L, Nucleated RBC % 0, Sodium 138, Potassium 4.2, Chloride 104, Carbon Dioxide 30.0, Anion Gap 4 L, BUN 52 H, Creatinine 1.78 H, Estim Creat Clear Calc 32.51, Est GFR (MDRD) Af Amer 48 L, E st GFR (MDRD) Non-Af 40 L, BUN/Creatinine Ratio 29.2 H, Glucose 87, Calcium 8.7, Total Bilirubin 0.50, AST 86 H, ALT 54, Alkaline Phosphatase 312 H, Total Protein 5.3 L, Albumin 2.1 L, Globulin 3.2, Albumin/Globulin Ratio 0.7 L 01/25/24 06:04: POC Glucose 85 01/25/24 06:58: POC Glucose 89 01/25/24 07:59: POC Glucose 87 01/25/24 08:51: POC Glucose 114 H 01/25/24 09:53: POC Glucose 99 01/25/24 11:17: POC Glucose 86 01/25/24 12:26: POC Glucose 92 01/25/24 13:50: POC Glucose 71 L 01/25/24 14:43: Fluid Total Protein 2.4, Fluid LDH 162 01/25/24 14:44: Fluid Source THORACENTESIS, Fluid Color RED, Fluid Appearance TURBID, Fluid WBC 0.161, Fluid RBC 0.027, Fluid Tot Cell Count 0.178, Fld Polynuclear WBCs # 0.030, Fld Polynuclear WBCs % 18.6, Fluid Mononuclear WBCs 0.131, Fld Mononuclear WBCs % 81.4, Fluid Neutrophils 6, Fluid Lymphocytes 50, Fluid Monocytes 22, Fluid Macrophages 18, Fld Mesothelial Cells 4, Fl Pathologist Comment May follow, Fluid Comment 2 SEE COMMENT 01/25/24 15:14: POC Glucose 69 L 01/25/24 15:57: POC Glucose 92 01/25/24 18:07: POC Glucose 142 H 01/25/24 19:53: POC Glucose 139 H 01/25/24 22:20: POC Glucose 115 H ABG Data ABG results: ABG 01/25/24 03:18 Specimen Type ART Sample Site R Radial pH 7.35 Bicarbonate Actual 30.0 H Total CO2 32 Base Excess 4 H O2 Saturation 88 L O2 % 40.0 ABG pCO2 54.4 H ABG pO2 58 L [place] Test Positive Respiration Rate 12 O2 Delivery Device BiPAP Vent Mode Not entered POC PEEP 10 Imaging Radiology Impression Chest X-Ray 01/25/24 05:55 IMPRESSION: Worsening opacification of the left mid to lower lung with development of silhouetting of the left hemidiaphragm, due to worsening infiltrates and probable enlarging left pleural effusion. Stable minimal patchy airspace disease in the right mid to lower lung laterally. No definite right pleural effusion identified on today''s exam. Electronically Signed: Jad Castellanos MD at 5:24 EDT , Chest X-Ray 01/25/24 14:38 IMPRESSION: Status post left thoracentesis. No evidence of pneumothorax. Residual left pleural-parenchymal changes seen. Electronically Signed: Randolph Joyce MD at 14:50 EDT , Assessment and Plan . 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
[2024-01-26] VITALS (30 sets, daily range): BP systolic 100–142; BP diastolic 49–112; PULSE 75–96; RESP 12–29; TEMP 36.1–36.7; O2SAT 88–100; BMI 20.4
[2024-01-26 02:54] LABS: Bedside Glucose 144 mg/dL (74-106)
[2024-01-26 02:58] LABS: Bedside Glucose 107 mg/dL (74-106)
[2024-01-26] MEDS: Acetaminophen 325 MG Tablet 650 MG PO ×3 (04:45→22:13)
[2024-01-26 06:26] LABS: Bedside Glucose 135 mg/dL (74-106)
[2024-01-26] MEDS: Budesonide Respules 0.5 MG/2 ML AMPUL.NEB. INHALATION (07:31)
[2024-01-26] MEDS: Albuterol 2.5 MG/3 ML VIAL.NEB. INHALATION (07:31)
[2024-01-26] MEDS: Tamsulosin HCl 0.4 MG Capsule PO (09:47)
[2024-01-26] MEDS: Aspirin E.C. 81 MG Tablet PO (09:47)
[2024-01-26] MEDS: Pantoprazole Sodium 40 MG Tablet PO ×2 (09:47→22:14)
[2024-01-26] MEDS: Furosemide 20 MG Tablet PO (09:47)
[2024-01-26] MEDS: Carvedilol 3.125 MG TABLET PO ×2 (09:47→22:14)
[2024-01-26] MEDS: Sertraline 100 MG Tablet PO (09:47)
[2024-01-26] MEDS: guaiFENesin 1,200 MG Tablet 1200 MG PO ×2 (09:47→22:14)
[2024-01-26] MEDS: Menthol/Lanolin/Calamine/Znox 113 GM Tube 1 APPLIC TOPICAL ×4 (09:48→22:15)
[2024-01-26] MEDS: Gabapentin 100 MG Capsule PO ×3 (09:56→18:46)
[2024-01-26] MEDS: Enoxaparin 40 MG/0.4 ML Syringe SC (09:56)
[2024-01-26] MEDS: Clopidogrel Bisulfate 75 MG Tablet PO (09:56)
[2024-01-26 10:15] LABS: Hematocrit 40.7 % (40-54); Hemoglobin 12.7 g/dL (13.0-16.5); Mean Corp Hgb Conc 31.2 g/dL (32-36); Mean Corpuscular Volume 92.9 fL (80-94); Platelet Count 146 K/mm3 (150-450); RBC Distribution Width CV 16.8 % (11.6-14.6); Red Blood Count 4.38 M/mm3 (4.6-6.2); White Blood Count 12.8 K/mm3 (4.4-11.0)
[2024-01-26 10:34] LABS: Anion Gap 8 (5-15); BUN 53 mg/dL (7-18); Calcium,Total 9.1 mg/dL (8.5-10.1); Chloride 104 mmol/L (98-107); Creatinine, Serum 1.83 mg/dL (0.70-1.30); EST Glomerular Filtration Rate 38 mL/min (>60); Est Glom Filt Rate - Afr Amer 46 mL/min (>60); Glucose 147 mg/dL (74-106); Sodium Level 140 mmol/L (136-145)
[2024-01-26 10:48] LABS: LDH 256 U/L (87-241)
[2024-01-26 11:53] LABS: Bedside Glucose 157 mg/dL (74-106)
--- NOTE | 2024-01-26 11:59 | PCM.PN.HOSP ---
Reason for Visit Reason for Visit: Diagnoses Type 2 diabetes mellitus with hypoglycemia without coma (01/24/24) Pleural effusion, not elsewhere classified (01/24/24) Acute respiratory failure with hypoxia (01/24/24) Acute respiratory failure with hypercapnia (01/24/24) Transient alteration of awareness (01/24/24) Subjective Subjective Saw patient at bedside this morning. Patient appeared slightly improved today from yesterday. He continued to look fatigued but was breathing comfortably on 5 L nasal cannula. He did have some wheezing noted on exam but his cough did not sound as wet today as yesterday. Blood glucose has been stable since yesterday evening and diet has been resumed. Patient states he does not have much of an appetite but will eat a small breakfast this morning. No other new concerns today. Objective Data Objective Data Vital Signs: Vital Signs Temp Pulse Resp BP Pulse Ox O2 Del Method O2 Flow Rate 97.1 F L 86 21 H 120/83 H 97 Nasal Cannula 6 01/26/24 08:00 01/26/24 11:00 01/26/24 11:00 01/26/24 11:00 01/26/24 11:00 01/26/24 11:00 01/26/24 11:00 FiO2 40 01/26/24 07:00 Oxygen Flow Rate (L/min) 6 Oxygen Delivery Method Nasal Cannula Weight: 62.8 kg Body Mass Index (BMI) 20.4 Intake & Output: Intake and Output for Last 24 Hours 01/24/24 01/25/24 01/26/24 23:59 23:59 23:59 Intake Total 156.67 / 156.67 1370 / 1370 200 / 200 Output Total 0 / 0 1230 / 1230 550 / 550 Balance 156.67 / 156.67 140 / 140 -350 / -350 Lab / Micro Data 01/26/24 10:05 01/26/24 10:05 Labs: Laboratory Results - last 24 hr 01/25/24 12:26: POC Glucose 92 01/25/24 13:50: POC Glucose 71 L 01/25/24 14:43: Fluid Total Protein 2.4, Fluid LDH 162 01/25/24 14:44: Fluid Source THORACENTESIS, Fluid Color RED, Fluid Appearance TURBID, Fluid WBC 0.161, Fluid RBC 0.027, Fluid Tot Cell Count 0.178, Fld Polynuclear WBCs # 0.030, Fld Polynuclear WBCs % 18.6, Fluid Mononuclear WBCs 0.131, Fld Mononuclear WBCs % 81.4, Fluid Neutrophils 6, Fluid Lymphocytes 50, Fluid Monocytes 22, Fluid Macrophages 18, Fld Mesothelial Cells 4, Fl Pathologist Comment May follow, Fluid Comment 2 SEE COMMENT 01/25/24 15:14: POC Glucose 69 L 01/25/24 15:57: POC Glucose 92 01/25/24 18:07: POC Glucose 142 H 01/25/24 19:53: POC Glucose 139 H 01/25/24 22:20: POC Glucose 115 H 01/26/24 00:34: POC Glucose 144 H 01/26/24 02:40: POC Glucose 107 H 01/26/24 06:07: POC Glucose 135 H 01/26/24 10:05: WBC 12.8 H, RBC 4.38 L, Hgb 12.7 L, Hct 40.7, MCV 92.9, MCH 29.0, MCHC 31.2 L, RDW Std Deviation 57.0 H, RDW Coeff of Audi 16.8 H, Plt Count 146 L, MPV 11.0, Sodium 140, Potassium 4.0, Chloride 104, Carbon Dioxide 28.0, Anion Gap 8, BUN 53 H, Creatinine 1.83 H, Estim Creat Clear Calc 30.50, Est GFR (MDRD) Af Amer 46 L, Est GFR (MDRD) Non-Af 38 L, BUN/Creatinine Ratio 29.0 H, Glucose 147 H, Calcium 9.1, Lactate Dehydrogenase 256 H 01/26/24 11:36: POC Glucose 157 H Radiography Diagnostic Testing: Radiology Impression Chest X-Ray 01/25/24 14:38 IMPRESSION: Status post left thoracentesis. No evidence of pneumothorax. Residual left pleural-parenchymal changes seen. Electronically Signed: Randolph Joyce MD at 14:50 EDT , Physical Exam Const alert, oriented x3, no apparent distress and average body habitus Constitutional Narrative: Elderly male, chronically ill-appearing, mildly fatigued appearing, breathing comfortably on 5 L nasal cannula, answering questions with short appropriate responses. Mildly improved from admission. General Appearance: cooperative HEENT normocephalic, head/scalp atraumatic, hearing grossly normal bilaterally and nasal mucous membranes and turbinates normal Eyes PERRL, EOMs intact bilaterally and conjunctivae normal Neck full ROM Chest inspection of chest normal Resp Resp Narrative: Breathing comfortably on 5 L nasal cannula at rest. Moderately decreased breath sounds throughout left lung specially at the lung base with crackles noted. Mild wheezing noted in upper airways bilaterally. Cardio regular rate, regular rhythm, no murmurs and peripheral pulses 2+ throughout GI normal to inspection, nondistended, normoactive bowel sounds, soft to palpation, non-tender and non-distended Back/Spine normal ROM Extremity normal to inspection Extremity Narrative: +1-2 lower extremity edema bilaterally, stable. Skin no rashes or lesions noted Neuro no focal motor deficits and no sensory deficits noted Speech: speech normal Psych mental status grossly normal Assessment & Plan Assessment/Plan (1) Acute respiratory failure with hypoxia and hypercapnia: (2) Diabetic hypoglycemia: (3) Episode of unresponsiveness: PLAN: Plan Patient is a 78-year-old male who presented [facility] [place] ED on 01/24/2024 with altered mental status and hypoglycemia. 1. Acute on chronic hypoxic respiratory failure, persistent left lung opacity with concern for active lung cancer, left-sided pleural effusion ? Pressure Supervisor following. On 5 to 6 L nasal cannula on recent discharge. Requiring BiPAP on admission to maintain good oxygen saturations. Chest x-ray on 01/24 showed worsening opacification of left mid to lower lung with probable enlarging left pleural effusion. S/p thoracentesis done by radiology on 01/24 with 880 mL clear red-colored fluid drained. Postthoracentesis chest x-ray still with significant left lung opacity. Per tele-dual rate dealer, have high concern for an active lung cancer. Pleural fluid studies with total protein 2.4, LDH 162, normal WBC count but 50% lymphocytes noted; borderline values but clinically does not meet Light's criteria and thus is a transudative effusion. Cytology remains pending. Had lengthy discussions with patient and family on 01/24, see separate notes for details. Continue supplemental oxygen and wean as able. 2. Hypoglycemia, history of type 2 diabetes mellitus with neuropathy ? Suspect hypoglycemia may have been due to overmedication with insulin at [facility]. Mild elevated LFTs on admission but bilirubin normal, low concern for liver disease contributing to hypoglycemia. Improved by evening of 01/24 after treatment with D5. Continue blood glucose checks with meals but will hold on adding sliding scale insulin for now. Okay for regular diet at this point. 3. Acute metabolic encephalopathy, improved ? Presumed secondary to hypoglycemia as noted above with mild worsening respiratory status possibly playing a role. Mentation back to baseline on 01/24. Avoid deliriogenic medications as able. 4. 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 Most recent echo on 12/30 showed EF 20 to 25%, severe generalized LV systolic dysfunction, moderately severe global RV systolic dysfunction. Continue home Lasix and Coreg. Holding home lisinopril given borderline blood pressures for now. 5. Acute on chronic debility ? PT/OT/case management following. Further plans on discharge to be determined. Chronic medical conditions: ? History of CAD s/p stenting, hypertension, hyperlipidemia: Continue home Coreg and Lasix, holding home lisinopril as above. Continue home statin. Continue home aspirin and Plavix. ? GERD: Continue home PPI. ? Depression: Continue home sertraline. ? BPH with obstructive symptoms: Continue home Flomax. DVT prophylaxis: Lovenox CODE STATUS: DNR CCA, DNI Expected disposition: TBD Total clinical time spent by myself addressing the patient's medical issues, reviewing all the data, and collaborating with patient's care team: 35 minutes. Charges/Coding Visit Charges Inpatient E&M: 55666 Subs Hosp L2
[2024-01-26] MEDS: Ipratropium/Albuterol Sulfate 3 ML AMPUL.NEB INHALATION ×2 (12:51→19:11)
--- NOTE | 2024-01-26 13:31 | PN.CC_ITS ---
Objective Data Objective Data Vital Signs: Vital Signs Last response 3 Temperature 36.2 C L 01/26/24 08:00 Temperature Source Temporal 01/26/24 08:00 Pulse Rate 85 01/26/24 13:00 Pulse Strength Normal (2+) 01/26/24 10:00 Respiratory Rate 29 H 01/26/24 13:00 Respiratory Effort Normal, Non-Labored 01/26/24 10:00 Respiratory Depth Normal 01/26/24 10:00 Respiratory Pattern Tachypnea 01/26/24 10:00 Blood Pressure 105/49 L 01/26/24 13:00 Blood Pressure Mean 67 01/26/24 13:00 Blood Pressure Source Monitor 01/26/24 13:00 Blood Pressure Position Semi-Fowlers 01/26/24 13:00 Blood Pressure Location Left Forearm 01/26/24 13:00 Pulse Ox 99 01/26/24 13:00 Oxygen Delivery Method Nasal Cannula 01/26/24 13:00 Oxygen Flow Rate (L/min) 6 01/26/24 13:00 Fraction of Inspired Oxygen (FIO2) 40 01/26/24 07:00 EtCo2 (Normal 35-45 , high quality CPR 10-20 & ROSC>/=40mmHg 28 01/24/24 16:39 I&O: I&O Last 24 Hours 3 01/25/24 01/26/24 01/26/24 23:59 11:59 23:59 Intake Total 120 / 1370 200 / 200 Output Total 880 / 1230 550 / 550 Balance -760 / 140 -350 / -350 I&O: Total Stay 3 01/24/24 15:25 thru 01/26/24 11:44 Intake Total 1726.67 Output Total 1780 Balance -53.33 Current Meds Ordered / Administered: Current meds ordered / Administered 3 Generic Name Dose Route Start Last Admin Trade Name Freq PRN Reason Stop Dose Admin Acetaminophen 650 mg 01/24/24 20:59 01/26/24 09:56 Acetaminophen 325 Mg Tablet PO 650 mg Q4H PRN PRN Administration Fever, pain 1-10/10 Al Hydrox/Mg Hydrox/Simethicone 30 ml 01/24/24 20:59 Mag /Aluminum/Simeth Wch Udc 30 Ml Oral.Susp PO Q6H PRN PRN Gastric Burning Albuterol Sulfate 2.5 mg 01/24/24 20:59 01/26/24 07:31 Albuterol 2.5 Mg/3 Ml Vial.Neb. INHALATION 2.5 mg Q2H PRN PRN Administration Dyspnea, wheezing Albuterol/Ipratropium 3 ml 01/26/24 09:45 01/26/24 12:51 Ipratropium/Albuterol Sulfate 3 Ml Ampul.Neb INHALATION 3 ml Q6HWA.RT DONA Administration Aspirin 81 mg 01/25/24 10:00 01/26/24 09:47 Aspirin E.C. 81 Mg Tablet PO 81 mg DAILY DONA Administration Atorvastatin Calcium 40 mg 01/25/24 22:00 01/25/24 21:22 Atorvastatin Calcium 40 Mg Tablet PO 40 mg QHS DONA Administration Calamine/Phenol 1 applic 01/24/24 22:00 01/26/24 13:11 Menthol/Lanolin/Calamine/Znox 113 Gm Tube TOPICAL 1 dose 4X/DAY DONA Administration Protocol Carvedilol 3.125 mg 01/24/24 22:00 01/26/24 09:47 Carvedilol 3.125 Mg Tablet PO 3.125 mg BID DONA Administration Protocol Clopidogrel Bisulfate 75 mg 01/25/24 10:00 01/26/24 09:56 Clopidogrel Bisulfate 75 Mg Tablet PO 75 mg DAILY DONA Administration Enoxaparin Sodium 40 mg 01/25/24 10:00 01/26/24 09:56 Enoxaparin 40 Mg/0.4 Ml Syringe SC 40 mg DAILY DONA Administration Furosemide 20 mg 01/25/24 10:00 01/26/24 09:47 Furosemide 20 Mg Tablet PO 20 mg DAILY DONA Administration Protocol Gabapentin 100 mg 01/25/24 08:00 01/26/24 13:11 Gabapentin 100 Mg Capsule PO 100 mg TIDCM DONA Administration Glucagon 1 mg 01/24/24 20:59 Glucagon 1 Mg/Ml Syringe IM X1 PRN Hypoglycemia Protocol Guaifenesin 1,200 mg 01/24/24 22:00 01/26/24 09:47 Guaifenesin 1,200 Mg Tablet PO 1,200 mg BID DONA Administration Hydralazine HCl 10 mg 01/24/24 20:59 Hydralazine 20 Mg/Ml Vial IV Q4H PRN PRN SBP > 160 Protocol Dextrose 250 mls @ 0 mls/hr 01/24/24 20:59 01/25/24 02:09 Dextrose 10%-Water IV Infused .Q0M PRN Infusion HYPOGLYCEMIA Protocol As Directed Sodium Chloride 250 mls @ 15 mls/hr 01/24/24 23:38 IV .[id number] PRN Additional IVPB Infusion Sodium Chloride 250 mls @ 15 mls/hr 01/24/24 23:38 IV .[id number] PRN Saline Flush Melatonin 3 mg 01/24/24 20:59 Melatonin 3 Mg Tablet PO QHS PRN PRN INSOMNIA Methylprednisolone 40 mg 01/24/24 21:00 01/26/24 13:11 Methylprednisolone 40 Mg/Ml Vial IV 40 mg Q8 DONA Administration Ondansetron HCl 4 mg 01/24/24 20:59 Ondansetron 4 Mg/2 Ml Vial IV Q8H PRN PRN NAUSEA/VOMITING Pantoprazole Sodium 40 mg 01/24/24 22:00 01/26/24 09:47 Pantoprazole Sodium 40 Mg Tablet PO 40 mg BID DONA Administration Prochlorperazine Edisylate 5 mg 01/24/24 20:59 Prochlorperazine 10 Mg/2 Ml Vial IV Q4H PRN PRN Breakthrough Nausea/Vomiting Senna/Docusate Sodium 2 tablet 01/24/24 20:59 Senna/Docusate Sodium 1 Tablet PO BID PRN PRN Constipation Sertraline HCl 100 mg 01/25/24 10:00 01/26/24 09:47 Sertraline 100 Mg Tablet PO 100 mg DAILY DONA Administration Sodium Chloride 10 - 40 ml 01/24/24 23:38 0.9% Saline Lock 10 Ml Syringe IV UD PRN SALINE FLUSH Sodium Chloride 10 - 40 ml 01/25/24 21:17 0.9% Saline Lock 10 Ml Syringe IV UD PRN SALINE FLUSH Tamsulosin HCl 0.4 mg 01/25/24 10:00 01/26/24 09:47 Tamsulosin Hcl 0.4 Mg Capsule PO 0.4 mg DAILY DONA Administration Lab / Micro Data 01/26/24 10:05 01/26/24 10:05 Labs: Laboratory Results - last 24 hr 01/25/24 13:50: POC Glucose 71 L 01/25/24 14:43: Fluid Total Protein 2.4, Fluid LDH 162 01/25/24 14:44: Fluid Source THORACENTESIS, Fluid Color RED, Fluid Appearance TURBID, Fluid WBC 0.161, Fluid RBC 0.027, Fluid Tot Cell Count 0.178, Fld Polynuclear WBCs # 0.030, Fld Polynuclear WBCs % 18.6, Fluid Mononuclear WBCs 0.131, Fld Mononuclear WBCs % 81.4, Fluid Neutrophils 6, Fluid Lymphocytes 50, Fluid Monocytes 22, Fluid Macrophages 18, Fld Mesothelial Cells 4, Fl Pathologist Comment May follow, Fluid Comment 2 SEE COMMENT 01/25/24 15:14: POC Glucose 69 L 01/25/24 15:57: POC Glucose 92 01/25/24 18:07: POC Glucose 142 H 01/25/24 19:53: POC Glucose 139 H 01/25/24 22:20: POC Glucose 115 H 01/26/24 00:34: POC Glucose 144 H 01/26/24 02:40: POC Glucose 107 H 01/26/24 06:07: POC Glucose 135 H 01/26/24 10:05: WBC 12.8 H, RBC 4.38 L, Hgb 12.7 L, Hct 40.7, MCV 92.9, MCH 29.0, MCHC 31.2 L, RDW Std Deviation 57.0 H, RDW Coeff of Audi 16.8 H, Plt Count 146 L, MPV 11.0, Sodium 140, Potassium 4.0, Chloride 104, Carbon Dioxide 28.0, Anion Gap 8, BUN 53 H, Creatinine 1.83 H, Estim Creat Clear Calc 30.50, Est GFR (MDRD) Af Amer 46 L, Est GFR (MDRD) Non-Af 38 L, BUN/Creatinine Ratio 29.0 H, G lucose 147 H, Calcium 9.1, Lactate Dehydrogenase 256 H 01/26/24 11:36: POC Glucose 157 H Imaging Radiology Impression Chest X-Ray 01/25/24 14:38 IMPRESSION: Status post left thoracentesis. No evidence of pneumothorax. Residual left pleural-parenchymal changes seen. Electronically Signed: Randolph Joyce MD at 14:50 EDT , Assessment and Plan . 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, very likely w/ a malignant effusion on the left Await pleural fluid cytology Care planning ongoing PE: General: Well developed, in no distress HEENT: anicteric Sclera, nl nose; supple neck, no masses Cardiovascular: S1/S2; No rubs, gallops; no displaced PM Respiratory: diminished; no crackles, wheezes, or rhonchi Abdominal: Non-tender; Non distended; hypoBS x 4; No Hepatosplenomegaly Extremities: Warm, well perfused; No clubbing, cyanosis; capillary refill < 2 sec Skin: intact, no rashes Neurological: no gross deficits appreciated A/P: #Severe hypoglycemia: resolved #Acute metabolic encephalopathy: 2* to above; improved #Chronic respiratory failure: cont NIV qHS; O2 as needed #COPD: cont nebs/steroids #CHF: no obv vol overload on exam; monitor #CKD +/- JOHN: cont strict I/Os; monitor #DM: see above #Abnormal CT chest: see above; pleural fluid cytology pending Critical Care Time: 50 min The entirety of this encounter was done via Telemedicine
[2024-01-26 16:51] LABS: Bedside Glucose 161 mg/dL (74-106)
[2024-01-26] MEDS: Loperamide 2 MG Capsule PO (18:46)
[2024-01-26] MEDS: Atorvastatin Calcium 40 MG Tablet PO (22:15)
[2024-01-26] MEDS: 0.9% Saline Lock 10 ML Syringe IV (22:16)
[2024-01-26 22:42] LABS: Bedside Glucose 189 mg/dL (74-106)
--- NOTE | 2024-01-26 23:02 | NURSING ---
2200- pt placed on bipap 40%, 2240- pt requesting bipap off, placed back onto 6LNC
--- NOTE | 2024-01-26 23:45 | NURSING ---
3619- Dr. Amador notified that patient does not having sliding scale ordered yet since admission was initially for hypoglycemia. Last BGT 186. Per Dr. Amador, continue to monitor pt BGT to ensure he does not drop again before adding back insulin.
--- NOTE | 2024-01-26 23:48 | CPS ---
Pt refuses at this time
[2024-01-27] VITALS (26 sets, daily range): BP systolic 93–123; BP diastolic 46–87; PULSE 68–94; RESP 16–26; TEMP 36.1–36.7; O2SAT 90–100
[2024-01-27] MEDS: 0.9% Saline Lock 10 ML Syringe IV (04:50)
[2024-01-27] MEDS: Acetaminophen 325 MG Tablet 650 MG PO ×2 (04:51→21:43)
[2024-01-27 05:02] LABS: Hematocrit 40.3 % (40-54); Hemoglobin 12.9 g/dL (13.0-16.5); Mean Corpuscular Hgb 29.3 pg (27.0-32.0); Mean Corpuscular Volume 91.4 fL (80-94); Mean Platelet Vol. 10.8 fl (6.2-12.0); Platelet Count 141 K/mm3 (150-450); RBC Distribution Width CV 16.6 % (11.6-14.6); Red Blood Count 4.41 M/mm3 (4.6-6.2); White Blood Count 9.9 K/mm3 (4.4-11.0)
[2024-01-27 05:25] LABS: Anion Gap 7 (5-15); BUN 55 mg/dL (7-18); Calcium,Total 8.9 mg/dL (8.5-10.1); Chloride 103 mmol/L (98-107); Creatinine, Serum 1.72 mg/dL (0.70-1.30); EST Glomerular Filtration Rate 41 mL/min (>60); Est Glom Filt Rate - Afr Amer 50 mL/min (>60); Estimated Creatinine Clearance 31.89 ml/min; Glucose 221 mg/dL (74-106); Potassium 4.1 mmol/L (3.5-5.1); Sodium Level 137 mmol/L (136-145)
[2024-01-27] MEDS: Ipratropium/Albuterol Sulfate 3 ML AMPUL.NEB INHALATION ×3 (07:16→18:32)
[2024-01-27] MEDS: Gabapentin 100 MG Capsule PO ×3 (08:50→16:46)
[2024-01-27] MEDS: Enoxaparin 40 MG/0.4 ML Syringe SC (08:51)
[2024-01-27] MEDS: Pantoprazole Sodium 40 MG Tablet PO ×2 (08:52→21:35)
[2024-01-27] MEDS: guaiFENesin 1,200 MG Tablet 1200 MG PO ×2 (08:52→21:36)
[2024-01-27] MEDS: Aspirin E.C. 81 MG Tablet PO (08:52)
[2024-01-27] MEDS: Clopidogrel Bisulfate 75 MG Tablet PO (08:53)
[2024-01-27] MEDS: Sertraline 100 MG Tablet PO (08:53)
[2024-01-27] MEDS: Carvedilol 3.125 MG TABLET PO ×2 (08:53→21:35)
[2024-01-27] MEDS: Menthol/Lanolin/Calamine/Znox 113 GM Tube 1 APPLIC TOPICAL ×4 (08:54→21:36)
[2024-01-27] MEDS: Furosemide 20 MG Tablet PO (08:54)
[2024-01-27] MEDS: Tamsulosin HCl 0.4 MG Capsule PO (08:55)
[2024-01-27 11:52] LABS: Bedside Glucose 287 mg/dL (74-106)
--- NOTE | 2024-01-27 12:07 | PCM.PN.HOSP ---
Reason for Visit Reason for Visit: Diagnoses Type 2 diabetes mellitus with hypoglycemia without coma (01/24/24) Pleural effusion, not elsewhere classified (01/24/24) Acute respiratory failure with hypoxia (01/24/24) Acute respiratory failure with hypercapnia (01/24/24) Transient alteration of awareness (01/24/24) Subjective Subjective Saw patient at bedside this morning. Patient was more fatigued appearing this morning than yesterday and sounded more congested in his upper airways than yesterday as well. He was reporting ongoing back pain that seem to be worse than yesterday. No other new concerns today. Objective Data Objective Data Vital Signs: Vital Signs Temp Pulse Resp BP Pulse Ox O2 Del Method O2 Flow Rate 97.6 F L 78 24 H 105/87 H 92 High Flow 6 01/27/24 04:00 01/27/24 10:00 01/27/24 10:00 01/27/24 10:00 01/27/24 10:00 01/27/24 10:00 01/27/24 10:00 FiO2 40 01/27/24 05:00 Oxygen Flow Rate (L/min) 6 Oxygen Delivery Method High Flow Weight: 61.7 kg Body Mass Index (BMI) 20.0 Intake & Output: Intake and Output for Last 24 Hours 01/25/24 01/26/24 01/27/24 23:59 23:59 23:59 Intake Total 1370 / 1370 200 / 200 Output Total 1230 / 1230 900 / 900 200 / 200 Balance 140 / 140 -700 / -700 -200 / -200 Lab / Micro Data 01/27/24 04:59 01/27/24 04:59 Labs: Laboratory Results - last 24 hr 01/26/24 16:33: POC Glucose 161 H 01/26/24 22:20: POC Glucose 189 H 01/27/24 04:59: WBC 9.9, RBC 4.41 L, Hgb 12.9 L, Hct 40.3, MCV 91.4, MCH 29.3, MCHC 32.0, RDW Std Deviation 56.0 H, RDW Coeff of Audi 16.6 H, Plt Count 141 L, MPV 10.8, Sodium 137, Potassium 4.1, Chloride 103, Carbon Dioxide 27.0, Anion Gap 7, BUN 55 H, Creatinine 1.72 H, Estim Creat Clear Calc 31.89, Est GFR (MDRD) Af Amer 50 L, Est GFR (MDRD) Non-Af 41 L, BUN/Creatinine Ratio 32.0 H, Glucose 221 H, Calcium 8.9 01/27/24 11:26: POC Glucose 287 H Micro: Microbiology 01/26/24 14:00 Stool Clostridioides difficile (PCR) - Final Physical Exam Const alert, oriented x3, no apparent distress and average body habitus Constitutional Narrative: Elderly male, chronically ill-appearing, moderately fatigued appearing, breathing comfortably on 6 L nasal cannula, answering questions with short appropriate responses, mildly uncomfortable appearing due to ongoing back pain. Slightly worse from yesterday. General Appearance: cooperative HEENT normocephalic, head/scalp atraumatic, hearing grossly normal bilaterally and nasal mucous membranes and turbinates normal Eyes PERRL, EOMs intact bilaterally and conjunctivae normal Neck full ROM Chest inspection of chest normal Resp Resp Narrative: Breathing comfortably on 6 L nasal cannula at rest. Moderately decreased breath sounds throughout left lung specially at the lung base with crackles noted. Mildly worsening congestion in upper airways noted today. Mild wheezing noted in upper airways bilaterally. Slightly worse than yesterday. Cardio regular rate, regular rhythm, no murmurs and peripheral pulses 2+ throughout GI normal to inspection, nondistended, normoactive bowel sounds, soft to palpation, non-tender and non-distended Back/Spine normal ROM Extremity normal to inspection Extremity Narrative: +1-2 lower extremity edema bilaterally, stable. Skin no rashes or lesions noted Neuro no focal motor deficits and no sensory deficits noted Speech: speech normal Psych mental status grossly normal Assessment & Plan Assessment/Plan (1) Acute respiratory failure with hypoxia and hypercapnia: (2) Diabetic hypoglycemia: (3) Episode of unresponsiveness: PLAN: Plan Patient is a 78-year-old male who presented [facility] ED on 01/24/2024 with altered mental status and hypoglycemia. 1. Acute on chronic hypoxic respiratory failure, persistent left lung opacity with concern for active lung cancer, left-sided pleural effusion ? Guitar Player following. On 5 to 6 L nasal cannula on recent discharge. Requiring BiPAP on admission to maintain good oxygen saturations. Chest x-ray on 01/24 showed worsening opacification of left mid to lower lung with probable enlarging left pleural effusion. S/p thoracentesis done by radiology on 01/24 with 880 mL clear red-colored fluid drained. Postthoracentesis chest x-ray still with significant left lung opacity. Per tele-administrative program specialist, strongly suspect a locally advanced bronchogenic carcinoma. Pleural fluid studies monocytic predominant. Cytology remains pending and will not be available until 01/28 at the earliest. Had lengthy discussions with patient and family on 01/24, see separate notes for details. Tentatively planning on hospice discussion on 01/28. Continue supplemental oxygen and wean as able. 2. Hypoglycemia, history of type 2 diabetes mellitus with neuropathy ? Suspect hypoglycemia may have been due to overmedication with insulin at [facility]. Mild elevated LFTs on admission but bilirubin normal, low concern for liver disease contributing to hypoglycemia. Improved by evening of 01/24 after treatment with D5. Blood sugars improved and sliding-scale insulin added back on with meals on 01/26. Okay for regular diet at this point. 3. Acute metabolic encephalopathy, improved ? Presumed secondary to hypoglycemia as noted above with mild worsening respiratory status possibly playing a role. Mentation back to baseline on 01/24. Avoid deliriogenic medications as able. 4. 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 Most recent echo on 12/30 showed EF 20 to 25%, severe generalized LV systolic dysfunction, moderately severe global RV systolic dysfunction. Continue home Lasix and Coreg. Holding home lisinopril given borderline blood pressures for now. 5. Acute on chronic debility ? PT/OT/case management following. Further plans on discharge to be determined. Chronic medical conditions: ? History of CAD s/p stenting, hypertension, hyperlipidemia: Continue home Coreg and Lasix, holding home lisinopril as above. Continue home statin. Continue home aspirin and Plavix. ? GERD: Continue home PPI. ? Depression: Continue home sertraline. ? BPH with obstructive symptoms: Continue home Flomax. DVT prophylaxis: Lovenox CODE STATUS: DNR CCA, DNI Expected disposition: TBD Total clinical time spent by myself addressing the patient's medical issues, reviewing all the data, and collaborating with patient's care team: 35 minutes. Charges/Coding Visit Charges Inpatient E&M: 81336 Subs Hosp L2
[2024-01-27] MEDS: Insulin Lispro 100 UNIT/ML INSULN.PEN SC ×3 (12:17→21:40)
--- NOTE | 2024-01-27 14:46 | PN.CC_ITS ---
Objective Data Objective Data Vital Signs: Vital Signs Last response 3 Temperature 36.6 C 01/27/24 12:00 Temperature Source Temporal 01/27/24 12:00 Pulse Rate 82 01/27/24 14:00 Pulse Strength Normal (2+) 01/27/24 09:36 Respiratory Rate 20 H 01/27/24 14:00 Respiratory Effort Normal, Non-Labored 01/27/24 12:00 Respiratory Depth Normal 01/27/24 12:00 Respiratory Pattern Normal 01/27/24 12:00 Blood Pressure 118/84 H 01/27/24 14:00 Blood Pressure Mean 95 01/27/24 14:00 Blood Pressure Source Monitor 01/27/24 14:00 Blood Pressure Position Semi-Fowlers 01/27/24 14:00 Blood Pressure Location Left Arm 01/27/24 14:00 Pulse Ox 94 01/27/24 14:00 Oxygen Delivery Method High Flow 01/27/24 14:00 Oxygen Flow Rate (L/min) 6 01/27/24 14:00 Fraction of Inspired Oxygen (FIO2) 40 01/27/24 05:00 EtCo2 (Normal 35-45 , high quality CPR 10-20 & ROSC>/=40mmHg 28 01/24/24 16:39 I&O: I&O Last 24 Hours 3 01/26/24 01/27/24 01/27/24 23:59 11:59 23:59 Output Total 350 / 900 200 / 200 Balance -350 / -700 -200 / -200 I&O: Total Stay 3 01/24/24 15:25 thru 01/27/24 05:05 Intake Total 1726.67 Output Total 2330 Balance -603.33 Current Meds Ordered / Administered: Current meds ordered / Administered 3 Generic Name Dose Route Start Last Admin Trade Name Freq PRN Reason Stop Dose Admin Acetaminophen 650 mg 01/24/24 20:59 01/27/24 04:51 Acetaminophen 325 Mg Tablet PO 650 mg Q4H PRN PRN Administration Fever, pain 1-10/10 Al Hydrox/Mg Hydrox/Simethicone 30 ml 01/24/24 20:59 Mag /Aluminum/Simeth Wch Udc 30 Ml Oral.Susp PO Q6H PRN PRN Gastric Burning Albuterol Sulfate 2.5 mg 01/24/24 20:59 01/26/24 07:31 Albuterol 2.5 Mg/3 Ml Vial.Neb. INHALATION 2.5 mg Q2H PRN PRN Administration Dyspnea, wheezing Albuterol/Ipratropium 3 ml 01/26/24 09:45 01/27/24 12:18 Ipratropium/Albuterol Sulfate 3 Ml Ampul.Neb INHALATION 3 ml Q6HWA.RT DONA Administration Aspirin 81 mg 01/25/24 10:00 01/27/24 08:52 Aspirin E.C. 81 Mg Tablet PO 81 mg DAILY DONA Administration Atorvastatin Calcium 40 mg 01/25/24 22:00 01/26/24 22:15 Atorvastatin Calcium 40 Mg Tablet PO 40 mg QHS DONA Administration Calamine/Phenol 1 applic 01/24/24 22:00 01/27/24 12:14 Menthol/Lanolin/Calamine/Znox 113 Gm Tube TOPICAL 1 dose 4X/DAY DONA Administration Protocol Carvedilol 3.125 mg 01/24/24 22:00 01/27/24 08:53 Carvedilol 3.125 Mg Tablet PO 3.125 mg BID DONA Administration Protocol Clopidogrel Bisulfate 75 mg 01/25/24 10:00 01/27/24 08:53 Clopidogrel Bisulfate 75 Mg Tablet PO 75 mg DAILY DONA Administration Enoxaparin Sodium 40 mg 01/25/24 10:00 01/27/24 08:51 Enoxaparin 40 Mg/0.4 Ml Syringe SC 40 mg DAILY DONA Administration Furosemide 20 mg 01/25/24 10:00 01/27/24 08:54 Furosemide 20 Mg Tablet PO 20 mg DAILY DONA Administration Protocol Gabapentin 100 mg 01/25/24 08:00 01/27/24 12:14 Gabapentin 100 Mg Capsule PO 100 mg TIDCM DONA Administration Glucagon 1 mg 01/24/24 20:59 Glucagon 1 Mg/Ml Syringe IM X1 PRN Hypoglycemia Protocol Guaifenesin 1,200 mg 01/24/24 22:00 01/27/24 08:52 Guaifenesin 1,200 Mg Tablet PO 1,200 mg BID DONA Administration Hydralazine HCl 10 mg 01/24/24 20:59 Hydralazine 20 Mg/Ml Vial IV Q4H PRN PRN SBP > 160 Protocol Dextrose 250 mls @ 0 mls/hr 01/24/24 20:59 01/25/24 02:09 Dextrose 10%-Water IV Infused .Q0M PRN Infusion HYPOGLYCEMIA Protocol As Directed Sodium Chloride 250 mls @ 15 mls/hr 01/24/24 23:38 IV .[id number] PRN Additional IVPB Infusion Sodium Chloride 250 mls @ 15 mls/hr 01/24/24 23:38 IV .[id number] PRN Saline Flush Insulin Human Lispro 0 unit 01/27/24 11:00 01/27/24 12:17 Insulin Lispro 100 Unit/Ml Insuln.Pen SC 3 unit ACHS DONA Administration Protocol Loperamide HCl 2 mg 01/26/24 17:45 01/26/24 18:46 Loperamide 2 Mg Capsule PO 2 mg Q4H PRN PRN Administration DIARRHEA/LOOSE STOOLS Melatonin 3 mg 01/24/24 20:59 Melatonin 3 Mg Tablet PO QHS PRN PRN INSOMNIA Methylprednisolone 40 mg 01/24/24 21:00 01/27/24 12:14 Methylprednisolone 40 Mg/Ml Vial IV 40 mg Q8 DONA Administration Ondansetron HCl 4 mg 01/24/24 20:59 Ondansetron 4 Mg/2 Ml Vial IV Q8H PRN PRN NAUSEA/VOMITING Pantoprazole Sodium 40 mg 01/24/24 22:00 01/27/24 08:52 Pantoprazole Sodium 40 Mg Tablet PO 40 mg BID DONA Administration Prochlorperazine Edisylate 5 mg 01/24/24 20:59 Prochlorperazine 10 Mg/2 Ml Vial IV Q4H PRN PRN Breakthrough Nausea/Vomiting Senna/Docusate Sodium 2 tablet 01/24/24 20:59 Senna/Docusate Sodium 1 Tablet PO BID PRN PRN Constipation Sertraline HCl 100 mg 01/25/24 10:00 01/27/24 08:53 Sertraline 100 Mg Tablet PO 100 mg DAILY DONA Administration Sodium Chloride 10 - 40 ml 01/24/24 23:38 01/27/24 04:50 0.9% Saline Lock 10 Ml Syringe IV 10 ml UD PRN Administration SALINE FLUSH Sodium Chloride 10 - 40 ml 01/25/24 21:17 0.9% Saline Lock 10 Ml Syringe IV UD PRN SALINE FLUSH Tamsulosin HCl 0.4 mg 01/25/24 10:00 01/27/24 08:55 Tamsulosin Hcl 0.4 Mg Capsule PO 0.4 mg DAILY DONA Administration Lab / Micro Data 01/27/24 04:59 01/27/24 04:59 Labs: Laboratory Results - last 24 hr 01/26/24 16:33: POC Glucose 161 H 01/26/24 22:20: POC Glucose 189 H 01/27/24 04:59: WBC 9.9, RBC 4.41 L, Hgb 12.9 L, Hct 40.3, MCV 91.4, MCH 29.3, MCHC 32.0, RDW Std Deviation 56.0 H, RDW Coeff of Audi 16.6 H, Plt Count 141 L, MPV 10.8, Sodium 137, Potassium 4.1, Chloride 103, Carbon Dioxide 27.0, Anion Gap 7, BUN 55 H, Creatinine 1.72 H, Estim Creat Clear Calc 31.89, Est GFR (MDRD) Af Amer 50 L, Est GFR (MDRD) Non-Af 41 L, BUN/Creatinine Ratio 32.0 H, Glucose 221 H, Calcium 8.9 01/27/24 11:26: POC Glucose 287 H Micro: Microbiology 01/26/24 14:00 Stool Clostridioides difficile (PCR) - Final Assessment and Plan . 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, very likely w/ a malignant effusion on the left Await pleural fluid cytology Care planning ongoing PE: General: Well developed, in no distress HEENT: anicteric Sclera, nl nose; supple neck, no masses Cardiovascular: S1/S2; No rubs, gallops; no displaced PM Respiratory: diminished; no crackles, wheezes, or rhonchi Abdominal: Non-tender; Non distended; hypoBS x 4; No Hepatosplenomegaly Extremities: Warm, well perfused; No clubbing, cyanosis; capillary refill < 2 sec Skin: intact, no rashes Neurological: no gross deficits appreciated A/P: #Severe hypoglycemia: resolved #Acute metabolic encephalopathy: 2* to above; improved #Chronic respiratory failure: cont NIV qHS; O2 as needed #COPD: cont nebs/steroids #CHF: no obv vol overload on exam; monitor #CKD +/- JOHN: cont strict I/Os; monitor #DM: see above #Abnormal CT chest: see above; pleural fluid cytology pending The entirety of this encounter was done via Telemedicine
[2024-01-27 17:05] LABS: Bedside Glucose 174 mg/dL (74-106)
--- NOTE | 2024-01-27 21:33 | NURSING ---
PT REFUSING BIPAP AT THIS TIME. PULSE OX 86%. PT EDUCATED ON NEED FOR BIPAP. VERBALIZED UNDERSTANDING AND STILL REFUSING.
[2024-01-27] MEDS: Atorvastatin Calcium 40 MG Tablet PO (21:36)
[2024-01-27 22:58] LABS: Bedside Glucose 174 mg/dL (74-106)
[2024-01-27] MEDS: MELATONIN 3 MG TABLET PO (23:33)
[2024-01-28] VITALS (12 sets, daily range): BP systolic 89–129; BP diastolic 55–67; PULSE 88–96; RESP 12–28; TEMP 36.1–36.3; O2SAT 90–94
[2024-01-28] MEDS: 0.9% Saline Lock 10 ML Syringe IV ×2 (04:46→22:39)
[2024-01-28] MEDS: Ondansetron 4 MG/2 ML Vial IV (04:46)
[2024-01-28] MEDS: Insulin Lispro 100 UNIT/ML INSULN.PEN SC ×3 (06:32→22:36)
[2024-01-28 06:52] LABS: Bedside Glucose 205 mg/dL (74-106)
[2024-01-28] MEDS: Ipratropium/Albuterol Sulfate 3 ML AMPUL.NEB INHALATION ×3 (07:11→19:15)
--- NOTE | 2024-01-28 07:25 | RAD_ITS ---
EXAM: XR CHEST, 1 VIEW CLINICAL INDICATION: WORSENING HYPOXIA TECHNIQUE: Frontal view of the chest. COMPARISON: 01/25/2024. FINDINGS: LUNGS AND PLEURAL SPACES: Persistent dense opacification of the left mid and lower lung with obscured left heart border. Mild patchy opacities in the right lower lobe. No pneumothorax. No effusion. HEART: Unremarkable. Cardiac silhouette not enlarged. MEDIASTINUM: Central airways and mediastinal contour are unremarkable. BONES/JOINTS: Sternal wires. No acute fracture. SOFT TISSUES: Unremarkable. RAD/Chest 1 View (Portable) IMPRESSION: 1. Persistent dense opacification of the left mid and lower lung with obscured left heart border. 2. Mild patchy opacities in the right lower lobe. Electronically Signed: Lokesh Poon MD at 7:57 EDT ,
[2024-01-28] MEDS: Acetaminophen 325 MG Tablet 650 MG PO ×3 (09:05→22:44)
[2024-01-28] MEDS: Gabapentin 100 MG Capsule PO ×3 (09:05→16:01)
[2024-01-28] MEDS: Sertraline 100 MG Tablet PO (09:05)
[2024-01-28] MEDS: Aspirin E.C. 81 MG Tablet PO (09:05)
[2024-01-28] MEDS: Carvedilol 3.125 MG TABLET PO ×2 (09:05→22:36)
[2024-01-28] MEDS: Clopidogrel Bisulfate 75 MG Tablet PO (09:06)
[2024-01-28] MEDS: Tamsulosin HCl 0.4 MG Capsule PO (09:06)
[2024-01-28] MEDS: Pantoprazole Sodium 40 MG Tablet PO ×2 (09:06→22:37)
[2024-01-28] MEDS: Menthol/Lanolin/Calamine/Znox 113 GM Tube 1 APPLIC TOPICAL ×4 (09:11→22:37)
[2024-01-28] MEDS: guaiFENesin 1,200 MG Tablet 1200 MG PO ×2 (09:11→22:36)
[2024-01-28] MEDS: Enoxaparin 40 MG/0.4 ML Syringe SC (09:11)
[2024-01-28] MEDS: Furosemide 20 MG Tablet PO (09:12)
--- NOTE | 2024-01-28 10:21 | PCM.PN.HOSP ---
Reason for Visit Reason for Visit: Diagnoses Type 2 diabetes mellitus with hypoglycemia without coma (01/24/24) Pleural effusion, not elsewhere classified (01/24/24) Acute respiratory failure with hypoxia (01/24/24) Acute respiratory failure with hypercapnia (01/24/24) Transient alteration of awareness (01/24/24) Subjective Subjective Saw patient at bedside this morning. Patient appeared similar today to yesterday, remained quite fatigued and was requiring slightly more oxygen than yesterday but otherwise was breathing comfortably. Did obtain chest x-ray this morning with worsening oxygen requirements to see if left-sided effusion was recurring, and it appeared similar to chest x-ray after thoracentesis with no recurrence of effusion to this point. No other new concerns today. Objective Data Objective Data Vital Signs: Vital Signs Temp Pulse Resp BP Pulse Ox O2 Del Method O2 Flow Rate 97.4 F L 96 25 H 109/55 L 93 Nasal Cannula 10 01/28/24 04:48 01/28/24 07:12 01/28/24 07:12 01/28/24 04:48 01/28/24 07:12 01/28/24 07:12 01/28/24 07:12 FiO2 40 01/27/24 05:00 Oxygen Flow Rate (L/min) 10 Oxygen Delivery Method Nasal Cannula Weight: 61.7 kg Body Mass Index (BMI) 20.0 Intake & Output: Intake and Output for Last 24 Hours 01/26/24 01/27/24 01/28/24 23:59 23:59 23:59 Intake Total 200 / 200 50 / 50 Output Total 900 / 900 500 / 500 Balance -700 / -700 -450 / -450 Lab / Micro Data 01/27/24 04:59 01/27/24 04:59 Labs: Laboratory Results - last 24 hr 01/27/24 11:26: POC Glucose 287 H 01/27/24 16:40: POC Glucose 174 H 01/27/24 21:39: POC Glucose 174 H 01/28/24 06:31: POC Glucose 205 H Micro: Microbiology 01/26/24 14:00 Stool Clostridioides difficile (PCR) - Final Radiography Diagnostic Testing: Radiology Impression Chest X-Ray 01/28/24 07:25 IMPRESSION: 1. Persistent dense opacification of the left mid and lower lung with obscured left heart border. 2. Mild patchy opacities in the right lower lobe. Electronically Signed: Lokesh Poon MD at 7:57 EDT , Physical Exam Const alert, oriented x3, no apparent distress and average body habitus Constitutional Narrative: Elderly male, chronically ill-appearing, moderately fatigued appearing, breathing comfortably on 10 L nasal cannula, answering questions with short appropriate responses, mildly uncomfortable appearing due to ongoing back pain. Stable from yesterday. General Appearance: cooperative HEENT normocephalic, head/scalp atraumatic, hearing grossly normal bilaterally and nasal mucous membranes and turbinates normal Eyes PERRL, EOMs intact bilaterally and conjunctivae normal Neck full ROM Chest inspection of chest normal Resp Resp Narrative: Breathing comfortably on 10 L nasal cannula at rest. Moderately decreased breath sounds throughout left lung specially at the lung base with crackles noted. Mild congestion noted in upper airways and mild wheezing noted. Stable from yesterday. Cardio regular rate, regular rhythm, no murmurs and peripheral pulses 2+ throughout GI normal to inspection, nondistended, normoactive bowel sounds, soft to palpation, non-tender and non-distended Back/Spine normal ROM Extremity normal to inspection Extremity Narrative: +1-2 lower extremity edema bilaterally, stable. Skin no rashes or lesions noted Neuro no focal motor deficits and no sensory deficits noted Speech: speech normal Psych mental status grossly normal Assessment & Plan Assessment/Plan (1) Acute respiratory failure with hypoxia and hypercapnia: (2) Diabetic hypoglycemia: (3) Episode of unresponsiveness: PLAN: Plan Patient is a 78-year-old male who presented [facility] ED on 01/24/2024 with altered mental status and hypoglycemia. 1. Acute on chronic hypoxic respiratory failure, persistent left lung opacity with concern for active lung cancer, left-sided pleural effusion ? Geodetic Surveyor Technologist following. On 5 to 6 L nasal cannula on recent discharge. Requiring BiPAP on admission to maintain good oxygen saturations. Chest x-ray on 01/24 showed worsening opacification of left mid to lower lung with probable enlarging left pleural effusion. S/p thoracentesis done by radiology on 01/24 with 880 mL clear red-colored fluid drained. Postthoracentesis chest x-ray still with significant left lung opacity. Per tele-speed reading teacher, strongly suspect a locally advanced bronchogenic carcinoma. Pleural fluid studies monocytic predominant. Cytology remains pending and will not be available until 01/28 at the earliest. Had lengthy discussions with patient and family on 01/24, see separate notes for details. Planning for hospice discussion tomorrow with patient's daughter Sara is able to come to the hospital to participate. 2. Hypoglycemia, history of type 2 diabetes mellitus with neuropathy ? Suspect hypoglycemia may have been due to overmedication with insulin at [facility]. Mild elevated LFTs on admission but bilirubin normal, low concern for liver disease contributing to hypoglycemia. Improved by evening of 01/24 after treatment with D5. Blood sugars improved and sliding-scale insulin added back on with meals on 01/26. Okay for regular diet at this point. 3. Acute metabolic encephalopathy, improved ? Presumed secondary to hypoglycemia as noted above with mild worsening respiratory status possibly playing a role. Mentation back to baseline on 01/24. Avoid deliriogenic medications as able. 4. 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 Most recent echo on 12/30 showed EF 20 to 25%, severe generalized LV systolic dysfunction, moderately severe global RV systolic dysfunction. Continue home Lasix and Coreg. Holding home lisinopril given borderline blood pressures for now. 5. Acute on chronic debility ? PT/OT/case management following. Further plans on discharge to be determined. Chronic medical conditions: ? History of CAD s/p stenting, hypertension, hyperlipidemia: Continue home Coreg and Lasix, holding home lisinopril as above. Continue home statin. Continue home aspirin and Plavix. ? GERD: Continue home PPI. ? Depression: Continue home sertraline. ? BPH with obstructive symptoms: Continue home Flomax. DVT prophylaxis: Lovenox CODE STATUS: DNR CCA, DNI Expected disposition: TBD Total clinical time spent by myself addressing the patient's medical issues, reviewing all the data, and collaborating with patient's care team: 35 minutes. Charges/Coding Visit Charges Inpatient E&M: 99447 Subs Hosp L2
--- NOTE | 2024-01-28 11:36 | PN.CC_ITS ---
Objective Data Objective Data Vital Signs: Vital Signs Last response 3 Temperature 36.3 C L 01/28/24 06:00 Temperature Source Temporal 01/28/24 06:00 Pulse Rate 96 01/28/24 07:12 Pulse Strength Normal (2+) 01/28/24 10:00 Respiratory Rate 25 H 01/28/24 07:12 Respiratory Effort Normal, Non-Labored 01/28/24 10:00 Respiratory Depth Normal 01/28/24 10:00 Respiratory Pattern Normal 01/28/24 10:00 Blood Pressure 122/62 H 01/28/24 06:00 Blood Pressure Mean 82 01/28/24 06:00 Blood Pressure Source Monitor 01/28/24 06:00 Blood Pressure Position Semi-Fowlers 01/28/24 06:00 Blood Pressure Location Left Arm 01/28/24 06:00 Pulse Ox 93 01/28/24 07:12 Oxygen Delivery Method High Flow 01/28/24 10:00 Oxygen Flow Rate (L/min) 10 01/28/24 10:00 Fraction of Inspired Oxygen (FIO2) 40 01/27/24 05:00 EtCo2 (Normal 35-45 , high quality CPR 10-20 & ROSC>/=40mmHg 28 01/24/24 16:39 I&O: I&O Last 24 Hours 3 01/27/24 01/27/24 01/28/24 11:59 23:59 11:59 Intake Total 50 / 50 Output Total 200 / 500 300 / 500 Balance -200 / -450 -250 / -450 I&O: Total Stay 3 01/24/24 15:25 thru 01/27/24 20:00 Intake Total 1776.67 Output Total 2630 Balance -853.33 Current Meds Ordered / Administered: Current meds ordered / Administered 3 Generic Name Dose Route Start Last Admin Trade Name Freq PRN Reason Stop Dose Admin Acetaminophen 650 mg 01/24/24 20:59 01/28/24 09:05 Acetaminophen 325 Mg Tablet PO 650 mg Q4H PRN PRN Administration Fever, pain 1-10/10 Al Hydrox/Mg Hydrox/Simethicone 30 ml 01/24/24 20:59 Mag /Aluminum/Simeth Wch Udc 30 Ml Oral.Susp PO Q6H PRN PRN Gastric Burning Albuterol Sulfate 2.5 mg 01/24/24 20:59 01/26/24 07:31 Albuterol 2.5 Mg/3 Ml Vial.Neb. INHALATION 2.5 mg Q2H PRN PRN Administration Dyspnea, wheezing Albuterol/Ipratropium 3 ml 01/26/24 09:45 01/28/24 07:11 Ipratropium/Albuterol Sulfate 3 Ml Ampul.Neb INHALATION 3 ml Q6HWA.RT DONA Administration Aspirin 81 mg 01/25/24 10:00 01/28/24 09:05 Aspirin E.C. 81 Mg Tablet PO 81 mg DAILY DONA Administration Atorvastatin Calcium 40 mg 01/25/24 22:00 01/27/24 21:36 Atorvastatin Calcium 40 Mg Tablet PO 40 mg QHS DONA Administration Calamine/Phenol 1 applic 01/24/24 22:00 01/28/24 09:11 Menthol/Lanolin/Calamine/Znox 113 Gm Tube TOPICAL 1 dose 4X/DAY DONA Administration Protocol Carvedilol 3.125 mg 01/24/24 22:00 01/28/24 09:05 Carvedilol 3.125 Mg Tablet PO 3.125 mg BID DONA Administration Protocol Clopidogrel Bisulfate 75 mg 01/25/24 10:00 01/28/24 09:06 Clopidogrel Bisulfate 75 Mg Tablet PO 75 mg DAILY DONA Administration Enoxaparin Sodium 40 mg 01/25/24 10:00 01/28/24 09:11 Enoxaparin 40 Mg/0.4 Ml Syringe SC 40 mg DAILY DONA Administration Furosemide 20 mg 01/25/24 10:00 01/28/24 09:12 Furosemide 20 Mg Tablet PO 20 mg DAILY DONA Administration Protocol Gabapentin 100 mg 01/25/24 08:00 01/28/24 09:05 Gabapentin 100 Mg Capsule PO 100 mg TIDCM DONA Administration Glucagon 1 mg 01/24/24 20:59 Glucagon 1 Mg/Ml Syringe IM X1 PRN Hypoglycemia Protocol Guaifenesin 1,200 mg 01/24/24 22:00 01/28/24 09:11 Guaifenesin 1,200 Mg Tablet PO 1,200 mg BID DONA Administration Hydralazine HCl 10 mg 01/24/24 20:59 Hydralazine 20 Mg/Ml Vial IV Q4H PRN PRN SBP > 160 Protocol Dextrose 250 mls @ 0 mls/hr 01/24/24 20:59 01/25/24 02:09 Dextrose 10%-Water IV Infused .Q0M PRN Infusion HYPOGLYCEMIA Protocol As Directed Sodium Chloride 250 mls @ 15 mls/hr 01/24/24 23:38 IV .[id number] PRN Additional IVPB Infusion Sodium Chloride 250 mls @ 15 mls/hr 01/24/24 23:38 IV .[id number] PRN Saline Flush Insulin Human Lispro 0 unit 01/27/24 11:00 01/28/24 06:32 Insulin Lispro 100 Unit/Ml Insuln.Pen SC 2 unit ACHS DONA Administration Protocol Loperamide HCl 2 mg 01/26/24 17:45 01/26/24 18:46 Loperamide 2 Mg Capsule PO 2 mg Q4H PRN PRN Administration DIARRHEA/LOOSE STOOLS Melatonin 3 mg 01/24/24 20:59 01/27/24 23:33 Melatonin 3 Mg Tablet PO 3 mg QHS PRN PRN Administration INSOMNIA Methylprednisolone 40 mg 01/24/24 21:00 01/28/24 06:22 Methylprednisolone 40 Mg/Ml Vial IV 40 mg Q8 DONA Administration Ondansetron HCl 4 mg 01/24/24 20:59 01/28/24 04:46 Ondansetron 4 Mg/2 Ml Vial IV 4 mg Q8H PRN PRN Administration NAUSEA/VOMITING Pantoprazole Sodium 40 mg 01/24/24 22:00 01/28/24 09:06 Pantoprazole Sodium 40 Mg Tablet PO 40 mg BID DONA Administration Prochlorperazine Edisylate 5 mg 01/24/24 20:59 Prochlorperazine 10 Mg/2 Ml Vial IV Q4H PRN PRN Breakthrough Nausea/Vomiting Senna/Docusate Sodium 2 tablet 01/24/24 20:59 Senna/Docusate Sodium 1 Tablet PO BID PRN PRN Constipation Sertraline HCl 100 mg 01/25/24 10:00 01/28/24 09:05 Sertraline 100 Mg Tablet PO 100 mg DAILY DONA Administration Sodium Chloride 10 - 40 ml 01/24/24 23:38 01/28/24 04:46 0.9% Saline Lock 10 Ml Syringe IV 10 ml UD PRN Administration SALINE FLUSH Sodium Chloride 10 - 40 ml 01/25/24 21:17 0.9% Saline Lock 10 Ml Syringe IV UD PRN SALINE FLUSH Tamsulosin HCl 0.4 mg 01/25/24 10:00 01/28/24 09:06 Tamsulosin Hcl 0.4 Mg Capsule PO 0.4 mg DAILY DONA Administration Lab / Micro Data 01/27/24 04:59 01/27/24 04:59 Labs: Laboratory Results - last 24 hr 01/27/24 11:26: POC Glucose 287 H 01/27/24 16:40: POC Glucose 174 H 01/27/24 21:39: POC Glucose 174 H 01/28/24 06:31: POC Glucose 205 H Imaging Radiology Impression Chest X-Ray 01/28/24 07:25 IMPRESSION: 1. Persistent dense opacification of the left mid and lower lung with obscured left heart border. 2. Mild patchy opacities in the right lower lobe. Electronically Signed: Lokesh Poon MD at 7:57 EDT , Assessment and Plan . 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, very likely w/ a malignant effusion on the left Await pleural fluid cytology Care planning ongoing PE: General: Well developed, in no distress - appears chronically ill and fatigued HEENT: anicteric Sclera, nl nose; supple neck, no masses Cardiovascular: S1/S2; No rubs, gallops; no displaced PM Respiratory: diminished; no crackles, wheezes, or rhonchi Abdominal: Non-tender; Non distended; hypoBS x 4; No Hepatosplenomegaly Extremities: Warm, well perfused; No clubbing, cyanosis; capillary refill < 2 sec Skin: intact, no rashes Neurological: no gross deficits appreciated A/P: #Severe hypoglycemia: resolved #Acute metabolic encephalopathy: 2* to above; improved #Chronic respiratory failure: cont NIV qHS; O2 as needed #COPD: cont nebs/steroids #CHF: no obv vol overload on exam; monitor #CKD +/- JOHN: cont strict I/Os; monitor #DM: see above #Abnormal CT chest: see above; pleural fluid cytology pending The entirety of this encounter was done via Telemedicine
[2024-01-28 16:20] LABS: Bedside Glucose 176 mg/dL (74-106)
[2024-01-28] MEDS: Atorvastatin Calcium 40 MG Tablet PO (22:37)
[2024-01-28] MEDS: MELATONIN 3 MG TABLET PO (22:44)
[2024-01-28 23:00] LABS: Bedside Glucose 191 mg/dL (74-106)
--- NOTE | 2024-01-28 23:16 | NURSING ---
2029- pt placed on bipap d/t SpO2 dropping into 70's after ambulating from chair to bed. FiO2 requirements increased from 40% to 65% 2199- pt requesting bipap off. Pt placed on his baseline 6L, ineffective. Pt now on 15L high flow. Pt tachypneic and lungs dim/ rhonchi but refusing further bipap. Pt alert and oriented x3, lethargic
[2024-01-29] VITALS (27 sets, daily range): BP systolic 88–129; BP diastolic 39–69; PULSE 80–97; RESP 12–32; TEMP 36–36.3; O2SAT 82–100; BMI 19.4
--- NOTE | 2024-01-29 00:03 | PCM.HOSP.N ---
Hospitalist Note Patient with ongoing elevated oxygen requirements. Refusing his BIPAP. Patient DNR-CCA, no intubation.
[2024-01-29] MEDS: 0.9% Saline Lock 10 ML Syringe IV ×2 (06:27→21:35)
[2024-01-29] MEDS: Ipratropium/Albuterol Sulfate 3 ML AMPUL.NEB INHALATION ×3 (07:36→19:13)
--- NOTE | 2024-01-29 07:46 | PCM.PN.HOSP ---
Reason for Visit Reason for Visit: Diagnoses Type 2 diabetes mellitus with hypoglycemia without coma (01/24/24) Pleural effusion, not elsewhere classified (01/24/24) Acute respiratory failure with hypoxia (01/24/24) Acute respiratory failure with hypercapnia (01/24/24) Transient alteration of awareness (01/24/24) Subjective Subjective Had been taking the BiPAP as not tolerating that. Objective Data Objective Data Vital Signs: Vital Signs Temp Pulse Resp BP Pulse Ox O2 Del Method O2 Flow Rate 36.2 C L 80 17 103/59 L 93 Bi-pap 15 01/29/24 06:00 01/29/24 06:00 01/29/24 06:00 01/29/24 06:00 01/29/24 06:00 01/29/24 06:00 01/29/24 04:15 FiO2 65 01/29/24 06:00 Oxygen Flow Rate (L/min) 15 Oxygen Delivery Method Bi-pap Weight: 59.8 kg Body Mass Index (BMI) 19.4 Intake & Output: Intake and Output for Last 24 Hours 01/27/24 01/28/24 01/29/24 23:59 23:59 23:59 Intake Total 50 / 50 Output Total 500 / 500 150 / 150 0 / 0 Balance -450 / -450 -150 / -150 0 / 0 Medical Nutrition Assessment Dietitian: Malnutrition Criteria Met Start: 01/28/24 14:30 Freq: Status: Active Protocol: Document 01/28/24 14:30 RMA (Rec: 01/28/24 14:31 RMA [id number]) Nutrition Malnutrition Evidence of Malnutrition Exists Yes Malnutrition (severe): Chronic Evidenced By Suboptimal Energy Intake ( Severe),Weight Loss (Severe), Physical Changes (Moderate) Clinical Problem Chronic Disease or Condition Related Malnutrition Etiology severe protein-calorie malnutrition in the context of chronic disease related to inadequate oral intake Signs/Symptoms as evidenced by PO meeting less than 50% estimated nutrition needs and ~8% unintentional weight loss x 1 month Status Active Problem Recommendation Dietitian Recommendations/Changes Will continue liberalized regular diet due to signs/ symptoms of malnutrition; restrict carbohydrates as needed. Will add 120mL ensure plus HP 4 times per day w/ medpass as tolerated. Will add fortified pudding w/ lunch and dinner. Lab / Micro Data 01/27/24 04:59 01/27/24 04:59 Labs: Laboratory Results - last 24 hr 01/28/24 16:00: POC Glucose 176 H 01/28/24 22:31: POC Glucose 191 H Micro: Microbiology 01/26/24 14:00 Stool Clostridioides difficile (PCR) - Final Radiography Diagnostic Testing: Radiology Impression Chest X-Ray 01/28/24 07:25 IMPRESSION: 1. Persistent dense opacification of the left mid and lower lung with obscured left heart border. 2. Mild patchy opacities in the right lower lobe. Electronically Signed: Lokesh Poon MD at 7:57 EDT , Physical Exam Const alert and no apparent distress Constitutional Narrative: Seen earlier in the morning and the patient was on a BiPAP and was listless. Would doze off during the encounter. Came back with the family and he was on nasal cannula with pulse ox in the low 80s and was still listless. HEENT head/scalp atraumatic and moist oral mucous membranes Resp normal respiratory effort and no retractions Resp Narrative: Coarse breath sounds Cardio regular rate, regular rhythm, S1 normal heart sound and S2 normal heart sound GI normal to inspection, nondistended, normoactive bowel sounds, soft to palpation, non-tender, non-distended and hepatosplenomegaly Extremity normal to inspection Assessment & Plan Assessment/Plan (1) Acute respiratory failure with hypoxia and hypercapnia: (2) Diabetic hypoglycemia: (3) Episode of unresponsiveness: PLAN: Plan Acute on chronic hypoxic respiratory failure 2/2 lung mass and pleural effusion. Pt has been declining BiPAP. Discussed with the family and they want to continue with aggressive medical care then he really needs to be on the BiPAP to help with ventilation. Exudative Pleural effusion thoracentesis on the . Concern for malignant effusion given the lung mass. Cytology pending. Hypoglycemia resolved Acute metabolic encephalopathy 2/2 hypoglycemia. Acute on chronic debility PT/OT/case management following. Further plans on discharge to be determined. 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 Most recent echo on 12/30 showed EF 20 to 25%, severe generalized LV systolic dysfunction, moderately severe global RV systolic dysfunction. Continue home Lasix and Coreg. Holding home lisinopril given borderline blood pressures for now History of CAD s/p stenting, hypertension, hyperlipidemia: Continue home Coreg and Lasix, holding home lisinopril as above. Continue home statin. Continue home aspirin and Plavix. GERD: Continue home PPI. Depression: Continue home sertraline. BPH with obstructive symptoms: Continue home Flomax. VTE prophylaxis: enoxaparin CODE STATUS: DNR CCA, DNI Expected disposition: TBD Advance care planning: Spent an additional 20 minutes where I met with the various family members and the woman who is there states that the patient wanted to continue with medical care. But was wondering about hospice. Informed her and the rest of the family that the patient proceed with hospice and we would not proceed with additional testing but the focus would then be on make sure that he is comfortable and his remaining time. I did reiterate to her that it has been expressed, though not to me, that the patient may be interested in hospice. I encouraged this woman as well as other family numbers to listen to the patient about what he wants and proceeding accordingly. If he wants aggressive medical care then he would need to be put back on the BiPAP (he was actually nasal cannula with pulse ox in the 80s). There was not a definitive answer during this encounter but encouraged them to talk further. Patient had subsequent been placed back on BiPAP. Charges/Coding Visit Charges Inpatient E&M: 56195 Subs Hosp L2 Procedures Hospitalists Procedures: 77251 Critical Care Addl 30 Min
--- NOTE | 2024-01-29 10:26 | NURSING ---
Pt pulled off bipap several times throughout the morning, appearing uncomfortable and anxious. Left on nasal cannula 15L at this time for comfort.
[2024-01-29] MEDS: Menthol/Lanolin/Calamine/Znox 113 GM Tube 1 APPLIC TOPICAL ×3 (10:47→21:35)
[2024-01-29] MEDS: Enoxaparin 40 MG/0.4 ML Syringe SC (10:48)
--- NOTE | 2024-01-29 10:53 | NURSING ---
Called and spoke w/ daughter Sara. She is planning on coming to discuss goals of care around 1300. Will notify Dr. Redd. Also made aware that it is getting more difficult to meet pt's oxygen needs, he is mostly on the bipap this morning, increasingly agitated. She voices understanding.
[2024-01-29 11:25] LABS: Pathologist Comment/Body Fluid Reviewed
[2024-01-29 18:23] LABS: Bedside Glucose 163 mg/dL (74-106)
[2024-01-29] MEDS: Insulin Lispro 100 UNIT/ML INSULN.PEN SC (21:34)
[2024-01-29 22:07] LABS: Bedside Glucose 155 mg/dL (74-106)
[2024-01-30] VITALS (19 sets, daily range): BP systolic 58–110; BP diastolic 40–77; PULSE 93–103; RESP 12–37; TEMP 35.9–36.2; O2SAT 88–97; BMI 19.8
[2024-01-30 04:32] LABS: Absolute Lymphocyte Count 0.26 X10^3/uL (0.83-4.51); Absolute Neutrophil Count 16.1 X10^3/uL (2.0-7.7); Basophil# 0.04 X10^3/uL; Basophil% 0.2 % (0-1); Hematocrit 42.7 % (40-54); Lymphocyte # 0.26 X10^3/ul (0.83-4.51); Lymphocyte % 1.5 % (19-41); Mean Corp Hgb Conc 30.4 g/dL (32-36); Mean Corpuscular Hgb 28.8 pg (27.0-32.0); Mean Corpuscular Volume 94.7 fL (80-94); Mean Platelet Vol. 11.4 fl (6.2-12.0); Monocyte# 0.67 X10^3/uL; Monocyte% 3.9 % (0-10); NRBC Flagged by Analyzer 0.2 % (0-5); Neutrophil # 16.07 X10^3/uL (2.7-7.7); Neutrophil % 93.6 % (47-70); POSITIVE DIFFERENTIAL YES; Platelet Count 198 K/mm3 (150-450); RBC Distribution Width SD 59.6 fl (35.1-43.9); Red Blood Count 4.51 M/mm3 (4.6-6.2); White Blood Count 17.2 K/mm3 (4.4-11.0)
[2024-01-30 04:50] LABS: Anion Gap 9 (5-15); BUN 102 mg/dL (7-18); BUN/Creat Ratio 30.8 RATIO (10-20); Calcium,Total 8.6 mg/dL (8.5-10.1); Chloride 101 mmol/L (98-107); Creatinine, Serum 3.31 mg/dL (0.70-1.30); EST Glomerular Filtration Rate 19 mL/min (>60); Est Glom Filt Rate - Afr Amer 23 mL/min (>60); Estimated Creatinine Clearance 16.27 ml/min; Glucose 181 mg/dL (74-106); Potassium 5.9 mmol/L (3.5-5.1); Sodium Level 135 mmol/L (136-145)
[2024-01-30] MEDS: 0.9% Saline Lock 10 ML Syringe IV (06:48)
--- NOTE | 2024-01-30 06:52 | PN.CC_ITS ---
Assessment & Plan Assessment/Plan (1) Acute respiratory failure with hypoxia and hypercapnia: PLAN: Plan RECOMMENDATIONS: 1. Transition to AVAPS therapy and obtain follow-up ABG. 2. Given the patient's family decision to transition to comfort care, will update CODE STATUS and place orders for comfort medications. If the patient survives over the next 24 hours, will consider transfer to inpatient hospice care services. IMPRESSIONS: 1. Acute on chronic combined respiratory failure Most likely multifactorial in etiology. The patient likely has underlying COPD which is suboptimally treated along with chronic CO2 retention and clinical concern for underlying malignancy. In addition, the patient had a sizable pleural effusion, for which she underwent thoracentesis, for which pleural fluid cytology is pending. The patient has required frequent hospitalizations recently and continues to worsen from a clinical perspective. Given this, I met with the patient's family this morning regarding goals of care. They have elected to transition the patient to DNR comfort care. Comfort medications will be administered accordingly. 2. History of tobacco dependency/coronary artery disease/heart failure with reduced ejection fraction/chronic kidney disease/diabetes mellitus/history of esophageal stenosis Complicates care, management, recovery and prognosis. Continue current supportive care as noted above. UPDATE: I personally met with the patient's family this morning and engaged in the lengthy discussion regarding goals of care. I explained to them that the patient now has evidence of acute kidney injury and uremia along with CO2 retention despite the use of PAP therapy. Given these findings, the patient's family is electing to transition him to comfort care measures. I explained to them that if the patient survives over the next 24 hours that we can consider transfer to inpatient hospice tomorrow. CODE status: Discussed CODE status at length including difference between FULL code, DNR-CCA and DNR-CC status. Following discussions about the differences in these status, patient's family requested DNR CC CODE STATUS. Advanced Care Planning Face to Face Time: 20 minutes This note was generated with Virtual[employer] dictation software. It may contain incorrect words, spelling, and punctuation that were not noted in checking the note before signing. Subjective Subjective The patient was seen and examined at the bedside this morning. Events from the last 24 hours have been reviewed. The patient remains largely BiPAP dependent with an FiO2 requirement of 85%. According to nursing staff, there are tentative plans for a hospice meeting this evening at 5 PM. White blood cell count is elevated at 17,000. Potassium is elevated at 5.9 with a BUN of 102 and creatinine of 3.31. The patient is currently nonresponsive on BiPAP therapy. The patient's family was updated on his current clinical status. It was recommended that they present to the hospital to engage in a goals of care discussion this morning. Objective Data Objective Data The patient's most recent lab work, culture data and imaging studies have all been personally reviewed. Pleural fluid cytology results are pending. Vital Signs: Vital Signs Temp Pulse Resp BP Pulse Ox O2 Del Method O2 Flow Rate 97.1 F L 102 H 21 H 103/58 L 94 Bi-pap 15 01/30/24 06:00 01/30/24 06:00 01/30/24 06:00 01/30/24 06:00 01/30/24 06:00 01/30/24 06:00 01/29/24 14:00 FiO2 85 01/30/24 06:00 Oxygen Flow Rate (L/min) 15 Oxygen Delivery Method Bi-pap Weight: 133 lb 9.602 oz Body Mass Index (BMI) 19.8 Intake & Output: Intake and Output for Last 24 Hours 01/28/24 01/29/24 01/30/24 23:59 23:59 23:59 Intake Total 300 / 300 Output Total 150 / 150 50 / 50 0 / 0 Balance -150 / -150 250 / 250 0 / 0 Medical Nutrition Assessment Dietitian: Malnutrition Criteria Met Start: 01/28/24 14:30 Freq: Status: Active Protocol: Document 01/29/24 09:57 STONEY (Rec: 01/29/24 09:57 STONEY [id number]) Nutrition Malnutrition Evidence of Malnutrition Exists Yes Malnutrition (severe): Chronic Evidenced By Suboptimal Energy Intake ( Severe),Weight Loss (Severe), Physical Changes (Moderate) Clinical Problem Chronic Disease or Condition Related Malnutrition Etiology severe protein-calorie malnutrition in the context of chronic disease related to inadequate oral intake Signs/Symptoms as evidenced by PO meeting less than 50% estimated nutrition needs and ~10.8% unintentional weight loss x 1 month Status Active Problem Recommendation Dietitian Recommendations/Changes Will continue liberalized regular diet due to signs/ symptoms of malnutrition; restrict carbohydrates as needed. Will continue 120mL ensure plus HP 4 times per day w/ medpass as tolerated. Will continue fortified pudding w/ lunch and dinner. Rec consider appetite stimulant if appropriate to help encourage increased po intake. Lab / Micro Data Attestation: I reviewed the patient's lab results. 01/30/24 04:20 01/30/24 04:20 Labs: Laboratory Results - last 24 hr 01/25/24 14:44: Fl Pathologist Comment Reviewed 01/29/24 15:45: POC Glucose 163 H 01/29/24 21:33: POC Glucose 155 H 01/30/24 04:20: WBC 17.2 H, RBC 4.51 L, Hgb 13.0, Hct 42.7, MCV 94.7 H, MCH 28.8, MCHC 30.4 L, RDW Std Deviation 59.6 H, RDW Coeff of Audi 17.0 H, Plt Count 198, MPV 11.4, Immature Gran % (Auto) 0.800, Neut % (Auto) 93.6 H, Lymph % (Auto) 1.5 L, [place] % (Auto) 3.9, Eos % (Auto) 0.0, Baso % (Auto) 0.2, Absolute Neuts (auto) 16.1 H, Absolute Lymphs (auto) 0.26 L, Nucleated RBC % 0.2, Sodium 135 L, Potassium 5.9 H, Chloride 101, Carbon Dioxide 25.0, Anion Gap 9, BUN 102 H*, Creatinine 3.31 H, Estim Creat Clear Calc 16.27, Est GFR (MDRD) Af Amer 23 L , Est GFR (MDRD) Non-Af 19 L, BUN/Creatinine Ratio 30.8 H, Glucose 181 H, Calcium 8.6 Micro: Microbiology 01/26/24 14:00 Stool Clostridioides difficile (PCR) - Final Physical Exam Const Constitutional Narrative: The patient is unarousable on BiPAP at the present time. General Appearance: lethargic HEENT normocephalic and head/scalp atraumatic Eyes PERRL, EOMs intact bilaterally and conjunctivae normal Neck supple General: trachea midline Chest inspection of chest normal Resp Auscultation: diminished lung sounds; Negative for rales, rhonchi or wheezes Cardio regular rate and regular rhythm GI normal to inspection, nondistended, normoactive bowel sounds Extremity General Extremity: edema; Negative for clubbing Skin no rashes or lesions noted Neuro Neuro Narrative: Currently nonresponsive to verbal and tactile stimulation. Charges/Coding Visit Charges Inpatient E&M: 66588 Subs Hosp L3 Procedures Hospitalists Procedures: 44327 Advncd Care Plan 30 Min
--- NOTE | 2024-01-30 07:11 | PN.HOSP_ITS ---
Reason for Visit Reason for Visit: Diagnoses Type 2 diabetes mellitus with hypoglycemia without coma (01/24/24) Pleural effusion, not elsewhere classified (01/24/24) Acute respiratory failure with hypoxia (01/24/24) Acute respiratory failure with hypercapnia (01/24/24) Transient alteration of awareness (01/24/24) Subjective Subjective Decreased responsiveness overnight. Family notified. Objective Data Objective Data Vital Signs: Vital Signs Temp Pulse Resp BP Pulse Ox O2 Del Method O2 Flow Rate 36.1 C L 101 H 27 H 92/43 L 97 Bi-pap 15 01/30/24 07:00 01/30/24 07:00 01/30/24 07:00 01/30/24 07:00 01/30/24 07:00 01/30/24 07:00 01/29/24 14:00 FiO2 85 01/30/24 07:00 Oxygen Flow Rate (L/min) 15 Oxygen Delivery Method Bi-pap Weight: 60.6 kg Body Mass Index (BMI) 19.8 Intake & Output: Intake and Output for Last 24 Hours 01/28/24 01/29/24 01/30/24 23:59 23:59 23:59 Intake Total 300 / 300 Output Total 150 / 150 50 / 50 0 / 0 Balance -150 / -150 250 / 250 0 / 0 Medical Nutrition Assessment Dietitian: Malnutrition Criteria Met Start: 01/28/24 14:30 Freq: Status: Active Protocol: Document 01/29/24 09:57 STONEY (Rec: 01/29/24 09:57 STONEY [id number]) Nutrition Malnutrition Evidence of Malnutrition Exists Yes Malnutrition (severe): Chronic Evidenced By Suboptimal Energy Intake ( Severe),Weight Loss (Severe), Physical Changes (Moderate) Clinical Problem Chronic Disease or Condition Related Malnutrition Etiology severe protein-calorie malnutrition in the context of chronic disease related to inadequate oral intake Signs/Symptoms as evidenced by PO meeting less than 50% estimated nutrition needs and ~10.8% unintentional weight loss x 1 month Status Active Problem Recommendation Dietitian Recommendations/Changes Will continue liberalized regular diet due to signs/ symptoms of malnutrition; restrict carbohydrates as needed. Will continue 120mL ensure plus HP 4 times per day w/ medpass as tolerated. Will continue fortified pudding w/ lunch and dinner. Rec consider appetite stimulant if appropriate to help encourage increased po intake. Lab / Micro Data 01/30/24 04:20 01/30/24 04:20 Labs: Laboratory Results - last 24 hr 01/25/24 14:44: Fl Pathologist Comment Reviewed 01/29/24 15:45: POC Glucose 163 H 01/29/24 21:33: POC Glucose 155 H 01/30/24 04:20: WBC 17.2 H, RBC 4.51 L, Hgb 13.0, Hct 42.7, MCV 94.7 H, MCH 28.8, MCHC 30.4 L, RDW Std Deviation 59.6 H, RDW Coeff of Audi 17.0 H, Plt Count 198, MPV 11.4, Immature Gran % (Auto) 0.800, Neut % (Auto) 93.6 H, Lymph % (Auto) 1.5 L, Snyder % (Auto) 3.9, Eos % (Auto) 0.0, Baso % (Auto) 0.2, Absolute Neuts (auto) 16.1 H, Absolute Lymphs (auto) 0.26 L, Nucleated RBC % 0.2, Sodium 135 L, Potassium 5.9 H, Chloride 101, Carbon Dioxide 25.0, Anion Gap 9, BUN 102 H*, Creatinine 3.31 H, Estim Creat Clear Calc 16.27, Est GFR (MDRD) Af Amer 23 L , Est GFR (MDRD) Non-Af 19 L, BUN/Creatinine Ratio 30.8 H, Glucose 181 H, Calcium 8.6 Micro: Microbiology 01/26/24 14:00 Stool Clostridioides difficile (PCR) - Final Physical Exam Const Constitutional Narrative: on BiPAP. Family at bedside. Assessment & Plan Assessment/Plan (1) Acute respiratory failure with hypoxia and hypercapnia: (2) Diabetic hypoglycemia: (3) Episode of unresponsiveness: PLAN: Plan Acute on chronic hypoxic respiratory failure * 2/2 lung mass and pleural effusion. * Maintaining sats on BiPAP. Exudative Pleural effusion * thoracentesis on the . Concern for malignant effusion given the lung mass. Cytology pending. Hypoglycemia * resolved Acute metabolic encephalopathy * 2/2 hypoglycemia. Acute on chronic debility * PT/OT/case management following. Further plans on discharge to be determined. 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 Most recent echo on 12/30 showed EF 20 to 25%, severe generalized LV systolic dysfunction, moderately severe global RV systolic dysfunction. Continue home Lasix and Coreg. Holding home lisinopril given borderline blood pressures for now * History of CAD s/p stenting, hypertension, hyperlipidemia: Continue home Coreg and Lasix, holding home lisinopril as above. Continue home statin. Continue home aspirin and Plavix. * GERD: Continue home PPI. * Depression: Continue home sertraline. * BPH with obstructive symptoms: Continue home Flomax. VTE prophylaxis: enoxaparin CODE STATUS: DNR CCA, DNI Expected disposition: TBD 01/28: Spent an additional 20 minutes where I met with the various family members and the woman who is there states that the patient wanted to continue with medical care. But was wondering about hospice. Informed her and the rest of the family that the patient proceed with hospice and we would not proceed with additional testing but the focus would then be on make sure that he is comfortable and his remaining time. I did reiterate to her that it has been expressed, though not to me, that the patient may be interested in hospice. I encouraged this woman as well as other family numbers to listen to the patient about what he wants and proceeding accordingly. If he wants aggressive medical care then he would need to be put back on the BiPAP (he was actually nasal cannula with pulse ox in the 80s). There was not a definitive answer during this encounter but encouraged them to talk further. Patient had subsequent been placed back on BiPAP. Later in the day, patient wanted to speak with Hospice. Hospice to see 01/29. 01/29: worsening condition. Family at bedside. Charges/Coding Visit Charges Inpatient E&M: 51519 Subs Hosp L1
[2024-01-30] MEDS: Ipratropium/Albuterol Sulfate 3 ML AMPUL.NEB INHALATION ×2 (07:14→13:34)
[2024-01-30 07:45] LABS: Allen Test Positive; Base Excess -6 mmol/L (-2 to +2); Blood Gas Specimen Type ART; Comment 18/10; Mode ST; O2 Delivery Device BiPAP; PEEP 10; PO2 107 mmHG (75-100); RR 12; SITE L Radial; SO2 95 % (95-99); Total Carbon Dioxide 27 mmol/L; pCO2 83.1 mmHg (35-45); pH 7.07 (7.35-7.45)
--- NOTE | 2024-01-30 13:12 | CASEMGMT ---
Social Work SW informed by RN that hospice is to be here at 5pm. SW spoke w/pt's family in room, offered support. SW remains available for support as needed. PARADISE Ramos
--- NOTE | 2024-01-30 13:25 | CHAPLAIN ---
Type of Pastoral Visit _x__ Initial Visit ___ Follow-up Visit ___ On-call Visit ___ General Patient Visit ___ Spiritual Assessment ___ Family Conference ___ Bereavement ___ Rapid Response ___ Code Blue ___ Other (describe below) Pastoral Care Referral From ___ Patient _x__ Family _x__ Nurse ___ Physician ___ Tail Worker ___ Paint Dipper ___ Other (describe below) Sacrament/Intervention _x__ Active listening ___ Anointing ___ Restorationism _x__ Bereavement ___ Communion ___ Soha exploration ___ _x__ Life review _x__ Prayer ___ Reconciliation ___ Sacrament of Sick _x__ Supportive presence ___ Wedding ___ Other (describe below) Pastoral Comments patient has declined in the last hours and will be removed from the bi-pap machine when the family is ready; pt is not expected to survive; presence given to the family; sat with the spouse who has also been a patient in this hospital in recent months and weeks; spouse is worried about how am I going to live without him, I don't know; pt is not responsive; other family members are in the room; offer of prayer is welcomed; listened as spouse talks about their lives; offer of support and presence given throughout the day as desired by the family
--- NOTE | 2024-01-30 14:13 | CASEMGMT ---
Stephenie from the [facility] calls this RN CM. Stephenie given an update of pt status at this time. Stephenie # is [phone] ext. [phone].
--- NOTE | 2024-01-30 15:00 | EXP.PCM_ITS ---
Preliminary Cause of Preliminary Cause of Preliminary Cause of : Suspected lung cancer. Date of Admission: 01/24/24 Date of : 01/30/24 Principle Diagnosis Problem List: Active and Suspected Problems (Updated 01/30/24 @ 00:02 by Background Daemon) Diabetic hypoglycemia (Acute) Episode of unresponsiveness (Acute) Bilateral pleural effusion (Acute) Hospital Course Patient presented from a longterm with decreased oral intake and hypoglycemia. Patient was encephalopathic. Patient was felt to have acute COPD exacerbation and also was noted to have a lung opacity. Lung opacity was concerning for malignancy. He was also noted to have a pleural effusion and patient underwent a thoracentesis. The thoracentesis was exudative in etiology with pending cytology. Patient continued to decline. I evaluated the patient on the and met with family. They wondered about aggressiveness of care but I ultimately would defer to the patient about what he would want. They agreed to meet with hospice but the patient's condition further worsened on the and patient continued to decline and ultimately on January 29 at 1414. But is concerned the patient has underlying malignancy but cytology is still pending at this time. Visit Charges Inpatient E&M: 55354 [facility] [place] [facility]
--- NOTE | 2024-01-30 15:33 | CHAPLAIN ---
Type of Pastoral Visit ___ Initial Visit ___ Follow-up Visit ___ On-call Visit ___ General Patient Visit ___ Spiritual Assessment ___ Family Conference _x__ Bereavement ___ Rapid Response ___ Code Blue ___ Other (describe below) Pastoral Care Referral From ___ Patient ___ Family ___ Nurse ___ Physician ___ Distributor Of Directories ___ Bullard Machine Operator ___ Other (describe below) Sacrament/Intervention ___ Active listening ___ Anointing ___ Scientologist ___ Bereavement ___ Communion ___ Soha exploration ___ ___ Life review ___ Prayer ___ Reconciliation ___ Sacrament of Sick ___ Supportive presence ___ Wedding ___ Other (describe below) Pastoral Comments family members had already left the building after patient this afternoon; support offered to staff
[2024-02-01 05:56] LABS: Cytology, Body Fluid / CSF SEE PATHOLOGY REPORT
== END 2024-01-30 16:59 | DRG 637 ==
LOC: ED 15:52 → ICU 01-25 05:43
PROVIDERS: Hospitalist; Admitting Provider Family Medicine; Emergency Provider Emergency Medicine; PCP Family Medicine
DX: E11.649 Type 2 diabetes mellitus with hypoglycemia without coma (principal); J96.21 Acute and chronic respiratory failure with hypoxia; G93.41 Metabolic encephalopathy; E87.29 Other acidosis; N13.8 Other obstructive and reflux uropathy; C34.90 Malignant neoplasm of unspecified part of unspecified bronchus or lung; J90 Pleural effusion, not elsewhere classified; I13.0 Hypertensive heart and chronic kidney disease with heart failure and stage 1 through stage 4 chronic kidney disease, or unspecified chronic kidney disease; I50.42 Chronic combined systolic (congestive) and diastolic (congestive) heart failure; E11.22 Type 2 diabetes mellitus with diabetic chronic kidney disease; J44.9 Chronic obstructive pulmonary disease, unspecified; N18.30 Chronic kidney disease, stage 3 unspecified; F32.A Depression, unspecified; K21.9 Gastro-esophageal reflux disease without esophagitis; Z79.4 Long term (current) use of insulin; E78.5 Hyperlipidemia, unspecified; I25.10 Atherosclerotic heart disease of native coronary artery without angina pectoris; G89.29 Other chronic pain; Z95.5 Presence of coronary angioplasty implant and graft; Z87.891 Personal history of nicotine dependence; Z79.82 Long term (current) use of aspirin; Z79.02 Long term (current) use of antithrombotics/antiplatelets; R62.7 Adult failure to thrive; Z66 Do not resuscitate; N40.1 Benign prostatic hyperplasia with lower urinary tract symptoms; Z51.5 Encounter for palliative care; Z68.21 Body mass index [BMI] 21.0-21.9, adult
CPT/HCPCS: 32555; 36600; 71045; 71046; 80048; 80053; 80076; 81001; 81002; 82803; 82962; 83615; 83690; 83735; 84100; 84145; 84157; 85025; 85027; 87493; 88108; 88305; 88313; 88341; 88342; 89050; 93005; 94002; 94003; 94640; 94762; 97162; 97166; 97530; 97803; 99285; P9612; A4216; J2405